=== PATIENT | male | born 1945 | race Caucasian/White ===

== ENCOUNTER 2021-11-02 12:28 | Emergency (ER) | payer MEDICARE ==
[2021-11-02 12:53] VITALS: TEMP 98.8
--- NOTE | 2021-11-02 13:39 | XR ---
EXAMINATION TYPE: XR chest 2V DATE OF EXAM: 11/02/2021 COMPARISON: Chest x-ray 09/17/2021 HISTORY: Difficulty breathing TECHNIQUE: Frontal and lateral views of the chest are obtained. FINDINGS: Interstitial changes are again noted within the lungs. No evident pneumothorax. Cardiac me diastinal silhouette is stable. Aorta is dense. There is mild blunting the costophrenic angles. Bronc hial wall thickening is noted. Suspect there are calcified pleural plaques present. IMPRESSION: Correlate for interstitial lung disease, possible interstitial edema, difficult to exclu de small effusion. CT may be of benefit.
[2021-11-02 13:47] LABS: Basophils # (A) 0.1 k/uL (0-0.2); Basophils % (A) 1 %; Eosinophils # (A) 0.2 k/uL (0-0.7); Eosinophils % (A) 2 %; HCT 42.8 % (39.0-53.0); HGB 13.7 gm/dL (13.0-17.5); Lymphocytes # (A) 0.9 k/uL (1.0-4.8); Lymphocytes % (A) 10 %; MCHC 32.1 g/dL (31.0-37.0); MCV 93.2 fL (80.0-100.0); Mean Platelet Volume 7.4; Monocytes # (A) 0.5 k/uL (0-1.0); Monocytes % (A) 6 %; Neutrophils % (A) 79 %; Platelet Count 212 k/uL (150-450); RBC 4.59 m/uL (4.30-5.90); RDW 13.9 % (11.5-15.5); WBC 8.8 k/uL (3.8-10.6)
[2021-11-02 14:03] LABS: ALT 73 U/L (4-49); AST 55 U/L (17-59); African American GFR (CKD) >90 (>60 ml/min/1.73 sqM); Albumin 4.1 g/dL (3.5-5.0); Alkaline Phosphatase 75 U/L (38-126); Anion Gap 7 mmol/L; Blood Urea Nitrogen 24 mg/dL (9-20); Calcium 8.9 mg/dL (8.4-10.2); Carbon Dioxide 25 mmol/L (22-30); Chloride 106 mmol/L (98-107); Glucose 103 mg/dL (74-99); Non-African American GFR(CKD) 86 (>60 ml/min/1.73 sqM); Potassium 4.5 mmol/L (3.5-5.1); Sodium 138 mmol/L (137-145); Total Bilirubin 1.7 mg/dL (0.2-1.3); Total Protein 7.4 g/dL (6.3-8.2)
[2021-11-02 14:04] LABS: INR 1.1 (<1.2); Partial Thromboplastin Time 28.2 sec (22.0-30.0); Prothrombin Time 11.6 sec (9.0-12.0)
[2021-11-02] MEDS ORDERED: FUROSEMIDE 10 MG/ML 4 ML VIAL IV STA (15:31)
--- NOTE | 2021-11-02 16:21 | CT ---
EXAMINATION TYPE: CT angio chest DATE OF EXAM: 11/02/2021 COMPARISON: Chest x-ray earlier today. HISTORY: Difficulty breathing. CT DLP: 471.3 mGycm. Automated Exposure Control for Dose Reduction was Utilized. CONTRAST: CTA scan of the thorax is performed with IV Contrast, patient injected with 78ml mL of Isovue 370, pu lmonary embolism protocol. MIP Images are created on CT scanner and reviewed. FINDINGS: LUNGS: Exam suboptimal as patient unable to hold breath. There are small to moderate-sized bilateral pleural effusions. There is increased alveolar and interstitial opacities bilaterally consistent with mild to moderate edema. No pneumothorax seen bilaterally. MEDIASTINUM: Suboptimal study due to patient inability to hold breath but no convincing CT evidence f or acute pulmonary embolism. Persistent cardiomegaly. No pericardial effusion. Reflux of contrast int o IVC and hepatic veins consistent with right heart failure. Prominent bilateral hilar and thoracic l ymph nodes. OTHER: Scoliosis with multilevel spurring in the thoracolumbar spine. There is 4.5 x 2.6 cm thin-wal led cyst in the anterior abnormal wall midline lower thorax presumed benign probable dermatologic in etiology axial image 81 IMPRESSION: Suboptimal study without acute pulmonary embolism. Findings consistent with CHF exacerbat ion as there is cardiomegaly with small to moderate-sized bilateral pleural effusions and mild to mod erate alveolar and interstitial edema felt present.
--- NOTE | 2021-11-02 17:48 | ED ---
SOB HPI - General Chief Complaint: Shortness of Breath Stated Complaint: SOB Time Seen by Provider: 11/02/21 12:55 Source: patient, RN notes reviewed Mode of arrival: ambulatory Limitations: no limitations - History of Present Illness Initial Comments: 68-year-old male presents with complaints of shortness of breath with this has been going on for last several days he has exertional dyspnea slight orthopnea no fevers chills nausea vomiting sweats no chest pain. He was instructed to come in for evaluation additionally a echocardiogram was requested. Patient has had a cough with minimal phlegm production MD Complaint: shortness of breath - Related Data Home Medications Medication Instructions Recorded Confirmed Aspirin EC [Ecotrin Low Dose] 81 mg PO DAILY 11/02/21 11/02/21 Ezetimibe [Zetia] 10 mg PO DAILY 11/02/21 11/02/21 Furosemide [Lasix] 20 mg PO MOWEFR 11/02/21 11/02/21 Gabapentin [Neurontin] 400 mg PO BID 11/02/21 11/02/21 Gabapentin [Neurontin] 400 mg PO BID PRN 11/02/21 11/02/21 HYDROcodone/APAP 10-325MG [[place] 1 tab PO QID PRN 11/02/21 11/02/21 10-325] Lansoprazole 30 mg PO DAILY 11/02/21 11/02/21 Meloxicam [Mobic] 15 mg PO DAILY 11/02/21 11/02/21 Metoprolol Tartrate [Lopressor] 25 mg PO BID 11/02/21 11/02/21 lisinopriL [Zestril] 20 mg PO DAILY 11/02/21 11/02/21 modafiniL [Provigil] 200 mg PO DAILY 11/02/21 11/02/21 rOPINIRole HCL [Requip] 8 mg PO HS 11/02/21 11/02/21 Allergies Allergy/AdvReac Type Severity Reaction Status Date / Time No Known Allergies Allergy Verified 11/02/21 14:31 Review of Systems ROS Statement: Those systems with pertinent positive or pertinent negative responses have been documented in the HPI. ROS Other: All systems not noted in ROS Statement are negative. Past Medical History Past Medical History: Heart Failure, Hypertension Additional Past Medical History / Comment(s): esophageal constriction in the past History of Any Multi-Drug Resistant Organisms: None Reported Past Surgical History: Heart Catheterization Past Psychological History: No Psychological Hx Reported Smoking Status: Former smoker Past Alcohol Use History: None Reported Past Drug Use History: None Reported General Exam - General Exam Comments Initial Comments: This is a well-developed well-nourished awake alert oriented 3 male Limitations: no limitations General appearance: alert, in no apparent distress Head exam: Present: atraumatic, normocephalic, normal inspection Eye exam: Present: normal appearance, PERRL, EOMI. Absent: scleral icterus, conjunctival injection, periorbital swelling ENT exam: Present: normal exam, mucous membranes moist Neck exam: Present: normal inspection, full ROM, other. Absent: tenderness, meningismus, lymphadenopathy Respiratory exam: Present: normal lung sounds bilaterally, decreased breath sounds (No stridor JVD or bruits). Absent: respiratory distress, wheezes, rales, rhonchi, stridor Cardiovascular Exam: Present: regular rate, normal rhythm, normal heart sounds. Absent: systolic murmur, diastolic murmur, rubs, gallop, clicks GI/Abdominal exam: Present: soft, normal bowel sounds. Absent: distended, tenderness, guarding, rebound, rigid Extremities exam: Present: normal inspection, full ROM, normal capillary refill. Absent: tenderness, pedal edema, joint swelling, calf tenderness Back exam: Present: normal inspection Neurological exam: Present: alert, oriented X3, CN II-XII intact Psychiatric exam: Present: normal affect, normal mood Skin exam: Present: warm, dry, intact, normal color. Absent: rash Course Vital Signs 11/02/21 11/02/21 11/02/21 12:48 13:30 17:11 Temperature 98.8 F Pulse Rate 67 62 Respiratory 24 20 20 Rate Blood Pressure 143/81 132/80 O2 Sat by Pulse 94 L 96 Oximetry Medical Decision Making - Medical Decision Making I did a long discussion with patient regarding findings he does not want stay in the hospital we did discuss admission he prefer to go home he will double up on Lasix and start taking them daily for next couple days follow-up with his doctor as are have an appointment with cardiology next today being Tuesday echocardiogram was artery performed. We did discuss return parameters additionally he does state that he feels better after the initial Lasix dose. He has increased aeration and less - Lab Data Result diagrams: 11/02/21 13:34 11/02/21 13:34 Lab Results 11/02/21 11/02/21 11/02/21 Range/Units 13:34 13:34 13:34 WBC 8.8 (3.8-10.6) k/uL RBC 4.59 (4.30-5.90) m/uL Hgb 13.7 (13.0-17.5) gm/dL Hct 42.8 (39.0-53.0) % MCV 93.2 (80.0-100.0) fL MCH 30.0 (25.0-35.0) pg MCHC 32.1 (31.0-37.0) g/dL RDW 13.9 (11.5-15.5) % Plt Count 212 (150-450) k/uL MPV 7.4 Neutrophils % 79 % Lymphocytes % 10 % Monocytes % 6 % Eosinophils % 2 % Basophils % 1 % Neutrophils # 7.0 (1.3-7.7) k/uL Lymphocytes # 0.9 L (1.0-4.8) k/uL Monocytes # 0.5 (0-1.0) k/uL Eosinophils # 0.2 (0-0.7) k/uL Basophils # 0.1 (0-0.2) k/uL PT 11.6 (9.0-12.0) sec INR 1.1 (<1.2) APTT 28.2 (22.0-30.0) sec D-Dimer 0.88 H (<0.60) mg/L FEU Sodium 138 (137-145) mmol/L Potassium 4.5 (3.5-5.1) mmol/L Chloride 106 (98-107) mmol/L Carbon Dioxide 25 (22-30) mmol/L Anion Gap 7 mmol/L BUN 24 H (9-20) mg/dL Creatinine 0.79 (0.66-1.25) mg/dL Est GFR (CKD-EPI)AfAm >90 (>60 ml/min/1.73 sqM) Est GFR (CKD-EPI)NonAf 86 (>60 ml/min/1.73 sqM) Glucose 103 H (74-99) mg/dL Plasma Lactic Acid Krishna (0.7-2.0) mmol/L Calcium 8.9 (8.4-10.2) mg/dL Magnesium 2.0 (1.6-2.3) mg/dL Total Bilirubin 1.7 H (0.2-1.3) mg/dL AST 55 (17-59) U/L ALT 73 H (4-49) U/L Alkaline Phosphatase 75 (38-126) U/L Troponin I (0.000-0.034) ng/mL NT-Pro-B Natriuret Pep pg/mL Total Protein 7.4 (6.3-8.2) g/dL Albumin 4.1 (3.5-5.0) g/dL 11/02/21 11/02/21 11/02/21 Range/Units 13:34 13:34 13:34 WBC (3.8-10.6) k/uL RBC (4.30-5.90) m/uL Hgb (13.0-17.5) gm/dL Hct (39.0-53.0) % MCV (80.0-100.0) fL MCH (25.0-35.0) pg MCHC (31.0-37.0) g/dL RDW (11.5-15.5) % Plt Count (150-450) k/uL MPV Neutrophils % % Lymphocytes % % Monocytes % % Eosinophils % % Basophils % % Neutrophils # (1.3-7.7) k/uL Lymphocytes # (1.0-4.8) k/uL Monocytes # (0-1.0) k/uL Eosinophils # (0-0.7) k/uL Basophils # (0-0.2) k/uL PT (9.0-12.0) sec INR (<1.2) APTT (22.0-30.0) sec D-Dimer (<0.60) mg/L FEU Sodium (137-145) mmol/L Potassium (3.5-5.1) mmol/L Chloride (98-107) mmol/L Carbon Dioxide (22-30) mmol/L Anion Gap mmol/L BUN (9-20) mg/dL Creatinine (0.66-1.25) mg/dL Est GFR (CKD-EPI)AfAm (>60 ml/min/1.73 sqM) Est GFR (CKD-EPI)NonAf (>60 ml/min/1.73 sqM) Glucose (74-99) mg/dL Plasma Lactic Acid Krishna 0.7 (0.7-2.0) mmol/L Calcium (8.4-10.2) mg/dL Magnesium (1.6-2.3) mg/dL Total Bilirubin (0.2-1.3) mg/dL AST (17-59) U/L ALT (4-49) U/L Alkaline Phosphatase (38-126) U/L Troponin I <0.012 (0.000-0.034) ng/mL NT-Pro-B Natriuret Pep 6620 pg/mL Total Protein (6.3-8.2) g/dL Albumin (3.5-5.0) g/dL - EKG Data -: EKG Interpreted by Me EKG shows normal: sinus rhythm EKG Comments: Sinus rhythm of 56. Interval 169 QRS duration 102 QT since QTC 448/439 nonspecific T-wave configuration PVC noted - Radiology Data Radiology results: report reviewed, image reviewed (Imaging reviewed evidence of increased pulmonary vascular congestion) Disposition Clinical Impression: Congestive heart failure Disposition: HOME SELF-CARE Condition: Good Instructions (If sedation given, give patient instructions): Heart Failure (ER) Is patient prescribed a controlled substance at d/c from ED?: No Referrals: Jacob Solano MD [Primary Care Provider] - 1-2 days Decision Time: 17:35
[2021-11-02 18:00] VITALS: BP 138/85; PULSE 56; RESP 18
--- NOTE | 2021-11-03 06:57 | ECHOF ---
Referral Reason:Dyspnea MEASUREMENTS -------- HEIGHT: 170.2 cm WEIGHT: 77.1 kg BP: RVIDd: 4.4 cm (< 3.3) IVSd: 1.2 cm (0.6 - 1.1) LVIDd: 5.5 cm (3.9 - 5.3) LVPWd: 1.1 cm (0.6 - 1.1) IVSs: 1.6 cm LVIDs: 4.9 cm LVPWs: 1.2 cm LAESV Index (A-L): 62.37 ml/m MV EXCURSION: 15.495 mm (> 18.000) MV EF SLOPE: 47 mm/s (70 - 150) EPSS: 0.8 cm AV maxP.44 mmHg AV meanP.82 mmHg AR PHT: 415 ms RAP: 10.00 mmHg RVSP: 73.48 mmHg FINDINGS -------- Sinus rhythm. This was a technically adequate study. The left ventricular size is normal. There is mild concentric left ventricular hypertrophy. Overa ll left ventricular systolic function is mild-moderately impaired with, an EF between 40 - 45 %. The right ventricle is severely enlarged. LA is severely dilated >40 ml/m2 The right atrial size is normal. There is severe aortic valve sclerosis. There is mild aortic regurgitation. There is moderate-to- severe aortic stenosis present. Peak/mean gradient across the Aortic Valve is 64.44mmHg / 34.82mmHg . Moderate mitral annular calcification present. Tbcouszc-ba-lhvazj mitral regurgitation is present. Moderate tricuspid regurgitation present. There is severe pulmonary hypertension. The right ventr icular systolic pressure, as measured by Doppler, is 73.48mmHg. Trace/mild (physiologic) pulmonic regurgitation. There is no pericardial effusion. Large Pleural Effusion. CONCLUSIONS -------- 1. There is mild concentric left ventricular hypertrophy. 2. Overall left ventricular systolic function is mild-moderately impaired with, an EF between 40 - 45 %. 3. The right ventricle is severely enlarged. 4. LA is severely dilated >40 ml/m2 5. There is mild aortic regurgitation. 6. There is ufbvczre-jt-swkvmn aortic stenosis present. 7. Peak/mean gradient across the Aortic Valve is 64.44mmHg / 34.82mmHg. 8. Ztdwpyev-py-jnuwht mitral regurgitation is present. 9. Moderate tricuspid regurgitation present. 10. There is severe pulmonary hypertension. 11. Trace/mild (physiologic) pulmonic regurgitation. MILK DRYING MACHINE OPERATOR: Melodie Gay RDCS
== END 2021-11-02 18:00 | disposition home or self-care (01) ==
LOC: EC 12:28
DX: I11.0 Hypertensive heart disease with heart failure (principal); I50.9 Heart failure, unspecified; Z87.891 Personal history of nicotine dependence; Z79.899 Other long term (current) drug therapy
CPT/HCPCS: 36415; 93005; 93306; 85379; 83880; 80053; 83605; 83735; 84484; 85025; 85610; 85730; 71046; 71275; 99285; 96374; J1940; Q9967

== ENCOUNTER → 2022-01-04 | Outpatient (CLI) | payer MEDICARE ==
[2022-01-04 12:24] LABS: INR 1.1 (<1.2); Partial Thromboplastin Time 27.9 sec (22.0-30.0); Prothrombin Time 11.4 sec (9.0-12.0)
[2022-01-04 17:55] LABS: Albumin 4.2 g/dL (3.8-4.9); Albumin/Globulin Ratio 1.49 (1.60-3.17); BUN/Creat Ratio 38.43 Ratio (12.00-20.00); Blood Urea Nitrogen 30.9 mg/dL (9.0-27.0); Calcium 9.2 mg/dL (8.7-10.3); Globulin 2.8 g/dL (1.6-3.3); Non-African American GFR(CKD) 85.4 (60.0-200.0); Potassium 4.4 mmol/L (3.5-5.5); Total Bilirubin 0.5 mg/dL (0.30-1.20); Total Protein 7.1 g/dL (6.2-8.2)
[2022-01-04 17:57] LABS: HCT 41.9 % (39.6-50.0); HGB 13.2 g/dL (13.0-17.0); MCH 29.2 pg (27.0-32.0); MCHC 31.5 g/dL (32.0-37.0); MCV 92.7 fL (80.0-97.0); NRBC Per 100 WBC 0 /100 WBCS (0.0-0.0); Platelet Count 187 X 10*3/uL (140-440); RBC 4.52 X 10*6/uL (4.40-5.60); RDW 14.6 % (11.5-14.5); WBC 5.96 X 10*3/uL (4.50-10.00)
== END | disposition home or self-care (01) ==
LOC: LABPAT 10:29
PROVIDERS: ATTEND Thoracic Surgery (Cardiothoracic Vascular Surgery)
DX: I35.0 Nonrheumatic aortic (valve) stenosis (principal)
CPT/HCPCS: 80053; 85027; 85610; 85730

== ENCOUNTER 2022-01-06 06:03 | Inpatient (IN) | payer MEDICARE ==
[~2022-01-06 06:03] MED LIST: ASPIRIN 325 MG TAB PO ONE; ATORVASTATIN 10 MG TAB PO ONE; CLEVIDIPINE BUTYRATE 25 MG in EMPTY BAG 1 BAG IV PRN; CLOPIDOGREL 75 MG TAB PO ONE; ELECTROLYTE-A SOLUTION 1,000 ML with POTASSIUM CHLORIDE 100 MEQ, MAGNESIUM SULFATE 16 M... IV PRN; INSULIN REGULAR 100 UNIT in SODIUM CHLORIDE 0.9% 100 ML IV PRN; LACTATED RINGERS 1,000 ML IV SCH; METOPROLOL TARTRATE 25 MG TAB PO ONE; NITROGLYCERIN-D5W PMX 25 MG/250 ML BTL IV PRN; PROTAMINE SULFATE 250 MG in EMPTY BAG 1 BAG IV PRN; SODIUM CHLORIDE 0.9% 500 ML 500 ML INTRAARTER PRN; TRANEXAMIC ACID 2,000 MG in SODIUM CHLORIDE 0.9% 80 ML IV PRN
[2022-01-06] MEDS ORDERED: GLYCOPYRROLATE 0.2 MG/ML 2 ML VIAL ONE (07:44)
[2022-01-06] MEDS ORDERED: methylPREDNISolone ACETATE 40 MG/ML 1 ML VIAL ONE (07:44)
[2022-01-06] MEDS ORDERED: PROPOFOL 10 MG/ML 20 ML VIAL IV ONE (07:44)
[2022-01-06] MEDS ORDERED: MIDAZOLAM 2 MG/2 ML VIAL ONE (07:44)
[2022-01-06] MEDS ORDERED: ATROPINE SULFATE 0.1 MG/ML 10ML SYRINGE ONE (07:44)
[2022-01-06] MEDS ORDERED: PROTAMINE SULFATE 10 MG/ML 5 ML VIAL IV ONE (07:44)
[2022-01-06] MEDS ORDERED: ePHEDrine 50 MG/ML 1 ML VIAL ONE (07:44)
[2022-01-06] MEDS ORDERED: fentaNYL (PF) 50 MCG/ML 2 ML AMP ONE (07:44)
[2022-01-06] MEDS ORDERED: NEOSTIGMINE 1 MG/ML 10 ML VIAL ONE (07:44)
[2022-01-06] MEDS ORDERED: SUCCINYLCHOLINE CHLORIDE 100 MG/5 ML SYR IV ONE (07:44)
[2022-01-06] MEDS ORDERED: LIDOCAINE 2% INJ 20 MG/ML (2 ML VIAL) ONE (07:44)
[2022-01-06] MEDS ORDERED: ROCURONIUM 10 MG/ML (5 ML VIAL) IV ONE (07:44)
[2022-01-06] MEDS ORDERED: IOPAMIDOL-370 125ML BTL INJ ONE (09:17)
[2022-01-06] MEDS ORDERED: GABAPENTIN 400 MG CAP PO PRN (09:44)
[2022-01-06] MEDS ORDERED: ONDANSETRON 4 MG/2 ML VIAL IVP PRN (09:44)
[2022-01-06] MEDS ORDERED: ACETAMINOPHEN TAB 325 MG TAB PO PRN (09:44)
[2022-01-06] MEDS ORDERED: Potassium Replacement Protocol 1 EACH MISC MISCELLANE PRN (09:44)
[2022-01-06] MEDS ORDERED: Magnesium Replacement Protocol 1 EACH MISC MISCELLANE PRN (09:44)
[2022-01-06] MEDS ORDERED: LACTATED RINGERS 1,000 ML IV SCH (09:44)
[2022-01-06] MEDS ORDERED: IPRATROPIUM-ALBUTEROL 3 ML NEB INHALATION PRN (09:44)
--- NOTE | 2022-01-06 09:59 | P.OP ---
Description of Procedure: Transcatheter Aoritc Valve Replacement Operative report PROCEDURE PERFORMED: 1. Percutaneous Aortic Valve Implantation using a 29 mm Core-Valve Evolut-Pro Plus. 2. Transesophageal echocardiography (performed by anesthesia) 3. Ultrasound guided access and repair of right femoral artery access site by Perclose closure device. 4. Placement of temporary pacemaker wire. 5. Aortic root angiography 6. Post TAVR balloon valvuloplasty with a 26mm Z Med balloon INDICATIONS: 1. 76 year-old with a history of severe symptomatic aortic valve stenosis. PERFORMING PHYSICIANS: 1. David Morales DO Interventional Cardiology 2. Renaldo Bautista MD Interventional Cardiology. 3. Wesley Walden MD, Cardiothoracic Surgeon. 4. Ad Sinha MD Proctoring Interventional cardiology SEDATION: General anesthesia provided by anesthesia, see separate note APPROACH: Right femoral artery via percutaneous approach PROCEDURE DESCRIPTION: The patient was discussed at valve clinic with multidisciplinary approach with cardiothoracic surgeon as well as water manager and thought better treated with TAVR. Risks, benefits, and alternatives of the procedure had been explained to the patient who understood the risks and agreed to proceed. After consents were obtained, patient was brought to the transcatheter aortic valve implantation room in the cardiac laborer shellfish processing and general anesthesia was provided by the anesthesiologist (see separate report). Patient did have a transient 3rd degree block with HR into 30's for 30-60 seconds during intubation which he tolerated well and then improved, may have been related to hypervagal reaction. Once full body sterile prep was performed, right subclavian venous access was obtained and a temporary pacemaker was screwed in, performed by cardiothoracic surgery. Pacing threshholds were checked and deemed appropriate. Next the left femoral artery was accessed using a modified Seldinger technique, ultrasound guidance and micropuncture technique. A 6 Surinamese Rabi sheath was placed in the left femoral artery. Next, a 6-Surinamese pigtail catheter was advanced into the aorta and positioned in the aortic root, aortic root angiography was performed to determine optimal deployment angle. The right femoral artery was accessed using modified Seldinger technique, micropuncture technique and under direct ultrasound guidance. Femoral angiogram was done showing access in the common femoral artery and a 6Fr sheath was placed. Next preclose technique was performed using 2 Percloses. Next a 0.035 Lunderquist wire was placed in the Aorta via a pigtail catheter. Over that the arteriotomy was serially dilated and a 14 Fr [place] sheath was placed. Next a 6F- AL1 catheter was advanced over a wire to the aortic root. A straight wire was advanced through the catheter and used to cross the severely stenotic valve. The AL1 was then exchanged for a 6Fr pigtail catheter and pressure measurements were obtained. The 0.035 Lunderquist wire was then positioned in the apex. Next a 29 mm Corevalve Evolut-Pro Plus was advanced. The valve was then positioned across the aortic valve and confirmed with aortic root angiography. The valve was initially partially deployed however needed repositioning and therefore was recaptured. The valve was then deployed in proper position using slow deployment and with rapid pacing in conjuncture with aortic root angiography and МАРИНА. The delivery system was withdrawn back into the arch and an aortic root injection and МАРИНА demonstrated mild to moderate paravalvular leak and a somewhat deeply seated valve. Therefore the decision was made to perform valvuloplasty. Balloon valvuloplasty was performed with a 26 mm Z Med balloon with gentle back traction. Repeat МАРИНА and aortic root angiography showed some improvement and positioning and more mild to moderate paravalvular leak. Further dilation was felt to have risk of ventricularization of valve and there was adequate shmuel stolic separation on hemodynamics and therefore decision was made to end the procedure. The preclose Perclose was then deployed in the right femoral artery and hemostasis was achieved. The pigtail was then advanced to the level of the iliac bifurcation via the left femoral access. Femoral angiogram was performed that showed no contrast leak. The left femoral angiogram demonstrated an arteriotomy in the common femoral artery and this was repaired using a 6F angioseal device with complete hemostasis. The temporary venous pacemaker was sutured in place. The patient was then transported to the ICU in hemodynamically stable condition, requiring no pressor support. COMPLICATIONS: None CONCLUSION: 1. Implantaion of 26 Core-Valve Evolut-Pro Plus transcatheter aortic valve via right femoral approach under МАРИНА and fluoro guidance with mild to moderate xu- valvular aortic regurgitation. 2. Placement of temporary pacemaker wire 3. Aortic Root Aortogram. 4. Post TAVR balloon valvuloplasty with a 26mm Z Med balloon 5. Temporary 3rd degree block during initiation of anesthesia which improved throughout case. Likely related to hypervagal response. RECOMMENDATIONS: The patient will be monitored in the ICU for hemodynamic and electrical stability. Patient will be on aspirin and Plavix.
--- NOTE | 2022-01-06 10:01 | P.ANPRN ---
Procedure Note - Anesthesia - Invasive Line Left Arterial Line Time Out Performed: Yes Date of Procedure: 01/06/22 Time of Procedure: 07:25 Location of Patient: PreOp Preparation: Sterile Prep, Sterile Dressing Arterial Line Location: Radial Ultrasound Used: No Narrative: Left radial arterial line placed by TELESALES AGENT
--- NOTE | 2022-01-06 10:03 | P.OP ---
Date of Procedure: 01/06/22 Preoperative Diagnosis: Symptomatic calcific aortic stenosis Postoperative Diagnosis: Same Procedure(s) Performed: Right transfemoral transcatheter aortic valve replacement with 29 mm core valve Implants: 29 mm Medtronic Corvalve Anesthesia: GETA Surgeon: Wesley Walden Manager Produce #1: David Morales (First captain room service) Manager Produce #2: Renaldo Bautista (Second captain room service) Estimated Blood Loss (ml): 20 IV fluids (ml): 500 Urine output (ml): 0 Pathology: none sent Condition: stable Disposition: ICU Indications for Procedure: 76-year-old male with symptomatic tricuspid aortic valvular stenosis scheduled for elective transcatheter aortic valve. Operative Findings: Final МАРИНА demonstrated low implant with mild to moderate aortic insufficiency Description of Procedure: Patient was brought to the cardiac catheterization laboratory and placed supine on the table. General anesthesia was induced. Patient had some third degree heart block following induction. The anterior torso and bilateral groins were sterilely prepped and draped. Right subclavian venous access was obtained with an 18-gauge needle and a guidewire threaded into the right atrium. Introducer and dilator were placed over the guidewire and through the introducer sheath a Medtronic screw-in ventricular lead was manipulated into the apex of the right ventricle. Pacing thresholds were 0.4 mV. The lead was secured in place with suture ligatures. Bilateral femoral access was obtained under ultrasound guidance by Dr. Morales. On the left long 6-Albanian sheath was placed up into the descending thoracic aorta and a pigtail threaded through this into the non- coronary cusp of the aortic root. On the right 7-Albanian sheath was placed under ultrasound into the right femoral artery and 2 Perclose devices were then deployed. An 8-[place]banian sheath was placed. The patient was systemically heparinized. Stiff wire was placed on the right and the 8-Albanian sheath exchanged for a 14-Albanian sheath after serial dilatation. This was advanced without difficulty into the descending thoracic aorta. Through this the valve was crossed with a straight wire and a Lunderquist wire was positioned in the apex of the ventricle. 29 Medtronic evolute Pro-plus core valve was loaded on the back table. It was brought up onto the field and checked under fluoroscopy. A 14-Albanian sheath was exchanged for the core valve delivery system and this was advanced around the arch without difficulty and across the aortic valve. The valve was initially deployed at levels of 2 on the right and 3 on the left. After release of the valve was noted that the valve had dropped. There was mild to moderate aortic insufficiency noted. The valve was recrossed and Lunderquist wire again positioned at the apex. The core valve delivery system was exchanged for a 14-Albanian sheath. Through this a 26 mm balloon was advanced across the prosthetic valve. Under rapid ventricular pacing this valve was dilated and an attempt was made to pull it back. All of this proceeded uneventfully however did not change the position of the valve and although the valve appeared more expanded there remained mild to moderate aortic insufficiency. Was decided to accept this. Heparin was reversed with protamine. The 14-Albanian sheath was removed and the Perclose devices deployed with excellent result. Femoral angiography demonstrated no leak and no narrowing. Good flow was noted in the right leg. The sheath was removed on the left and stasis obtained with direct pressure. Patient was transferred to the ICU after extubation in stable condition and in normal sinus rhythm.
[2022-01-06 10:13] VITALS: BMI 27.5
[2022-01-06] MEDS: HYDROcodone/APAP 10-325MG 1 EACH TAB PO PRN ×2 (10:18→20:48)
[2022-01-06] MEDS: EZETIMIBE 10 MG TAB PO SCH (10:19)
--- NOTE | 2022-01-06 10:25 | P.ANPRN ---
Procedure Note - Anesthesia - МАРИНА Intraop Pre Bypass МАРИНА Intraop - Anesthesia Indication: Aortic Stenosis Date of Procedure: 01/06/22 Pre-operative Diagnosis: Aortic Stenosis Post-operative Diagnosis: Same Surgeon: Wesley Walden Left Ventricle: EF 35% Ejection Fraction: Other (Global hypokinesis) Regional Wall Motion Abnormalities: None Left Ventricle Hypertrophy: Yes (1.4 cm) R. Ventricle Function: Normal Anatomy: Trileaflet Aortic Stenosis: Severe (Peak 78 mmHg, Mean 42 mmHg) Aortic Regurgitation: Mild Mitral Stenosis: None Mitral Regurgitation: Mild Tricuspid Stenosis: None Tricuspid Regurgitation: Trace Pulmonic Stenosis: None Pulmonic Regurgitation: Trace R. Atrial Dilation: No R. Atrial PFO: No L. Atrial Dilation: No Aorta: Moderate calcific disease Aortic Dissection: No Aortic Calcification: Moderate Plural Effusion: None - МАРИНА Intraop Post Bypass МАРИНА Intraop Post Bypass Procedure Performed: TAVR Left Ventricle: EF 35% Ejection Fraction: Other Regional Wall Motion Abnormalities: None R. Ventricle Function: Normal Aortic Valve: S/p TAVR and ballooning. Gradient Peak 7 mmHg, Mean 2 mmHg. Moderate perivalvular leak at [facility]. Some improvement after ballooning. Mitral Valve: MR slightly increased to 2+ Tricuspid: Unchanged Pulmonic: Unchanged Aortic Dissection: No
--- NOTE | 2022-01-06 10:43 | P.CNPUL ---
History of Present Illness Consult date: 01/06/22 Chief complaint: TAVR History of present illness: This is a 76-year-old male patient is currently post TAVR procedure. The patient underwent a transfemoral transcatheter aortic valve replacement. This was done on an elective basis. The patient is currently in the intensive care unit. The patient is doing well. Awake and alert. Moving all 4 extremities. No neurologic deficits. No headaches been altered mentation. His underlying silent cardiac rhythm is sinus bradycardia and the patient is currently paced at the rate of 50. He is hemodynamically stable on no pressors. Surgical wound sites over the groins bilaterally are dry clean and intact. The patient has no active complaints for now. His resting comfortably in bed. The patient is known to have severe aortic stenosis. His other comorbid conditions include hypertension, hyperlipidemia, previous history of acid reflux and esophageal strictures along with restless leg syndrome and osteoarthritis. He was experiencing progressive dyspnea on outpatient basis. He underwent a cardiac catheterization preoperatively and the patient was found to have calcified coronaries and mild triple-vessel disease and severe aortic stenosis. His left ventricle ejection fraction preoperatively was around 40-45% and he also had severe pulmonary hypertension with mild concentric LVH. Review of Systems Constitutional: Denies chills, Denies fever Eyes: denies as per HPI, denies blurred vision, denies bulging eye, denies decreased vision, denies diplopia, denies discharge, denies dry eye, denies irritation, denies itching, denies pain, denies photophobia, denies loss of peripheral vision, denies loss of vision, denies tunnel vision/blind spots Ears: deny: decreased hearing, ear discharge, earache, tinnitus Ears, nose, mouth and throat: Reports as per HPI Breasts: absent: as per HPI, gynecomastia Cardiovascular: Reports as per HPI, Reports decreased exercise tolerance, Reports dyspnea on exertion Respiratory: Reports dyspnea Gastrointestinal: Reports as per HPI Genitourinary: Reports as per HPI Musculoskeletal: Reports as per HPI Musculoskeletal: absent: ankle pain, ankle stiffness, ankle swelling, as per HPI, elbow pain, elbow stiffness, elbow swelling, foot pain, foot stiffness, foot swelling, hand pain, hand stiffness, hand swelling, hip pain, hip stiffness, hip swelling, knee pain, knee stiffness, knee swelling, shoulder pain, shoulder stiffness, shoulder swelling, wrist pain, wrist stiffness, wrist swelling Integumentary: Reports as per HPI Neurological: Reports as per HPI Psychiatric: Reports as per HPI Endocrine: Reports as per HPI Hematologic/Lymphatic: Reports as per HPI Allergic/Immunologic: Reports as per HPI Past Medical History Past Medical History: Heart Failure, GERD/Reflux, Hyperlipidemia, Hypertension, Musculoskeletal Disorder, Osteoarthritis (OA) Additional Past Medical History / Comment(s): esophageal constriction in the past, aortic valve issue, RLS, past hx. of compression fx. in back after a fall, chronic back pain, SOB w/exertion but improved recently History of Any Multi-Drug Resistant Organisms: None Reported Past Surgical History: Heart Catheterization Additional Past Surgical History / Comment(s): colonoscopy, EGD, МАРИНА Past Anesthesia/Blood Transfusion Reactions: No Reported Reaction Smoking Status: Former smoker Medications and Allergies Home Medications Medication Instructions Recorded Confirmed Type Aspirin EC [Ecotrin Low Dose] 81 mg PO DAILY 11/02/21 01/06/22 History Ezetimibe [Zetia] 10 mg PO DAILY 11/02/21 01/06/22 History Furosemide [Lasix] 20 mg PO DAILY 11/02/21 01/06/22 History Gabapentin [Neurontin] 400 mg PO QID PRN 11/02/21 01/06/22 History HYDROcodone/APAP 10-325MG [[place] 1 tab PO QID PRN 11/02/21 01/06/22 History 10-325] Lansoprazole 30 mg PO DAILY 11/02/21 01/06/22 History Meloxicam [Mobic] 15 mg PO DAILY 11/02/21 01/06/22 History Metoprolol Tartrate [Lopressor] 25 mg PO BID 11/02/21 01/06/22 History lisinopriL [Zestril] 20 mg PO DAILY 11/02/21 01/06/22 History modafiniL [Provigil] 200 mg PO DAILY 11/02/21 01/06/22 History rOPINIRole HCL [Requip] 8 mg PO HS 11/02/21 01/06/22 History Pramipexole [Mirapex] 0.5 mg PO HS 11/17/21 01/06/22 History Allergies Allergy/AdvReac Type Severity Reaction Status Date / Time No Known Allergies Allergy Verified 12/30/21 12:22 Physical Exam Vitals: Vital Signs Temp Pulse Resp BP BP Pulse Ox 01/06/22 06:55 97.8 F 45 L 16 138/67 135/67 98 Intake and Output 01/05/22 01/06/22 01/06/22 22:59 06:59 14:59 Intake Total 400 400 Balance 400 400 Intake: IV 400 400 Other: Weight 75.1 kg 75.1 kg Gen. appearance the patient is calm and comfortable currently on 2 L of oxygen by nasal cannula Head exam was generally normal. There was no scleral icterus or corneal arcus. Mucous membranes were moist. Neck was supple and without jugular venous distension, thyromegaly, or carotid bruits. Carotids were easily palpable bilaterally. There was no adenopathy. The patient has a right subclavian transvenous pacemaker catheter for now Lungs were clear to auscultation and percussion, and with normal diaphragmatic excursion. No wheezes or rales were noted. Cardiac exam revealed the PMI to be normally situated and sized. The rhythm was regular and no extrasystoles were noted during several minutes of auscultation. The first and second heart sounds were normal and physiologic splitting of the second heart sound was noted. There were no murmurs, rubs, clicks, or gallops. Abdominal exam revealed normal bowel sounds. The abdomen was soft, non-tender, and without masses, organomegaly, or appreciable enlargement of the abdominal aorta. Examination of the extremities revealed easily palpable radial, femoral and pedal pulses. There was no cyanosis, clubbing or edema. Examination of the skin revealed no evidence of significant rashes, suspicious appearing nevi or other concerning lesions. Neurologically, the patient is awake and alert and the patient does not have any focal neurological deficit. Cranial nerves are essentially intact. Results - Diagnostic Findings Chest x-ray: image reviewed Assessment and Plan Plan: Severe Aortic stenosis, post TAVR , postop day #0. Hemodynamically stable. The patient is encountered sinus bradycardia and the patient is currently paced at the rate of 50. Chest x-ray postop shows no acute abnormalities. No focal neurological deficit and the patient is neurologically intact at this point in time. Mild coronary artery disease, please refer to the preop cardiac catheterization Hypertension Hyperlipidemia Mild systolic heart failure with an ejection fraction 40-45% severe pulmonary hypertension preoperatively History of esophageal stricture with issues related to GE reflux Restless leg syndrome Osteoarthritis Hyperlipidemia Plan Monitor the cardiac rhythm and keep the cardiac rhythm paced at the rate of 50 Echocardiogram to be repeated tomorrow to evaluate for the bioprosthetic aortic valve And paralytic antibiotic coverage with IV cefazolin Heparin subcu for DVT prophylaxis Monitor neurologic outcome Monitor hemodynamics even the intensive care unit Resume all medications and keep the beta blockers on hold for now
--- NOTE | 2022-01-06 11:04 | XR ---
EXAMINATION TYPE: XR chest 1V portable DATE OF EXAM: 01/06/2022 COMPARISON: 11/02/2021 HISTORY: Postoperative cardiac surgery TECHNIQUE: Single frontal view of the chest is obtained. FINDINGS: Heart is enlarged and there is a right-sided cardiac lead. Hyperinflation suggests COPD is a diffuse interstitial pattern compatible with chronic interstitial pulmonary fibrosis. Calcified no dules are seen in the upper lungs bilaterally. Diffuse osteopenia. No pleural effusion. No pneumothor ax. Atherosclerotic change aorta. IMPRESSION: 1. COPD correlate for chronic interstitial lung disease. Pleural plaques are calcified granulomas lef t upper lobe.
[2022-01-06 11:05] LABS: Ionized Calcium 4.8 mg/dL (4.5-5.3)
[2022-01-06 11:13] LABS: ALT 18 U/L (4-49); AST 23 U/L (17-59); African American GFR (CKD) >90 (>60 ml/min/1.73 sqM); Albumin 3.2 g/dL (3.5-5.0); Alkaline Phosphatase 62 U/L (38-126); Anion Gap 5 mmol/L; Blood Urea Nitrogen 26 mg/dL (9-20); Carbon Dioxide 25 mmol/L (22-30); Chloride 108 mmol/L (98-107); Glucose 119 mg/dL (74-99); Magnesium 1.9 mg/dL (1.6-2.3); Non-African American GFR(CKD) >90 (>60 ml/min/1.73 sqM); Sodium 138 mmol/L (137-145); Total Bilirubin 0.5 mg/dL (0.2-1.3); Total Protein 5.9 g/dL (6.3-8.2)
[2022-01-06 11:18] LABS: INR 1.1 (<1.2); Partial Thromboplastin Time 29.8 sec (22.0-30.0); Prothrombin Time 11.6 sec (9.0-12.0)
[2022-01-06 11:19] LABS: Basophils % (A) 0 %; Eosinophils # (A) 0.2 k/uL (0-0.7); Eosinophils % (A) 4 %; HCT 38.5 % (39.0-53.0); Lymphocytes # (A) 0.9 k/uL (1.0-4.8); Lymphocytes % (A) 13 %; MCH 29.8 pg (25.0-35.0); MCHC 31.1 g/dL (31.0-37.0); Mean Platelet Volume 7.4; Monocytes # (A) 0.4 k/uL (0-1.0); Monocytes % (A) 6 %; Neutrophils # (A) 4.8 k/uL (1.3-7.7); Neutrophils % (A) 74 %; Platelet Count 155 k/uL (150-450); RBC 4.01 m/uL (4.30-5.90); RDW 14.2 % (11.5-15.5); WBC 6.4 k/uL (3.8-10.6)
[2022-01-06] MEDS: MAGNESIUM SULFATE-D5W PMX 1 GM in DEXTROSE/WATER 1 100ML.BAG IVPB SCH ×2 (12:45→15:12)
[2022-01-06] MEDS: METOPROLOL TARTRATE 25 MG TAB PO SCH (20:48)
[2022-01-06] MEDS ORDERED: PRAMIPEXOLE 0.5 MG TAB PO SCH (21:00)
[2022-01-06] MEDS ORDERED: rOPINIRole HCL 4 MG TABLET PO SCH (21:00)
[2022-01-07] MEDS: HEPARIN SODIUM,PORCINE/PF 5,000 UNIT/0.5 ML SYRINGE SQ SCH ×2 (00:02→09:08)
[2022-01-07] MEDS ORDERED: MAGNESIUM SULFATE-D5W PMX 1 GM in DEXTROSE/WATER 1 100ML.BAG IVPB SCH (05:00)
[2022-01-07] MEDS: HYDROcodone/APAP 10-325MG 1 EACH TAB PO PRN (06:23)
[2022-01-07 06:46] LABS: Ionized Calcium 4.9 mg/dL (4.5-5.3)
[2022-01-07 06:54] LABS: ALT 19 U/L (4-49); AST 26 U/L (17-59); African American GFR (CKD) >90 (>60 ml/min/1.73 sqM); Albumin 3.7 g/dL (3.5-5.0); Alkaline Phosphatase 70 U/L (38-126); Anion Gap 6 mmol/L; Blood Urea Nitrogen 20 mg/dL (9-20); Calcium 8.5 mg/dL (8.4-10.2); Carbon Dioxide 28 mmol/L (22-30); Chloride 104 mmol/L (98-107); Glucose 105 mg/dL (74-99); Magnesium 2.3 mg/dL (1.6-2.3); Non-African American GFR(CKD) >90 (>60 ml/min/1.73 sqM); Potassium 4.8 mmol/L (3.5-5.1); Sodium 138 mmol/L (137-145); Total Bilirubin 0.7 mg/dL (0.2-1.3); Total Protein 6.6 g/dL (6.3-8.2)
[2022-01-07 06:57] LABS: Basophils % (A) 0 %; Eosinophils # (A) 0.2 k/uL (0-0.7); Eosinophils % (A) 2 %; HGB 12.4 gm/dL (13.0-17.5); Lymphocytes # (A) 0.9 k/uL (1.0-4.8); Lymphocytes % (A) 9 %; MCH 28.6 pg (25.0-35.0); MCHC 30.3 g/dL (31.0-37.0); MCV 94.4 fL (80.0-100.0); Mean Platelet Volume 7.2; Monocytes # (A) 0.7 k/uL (0-1.0); Monocytes % (A) 7 %; Neutrophils # (A) 7.9 k/uL (1.3-7.7); Neutrophils % (A) 81 %; Platelet Count 163 k/uL (150-450); RBC 4.35 m/uL (4.30-5.90); RDW 14.2 % (11.5-15.5); WBC 9.8 k/uL (3.8-10.6)
[2022-01-07] MEDS ORDERED: PANTOPRAZOLE 40 MG TABLET PO SCH (07:30)
--- NOTE | 2022-01-07 08:39 | XR ---
EXAMINATION TYPE: XR chest 1V portable DATE OF EXAM: 01/07/2022 COMPARISON: 01/06/2022 HISTORY: Postop TECHNIQUE: Single frontal view of the chest is obtained. FINDINGS: Heart is enlarged and there is a right-sided cardiac lead. Hyperinflation suggests COPD is a diffuse interstitial pattern compatible with chronic interstitial pulmonary fibrosis. Calcified no dules are seen in the upper lungs bilaterally. Diffuse osteopenia. No pleural effusion. No pneumothor ax. Atherosclerotic change aorta. Calcification along the right hemidiaphragmatic surface noted. IMPRESSION: 1. COPD subsegmental areas of consolidation in the right lung base. This is new compared to prior exa m correlate for atelectasis versus early infiltrate. 2. Pleural plaques are suspected correlate for asbestos-related disease.
[2022-01-07] MEDS ORDERED: lisinopriL 20 MG TAB PO SCH (09:00)
[2022-01-07] MEDS ORDERED: MAGNESIUM HYDROXIDE 2,400 MG/10 ML CUP PO PRN (09:00)
[2022-01-07] MEDS ORDERED: MELOXICAM 7.5 MG TAB PO SCH (09:00)
[2022-01-07] MEDS ORDERED: FUROSEMIDE 20 MG TAB PO SCH (09:00)
[2022-01-07] MEDS ORDERED: CLOPIDOGREL 75 MG TAB PO SCH (09:00)
[2022-01-07] MEDS ORDERED: ATORVASTATIN 40 MG TAB PO SCH (09:00)
[2022-01-07] MEDS ORDERED: ASPIRIN 81 MG PO SCH (09:00)
[2022-01-07] MEDS: METOPROLOL TARTRATE 25 MG TAB PO SCH (09:08)
[2022-01-07] MEDS: EZETIMIBE 10 MG TAB PO SCH (09:09)
[2022-01-07 09:18] VITALS: TEMP 98.6
--- NOTE | 2022-01-07 09:42 | P.DS ---
Providers Date of admission: 01/06/22 06:03 Expected date of discharge: 01/07/22 Attending physician: David Morales DO Consults: 01/04/22 13:47 Consult to Anesthesia Routine Consulting Provider: Anesthesia,Services Consult Reason/Comments: Cardiac Surgery Pre-Op 01/06/22 09:44 Consult Physician Routine Consulting Provider: Tiny Campos Consult Reason/Comments: Pedorthist Consult: post cardiac surgery Do you want consulting provider notified?: Yes Consult Physician Routine Consulting Provider: Wesley Walden Consult Reason/Comments: [employer] Specialist Consult: post cardiac surgery Do you want consulting provider notified?: Yes Primary care physician: Jacob Solano MD Hospital Course: MEDICAL HISTORY: 1. Calcified aortic valve with severe symptomatic aortic valve stenosis 2. History of hypertension 3. History of hyperlipidemia 4. History of chronic systolic heart failure 5. Previous tobacco dependence 6. Restless leg syndrome PROCEDURE: 1. Percutaneous aortic valve implantation using a 29 mm Core Valve Evolute-Pro Plus 2. Transesophageal echocardiography performed by anesthesia 3. Ultrasound-guided access and repair of right femoral artery access site by Perclose closure device 4. Placement of temporary pacemaker wire 5. Aortic root angiography 6. Post TAVR balloon valvuloplasty with a 26 mm Z-Med balloon HISTORY OF PRESENT ILLNESS: This is a 76-year-old gentleman who follows on an outpatient basis with Dr. Jacob Solano for primary care and Dr. Oliveira for cardiology. He has a known history of severe aortic stenosis and has been symptomatic with progressive exertional dyspnea as well as extreme fatigue. He had been referred to structural heart clinic for evaluation for transcatheter aortic valve replacement after heart catheterization and transesophageal echocardiogram were completed. Echocardiography demonstrated systolic function with EF 45-50%, aortic valve area 0.7 cm with a peak/mean gradient 64/34 mmHg. Heart catheterization showed mild nonobstructive disease. After workup was completed STS risk score was calculated along with incremental risk and the patient was felt to be high risk for surgical aortic valve replacement, therefore transcatheter aortic valve replacement was recommended. The usual course of TAVR was discussed in detail the patient, risks and benefits were reviewed, shared decision making between cardiology, surgery, and the patient/family took place, and the patient consented to proceed with the procedure. HOSPITAL COURSE: The patient was brought to the hospital on 01/06/22, was taken to the extended stay area, prepared in the usual fashion, and subsequently taken to the cardiac catheterization laboratory where Dr. Morales and Dr. Walden completed TAVR procedure under general anesthesia with fluoroscopy and МАРИНА. The patient did have a transient episode of third degree heart block after anesthesia induction which resolved quickly. The valve was deployed under rapid ventricular pacing and proceeded without event. At the end of the procedure there was a peak/mean gradient 7/2 mmHg, hemodynamics were felt to be acceptable, and there was mild to moderate perivalvular leak. Upon completion of the procedure the patient was extubated and was transferred to the cardiovascular intensive care unit where he was recovered and monitored hemodynamically. His oxygen was titrated down, he was tolerating oral diet, his pain was controlled, follow-up TTE demonstrated no increase in his perivalvular leak which was felt to be acceptable, and he was ready to be discharged to home on postoperative day #1. He received written and verbal instruction regarding his medications, activity restrictions, signs and symptoms requiring physician notification, and follow-up appointments. Patient Condition at Discharge: Stable Plan - Discharge Summary Discharge Rx Participant: Yes New Discharge Prescriptions: New Acetaminophen Tab [Tylenol] 650 mg PO Q4HR PRN tab PRN Reason: Fever And/ Or Mild Pain (1-3) Clopidogrel [Plavix] 75 mg PO DAILY #30 tab Continue rOPINIRole HCL [Requip] 8 mg PO HS modafiniL [Provigil] 200 mg PO DAILY lisinopriL [Zestril] 20 mg PO DAILY Metoprolol Tartrate [Lopressor] 25 mg PO BID Meloxicam [Mobic] 15 mg PO DAILY Aspirin EC [Ecotrin Low Dose] 81 mg PO DAILY Lansoprazole 30 mg PO DAILY HYDROcodone/APAP 10-325MG [[place] 10-325] 1 tab PO QID PRN PRN Reason: Pain Gabapentin [Neurontin] 400 mg PO QID PRN PRN Reason: Pain Pramipexole [Mirapex] 0.5 mg PO HS Furosemide [Lasix] 20 mg PO DAILY Ezetimibe [Zetia] 10 mg PO DAILY Discharge Medication List Aspirin EC [Ecotrin Low Dose] 81 mg PO DAILY 11/02/21 [History] Ezetimibe [Zetia] 10 mg PO DAILY 11/02/21 [History] Furosemide [Lasix] 20 mg PO DAILY 11/02/21 [History] Gabapentin [Neurontin] 400 mg PO QID PRN 11/02/21 [History] HYDROcodone/APAP 10-325MG [[place] 10-325] 1 tab PO QID PRN 11/02/21 [History] Lansoprazole 30 mg PO DAILY 11/02/21 [History] Meloxicam [Mobic] 15 mg PO DAILY 11/02/21 [History] Metoprolol Tartrate [Lopressor] 25 mg PO BID 11/02/21 [History] lisinopriL [Zestril] 20 mg PO DAILY 11/02/21 [History] modafiniL [Provigil] 200 mg PO DAILY 11/02/21 [History] rOPINIRole HCL [Requip] 8 mg PO HS 11/02/21 [History] Pramipexole [Mirapex] 0.5 mg PO HS 11/17/21 [History] Acetaminophen Tab [Tylenol] 650 mg PO Q4HR PRN tab 01/07/22 [Rx] Clopidogrel [Plavix] 75 mg PO DAILY #30 tab 01/07/22 [Rx] Follow up Appointment(s)/Referral(s): Phoenix Oliveira MD [STAFF PHYSICIAN] - 01/11/22 3:45 pm (Your appointment 01/11/22 is for a groin check with Dr. Oliveira at the [facility]. You also have a 30 day post TAVR echo at the main office on [address] [place] [address] 03/12/22 @ 7 am.) Clinic,Structural Heart [NON-STAFF] - 03/12/22 8:00 am (Come to the Structural Heart Clinic right after your 30 day post TAVR echo) Jacob Solano MD [Primary Care Provider] - As Needed Activity/Diet/Wound Care/Special Instructions: DISCHARGE INSTRUCTIONS: 1. No driving for 1 week, or until physician gives their ok. 2. No lifting, pushing, or pulling more than 5-10 pounds for 1 week. 3. Hold both groins when you cough or sneeze for the next 2 weeks. Bruising is common, but report increased swelling, pain or fever >101F 4. Shower daily. No pool, hot tub, or bathtub for 1 week 5. No powders, lotions, ointments on incisions. 6. No straining, including for bowel movements. Use stool softner if necessary 7. Stairs are not an issue. Go slowly, using handrail and take 1 step at a time. Ambulate several times daily 8. Continue pain control per as needed orders. 9. Take only the medications listed on your discharge form 10. Eat low salt (limited to 2 grams or 2000 milligrams) daily, avoid adding salt, avoid canned/processed foods 11. Take your weight daily in the morning and record, bring with you to your follow up appointments 12. Keep all follow up appointments. You will need a valve clinic appointment at 30 days and 1 year post procedure for follow up 13. You have been referred to and are expected to begin Cardiac Rehab in approximately 4 weeks. For any questions or concerns please call your valve coordinators: Estrellita or Angel @ Discharge Disposition: HOME SELF-CARE
[2022-01-07 10:03] VITALS: BP 120/61
--- NOTE | 2022-01-07 10:16 | P.PN ---
Subjective Progress Note Date: 01/07/22 01/07/2022, the patient is postop day #1. Doing extremely well. No neurological deficits. No cardiac arrhythmias. The pacemaker has been removed and the patient's cardiac rhythm is sinus. Hemodynamically stable. Labs from today shows a hemoglobin of 12.4 with a white cell count of 9.8. BUN is at 20 with a creatinine of 0.7. Chest x-ray postop was noted with no acute abnormalities and the echocardiogram was obtained today regarding the bioprosthetic valve positioning. He is sitting up on a chair. Tolerating diet. Using incentive spirometer. No issues whatsoever. Objective - Vital Signs Vital signs: Vital Signs Temp 98.6 F 01/07/22 09:00 Pulse 58 L 01/07/22 10:00 Resp 25 H 01/07/22 10:00 BP 120/61 01/07/22 10:00 Pulse Ox 95 01/07/22 10:00 FiO2 Intake & Output 01/06/22 01/07/22 01/07/22 18:59 06:59 18:59 Intake Total 810 300 200 Output Total 645 1850 450 Balance 165 -1550 -250 Weight 75.1 kg 76.2 kg Intake: IV 400 Intake, IV Titration 410 300 Amount Lactated Ringers 1,000 ml 10 @ 10 mls/hr IV .Q24H JENNY Rx#:[id number] Lactated Ringers 1,000 ml 400 300 @ 50 mls/hr IV .Q20H JENNY Rx#:[id number] Oral 200 Output: Urine 645 1850 450 Other: Voiding Method Urinal Urinal Urinal ABP, PAP, CO, CI - Last Documented Arterial Blood Pressure 134/56 - Exam Gen. appearance the patient is calm and comfortable currently on room air oxygen Head exam was generally normal. There was no scleral icterus or corneal arcus. Mucous membranes were moist. Neck was supple and without jugular venous distension, thyromegaly, or carotid bruits. Carotids were easily palpable bilaterally. There was no adenopathy. The patient has a right subclavian transvenous pacemaker catheter for now Lungs were clear to auscultation and percussion, and with normal diaphragmatic excursion. No wheezes or rales were noted. Cardiac exam revealed the PMI to be normally situated and sized. The rhythm was regular and no extrasystoles were noted during several minutes of auscultation. The first and second heart sounds were normal and physiologic splitting of the second heart sound was noted. There were no murmurs, rubs, clicks, or gallops. Abdominal exam revealed normal bowel sounds. The abdomen was soft, non-tender, and without masses, organomegaly, or appreciable enlargement of the abdominal aorta. Examination of the extremities revealed easily palpable radial, femoral and pedal pulses. There was no cyanosis, clubbing or edema. Examination of the skin revealed no evidence of significant rashes, suspicious appearing nevi or other concerning lesions. Neurologically, the patient is awake and alert and the patient does not have any focal neurological deficit. Cranial nerves are essentially intact. - Labs CBC & Chem 7: 01/07/22 03:28 01/07/22 03:28 Labs: Abnormal Lab Results - Last 24 Hours (Table) 01/06/22 01/06/22 01/07/22 Range/Units 10:45 10:45 03:28 RBC 4.01 L (4.30-5.90) m/uL Hgb 12.0 L 12.4 L (13.0-17.5) gm/dL Hct 38.5 L (39.0-53.0) % MCHC 30.3 L (31.0-37.0) g/dL Neutrophils # 7.9 H (1.3-7.7) k/uL Lymphocytes # 0.9 L 0.9 L (1.0-4.8) k/uL Chloride 108 H (98-107) mmol/L BUN 26 H (9-20) mg/dL Glucose 119 H (74-99) mg/dL Calcium 8.0 L (8.4-10.2) mg/dL Total Protein 5.9 L (6.3-8.2) g/dL Albumin 3.2 L (3.5-5.0) g/dL 01/07/22 Range/Units 03:28 RBC (4.30-5.90) m/uL Hgb (13.0-17.5) gm/dL Hct (39.0-53.0) % MCHC (31.0-37.0) g/dL Neutrophils # (1.3-7.7) k/uL Lymphocytes # (1.0-4.8) k/uL Chloride (98-107) mmol/L BUN (9-20) mg/dL Glucose 105 H (74-99) mg/dL Calcium (8.4-10.2) mg/dL Total Protein (6.3-8.2) g/dL Albumin (3.5-5.0) g/dL Assessment and Plan Plan: Severe Aortic stenosis, post TAVR , postop day #1. Hemodynamically stable. No complications, transvenous pacemaker has been removed. Surgical wound sites are clean. He has adequate pulses in all 4 extremities. No neurological deficits. No cardiac arrhythmias. Mild coronary artery disease, please refer to the preop cardiac catheterization Hypertension Hyperlipidemia Mild systolic heart failure with an ejection fraction 40-45% severe pulmonary hypertension preoperatively History of esophageal stricture with issues related to GE reflux Restless leg syndrome Osteoarthritis Hyperlipidemia Plan Awaiting final echocardiogram report Discharge home today if cleared by cardiothoracic and cardiac team.
--- NOTE | 2022-01-07 10:53 | CA ---
Transthoracic Echo Report Name: Armando Sung Age: 76 Gender: M : 1945 Exam Date: 01/07/2022 08:34 Exam Location: [facility] Ht (in): 65 Wt (lb): 165 Ordering Physician: Estrellita Rosales Attending/Referring Phys: [id number], Connie Casing Machine Operator Melodie Gay RDCS Procedure CPT: Indications: post TAVR Cardiac Hx: Technical Quality: Good Contrast 1: Total Dose (mL): Contrast 2: N/A Total Dose (mL): MEASUREMENTS (Male / Female) Normal Values 2D ECHO LV Diastolic Diameter PLAX 5.8 cm 4.2 - 5.9 / 3.9 - 5.3 cm LV Systolic Diameter PLAX 4.5 cm IVS Diastolic Thickness 1.1 cm 0.6 - 1.0 / 0.6 - 0.9 cm LVPW Diastolic Thickness 1.2 cm 0.6 - 1.0 / 0.6 - 0.9 cm LV Relative Wall Thickness 0.4 RV Internal Dim ED PLAX 2.6 cm LVOT Diameter 2.0 cm LA Systolic Diameter LX 5.4 cm 3.0 - 4.0 / 2.7 - 3.8 cm LA Volume 90.6 cm??? 18 - 58 / 22 - 52 cm??? M-MODE Aortic Root Diameter MM 2.7 cm LA Systolic Diameter MM 4.8 cm LA Ao Ratio MM 1.8 MV E Point Septal Separation 1.6 cm DOPPLER AV Peak Velocity 272.8 cm/s AV Peak Gradient 29.8 mmHg AV Mean Velocity 178.6 cm/s AV Mean Gradient 14.7 mmHg AV Velocity Time Integral 51.3 cm LVOT Peak Velocity 90.5 cm/s LVOT Peak Gradient 3.3 mmHg AV Area Cont Eq pk 1.1 cm??? MV Area PHT 2.9 cm??? Mitral E Point Velocity 70.0 cm/s Mitral A Point Velocity 111.0 cm/s Mitral E to A Ratio 0.6 MV Deceleration Time 265.8 ms MV E' Velocity 4.4 cm/s Mitral E to MV E' Ratio 15.9 TR Peak Velocity 294.0 cm/s TR Peak Gradient 34.6 mmHg Right Ventricular Systolic Press 38.4 mmHg FINDINGS Left Ventricle Left ventricular ejection fraction is estimated at 50-55%. Right Ventricle Normal right ventricular size and function. Mild pulmonary hypertension. Right Atrium Normal right atrial size. Left Atrium Severely increased left atrial diameter. Severely increased left atrial volume. Mildly increased left atrial area. Mitral Valve Mitral valve thickened. Mild mitral regurgitation. Aortic Valve bioprosthetic aortic valve with a peak velocity of 272.8, peak gradient 29.8 mmHg, mean gradient 14.7 mmHg, and estimated aortic valve area of 1.1 cm???. Moderate paravalvular aortic regurgitation. Tricuspid Valve Structurally normal tricuspid valve. Pulmonic Valve Pulmonic valve not well visualized. Pericardium Normal pericardium. Aorta Normal size aortic root and proximal ascending aorta. CONCLUSIONS #1. Normal left ventricular size and function. #2. Left atrial enlargement, moderate to severe degree. #3. Mitral valve shows thickening and calcification with mild regurgitation. #4. Bioprosthetic valve, showing a peak gradient of 29 and mean of 14. There is moderate paravalvular aortic regurgitation. Previewed by: Dr. Valeriano Campoverde MD (Electronically Signed) Final Date: 07 January 2022 10:52
[2022-01-07 11:07] VITALS: PULSE 63
[2022-01-07 11:08] VITALS: RESP 21
[2022-01-07] MEDS ORDERED: SENNOSIDES-DOCUSATE SODIUM 1 EACH TAB PO SCH (21:00)
== END 2022-01-07 12:15 | disposition home or self-care (01) | DRG 267 ==
LOC: 2ORMAIN 06:03 → MERGE 08:00 → 2SICU 09:27
PROVIDERS: ADMIT Internal Medicine; ATTEND Internal Medicine
PROC: B24BZZ4 Ultrasonography of Heart with Aorta, Transesophageal (ICD-10-PCS; 2022-01-06)
PROC: 02HK3JZ Insertion of Pacemaker Lead into Right Ventricle, Percutaneous Approach (ICD-10-PCS; principal; 2022-01-06 08:00)
PROC: 02RF38Z Replacement of Aortic Valve with Zooplastic Tissue, Percutaneous Approach (ICD-10-PCS; principal; 2022-01-06 08:00)
PROC: 5A1223Z Performance of Cardiac Pacing, Continuous (ICD-10-PCS; principal; 2022-01-06 08:00)
PROC: B3101ZZ Fluoroscopy of Thoracic Aorta using Low Osmolar Contrast (ICD-10-PCS; 2022-01-06 08:00)
DX: I08.0 Rheumatic disorders of both mitral and aortic valves (principal); I50.22 Chronic systolic (congestive) heart failure; I97.790 Other intraoperative cardiac functional disturbances during cardiac surgery; I44.2 Atrioventricular block, complete; I27.20 Pulmonary hypertension, unspecified; I11.0 Hypertensive heart disease with heart failure; Z00.6 Encounter for examination for normal comparison and control in clinical research program; E78.5 Hyperlipidemia, unspecified; R00.1 Bradycardia, unspecified; I25.10 Atherosclerotic heart disease of native coronary artery without angina pectoris; I25.84 Coronary atherosclerosis due to calcified coronary lesion; G25.81 Restless legs syndrome; K21.9 Gastro-esophageal reflux disease without esophagitis; G89.29 Other chronic pain; M54.9 Dorsalgia, unspecified; Z79.1 Long term (current) use of non-steroidal anti-inflammatories (NSAID); Z79.82 Long term (current) use of aspirin; Z79.899 Other long term (current) drug therapy; M19.90 Unspecified osteoarthritis, unspecified site; Z87.891 Personal history of nicotine dependence; Z87.311 Personal history of (healed) other pathological fracture
CPT/HCPCS: 33210; 33361; 71045; 80053; 82330; 83735; 85025; 85610; 85730; 86850; 86900; 86901; 93306; 93312; 93320; 93325

== ENCOUNTER 2022-01-24 11:36 | Inpatient (IN) | payer MEDICARE ==
[2022-01-24 12:17] LABS: HCT 40.3 % (39.0-53.0); HGB 12.9 gm/dL (13.0-17.5); MCH 30.2 pg (25.0-35.0); MCV 94.4 fL (80.0-100.0); Mean Platelet Volume 7.2; Platelet Count 156 k/uL (150-450); RBC 4.27 m/uL (4.30-5.90); RDW 14.4 % (11.5-15.5); WBC 3.1 k/uL (3.8-10.6)
[2022-01-24 12:30] LABS: African American GFR (CKD) >90 (>60 ml/min/1.73 sqM); Anion Gap 7 mmol/L; Blood Urea Nitrogen 44 mg/dL (9-20); Calcium 8.1 mg/dL (8.4-10.2); Carbon Dioxide 21 mmol/L (22-30); Chloride 111 mmol/L (98-107); Glucose 142 mg/dL (74-99); Magnesium 1.8 mg/dL (1.6-2.3); Non-African American GFR(CKD) 81 (>60 ml/min/1.73 sqM); Potassium 3.3 mmol/L (3.5-5.1); Sodium 139 mmol/L (137-145)
[2022-01-24 12:46] LABS: Band Neutrophils % 5 %; Lymphocytes # (M) 0.25 k/uL (1.0-4.8); Monocytes # (M) 0.22 k/uL (0-1.0); Neutrophils % (M) 80 %; Nucleated Red Blood Cells 0 /100 WBC (0-0); RBC Morphology Normal; Total Cells Counted 100
[2022-01-24] MEDS ORDERED: POTASSIUM CHLORIDE ER 20 MEQ TAB.ER PO STA (12:58)
[2022-01-24] MEDS ORDERED: VANCOMYCIN IV PER PHARMACY 1 EACH MISC MISCELLANE PRN (13:01)
[2022-01-24] MEDS ORDERED: CEFEPIME 2 GM in SODIUM CHLORIDE 0.9% 100 ML IVPB STA (13:05)
[2022-01-24] MEDS ORDERED: VANCOMYCIN 1,250 MG in SODIUM CHLORIDE 0.9% 250 ML IVPB STA (13:06)
[2022-01-24] MEDS ORDERED: NALOXONE 0.4 MG/ML 1 ML VIAL IV PRN ×2 (13:13→16:01)
--- NOTE | 2022-01-24 13:37 | ED ---
General Adult HPI - General Chief complaint: Shortness of Breath Stated complaint: Pneumonia Time Seen by Provider: 01/24/22 11:49 Source: patient, EMS, RN notes reviewed, old records reviewed Mode of arrival: EMS Limitations: no limitations - History of Present Illness Initial comments: Patient is a 76-year-old male who was transferred from [facility] for right- sided pneumonia. He is a history of recent Taver done by Dr. Walden earlier this month, heart failure, hypertension, GERD. Patient awoke yesterday and has been having intermittent coughing over the last few days but awoke this morning complaining of worsening shortness of breath. He was found to be hypoxic on presentation outside ER. Was started on BiPAP. Patient's respiratory status improved. He remained hemodynamically throughout his stay there. Was started on broad-spectrum antibiotics for sepsis, with the findings on chest x-ray associated with an initial tachycardia as well as leukopenia meeting Sirs criteria. Was transferred here for further evaluation. Was taken off of BiPAP prior to arrival and is feeling improved. Other significant laboratory studies at the outside facility including lactic acid of 2.6, negative troponin. - Related Data Home Medications Medication Instructions Recorded Confirmed Aspirin EC [Ecotrin Low Dose] 81 mg PO DAILY 11/02/21 01/24/22 Ezetimibe [Zetia] 10 mg PO DAILY 11/02/21 01/24/22 Furosemide [Lasix] 20 mg PO DAILY 11/02/21 01/24/22 Gabapentin [Neurontin] 400 mg PO QID PRN 11/02/21 01/24/22 HYDROcodone/APAP 10-325MG [[place] 1 tab PO QID PRN 11/02/21 01/24/22 10-325] Lansoprazole 30 mg PO DAILY 11/02/21 01/24/22 Meloxicam [Mobic] 15 mg PO DAILY 11/02/21 01/24/22 Metoprolol Tartrate [Lopressor] 25 mg PO BID 11/02/21 01/24/22 lisinopriL [Zestril] 20 mg PO DAILY 11/02/21 01/24/22 modafiniL [Provigil] 200 mg PO DAILY 11/02/21 01/24/22 rOPINIRole HCL [Requip] 8 mg PO HS 11/02/21 01/24/22 Pramipexole [Mirapex] 0.5 mg PO HS 11/17/21 01/24/22 Previous Rx's Medication Instructions Recorded Acetaminophen Tab [Tylenol] 650 mg PO Q4HR PRN tab 01/07/22 Clopidogrel [Plavix] 75 mg PO DAILY #30 tab 01/07/22 Allergies Allergy/AdvReac Type Severity Reaction Status Date / Time No Known Allergies Allergy Verified 01/24/22 11:46 Review of Systems ROS Statement: Those systems with pertinent positive or pertinent negative responses have been documented in the HPI. Review of Systems: CONST: Denies fever EYES: Denies blurry vision ENT: Endorses nasal congestion C/V: Denies Chest pain RESP: Endorses shortness of breath GI: Denies abdominal pain : Denies dysuria SKIN: Denies rash. MSK: Denies joint pain. NEURO: Denies headache ROS Other: All systems not noted in ROS Statement are negative. Past Medical History Past Medical History: Heart Failure, GERD/Reflux, Hyperlipidemia, Hypertension, Musculoskeletal Disorder, Osteoarthritis (OA) Additional Past Medical History / Comment(s): esophageal constriction in the past, aortic valve issue, RLS, past hx. of compression fx. in back after a fall, chronic back pain, SOB w/exertion but improved recently History of Any Multi-Drug Resistant Organisms: None Reported Past Surgical History: Heart Catheterization Additional Past Surgical History / Comment(s): colonoscopy, EGD, МАРИНА, heart valve replacement Past Anesthesia/Blood Transfusion Reactions: No Reported Reaction Past Psychological History: No Psychological Hx Reported Smoking Status: Former smoker Past Alcohol Use History: None Reported Past Drug Use History: None Reported - Past Family History Mother Family Medical History: Hypertension Father Family Medical History: Hypertension General Exam - General Exam Comments Initial Comments: General: Appears in no acute distress. HEAD: Normal with no signs of head trauma. EYES: PERRLA, EOMI, conjunctiva normal, no discharge. ENT: Hearing grossly intact, normal oropharynx. Rhinorrhea. RESPIRATORY: Clear breath sounds bilaterally. No wheezes, rales, or rhonchi. Rhonchi over the right lung. Saturating well on 4 L nasal cannula. C/V: Regular rate and rhythm. S1 and S2 auscultated, no edema, peripheral pulses 2+ and intact throughout ABD: Abd is soft, nontender, nondistended EXT: Normal range of motion, no obvious deformity SKIN: No rashes or lesions observed on exposed skin. NEURO: Alert and oriented 4. No focal deficits. Limitations: no limitations Course Vital Signs 01/24/22 01/24/22 11:38 15:24 Temperature 99.1 F Pulse Rate 77 80 Respiratory 18 18 Rate Blood Pressure 102/66 97/54 O2 Sat by Pulse 98 95 Oximetry Medical Decision Making - Medical Decision Making Based on the patient's presentation and physical exam, does appear he is having right-sided pneumonia. I reviewed the patient's chest x-ray which was uploaded into our system. I saw reviewed the labs at the outside facility. We will repeat labs here and admitted him to use the stepdown floor. I will consult his CT surgeon, and spoke with Dr. Walden over the phone he was in agreement this plan. We reviewed his updated labs. Cardiology was also consulted. Spoke with Dr. Shah over the phone who was in agreement with plan, including understanding that there was an elevated troponin with no active chest pain. Patient was in agreement this plan. He is hemodynamically stable at this time. We will continue the vancomycin and cefepime started outside facility. We will re-obtain blood cultures in addition. They were in agreement this plan. Repeat EKG shows no signs of acute ischemia. Laboratory studies are remarkable for redemonstration of a leukopenia at 3.1. Patient is hypokalemic at 3.3 which was replenished. Lactic acid is elevated at 2.6. Troponin is elevated 0.105. BNP is slightly elevated to 2000.We will continue treatment for sepsis with broad-spectrum antibiotics but we will monitor the patient's volume intake. He will not meet the 30 mL per EKG fluid requirement because of his history of heart failure. We'll continue a monitor and assess need for IV fluids. I discussed the findings with the patient. He remains hemodynamically stable. I discussed the findings with cardiology as well. There were any agreement trending the troponin. No need for heparin at this time as he is asymptomatic otherwise. Could be related to his recent TAVR or pneumonia. Patient will be admitted to stepdown floor. Patient was in agreement this plan. I spoke with the admitting physician, Dr. Tomas who was in agreement with this plan. - Lab Data Result diagrams: 01/24/22 12:05 01/24/22 12:05 Lab Results 01/24/22 01/24/2201/24/22 Range/Units 12:05 12:05 12:05 WBC 3.1 L (3.8-10.6) k/uL RBC 4.27 L (4.30-5.90) m/uL Hgb 12.9 L (13.0-17.5) gm/dL Hct 40.3 (39.0-53.0) % MCV 94.4 (80.0-100.0) fL MCH 30.2 (25.0-35.0) pg MCHC 32.0 (31.0-37.0) g/dL RDW 14.4 (11.5-15.5) % Plt Count 156 (150-450) k/uL MPV 7.2 Neutrophils % (Manual) 80 % Band Neuts % (Manual) 5 % Lymphocytes % (Manual) 8 % Monocytes % (Manual) 7 % Neutrophils # (Manual) 2.60 (1.3-7.7) k/uL Lymphocytes # (Manual) 0.25 L (1.0-4.8) k/uL Monocytes # (Manual) 0.22 (0-1.0) k/uL Nucleated RBCs 0 (0-0) /100 WBC Manual Slide Review Performed RBC Morphology Normal Sodium 139 (137-145) mmol/L Potassium 3.3 L (3.5-5.1) mmol/L Chloride 111 H (98-107) mmol/L Carbon Dioxide 21 L (22-30) mmol/L Anion Gap 7 mmol/L BUN 44 H (9-20) mg/dL Creatinine 0.91 (0.66-1.25) mg/dL Est GFR (CKD-EPI)AfAm >90 (>60 ml/min/1.73 sqM) Est GFR (CKD-EPI)NonAf 81 (>60 ml/min/1.73 sqM) Glucose 142 H (74-99) mg/dL Lactic Ac Sepsis Rflx Plasma Lactic Acid Krishna (0.7-2.0) mmol/L Calcium 8.1 L (8.4-10.2) mg/dL Magnesium 1.8 (1.6-2.3) mg/dL Troponin I 0.105 H* (0.000-0.034) ng/mL NT-Pro-B Natriuret Pep pg/mL 0601/24/22 01/24/22 Range/Units 12:05 12:05 12:33 WBC (3.8-10.6) k/uL RBC (4.30-5.90) m/uL Hgb (13.0-17.5) gm/dL Hct (39.0-53.0) % MCV (80.0-100.0) fL MCH (25.0-35.0) pg MCHC (31.0-37.0) g/dL RDW (11.5-15.5) % Plt Count (150-450) k/uL MPV Neutrophils % (Manual) % Band Neuts % (Manual) % Lymphocytes % (Manual) % Monocytes % (Manual) % Neutrophils # (Manual) (1.3-7.7) k/uL Lymphocytes # (Manual) (1.0-4.8) k/uL Monocytes # (Manual) (0-1.0) k/uL Nucleated RBCs (0-0) /100 WBC Manual Slide Review RBC Morphology Sodium (137-145) mmol/L Potassium (3.5-5.1) mmol/L Chloride (98-107) mmol/L Carbon Dioxide (22-30) mmol/L Anion Gap mmol/L BUN (9-20) mg/dL Creatinine (0.66-1.25) mg/dL Est GFR (CKD-EPI)AfAm (>60 ml/min/1.73 sqM) Est GFR (CKD-EPI)NonAf (>60 ml/min/1.73 sqM) Glucose (74-99) mg/dL Lactic Ac Sepsis Rflx Y Plasma Lactic Acid Krishna 2.6 H* (0.7-2.0) mmol/L Calcium (8.4-10.2) mg/dL Magnesium (1.6-2.3) mg/dL Troponin I (0.000-0.034) ng/mL NT-Pro-B Natriuret Pep 2070 pg/mL - EKG Data -: EKG Interpreted by Me EKG Comments: 12-lead Electrocardiogram Interpretation Note EKG was reviewed and interpreted by myself. 12-lead ECG performed at 1156 is interpreted by me as revealing normal sinus rhythm at a rate of 82 beats per minute. [place] is normal. CO Intervals 164 ms, QRS duration is 105 ms, QTc is 396 ms.. There were no ST or T wave abnormalities to suggest myocardial ischemia or injury. R wave progression across the precordium was satisfactory. By my interpretation this EKG is non-diagnostic for acute ischemia. Critical Care Time Critical Care Time: Yes Total Critical Care Time: 35 Critical Care Time: Upon my evaluation, this patient had a high probability of imminent or life- threatening deterioration due to sepsis, recent TAVR, which required my direct attention, intervention, and personal management. I have personally provided 35 minutes of critical care time exclusive of time spent on separately billable procedures. Time includes review of laboratory data , radiology results, discussion with consultants, and monitoring for potential decompensation. Interventions were performed as documented in my note. Disposition Clinical Impression: Sepsis, S/P TAVR (transcatheter aortic valve replacement), Volume overload, Acute respiratory failure with hypoxia Disposition: ADMITTED IP TO THIS HOSP Condition: Stable Time of Disposition: 13:00
[2022-01-24] MEDS ORDERED: SODIUM CHLORIDE 0.9% 500 ML 500 ML IV STA (15:17)
--- NOTE | 2022-01-24 15:55 | P.HPIM ---
History of Present Illness H&P Date: 01/24/22 Chief Complaint: sob 76 y/o male with hx of heart failure, hypertension, GERD, recent TAVR done by Dr. Walden on January 06 presents from [facility] for right-sided pneumonia. Patient awoke today with sob, coughing and feeling cold. He was having shaking chills according to but no fevers. According to he had a post op follow up with DR. Oliveira who noticed irregularities on his EKG so he ordered an exercise stress test which his said he did not tolerate well. No n/v, no diarrhea. No focal weakness or numbness. In the outside ER he was found to be hypoxic in the 70s and had to be started on BiPAP. He was given some aspirin and lasix injection 40mg. EKG showed sinus tachy. Patient's respiratory status improved, he is currently on NC. CXR showed right sided lung opacity, was started on broad-spectrum antibiotics for sepsis/HCAp with cefepime, vanco. Labs showed white count of 2.1, hemoglobin 15.9, hematocrit 49, normal platelet count. Urine 36, creatinine 0.84. Sodium 140, potassium 3.5. UA negative for pyuria. He tested negative for covid as well as influenza BNP. Rest of labs unremarkable at the outside ER. Repeat labs in our ER showed WBC count 3.1, potassium 3.3, bicarb 21, BUN 44, creatinine 0.9, lactic acid 2.6, troponin 0.105, BNP 2070. Review of Systems Complete review of system was performed, pertinent positives per HPI, otherwise negative Past Medical History Past Medical History: Heart Failure, GERD/Reflux, Hyperlipidemia, Hypertension, Musculoskeletal Disorder, Osteoarthritis (OA) Additional Past Medical History / Comment(s): esophageal constriction in the past,RLS, past hx. of compression fx. in back after a fall, chronic back pain, History of Any Multi-Drug Resistant Organisms: None Reported Past Surgical History: Heart Catheterization Additional Past Surgical History / Comment(s): colonoscopy, EGD, МАРИНА, TAVR 01/06/2022 Past Anesthesia/Blood Transfusion Reactions: No Reported Reaction Past Psychological History: No Psychological Hx Reported Smoking Status: Former smoker Past Alcohol Use History: None Reported Additional Past Alcohol Use History / Comment(s): quit smoking 30 yrs. ago, smoked for 20 yrs. <1/2ppd Past Drug Use History: None Reported - Past Family History Mother Family Medical History: Hypertension Father Family Medical History: Hypertension Medications and Allergies Home Medications Medication Instructions Recorded Confirmed Type Aspirin EC [Ecotrin Low Dose] 81 mg PO DAILY 11/02/21 01/24/22 History Ezetimibe [Zetia] 10 mg PO DAILY 11/02/21 01/24/22 History Furosemide [Lasix] 20 mg PO DAILY 11/02/21 01/24/22 History Gabapentin [Neurontin] 400 mg PO QID PRN 11/02/21 01/24/22 History HYDROcodone/APAP 10-325MG [[place] 1 tab PO QID PRN 11/02/21 01/24/22 History 10-325] Lansoprazole 30 mg PO DAILY 11/02/21 01/24/22 History Meloxicam [Mobic] 15 mg PO DAILY 11/02/21 01/24/22 History Metoprolol Tartrate [Lopressor] 25 mg PO BID 11/02/21 01/24/22 History lisinopriL [Zestril] 20 mg PO DAILY 11/02/21 01/24/22 History modafiniL [Provigil] 200 mg PO DAILY 11/02/21 01/24/22 History rOPINIRole HCL [Requip] 8 mg PO HS 11/02/21 01/24/22 History Pramipexole [Mirapex] 0.5 mg PO HS 11/17/21 01/24/22 History Acetaminophen Tab [Tylenol] 650 mg PO Q4HR PRN tab 01/07/22 01/24/22 Rx Clopidogrel [Plavix] 75 mg PO DAILY #30 tab 01/07/22 01/24/22 Rx Allergies Allergy/AdvReac Type Severity Reaction Status Date / Time No Known Allergies Allergy Verified 01/24/22 11:46 Physical Exam Vitals: Vital Signs Temp Pulse Resp BP Pulse Ox 01/24/22 15:24 80 18 97/54 95 01/24/22 11:38 99.1 F 77 18 102/66 98 Intake and Output 01/24/22 01/24/22 01/24/22 06:59 14:59 22:59 Other: Weight 75 kg Constitutional: No acute distress, conversant, pleasant Eyes:Anicteric sclerae, moist conjunctiva, no lid-lag, PERRLA, ENMT: Oropharynx clear, no erythema, exudates Neck: Supple, FROM, no masses, or JVD, No carotid bruits, No thyromegaly Lungs: Right-sided rhonchi and scattered wheezes, Clear to percussion, Normal respiratory effort, no accessory muscle use Cardiovascular: Heart regular in rate and rhythm, No murmurs, gallops, or rubs, No peripheral edema Abdominal: Soft, Nontender, no guarding, rebound or rigidity, Normoactive bowel sounds, No hepatomegaly, No splenomegaly, No palpable mass Skin: Normal temperature, tone, texture, turgor, no induration, No subcutaneous nodules, No rash, lesions, No ulcers Extremities: No digital cyanosis, No clubbing, Pedal pulses intact and symmetrical, Radial pulses intact and symmetrical, No calf tenderness Psychiatric: Alert and oriented to person, place and time, appropriate affect, intact judgement Neuro: Muscles Strength 5/5 in all 4 extremities, Sensation to light touch grossly present throughout, Cranial nerves II-XII grossly intact, no focal sensory deficits Results CBC & Chem 7: 01/24/22 12:05 01/24/22 12:05 Labs: Abnormal Lab Results - Last 24 Hours (Table) 01/24/22 01/24/22 01/24/22 Range/Units 12:05 12:05 12:05 WBC 3.1 L (3.8-10.6) k/uL RBC 4.27 L (4.30-5.90) m/uL Hgb 12.9 L (13.0-17.5) gm/dL Lymphocytes # (Manual) 0.25 L (1.0-4.8) k/uL Potassium 3.3 L (3.5-5.1) mmol/L Chloride 111 H (98-107) mmol/L Carbon Dioxide 21 L (22-30) mmol/L BUN 44 H (9-20) mg/dL Glucose 142 H (74-99) mg/dL Plasma Lactic Acid Krishna (0.7-2.0) mmol/L Calcium 8.1 L (8.4-10.2) mg/dL Troponin I 0.105 H* (0.000-0.034) ng/mL 01/24/22 Range/Units 12:05 WBC (3.8-10.6) k/uL RBC (4.30-5.90) m/uL Hgb (13.0-17.5) gm/dL Lymphocytes # (Manual) (1.0-4.8) k/uL Potassium (3.5-5.1) mmol/L Chloride (98-107) mmol/L Carbon Dioxide (22-30) mmol/L BUN (9-20) mg/dL Glucose (74-99) mg/dL Plasma Lactic Acid Krishna 2.6 H* (0.7-2.0) mmol/L Calcium (8.4-10.2) mg/dL Troponin I (0.000-0.034) ng/mL Assessment and Plan Plan: Acute sepsis secondary to healthcare associated pneumonia O2 to keep sats above 92% Broad-spectrum antibiotics with cefepime and vancomycin Monitor in telemetry Lactic acidosis Monitor for resolution Hypokalemia Replace and follow Elevated troponin Discussed with cardiology as it was negative at the outside facility Will cycled for now S/p TAVR Consult CT surgery Chronic GERD/Reflux, Hyperlipidemia, Hypertension, Osteoarthritis (OA) RLS, Chronic back pain All stable resume meds Admit to inpatient expected length of stay more than 2 midnights.
[2022-01-24] MEDS ORDERED: ACETAMINOPHEN TAB 325 MG TAB PO PRN (15:58)
[2022-01-24] MEDS ORDERED: CEFEPIME 2 GM in SODIUM CHLORIDE 0.9% 100 ML IVPB SCH (18:00)
[2022-01-24] MEDS: HYDROcodone/APAP 10-325MG 1 EACH TAB PO PRN (18:33)
[2022-01-24] MEDS ORDERED: SODIUM CHLORIDE 0.9% 1,000 ML IV ONE (19:00)
[2022-01-24] MEDS: SODIUM CHLORIDE 0.9% 1,000 ML IV SCH (19:04)
[2022-01-24] MEDS: rOPINIRole HCL 4 MG TABLET PO SCH (20:39)
[2022-01-24] MEDS: PRAMIPEXOLE 0.5 MG TAB PO SCH (20:39)
[2022-01-24] MEDS: METOPROLOL TARTRATE 25 MG TAB PO SCH (20:54)
[2022-01-24] MEDS: VANCOMYCIN 1,250 MG in SODIUM CHLORIDE 0.9% 250 ML IVPB SCH (23:29)
[2022-01-25] MEDS: HYDROcodone/APAP 10-325MG 1 EACH TAB PO PRN ×4 (02:01→23:49)
[2022-01-25] MEDS ORDERED: CEFEPIME 2 GM in SODIUM CHLORIDE 0.9% 100 ML IVPB SCH (06:00)
[2022-01-25] MEDS: PANTOPRAZOLE 40 MG TABLET PO SCH (06:04)
[2022-01-25] MEDS: SODIUM CHLORIDE 0.9% 1,000 ML IV SCH ×2 (07:44→15:58)
[2022-01-25] MEDS: CLOPIDOGREL 75 MG TAB PO SCH (07:44)
[2022-01-25] MEDS: FUROSEMIDE 20 MG TAB PO SCH (07:44)
[2022-01-25] MEDS: EZETIMIBE 10 MG TAB PO SCH (07:44)
[2022-01-25] MEDS: ASPIRIN 81 MG PO SCH (07:45)
[2022-01-25] MEDS: METOPROLOL TARTRATE 25 MG TAB PO SCH ×2 (07:45→22:37)
[2022-01-25 07:56] LABS: ALT 14 U/L (4-49); AST 23 U/L (17-59); African American GFR (CKD) >90 (>60 ml/min/1.73 sqM); Albumin 2.8 g/dL (3.5-5.0); Alkaline Phosphatase 43 U/L (38-126); Anion Gap 4 mmol/L; Blood Urea Nitrogen 38 mg/dL (9-20); Calcium 7.7 mg/dL (8.4-10.2); Carbon Dioxide 24 mmol/L (22-30); Chloride 111 mmol/L (98-107); Glucose 81 mg/dL (74-99); Non-African American GFR(CKD) 88 (>60 ml/min/1.73 sqM); Sodium 139 mmol/L (137-145); Total Protein 5.3 g/dL (6.3-8.2)
--- NOTE | 2022-01-25 08:00 | P.CRDCN ---
History of Present Illness Consult date: 01/25/22 History of present illness: History of Present Illness: The patient is a 76-year-old male who underwent TAVR recently and presented with symptoms of progressive dyspnea happening in the last 24 hours with chills and cough. He had no chest discomfort, no dizziness or palpitation. He has mild CAD by cardiac catheterization in October, ejection fraction pre-valve replacement was 45-50%. He is feeling better this morning. He has no peripheral edema, PND or orthopnea. He initially presented to [facility] and subsequently transferred. His troponin are mildly elevated. His chest x-ray is consistent with right lower lobe pneumonia. At that time of induction for valve replacement he had a transient complete heart block that resolved. His coronary risk factors are positive for hypertension and hyperlipidemia, he is nondiabetic. His medication include reticulocyte with, Provigil, lisinopril 20 mg daily, metoprolol 25 mg twice a day, Lasix 20 mg daily, Zetia 10 mg daily, Plavix 75 mg daily, aspirin once a day. Review of Systems: Respiratory: He has recent cough and dyspnea GI: She had nausea and vomiting today. No history of peptic ulcer disease. No recent GI bleed. : No hematuria or dysuria. Nervous System: No stroke or seizure. Physical Examination: 76-year-old male, alert and oriented with no acute distress. Blood pressure 100/51 with a heart rate in the 70s Head: Normocephalic. Eyes: Sclerae nonicteric. Neck: Good carotid upstroke, no bruit, no jugular venous distention. Lungs: Crackles on the right lower base Heart: Regular rate and rhythm, S1-S2, no S3, no rub. Systolic ejection murmur at the base. Abdomen: Soft nontender, positive bowel sounds no organomegaly. Extremities: No edema, intact distal pulses. Labs: BUN 44, creatinine 0.91. Troponin 0.105 and 0.195, 0.304 with NT proBNP 2070. White blood cells 3.1, hemoglobin 12.9. Plasma lactic acid 5.6. EKG sinus mechanism with nonspecific ST-T wave changes Impression: 1. Acute dyspnea with evidence consistent with community-acquired pneumonia 2. Recent TAVR 3. Mild troponin elevation, most likely related to the infection with known mild CAD by cardiac catheterization in October 4. History of hypertension 5. Hyperlipidemia Plan: 1. Obtain an echocardiogram, no evidence of endocarditis by physical examination 2. Continue home medications 3. IV antibiotics per pulmonary service 4. Depending on his progress further recommendations will be made 5. Thank you for this consult we will follow with you Past Medical History Past Medical History: Heart Failure, GERD/Reflux, Hyperlipidemia, Hypertension, Musculoskeletal Disorder, Osteoarthritis (OA) Additional Past Medical History / Comment(s): esophageal constriction in the past, aortic valve issue, RLS, past hx. of compression fx. in back after a fall, chronic back pain, SOB w/exertion but improved recently History of Any Multi-Drug Resistant Organisms: None Reported Past Surgical History: Heart Catheterization Additional Past Surgical History / Comment(s): colonoscopy, EGD, МАРИНА, heart valve replacement Past Anesthesia/Blood Transfusion Reactions: No Reported Reaction Smoking Status: Former smoker - Past Family History Mother Family Medical History: Hypertension Father Family Medical History: Hypertension Medications and Allergies Home Medications Medication Instructions Recorded Confirmed Type Aspirin EC [Ecotrin Low Dose] 81 mg PO DAILY 11/02/21 01/24/22 History Ezetimibe [Zetia] 10 mg PO DAILY 11/02/21 01/24/22 History Furosemide [Lasix] 20 mg PO DAILY 11/02/21 01/24/22 History Gabapentin [Neurontin] 400 mg PO QID PRN 11/02/21 01/24/22 History HYDROcodone/APAP 10-325MG [[place] 1 tab PO QID PRN 11/02/21 01/24/22 History 10-325] Lansoprazole 30 mg PO DAILY 11/02/21 01/24/22 History Meloxicam [Mobic] 15 mg PO DAILY 11/02/21 01/24/22 History Metoprolol Tartrate [Lopressor] 25 mg PO BID 11/02/21 01/24/22 History lisinopriL [Zestril] 20 mg PO DAILY 11/02/21 01/24/22 History modafiniL [Provigil] 200 mg PO DAILY 11/02/21 01/24/22 History rOPINIRole HCL [Requip] 8 mg PO HS 11/02/21 01/24/22 History Pramipexole [Mirapex] 0.5 mg PO HS 11/17/21 01/24/22 History Acetaminophen Tab [Tylenol] 650 mg PO Q4HR PRN tab 01/07/22 01/24/22 Rx Clopidogrel [Plavix] 75 mg PO DAILY #30 tab 01/07/22 01/24/22 Rx Allergies Allergy/AdvReac Type Severity Reaction Status Date / Time No Known Allergies Allergy Verified 01/24/22 11:46 Physical Exam Vitals: Vital Signs Temp Pulse Pulse Resp BP BP BP 01/25/22 04:00 98.5 F 71 18 100/51 01/25/22 02:00 71 20 01/24/22 23:42 98.2 F 71 20 92/57 01/24/22 20:00 98 F 66 20 93/57 87/44 01/24/22 16:02 98.4 F 77 20 94/53 01/24/22 15:24 80 18 97/54 01/24/22 11:38 99.1 F 77 18 102/66 Pulse Ox 01/25/22 04:00 96 01/25/22 02:00 01/24/22 23:42 99 01/24/22 20:00 95 01/24/22 16:02 95 01/24/22 15:24 95 01/24/22 11:38 98 Intake and Output 01/24/22 01/25/22 01/25/22 22:59 06:59 14:59 Intake Total 140 950 Output Total 400 Balance 140 550 Intake: IV 20 Invasive Line 1 10 Invasive Line 2 10 Intake, IV Titration 950 Amount Cefepime 2 gm In Sodium 100 Chloride 0.9% 100 ml @ 25 mls/hr IVPB Q8H [facility] Rx#: [id number] Sodium Chloride 0.9% 1, 600 000 ml @ 75 mls/hr IV . [id number] [facility] Rx#:[id number] Vancomycin 1,250 mg In 250 Sodium Chloride 0.9% 250 ml @ 125 mls/hr IVPB Q12H [facility] Rx#:[id number] Oral 120 Output: Urine 400 Other: Voiding Method Toilet Toilet Urinal Urinal # Voids 1 Weight 75 kg Results 01/24/22 12:05 01/24/22 12:05 Cardiac Enzymes 01/24/22 01/24/22 01/24/22 Range/Units 12:05 14:53 17:45 Troponin I 0.105 H* 0.195 H* 0.304 H* (0.000-0.034) ng/mL CBC 01/24/22 Range/Units 12:05 WBC 3.1 L (3.8-10.6) k/uL RBC 4.27 L (4.30-5.90) m/uL Hgb 12.9 L (13.0-17.5) gm/dL Hct 40.3 (39.0-53.0) % Plt Count 156 (150-450) k/uL Comprehensive Metabolic Panel 01/24/22 Range/Units 12:05 Sodium 139 (137-145) mmol/L Potassium 3.3 L (3.5-5.1) mmol/L Chloride 111 H (98-107) mmol/L Carbon Dioxide 21 L (22-30) mmol/L BUN 44 H (9-20) mg/dL Creatinine 0.91 (0.66-1.25) mg/dL Glucose 142 H (74-99) mg/dL Calcium 8.1 L (8.4-10.2) mg/dL Current Medications Generic Name Dose Route Start Last Admin Trade Name Freq PRN Reason Stop Dose Admin Acetaminophen 650 mg 01/24/22 15:58 Acetaminophen Tab 325 Mg Tab PO Q4HR PRN Fever And/ Or Mild Pain (1-3) Hydrocodone Bitart/Acetaminophen 1 each 01/24/22 15:58 01/25/22 02:01 Hydrocodone/Apap 10-325mg 1 Each Tab PO 1 each QID PRN Administration Pain Aspirin 81 mg 01/25/22 09:00 Aspirin 81 Mg PO DAILY [facility] Clopidogrel Bisulfate 75 mg 01/25/22 09:00 Clopidogrel 75 Mg Tab PO DAILY [facility] Ezetimibe 10 mg 01/25/22 09:00 Ezetimibe 10 Mg Tab PO DAILY JENNY Furosemide 20 mg 01/25/22 09:00 Furosemide 20 Mg Tab PO DAILY JENNY Gabapentin 400 mg 01/24/22 13:33 Gabapentin 400 Mg Cap PO QID PRN Pain Vancomycin HCl 1,250 mg/ 250 mls @ 125 mls/hr 01/25/22 00:00 01/24/22 23:29 Sodium Chloride IVPB 125 mls/hr Q12H JENNY Administration Sodium Chloride 1,000 mls @ 75 mls/hr 01/24/22 19:00 01/24/22 19:04 Saline 0.9% IV 75 mls/hr .[id number] JENNY Administration Cefepime HCl 2 gm/ Sodium 100 mls @ 25 mls/hr 01/25/22 06:00 01/25/22 06:04 Chloride IVPB 25 mls/hr Q12H JENNY Administration Protocol Metoprolol Tartrate 25 mg 01/24/22 21:00 01/24/22 20:54 Metoprolol Tartrate 25 Mg Tab PO Not Given BID JENNY Modafinil 200 mg 01/25/22 09:00 Modafinil 200 Mg Tab PO DAILY [facility]EN[facility] Naloxone HCl 0.2 mg 01/24/22 16:01 Naloxone 0.4 Mg/Ml 1 Ml Vial IV Q2M PRN Opioid Reversal Pantoprazole Sodium 40 mg 01/25/22 07:30 01/25/22 06:04 Pantoprazole 40 Mg Tablet PO 40 mg [id number] JENNY Administration Pramipexole Dihydrochloride 0.5 mg 01/24/22 21:00 01/24/22 20:39 Pramipexole 0.5 Mg Tab PO 0.5 mg HS JENNY Administration Ropinirole HCl 8 mg 01/24/22 21:00 01/24/22 20:39 Ropinirole Hcl 4 Mg Tablet PO 8 mg HS JENNY Administration Intake and Output 01/24/22 01/25/22 01/25/22 22:59 06:59 14:59 Intake Total 140 950 Output Total 400 Balance 140 550 Intake: IV 20 Invasive Line 1 10 Invasive Line 2 10 Intake, IV Titration 950 Amount Cefepime 2 gm In Sodium 100 Chloride 0.9% 100 ml @ 25 mls/hr IVPB Q8H [facility] Rx#: [id number] Sodium Chloride 0.9% 1, 600 000 ml @ 75 mls/hr IV . [id number] [facility] Rx#:[id number] Vancomycin 1,250 mg In 250 Sodium Chloride 0.9% 250 ml @ 125 mls/hr IVPB Q12H [facility] Rx#:[id number] Oral 120 Output: Urine 400 Other: Voiding Method Toilet Toilet Urinal Urinal # Voids 1 Weight 75 kg 01/24/22 12:05 01/24/22 12:05
[2022-01-25 08:23] LABS: Basophils % (A) 0 %; Eosinophils % (A) 0 %; HCT 33.3 % (39.0-53.0); HGB 10.9 gm/dL (13.0-17.5); Hypochromasia Slight; Lymphocytes # (A) 0.5 k/uL (1.0-4.8); Lymphocytes % (A) 6 %; MCH 31.3 pg (25.0-35.0); MCHC 32.8 g/dL (31.0-37.0); MCV 95.5 fL (80.0-100.0); Mean Platelet Volume 7.8; Monocytes # (A) 0.4 k/uL (0-1.0); Monocytes % (A) 5 %; Neutrophils # (A) 7.2 k/uL (1.3-7.7); Neutrophils % (A) 87 %; Platelet Count 111 k/uL (150-450); RBC 3.49 m/uL (4.30-5.90); RDW 14.4 % (11.5-15.5); WBC 8.2 k/uL (3.8-10.6)
--- NOTE | 2022-01-25 08:49 | XR ---
EXAMINATION TYPE: XR chest 1V portable DATE OF EXAM: 01/25/2022 COMPARISON: 01/17/2022 HISTORY: Shortness of breath TECHNIQUE: Single frontal view of the chest is obtained. FINDINGS: 1 cm nodule seen in the left lobe. Could represent pleural plaques. Pulmonary nodules excl uded. Chronic rib deformities are seen and there is an area of ulceration involving the right perihil ar and lower lobe. No sizable pleural effusion. Calcifications along the diaphragmatic surface noted. Arthropathy of the shoulders. No pneumothorax. Osteopenia. Postsurgical changes are seen suggestive of aortic valve surgery. IMPRESSION: 1. Right perihilar infiltrate correlate for pneumonia. Correlate for asbestos-related disease.
--- NOTE | 2022-01-25 08:58 | P.GSCN ---
History of Present Illness Consult date: 01/25/22 Reason for Consult: Recent TAVR Requesting physician: Bernardo Toribio History of present illness: This is a 76-year-old gentleman who follows on an outpatient basis Dr. Jacob Solano for primary care and Dr. Oliveira for cardiology. He has a known history of severe aortic stenosis status post TAVR, hypertension, hyperlipidemia, chronic systolic heart failure, previous tobacco dependence, and restless leg syndrome. He was recently in the hospital at the beginning of December for elective TAVR placement. He was discharged home on postoperative day #1 and has been recovering uneventfully at home until yesterday when he developed shortness of breath, cough with congestion, and chills. Denies fever although states he did not take his temperature. Denies any chest pain or any other aggravating or alleviating symptoms. He presented to [facility] for evaluation and treatment, chest x-ray was completed which was consistent with right sided pneumonia and patient was transferred to [facility] for further management. He was started on IV antibiotics and admitted with consultation placed to cardiology, cardiac risk surgery, and pulmonology. Echocardiogram was ordered as well as blood and sputum cultures. Review of Systems Review of systems was completed and was negative except as noted - Constitutional Reports chills - Respiratory Reports as per HPI, Reports congestion, Reports cough, Reports dyspnea Past Medical History Past Medical History: Heart Failure, GERD/Reflux, Hyperlipidemia, Hypertension, Musculoskeletal Disorder, Osteoarthritis (OA) Additional Past Medical History / Comment(s): esophageal constriction in the past, aortic valve stenosis, RLS, past hx. of compression fx. in back after a fall, chronic back pain, SOB w/exertion but improved recently History of Any Multi-Drug Resistant Organisms: None Reported Past Surgical History: Heart Catheterization Additional Past Surgical History / Comment(s): colonoscopy, EGD, МАРИНА, transcatheter aortic valve replacement completed 01/06/22 Past Anesthesia/Blood Transfusion Reactions: No Reported Reaction Past Psychological History: No Psychological Hx Reported Smoking Status: Former smoker Past Alcohol Use History: None Reported Past Drug Use History: None Reported - Past Family History Mother Family Medical History: Hypertension Father Family Medical History: Hypertension Medications and Allergies Home Medications Medication Instructions Recorded Confirmed Type Aspirin EC [Ecotrin Low Dose] 81 mg PO DAILY 11/02/21 01/24/22 History Ezetimibe [Zetia] 10 mg PO DAILY 11/02/21 01/24/22 History Furosemide [Lasix] 20 mg PO DAILY 11/02/21 01/24/22 History Gabapentin [Neurontin] 400 mg PO QID PRN 11/02/21 01/24/22 History HYDROcodone/APAP 10-325MG [[place] 1 tab PO QID PRN 11/02/21 01/24/22 History 10-325] Lansoprazole 30 mg PO DAILY 11/02/21 01/24/22 History Meloxicam [Mobic] 15 mg PO DAILY 11/02/21 01/24/22 History Metoprolol Tartrate [Lopressor] 25 mg PO BID 11/02/21 01/24/22 History lisinopriL [Zestril] 20 mg PO DAILY 11/02/21 01/24/22 History modafiniL [Provigil] 200 mg PO DAILY 11/02/21 01/24/22 History rOPINIRole HCL [Requip] 8 mg PO HS 11/02/21 01/24/22 History Pramipexole [Mirapex] 0.5 mg PO HS 11/17/21 01/24/22 History Acetaminophen Tab [Tylenol] 650 mg PO Q4HR PRN tab 01/07/22 01/24/22 Rx Clopidogrel [Plavix] 75 mg PO DAILY #30 tab 01/07/22 01/24/22 Rx Allergies Allergy/AdvReac Type Severity Reaction Status Date / Time No Known Allergies Allergy Verified 01/24/22 11:46 Surgical - Exam Vital Signs Temp Pulse Resp BP Pulse Ox 99.1 F 77 18 102/66 98 01/24/22 11:38 01/24/22 11:38 01/24/22 11:38 01/24/22 11:38 01/24/22 11:38 CONSTITUTIONAL: Awake and alert, appears comfortable, cooperative, well- developed, well-nourished, no pain, no acute distress EYES: Pupils equal, round, reactive to light, normal ocular movement ENT: Moist mucous membranes without oral lesions present NECK: No masses, no bruits, trachea midline RESPIRATORY: Lungs sounds coarse bilaterally, diminished in the right base. Respirations even, nonlabored. Currently on 4 L nasal cannula with oxygen saturation 96%. Strong cough. No chest wall deformities. No clubbing or cyanosis present CARDIOVASCULAR: S1, S2 present. Regular rate and rhythm, sinus rhythm on telemetry. Palpable peripheral pulses bilaterally. No edema present. No calf pain or tenderness noted. GASTROINTESTINAL: Abdomen soft, nontender, nondistended without masses or organomegaly noted. There is no rebound or guarding present. Active bowel sounds present 4 quadrants. GENITOURINARY: Deferred INTEGUMENTARY: Skin is warm and dry with evidence of good perfusion. NEUROLOGIC: Cranial nerves II through XII intact, normal coordination, no obvious motor or sensory deficits, speech is normal MUSKULOSKELETAL: Able to move all extremities, strength equal bilaterally, normal posture PSYCHIATRIC: Alert and oriented to person place and time, appropriate affect, intact judgment and insight Results - Labs 01/25/22 06:36 01/25/22 06:36 Abnormal Lab Results - Last 24 Hours (Table) 01/24/22 01/24/22 01/24/22 Range/Units 12:05 12:05 12:05 WBC 3.1 L (3.8-10.6) k/uL RBC 4.27 L (4.30-5.90) m/uL Hgb 12.9 L (13.0-17.5) gm/dL Hct (39.0-53.0) % Plt Count (150-450) k/uL Lymphocytes # (1.0-4.8) k/uL Lymphocytes # (Manual) 0.25 L (1.0-4.8) k/uL D-Dimer (<0.60) mg/L FEU Potassium 3.3 L (3.5-5.1) mmol/L Chloride 111 H (98-107) mmol/L Carbon Dioxide 21 L (22-30) mmol/L BUN 44 H (9-20) mg/dL Glucose 142 H (74-99) mg/dL Plasma Lactic Acid Krishna (0.7-2.0) mmol/L Calcium 8.1 L (8.4-10.2) mg/dL Troponin I 0.105 H* (0.000-0.034) ng/mL Total Protein (6.3-8.2) g/dL Albumin (3.5-5.0) g/dL 01/24/22 01/24/22 01/24/22 Range/Units 12:05 14:53 14:53 WBC (3.8-10.6) k/uL RBC (4.30-5.90) m/uL Hgb (13.0-17.5) gm/dL Hct (39.0-53.0) % Plt Count (150-450) k/uL Lymphocytes # (1.0-4.8) k/uL Lymphocytes # (Manual) (1.0-4.8) k/uL D-Dimer (<0.60) mg/L FEU Potassium (3.5-5.1) mmol/L Chloride (98-107) mmol/L Carbon Dioxide (22-30) mmol/L BUN (9-20) mg/dL Glucose (74-99) mg/dL Plasma Lactic Acid Krishna 2.6 H* 2.2 H* (0.7-2.0) mmol/L Calcium (8.4-10.2) mg/dL Troponin I 0.195 H* (0.000-0.034) ng/mL Total Protein (6.3-8.2) g/dL Albumin (3.5-5.0) g/dL 01/24/22 01/24/22 01/24/22 Range/Units 17:25 17:45 17:45 WBC (3.8-10.6) k/uL RBC (4.30-5.90) m/uL Hgb (13.0-17.5) gm/dL Hct (39.0-53.0) % Plt Count (150-450) k/uL Lymphocytes # (1.0-4.8) k/uL Lymphocytes # (Manual) (1.0-4.8) k/uL D-Dimer 6.14 H (<0.60) mg/L FEU Potassium (3.5-5.1) mmol/L Chloride (98-107) mmol/L Carbon Dioxide (22-30) mmol/L BUN (9-20) mg/dL Glucose (74-99) mg/dL Plasma Lactic Acid Krishna 5.6 H* (0.7-2.0) mmol/L Calcium (8.4-10.2) mg/dL Troponin I 0.304 H* (0.000-0.034) ng/mL Total Protein (6.3-8.2) g/dL Albumin (3.5-5.0) g/dL 01/25/22 01/25/22 Range/Units 06:36 06:36 WBC (3.8-10.6) k/uL RBC 3.49 L (4.30-5.90) m/uL Hgb 10.9 L (13.0-17.5) gm/dL Hct 33.3 L (39.0-53.0) % Plt Count 111 L (150-450) k/uL Lymphocytes # 0.5 L (1.0-4.8) k/uL Lymphocytes # (Manual) (1.0-4.8) k/uL D-Dimer (<0.60) mg/L FEU Potassium (3.5-5.1) mmol/L Chloride 111 H (98-107) mmol/L Carbon Dioxide (22-30) mmol/L BUN 38 H (9-20) mg/dL Glucose (74-99) mg/dL Plasma Lactic Acid Krishna (0.7-2.0) mmol/L Calcium 7.7 L (8.4-10.2) mg/dL Troponin I (0.000-0.034) ng/mL Total Protein 5.3 L (6.3-8.2) g/dL Albumin 2.8 L (3.5-5.0) g/dL Diabetes panel 01/24/22 01/25/22 Range/Units 12:05 06:36 Sodium 139 139 (137-145) mmol/L Potassium 3.3 L 4.0 (3.5-5.1) mmol/L Chloride 111 H 111 H (98-107) mmol/L Carbon Dioxide 21 L 24 (22-30) mmol/L BUN 44 H 38 H (9-20) mg/dL Creatinine 0.91 0.76 (0.66-1.25) mg/dL Glucose 142 H 81 (74-99) mg/dL Calcium 8.1 L 7.7 L (8.4-10.2) mg/dL AST 23 (17-59) U/L ALT 14 (4-49) U/L Alkaline Phosphatase 43 (38-126) U/L Total Protein 5.3 L (6.3-8.2) g/dL Albumin 2.8 L (3.5-5.0) g/dL Calcium panel 01/24/22 01/25/22 Range/Units 12:05 06:36 Calcium 8.1 L 7.7 L (8.4-10.2) mg/dL Albumin 2.8 L (3.5-5.0) g/dL Pituitary panel 01/24/22 01/25/22 Range/Units 12:05 06:36 Sodium 139 139 (137-145) mmol/L Potassium 3.3 L 4.0 (3.5-5.1) mmol/L Chloride 111 H 111 H (98-107) mmol/L Carbon Dioxide 21 L 24 (22-30) mmol/L BUN 44 H 38 H (9-20) mg/dL Creatinine 0.91 0.76 (0.66-1.25) mg/dL Glucose 142 H 81 (74-99) mg/dL Calcium 8.1 L 7.7 L (8.4-10.2) mg/dL Adrenal panel 01/24/22 01/25/22 Range/Units 12:05 06:36 Sodium 139 139 (137-145) mmol/L Potassium 3.3 L 4.0 (3.5-5.1) mmol/L Chloride 111 H 111 H (98-107) mmol/L Carbon Dioxide 21 L 24 (22-30) mmol/L BUN 44 H 38 H (9-20) mg/dL Creatinine 0.91 0.76 (0.66-1.25) mg/dL Glucose 142 H 81 (74-99) mg/dL Calcium 8.1 L 7.7 L (8.4-10.2) mg/dL Total Bilirubin 1.0 (0.2-1.3) mg/dL AST 23 (17-59) U/L ALT 14 (4-49) U/L Alkaline Phosphatase 43 (38-126) U/L Total Protein 5.3 L (6.3-8.2) g/dL Albumin 2.8 L (3.5-5.0) g/dL - Imaging Chest x-ray: image reviewed EKG: image reviewed Assessment and Plan Assessment: 1. Shortness of breath, cough with congestion, chills, x-ray consistent with right-sided community-acquired pneumonia 2. Low WBC with 5% bands on admission, lactic acidosis on admission, resolved 3. Elevated troponins on admission 4. History of severe aortic stenosis status post TAVR 01/06/22 5. History of hypertension 6. History of hyperlipidemia 7. Chronic systolic heart failure, BNP 2070 on admission 8. Previous tobacco dependence 9. Restless leg syndrome Plan: The patient was seen and examined this morning sitting up in bed on the cardiac stepdown unit in no acute distress. Patient is currently on 4 L nasal cannula and oxygenating well. He states he feels quite a bit better since yesterday. Remains on IV antibiotics. Echocardiogram ordered for today. The case will be discussed in detail with Dr. Walden, was discussed with Dr. Walden yesterday by the emergency room physicians. Recommend continuing current home medication regimen. Continue antibiotics per pulmonology recommendations. Incentive spirometry ordered and should be encouraged. Wean O2 as tolerated. Increase activity as tolerated. Continue current medical management per internal medicine, cardiology, pulmonology. Thank you for this consult. Please call us with any further questions. I have personally seen and examined the patient, performed the documentation and the assessment and plan as written. Number of minutes spent on the visit: 30. DANIELA Giang
[2022-01-25] MEDS ORDERED: lisinopriL 20 MG TAB PO SCH (09:00)
[2022-01-25] MEDS: VANCOMYCIN 1,250 MG in SODIUM CHLORIDE 0.9% 250 ML IVPB SCH ×2 (11:00→23:50)
[2022-01-25] MEDS: IPRATROPIUM-ALBUTEROL 3 ML NEB INHALATION SCH ×3 (11:06→19:13)
--- NOTE | 2022-01-25 12:05 | CA ---
Transthoracic Echo Report Name: Armando Sung Age: 76 Gender: M : 1945 Exam Date: 01/25/2022 07:58 Exam Location: [facility] Ht (in): 64 Wt (lb): 165 Ordering Physician: Bernardo Toribio MD Attending/Referring Phys: Radiology Rn Melodie Gay RDCS Procedure CPT: Indications: recent TAVR Cardiac Hx: Pt Echo 01/07/22: For Post TAVR: Limited Echo for pneumonia Technical Quality: Good Contrast 1: N/A Total Dose (mL): Contrast 2: Total Dose (mL): MEASUREMENTS (Male / Female) Normal Values DOPPLER AV Peak Velocity 212.2 cm/s AV Peak Gradient 18.0 mmHg AV Mean Velocity 150.7 cm/s AV Mean Gradient 10.5 mmHg AV Velocity Time Integral 38.9 cm LVOT Peak Velocity 59.8 cm/s LVOT Peak Gradient 1.4 mmHg TR Peak Velocity 306.1 cm/s TR Peak Gradient 37.5 mmHg Right Ventricular Systolic Press 42.5 mmHg FINDINGS Left Ventricle Normal Left ventricular size, mild wall thickness,left ventricular ejection fraction is estimated at 50-55%. Right Ventricle Normal right ventricular size and function. Right Atrium Normal right atrial size. Left Atrium Mild left atrial dilatation. Mitral Valve Structurally normal mitral valve. [id number] mitral regurgitation. Aortic Valve Normally functioning aortic valve without stenosis, trace of AI. with a peak velocity , peak gradient 18 mmHg, mean gradient 10 mmHg. Tricuspid Valve Structurally normal tricuspid valve. Mild tricuspid regurgitation. Pulmonic Valve Pulmonic valve not well visualized. Pericardium Normal pericardium. Aorta Normal size aortic root and proximal ascending aorta. CONCLUSIONS Normal LV systolic function Normally functioning prosthetic valve in aortic position Previewed by: Dr. Tony Moe MD (Electronically Signed) Final Date: 25 January 2022 12:05
--- NOTE | 2022-01-25 13:06 | P.PN ---
Subjective Progress Note Date: 01/25/22 Principal diagnosis: sob Patient is feeling a lot better today compared to when he came in. His shortness of breath is currently minimal. Cough is minimal currently. No fevers or chills. Objective - Vital Signs Vital signs: Vital Signs Temp 98.6 F 01/25/22 11:00 Pulse 75 01/25/22 11:16 Resp 20 01/25/22 11:00 BP 100/52 01/25/22 11:00 Pulse Ox 98 01/25/22 11:00 FiO2 Intake & Output 01/24/22 01/25/22 01/25/22 18:59 06:59 18:59 Intake Total 140 950 200 Output Total 400 Balance 140 550 200 Weight 75 kg Intake: IV 20 Invasive Line 1 10 Invasive Line 2 10 Intake, IV Titration 950 Amount Cefepime 2 gm In Sodium 100 Chloride 0.9% 100 ml @ 25 mls/hr IVPB Q8H [facility] Rx#: [id number] Sodium Chloride 0.9% 1, 600 000 ml @ 75 mls/hr IV . [id number] [facility] Rx#:[id number] Vancomycin 1,250 mg In 250 Sodium Chloride 0.9% 250 ml @ 125 mls/hr IVPB Q12H [facility] Rx#:[id number] Oral 120 200 Output: Urine 400 Other: Voiding Method Toilet Toilet Toilet Urinal Urinal Urinal # Voids 1 - Exam Constitutional: No acute distress, conversant, pleasant Eyes:Anicteric sclerae, moist conjunctiva, no lid-lag, PERRLA, ENMT: Oropharynx clear, no erythema, exudates Neck: Supple, FROM, no masses, or JVD, No carotid bruits, No thyromegaly Lungs: Bilateral wheezing and rhonchi, Normal respiratory effort, no accessory muscle use Cardiovascular: Heart regular in rate and rhythm, No murmurs, gallops, or rubs, No peripheral edema Abdominal: Soft, Nontender, no guarding, rebound or rigidity, Normoactive bowel sounds, No hepatomegaly, No splenomegaly, No palpable mass Skin: Normal temperature, tone, texture, turgor, no induration, No subcutaneous nodules, No rash, lesions, No ulcers Extremities: No digital cyanosis, No clubbing, Pedal pulses intact and symmetrical, Radial pulses intact and symmetrical, No calf tenderness Psychiatric: Alert and oriented to person, place and time, appropriate affect, intact judgement Neuro: Muscles Strength 5/5 in all 4 extremities, Sensation to light touch grossly present throughout, Cranial nerves II-XII grossly intact, no focal sensory deficits - Labs CBC & Chem 7: 01/25/22 06:36 01/25/22 06:36 Labs: Abnormal Lab Results - Last 24 Hours (Table) 01/24/22 01/24/22 01/24/22 Range/Units 12:05 14:53 14:53 RBC (4.30-5.90) m/uL Hgb (13.0-17.5) gm/dL Hct (39.0-53.0) % Plt Count (150-450) k/uL Lymphocytes # (1.0-4.8) k/uL D-Dimer (<0.60) mg/L FEU Chloride (98-107) mmol/L BUN (9-20) mg/dL Plasma Lactic Acid Krishna 2.2 H* (0.7-2.0) mmol/L Calcium (8.4-10.2) mg/dL Troponin I 0.105 H* 0.195 H* (0.000-0.034) ng/mL Total Protein (6.3-8.2) g/dL Albumin (3.5-5.0) g/dL 01/24/22 01/24/22 01/24/22 Range/Units 17:25 17:45 17:45 RBC (4.30-5.90) m/uL Hgb (13.0-17.5) gm/dL Hct (39.0-53.0) % Plt Count (150-450) k/uL Lymphocytes # (1.0-4.8) k/uL D-Dimer 6.14 H (<0.60) mg/L FEU Chloride (98-107) mmol/L BUN (9-20) mg/dL Plasma Lactic Acid Krishna 5.6 H* (0.7-2.0) mmol/L Calcium (8.4-10.2) mg/dL Troponin I 0.304 H* (0.000-0.034) ng/mL Total Protein (6.3-8.2) g/dL Albumin (3.5-5.0) g/dL 01/25/22 01/25/22 Range/Units 06:36 06:36 RBC 3.49 L (4.30-5.90) m/uL Hgb 10.9 L (13.0-17.5) gm/dL Hct 33.3 L (39.0-53.0) % Plt Count 111 L (150-450) k/uL Lymphocytes # 0.5 L (1.0-4.8) k/uL D-Dimer (<0.60) mg/L FEU Chloride 111 H (98-107) mmol/L BUN 38 H (9-20) mg/dL Plasma Lactic Acid Krishna (0.7-2.0) mmol/L Calcium 7.7 L (8.4-10.2) mg/dL Troponin I (0.000-0.034) ng/mL Total Protein 5.3 L (6.3-8.2) g/dL Albumin 2.8 L (3.5-5.0) g/dL Assessment and Plan Plan: Acute sepsis secondary to healthcare associated pneumonia Acute hypoxic respiratory failure Add duonebs due to wheezing Follow cx Wean down O2 Broad-spectrum antibiotics with cefepime and vancomycin Monitor in telemetry Lactic acidosis Monitor for resolution Hypokalemia Replace and follow Elevated troponin Cardiology following, likely nonspecific sec to sepsis S/p TAVR CT surgery following DVT prophylaxis: Lovenox Chronic GERD/Reflux, Hyperlipidemia, Hypertension, Osteoarthritis (OA) RLS, Chronic back pain All stable resume meds
[2022-01-25] MEDS: ENOXAPARIN 40 MG/0.4 ML SYRINGE SQ SCH (14:10)
[2022-01-25] MEDS: CEFEPIME 2 GM in SODIUM CHLORIDE 0.9% 100 ML IVPB SCH ×2 (14:12→22:39)
--- NOTE | 2022-01-25 14:52 | P.CNPUL ---
History of Present Illness Consult date: 01/25/22 Reason for consult: dyspnea, cough History of present illness: This is a 76-year-old gentleman who follows on an outpatient basis Dr. Jacob Solano for primary care and Dr. Oliveira for cardiology. the patient is presenting today with increased cough and congestion as the patient has a wet cough and he is producing copious amount of rest or secretions. There was an obvious consented for pneumonia and for that reason the patient was hospitalized. The patient was having cold chills. He did not document any temperature at home. No reported aspiration. No sick contacts. the patient arrived to the emergency department as the patient was having increased shortness of breath and in the ED, the patient was found to be hypoxic as the patient presented to an outside emergency department at [facility]. The patient currently is being treated for right lung pneumonia. The chest x-ray so the right perihilar infiltrates/pneumoniaand this was improved compared to the chest x-ray that was done at [facility]. On today's evaluation, the patient's lactic acid level has improved from 5.6 down to 1.8. The white cell count at 8.2. The BUN is at 38 with a creatinine of 0.7 and the sodium level is at 139. He has a known history of severe aortic stenosis status post TAVR, hypertension, hyperlipidemia, chronic systolic heart failure, previous tobacco dependence, and restless leg syndrome. He was recently in the hospital at the beginning of December for elective TAVR placement. He was discharged home on postoperative day #1 and has been recovering uneventfully at home until yesterday He was started on IV antibiotics and admitted with consultation placed to cardiology, cardiac risk surgery, and pulmonology. Echocardiogram was ordered as well as blood and sputum cultures.the patient is currently on a combination of vancomycin and IV cefepime.elevated and family procedure the patient was found to have normal LV, normal functioning and positioning of the aortic valve. Review of Systems Constitutional: Reports chills, Reports fatigue, Reports poor appetite Eyes: denies as per HPI, denies blurred vision, denies bulging eye, denies decreased vision, denies diplopia, denies discharge, denies dry eye, denies irritation, denies itching, denies pain, denies photophobia, denies loss of peripheral vision, denies loss of vision, denies tunnel vision/blind spots Ears: deny: decreased hearing, ear discharge, earache, tinnitus Ears, nose, mouth and throat: Reports as per HPI Breasts: absent: as per HPI, gynecomastia Cardiovascular: Reports decreased exercise tolerance, Reports dyspnea on exertion Respiratory: Reports cough, Reports dyspnea Gastrointestinal: Reports as per HPI Genitourinary: Reports as per HPI Musculoskeletal: Reports as per HPI Musculoskeletal: absent: ankle pain, ankle stiffness, ankle swelling Integumentary: Reports as per HPI Neurological: Reports as per HPI Psychiatric: Reports as per HPI Endocrine: Reports as per HPI Hematologic/Lymphatic: Reports as per HPI Past Medical History Past Medical History: Heart Failure, GERD/Reflux, Hyperlipidemia, Hypertension, Musculoskeletal Disorder, Osteoarthritis (OA) Additional Past Medical History / Comment(s): esophageal constriction in the past, aortic valve stenosis, RLS, past hx. of compression fx. in back after a fall, chronic back pain, SOB w/exertion but improved recently History of Any Multi-Drug Resistant Organisms: None Reported Past Surgical History: Heart Catheterization Additional Past Surgical History / Comment(s): colonoscopy, EGD, МАРИНА, transcatheter aortic valve replacement completed 01/06/22 Past Anesthesia/Blood Transfusion Reactions: No Reported Reaction Past Psychological History: No Psychological Hx Reported Smoking Status: Former smoker Past Alcohol Use History: None Reported Past Drug Use History: None Reported - Past Family History Mother Family Medical History: Hypertension Father Family Medical History: Hypertension Medications and Allergies Home Medications Medication Instructions Recorded Confirmed Type Aspirin EC [Ecotrin Low Dose] 81 mg PO DAILY 11/02/21 01/24/22 History Ezetimibe [Zetia] 10 mg PO DAILY 11/02/21 01/24/22 History Furosemide [Lasix] 20 mg PO DAILY 11/02/21 01/24/22 History Gabapentin [Neurontin] 400 mg PO QID PRN 11/02/21 01/24/22 History HYDROcodone/APAP 10-325MG [Noxen 1 tab PO QID PRN 11/02/21 01/24/22 History 10-325] Lansoprazole 30 mg PO DAILY 11/02/21 01/24/22 History Meloxicam [Mobic] 15 mg PO DAILY 11/02/21 01/24/22 History Metoprolol Tartrate [Lopressor] 25 mg PO BID 11/02/21 01/24/22 History lisinopriL [Zestril] 20 mg PO DAILY 11/02/21 01/24/22 History modafiniL [Provigil] 200 mg PO DAILY 11/02/21 01/24/22 History rOPINIRole HCL [Requip] 8 mg PO HS 11/02/21 01/24/22 History Pramipexole [Mirapex] 0.5 mg PO HS 11/17/21 01/24/22 History Acetaminophen Tab [Tylenol] 650 mg PO Q4HR PRN tab 01/07/22 01/24/22 Rx Clopidogrel [Plavix] 75 mg PO DAILY #30 tab 01/07/22 01/24/22 Rx Allergies Allergy/AdvReac Type Severity Reaction Status Date / Time No Known Allergies Allergy Verified 01/24/22 11:46 Physical Exam Vitals: Vital Signs Temp Pulse Pulse Resp BP BP BP 01/25/22 07:41 98.3 F 75 20 105/55 01/25/22 04:00 98.5 F 71 18 100/51 01/25/22 02:00 71 20 01/24/22 23:42 98.2 F 71 20 92/57 01/24/22 20:00 98 F 66 20 93/57 87/44 01/24/22 16:02 98.4 F 77 20 94/53 01/24/22 15:24 80 18 97/54 01/24/22 11:38 99.1 F 77 18 102/66 Pulse Ox 01/25/22 07:41 98 01/25/22 04:00 96 01/25/22 02:00 01/24/22 23:42 99 01/24/22 20:00 95 01/24/22 16:02 95 01/24/22 15:24 95 01/24/22 11:38 98 Intake and Output 01/24/22 01/25/22 01/25/22 22:59 06:59 14:59 Intake Total 140 950 200 Output Total 400 Balance 140 550 200 Intake: IV 20 Invasive Line 1 10 Invasive Line 2 10 Intake, IV Titration 950 Amount Cefepime 2 gm In Sodium 100 Chloride 0.9% 100 ml @ 25 mls/hr IVPB Q8H [facility] Rx#: [id number] Sodium Chloride 0.9% 1, 600 000 ml @ 75 mls/hr IV . [id number] [facility] Rx#:[id number] Vancomycin 1,250 mg In 250 Sodium Chloride 0.9% 250 ml @ 125 mls/hr IVPB Q12H [facility] Rx#:[id number] Oral 120 200 Output: Urine 400 Other: Voiding Method Toilet Toilet Toilet Urinal Urinal Urinal # Voids 1 Weight 75 kg Gen. appearance the patient is calm and comfortable and the patient is currently having nonlabored breathing and the patient is currently on 4 L of O2 nasal cannula HEAD: Normal with no signs of head trauma. EYES: PERRLA, EOMI, conjunctiva normal, no discharge. ENT: Hearing grossly intact, normal oropharynx. Rhinorrhea. RESPIRATORY: Clear breath sounds bilaterally. No wheezes, rales, or rhonchi. Rhonchi over the right lung. Saturating well on 4 L nasal cannula. C/V: Regular rate and rhythm. S1 and S2 auscultated, no edema, peripheral pulses 2+ and intact throughout Abdominal exam revealed normal bowel sounds. The abdomen was soft, non-tender, and without masses, organomegaly, or appreciable enlargement of the abdominal aorta. EXT: Normal range of motion, no obvious deformity SKIN: No rashes or lesions observed on exposed skin. NEURO: Alert and oriented 4. No focal deficits. Limitations: no limitations Results - Laboratory Findings CBC and BMP: 01/25/22 06:36 01/25/22 06:36 PT/INR, D-dimer D-Dimer 6.14 mg/L FEU (<0.60) H 01/24/22 17:25 Abnormal lab findings: Abnormal Labs 01/24/22 01/24/22 01/24/22 12:05 12:05 12:05 WBC 3.1 L RBC 4.27 L Hgb 12.9 L Hct Plt Count Lymphocytes # Lymphocytes # (Manual) 0.25 L D-Dimer Potassium 3.3 L Chloride 111 H Carbon Dioxide 21 L BUN 44 H Glucose 142 H Plasma Lactic Acid Krishna Calcium 8.1 L Troponin I 0.105 H* Total Protein Albumin 01/24/22 01/24/22 01/24/22 12:05 14:53 14:53 WBC RBC Hgb Hct Plt Count Lymphocytes # Lymphocytes # (Manual) D-Dimer Potassium Chloride Carbon Dioxide BUN Glucose Plasma Lactic Acid Krishna 2.6 H* 2.2 H* Calcium Troponin I 0.195 H* Total Protein Albumin 06/26/22 06/26/22 06/26/22 17:25 17:45 17:45 WBC RBC Hgb Hct Plt Count Lymphocytes # Lymphocytes # (Manual) D-Dimer 6.14 H Potassium Chloride Carbon Dioxide BUN Glucose Plasma Lactic Acid Krishna 5.6 H* Calcium Troponin I 0.304 H* Total Protein Albumin 01/25/22 01/25/22 06:36 06:36 WBC RBC 3.49 L Hgb 10.9 L Hct 33.3 L Plt Count 111 L Lymphocytes # 0.5 L Lymphocytes # (Manual) D-Dimer Potassium Chloride 111 H Carbon Dioxide BUN 38 H Glucose Plasma Lactic Acid Krishna Calcium 7.7 L Troponin I Total Protein 5.3 L Albumin 2.8 L - Diagnostic Findings Chest x-ray: image reviewed Assessment and Plan Plan: Right lung pneumonia, multilobar, consider bacterial pneumonia. acute hypoxic respiratory failure secondary to above currently on 4 L of O2 nasal cannula Shortness of breath secondary to above History of aortic stenosis post TAVR procedure and the patient had no complication and the follow-up echocardiogram showing no significant abnormalities Hypertension Hyperlipidemia Reflux Restless leg syndrome previous history of smoking Plan Continue cefepime and vancomycin Collect sputum Gram stain and culture Put the patient on DuoNeb nebulized treatments 3 times a day Check a pro-calcitonin level Echocardiogram was noted Resume all medications We'll continue to follow
[2022-01-25] MEDS: PRAMIPEXOLE 0.5 MG TAB PO SCH (22:38)
[2022-01-25] MEDS: rOPINIRole HCL 4 MG TABLET PO SCH (22:39)
[2022-01-26 06:16] LABS: Glucose,Whole Blood 75 mg/dL (70-110)
[2022-01-26] MEDS: CEFEPIME 2 GM in SODIUM CHLORIDE 0.9% 100 ML IVPB SCH ×3 (06:23→22:07)
[2022-01-26] MEDS: PANTOPRAZOLE 40 MG TABLET PO SCH (06:23)
[2022-01-26] MEDS: IPRATROPIUM-ALBUTEROL 3 ML NEB INHALATION SCH ×4 (07:27→20:05)
[2022-01-26] MEDS: EZETIMIBE 10 MG TAB PO SCH (07:57)
[2022-01-26] MEDS: ASPIRIN 81 MG PO SCH (07:57)
[2022-01-26] MEDS: METOPROLOL TARTRATE 25 MG TAB PO SCH ×2 (07:57→20:35)
[2022-01-26] MEDS: CLOPIDOGREL 75 MG TAB PO SCH (07:57)
[2022-01-26] MEDS: ENOXAPARIN 40 MG/0.4 ML SYRINGE SQ SCH (07:57)
[2022-01-26] MEDS: FUROSEMIDE 20 MG TAB PO SCH (07:57)
[2022-01-26] MEDS: HYDROcodone/APAP 10-325MG 1 EACH TAB PO PRN ×2 (08:01→13:44)
--- NOTE | 2022-01-26 08:42 | XR ---
EXAMINATION TYPE: XR chest 1V DATE OF EXAM: 01/26/2022 COMPARISON: 01/25/2022 HISTORY: Shortness of breath TECHNIQUE: Single frontal view of the chest is obtained. FINDINGS: Left upper lobe nodularity persists may be calcified plaque. Pulmonary nodules excluded. C hronic rib deformities are seen and there is an area of ulceration involving the right perihilar and lower lobe. No sizable pleural effusion. Calcifications along the diaphragmatic surface noted. Arthro pat of the shoulders. No pneumothorax. Osteopenia. Postsurgical changes are seen suggestive of aort ic valve surgery. IMPRESSION: Stable right perihilar infiltrates. Now appears to be more prominent left perihilar inte rstitial infiltrate. Correlate for asbestos related disease.
--- NOTE | 2022-01-26 10:20 | P.PN ---
Subjective Progress Note Date: 01/26/22 This is a 76-year-old gentleman who follows on an outpatient basis Dr. Jacob Solano for primary care and Dr. Oliveira for cardiology. the patient is presenting today with increased cough and congestion as the patient has a wet cough and he is producing copious amount of rest or secretions. There was an obvious consented for pneumonia and for that reason the patient was hospitalized. The patient was having cold chills. He did not document any temperature at home. No reported aspiration. No sick contacts. the patient arrived to the emergency department as the patient was having increased shortness of breath and in the ED, the patient was found to be hypoxic as the patient presented to an outside emergency department at [facility]. The patient currently is being treated for right lung pneumonia. The chest x-ray so the right perihilar infiltrates/pneumoniaand this was improved compared to the chest x-ray that was done at [facility]. On today's evaluation, the patient's lactic acid level has improved from 5.6 down to 1.8. The white cell count at 8.2. The BUN is at 38 with a creatinine of 0.7 and the sodium level is at 139. He has a known history of severe aortic stenosis status post TAVR, hypertension, hyperlipidemia, chronic systolic heart failure, previous tobacco dependence, and restless leg syndrome. He was recently in the hospital at the beginning of December for elective TAVR placement. He was discharged home on postoperative day #1 and has been recovering uneventfully at home until yesterday He was started on IV antibiotics and admitted with consultation placed to cardiology, cardiac risk surgery, and pulmonology. Echocardiogram was ordered as well as blood and sputum cultures.the patient is currently on a combination of vancomycin and IV cefepime.elevated and family procedure the patient was found to have normal LV, normal functioning and positioning of the aortic valve. On today's evaluation of 01/26/2022, the patient is feeling slightly better compared to yesterday. He seems to be slightly less congested. He was able to give me a sputum sample and the results are still pending for now. His pro calcitonin level is quite high at 17 and this is highly suggestive of an underlying bacterial pneumonia. The chest x-ray still showing diffuse bilateral pulmonary infiltrates with airspace disease right more than left and the patient remains on a combination of cefepime and vancomycin for now. He is doing well for now. Hemodynamically stable. No altered mentation. Is on oxygen at 2 L per minute nasal cannula. His heart condition stable. The patient severe aortic stenosis and the patient underwent TAVR procedure and echocardiogram showed adequate positioning and function of the valve. Objective - Vital Signs Vital signs: Vital Signs Temp 98.1 F 01/26/22 07:55 Pulse 78 01/26/22 08:00 Resp 20 01/26/22 07:55 BP 157/83 01/26/22 07:55 Pulse Ox 98 01/26/22 07:55 FiO2 Intake & Output 01/25/22 01/26/22 01/26/22 18:59 06:59 18:59 Intake Total 560 180 Output Total 500 100 400 Balance 60 -100 -220 Intake: Oral 560 180 Output: Urine 500 100 400 Other: Voiding Method Toilet Toilet Toilet Urinal Urinal Urinal # Voids 2 - Exam Gen. appearance the patient is calm and comfortable and the patient is currently having nonlabored breathing and the patient is currently on 4 L of O2 nasal cannula HEAD: Normal with no signs of head trauma. EYES: PERRLA, EOMI, conjunctiva normal, no discharge. ENT: Hearing grossly intact, normal oropharynx. Rhinorrhea. RESPIRATORY: Clear breath sounds bilaterally. No wheezes, rales, or rhonchi. Rhonchi over the right lung. Saturating well on 4 L nasal cannula. C/V: Regular rate and rhythm. S1 and S2 auscultated, no edema, peripheral pulses 2+ and intact throughout Abdominal exam revealed normal bowel sounds. The abdomen was soft, non-tender, and without masses, organomegaly, or appreciable enlargement of the abdominal aorta. EXT: Normal range of motion, no obvious deformity SKIN: No rashes or lesions observed on exposed skin. NEURO: Alert and oriented 4. No focal deficits. Limitations: no limitations - Labs CBC & Chem 7: 01/25/22 06:36 01/25/22 06:36 Labs: Abnormal Lab Results - Last 24 Hours (Table) 01/25/22 Range/Units 06:36 Procalcitonin 17.80 H (0.02-0.09) ng/mL Microbiology - Last 24 Hours (Table) 01/25/22 10:46 Gram Stain - Preliminary Sputum Sputum Culture - Preliminary 01/24/22 17:25 Blood Culture - Preliminary Blood No Growth after 24 hours 01/24/22 17:45 Blood Culture - Preliminary Blood No Growth after 24 hours Assessment and Plan Plan: Right lung pneumonia, multilobar, consider bacterial pneumonia. Clinically improving, awaiting sputum cultures, blood cultures are negative for now. acute hypoxic respiratory failure secondary to above currently on 2 L of O2 nasal cannula Shortness of breath secondary to above History of aortic stenosis post TAVR procedure and the patient had no complication and the follow-up echocardiogram showing no significant abnormalities Hypertension Hyperlipidemia Reflux Restless leg syndrome previous history of smoking Plan Continue cefepime and vancomycin Collect sputum Gram stain and culture is still pending Put the patient on DuoNeb nebulized treatments 3 times a day Check a pro-calcitonin level is very high and we are going to repeat the level tomorrow Repeat chest x-ray in the morning Echocardiogram was noted Resume all medications We'll continue to follow
[2022-01-26] MEDS ORDERED: VANCOMYCIN TROUGH DUE 1 EACH MISC MISCELLANE ONE (11:00)
[2022-01-26 11:56] LABS: Basophils % (A) 0 %; Eosinophils # (A) 0.1 k/uL (0-0.7); Eosinophils % (A) 1 %; HCT 34.5 % (39.0-53.0); HGB 11.1 gm/dL (13.0-17.5); Hypochromasia Slight; Lymphocytes # (A) 0.5 k/uL (1.0-4.8); Lymphocytes % (A) 4 %; MCH 30.8 pg (25.0-35.0); MCHC 32.3 g/dL (31.0-37.0); MCV 95.4 fL (80.0-100.0); Monocytes # (A) 0.4 k/uL (0-1.0); Monocytes % (A) 3 %; Neutrophils # (A) 11.2 k/uL (1.3-7.7); Neutrophils % (A) 91 %; Platelet Count 141 k/uL (150-450); RBC 3.61 m/uL (4.30-5.90); RDW 14.2 % (11.5-15.5); WBC 12.3 k/uL (3.8-10.6)
[2022-01-26] MEDS: SODIUM CHLORIDE 0.9% 1,000 ML IV SCH (12:00)
[2022-01-26] MEDS: VANCOMYCIN 1,250 MG in SODIUM CHLORIDE 0.9% 250 ML IVPB SCH (12:01)
--- NOTE | 2022-01-26 13:08 | P.PN ---
Subjective The patient is a 76-year-old male with a past medical history of recent TAVR 01/06/2022, hypertension, hyperlipidemia, congestive heart failure, mild n onobstructive coronary artery disease by cardiac catheterization in October 2021, GERD. At that time of induction for valve replacement he had a transient complete heart block that resolved. He follows with Dr. Oliveira. We are following the patient for elevated troponin. Patient presented to the hospital with symptoms of progressive dyspnea happening in the last 24 hours with chills and cough. He had no chest discomfort, no dizziness or palpitation. His chest x-ray is consistent with right lower lobe pneumonia. Patient seen and examined at bedside, sitting up at the bedside. No acute distre ss. Breathing comfortably. No chest pain or shortness of breath. Feeling well. He is on IV cefepime and IV vancomycin and duonebs. Vital signs are stable. Echocardiogram revealed an EF of 5055 percent, normal functioning aortic valve without stenosis. Peak gradient of 18 mmHg/gangrene of 10 mmHg. He is currently maintained on aspirin 80 mg daily, Plavix 75 mg daily, Zetia 10 mg daily, Lasix 20 mg daily, metoprolol tartrate 25 mg twice a day, GENERAL: Well-appearing, well-nourished and in no acute distress. NECK: Supple without JVD or thyromegaly. LUNGS: Breath sounds clear to auscultation bilaterally. Respiration equal and unlabored. No wheezes, rales or rhonchi. HEART: Regular rate and rhythm. with systolic murmur at base, no rubs or gallops. S1 and S2 heard. EXTREMITIES: Normal range of motion, no edema. No clubbing or cyanosis. Peripheral pulses intact. ASSESSMENT Acute dyspnea with evidence consistent with community-acquired pneumonia Aortic stenosis s/p Recent TAVR on 01/06/2022 Mild troponin elevation, most likely related to the infection with known mild CAD by cardiac catheterization in October History of hypertension Hyperlipidemia PLAN: 2D echocardiogram reviewed no acute findinsg EF 50-55%, aortic valve functioning normally Continue home medications IV antibiotics per pulmonary service From a cardiology perspective, patient is stable. Plan to stay another 24 hours per pulmonary service for IV antibiotics Nurse practitioner note has been reviewed by physician. Signing provider agrees with the documented findings, assessment, and plan of care. Objective - Vital Signs Vital signs: Vital Signs Temp 98.3 F 01/26/22 11:39 Pulse 72 01/26/22 12:00 Resp 20 01/26/22 11:39 BP 143/73 01/26/22 11:39 Pulse Ox 99 01/26/22 11:39 FiO2 Intake & Output 01/25/22 01/26/22 01/26/22 18:59 06:59 18:59 Intake Total 560 180 Output Total 500 100 400 Balance 60 -100 -220 Intake: Oral 560 180 Output: Urine 500 100 400 Other: Voiding Method Toilet Toilet Toilet Urinal Urinal Urinal # Voids 2 - Labs CBC & Chem 7: 01/26/22 10:55 01/25/22 06:36 Labs: Abnormal Lab Results - Last 24 Hours (Table) 01/25/22 01/26/22 Range/Units 06:36 10:55 WBC 12.3 H (3.8-10.6) k/uL RBC 3.61 L (4.30-5.90) m/uL Hgb 11.1 L (13.0-17.5) gm/dL Hct 34.5 L (39.0-53.0) % Plt Count 141 L (150-450) k/uL Neutrophils # 11.2 H (1.3-7.7) k/uL Lymphocytes # 0.5 L (1.0-4.8) k/uL Procalcitonin 17.80 H (0.02-0.09) ng/mL Microbiology - Last 24 Hours (Table) 01/25/22 10:46 Gram Stain - Preliminary Sputum Sputum Culture - Preliminary Gram Neg Bacilli Gretchen albicans 01/24/22 17:25 Blood Culture - Preliminary Blood No Growth after 24 hours 01/24/22 17:45 Blood Culture - Preliminary Blood No Growth after 24 hours
[2022-01-26 13:35] LABS: African American GFR (CKD) >90 (>60 ml/min/1.73 sqM); Anion Gap 5 mmol/L; Blood Urea Nitrogen 19 mg/dL (9-20); Calcium 8.5 mg/dL (8.4-10.2); Carbon Dioxide 25 mmol/L (22-30); Chloride 106 mmol/L (98-107); Glucose 83 mg/dL (74-99); Non-African American GFR(CKD) 89 (>60 ml/min/1.73 sqM); Potassium 3.9 mmol/L (3.5-5.1); Sodium 136 mmol/L (137-145)
--- NOTE | 2022-01-26 14:48 | P.PN ---
Subjective Progress Note Date: 01/26/22 Principal diagnosis: Pneumonia Patient reports that he is feeling much better today. He is down to 2 L nasal cannula and is satting well. He denies any fever or chills. Patient says that he has been walking to the bathroom independently. Objective - Vital Signs Vital signs: Vital Signs Temp 98.3 F 01/26/22 11:39 Pulse 61 01/26/22 13:59 Resp 20 01/26/22 11:39 BP 143/73 01/26/22 11:39 Pulse Ox 99 01/26/22 11:39 FiO2 Intake & Output 01/25/22 01/26/22 01/26/22 18:59 06:59 18:59 Intake Total 560 330 Output Total 500 100 900 Balance 60 -100 -570 Intake: Oral 560 330 Output: Urine 500 100 900 Other: Voiding Method Toilet Toilet Toilet Urinal Urinal Urinal # Voids 2 - Exam General examination - Alert and Oriented 3 in NAD, patient appears chronically debilitated Heart - + S1S2 no murmurs Lungs - Clear to auscultation Abdomen soft NT ND +ve BS Extremities - No 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 Psych - Calm and cooperative - Labs CBC & Chem 7: 01/26/22 10:55 01/26/22 10:55 Labs: Abnormal Lab Results - Last 24 Hours (Table) 01/25/22 01/26/22 01/26/22 Range/Units 06:36 10:55 10:55 WBC 12.3 H (3.8-10.6) k/uL RBC 3.61 L (4.30-5.90) m/uL Hgb 11.1 L (13.0-17.5) gm/dL Hct 34.5 L (39.0-53.0) % Plt Count 141 L (150-450) k/uL Neutrophils # 11.2 H (1.3-7.7) k/uL Lymphocytes # 0.5 L (1.0-4.8) k/uL Sodium 136 L (137-145) mmol/L Procalcitonin 17.80 H (0.02-0.09) ng/mL Microbiology - Last 24 Hours (Table) 01/25/22 10:46 Gram Stain - Preliminary Sputum Sputum Culture - Preliminary Gram Neg Bacilli Gretchen albicans 01/24/22 17:25 Blood Culture - Preliminary Blood No Growth after 24 hours 01/24/22 17:45 Blood Culture - Preliminary Blood No Growth after 24 hours Assessment and Plan Assessment: 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 Pneumonia -Sepsis present on admission -Sputum culture growing gram-negative bacilli and Gretchen albicans -Blood cultures are negative to date -Resume vancomycin and cefepime -Pro calcitonin is significantly elevated -WBC elevated -Patient afebrile Acute hypoxic respiratory failure -Wean O2 as tolerated -Patient currently on 2 L nasal cannula and satting well Lactic acidosis -Normalized Hypokalemia -Replace as needed None VT troponin elevation secondary to sepsis -Patient seen by cardiology signed off Chronic conditions: GERD Hyperlipidemia Hypertension ARTHRITIS Restless leg syndrome Chronic back pain -Stable and resume home meds DVT prophylaxis: Lovenox Discharge disposition: Anticipate patient be ready for discharge in the next 24 hours sputum culture is finalized
[2022-01-26] MEDS: GABAPENTIN 400 MG CAP PO PRN (15:33)
[2022-01-26] MEDS: PRAMIPEXOLE 0.5 MG TAB PO SCH (20:35)
[2022-01-26] MEDS: rOPINIRole HCL 4 MG TABLET PO SCH (20:35)
[2022-01-26 20:38] LABS: Glucose,Whole Blood 103 mg/dL (70-110)
[2022-01-27] MEDS ORDERED: VANCOMYCIN 1,500 MG in SODIUM CHLORIDE 0.9% 250 ML IVPB SCH ×2
[2022-01-27] MEDS: GABAPENTIN 400 MG CAP PO PRN (00:26)
[2022-01-27] MEDS: HYDROcodone/APAP 10-325MG 1 EACH TAB PO PRN ×3 (00:26→16:09)
[2022-01-27] MEDS: CEFEPIME 2 GM in SODIUM CHLORIDE 0.9% 100 ML IVPB SCH ×2 (07:00→14:29)
[2022-01-27] MEDS: PANTOPRAZOLE 40 MG TABLET PO SCH (07:00)
[2022-01-27] MEDS: SODIUM CHLORIDE 0.9% 1,000 ML IV SCH ×2 (07:30→14:29)
[2022-01-27] MEDS: IPRATROPIUM-ALBUTEROL 3 ML NEB INHALATION SCH ×3 (07:51→16:03)
--- NOTE | 2022-01-27 08:33 | XR ---
EXAMINATION TYPE: Chest x-ray one view DATE OF EXAM: 01/27/2022 COMPARISON: 01/27/2020 TECHNIQUE: PA and lateral views submitted. HISTORY: Cough FINDINGS: Left upper lobe nodularity persists may be calcified plaque. Pulmonary nodules excluded. Chronic rib deformities are seen and there is an area of ulceration involving the right perihilar and lower lobe. No sizable pleural effusion. Calcifications along the diaphragmatic surface noted. Arthropathy of th e shoulders. No pneumothorax. Osteopenia. Postsurgical changes are seen suggestive of aortic valve thorne rgery. IMPRESSION: 1. Stable bilateral infiltrates. Correlate for asbestos related disease.
[2022-01-27 09:40] LABS: Basophils % (A) 0 %; Eosinophils # (A) 0.1 k/uL (0-0.7); Eosinophils % (A) 1 %; HCT 33.4 % (39.0-53.0); HGB 10.9 gm/dL (13.0-17.5); Lymphocytes # (A) 0.6 k/uL (1.0-4.8); Lymphocytes % (A) 7 %; MCH 30.9 pg (25.0-35.0); MCHC 32.7 g/dL (31.0-37.0); MCV 94.6 fL (80.0-100.0); Mean Platelet Volume 7.9; Monocytes # (A) 0.3 k/uL (0-1.0); Monocytes % (A) 3 %; Neutrophils # (A) 7.7 k/uL (1.3-7.7); Neutrophils % (A) 87 %; Platelet Count 148 k/uL (150-450); RBC 3.53 m/uL (4.30-5.90); RDW 14.5 % (11.5-15.5); WBC 8.8 k/uL (3.8-10.6)
[2022-01-27 09:59] LABS: African American GFR (CKD) >90 (>60 ml/min/1.73 sqM); Anion Gap 7 mmol/L; Blood Urea Nitrogen 19 mg/dL (9-20); Calcium 8.5 mg/dL (8.4-10.2); Carbon Dioxide 25 mmol/L (22-30); Chloride 105 mmol/L (98-107); Glucose 161 mg/dL (74-99); Non-African American GFR(CKD) 89 (>60 ml/min/1.73 sqM); Potassium 3.3 mmol/L (3.5-5.1); Sodium 137 mmol/L (137-145)
[2022-01-27] MEDS ORDERED: POTASSIUM CHLORIDE ER 20 MEQ TAB.ER PO STA (10:15)
[2022-01-27] MEDS: ENOXAPARIN 40 MG/0.4 ML SYRINGE SQ SCH (10:22)
[2022-01-27] MEDS: ASPIRIN 81 MG PO SCH (10:22)
[2022-01-27] MEDS: EZETIMIBE 10 MG TAB PO SCH (10:23)
[2022-01-27] MEDS: METOPROLOL TARTRATE 25 MG TAB PO SCH (10:23)
[2022-01-27] MEDS: CLOPIDOGREL 75 MG TAB PO SCH (10:23)
--- NOTE | 2022-01-27 10:40 | P.PN ---
Subjective Progress Note Date: 01/27/22 This is a 76-year-old gentleman who follows on an outpatient basis Dr. Jacob Solano for primary care and Dr. Oliveira for cardiology. the patient is presenting today with increased cough and congestion as the patient has a wet cough and he is producing copious amount of rest or secretions. There was an obvious consented for pneumonia and for that reason the patient was hospitalized. The patient was having cold chills. He did not document any temperature at home. No reported aspiration. No sick contacts. the patient arrived to the emergency department as the patient was having increased shortness of breath and in the ED, the patient was found to be hypoxic as the patient presented to an outside emergency department at [facility]. The patient currently is being treated for right lung pneumonia. The chest x-ray so the right perihilar infiltrates/pneumoniaand this was improved compared to the chest x-ray that was done at [facility]. On today's evaluation, the patient's lactic acid level has improved from 5.6 down to 1.8. The white cell count at 8.2. The BUN is at 38 with a creatinine of 0.7 and the sodium level is at 139. He has a known history of severe aortic stenosis status post TAVR, hypertension, hyperlipidemia, chronic systolic heart failure, previous tobacco dependence, and restless leg syndrome. He was recently in the hospital at the beginning of December for elective TAVR placement. He was discharged home on postoperative day #1 and has been recovering uneventfully at home until yesterday He was started on IV antibiotics and admitted with consultation placed to cardiology, cardiac risk surgery, and pulmonology. Echocardiogram was ordered as well as blood and sputum cultures.the patient is currently on a combination of vancomycin and IV cefepime.elevated and family procedure the patient was found to have normal LV, normal functioning and positioning of the aortic valve. On today's evaluation of 01/26/2022, the patient is feeling slightly better compared to yesterday. He seems to be slightly less congested. He was able to give me a sputum sample and the results are still pending for now. His pro calcitonin level is quite high at 17 and this is highly suggestive of an underlying bacterial pneumonia. The chest x-ray still showing diffuse bilateral pulmonary infiltrates with airspace disease right more than left and the patient remains on a combination of cefepime and vancomycin for now. He is doing well for now. Hemodynamically stable. No altered mentation. Is on oxygen at 2 L per minute nasal cannula. His heart condition stable. The patient severe aortic stenosis and the patient underwent TAVR procedure and echocardiogram showed adequate positioning and function of the valve. 01/27/2022, seeing the patient for a follow-up. The patient was hospitalized for multilobar pneumonia and the patient remains on a combination of IV cefepime and vancomycin. Note that the pro calcitonin level was also high at a time of admission and it was as high as 17. Repeat chest x-ray from today still showing persistent bilateral pulmonary infiltrates, essentially no major change compared to yesterday. Meanwhile, the patient remains on IV antibiotics. He is afebrile hemodynamically stable. The white cell count is at 8.8 with a hemoglobin of 10.9. The platelet counts of 48. Sodium is at 137. Potassium level is at 3.3. Legionella urine antigen was negative. The repeat pro calcitonin level is at 6.92 and there is an improving trend. Obviously, the elevation of the pro calcitonin level supports the diagnosis of bacterial pneumonia. Clinically stable. His oxygenation is also stable and the patient is currently on 2 L of oxygen by nasal cannula with a pulse ox of 96%. Sputum was sent yesterday and it is positive for Klebsiella pneumoniae and some Gretchen albicans. Objective - Vital Signs Vital signs: Vital Signs Temp 98.2 F 01/27/22 08:00 Pulse 72 01/27/22 08:03 Resp 18 01/27/22 08:00 BP 151/79 01/27/22 08:00 Pulse Ox 96 01/27/22 08:00 FiO2 Intake & Output 01/26/22 01/27/22 01/27/22 18:59 06:59 18:59 Intake Total 530 240 Output Total 1500 250 652 Balance -970 -250 -412 Intake: Oral 530 240 Output: Urine 1500 652 Stool 250 Other: Voiding Method Toilet Toilet Urinal Urinal # Voids 2 - Exam Gen. appearance the patient is calm and comfortable and the patient is currently having nonlabored breathing and the patient is currently on 2 L of O2 nasal cannula HEAD: Normal with no signs of head trauma. EYES: PERRLA, EOMI, conjunctiva normal, no discharge. ENT: Hearing grossly intact, normal oropharynx. Rhinorrhea. RESPIRATORY: Clear breath sounds bilaterally. No wheezes, rales, or rhonchi. Rhonchi over the right lung. Saturating well on 4 L nasal cannula. C/V: Regular rate and rhythm. S1 and S2 auscultated, no edema, peripheral pulses 2+ and intact throughout Abdominal exam revealed normal bowel sounds. The abdomen was soft, non-tender, and without masses, organomegaly, or appreciable enlargement of the abdominal aorta. EXT: Normal range of motion, no obvious deformity SKIN: No rashes or lesions observed on exposed skin. NEURO: Alert and oriented 4. No focal deficits. Limitations: no limitations - Labs CBC & Chem 7: 01/27/22 09:07 01/27/22 09:07 Labs: Abnormal Lab Results - Last 24 Hours (Table) 01/26/22 01/26/22 01/26/22 Range/Units 10:55 10:55 10:55 WBC 12.3 H (3.8-10.6) k/uL RBC 3.61 L (4.30-5.90) m/uL Hgb 11.1 L (13.0-17.5) gm/dL Hct 34.5 L (39.0-53.0) % Plt Count 141 L (150-450) k/uL Neutrophils # 11.2 H (1.3-7.7) k/uL Lymphocytes # 0.5 L (1.0-4.8) k/uL Sodium 136 L (137-145) mmol/L Potassium (3.5-5.1) mmol/L Glucose (74-99) mg/dL Procalcitonin 6.92 H (0.02-0.09) ng/mL 01/27/22 01/27/22 Range/Units 09:07 09:07 WBC (3.8-10.6) k/uL RBC 3.53 L (4.30-5.90) m/uL Hgb 10.9 L (13.0-17.5) gm/dL Hct 33.4 L (39.0-53.0) % Plt Count 148 L (150-450) k/uL Neutrophils # (1.3-7.7) k/uL Lymphocytes # 0.6 L (1.0-4.8) k/uL Sodium (137-145) mmol/L Potassium 3.3 L (3.5-5.1) mmol/L Glucose 161 H (74-99) mg/dL Procalcitonin (0.02-0.09) ng/mL Microbiology - Last 24 Hours (Table) 01/25/22 10:46 Gram Stain - Final Sputum Sputum Culture - Final Klebsiella pneumoniae Gretchen albicans 01/24/22 17:45 Blood Culture - Preliminary Blood No Growth after 48 hours 01/24/22 17:25 Blood Culture - Preliminary Blood No Growth after 48 hours Assessment and Plan Plan: Right lung pneumonia, multilobar, consider bacterial pneumonia. Clinically improving, and a sputum culture was positive for Klebsiella and the patient is improving clinically and the patient has a drop in the pro calcitonin level and oxygenation is also improved. acute hypoxic respiratory failure secondary to above currently on 2 L of O2 nasal cannula Shortness of breath secondary to above History of aortic stenosis post TAVR procedure and the patient had no compli cation and the follow-up echocardiogram showing no significant abnormalities Hypertension Hyperlipidemia Reflux Restless leg syndrome previous history of smoking Plan Continue cefepime Discontinue vancomycin Sputum culture was noted Put the patient on DuoNeb nebulized treatments 3 times a day Check a pro-calcitonin level is improving Repeat chest x-ray from this morning shows stable and unchanged bilateral pulmonary infiltrates and answers there is a delay in the chest x-ray improvemen t May need another 24 hours of IV antibiotics with IV cefepime May transitioned to Levaquin at time of discharge We'll continue to follow
[2022-01-27 11:41] LABS: Glucose,Whole Blood 103 mg/dL (70-110)
[2022-01-27 12:22] VITALS: BP 147/74; RESP 16; TEMP 98.6
--- NOTE | 2022-01-27 13:03 | P.PN ---
Subjective The patient is a 76-year-old male with a past medical history of recent TAVR 01/06/2022, hypertension, hyperlipidemia, congestive heart failure, mild n onobstructive coronary artery disease by cardiac catheterization in October 2021, GERD. At that time of induction for valve replacement he had a transient complete heart block that resolved. He follows with Dr. Oliveira. We are following the patient for elevated troponin. Patient presented to the hospital with symptoms of progressive dyspnea happening in the last 24 hours with chills and cough. He had no chest discomfort, no dizziness or palpitation. His chest x-ray is consistent with right lower lobe pneumonia. 01/27/2022 Patient seen and examined at bedside, sitting up at the bedside. No acute distress. Breathing comfortably. No chest pain or shortness of breath. Feeling well. He is on IV cefepime and duonebs. Vital signs are stable. Echocardiogram revealed an EF of 5055%, normal functioning aortic valve without stenosis. Peak gradient of 18 mmHg/gangrene of 10 mmHg. He is currently maintained on aspirin 81mg daily, Plavix 75 mg daily, Zetia 10 mg daily, Lasix 20 mg daily, metoprolol tartrate 25 mg twice a day, GENERAL: Well-appearing, well-nourished and in no acute distress. NECK: Supple without JVD or thyromegaly. LUNGS: Breath sounds clear to auscultation bilaterally. Respiration equal and unlabored. No wheezes, rales or rhonchi. HEART: Regular rate and rhythm. with systolic murmur at base, no rubs or gallops. S1 and S2 heard. EXTREMITIES: Normal range of motion, no edema. No clubbing or cyanosis. Peripheral pulses intact. ASSESSMENT Acute dyspnea with evidence consistent with community-acquired pneumonia Aortic stenosis s/p Recent TAVR on 01/06/2022 Mild troponin elevation, most likely related to the infection with known mild CAD by cardiac catheterization in October History of hypertension Hyperlipidemia PLAN: 2D echocardiogram reviewed no acute findinsg EF 50-55%, aortic valve functioning normally Continue home medications IV antibiotics per pulmonary service From a cardiology perspective, patient is stable. Rest of management per pulmonary and primary. Nurse practitioner note has been reviewed by physician. Signing provider agrees with the documented findings, assessment, and plan of care. Objective - Vital Signs Vital signs: Vital Signs Temp 98.6 F 01/27/22 12:00 Pulse 73 01/27/22 12:00 Resp 16 01/27/22 12:00 BP 147/74 01/27/22 12:00 Pulse Ox 94 L 01/27/22 12:00 FiO2 Intake & Output 01/26/22 01/27/22 01/27/22 18:59 06:59 18:59 Intake Total 530 240 Output Total 6380 003 9891 Balance -975 -680 -682 Intake: Oral 530 240 Output: Urine 1500 1052 Stool 250 Other: Voiding Method Toilet Toilet Urinal Urinal # Voids 2 - Labs CBC & Chem 7: 01/27/22 09:07 01/27/22 09:07 Labs: Abnormal Lab Results - Last 24 Hours (Table) 01/26/22 01/26/22 01/27/22 Range/Units 10:55 10:55 09:07 RBC 3.53 L (4.30-5.90) m/uL Hgb 10.9 L (13.0-17.5) gm/dL Hct 33.4 L (39.0-53.0) % Plt Count 148 L (150-450) k/uL Lymphocytes # 0.6 L (1.0-4.8) k/uL Sodium 136 L (137-145) mmol/L Potassium (3.5-5.1) mmol/L Glucose (74-99) mg/dL Procalcitonin 6.92 H (0.02-0.09) ng/mL 01/27/22 Range/Units 09:07 RBC (4.30-5.90) m/uL Hgb (13.0-17.5) gm/dL Hct (39.0-53.0) % Plt Count (150-450) k/uL Lymphocytes # (1.0-4.8) k/uL Sodium (137-145) mmol/L Potassium 3.3 L (3.5-5.1) mmol/L Glucose 161 H (74-99) mg/dL Procalcitonin (0.02-0.09) ng/mL Microbiology - Last 24 Hours (Table) 01/25/22 10:46 Gram Stain - Final Sputum Sputum Culture - Final Klebsiella pneumoniae Gretchen albicans 01/24/22 17:45 Blood Culture - Preliminary Blood No Growth after 48 hours 01/24/22 17:25 Blood Culture - Preliminary Blood No Growth after 48 hours
--- NOTE | 2022-01-27 13:19 | P.DS ---
Providers Date of admission: 01/24/22 13:26 Expected date of discharge: 01/27/22 Attending physician: Pita Tomas MD Consults: 01/24/22 13:13 Consult Physician Routine Consulting Provider: Wesley Walden Consult Reason/Comments: recent TAVR Do you want consulting provider notified?: Yes, Notify in am 01/24/22 13:33 Consult Physician Routine Consulting Provider: [facility] Consult Reason/Comments: elevated troponin Do you want consulting provider notified?: Already Contacted 01/24/22 16:10 Consult Physician Routine Consulting Provider: Temo Cortés Consult Reason/Comments: pneumonia Do you want consulting provider notified?: Yes Primary care physician: Stated None Hospital Course: Discharge Diagnosis: Acute sepsis secondary to healthcare solution pneumonia (patient recently hospitalized earlier this month for TAVR) Lactic acidosis Hypokalemia Non DE troponin elevation secondary to sepsis Status post TAVR GERD/Reflux, Hyperlipidemia, Hypertension, Osteoarthritis (OA) RLS, Chronic back pain Hospital Course: 76 y/o male with hx of heart failure, hypertension, GERD, recent TAVR done by Dr. Walden on January 06 presents from [facility] for right-sided pneumonia. Patient awoke today with sob, coughing and feeling cold. He was having shaking chills according to but no fevers. In the ED patient was found to be hypoxic in the 70s and was started on BiPAP. Chest x-ray showed right-sided lung opacity. Patient was started on broad- spectrum antibiotics with vancomycin and cefepime. Patient was then referred for admission. Patient during hospitalization had significant improvement while on the antibiotics. His pro-calcitonin trended down from greater than 16 to 6.92. Patient was also weaned down to room air. His sputum culture grew Klebsiella pneumonia that is only resistant to ampicillin. Patient was seen by pulmonology who recommended to discharge patient on Levaquin. Patient will be discharged on Levaquin to complete a his antibiotic course. Patient was seen on the day of discharge. I did watch him exit the bathroom and sit on his chair without any oxygen and patient did not appear to be short of breath. Patient seen and examined at bedside.[] Vital signs reviewed and stable. General: [non toxic], [no distress], [appears at stated age] Derm: [warm], [dry] Head: [atraumatic], [normocephalic], [symmetric] Eyes: [EOMI], [no lid lag], [anicteric sclera] Mouth: [no lip lesion], [mucus membranes moist] Cardiovascular: [S1S2 reg], [no murmur], [positive posterior tibial pulse bilateral], Lungs: [Diminished as does bilaterally], [no rhonchi, no rales] , [no accessory muscle use] Abdominal: [soft], [ nontender to palpation], [no guarding], [no appreciable organomegaly] Ext: [no gross muscle atrophy], [no edema], [no contractures] Neuro: [ CN II-XI grossly intact], [no focal neuro deficits] Psych: [Alert], [oriented], [appropriate affect] A total of [33] minutes of time were spent preparing this complex discharge summary . Patient Condition at Discharge: Stable Plan - Discharge Summary Discharge Rx Participant: Yes New Discharge Prescriptions: New Levofloxacin [Levaquin] 750 mg PO DAILY 5 Days #5 tab Continue rOPINIRole HCL [Requip] 8 mg PO HS modafiniL [Provigil] 200 mg PO DAILY lisinopriL [Zestril] 20 mg PO DAILY Metoprolol Tartrate [Lopressor] 25 mg PO BID Meloxicam [Mobic] 15 mg PO DAILY Aspirin EC [Ecotrin Low Dose] 81 mg PO DAILY Lansoprazole 30 mg PO DAILY HYDROcodone/APAP 10-325MG [[place] 10-325] 1 tab PO QID PRN PRN Reason: Pain Gabapentin [Neurontin] 400 mg PO QID PRN PRN Reason: Pain Pramipexole [Mirapex] 0.5 mg PO HS Acetaminophen Tab [Tylenol] 650 mg PO Q4HR PRN tab PRN Reason: Fever And/ Or Mild Pain (1-3) Furosemide [Lasix] 20 mg PO DAILY Ezetimibe [Zetia] 10 mg PO DAILY Clopidogrel [Plavix] 75 mg PO DAILY #30 tab Discharge Medication List Aspirin EC [Ecotrin Low Dose] 81 mg PO DAILY 11/02/21 [History] Ezetimibe [Zetia] 10 mg PO DAILY 11/02/21 [History] Furosemide [Lasix] 20 mg PO DAILY 11/02/21 [History] Gabapentin [Neurontin] 400 mg PO QID PRN 11/02/21 [History] HYDROcodone/APAP 10-325MG [[place] 10-325] 1 tab PO QID PRN 11/02/21 [History] Lansoprazole 30 mg PO DAILY 11/02/21 [History] Meloxicam [Mobic] 15 mg PO DAILY 11/02/21 [History] Metoprolol Tartrate [Lopressor] 25 mg PO BID 11/02/21 [History] lisinopriL [Zestril] 20 mg PO DAILY 11/02/21 [History] modafiniL [Provigil] 200 mg PO DAILY 11/02/21 [History] rOPINIRole HCL [Requip] 8 mg PO HS 11/02/21 [History] Pramipexole [Mirapex] 0.5 mg PO HS 11/17/21 [History] Acetaminophen Tab [Tylenol] 650 mg PO Q4HR PRN tab 01/07/22 [Rx] Clopidogrel [Plavix] 75 mg PO DAILY #30 tab 01/07/22 [Rx] Levofloxacin [Levaquin] 750 mg PO DAILY 5 Days #5 tab 01/27/22 [Rx] Follow up Appointment(s)/Referral(s): Phoenix Oliveira MD [STAFF PHYSICIAN] - 1 Week None,Stated [Primary Care Provider] - 1-2 days Discharge Disposition: HOME WITH HOME HEALTH SERVICES
[2022-01-27 16:17] VITALS: PULSE 78
--- NOTE | 2022-01-28 13:56 | CONS ---
CONSULTATION DATE OF SERVICE: 01/25/22 I met with this patient for 45 minutes during this consultation. I have seen, examined, and agree with the midlevel's findings. EMERSON / DAYN: [id number] / [phone]
== END 2022-01-27 16:33 | disposition home health service (06) | DRG 871 ==
LOC: EC 11:36 → 4SSUR 13:26 → 3SCARD 13:32
PROVIDERS: ADMIT Internal Medicine; ATTEND Internal Medicine
DX: A41.50 Gram-negative sepsis, unspecified (principal); J15.9 Unspecified bacterial pneumonia; J96.01 Acute respiratory failure with hypoxia; E87.2 Acidosis; I50.22 Chronic systolic (congestive) heart failure; Z16.11 Resistance to penicillins; E78.5 Hyperlipidemia, unspecified; E87.6 Hypokalemia; G25.81 Restless legs syndrome; G89.29 Other chronic pain; R65.20 Severe sepsis without septic shock; I11.0 Hypertensive heart disease with heart failure; I25.10 Atherosclerotic heart disease of native coronary artery without angina pectoris; I35.0 Nonrheumatic aortic (valve) stenosis; Y95 Nosocomial condition; D72.819 Decreased white blood cell count, unspecified; K21.9 Gastro-esophageal reflux disease without esophagitis; B96.1 Klebsiella pneumoniae [K. pneumoniae] as the cause of diseases classified elsewhere; M19.90 Unspecified osteoarthritis, unspecified site; Z20.822 Contact with and (suspected) exposure to COVID-19; Z79.02 Long term (current) use of antithrombotics/antiplatelets; Z79.1 Long term (current) use of non-steroidal anti-inflammatories (NSAID); Z79.82 Long term (current) use of aspirin; Z79.899 Other long term (current) drug therapy; Z87.891 Personal history of nicotine dependence; Z82.49 Family history of ischemic heart disease and other diseases of the circulatory system
CPT/HCPCS: 36415; 71045; 71046; 80048; 80053; 80202; 83605; 83735; 83880; 84145; 84484; 85025; 85379; 87040; 87070; 87077; 87186; 87205; 87449; 93005; 93308; 94640; 94760; 99291

== ENCOUNTER 2022-03-13 22:39 | Observation (INO) | payer MEDICARE ==
[2022-03-13] MEDS ORDERED: IPRATROPIUM-ALBUTEROL 3 ML NEB INHALATION STA (22:45)
[2022-03-13] MEDS ORDERED: SODIUM CHLORIDE 0.9% 1,000 ML IV STA ×2 (22:45)
[2022-03-13] MEDS ORDERED: IBUPROFEN 800 MG TAB PO STA (22:49)
[2022-03-13] MEDS ORDERED: ACETAMINOPHEN TAB 500 MG TAB PO STA (22:49)
--- NOTE | 2022-03-13 22:49 | ED ---
SOB HPI - General Chief Complaint: Shortness of Breath Stated Complaint: TRISTEN Time Seen by Provider: 03/13/22 22:45 Source: patient, RN notes reviewed, old records reviewed Mode of arrival: wheelchair Limitations: no limitations - History of Present Illness Initial Comments: This is a 68-year-old male DF for evaluation. Presents today for evaluation of shortness of breath and fever. Exertional shortness of breath activity. Better when he lays down but still not improved. MD Complaint: shortness of breath, cough -: hour(s), days(s) Severity: moderate Severity scale (1-10): 6 Quality: sharp Consistency: intermittent Improves With: nothing Worsens With: nothing Known History Of: congestive heart failure Context: recent URI, recent illness Associated Symptoms: pain with inspiration, cough, sputum production Treatments Prior to Arrival: none - Related Data Home Medications Medication Instructions Recorded Confirmed Aspirin EC [Ecotrin Low Dose] 81 mg PO DAILY 11/02/21 03/14/22 Ezetimibe [Zetia] 10 mg PO DAILY 11/02/21 03/14/22 Furosemide [Lasix] 20 mg PO DAILY 11/02/21 03/14/22 Gabapentin [Neurontin] 400 mg PO QID PRN 11/02/21 03/14/22 HYDROcodone/APAP 10-325MG [[place] 1 tab PO QID PRN 11/02/21 03/14/22 10-325] Lansoprazole 30 mg PO DAILY 11/02/21 03/14/22 Meloxicam [Mobic] 15 mg PO DAILY 11/02/21 03/14/22 Metoprolol Tartrate [Lopressor] 25 mg PO BID 11/02/21 03/14/22 lisinopriL [Zestril] 20 mg PO DAILY 11/02/21 03/14/22 modafiniL [Provigil] 200 mg PO DAILY 11/02/21 03/14/22 rOPINIRole HCL [Requip] 8 mg PO HS 11/02/21 03/14/22 Pramipexole [Mirapex] 0.5 mg PO HS 11/17/21 03/14/22 Previous Rx's Medication Instructions Recorded Acetaminophen Tab [Tylenol] 650 mg PO Q4HR PRN tab 01/07/22 Clopidogrel [Plavix] 75 mg PO DAILY #30 tab 01/07/22 Sulfamethox-Tmp 800-160Mg [Bactrim 1 tab PO Q12HR #14 tab 03/16/22 DS 800-160 mg] Allergies Allergy/AdvReac Type Severity Reaction Status Date / Time No Known Allergies Allergy Verified 03/13/22 22:44 Review of Systems ROS Statement: Those systems with pertinent positive or pertinent negative responses have been documented in the HPI. ROS Other: All systems not noted in ROS Statement are negative. Past Medical History Past Medical History: Heart Failure, GERD/Reflux, Hyperlipidemia, Hypertension, Musculoskeletal Disorder, Osteoarthritis (OA) Additional Past Medical History / Comment(s): esophageal constriction in the past, aortic valve stenosis, RLS, past hx. of compression fx. in back after a fall, chronic back pain, SOB w/exertion but improved recently History of Any Multi-Drug Resistant Organisms: None Reported Past Surgical History: Heart Catheterization Additional Past Surgical History / Comment(s): colonoscopy, EGD, МАРИНА, transcatheter aortic valve replacement completed 01/06/22 Past Anesthesia/Blood Transfusion Reactions: No Reported Reaction Past Psychological History: No Psychological Hx Reported Smoking Status: Former smoker Past Alcohol Use History: None Reported Past Drug Use History: None Reported - Past Family History Mother Family Medical History: Hypertension Father Family Medical History: Hypertension General Exam Limitations: no limitations General appearance: alert, in no apparent distress Head exam: Present: atraumatic, normocephalic, normal inspection Eye exam: Present: normal appearance, PERRL, EOMI. Absent: scleral icterus, conjunctival injection, periorbital swelling ENT exam: Present: normal exam, mucous membranes moist Neck exam: Present: normal inspection. Absent: tenderness, meningismus, lymphadenopathy Respiratory exam: Present: normal lung sounds bilaterally. Absent: respiratory distress, wheezes, rales, rhonchi, stridor Cardiovascular Exam: Present: regular rate, normal rhythm, normal heart sounds. Absent: systolic murmur, diastolic murmur, rubs, gallop, clicks GI/Abdominal exam: Present: soft, normal bowel sounds. Absent: distended, tenderness, guarding, rebound, rigid Extremities exam: Present: normal inspection, full ROM, normal capillary refill. Absent: tenderness, pedal edema, joint swelling, calf tenderness Back exam: Present: normal inspection Neurological exam: Present: alert, oriented X3, CN II-XII intact Psychiatric exam: Present: normal affect, normal mood Skin exam: Present: warm, dry, intact, normal color. Absent: rash Course Vital Signs 03/13/22 03/13/22 03/13/22 22:41 22:44 23:21 Temperature 102.9 F H Pulse Rate 111 H 86 96 Respiratory 24 24 Rate Blood Pressure 139/73 O2 Sat by Pulse 94 L 97 Oximetry 03/13/22 03/14/22 03/14/22 23:40 00:00 00:52 Temperature 99.6 F Pulse Rate 87 96 92 Respiratory 20 22 Rate Blood Pressure 140/72 88/54 O2 Sat by Pulse 97 96 Oximetry 03/14/22 03/14/22 03/14/22 01:00 02:00 02:33 Temperature Pulse Rate 82 78 80 Respiratory 22 22 24 Rate Blood Pressure 85/50 96/42 95/50 O2 Sat by Pulse 96 96 96 Oximetry - Reevaluation(s) Reevaluation #1: Medical record is reviewed Patient is improved here in the ER Patient is informed of results and questions are answered Medical Decision Making - Medical Decision Making 68 male presents today for evaluation. Patient presents today for evaluation of shortness of breath found to have significant fever pneumonia with history of CHF. Patient will be admitted for further evaluation management - Lab Data Result diagrams: 03/16/22 05:45 03/13/22 23:00 Lab Results 03/13/22 03/13/22 03/13/22 Range/Units 23:00 23:00 23:00 WBC 14.9 H (3.8-10.6) k/uL RBC 4.84 (4.30-5.90) m/uL Hgb 14.1 D (13.0-17.5) gm/dL Hct 44.4 (39.0-53.0) % MCV 91.8 (80.0-100.0) fL MCH 29.2 (25.0-35.0) pg MCHC 31.8 (31.0-37.0) g/dL RDW 14.1 (11.5-15.5) % Plt Count 169 (150-450) k/uL MPV 7.2 Neutrophils % 92 % Lymphocytes % 2 % Monocytes % 4 % Eosinophils % 1 % Basophils % 0 % Neutrophils # 13.7 H (1.3-7.7) k/uL Lymphocytes # 0.3 L (1.0-4.8) k/uL Monocytes # 0.6 (0-1.0) k/uL Eosinophils # 0.2 (0-0.7) k/uL Basophils # 0.0 (0-0.2) k/uL PT 11.3 (9.0-12.0) sec INR 1.0 (<1.2) APTT 27.2 (22.0-30.0) sec Sodium 137 (137-145) mmol/L Potassium 4.0 (3.5-5.1) mmol/L Chloride 101 (98-107) mmol/L Carbon Dioxide 22 (22-30) mmol/L Anion Gap 14 mmol/L BUN 25 H (9-20) mg/dL Creatinine 0.74 (0.66-1.25) mg/dL Est GFR (CKD-EPI)AfAm >90 (>60 ml/min/1.73 sqM) Est GFR (CKD-EPI)NonAf 88 (>60 ml/min/1.73 sqM) Glucose 118 H (74-99) mg/dL Plasma Lactic Acid Krishna (0.7-2.0) mmol/L Calcium 9.5 (8.4-10.2) mg/dL Magnesium 1.7 (1.6-2.3) mg/dL Total Bilirubin 1.1 (0.2-1.3) mg/dL AST 28 (17-59) U/L ALT 24 (4-49) U/L Alkaline Phosphatase 85 (38-126) U/L Troponin I (0.000-0.034) ng/mL NT-Pro-B Natriuret Pep pg/mL Total Protein 8.0 (6.3-8.2) g/dL Albumin 4.6 (3.5-5.0) g/dL 03/13/22 03/13/22 03/13/22 Range/Units 23:00 23:00 23:00 WBC (3.8-10.6) k/uL RBC (4.30-5.90) m/uL Hgb (13.0-17.5) gm/dL Hct (39.0-53.0) % MCV (80.0-100.0) fL MCH (25.0-35.0) pg MCHC (31.0-37.0) g/dL RDW (11.5-15.5) % Plt Count (150-450) k/uL MPV Neutrophils % % Lymphocytes % % Monocytes % % Eosinophils % % Basophils % % Neutrophils # (1.3-7.7) k/uL Lymphocytes # (1.0-4.8) k/uL Monocytes # (0-1.0) k/uL Eosinophils # (0-0.7) k/uL Basophils # (0-0.2) k/uL PT (9.0-12.0) sec INR (<1.2) APTT (22.0-30.0) sec Sodium (137-145) mmol/L Potassium (3.5-5.1) mmol/L Chloride (98-107) mmol/L Carbon Dioxide (22-30) mmol/L Anion Gap mmol/L BUN (9-20) mg/dL Creatinine (0.66-1.25) mg/dL Est GFR (CKD-EPI)AfAm (>60 ml/min/1.73 sqM) Est GFR (CKD-EPI)NonAf (>60 ml/min/1.73 sqM) Glucose (74-99) mg/dL Plasma Lactic Acid Krish[place] 1.2 (0.7-2.0) mmol/L Calcium (8.4-10.2) mg/dL Magnesium (1.6-2.3) mg/dL Total Bilirubin (0.2-1.3) mg/dL AST (17-59) U/L ALT (4-49) U/L Alkaline Phosphatase (38-126) U/L Troponin I <0.012 (0.000-0.034) ng/mL NT-Pro-B Natriuret Pep 2260 pg/mL Total Protein (6.3-8.2) g/dL Albumin (3.5-5.0) g/dL - EKG Data -: EKG Interpreted by Me (EKG is tachycardia sinus 103 LA 144 QRS and QTc is 374) - Radiology Data Radiology results: report reviewed (Chest x-ray positive for CHF and pneumonia), image reviewed Disposition Clinical Impression: Pneumonia, Fever Disposition: ADMITTED IP TO THIS [facility] Is patient prescribed a controlled substance at d/c from ED?: No Time of Disposition: 00:50
[2022-03-13 23:30] LABS: Basophils % (A) 0 %; Eosinophils # (A) 0.2 k/uL (0-0.7); Eosinophils % (A) 1 %; HCT 44.4 % (39.0-53.0); Lymphocytes # (A) 0.3 k/uL (1.0-4.8); Lymphocytes % (A) 2 %; MCH 29.2 pg (25.0-35.0); MCHC 31.8 g/dL (31.0-37.0); MCV 91.8 fL (80.0-100.0); Mean Platelet Volume 7.2; Monocytes # (A) 0.6 k/uL (0-1.0); Monocytes % (A) 4 %; Neutrophils # (A) 13.7 k/uL (1.3-7.7); Neutrophils % (A) 92 %; Platelet Count 169 k/uL (150-450); RBC 4.84 m/uL (4.30-5.90); RDW 14.1 % (11.5-15.5); WBC 14.9 k/uL (3.8-10.6)
--- NOTE | 2022-03-13 23:36 | XR ---
EXAMINATION TYPE: XR chest 1V portable DATE OF EXAM: 03/13/2022 COMPARISON: 01/27/2022 HISTORY: Short of breath TECHNIQUE: FINDINGS: There is no heart failure nor confluent pneumonic infiltrate. There is some coarsening of i nterstitial markings. Thoracic aorta is atheromatous. IMPRESSION: Cardiomegaly. There is coarsening of the lung markings and pulmonary infiltrates are most ly cleared compared to old exam. No heart failure.
[2022-03-13 23:40] LABS: ALT 24 U/L (4-49); AST 28 U/L (17-59); African American GFR (CKD) >90 (>60 ml/min/1.73 sqM); Albumin 4.6 g/dL (3.5-5.0); Alkaline Phosphatase 85 U/L (38-126); Anion Gap 14 mmol/L; Blood Urea Nitrogen 25 mg/dL (9-20); Calcium 9.5 mg/dL (8.4-10.2); Carbon Dioxide 22 mmol/L (22-30); Chloride 101 mmol/L (98-107); Glucose 118 mg/dL (74-99); Magnesium 1.7 mg/dL (1.6-2.3); Non-African American GFR(CKD) 88 (>60 ml/min/1.73 sqM); Sodium 137 mmol/L (137-145); Total Bilirubin 1.1 mg/dL (0.2-1.3)
[2022-03-13 23:41] LABS: Partial Thromboplastin Time 27.2 sec (22.0-30.0); Prothrombin Time 11.3 sec (9.0-12.0)
[2022-03-13 23:45] LABS: HGB 14.1 gm/dL (13.0-17.5)
[2022-03-14] MEDS ORDERED: AZITHROMYCIN 500 MG in SODIUM CHLORIDE 0.9% 250 ML IVPB STA (00:52)
[2022-03-14] MEDS ORDERED: PNEUMONIA PROTOCOL UTILIZED 1 EACH MISC PO PRN (00:52)
[2022-03-14] MEDS ORDERED: SODIUM CHLORIDE 0.9% 1,000 ML IV STA (01:30)
[2022-03-14] MEDS ORDERED: ACETAMINOPHEN TAB 325 MG TAB PO PRN (10:59)
[2022-03-14] MEDS: HYDROcodone/APAP 10-325MG 1 EACH TAB PO PRN ×2 (11:12→18:30)
[2022-03-14] MEDS: EZETIMIBE 10 MG TAB PO SCH (11:12)
[2022-03-14] MEDS: METOPROLOL TARTRATE 25 MG TAB PO SCH ×2 (11:12→20:16)
[2022-03-14] MEDS: MELOXICAM 7.5 MG TAB PO SCH (11:12)
[2022-03-14] MEDS: CLOPIDOGREL 75 MG TAB PO SCH (11:13)
[2022-03-14] MEDS: GABAPENTIN 400 MG CAP PO PRN ×2 (11:13→18:30)
[2022-03-14] MEDS: lisinopriL 20 MG TAB PO SCH (11:13)
[2022-03-14] MEDS: FUROSEMIDE 20 MG TAB PO SCH (11:13)
[2022-03-14] MEDS ORDERED: LORazepam 0.5 MG TAB PO PRN (17:39)
[2022-03-14] MEDS ORDERED: CALCIUM CARBONATE 500 MG CHEWABLE PO PRN (17:39)
[2022-03-14] MEDS ORDERED: TEMAZEPAM 15 MG CAP PO PRN (17:39)
[2022-03-14] MEDS ORDERED: NALOXONE 0.4 MG/ML 1 ML VIAL IV PRN (17:39)
[2022-03-14] MEDS ORDERED: ONDANSETRON 4 MG/2 ML VIAL IVP PRN (17:39)
[2022-03-14] MEDS ORDERED: LACTULOSE 20 GM/30 ML CUP PO PRN (17:39)
--- NOTE | 2022-03-14 17:44 | P.HPIM ---
History of Present Illness H&P Date: 03/14/22 Chief Complaint: Short of breath fever This is a pleasant 76-year-old patient of Dr. Jacob Solano. 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 Up to 102. Some yellow-brown sputum. Tired rundown. Presented to the ER. Diagnosed with pneumonia. Started on IV ceftriaxone. Oral intake fair Review of systems: GEN.: Fever tired EYES: None HEENT: None NECK: None RESPIRATORY: [As above CARDIOVASCULAR: None GASTROINTESTINAL: None GENITOURINARY: None MUSCULOSKELETAL: Joint pains LYMPHATICS: None HEMATOLOGICAL: None PSYCHIATRY: None NEUROLOGICAL: None Past medical history to include: CHF, GERD, hypertension, hyperlipidemia, osteoarthritis, esophageal stricture with dilatation, aortic valve stenosis treated with TAPVR, restless leg syndrome, come pressure fractured her lower back with chronic back pain Social history: Lives with his . Smoked for about 20 years less than half a pack a day stopped about 40 years ago. No alcohol. Family history: Hypertension Physical examination: VITAL SIGNS: 102.9, 111, 24, 1 39 x 73, 94% room air GENERAL: 27.0, declining but awake, not in distress. EYES: Pupils equal. Conjunctiva normal. HEENT: External appearance of nose and ears normal, oral cavity grossly normal. NECK: JVD not raised; masses not palpable. HEART: First and second heart sounds are normal; no edema. LUNGS:[ Respiratory rate increased decreased breath sounds. ABDOMEN: Soft, nontender, liver spleen not palpable, no masses palpable. PSYCH: Alert and oriented x3; mood and affect normal. MUSCULOSKELETAL:No Clubbing/cyanosis;muscles-grossly intact, evidence of OA NEUROLOGICAL: Cranial nerves grossly intact; no facial asymmetry, power and sensation grossly intact. LYMPHATICS: No lymph nodes palpable in the axilla and neck INVESTIGATIONS, reviewed in the clinical context: WBC 14.9 hemoglobin 14.1 platelets 169 potassium 4 BUN 25 creatinine 0.74 Troponin I less than 0.012, proBNP 2260 COVID-19: PCR: Not detected EKG tracing personally reviewed by me-normal sinus rhythm. Nonspecific ST-T wave changes. Chest x-ray film personally reviewed by me-some right hilar infiltrate probable Assessment plan: -Right-sided pneumonia, suspect gram-negative organism causing sepsis IV ceftriaxone. Zithromax. Sputum for Gram stain and culture -Sepsis secondary to pneumonia Careful hydration given history of CHF -Restless leg syndrome Requip 8 mg daily at bedtime -Essential hypertension Zestril 20 mg a day, Lopressor 25 mg twice a day -Hyperlipidemia Zetia 10 mg a day -Chronic lumbar arthritis with prior compression fracture [place] 10 4 times a day when necessary, Mobic -GERD PPI -Chronic congestive heart failure, EF not known Lasix 20 mg a day IV ceftriaxone, Zithromax. Resume home medications. Sputum for Gram stain and culture. IV fluids. Gentle hydration given CHF. Care was discussed with the patient. Questions answered. Past Medical History Past Medical History: Heart Failure, GERD/Reflux, Hyperlipidemia, Hypertension, Musculoskeletal Disorder, Osteoarthritis (OA), Pneumonia Additional Past Medical History / Comment(s): esophageal constriction in the past, aortic valve stenosis, RLS, past hx. of compression fx. in back after a fall, chronic back pain, SOB w/exertion but improved recently History of Any Multi-Drug Resistant Organisms: None Reported Past Surgical History: Heart Catheterization Additional Past Surgical History / Comment(s): colonoscopy, EGD, МАРИНА, transcatheter aortic valve replacement completed 01/06/22 Past Anesthesia/Blood Transfusion Reactions: No Reported Reaction Past Psychological History: No Psychological Hx Reported Smoking Status: Former smoker Past Alcohol Use History: None Reported Additional Past Alcohol Use History / Comment(s): quit smoking 40 yrs. ago, smoked for 20 yrs. <1/2ppd Past Drug Use History: None Reported - Past Family History Mother Family Medical History: Hypertension Father Family Medical History: Hypertension Medications and Allergies Home Medications Medication Instructions Recorded Confirmed Type Aspirin EC [Ecotrin Low Dose] 81 mg PO DAILY 11/02/21 03/14/22 History Ezetimibe [Zetia] 10 mg PO DAILY 11/02/21 03/14/22 History Furosemide [Lasix] 20 mg PO DAILY 11/02/21 03/14/22 History Gabapentin [Neurontin] 400 mg PO QID PRN 11/02/21 03/14/22 History HYDROcodone/APAP 10-325MG [[place] 1 tab PO QID PRN 11/02/21 03/14/22 History 10-325] Lansoprazole 30 mg PO DAILY 11/02/21 03/14/22 History Meloxicam [Mobic] 15 mg PO DAILY 11/02/21 03/14/22 History Metoprolol Tartrate [Lopressor] 25 mg PO BID 11/02/21 03/14/22 History lisinopriL [Zestril] 20 mg PO DAILY 11/02/21 03/14/22 History modafiniL [Provigil] 200 mg PO DAILY 11/02/21 03/14/22 History rOPINIRole HCL [Requip] 8 mg PO HS 11/02/21 03/14/22 History Pramipexole [Mirapex] 0.5 mg PO HS 11/17/21 03/14/22 History Acetaminophen Tab [Tylenol] 650 mg PO Q4HR PRN tab 01/07/22 03/14/22 Rx Clopidogrel [Plavix] 75 mg PO DAILY #30 tab 01/07/22 03/14/22 Rx Allergies Allergy/AdvReac Type Severity Reaction Status Date / Time No Known Allergies Allergy Verified 03/13/22 22:44 Physical Exam Vitals: Vital Signs Temp Pulse Pulse Resp BP BP Pulse Ox 03/14/22 07:53 97.7 F 72 17 104/66 96 03/14/22 03:05 98.3 F 75 16 93/52 97 03/14/22 02:33 80 24 95/50 96 03/14/22 02:00 78 22 96/42 96 03/14/22 01:00 82 22 85/50 96 03/14/22 00:52 99.6 F 92 22 88/54 96 03/14/22 00:00 96 20 140/72 97 03/13/22 23:40 87 03/13/22 23:21 96 03/13/22 22:44 86 24 97 03/13/22 22:41 102.9 F H 111 H 24 139/73 94 L Intake and Output 03/13/22 03/14/22 03/14/22 22:59 06:59 14:59 Output Total 300 1450 Balance -300 -1450 Output: Urine 300 1450 Other: Voiding Method Toilet Urinal # Voids 1 Weight 73.482 kg 73.482 kg Results CBC & Chem 7: 03/13/22 23:00 03/13/22 23:00 Labs: Abnormal Lab Results - Last 24 Hours (Table) 03/13/22 03/13/22 Range/Units 23:00 23:00 WBC 14.9 H (3.8-10.6) k/uL Neutrophils # 13.7 H (1.3-7.7) k/uL Lymphocytes # 0.3 L (1.0-4.8) k/uL BUN 25 H (9-20) mg/dL Glucose 118 H (74-99) mg/dL Thrombosis Risk Factor Assmnt - Choose All That Apply Any of the Below Risk Factors Present?: Yes Each Factor Represents 1 point: Obesity (BMI >25), Serious lung disease incl. pneumonia (< 1month) Other Risk Factors: No Other congenital or acquired thrombophilia - If yes, enter type in comment: No Thrombosis Risk Factor Assessment Total Risk Factor Score: 2 Thrombosis Risk Factor Assessment Level: Low Risk
[2022-03-14] MEDS: ASPIRIN 81 MG PO SCH (18:30)
[2022-03-14] MEDS: PANTOPRAZOLE 40 MG TABLET PO SCH (18:30)
[2022-03-14] MEDS: rOPINIRole HCL 4 MG TABLET PO SCH (20:16)
[2022-03-14] MEDS: PRAMIPEXOLE 0.5 MG TAB PO SCH (20:17)
[2022-03-15] MEDS: SODIUM CHLORIDE 0.9% 1,000 ML IV SCH ×2 (00:07→15:02)
--- NOTE | 2022-03-15 07:12 | XR ---
EXAMINATION TYPE: XR chest 2V DATE OF EXAM: 03/15/2022 6:17 AM COMPARISON: Chest radiographs from 03/13/2022 TECHNIQUE: XR chest 2V Frontal and lateral views of the chest. CLINICAL INDICATION:Male, 76 years old with history of Pneumonia; FINDINGS: Lungs/Pleura: Similar coarsened interstitial lung markings. Residual left basilar airspace infiltrate s. Stable left upper lobe nodularity and along the diaphragmatic surface consistent with calcified pl aque. Heart/mediastinum: Cardiomediastinal silhouette is enlarged and stable. Postsurgical changes with ao rtic valve surgery. Atherosclerotic calcifications are seen in the aorta. Musculoskeletal: Multiple level degenerative disc disease changes seen throughout the spine. Chronic rib deformities. Arthropathy of both shoulders. IMPRESSION: Residual left basilar airspace infiltrates. Stable calcified pleural plaques.
[2022-03-15] MEDS: PANTOPRAZOLE 40 MG TABLET PO SCH (10:13)
[2022-03-15] MEDS: lisinopriL 20 MG TAB PO SCH (10:13)
[2022-03-15] MEDS: METOPROLOL TARTRATE 25 MG TAB PO SCH ×2 (10:14→20:51)
[2022-03-15] MEDS: MELOXICAM 7.5 MG TAB PO SCH (10:14)
[2022-03-15] MEDS: CLOPIDOGREL 75 MG TAB PO SCH (10:15)
[2022-03-15] MEDS: ASPIRIN 81 MG PO SCH (10:15)
[2022-03-15] MEDS: EZETIMIBE 10 MG TAB PO SCH (10:15)
[2022-03-15] MEDS: FUROSEMIDE 20 MG TAB PO SCH (10:15)
[2022-03-15] MEDS: AZITHROMYCIN 500 MG TAB PO SCH (15:05)
--- NOTE | 2022-03-15 18:12 | P.PN ---
Progress Note - Text Progress Note Date: 03/15/22 Chief Complaint: Short of breath fever This is a pleasant 76-year-old patient of Dr. Jacob Solano. 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 Up to 102. Some yellow-brown sputum. Tired rundown. Presented to the ER. Diagnosed with pneumonia. Started on IV ceftriaxone. Oral intake fair Admitted with pneumonia. Sepsis. Started IV ceftriaxone. March 15: Breathing better. No fever. Some sputum. IV Septra and sent. Eating well. Up to the bathroom. Active Medications Acetaminophen (Acetaminophen Tab 325 Mg Tab) 650 mg PO Q4HR PRN PRN Reason: Fever And/ Or Mild Pain (1-3) Hydrocodone Bitart/Acetaminophen (Hydrocodone/Apap 10-325mg 1 Each Tab) 1 each PO QID PRN PRN Reason: Moderate Pain Last Admin: 03/14/22 18:30 Dose: 1 each Aspirin (Aspirin 81 Mg) 81 mg PO DAILY REPLACED BY [facility] Last Admin: 03/15/22 10:15 Dose: 81 mg Azithromycin (Azithromycin 500 Mg Tab) 500 mg PO DAILY REPLACED BY [facility]; Protocol Stop: 03/16/22 09:01 Last Admin: 03/15/22 15:05 Dose: 500 mg Calcium Carbonate/Glycine (Calcium Carbonate 500 Mg Chewable) 1,000 mg PO Q4HR PRN PRN Reason: Dyspepsia Clopidogrel Bisulfate (Clopidogrel 75 Mg Tab) 75 mg PO DAILY REPLACED BY [facility] Last Admin: 03/15/22 10:15 Dose: 75 mg Ezetimibe (Ezetimibe 10 Mg Tab) 10 mg PO DAILY REPLACED BY [facility] Last Admin: 03/15/22 10:15 Dose: 10 mg Furosemide (Furosemide 20 Mg Tab) 20 mg PO DAILY REPLACED BY [facility] Last Admin: 03/15/22 10:15 Dose: 20 mg Gabapentin (Gabapentin 400 Mg Cap) 400 mg PO QID PRN PRN Reason: Pain Last Admin: 03/14/22 18:30 Dose: 400 mg Ceftriaxone Sodium 2 gm/ (Sodium Chloride) 50 mls @ 100 mls/hr IVPB Q24H REPLACED BY [facility]; Protocol Stop: 03/18/22 01:29 Last Admin: 03/15/22 00:06 Dose: 100 mls/hr Sodium Chloride (Saline 0.9%) 1,000 mls @ 50 mls/hr IV .Q20H REPLACED BY [facility] Last Admin: 03/15/22 15:02 Dose: Not Given Lactulose (Lactulose 20 Gm/30 Ml Cup) 20 gm PO DAILY PRN PRN Reason: Constipation Lisinopril (Lisinopril 20 Mg Tab) 20 mg PO DAILY REPLACED BY [facility] Last Admin: 03/15/22 10:13 Dose: 20 mg Lorazepam (Lorazepam 0.5 Mg Tab) 0.5 mg PO Q6HR PRN PRN Reason: Anxiety Meloxicam (Meloxicam 7.5 Mg Tab) 15 mg PO DAILY REPLACED BY [facility] Last Admin: 03/15/22 10:14 Dose: 15 mg Metoprolol Tartrate (Metoprolol Tartrate 25 Mg Tab) 25 mg PO BID REPLACED BY [facility] Last Admin: 03/15/22 10:14 Dose: 25 mg Miscellaneous Information (Pneumonia Protocol Utilized 1 Each Misc) 1 each PO ONCE PRN PRN Reason: Per Protocol Modafinil (Modafinil 200 Mg Tab) 200 mg PO DAILY REPLACED BY [facility] Last Admin: 03/15/22 10:55 Dose: Not Given Naloxone HCl (Naloxone 0.4 Mg/Ml 1 Ml Vial) 0.2 mg IV Q2M PRN PRN Reason: Opioid Reversal Ondansetron HCl (Ondansetron 4 Mg/2 Ml Vial) 4 mg IVP Q8HR PRN PRN Reason: Nausea And Vomiting Pantoprazole Sodium (Pantoprazole 40 Mg Tablet) 40 mg PO DAILY REPLACED BY [facility] Last Admin: 03/15/22 10:13 Dose: 40 mg Pramipexole Dihydrochloride (Pramipexole 0.5 Mg Tab) 0.5 mg PO HS REPLACED BY [facility] Last Admin: 03/14/22 20:17 Dose: 0.5 mg Ropinirole HCl (Ropinirole Hcl 4 Mg Tablet) 8 mg PO HS REPLACED BY [facility] Last Admin: 03/14/22 20:16 Dose: 8 mg Temazepam (Temazepam 15 Mg Cap) 15 mg PO HS PRN PRN Reason: Insomnia Past medical history to include: CHF, GERD, hypertension, hyperlipidemia, osteoarthritis, esophageal stricture with dilatation, aortic valve stenosis treated with TAPVR, restless leg s yndrome, come pressure fractured her lower back with chronic back pain Social history: Lives with his . Smoked for about 20 years less than half a pack a day stopped about 40 years ago. No alcohol. Family history: Hypertension Physical examination: VITAL SIGNS: 99, 63, 16, 136/72, 98% room air GENERAL: Up in a chair, breathing better EYES: Pupils equal. Conjunctiva normal. HEENT: External appearance of nose and ears normal, oral cavity grossly normal. NECK: JVD not raised; masses not palpable. HEART: First and second heart sounds are normal; no edema. LUNGS:[ Respiratory rate normal, decreased breath sounds. ABDOMEN: Soft, nontender, liver spleen not palpable, no masses palpable. PSYCH: Alert and oriented x3; mood and affect normal. MUSCULOSKELETAL:No Clubbing/cyanosis;muscles-grossly intact, evidence of OA INVESTIGATIONS, reviewed in the clinical context: WBC 14.9 hemoglobin 14.1 platelets 169 potassium 4 BUN 25 creatinine 0.74 Troponin I less than 0.012, proBNP 2260 COVID-19: PCR: Not detected EKG tracing personally reviewed by me-normal sinus rhythm. Nonspecific ST-T wave changes. Chest x-ray film personally reviewed by me-some right hilar infiltrate probable Assessment plan: -Right-sided pneumonia, suspect gram-negative organism causing sepsis: Improving IV ceftriaxone. Zithromax. Sputum for Gram stain and culture -Sepsis secondary to pneumonia: Improving Careful hydration given history of CHF -Restless leg syndrome Requip 8 mg daily at bedtime -Essential hypertension Zestril 20 mg a day, Lopressor 25 mg twice a day -Hyperlipidemia Zetia 10 mg a day -Chronic lumbar arthritis with prior compression fracture [place] 10 4 times a day when necessary, Mobic -GERD PPI -Chronic congestive heart failure, EF not known Lasix 20 mg a day IV ceftriaxone, Zithromax. DC IV fluids. Increase activity. Discussed with patient. Hopefully discharge tomorrow.
[2022-03-15] MEDS: HYDROcodone/APAP 10-325MG 1 EACH TAB PO PRN (19:33)
[2022-03-15] MEDS: PRAMIPEXOLE 0.5 MG TAB PO SCH (20:51)
[2022-03-15] MEDS: rOPINIRole HCL 4 MG TABLET PO SCH (20:51)
[2022-03-16 06:05] LABS: Basophils % (A) 0 %; Eosinophils # (A) 0.3 k/uL (0-0.7); Eosinophils % (A) 4 %; HCT 36.6 % (39.0-53.0); HGB 11.5 gm/dL (13.0-17.5); Lymphocytes # (A) 0.8 k/uL (1.0-4.8); Lymphocytes % (A) 9 %; MCH 29.1 pg (25.0-35.0); MCHC 31.3 g/dL (31.0-37.0); MCV 92.9 fL (80.0-100.0); Mean Platelet Volume 7.8; Monocytes # (A) 0.6 k/uL (0-1.0); Monocytes % (A) 7 %; Neutrophils # (A) 6.5 k/uL (1.3-7.7); Neutrophils % (A) 77 %; Platelet Count 165 k/uL (150-450); RBC 3.94 m/uL (4.30-5.90); WBC 8.4 k/uL (3.8-10.6)
[2022-03-16] MEDS: ASPIRIN 81 MG PO SCH (09:35)
[2022-03-16] MEDS: AZITHROMYCIN 500 MG TAB PO SCH (09:35)
[2022-03-16] MEDS: EZETIMIBE 10 MG TAB PO SCH (09:35)
[2022-03-16] MEDS: MELOXICAM 7.5 MG TAB PO SCH (09:35)
[2022-03-16] MEDS: CLOPIDOGREL 75 MG TAB PO SCH (09:35)
[2022-03-16] MEDS: FUROSEMIDE 20 MG TAB PO SCH (09:35)
[2022-03-16] MEDS: PANTOPRAZOLE 40 MG TABLET PO SCH (09:36)
[2022-03-16] MEDS: METOPROLOL TARTRATE 25 MG TAB PO SCH (09:36)
[2022-03-16] MEDS: lisinopriL 20 MG TAB PO SCH (09:36)
[2022-03-16] MEDS: HYDROcodone/APAP 10-325MG 1 EACH TAB PO PRN (09:42)
[2022-03-16 14:06] VITALS: BP 152/69; PULSE 52; RESP 18; TEMP 98.4
--- NOTE | 2022-03-16 17:39 | P.DS ---
Providers Date of admission: 03/14/22 00:53 Expected date of discharge: 03/16/22 Attending physician: Charles Donnelly Primary care physician: Jacob Solano MD Hospital Course: Chief Complaint: Short of breath fever This is a pleasant 76-year-old patient of Dr. Jacob Solano. 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 Up to 102. Some yellow-brown sputum. Tired rundown. Presented to the ER. Diagnosed with pneumonia. Started on IV ceftriaxone. Oral intake fair Admitted with pneumonia. Sepsis. Started IV ceftriaxone. March 15: Breathing better. No fever. Some sputum. IV Septra and sent. Eating well. Up to the bathroom. March 16: This morning when I saw the patient sputum culture not finalized. Patient be discharged on Bactrim. Care was discussed with the patient. Ques tions answered. Discussion and discharge planning more than 35 minutes Past medical history to include: CHF, GERD, hypertension, hyperlipidemia, osteoarthritis, esophageal stricture with dilatation, aortic valve stenosis treated with TAPVR, restless leg syndrome, come pressure fractured her lower back with chronic back pain Social history: Lives with his . Smoked for about 20 years less than half a pack a day stopped about 40 years ago. No alcohol. Family history: Hypertension Physical examination: VITAL SIGNS: 98.4, 52, 18, 152/69, 97% room air GENERAL: Up in a chair, breathing better EYES: Pupils equal. Conjunctiva normal. HEENT: External appearance of nose and ears normal, oral cavity grossly normal. NECK: JVD not raised; masses not palpable. HEART: First and second heart sounds are normal; no edema. LUNGS:[ Respiratory rate normal, decreased breath sounds. ABDOMEN: Soft, nontender, liver spleen not palpable, no masses palpable. PSYCH: Alert and oriented x3; mood and affect normal. MUSCULOSKELETAL:No Clubbing/cyanosis;muscles-grossly intact, evidence of OA INVESTIGATIONS, reviewed in the clinical context: March 16: WBC 8.4 hemoglobin 11.5 platelets 165. Pro-calcitonin 0.39 Sputum culture: Staph aureus WBC 14.9 hemoglobin 14.1 platelets 169 potassium 4 BUN 25 creatinine 0.74 Troponin I less than 0.012, proBNP 2260 COVID-19: PCR: Not detected EKG tracing personally reviewed by me-normal sinus rhythm. Nonspecific ST-T wave changes. Chest x-ray film personally reviewed by me-some right hilar infiltrate probable Assessment plan: -Right-sided pneumonia, suspect gram-negative organism causing sepsis: Staph aureus. Better IV ceftriaxone. Zithromax. Sputum for Gram stain and culture. Bactrim DS 1 tablet every 12 7 days -Sepsis secondary to pneumonia: Improving Careful hydration given history of CHF -Restless leg syndrome Requip 8 mg daily at bedtime -Essential hypertension Zestril 20 mg a day, Lopressor 25 mg twice a day -Hyperlipidemia Zetia 10 mg a day -Chronic lumbar arthritis with prior compression fracture [place] 10 4 times a day when necessary, Mobic -GERD PPI -Chronic congestive heart failure, EF not known Lasix 20 mg a day Disposition: Home Plan - Discharge Summary Discharge Rx Participant: No New Discharge Prescriptions: New Sulfamethox-Tmp 800-160Mg [Bactrim DS 800-160 mg] 1 tab PO Q12HR #14 tab Continue rOPINIRole HCL [Requip] 8 mg PO HS modafiniL [Provigil] 200 mg PO DAILY lisinopriL [Zestril] 20 mg PO DAILY Metoprolol Tartrate [Lopressor] 25 mg PO BID Meloxicam [Mobic] 15 mg PO DAILY Aspirin EC [Ecotrin Low Dose] 81 mg PO DAILY Lansoprazole 30 mg PO DAILY HYDROcodone/APAP 10-325MG [[place] 10-325] 1 tab PO QID PRN PRN Reason: Pain Gabapentin [Neurontin] 400 mg PO QID PRN PRN Reason: Pain Pramipexole [Mirapex] 0.5 mg PO HS Acetaminophen Tab [Tylenol] 650 mg PO Q4HR PRN tab PRN Reason: Fever And/ Or Mild Pain (1-3) Furosemide [Lasix] 20 mg PO DAILY Ezetimibe [Zetia] 10 mg PO DAILY Clopidogrel [Plavix] 75 mg PO DAILY #30 tab Discharge Medication List Aspirin EC [Ecotrin Low Dose] 81 mg PO DAILY 11/02/21 [History] Ezetimibe [Zetia] 10 mg PO DAILY 11/02/21 [History] Furosemide [Lasix] 20 mg PO DAILY 11/02/21 [History] Gabapentin [Neurontin] 400 mg PO QID PRN 11/02/21 [History] HYDROcodone/APAP 10-325MG [[place] 10-325] 1 tab PO QID PRN 11/02/21 [History] Lansoprazole 30 mg PO DAILY 11/02/21 [History] Meloxicam [Mobic] 15 mg PO DAILY 11/02/21 [History] Metoprolol Tartrate [Lopressor] 25 mg PO BID 11/02/21 [History] lisinopriL [Zestril] 20 mg PO DAILY 11/02/21 [History] modafiniL [Provigil] 200 mg PO DAILY 11/02/21 [History] rOPINIRole HCL [Requip] 8 mg PO HS 11/02/21 [History] Pramipexole [Mirapex] 0.5 mg PO HS 11/17/21 [History] Acetaminophen Tab [Tylenol] 650 mg PO Q4HR PRN tab 01/07/22 [Rx] Clopidogrel [Plavix] 75 mg PO DAILY #30 tab 01/07/22 [Rx] Sulfamethox-Tmp 800-160Mg [Bactrim DS 800-160 mg] 1 tab PO Q12HR #14 tab 03/16/22 [Rx] Follow up Appointment(s)/Referral(s): Jacob Solano MD [Primary Care Provider] - 1-2 days Patient Instructions/Handouts: Community Acquired Pneumonia (DC) Discharge Disposition: HOME SELF-CARE
== END 2022-03-16 14:20 | disposition home or self-care (01) ==
LOC: EC 22:39 → INTOOBSV 03-14 00:53 → 4SSUR 03-14 00:53 → UNDODISIN 03-16 14:20
PROVIDERS: ADMIT Hospitalist; ATTEND Hospitalist
DX: A41.01 Sepsis due to Methicillin susceptible Staphylococcus aureus (principal); J15.211 Pneumonia due to Methicillin susceptible Staphylococcus aureus; I11.0 Hypertensive heart disease with heart failure; I50.9 Heart failure, unspecified; G25.81 Restless legs syndrome; K22.2 Esophageal obstruction; E78.5 Hyperlipidemia, unspecified; G89.29 Other chronic pain; M47.816 Spondylosis without myelopathy or radiculopathy, lumbar region; M19.90 Unspecified osteoarthritis, unspecified site; K21.9 Gastro-esophageal reflux disease without esophagitis; G47.00 Insomnia, unspecified; F41.9 Anxiety disorder, unspecified; K59.00 Constipation, unspecified; E66.9 Obesity, unspecified; Z68.27 Body mass index [BMI] 27.0-27.9, adult; Z20.822 Contact with and (suspected) exposure to COVID-19; Z79.02 Long term (current) use of antithrombotics/antiplatelets; Z79.82 Long term (current) use of aspirin; Z79.1 Long term (current) use of non-steroidal anti-inflammatories (NSAID); Z79.899 Other long term (current) drug therapy; Z95.2 Presence of prosthetic heart valve; Z87.891 Personal history of nicotine dependence; Z98.890 Other specified postprocedural states; Z82.49 Family history of ischemic heart disease and other diseases of the circulatory system
CPT/HCPCS: 96361 ×3; 96366 ×2; 96365; 96367; 96375; 99285; 36415; 94640; 93005; 83880; 80053; 83605; 83735; 84484; 85025 ×2; 85610; 85730; 87040; 87070; 87205; 87077; 87186; 84145; 87635; 71045; 71046; G0378 ×3; J3360; J0456; J0696 ×3

== ENCOUNTER 2023-05-18 09:12 | Day surgery (SDC) | payer MEDICARE ==
[~2023-05-18 09:12] MED LIST changes: -ASPIRIN 325 MG TAB PO ONE; -ATORVASTATIN 10 MG TAB PO ONE; -CLEVIDIPINE BUTYRATE 25 MG in EMPTY BAG 1 BAG IV PRN; -CLOPIDOGREL 75 MG TAB PO ONE; -ELECTROLYTE-A SOLUTION 1,000 ML with POTASSIUM CHLORIDE 100 MEQ, MAGNESIUM SULFATE 16 M... IV PRN; -INSULIN REGULAR 100 UNIT in SODIUM CHLORIDE 0.9% 100 ML IV PRN; -METOPROLOL TARTRATE 25 MG TAB PO ONE; -NITROGLYCERIN-D5W PMX 25 MG/250 ML BTL IV PRN; -PROTAMINE SULFATE 250 MG in EMPTY BAG 1 BAG IV PRN; -SODIUM CHLORIDE 0.9% 500 ML 500 ML INTRAARTER PRN; -TRANEXAMIC ACID 2,000 MG in SODIUM CHLORIDE 0.9% 80 ML IV PRN
[2023-05-18 09:51] VITALS: RESP 16; TEMP 97
[2023-05-18] MEDS ORDERED: PROPOFOL 10 MG/ML 20 ML VIAL IV ONE (10:26)
[2023-05-18] MEDS ORDERED: LIDOCAINE 1% INJ 10MG/ML (20 ML MDV) ONE (10:26)
--- NOTE | 2023-05-18 10:35 | P.PCN ---
Date of Procedure: 05/18/23 Procedure(s) Performed: BRIEF HISTORY: Patient is a 78-year-old, pleasant, white female scheduled for an upper endoscopy as a part of evaluation of intermittent dysphagia to solids for the last 2 years duration.. PROCEDURE PERFORMED: Esophagogastroduodenoscopy with balloon dilation. PREOPERATIVE DIAGNOSIS: Intermittent dysphagia to solids.. IV sedation per anesthesia. PROCEDURE: After informed consent was obtained, the patient was brought into the endoscopy unit. IV sedation was administered by Anesthesia under continuous monitoring. Initially the Olympus GIF-140 video endoscope was inserted into the mouth. Esophagus intubated without any difficulty. It was gradually advanced into the stomach and duodenum and carefully examined. The bulb and the second part of the duodenum appeared normal. The scope at this time was withdrawn to the stomach, adequately insufflated with air, and upon careful examination, mucosa of the antrum, body, cardia and the fundus appeared normal. The scope was then withdrawn into the esophagus. The GE junction was located at 39 cm from the incisors. Small hiatal hernia noted. There was a distal esophageal Schatzki's ring identified that was widely patent. It was dilated using 1518-20 mm TTS balloon in a sequential fashion for 60 seconds. The esophagus appeared normal. There were no erosions or ulcerations seen and the patient tolerated the procedure well. IMPRESSION: 1. Distal esophageal Schatzki's ring status post balloon dilation using 18-20 m m TTS balloon as described above 2. Small hiatal hernia. RECOMMENDATIONS: The findings of this examination were discussed with the patient . He was advised to be on a clear liquid diet for 2 hours. Follow up in office if he has recurrent dysphagia.
[2023-05-18 11:06] VITALS: BP 147/79; PULSE 53
== END 2023-05-18 11:15 | disposition home or self-care (01) ==
LOC: ORWHC2ENDO 09:12
PROVIDERS: ATTEND Internal Medicine Gastroenterology
DX: K22.2 Esophageal obstruction (principal); K44.9 Diaphragmatic hernia without obstruction or gangrene; I25.10 Atherosclerotic heart disease of native coronary artery without angina pectoris; E78.5 Hyperlipidemia, unspecified; I10 Essential (primary) hypertension; I35.0 Nonrheumatic aortic (valve) stenosis; Z79.899 Other long term (current) drug therapy; Z79.82 Long term (current) use of aspirin
CPT/HCPCS: 43249; J2001; J2704; C1726

== ENCOUNTER → 2023-06-22 | Outpatient (CLI) | payer MEDICARE ==
--- NOTE | 2023-06-22 12:25 | FL ---
EXAMINATION TYPE: FL barium swallow DATE OF EXAM: 06/22/2023 CLINICAL INDICATION: 78-year-old male R13.10, dysphagia. Complaining of food getting stuck in the thr oat for 4 to 5 months. History of esophageal dilatation about a month ago. COMPARISON: None Total Fluoroscopy Time: 2 minutes 25 seconds Total DAP: 345.18 mGycm2. Total images: 63 FINDINGS: The swallowing mechanism is normal. However, we note a small to moderate-sized anchors diverticulum w hich remains filled with the ingested contrast. There is moderate to severe thickening of the cricoph aryngeus muscle just below the Zenker's diverticulum. Thoracic portion shows a normal course. There is mild narrowing at the level of the GE junction with a moderate size sliding hiatal hernia. There are significantly limited secondary stripping waves whic h results in prolonged pooling of contrast in the esophagus and moderate tertiary peristaltic waves n oted. Episodes of intraesophageal reflux are also encountered. Otherwise, the mucosa is normal and no persistent filling defect is encountered. We had difficulty assessing for gastroesophageal reflux with Valsalva and turning maneuvers. Incidentally, there appears to be moderate fold thickening at the fundus of the stomach with a small rounded defects that may represent underlying polyps. Incidental endovascular aortic valve replacement. IMPRESSION: 1. Moderate to severe CP muscle hypertrophy/spasm likely accounting for the patient's symptoms. There is a corresponding small to moderate-sized Zenker's diverticulum. 2. Presbyesophagus with moderate esophageal dysmotility. 3. Moderate-sized sliding hiatal hernia and mild narrowing at the GE junction. A mild stricture is thorne ggested, benign favored given the smooth mucosa. Correlate with findings on direct inspection. 4. Incidentally, there is focal thickening along the visualized fundus of the stomach and possible un derlying polyps. These could represent hyperplastic polyps in the setting of chronic gastritis. Corre late with findings on direct inspection to exclude adenomatous polyps.
== END | disposition home or self-care (01) ==
LOC: RADUSWWP 10:12
PROVIDERS: ATTEND Internal Medicine Gastroenterology
DX: R13.10 Dysphagia, unspecified (principal); K22.5 Diverticulum of esophagus, acquired; K44.9 Diaphragmatic hernia without obstruction or gangrene
CPT/HCPCS: 74220

== ENCOUNTER 2023-10-17 11:49 | Inpatient (IN) | payer MEDICARE ==
--- NOTE | 2023-10-17 12:02 | ED ---
General Adult HPI - General Chief complaint: Shortness of Breath Stated complaint: Weakness/SOB Time Seen by Provider: 10/17/23 11:55 Source: patient, RN notes reviewed, old records reviewed Mode of arrival: ambulatory Limitations: no limitations - History of Present Illness Initial comments: This is an 78-year-old male who comes to the emergency department complaining of difficulty breathing. Patient states that started this morning when he got up a nd he has not got any improvement. Patient states he was unaware that he had a fever at home. Patient states he has had a cough since this morning. Patient denies any chest pain or palpitations. Patient denies any abdominal pain patient has nausea vomiting diarrhea. Patient states he did get a vaccination for COVID influenza and RSV. Patient denies any back pain. Patient has lightheadedness or dizziness. states that ever since this started to occur this morning he falls asleep quite quickly and has been very tired all morning. - Related Data Home Medications Medication Instructions Recorded Confirmed Aspirin EC [Ecotrin Low Dose] 81 mg PO DAILY 11/02/21 05/13/23 Ezetimibe [Zetia] 10 mg PO DAILY 11/02/21 05/13/23 Gabapentin [Neurontin] 400 mg PO QID PRN 11/02/21 05/13/23 HYDROcodone/APAP 10-325MG [[place] 1 tab PO QID PRN 11/02/21 05/13/23 10-325] Lansoprazole 30 mg PO DAILY 11/02/21 05/13/23 Meloxicam [Mobic] 15 mg PO DAILY 11/02/21 05/18/23 Metoprolol Tartrate [Lopressor] 25 mg PO BID 11/02/21 05/18/23 lisinopriL [Zestril] 20 mg PO DAILY 11/02/21 05/18/23 modafiniL [Provigil] 200 mg PO DAILY 11/02/21 05/18/23 rOPINIRole HCL [Requip] 8 mg PO HS 11/02/21 05/13/23 Pramipexole [Mirapex] 0.5 mg PO HS 11/17/21 05/13/23 Previous Rx's Medication Instructions Recorded Acetaminophen Tab [Tylenol] 650 mg PO Q4HR PRN tab 01/07/22 Allergies Allergy/AdvReac Type Severity Reaction Status Date / Time No Known Allergies Allergy Verified 10/17/23 11:54 Review of Systems ROS Statement: Those systems with pertinent positive or pertinent negative responses have been documented in the HPI. ROS Other: All systems not noted in ROS Statement are negative. Past Medical History Past Medical History: Heart Failure, GERD/Reflux, Hyperlipidemia, Hypertension, Musculoskeletal Disorder, Osteoarthritis (OA) Additional Past Medical History / Comment(s): esophageal constriction in the past, aortic valve stenosis, RLS, past hx. of compression fx. in back after a fall, chronic back pain, dry cough - has seen Dr. Monson recently History of Any Multi-Drug Resistant Organisms: None Reported Past Surgical History: Cardiac Valve Replacement, Heart Catheterization Additional Past Surgical History / Comment(s): colonoscopy, EGD, МАРИНА, transcatheter aortic valve replacement completed 01/06/22 Past Anesthesia/Blood Transfusion Reactions: No Reported Reaction Past Psychological History: No Psychological Hx Reported Smoking Status: Former smoker Past Alcohol Use History: None Reported Past Drug Use History: None Reported - Past Family History Mother Family Medical History: No Reported History, Hypertension Father Family Medical History: No Reported History, Hypertension General Exam - General Exam Comments Initial Comments: GENERAL: Patient is well-developed and well-nourished. Patient is nontoxic and well- hydrated and is in mild distress. ENT: Neck is soft and supple. No significant lymphadenopathy is noted. Oropharynx is clear. Moist mucous membranes. Neck has full range of motion without eliciting any pain. EYES: The sclera were anicteric and conjunctiva were pink and moist. Extraocular movements were intact and pupils were equal round and reactive to light. Eyelids were unremarkable. PULMONARY: Unlabored respirations. Good breath sounds bilaterally. Patient has some crackles bilateral bases and some expiratory wheezing CARDIOVASCULAR: There is a regular rate and rhythm without any murmurs gallops or rubs. ABDOMEN: Soft and nontender with normal bowel sounds. SKIN: Skin is clear with no lesions or rashes and otherwise unremarkable. NEUROLOGIC: Patient is alert and oriented x3. Cranial nerves II through XII are grossly intact. Motor and sensory are also intact. Normal speech, volume and content. Symmetrical smile. MUSCULOSKELETAL: Normal extremities with adequate strength and full range of motion. No lower extremity swelling or edema. No calf tenderness. LYMPHATICS: No significant lymphadenopathy is noted PSYCHIATRIC: Normal psychiatric evaluation. Limitations: no limitations Course Vital Signs 10/17/23 10/17/23 10/17/23 11:52 12:08 12:30 Temperature 100.8 F H Pulse Rate 99 101 H 92 Respiratory 22 23 24 Rate Blood Pressure 186/80 138/79 O2 Sat by Pulse 93 L Oximetry 10/17/23 10/17/23 10/17/23 12:46 13:00 13:12 Temperature Pulse Rate 90 89 81 Respiratory 18 19 Rate Blood Pressure 95/81 95/81 O2 Sat by Pulse 91 L 92 L Oximetry 10/17/23 10/17/23 13:22 13:30 Temperature Pulse Rate 82 Respiratory 28 H Rate Blood Pressure 102/71 O2 Sat by Pulse Oximetry Medical Decision Making - Medical Decision Making EKG is interpreted by myself. EKG shows a sinus rhythm with occasional PVC at 9 8 bpm parables 163 QRS is 105 QT interval is 324 QTc is 380. Patient's EKG shows no ST segment ovation or depression. Was pt. sent in by a medical professional or institution (, PA, MAIL SORTER, urgent ca re, hospital, or residential...) When possible be specific @ -No Did you speak to anyone other than the patient for history (EMS, parent, family, police, friend...)? What history was obtained from this source @ -Patient's gave most of the history Did you review nursing and triage notes (agree or disagree)? Why? @ -I reviewed and agree with nursing and triage notes Were old charts reviewed (outside hosp., previous admission, EMS record, old EKG, old radiological studies, urgent care reports/EKG's, residential records)? Report findings @ -I reviewed prior charts and prior lab work on this patient Differential Diagnosis (chest pain, altered mental status, abdominal pain women, abdominal pain men, vaginal bleeding, weakness, fever, dyspnea, syncope, headache, dizziness, GI bleed, back pain, seizure, CVA, palpatations, mental health, musculoskeletal)? @ -Differential Dyspnea: Coronary syndrome, arrhythmia, tamponade, asthma, COPD, pulmonary embolism, pneumonia, pneumothorax, pulmonary effusion, anaphylaxis, diabetic ketoacidosis, flailed chest, pulmonary contusion, diaphragmatic rupture, anemia, neuromuscular, this is not meant to be an all-inclusive list. EKG interpreted by me (3pts min.). @ -As above X-rays interpreted by me (1pt min.). @ -Chest x-ray shows a right middle lobe pneumonia CT interpreted by me (1pt min.). @ -None done U/S interpreted by me (1pt. min.). @ -None done What testing was considered but not performed or refused? (CT, X-rays, U/S, labs)? Why? @ -None What meds were considered but not given or refused? Why? @ -None Did you discuss the management of the patient with other professionals (professionals i.e. , PA, MAIL SORTER, lab, RT, psych nurse, dialysis social worker, barrel rifler button, teacher, youth officer, patient case manager)? Give summary @ -[facility] admit the patient wrote admitting orders Was smoking cessation discussed for >3mins.? @ -No Was critical care preformed (if so, how long)? @ -No Were there social determinants of health that impacted care today? How? (Homelessness, low income, unemployed, alcoholism, drug addiction, transportation, low edu. Level, literacy, decrease access to med. care, nursing home, rehab)? @ -No Was there de-escalation of care discussed even if they declined (Discuss DNR or withdrawal of care, Hospice)? DNR status @ -No What co-morbidities impacted this encounter? (DM, HTN, Smoking, COPD, CAD, Cancer, CVA, ARF, Chemo, Hep., AIDS, mental health diagnosis, sleep apnea, morbid obesity)? @ -None Was patient admitted / discharged? Hospital course, mention meds given and route, prescriptions, significant lab abnormalities, going to OR and other pertinent info. @ -Patient had pneumonia start the patient on Rocephin smitha blood cultures. Patient was given breathing treatments because he was wheezing diffusely. Patient was also given steroids. [facility] admitted and wrote admitting orders Undiagnosed new problem with uncertain prognosis? @ -No Drug Therapy requiring intensive monitoring for toxicity (Heparin, Nitro, Insulin, Cardizem)? @ -No Were any procedures done? @ -No Diagnosis/symptom? @ -Pneumonia Acute, or Chronic, or Acute on Chronic? @ -Acute Uncomplicated (without systemic symptoms) or Complicated (systemic symptoms)? @ -Complicated Side effects of treatment? @ -No Exacerbation, Progression, or Severe Exacerbation? @ -No Poses a threat to life or bodily function? How? (Chest pain, [place], [place], pneumonia, PE, COPD, DKA, ARF, appy, cholecystitis, CVA, Diverticulitis, Homicidal, Carol cidal, threat to staff... and all critical care pts) @ -Yes this can lead to hypoxia and endorgan dysfunction Diagnosis/symptom? @ -COPD exacerbation Acute, or Chronic, or Acute on Chronic? @ -Acute Uncomplicated (without systemic symptoms) or Complicated (systemic symptoms)? @ -Complicated Side effects of treatment? @ -None Exacerbation, Progression, or Severe Exacerbation] @ -No Poses a threat to life or bodily function? @ -Yes this can lead to hypoxia and endorgan dysfunction - Lab Data Result diagrams: 10/17/23 12:44 10/17/23 12:44 Lab Results 10/17/23 10/17/23 10/17/23 Range/Units 12:44 12:44 12:44 WBC 12.9 H (3.8-10.6) k/uL RBC 4.80 (4.30-5.90) m/uL Hgb 14.1 (13.0-17.5) gm/dL Hct 44.3 (39.0-53.0) % MCV 92.2 (80.0-100.0) fL MCH 29.4 (25.0-35.0) pg MCHC 31.9 (31.0-37.0) g/dL RDW 13.3 (11.5-15.5) % Plt Count 159 (150-450) k/uL MPV 7.0 Neutrophils % 88 % Lymphocytes % 5 % Monocytes % 4 % Eosinophils % 2 % Basophils % 0 % Neutrophils # 11.4 H (1.3-7.7) k/uL Lymphocytes # 0.7 L (1.0-4.8) k/uL Monocytes # 0.5 (0-1.0) k/uL Eosinophils # 0.2 (0-0.7) k/uL Basophils # 0.0 (0-0.2) k/uL PT 11.3 (10.0-12.5) sec INR 1.0 (<1.2) APTT 28.5 (22.0-30.0) sec Sodium 139 (137-145) mmol/L Potassium 4.6 (3.5-5.1) mmol/L Chloride 106 (98-107) mmol/L Carbon Dioxide 24 (22-30) mmol/L Anion Gap 9 mmol/L BUN 25 H (9-20) mg/dL Creatinine 0.63 L (0.66-1.25) mg/dL Est GFR (CKD-EPI)AfAm >90 (>60 ml/min/1.73 sqM) Est GFR (CKD-EPI)NonAf >90 (>60 ml/min/1.73 sqM) Glucose 116 H (74-99) mg/dL Plasma Lactic Acid Krishna (0.7-2.0) mmol/L Calcium 8.9 (8.4-10.2) mg/dL Magnesium 1.9 (1.6-2.3) mg/dL Total Bilirubin 1.0 (0.2-1.3) mg/dL AST 31 (17-59) U/L ALT 30 (4-49) U/L Alkaline Phosphatase 100 (38-126) U/L Troponin I (0.000-0.034) ng/mL NT-Pro-B Natriuret Pep 547 pg/mL Total Protein 7.3 (6.3-8.2) g/dL Albumin 4.1 (3.5-5.0) g/dL Urine Color Urine Appearance (Clear) Urine pH (5.0-8.0) Ur Specific [place] (1.001-1.035) Urine Protein (Negative) Urine Glucose (UA) (Negative) Urine Ketones (Negative) Urine Blood (Negative) Urine Nitrite (Negative) Urine Bilirubin (Negative) Urine Urobilinogen (<2.0) mg/dL Ur Leukocyte Esterase (Negative) Influenza Type A (PCR) (Not Detectd) Influenza Type B (PCR) (Not Detectd) RSV (PCR) (Not Detectd) SARS-CoV-2 (PCR) (Not Detectd) 10/17/23 10/17/23 10/17/23 Range/Units 12:44 12:44 12:50 WBC (3.8-10.6) k/uL RBC (4.30-5.90) m/uL Hgb (13.0-17.5) gm/dL Hct (39.0-53.0) % MCV (80.0-100.0) fL MCH (25.0-35.0) pg MCHC (31.0-37.0) g/dL RDW (11.5-15.5) % Plt Count (150-450) k/uL MPV Neutrophils % % Lymphocytes % % Monocytes % % Eosinophils % % Basophils % % Neutrophils # (1.3-7.7) k/uL Lymphocytes # (1.0-4.8) k/uL Monocytes # (0-1.0) k/uL Eosinophils # (0-0.7) k/uL Basophils # (0-0.2) k/uL PT (10.0-12.5) sec INR (<1.2) APTT (22.0-30.0) sec Sodium (137-145) mmol/L Potassium (3.5-5.1) mmol/L Chloride (98-107) mmol/L Carbon Dioxide (22-30) mmol/L Anion Gap mmol/L BUN (9-20) mg/dL Creatinine (0.66-1.25) mg/dL Est GFR (CKD-EPI)AfAm (>60 ml/min/1.73 sqM) Est GFR (CKD-EPI)NonAf (>60 ml/min/1.73 sqM) Glucose (74-99) mg/dL Plasma Lactic Acid Krishna 1.5 (0.7-2.0) mmol/L Calcium (8.4-10.2) mg/dL Magnesium (1.6-2.3) mg/dL Total Bilirubin (0.2-1.3) mg/dL AST (17-59) U/L ALT (4-49) U/L Alkaline Phosphatase (38-126) U/L Troponin I <0.012 (0.000-0.034) ng/mL NT-Pro-B Natriuret Pep pg/mL Total Protein (6.3-8.2) g/dL Albumin (3.5-5.0) g/dL Urine Color Urine Appearance (Clear) Urine pH (5.0-8.0) Ur Specific [place] (1.001-1.035) Urine Protein (Negative) Urine Glucose (UA) (Negative) Urine Ketones (Negative) Urine Blood (Negative) Urine Nitrite (Negative) Urine Bilirubin (Negative) Urine Urobilinogen (<2.0) mg/dL Ur Leukocyte Esterase (Negative) Influenza Type A (PCR) Not Detected (Not Detectd) Influenza Type B (PCR) Not Detected (Not Detectd) RSV (PCR) Not Detected (Not Detectd) SARS-CoV-2 (PCR) Not Detected (Not Detectd) 10/17/23 Range/Units 13:35 WBC (3.8-10.6) k/uL RBC (4.30-5.90) m/uL Hgb (13.0-17.5) gm/dL Hct (39.0-53.0) % MCV (80.0-100.0) fL MCH (25.0-35.0) pg MCHC (31.0-37.0) g/dL RDW (11.5-15.5) % Plt Count (150-450) k/uL MPV Neutrophils % % Lymphocytes % % Monocytes % % Eosinophils % % Basophils % % Neutrophils # (1.3-7.7) k/uL Lymphocytes # (1.0-4.8) k/uL Monocytes # (0-1.0) k/uL Eosinophils # (0-0.7) k/uL Basophils # (0-0.2) k/uL PT (10.0-12.5) sec INR (<1.2) APTT (22.0-30.0) sec Sodium (137-145) mmol/L Potassium (3.5-5.1) mmol/L Chloride (98-107) mmol/L Carbon Dioxide (22-30) mmol/L Anion Gap mmol/L BUN (9-20) mg/dL Creatinine (0.66-1.25) mg/dL Est GFR (CKD-EPI)AfAm (>60 ml/min/1.73 sqM) Est GFR (CKD-EPI)NonAf (>60 ml/min/1.73 sqM) Glucose (74-99) mg/dL Plasma Lactic Acid Krishna (0.7-2.0) mmol/L Calcium (8.4-10.2) mg/dL Magnesium (1.6-2.3) mg/dL Total Bilirubin (0.2-1.3) mg/dL AST (17-59) U/L ALT (4-49) U/L Alkaline Phosphatase (38-126) U/L Troponin I (0.000-0.034) ng/mL NT-Pro-B Natriuret Pep pg/mL Total Protein (6.3-8.2) g/dL Albumin (3.5-5.0) g/dL Urine Color Yellow Urine Appearance Clear (Clear) Urine pH 5.5 (5.0-8.0) Ur Specific [place] 1.035 (1.001-1.035) Urine Protein Trace H (Negative) Urine Glucose (UA) Negative (Negative) Urine Ketones Negative (Negative) Urine Blood Negative (Negative) Urine Nitrite Negative (Negative) Urine Bilirubin Negative (Negative) Urine Urobilinogen <2.0 (<2.0) mg/dL Ur Leukocyte Esterase Negative (Negative) Influenza Type A (PCR) (Not Detectd) Influenza Type B (PCR) (Not Detectd) RSV (PCR) (Not Detectd) SARS-CoV-2 (PCR) (Not Detectd) Critical Care Time Critical Care Time: Yes Total Critical Care Time: 35 Disposition Clinical Impression: Pneumonia, Acute exacerbation of chronic obstructive pulmonary disease Disposition: ADMITTED IP TO THIS HOSP Referrals: Stewart Ramos MD [Primary Care Provider] - 1-2 days Time of Disposition: 14:22
[2023-10-17] MEDS: IBUPROFEN 600 MG TAB PO STA (12:33)
[2023-10-17] MEDS: ACETAMINOPHEN TAB 500 MG TAB PO STA (12:33)
[2023-10-17 12:58] LABS: Basophils % (A) 0 %; Eosinophils # (A) 0.2 k/uL (0-0.7); Eosinophils % (A) 2 %; HCT 44.3 % (39.0-53.0); HGB 14.1 gm/dL (13.0-17.5); Lymphocytes # (A) 0.7 k/uL (1.0-4.8); Lymphocytes % (A) 5 %; MCH 29.4 pg (25.0-35.0); MCHC 31.9 g/dL (31.0-37.0); MCV 92.2 fL (80.0-100.0); Monocytes # (A) 0.5 k/uL (0-1.0); Monocytes % (A) 4 %; Neutrophils # (A) 11.4 k/uL (1.3-7.7); Neutrophils % (A) 88 %; Platelet Count 159 k/uL (150-450); RDW 13.3 % (11.5-15.5); WBC 12.9 k/uL (3.8-10.6)
[2023-10-17 13:07] LABS: ALT 30 U/L (4-49); AST 31 U/L (17-59); African American GFR (CKD) >90 (>60 ml/min/1.73 sqM); Albumin 4.1 g/dL (3.5-5.0); Alkaline Phosphatase 100 U/L (38-126); Anion Gap 9 mmol/L; Blood Urea Nitrogen 25 mg/dL (9-20); Calcium 8.9 mg/dL (8.4-10.2); Carbon Dioxide 24 mmol/L (22-30); Chloride 106 mmol/L (98-107); Glucose 116 mg/dL (74-99); Magnesium 1.9 mg/dL (1.6-2.3); Non-African American GFR(CKD) >90 (>60 ml/min/1.73 sqM); Potassium 4.6 mmol/L (3.5-5.1); Sodium 139 mmol/L (137-145); Total Protein 7.3 g/dL (6.3-8.2)
[2023-10-17] MEDS: IPRATROPIUM-ALBUTEROL 3 ML NEB INHALATION STA (13:09)
[2023-10-17 13:10] LABS: Partial Thromboplastin Time 28.5 sec (22.0-30.0); Prothrombin Time 11.3 sec (10.0-12.5)
--- NOTE | 2023-10-17 13:12 | XR ---
EXAMINATION TYPE: XR chest 2V DATE OF EXAM: 10/17/2023 COMPARISON: 03/15/2022 TECHNIQUE: PA and lateral views submitted. HISTORY: Difficulty in breathing FINDINGS: The lungs are clear and there is no pneumothorax, pleural effusion, or focal pneumonia. Heart size normal and no overt failure. Osseous structures demonstrate hypertrophic and degenerative changes of the spine. Coarsened interstitium. Severe shoulder arthropathy. Underlying COPD. Persistent nodular d ensities left upper lobe likely related to pleural plaque. Post aortic valve surgery. Mild wedge defo rmities thoracolumbar junction appear chronic. IMPRESSION: 1. Interstitium appears increased from the prior exam. Differential diagnosis includes interstitial p neumonitis or mild venous congestion superimposed on a background of COPD. 2. 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
[2023-10-17 13:15] LABS: NT-Pro-B-Type Natriuretic Pept 547 pg/mL
[2023-10-17 14:05] LABS: Appearance,Urine Clear (Clear); Bilirubin,Urine Negative (Negative); Blood,Urine Negative (Negative); Color,Urine Yellow; Glucose,Urine (UA) Negative (Negative); Ketones,Urine Negative (Negative); Leukocyte Esterase,Urine Negative (Negative); Nitrite,Urine Negative (Negative); PH, Urine 5.5 (5.0-8.0); Protein,Urine Trace (Negative); Specific Gravity,Urine 1.035 (1.001-1.035); Urobilinogen,Urine <2.0 mg/dL (<2.0)
[2023-10-17] MEDS ORDERED: PNEUMONIA PROTOCOL UTILIZED 1 EACH MISC PO PRN (14:23)
[2023-10-17] MEDS: methylPREDNISolone SOD SUCCI 125 MG/2 ML VIAL IV STA (14:56)
[2023-10-17] MEDS: cefTRIAXone IN SWFI 1,000 MG/10 ML SYRINGE IVP STA (15:00)
[2023-10-17] MEDS: AZITHROMYCIN 500 MG in SODIUM CHLORIDE 0.9% 250 ML IVPB STA (15:04)
[2023-10-17] MEDS: IPRATROPIUM-ALBUTEROL 3 ML NEB INHALATION SCH (15:13)
[2023-10-17] MEDS: HYDROcodone/APAP 10-325MG 1 EACH TAB PO SCH (17:40)
[2023-10-17] MEDS: methylPREDNISolone SOD SUCCI 125 MG/2 ML VIAL IV SCH (20:34)
[2023-10-17] MEDS: GABAPENTIN 400 MG CAP PO PRN (22:17)
[2023-10-17] MEDS: rOPINIRole HCL 4 MG TABLET PO SCH (22:17)
[2023-10-17] MEDS: METOPROLOL TARTRATE 25 MG TAB PO SCH (22:17)
[2023-10-17] MEDS: PRAMIPEXOLE 0.5 MG TAB PO SCH (22:17)
[2023-10-17] MEDS: MELATONIN 5 MG TABLET PO SCH (22:18)
[2023-10-17] MEDS: diphenhydrAMINE 50 MG CAP PO PRN (22:37)
--- NOTE | 2023-10-17 23:32 | P.HPIM ---
History of Present Illness H&P Date: 10/17/23 Chief Complaint: Shortness of breath Patient is a 78-year-old male with a past medical history of hypertension, hyperlipidemia, history of aortic valve stenosis status post TAVR in 2021, osteoarthritis, GERD, RLS, prior history of smoking presents to ER with complaints of worsening difficulty breathing since morning. Patient states that he has been having cough for the past couple days. When he got up from bed he started coughing this morning started having shortness of breath. Patient states that he did have subjective fevers and no chills at home. Denies any chest pain. No palpitations. No nausea vomiting abdominal pain or diarrhea. Denies any dizziness or lightheadedness. Patient has been falling asleep and feeling tired since morning according to his . Chest x-ray showed interstitial appears to be increased from the prior exam. Differential diagnosis include interstitial pneumonitis mild venous congestion superimposed on a background of COPD. Pleural plaques correlate for inhalation/asbestos related disease. EKG showed sinus rhythm with occasional ventricular premature complexes. Laboratory data showed WBC 12.9 hemoglobin 14.1, platelets 159, sodium 139 potassium 4.6 chloride 106 bicarb 24 BUN 25 and creatinine 0.63 and blood sugar 116 and magnesium 1.9. Liver radiographs are not elevated. proBNP 547 Urinalysis is negative for infection Influenza AB and RSV and COVID-19 PCR not detected. Patient was given a dose of ceftriaxone and azithromycin in the ER. Patient was febrile with Tmax 100.8 on admission Review of Systems Constitutional: Patient does have fever. No chills. Positive for generalized w eakness. No weight loss. Abdomen: Patient denied nausea vomiting and diarrhea and abdominal pain. Cardiovascular: Patient denies any chest pain. Does have short of breath no palpitations. No leg swelling Respiratory: patient cough without portable production. Patient does have shortness of breath Neurologic: Patient denied any numbness or tingling headache. Musculoskeletal: Patient denies any complaints of joint swelling or deformity. Skin: Negative Psychiatric: Negative Endocrine: No heat or cold intolerance. No recent weight gain. Genitourinary: No dysuria or hematuria. All other 14 point ROS negative except the above Past Medical History Past Medical History: Heart Failure, GERD/Reflux, Hyperlipidemia, Hypertension, Musculoskeletal Disorder, Osteoarthritis (OA) Additional Past Medical History / Comment(s): esophageal constriction in the past, aortic valve stenosis, RLS, past hx. of compression fx. in back after a fall, chronic back pain, dry cough - has seen Dr. Monson recently History of Any Multi-Drug Resistant Organisms: None Reported Past Surgical History: Cardiac Valve Replacement, Heart Catheterization Additional Past Surgical History / Comment(s): colonoscopy, EGD, МАРИНА, transcatheter aortic valve replacement completed 01/06/22 Past Anesthesia/Blood Transfusion Reactions: No Reported Reaction Past Psychological History: No Psychological Hx Reported Smoking Status: Former smoker Past Alcohol Use History: Occasional Additional Past Alcohol Use History / Comment(s): quit smoking 40 yrs. ago, smoked for 20 yrs. <1/2ppd Past Drug Use History: None Reported - Past Family History Mother Family Medical History: No Reported History, Hypertension Father Family Medical History: No Reported History, Hypertension Medications and Allergies Home Medications Medication Instructions Recorded Confirmed Type Aspirin EC [Ecotrin Low Dose] 81 mg PO DAILY 11/02/21 10/17/23 History Ezetimibe [Zetia] 10 mg PO DAILY 11/02/21 10/17/23 History Gabapentin [Neurontin] 400 mg PO TID PRN 11/02/21 10/17/23 History HYDROcodone/APAP 10-325MG [[place] 1 tab PO QID 11/02/21 10/17/23 History 10-325] Lansoprazole 30 mg PO DAILY 11/02/21 10/17/23 History Meloxicam [Mobic] 15 mg PO DAILY 11/02/21 10/17/23 History Metoprolol Tartrate [Lopressor] 25 mg PO BID 11/02/21 10/17/23 History lisinopriL [Zestril] 20 mg PO DAILY 11/02/21 10/17/23 History modafiniL [Provigil] 200 mg PO DAILY 11/02/21 10/17/23 History rOPINIRole HCL [Requip] 4 mg PO BID 11/02/21 10/17/23 History Pramipexole [Mirapex] 0.5 mg PO HS 11/17/21 10/17/23 History Melatonin 20 mg PO HS 10/17/23 10/17/23 History Metoclopramide [Reglan] 5 mg PO DAILY 10/17/23 10/17/23 History Rosuvastatin [Crestor] 10 mg PO DAILY 10/17/23 10/17/23 History diphenhydrAMINE [Benadryl] 50 mg PO HS PRN 10/17/23 10/17/23 History Allergies Allergy/AdvReac Type Severity Reaction Status Date / Time No Known Allergies Allergy Verified 10/17/23 14:22 Physical Exam Vitals: Vital Signs Temp Pulse Pulse Resp BP BP Pulse Ox 10/17/23 19:43 98.7 F 82 16 126/71 93 L 10/17/23 19:20 77 10/17/23 19:12 71 10/17/23 16:50 98.8 F 71 17 113/73 90 L 10/17/23 15:00 98.8 F 80 18 104/64 94 L 10/17/23 14:30 83 16 104/56 91 L 10/17/23 13:30 28 H 102/71 10/17/23 13:22 82 10/17/23 13:12 81 10/17/23 13:00 89 19 95/81 92 L 10/17/23 12:46 90 18 95/81 91 L 10/17/23 12:30 92 24 138/79 10/17/23 12:08 101 H 23 10/17/23 11:52 100.8 F H 99 22 186/80 93 L Intake and Output 10/17/23 10/17/23 10/17/23 06:59 14:59 22:59 Other: # Voids 3 Weight 79.379 kg 79.379 kg PHYSICAL EXAMINATION: Patient is lying in the bed comfortably, no acute distress, awake alert and oriented.. HEENT: Normocephalic. Neck is supple. Pupils reactive. Nostrils clear. Oral cavity is moist. Neck reveals no JVD, carotid bruits, or thyromegaly. CHEST EXAMINATION: Trachea is central. Symmetrical expansion. Bilateral expiratory wheezing and scattered rhonchi. Nonlabored breathing.. CARDIAC: Normal S1, S2 with no gallops. No murmurs ABDOMEN: Soft. Bowel sounds normal. No organomegaly. No abdominal bruits. Extremities: reveal no edema. No clubbing or cyanosis Neurologically awake, alert, oriented x 2-3 with well-coordinated movements. No gross focal deficits noted Skin: No rash or skin lesions. Psychiatric: Coperative. Nonsuicidal Musculoskeletal: No joint swelling or deformity. Normal range of motion. Results CBC & Chem 7: 03/18/24 12:44 10/17/23 12:44 Labs: Abnormal Lab Results - Last 24 Hours (Table) 10/17/23 10/17/23 10/17/23 Range/Units 12:44 12:44 13:35 WBC 12.9 H (3.8-10.6) k/uL Neutrophils # 11.4 H (1.3-7.7) k/uL Lymphocytes # 0.7 L (1.0-4.8) k/uL BUN 25 H (9-20) mg/dL Creatinine 0.63 L (0.66-1.25) mg/dL Glucose 116 H (74-99) mg/dL Urine Protein Trace H (Negative) Thrombosis Risk Factor Assmnt - DVT/VTE Prophylaxis DVT/VTE Prophylaxis: Pharmacologic Prophylaxis ordered - Choose All That Apply Any of the Below Risk Factors Present?: Yes Each Factor Represents 1 point: Abnormal pulmonary function (COPD) Other Risk Factors: Yes Each Risk Factor Represents 3 Points: Age 75 years or older Other congenital or acquired thrombophilia - If yes, enter type in comment: No Thrombosis Risk Factor Assessment Total Risk Factor Score: 4 Thrombosis Risk Factor Assessment Level: Moderate Risk Assessment and Plan Assessment: Acute COPD exacerbation Interstitial pneumonia/pneumonitis Sepsis secondary above Hypertension Hyperlipidemia History of TAVR in 2021 GERD Prior history of smoking Osteoarthritis History of Zenker's diverticulum with moderate esophageal dysmotility as per barium swallow study recently Schatzki's ring s/p balloon dilation on 05/18/2023 Moderate sized hiatal hernia DVT prophylaxis with heparin subcu Plan: Patient will be continued on IV Solu-Medrol and antibiotics ceftriaxone and azithromycin. Continue with DuoNebs. Current with home medications and follow-up repeat chest x-ray. Follow-up procalcitonin level. Follow-up sputum cultures and blood cultures. Time with Patient: Greater than 30
--- NOTE | 2023-10-18 08:29 | XR ---
EXAMINATION TYPE: XR chest 2V DATE OF EXAM: 10/18/2023 COMPARISON: 10/17/2023 TECHNIQUE: PA and lateral views submitted. HISTORY: Shortness of breath FINDINGS: The lungs are clear and there is no pneumothorax, pleural effusion, or focal pneumonia. Heart size no rmal and no overt failure. Osseous structures demonstrate hypertrophic and degenerative changes of th e spine. Coarsened interstitium. Severe shoulder arthropathy. Underlying COPD. Persistent nodular densities left upper lobe likely related to pleural plaque. Post aortic valve surg sree. Mild wedge deformities thoracolumbar junction appear chronic. Patchy right perihilar area of inf iltrate in the differential diagnosis. Follow-up to resolution to exclude underlying neoplasm. Vague 7 mm nodule along the lateral margin of the left lung likely related to pleural plaque. IMPRESSION: 1. Interstitium appears increased. Differential diagnosis includes interstitial pneumonitis or mild v enous congestion superimposed on a background of COPD. 2. 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
[2023-10-18] MEDS: ASPIRIN 81 MG PO SCH (08:58)
[2023-10-18] MEDS: ATORVASTATIN 20 MG TAB PO SCH (08:58)
[2023-10-18] MEDS: PANTOPRAZOLE 40 MG TABLET PO SCH (08:58)
[2023-10-18] MEDS: AZITHROMYCIN 500 MG TAB PO SCH (08:58)
[2023-10-18] MEDS: EZETIMIBE 10 MG TAB PO SCH (08:58)
[2023-10-18 11:20] LABS: Basophils # (A) 0.01 X 10*3/uL (0.00-0.10); Basophils % (A) 0.1 %; Eosinophils # (A) 0 X 10*3/uL (0.04-0.35); Eosinophils % (A) 0 %; HCT 39.3 % (39.6-50.0); HGB 12.2 g/dL (13.0-17.0); Lymphocytes # (A) 0.62 X 10*3/uL (0.90-5.00); Lymphocytes % (A) 3.9 %; MCH 28.8 pg (27.0-32.0); MCV 92.7 FL (80.0-97.0); Mean Platelet Volume 10.1 FL (9.5-12.2); Monocytes % (A) 1.9 %; NRBC Per 100 WBC 0 X 10*3/uL (0.00-0.01); Neutrophils # (A) 14.86 X 10*3/uL (1.80-7.70); Neutrophils % (A) 93.5 %; Platelet Count 185 X 10*3/uL (140-440); RBC 4.24 X 10*6/uL (4.40-5.60); RDW 13.4 % (11.5-14.5); WBC 15.88 X 10*3/uL (4.50-10.00)
[2023-10-18 11:50] LABS: BUN/Creat Ratio 25.78 Ratio (12.00-20.00); Blood Urea Nitrogen 23.2 mg/dL (9.0-27.0); Calcium 8.6 mg/dL (8.7-10.3); Carbon Dioxide 19.8 mmol/L (21.6-31.8); Chloride 106 mmol/L (96-109); Glucose 243 mg/dL (70-110); Potassium 4.5 mmol/L (3.5-5.5); Sodium 139 mmol/L (135-145)
[2023-10-18] MEDS ORDERED: DEXTROSE 50% SYRINGE 50 ML IVP PRN ×2 (22:42)
[2023-10-19 07:30] LABS: Glucose,Whole Blood 159 mg/dL (70-110)
[2023-10-19] MEDS: INSULIN ASPART (NovoLOG) 100 UNIT/ML VIAL SQ SCH (08:55)
--- NOTE | 2023-10-19 10:55 | P.PN ---
Subjective Progress Note Date: 10/18/23 Patient is a 78-year-old male with a past medical history of hypertension, hyperlipidemia, history of aortic valve stenosis status post TAVR in 2021, osteoarthritis, GERD, RLS, prior history of smoking presents to ER with complaints of worsening difficulty breathing since morning. Patient states that he has been having cough for the past couple days. When he got up from bed he started coughing this morning started having shortness of breath. Patient states that he did have subjective fevers and no chills at home. Denies any chest pain. No palpitations. No nausea vomiting abdominal pain or diarrhea. Denies any dizziness or lightheadedness. Patient has been falling asleep and feeling tired since morning according to his . Chest x-ray showed interstitial appears to be increased from the prior exam. Differential diagnosis include interstitial pneumonitis mild venous congestion superimposed on a background of COPD. Pleural plaques correlate for inhalation/asbestos related disease. EKG showed sinus rhythm with occasional ventricular premature complexes. Laboratory data showed WBC 12.9 hemoglobin 14.1, platelets 159, sodium 139 potassium 4.6 chloride 106 bicarb 24 BUN 25 and creatinine 0.63 and blood sugar 116 and magnesium 1.9. Liver radiographs are not elevated. proBNP 547 Urinalysis is negative for infection Influenza AB and RSV and COVID-19 PCR not detected. Patient was given a dose of ceftriaxone and azithromycin in the ER. Patient was febrile with Tmax 100.8 on admission 10/18/2023 Patient is currently sitting on the side of bed. Awake alert and oriented x 3. No complaints of chest pain or worsening shortness of breath. Breathing status is much improved. Patient has been afebrile. Currently on room air. No nausea or vomiting. Otherwise patient did have swallow study done which showed esophageal dysmotility. Zenker's diverticulum. Gastroenterology service was consulted for further evaluation. Otherwise patient is being continued on IV antibiotics and IV steroids will be changed to by mouth. Laboratory data showed WBC went up to 15.8 hemoglobin 12.2 and platelets 185 Sodium 139 potassium 4.5 chloride 106 bicarb is 19.8 BUN 23.20 creatinine 0.9 a nd blood sugar 243. And procalcitonin level was 0.30 Repeat chest x-ray today showed interstitial appears increased. Differential diagnosis including interstitial pneumonitis or mild venous congestion superimposed on background of COPD. No oral plaques correlate for inhalational asbestos-related disease. Current medications reviewed. Objective - Vital Signs Vital signs: Vital Signs Temp 98.0 F 10/18/23 21:56 Pulse 81 10/18/23 21:56 Resp 20 10/18/23 21:56 BP 133/67 10/18/23 21:56 Pulse Ox 95 10/18/23 21:56 FiO2 Intake & Output 10/18/23 10/18/23 10/19/23 06:59 18:59 06:59 Intake Total 240 Balance 240 Intake: Oral 240 Other: # Voids 3 - Exam PHYSICAL EXAMINATION: Patient is lying in the bed comfortably, no acute distress, awake alert and oriented.. HEENT: Normocephalic. Neck is supple. Pupils reactive. Nostrils clear. Oral cavity is moist. Neck reveals no JVD, carotid bruits, or thyromegaly. CHEST EXAMINATION: Trachea is central. Symmetrical expansion. Mild expiratory wheeze. No rhonchi or crackles. Nonlabored breathing.. CARDIAC: Normal S1, S2 with no gallops. No murmurs ABDOMEN: Soft. Bowel sounds normal. No organomegaly. No abdominal bruits. Extremities: reveal no edema. No clubbing or cyanosis Neurologically awake, alert, oriented x3 with well-coordinated movements. No focal deficits noted Skin: No rash or skin lesions. Psychiatric: Coperative. Nonsuicidal Musculoskeletal: No joint swelling or deformity. Normal range of motion. - Labs CBC & Chem 7: 10/18/23 07:02 10/18/23 07:02 Labs: Abnormal Lab Results - Last 24 Hours (Table) 10/18/23 10/18/23 10/18/23 Range/Units 07:02 07:02 07:02 WBC 15.88 H (4.50-10.00) X 10*3/uL RBC 4.24 L (4.40-5.60) X 10*6/uL Hgb 12.2 L (13.0-17.0) g/dL Hct 39.3 L (39.6-50.0) % MCHC 31.0 L (32.0-37.0) g/dL Immature Gran # 0.09 H (0.00-0.04) X 10*3/uL Neutrophils # 14.86 H (1.80-7.70) X 10*3/uL Lymphocytes # 0.62 L (0.90-5.00) X 10*3/uL Eosinophils # 0 L (0.04-0.35) X 10*3/uL Carbon Dioxide 19.8 L (21.6-31.8) mmol/L Anion Gap 13.20 H (4.00-12.00) mmol/L BUN/Creatinine Ratio 25.78 H (12.00-20.00) Ratio Glucose 243 H (70-110) mg/dL Calcium 8.6 L (8.7-10.3) mg/dL Procalcitonin 0.30 H (0.02-0.09) ng/mL Microbiology - Last 24 Hours (Table) 10/17/23 14:53 Blood Culture - Preliminary Blood 10/17/23 12:44 Blood Culture - Preliminary Blood Assessment and Plan Assessment: Acute COPD exacerbation Interstitial pneumonia/pneumonitis Sepsis secondary above Zenker's diverticulum with moderate esophageal dysmotility as per barium swallow study recently Schatzki's ring s/p balloon dilation on 05/18/2023 Hypertension Hyperlipidemia History of TAVR in 2021 GERD Prior history of smoking Osteoarthritis Moderate sized hiatal hernia DVT prophylaxis with heparin subcu Plan: Patient will be continued on IV Solu-Medrol and antibiotics ceftriaxone and azithromycin. Continue with DuoNebs. Procalcitonin level is elevated. Follow- up repeat BMP and CBC. Gastroenterology consult due to esophageal dysmotility. Current with home medications and follow-up repeat chest x-ray. Follow-up sputum cultures and blood cultures.
[2023-10-19 11:51] LABS: Basophils # (A) 0 X 10*3/uL (0.00-0.10); Basophils % (A) 0 %; Eosinophils # (A) 0 X 10*3/uL (0.04-0.35); Eosinophils % (A) 0 %; HCT 36.9 % (39.6-50.0); HGB 11.8 g/dL (13.0-17.0); Lymphocytes # (A) 0.63 X 10*3/uL (0.90-5.00); Lymphocytes % (A) 4.2 %; MCH 29.1 pg (27.0-32.0); MCV 91.1 FL (80.0-97.0); Mean Platelet Volume 10.1 FL (9.5-12.2); Monocytes # (A) 0.46 X 10*3/uL (0.20-1.00); Monocytes % (A) 3.1 %; NRBC Per 100 WBC 0 X 10*3/uL (0.00-0.01); Neutrophils # (A) 13.69 X 10*3/uL (1.80-7.70); Platelet Count 183 X 10*3/uL (140-440); RBC 4.05 X 10*6/uL (4.40-5.60); RDW 13.4 % (11.5-14.5); WBC 14.88 X 10*3/uL (4.50-10.00)
[2023-10-19 12:05] LABS: Glucose,Whole Blood 236 mg/dL (70-110)
--- NOTE | 2023-10-19 12:09 | P.CONS ---
History of Present Illness - Reason for Consult Consult date: 10/19/23 Esophageal dysmotility Requesting physician: Narendra Parada - Chief Complaint Shortness of breath, weakness - History of Present Illness Pleasant 78-year-old male with a history of heart failure, GERD, hyperlipidemia, hypertension, and osteoarthritis who presented to the emergency department with complaints of shortness of breath and weakness. He also has a history of dysphagia and esophageal constriction from a Schatzki's ring. Patient was admitted for pneumonia. Pulm gastroenterology was consulted for esophageal dysmotility. Patient sitting up at the bedside eating a regular diet without any difficulty swallowing. He does state that he has been getting some acid reflux a little bit more often and feels that he gets some burning related to it. He takes lansoprazole 30 mg daily at home. Last EGD was with Dr. Moe on 05/18/2023 with findings of Schatzki ring status post dilation. Review of Systems REVIEW OF SYSTEMS: CARDIOPULMONARY: No chest pain. Shortness of breath and cough. Gastrointestinal: No abdominal pain. Patient with complaints of acid reflux. No difficulty swallowing. No nausea or vomiting. No hematemesis, coffee- ground emesis. No rectal bleeding, or melena. GENITOURINARY: No dysuria or hematuria. MUSCULOSKELETAL: Reports normal range of motion., Joint pain. SKIN: No rashes. No jaundice. ENDOCRINE: No chills, fevers. No excessive weight gain or loss. No polydipsia or polyuria. PSYCHIATRIC: Unremarkable. NEUROLOGY: No change in mental status. Denies dizziness, headache. ENT: Vision unremarkable. CONSTITUTIONAL: No recent weight loss. No fever, chills, night sweats. Past Medical History Past Medical History: Heart Failure, GERD/Reflux, Hyperlipidemia, Hypertension, Musculoskeletal Disorder, Osteoarthritis (OA) Additional Past Medical History / Comment(s): esophageal constriction in the past, aortic valve stenosis, RLS, past hx. of compression fx. in back after a fall, chronic back pain, dry cough - has seen Dr. Monson recently History of Any Multi-Drug Resistant Organisms: None Reported Past Surgical History: Cardiac Valve Replacement, Heart Catheterization Additional Past Surgical History / Comment(s): colonoscopy, EGD, МАРИНА, transc atheter aortic valve replacement completed 01/06/22 Past Anesthesia/Blood Transfusion Reactions: No Reported Reaction Past Psychological History: No Psychological Hx Reported Smoking Status: Former smoker Past Alcohol Use History: Occasional Additional Past Alcohol Use History / Comment(s): quit smoking 40 yrs. ago, smoked for 20 yrs. <1/2ppd Past Drug Use History: None Reported - Past Family History Mother Family Medical History: No Reported History, Hypertension Father Family Medical History: No Reported History, Hypertension Medications and Allergies Home Medications Medication Instructions Recorded Confirmed Type Aspirin EC [Ecotrin Low Dose] 81 mg PO DAILY 11/02/21 10/17/23 History Ezetimibe [Zetia] 10 mg PO DAILY 11/02/21 10/17/23 History Gabapentin [Neurontin] 400 mg PO TID PRN 11/02/21 10/17/23 History HYDROcodone/APAP 10-325MG [[place] 1 tab PO QID 11/02/21 10/17/23 History 10-325] Lansoprazole 30 mg PO DAILY 11/02/21 10/17/23 History Meloxicam [Mobic] 15 mg PO DAILY 11/02/21 10/17/23 History Metoprolol Tartrate [Lopressor] 25 mg PO BID 11/02/21 10/17/23 History lisinopriL [Zestril] 20 mg PO DAILY 11/02/21 10/17/23 History modafiniL [Provigil] 200 mg PO DAILY 11/02/21 10/17/23 History rOPINIRole HCL [Requip] 4 mg PO BID 11/02/21 10/17/23 History Pramipexole [Mirapex] 0.5 mg PO HS 11/17/21 10/17/23 History Melatonin 20 mg PO HS 10/17/23 10/17/23 History Metoclopramide [Reglan] 5 mg PO DAILY 10/17/23 10/17/23 History Rosuvastatin [Crestor] 10 mg PO DAILY 10/17/23 10/17/23 History diphenhydrAMINE [Benadryl] 50 mg PO HS PRN 10/17/23 10/17/23 History Allergies Allergy/AdvReac Type Severity Reaction Status Date / Time No Known Allergies Allergy Verified 10/17/23 14:22 Physical Exam Vitals: Vital Signs Temp Pulse Pulse Pulse Resp BP BP 10/19/23 01:39 98.0 F 84 16 132/57 10/18/23 21:56 98.0 F 81 20 133/67 10/18/23 20:11 68 20 10/18/23 20:05 66 10/18/23 19:54 98.1 F 68 20 120/62 10/18/23 19:52 65 10/18/23 16:33 62 10/18/23 16:23 63 10/18/23 12:57 98.1 F 80 75 16 121/67 10/18/23 12:49 75 10/18/23 10:14 79 10/18/23 10:05 80 Pulse Ox 10/19/23 01:39 97 10/18/23 21:56 95 10/18/23 20:11 10/18/23 20:05 10/18/23 19:54 94 L 10/18/23 19:52 10/18/23 16:33 10/18/23 16:23 10/18/23 12:57 94 L 10/18/23 12:49 10/18/23 10:14 10/18/23 10:05 94 L Intake and Output 10/18/23 10/19/23 10/19/23 22:59 06:59 14:59 Other: # Voids 1 # Bowel Movements 0 General appearance: The patient is alert, oriented, appears in no acute distress. HET: Head is normocephalic and atraumatic. Conjunctiva pink. Sclera anicteric. Neck: Supple without lymphadenopathy. Trachea midline. Heart: Regular. Lungs: Equal expansion, normal respiratory effort. Abdomen: Soft, nontender, nondistended with bowel sounds. No guarding or rigidity. Skin: No rashes. No jaundice. Extremities: Normal skin color and turgor. No pedal edema. Neurological: No focal deficits. Alert and oriented x3. Results CBC & Chem 7: 10/19/23 06:57 10/18/23 07:02 Labs: Abnormal Lab Results - Last 24 Hours (Table) 10/18/23 10/18/23 10/18/23 Range/Units 07:02 07:02 07:02 WBC 15.88 H (4.50-10.00) X 10*3/uL RBC 4.24 L (4.40-5.60) X 10*6/uL Hgb 12.2 L (13.0-17.0) g/dL Hct 39.3 L (39.6-50.0) % MCHC 31.0 L (32.0-37.0) g/dL Immature Gran # 0.09 H (0.00-0.04) X 10*3/uL Neutrophils # 14.86 H (1.80-7.70) X 10*3/uL Lymphocytes # 0.62 L (0.90-5.00) X 10*3/uL Eosinophils # 0 L (0.04-0.35) X 10*3/uL Carbon Dioxide 19.8 L (21.6-31.8) mmol/L Anion Gap 13.20 H (4.00-12.00) mmol/L BUN/Creatinine Ratio 25.78 H (12.00-20.00) Ratio Glucose 243 H (70-110) mg/dL POC Glucose (mg/dL) (70-110) mg/dL Calcium 8.6 L (8.7-10.3) mg/dL Procalcitonin 0.30 H (0.02-0.09) ng/mL 10/19/23 Range/Units 07:29 WBC (4.50-10.00) X 10*3/uL RBC (4.40-5.60) X 10*6/uL Hgb (13.0-17.0) g/dL Hct (39.6-50.0) % MCHC (32.0-37.0) g/dL Immature Gran # (0.00-0.04) X 10*3/uL Neutrophils # (1.80-7.70) X 10*3/uL Lymphocytes # (0.90-5.00) X 10*3/uL Eosinophils # (0.04-0.35) X 10*3/uL Carbon Dioxide (21.6-31.8) mmol/L Anion Gap (4.00-12.00) mmol/L BUN/Creatinine Ratio (12.00-20.00) Ratio Glucose (70-110) mg/dL POC Glucose (mg/dL) 159 H (70-110) mg/dL Calcium (8.7-10.3) mg/dL Procalcitonin (0.02-0.09) ng/mL Microbiology - Last 24 Hours (Table) 10/17/23 14:53 Blood Culture - Preliminary Blood 10/17/23 12:44 Blood Culture - Preliminary Blood Comments: Chest x-ray reports interstitial appearance increased. Differential diagnosis includes interstitial pneumonitis or mild venous congestion superimposed on background of COPD. Pleural plaques correlate for inhalation asbestos related disease. Assessment and Plan (1) GERD (gastroesophageal reflux disease) Narrative/Plan: 78-year-old male presenting for shortness of breath and cough admitted for pneumonia. He has a history of esophageal stricture related to a Schatzki's ring which was dilated back in May 2023. He further complains of acid reflux however no difficulty swallowing. Patient is sitting up eating his breakfast without any difficulty. Likely dealing with some underlying acid reflux. Will increase lansoprazole to twice a day, Protonix 40 mg twice daily while in the hospital. No plans for endoscopic evaluation at this time. Patient can follow-up as an outpatient if symptoms persist. Current Visit: Yes Status: Acute Code(s): K21.9 - GASTRO-ESOPHAGEAL REFLUX DISEASE WITHOUT ESOPHAGITIS SNOMED Code(s): 159641154 (2) COPD (chronic obstructive pulmonary disease) Current Visit: Yes Status: Acute Code(s): J44.9 - CHRONIC OBSTRUCTIVE PULMONARY DISEASE, UNSPECIFIED SNOMED Code(s): 92308933 (3) Pneumonia Current Visit: Yes Status: Acute Code(s): J18.9 - PNEUMONIA, UNSPECIFIED ORGANISM SNOMED Code(s): 821208130 Plan: 1. Continue symptomatic and supportive care 2. Increase Protonix to 40 mg twice daily 3. Discussed with patient to increase lansoprazole 30 mg daily to twice a day on discharge 4. Acid reflux precautions 5. No plans for any endoscopic evaluation and no further workup at this time Thank you for this consultation, we will sign off at this time. Patient can follow-up in the outpatient setting. Dr. Edson Moe I agree with the dictator's note, documented as a scribe by Angelita Pena.
[2023-10-19 12:13] LABS: BUN/Creat Ratio 30.88 Ratio (12.00-20.00); Blood Urea Nitrogen 24.7 mg/dL (9.0-27.0); Calcium 8.6 mg/dL (8.7-10.3); Carbon Dioxide 23.9 mmol/L (21.6-31.8); Chloride 105 mmol/L (96-109); Glucose 177 mg/dL (70-110); Potassium 4.4 mmol/L (3.5-5.5); Sodium 139 mmol/L (135-145)
[2023-10-19] MEDS: predniSONE 20 MG TAB PO SCH (12:44)
[2023-10-19 15:46] VITALS: BP 181/72; PULSE 63; RESP 16; TEMP 98.2
[2023-10-19] MEDS ORDERED: PANTOPRAZOLE 40 MG TABLET PO SCH (17:30)
--- NOTE | 2023-10-22 10:42 | P.DS ---
Providers Date of admission: 10/17/23 14:23 Expected date of discharge: 10/19/23 Attending physician: Narendra Parada Primary care physician: Stewart Ramos Hospital Course: Final diagnosis Acute COPD exacerbation Interstitial pneumonia/pneumonitis Sepsis secondary above Hypertension Hyperlipidemia History of TAVR in 2021 GERD Prior history of smoking Osteoarthritis History of Zenker's diverticulum with moderate esophageal dysmotility as per barium swallow study recently Schatzki's ring s/p balloon dilation on 05/18/2023 Moderate sized hiatal hernia DVT prophylaxis with heparin subcu Discharge disposition Patient is being discharged in a stable condition with guarded prognosis to home. Patient will follow-up with Dr. Ramos in the outpatient setting upon discharge. Patient is to continue with oral Ceftin on discharge and outpatient follow-up with pulmonary as well as GI as needed. Total time taken is greater than 35 minutes. Hospital course This is a 78-year-old male who was recently admitted with shortness of breath increased coughing and COPD exacerbation. Patient also with features of sepsis secondary to interstitial pneumonia/pneumonitis. Patient on antibiotics showing improvements clinically and reports to feeling improved. Patient also evaluated by GI with concerns of esophageal dysmotility and had recent dilatation with Dr. Moe previously. Patient will be following up scheduled appointment with no immediate plans for repeat dilation today. Patient will continue on oral ceftin for 1 week on discharge. Patient has been instructed to follow-up with pulmonary along with primary care provider on discharge. Currently no reports of chest pain, shortness of breath, or palpitations. Patient is afebrile. No reports of nausea or vomiting and patient is tolerating diet. Patient will be discharged home today. Guarded prognosis. Physical exam: Gen: This is a 78-year-old male who is awake, alert and oriented x 3, well- developed, well-nourished, obese HEENT: Head is atraumatic, normocephalic. Pupils equal, round. Sclerae is anicteric. NECK: Supple. No JVD. No lymphadenopathy. No thyromegaly. LUNGS: Diminished breath sounds bilaterally otherwise clear to auscultation. No wheezes or rhonchi. No intercostal retractions. HEART: Regular rate and rhythm. No murmur. ABDOMEN: Soft. Bowel sounds are present. No masses. No tenderness. EXTREMITIES: No pedal edema. No calf tenderness. NEUROLOGICAL: Patient is awake, alert and oriented x3. Cranial nerves 2 through 12 are grossly intact. Please refer to medication reconciliation sheet for a list of medications. The impression and plan of care has been dictated by Carla Shipley, Nurse Practitioner as directed. Dr. Tal MD I have performed a history and examination and MDM of this patient, discussed the same with the dictator, and agree with the dictator's assessment and plan as written ,documented as a scribe. Based on total visit time, I have performed more than 50% of the visit. Patient Condition at Discharge: Fair Plan - Discharge Summary New Discharge Prescriptions: New cefUROXime axetiL [Ceftin] 500 mg PO BID 7 Days #14 tab predniSONE 10 mg PO DIRECTED #30 tab Albuterol Inhaler [Ventolin Hfa Inhaler] 2 puff INHALATION Q6H PRN 30 Days #1 each PRN Reason: Shortness Of Breath Continue rOPINIRole HCL [Requip] 4 mg PO BID modafiniL [Provigil] 200 mg PO DAILY lisinopriL [Zestril] 20 mg PO DAILY Metoprolol Tartrate [Lopressor] 25 mg PO BID Meloxicam [Mobic] 15 mg PO DAILY Aspirin EC [Ecotrin Low Dose] 81 mg PO DAILY Lansoprazole 30 mg PO DAILY HYDROcodone/APAP 10-325MG [[place] 10-325] 1 tab PO QID Gabapentin [Neurontin] 400 mg PO TID PRN PRN Reason: Pain Pramipexole [Mirapex] 0.5 mg PO HS Metoclopramide [Reglan] 5 mg PO DAILY Rosuvastatin [Crestor] 10 mg PO DAILY diphenhydrAMINE [Benadryl] 50 mg PO HS PRN PRN Reason: Insomnia Melatonin 20 mg PO HS Ezetimibe [Zetia] 10 mg PO DAILY Discharge Medication List Aspirin EC [Ecotrin Low Dose] 81 mg PO DAILY 11/02/21 [History] Ezetimibe [Zetia] 10 mg PO DAILY 11/02/21 [History] Gabapentin [Neurontin] 400 mg PO TID PRN 11/02/21 [History] HYDROcodone/APAP 10-325MG [[place] 10-325] 1 tab PO QID 11/02/21 [History] Lansoprazole 30 mg PO DAILY 11/02/21 [History] Meloxicam [Mobic] 15 mg PO DAILY 11/02/21 [History] Metoprolol Tartrate [Lopressor] 25 mg PO BID 11/02/21 [History] lisinopriL [Zestril] 20 mg PO DAILY 11/02/21 [History] modafiniL [Provigil] 200 mg PO DAILY 11/02/21 [History] rOPINIRole HCL [Requip] 4 mg PO BID 11/02/21 [History] Pramipexole [Mirapex] 0.5 mg PO HS 11/17/21 [History] Melatonin 20 mg PO HS 10/17/23 [History] Metoclopramide [Reglan] 5 mg PO DAILY 10/17/23 [History] Rosuvastatin [Crestor] 10 mg PO DAILY 10/17/23 [History] diphenhydrAMINE [Benadryl] 50 mg PO HS PRN 10/17/23 [History] Albuterol Inhaler [Ventolin Hfa Inhaler] 2 puff INHALATION Q6H PRN 30 Days #1 each 10/19/23 [Rx] cefUROXime axetiL [Ceftin] 500 mg PO BID 7 Days #14 tab 10/19/23 [Rx] predniSONE 10 mg PO DIRECTED #30 tab 10/19/23 [Rx] Follow up Appointment(s)/Referral(s): Stewart Ramos MD [Primary Care Provider] - 1-2 days (The office states you are not a patient at this office please call your PCP and make a follow up appointment.) Adela Moe MD [STAFF PHYSICIAN] - 4 Weeks (The office was not available to make appointment please call and schedule follow up.) Patient Instructions/Handouts: Cefuroxime (By mouth), Albuterol (By breathing), Prednisone (By mouth), GERD (Gastroesophageal Reflux Disease) (DC) Activity/Diet/Wound Care/Special Instructions: Activity limited until follow-up Follow-up with primary care provider on discharge Continue with medications as prescribed Follow-up with GI outpatient as needed and keep your scheduled appointment in December as discussed Discharge Disposition: HOME SELF-CARE
== END 2023-10-19 16:23 | disposition home or self-care (01) | DRG 871 ==
LOC: EC 11:49 → 5NMEDONC 14:23
PROVIDERS: ADMIT Internal Medicine; ATTEND Internal Medicine
DX: A41.9 Sepsis, unspecified organism (principal); J18.9 Pneumonia, unspecified organism; J44.0 Chronic obstructive pulmonary disease with (acute) lower respiratory infection; J44.1 Chronic obstructive pulmonary disease with (acute) exacerbation; K21.9 Gastro-esophageal reflux disease without esophagitis; E78.5 Hyperlipidemia, unspecified; M19.90 Unspecified osteoarthritis, unspecified site; K44.9 Diaphragmatic hernia without obstruction or gangrene; K22.5 Diverticulum of esophagus, acquired; K22.4 Dyskinesia of esophagus; I50.9 Heart failure, unspecified; I49.3 Ventricular premature depolarization; I35.0 Nonrheumatic aortic (valve) stenosis; I11.0 Hypertensive heart disease with heart failure; G25.81 Restless legs syndrome; Z87.891 Personal history of nicotine dependence; Z11.52 Encounter for screening for COVID-19; Z95.2 Presence of prosthetic heart valve; Z79.899 Other long term (current) drug therapy; Z79.82 Long term (current) use of aspirin; Z79.1 Long term (current) use of non-steroidal anti-inflammatories (NSAID)
CPT/HCPCS: 36415; 71046; 80048; 80053; 81003; 83036; 83605; 83735; 83880; 84145; 84484; 85025; 85610; 85730; 87040; 87449; 87636; 93005; 94640; 96365; 96375; 99285

== ENCOUNTER 2024-06-20 08:45 | Inpatient (IN) | payer MEDICARE ==
--- NOTE | 2024-06-20 09:21 | ED ---
Fever HPI - General Chief Complaint: Fever Stated Complaint: high fever Time Seen by Provider: 06/20/24 09:00 Source: patient, family, RN notes reviewed Mode of arrival: wheelchair Limitations: no limitations - History of Present Illness Initial Comments: This is an 79-year-old male who presents to the emergency department for fevers and coughing. States that it started overnight. Denies any chest pain or shortness of breath. Has not taken any medication for his fever. Denies any sick contacts. Family is worried about a history of pneumonia. Family states that he has been sleeping excessively recently and feeling very fatigued. MD Complaint: fever, weakness - Related Data Home Medications Medication Instructions Recorded Confirmed Aspirin EC [Ecotrin Low Dose] 81 mg PO DAILY 11/02/21 06/20/24 Ezetimibe [Zetia] 10 mg PO DAILY 11/02/21 06/20/24 Gabapentin [Neurontin] 400 mg PO TID PRN 11/02/21 06/20/24 HYDROcodone/APAP 10-325MG [[place] 1 tab PO QID 11/02/21 06/20/24 10-325] Lansoprazole 30 mg PO DAILY 11/02/21 06/20/24 Meloxicam [Mobic] 15 mg PO DAILY 11/02/21 06/20/24 Metoprolol Tartrate [Lopressor] 25 mg PO BID 11/02/21 06/20/24 lisinopriL [Zestril] 20 mg PO DAILY 11/02/21 06/20/24 modafiniL [Provigil] 200 mg PO DAILY 11/02/21 06/20/24 rOPINIRole HCL [Requip] 4 mg PO BID 11/02/21 06/20/24 Pramipexole [Mirapex] 0.5 mg PO HS 11/17/21 06/20/24 Metoclopramide [Reglan] 5 mg PO DAILY 10/17/23 06/20/24 Rosuvastatin [Crestor] 10 mg PO DAILY 10/17/23 06/20/24 Allergies Allergy/AdvReac Type Severity Reaction Status Date / Time No Known Allergies Allergy Verified 06/20/24 12:25 Review of Systems ROS Statement: Those systems with pertinent positive or pertinent negative responses have been documented in the HPI. ROS Other: All systems not noted in ROS Statement are negative. Past Medical History Past Medical History: Heart Failure, GERD/Reflux, Hyperlipidemia, Hypertension, Musculoskeletal Disorder, Osteoarthritis (OA) Additional Past Medical History / Comment(s): esophageal constriction in the past, aortic valve stenosis, RLS, past hx. of compression fx. in back after a fall, chronic back pain, dry cough - has seen Dr. Monson recently History of Any Multi-Drug Resistant Organisms: None Reported Past Surgical History: Cardiac Valve Replacement, Heart Catheterization Additional Past Surgical History / Comment(s): colonoscopy, EGD, МАРИНА, transcatheter aortic valve replacement completed 01/06/22 Past Anesthesia/Blood Transfusion Reactions: No Reported Reaction Past Psychological History: No Psychological Hx Reported Smoking Status: Former smoker Past Alcohol Use History: Occasional Past Drug Use History: None Reported - Past Family History Mother Family Medical History: No Reported History, Hypertension Father Family Medical History: No Reported History, Hypertension General Exam Limitations: no limitations General appearance: alert, in no apparent distress Head exam: Present: atraumatic, normocephalic, normal inspection Respiratory exam: Present: normal lung sounds bilaterally. Absent: respiratory distress, wheezes, rales, rhonchi, stridor Cardiovascular Exam: Present: regular rate, normal rhythm, normal heart sounds. Absent: systolic murmur, diastolic murmur, rubs, gallop, clicks Neurological exam: Present: alert, oriented X3, CN II-XII intact Psychiatric exam: Present: normal affect, normal mood Skin exam: Present: warm, dry, intact, normal color. Absent: rash Course Vital Signs 06/20/24 06/20/24 06/20/24 08:52 12:33 14:06 Temperature 103 F H 100.4 F H Pulse Rate 121 H 81 80 Respiratory 18 18 18 Rate Blood Pressure 147/72 92/55 77/56 O2 Sat by Pulse 98 94 L 95 Oximetry 06/20/24 15:34 Temperature Pulse Rate 74 Respiratory 20 Rate Blood Pressure 92/54 O2 Sat by Pulse 95 Oximetry Medical Decision Making - Medical Decision Making This is an 79-year-old male who presents to the emergency department for fevers and coughing. Was pt. sent in by a medical professional or institution? @ -No Did you speak to anyone other than the patient for history? @ -Family discussed the information about him being increasingly fatigued. Did you review nursing and triage notes? @ -Yes, and I agree, it is accurate with regards to the patient's symptoms. Were old charts reviewed? @ -No Differential Diagnosis? @ -Differential Fever: Pneumonia, viral URI, endocarditis, myocarditis, pericarditis, otitis, sinusitis, peritonsillar Abscess, retropharyngeal Abscess, epiglottitis, peritonitis, appendicitis, Wendy cystitis, diverticulitis, hepatitis, colitis, UTI, PID, TOA, pyelonephritis, prostatitis, epididymitis, meningitis, encephalitis, pulmonary embolism, CVA, thyroid storm, pancreatitis, adrenal crisis, cavernous sinus thrombosis, this is not meant to be an all-inclusive list. EKG interpreted by me (3pts min.)? @ -EKG interpreted by me demonstrating the following: Sinus rhythm. Ventricular rate 91 bpm, WI interval 155 ms, QRS duration 105 ms, QTc 402 ms. X-rays interpreted by me (1pt min.)? @ -Chest x-ray obtained. My interpretation identifies multifocal airspace opacities. CT interpreted by me (1pt min.)? @ -Not obtained U/S interpreted by me (1pt. min.)? @ -Not obtained What testing was considered but not performed? (CT, X-rays, U/S, labs)? Why? @ -None What meds were considered but not given? Why? @ -None Did you discuss the management of the patient with other professionals? @ -Yes, Dr. Donnelly, who accepts the patient for admission. Did you reconcile home meds? @ -Yes Was smoking cessation discussed for >3mins.? @ -No Was critical care preformed (if so, how long)? @ -No Were there social determinants of health that impacted care today? How? (Homelessness, low income, unemployed, alcoholism, drug addiction, transportation, low edu. Level, literacy, decrease access to med. care, m[facility], rehab)? @ -No Was there de-escalation of care discussed even if they declined? (Discuss DNR or withdrawal of care, Hospice)? @ -No What co-morbidities impacted this encounter? (DM, HTN, Smoking, COPD, CAD, Cancer, CVA, Hep., AIDS, mental health diagnosis, sleep apnea, morbid obesity)? @ -CHF, HTN, HLD, COPD Was patient admitted / discharged? @ -Admitted. Lab work demonstrates leukocytosis with a white blood cell count of 13.4. COVID, influenza, and RSV testing negative. Chest x-ray demonstrates multifocal airspace opacities concerning for pneumonia. Patient had a temper ature of 103 F on arrival. Given patient's age and comorbidities, he was admitted to medicine for management with IV antibiotics. Blood and sputum cultures obtained. He was started on the pneumonia protocol with ceftriaxone and azithromycin. Case discussed with ED attending Dr. Santos. Undiagnosed new problem with uncertain prognosis? @ -None Drug Therapy requiring intensive monitoring for toxicity (Heparin, Nitro, Insulin, Cardizem)? @ -None Were any procedures done? @ -None Diagnosis/symptom? @ -Multifocal pneumonia, weakness Acute, or Chronic, or Acute on Chronic? @ -Acute Uncomplicated (without systemic symptoms) or Complicated (systemic symptoms)? @ -Complicated Side effects of treatment? @ -None Exacerbation, Progression, or Severe Exacerbation] @ -Not applicable Poses a threat to life or bodily function? @ -Yes, can lead to septic shock or respiratory compromise - Lab Data Result diagrams: 06/20/24 11:24 06/20/24 11:24 Lab Results 06/20/24 06/20/24 06/20/24 Range/Units 08:56 11:24 11:24 WBC 13.4 H (3.8-10.6) k/uL RBC 4.58 (4.30-5.90) m/uL Hgb 13.7 (13.0-17.5) gm/dL Hct 41.9 (39.0-53.0) % MCV 91.5 (80.0-100.0) fL MCH 29.9 (25.0-35.0) pg MCHC 32.6 (31.0-37.0) g/dL RDW 14.1 (11.5-15.5) % Plt Count 244 (150-450) k/uL MPV 7.5 Neutrophils % 92 % Lymphocytes % 3 % Monocytes % 4 % Eosinophils % 0 % Basophils % 0 % Neutrophils # 12.4 H (1.3-7.7) k/uL Lymphocytes # 0.4 L (1.0-4.8) k/uL Monocytes # 0.5 (0-1.0) k/uL Eosinophils # 0.1 (0-0.7) k/uL Basophils # 0.0 (0-0.2) k/uL Sodium 135 L (137-145) mmol/L Potassium 3.7 (3.5-5.1) mmol/L Chloride 107 (98-107) mmol/L Carbon Dioxide 24 (22-30) mmol/L Anion Gap 4 mmol/L BUN 29 H (9-20) mg/dL Creatinine 0.72 (0.66-1.25) mg/dL Est GFR (CKD-EPI)AfAm >90 (>60 ml/min/1.73 sqM) Est GFR (CKD-EPI)NonAf 87 (>60 ml/min/1.73 sqM) Glucose 118 H (74-99) mg/dL Plasma Lactic Acid Krishna (0.7-2.0) mmol/L Calcium 8.8 (8.4-10.2) mg/dL Total Bilirubin 1.2 (0.2-1.3) mg/dL AST 24 (17-59) U/L ALT 26 (4-49) U/L Alkaline Phosphatase 70 (38-126) U/L C-Reactive Protein (<1.0) mg/dL NT-Pro-B Natriuret Pep pg/mL Total Protein 6.4 (6.3-8.2) g/dL Albumin 3.7 (3.5-5.0) g/dL Influenza Type A (PCR) Not Detected (Not Detectd) Influenza Type B (PCR) Not Detected (Not Detectd) RSV (PCR) Not Detected (Not Detectd) SARS-CoV-2 (PCR) Not Detected (Not Detectd) 06/20/24 06/20/24 Range/Units 11:24 11:24 WBC (3.8-10.6) k/uL RBC (4.30-5.90) m/uL Hgb (13.0-17.5) gm/dL Hct (39.0-53.0) % MCV (80.0-100.0) fL MCH (25.0-35.0) pg MCHC (31.0-37.0) g/dL RDW (11.5-15.5) % Plt Count (150-450) k/uL MPV Neutrophils % % Lymphocytes % % Monocytes % % Eosinophils % % Basophils % % Neutrophils # (1.3-7.7) k/uL Lymphocytes # (1.0-4.8) k/uL Monocytes # (0-1.0) k/uL Eosinophils # (0-0.7) k/uL Basophils # (0-0.2) k/uL Sodium (137-145) mmol/L Potassium (3.5-5.1) mmol/L Chloride (98-107) mmol/L Carbon Dioxide (22-30) mmol/L Anion Gap mmol/L BUN (9-20) mg/dL Creatinine (0.66-1.25) mg/dL Est GFR (CKD-EPI)AfAm (>60 ml/min/1.73 sqM) Est GFR (CKD-EPI)NonAf (>60 ml/min/1.73 sqM) Glucose (74-99) mg/dL Plasma Lactic Acid Krishna 1.6 (0.7-2.0) mmol/L Calcium (8.4-10.2) mg/dL Total Bilirubin (0.2-1.3) mg/dL AST (17-59) U/L ALT (4-49) U/L Alkaline Phosphatase (38-126) U/L C-Reactive Protein 1.1 H (<1.0) mg/dL NT-Pro-B Natriuret Pep 1490 pg/mL Total Protein (6.3-8.2) g/dL Albumin (3.5-5.0) g/dL Influenza Type A (PCR) (Not Detectd) Influenza Type B (PCR) (Not Detectd) RSV (PCR) (Not Detectd) SARS-CoV-2 (PCR) (Not Detectd) - Radiology Data Radiology results: report reviewed, image reviewed Disposition Clinical Impression: Multifocal pneumonia, Weakness Disposition: ADMITTED IP TO THIS HOSP
--- NOTE | 2024-06-20 09:32 | XR ---
EXAMINATION TYPE: XR chest 2V DATE OF EXAM: 06/20/2024 9:21 AM COMPARISON: Chest radiographs from 10/18/2023 CLINICAL INDICATION: Male, 79 years old with history of Fever, cough; TECHNIQUE: XR chest 2V Frontal and lateral views of the chest. FINDINGS: Lungs/Pleura: Multifocal airspace opacities. No evidence of pneumothorax or pleural effusion. Pulmonary vascularity: Unremarkable. Heart/mediastinum: Cardiomediastinal silhouette is unremarkable. Atherosclerotic calcifications are seen in the aorta. Post aortic valve repair changes. Musculoskeletal: No acute osseous pathology. IMPRESSION: Multifocal airspace opacities concerning for pneumonia. [facility], , 06/20/2024 9:30 AM
[2024-06-20] MEDS: ACETAMINOPHEN TAB 500 MG TAB PO STA (11:16)
[2024-06-20] MEDS: SODIUM CHLORIDE 0.9% 500 ML 500 ML IV STA (11:30)
[2024-06-20 11:53] LABS: Basophils % (A) 0 %; Eosinophils # (A) 0.1 k/uL (0-0.7); Eosinophils % (A) 0 %; HCT 41.9 % (39.0-53.0); HGB 13.7 gm/dL (13.0-17.5); Lymphocytes # (A) 0.4 k/uL (1.0-4.8); Lymphocytes % (A) 3 %; MCH 29.9 pg (25.0-35.0); MCHC 32.6 g/dL (31.0-37.0); MCV 91.5 fL (80.0-100.0); Mean Platelet Volume 7.5; Monocytes # (A) 0.5 k/uL (0-1.0); Monocytes % (A) 4 %; Neutrophils # (A) 12.4 k/uL (1.3-7.7); Neutrophils % (A) 92 %; Platelet Count 244 k/uL (150-450); RBC 4.58 m/uL (4.30-5.90); RDW 14.1 % (11.5-15.5); WBC 13.4 k/uL (3.8-10.6)
[2024-06-20] MEDS ORDERED: PNEUMONIA PROTOCOL UTILIZED 1 EACH MISC PO PRN (11:53)
[2024-06-20 11:57] LABS: ALT 26 U/L (4-49); AST 24 U/L (17-59); African American GFR (CKD) >90 (>60 ml/min/1.73 sqM); Albumin 3.7 g/dL (3.5-5.0); Alkaline Phosphatase 70 U/L (38-126); Anion Gap 4 mmol/L; Blood Urea Nitrogen 29 mg/dL (9-20); Calcium 8.8 mg/dL (8.4-10.2); Carbon Dioxide 24 mmol/L (22-30); Chloride 107 mmol/L (98-107); Glucose 118 mg/dL (74-99); Non-African American GFR(CKD) 87 (>60 ml/min/1.73 sqM); Potassium 3.7 mmol/L (3.5-5.1); Sodium 135 mmol/L (137-145); Total Bilirubin 1.2 mg/dL (0.2-1.3); Total Protein 6.4 g/dL (6.3-8.2)
[2024-06-20 12:01] LABS: C Reactive Protein 1.1 mg/dL (<1.0)
[2024-06-20] MEDS ORDERED: ONDANSETRON 4 MG/2 ML VIAL IVP PRN (12:29)
[2024-06-20] MEDS ORDERED: MORPHINE SULFATE 4 MG/ML SYRINGE IV PRN (12:29)
[2024-06-20] MEDS ORDERED: NALOXONE 0.4 MG/ML 1 ML VIAL IV PRN (12:29)
[2024-06-20] MEDS: AZITHROMYCIN 500 MG in SODIUM CHLORIDE 0.9% 250 ML IVPB STA (14:13)
[2024-06-20] MEDS: SODIUM CHLORIDE 0.9% 1,000 ML IV ONE (15:10)
[2024-06-20] MEDS: GABAPENTIN 400 MG CAP PO PRN (15:31)
[2024-06-20] MEDS: HYDROcodone/APAP 5-325MG 1 EACH TAB PO PRN (15:31)
[2024-06-20] MEDS: SODIUM CHLORIDE 0.9% 500 ML 500 ML IV ONE (15:32)
[2024-06-20] MEDS: SODIUM CHLORIDE 0.9% 1,000 ML IV SCH (16:17)
--- NOTE | 2024-06-20 17:31 | P.HPIM ---
History of Present Illness H&P Date: 06/20/24 Chief Complaint: Fever chills Pleasant 79-year-old patient, follows with Dr. Stewart Ramos. Network Operations Project Manager Dr. Oliveira and division chair Dr. Monson. Medical conditions include GERD, hypertension, hyperlipidemia, osteoarthritis, esophageal stricture constriction in the past, arctic valve stenosis, restless leg syndrome. Chronic back pain from a fall in his younger days. Ex-smoker. Patient presents the ER. Accompanied by his . For 2 days patient's had a cough. No sputum production. Patient started having chills today shivering. Feeling very cold. Temperature recorded at home was 101.6. In the ER was 103. He did receive IV ceftriaxone and IV Zithromax in the ER. Given fluids. Has not really made any urine since this morning. Rather tired. Has been able to eat. Review of systems: GEN.: Fever chills EYES: None HEENT: None NECK: None RESPIRATORY: As above CARDIOVASCULAR: None GASTROINTESTINAL: None GENITOURINARY: None MUSCULOSKELETAL: Chronic low back pain LYMPHATICS: None HEMATOLOGICAL: None PSYCHIATRY: None NEUROLOGICAL: None Social history: Smoked less than a pack half a pack a day for 20 years stopped about 40 years ago. 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 . Physical examination: VITAL SIGNS: 103, 121, 18, blood pressure down to 89 x 53, 95% on 2 L GENERAL: BMI 28.3, laying in bed awake tired EYES: Pupils equal. Conjunctiva hugh l. HEENT: External appearance of nose and ears normal, oral cavity grossly normal. NECK: JVD not raised; masses not palpable. HEART: First and second heart sounds are normal; no edema. LUNGS: Respiratory rate increased, diminished breath sounds. ABDOMEN: Soft, nontender, liver spleen not palpable, no masses palpable. PSYCH: Alert and oriented x3; mood and affect hugh l. MUSCULOSKELETAL:No Clubbing/cyanosis;muscles-grossly intact. OA NEUROLOGICAL: Cranial nerves grossly intact; no facial asymmetry, power and sensation grossly intact. LYMPHATICS: No lymph nodes palpable in the axilla and neck INVESTIGATIONS, reviewed in the clinical context: June 20, 2024: White count 13.4 hemoglobin 13.7 platelets 244 sodium 135 potassium 3.7 BUN 29 creatinine 0.72 proBNP 1490 Influenza type A, type B, RSV, COVID-19: Not detected EKG tracing personally reviewed by me-normal sinus rhythm. Nonspecific ST-T wave changes. Chest x-ray film personally reviewed by me-multifocal infiltrates patient on the right side. Hyperinflation. Assessment plan: -Complicated pneumonia, multilobar suspect gram-negative organism causing sepsis IV ceftriaxone. IV Zithromax. Dr. CORTÉS from pulmonary consulted -Severe sepsis secondary to pneumonia IV fluids. IV antibiotics -Restless leg syndrome Requip 4 mg twice daily -Chronic low back pain from prior injury Neurontin 400 mg 3 times daily as needed. Mobic. [place] 10. -COPD in a previous smoker DuoNeb 4 times daily -GERD Lansoprazole 30 mg daily -Essential hypertension currently blood pressure running low Hold Zestril. Lopressor to be given if systolic greater than 100 -Hyperlipidemia Zetia 10 mg a day -Full code Care was discussed with patient at the bedside. No urine output since this morning. Lockwood catheter for strict I's and O's. Dr. Cortés consulted. Past Medical History Past Medical History: Heart Failure, GERD/Reflux, Hyperlipidemia, Hypertension, Musculoskeletal Disorder, Osteoarthritis (OA) Additional Past Medical History / Comment(s): esophageal constriction in the past, aortic valve stenosis, RLS, past hx. of compression fx. in back after a fall, chronic back pain, dry cough - has seen Dr. Monson recently History of Any Multi-Drug Resistant Organisms: None Reported Past Surgical History: Cardiac Valve Replacement, Heart Catheterization Additional Past Surgical History / Comment(s): colonoscopy, EGD, МАРИНА, transcatheter aortic valve replacement completed 01/06/22 Past Anesthesia/Blood Transfusion Reactions: No Reported Reaction Past Psychological History: No Psychological Hx Reported Smoking Status: Former smoker Past Alcohol Use History: Occasional Past Drug Use History: None Reported - Past Family History Mother Family Medical History: No Reported History, Hypertension Father Family Medical History: No Reported History, Hypertension Medications and Allergies Home Medications Medication Instructions Recorded Confirmed Type Aspirin EC [Ecotrin Low Dose] 81 mg PO DAILY 11/02/21 06/20/24 History Ezetimibe [Zetia] 10 mg PO DAILY 11/02/21 06/20/24 History Gabapentin [Neurontin] 400 mg PO TID PRN 11/02/21 06/20/24 History HYDROcodone/APAP 10-325MG [[place] 1 tab PO QID 11/02/21 06/20/24 History 10-325] Lansoprazole 30 mg PO DAILY 11/02/21 06/20/24 History Meloxicam [Mobic] 15 mg PO DAILY 11/02/21 06/20/24 History Metoprolol Tartrate [Lopressor] 25 mg PO BID 11/02/21 06/20/24 History lisinopriL [Zestril] 20 mg PO DAILY 11/02/21 06/20/24 History modafiniL [Provigil] 200 mg PO DAILY 11/02/21 06/20/24 History rOPINIRole HCL [Requip] 4 mg PO BID 11/02/21 06/20/24 History Pramipexole [Mirapex] 0.5 mg PO HS 11/17/21 06/20/24 History Metoclopramide [Reglan] 5 mg PO DAILY 10/17/23 06/20/24 History Rosuvastatin [Crestor] 10 mg PO DAILY 10/17/23 06/20/24 History Allergies Allergy/AdvReac Type Severity Reaction Status Date / Time No Known Allergies Allergy Verified 06/20/24 12:25 Physical Exam Vitals: Vital Signs Temp Pulse Resp BP Pulse Ox 06/20/24 17:04 65 20 104/57 95 06/20/24 16:00 62 18 89/53 96 06/20/24 15:34 74 20 92/54 95 06/20/24 14:06 80 18 77/56 95 06/20/24 12:33 100.4 F H 81 18 92/55 94 L 06/20/24 08:52 103 F H 121 H 18 147/72 98 Intake and Output 06/20/24 06/20/24 06/20/24 06:59 14:59 22:59 Other: Weight 72.575 kg Results CBC & Chem 7: 06/20/24 11:24 06/20/24 11:24 Labs: Abnormal Lab Results - Last 24 Hours (Table) 06/20/24 06/20/24 06/20/24 Range/Units 11:24 11:24 11:24 WBC 13.4 H (3.8-10.6) k/uL Neutrophils # 12.4 H (1.3-7.7) k/uL Lymphocytes # 0.4 L (1.0-4.8) k/uL Sodium 135 L (137-145) mmol/L BUN 29 H (9-20) mg/dL Glucose 118 H (74-99) mg/dL C-Reactive Protein 1.1 H (<1.0) mg/dL
[2024-06-20] MEDS: HYDROcodone/APAP 10-325MG 1 EACH TAB PO SCH (18:19)
[2024-06-20] MEDS: ENOXAPARIN 40 MG/0.4 ML SYRINGE SQ SCH (18:20)
[2024-06-20] MEDS: LACTATED RINGERS 1,000 ML IV SCH (18:20)
[2024-06-20] MEDS: PRAMIPEXOLE 0.5 MG TAB PO SCH (19:48)
[2024-06-20] MEDS: rOPINIRole HCL 4 MG TABLET PO SCH (19:49)
[2024-06-20] MEDS: IPRATROPIUM-ALBUTEROL 3 ML NEB INHALATION SCH (19:55)
[2024-06-20] MEDS: METOPROLOL TARTRATE 25 MG TAB PO SCH (21:27)
[2024-06-21] MEDS: EZETIMIBE 10 MG TAB PO SCH (07:53)
[2024-06-21] MEDS: ATORVASTATIN 20 MG TAB PO SCH (07:53)
[2024-06-21] MEDS: PANTOPRAZOLE 40 MG/10 ML VIAL IV SCH (07:53)
[2024-06-21] MEDS: ASPIRIN 81 MG PO SCH (07:53)
[2024-06-21] MEDS: AZITHROMYCIN 500 MG TAB PO SCH (07:53)
[2024-06-21] MEDS: METOCLOPRAMIDE 5 MG TAB PO SCH (07:55)
[2024-06-21] MEDS: MELOXICAM 7.5 MG TAB PO SCH (08:01)
[2024-06-21] MEDS ORDERED: NON FORMULARY DRUG (Lansoprazole [Lansoprazole] 30 MG Capsule.Dr) PO SCH (09:00)
[2024-06-21] MEDS ORDERED: lisinopriL 20 MG TAB PO SCH (09:00)
[2024-06-21] MEDS: LACTATED RINGERS 1,000 ML IV SCH (11:50)
--- NOTE | 2024-06-21 14:04 | P.CNPUL ---
History of Present Illness Consult date: 06/21/24 Requesting physician: Charles Donnelly Reason for consult: dyspnea, cough Chief complaint: Shortness of breath, cough, congestion History of present illness: This is an 79-year-old male patient congestive heart failure, hyperlipidemia, hypertension, previous TAVR procedure, former smoker who was brought into the emergency room yesterday with a history of fever, coughing and shortness of breath. X-ray reveals multifocal airspace opacities concerning for pneumonia. White count 13.4. Hemoglobin 13.7. Platelets 244. Sodium 135. Potassium 3.7. Bicarb 24. BUN 29. Creatinine 0.72. Glucose 118. Procalcitonin 3.50. Viral screen negative. He is seen today in consultation in the emergency department. He is currently sitting up on a stretcher. Awake and alert in no acute distress. He is maintaining O2 saturations in the 90s on 2 L/min per nasal cannula. Currently afebrile. Hemodynamically stable. He did have a Tmax of 103 yesterday. Review of Systems REVIEW OF SYSTEMS: CONSTITUTIONAL: Positive for febrile illness. Denies any recent significant we ight loss or weight gain. EYES: Denies change in vision. EARS, NOSE, MOUTH, THROAT: Denies headaches, denies sore throat. CARDIOVASCULAR: Denies chest pain, palpitations or syncopal episodes. RESPIRATORY: Positive for shortness of breath, cough, congestion no hemoptysis. GASTROINTESTINAL: Denies change in appetite, denies abdominal pain GENITOURINARY: Denies hematuria, denies infections. MUSKULOSKELETAL: Denies pain, denies swelling. INTEGUMENTARY: Denies rash, denies eczema. NEUROLOGICAL: Denies recent memory loss, no recent seizure activity. PSYCHIATRIC: Denies anxiety, denies depression. HEMATOLOGIC/LYMPHATIC: Denies anemia, denies enlarged lymph nodes. Past Medical History Past Medical History: Heart Failure, GERD/Reflux, Hyperlipidemia, Hypertension, Musculoskeletal Disorder, Osteoarthritis (OA) Additional Past Medical History / Comment(s): esophageal constriction in the past, aortic valve stenosis, RLS, past hx. of compression fx. in back after a fall, chronic back pain, dry cough - has seen Dr. Monson recently History of Any Multi-Drug Resistant Organisms: None Reported Past Surgical History: Cardiac Valve Replacement, Heart Catheterization Additional Past Surgical History / Comment(s): colonoscopy, EGD, МАРИНА, transcatheter aortic valve replacement completed 01/06/22 Past Anesthesia/Blood Transfusion Reactions: No Reported Reaction Past Psychological History: No Psychological Hx Reported Smoking Status: Former smoker Past Alcohol Use History: Occasional Past Drug Use History: None Reported - Past Family History Mother Family Medical History: No Reported History, Hypertension Father Family Medical History: No Reported History, Hypertension Medications and Allergies Home Medications Medication Instructions Recorded Confirmed Type Aspirin EC [Ecotrin Low Dose] 81 mg PO DAILY 11/02/21 06/20/24 History Ezetimibe [Zetia] 10 mg PO DAILY 11/02/21 06/20/24 History Gabapentin [Neurontin] 400 mg PO TID PRN 11/02/21 06/20/24 History HYDROcodone/APAP 10-325MG [[place] 1 tab PO QID 11/02/21 06/20/24 History 10-325] Lansoprazole 30 mg PO DAILY 11/02/21 06/20/24 History Meloxicam [Mobic] 15 mg PO DAILY 11/02/21 06/20/24 History Metoprolol Tartrate [Lopressor] 25 mg PO BID 11/02/21 06/20/24 History lisinopriL [Zestril] 20 mg PO DAILY 11/02/21 06/20/24 History modafiniL [Provigil] 200 mg PO DAILY 11/02/21 06/20/24 History rOPINIRole HCL [Requip] 4 mg PO BID 11/02/21 06/20/24 History Pramipexole [Mirapex] 0.5 mg PO HS 11/17/21 06/20/24 History Metoclopramide [Reglan] 5 mg PO DAILY 10/17/23 06/20/24 History Rosuvastatin [Crestor] 10 mg PO DAILY 10/17/23 06/20/24 History Allergies Allergy/AdvReac Type Severity Reaction Status Date / Time No Known Allergies Allergy Verified 06/20/24 12:25 Physical Exam Vitals: Vital Signs Temp Pulse Resp BP Pulse Ox 06/21/24 13:14 98.3 F 71 22 130/66 95 06/21/24 12:38 68 06/21/24 12:28 68 06/21/24 11:00 54 L 20 121/72 95 06/21/24 09:00 87 13 180/70 98 06/21/24 08:55 70 06/21/24 08:36 72 97 06/21/24 08:00 98.9 F 64 20 121/72 99 06/21/24 06:10 98.6 F 67 18 105/60 98 06/21/24 04:00 68 18 97/52 98 06/20/24 23:15 71 18 97/51 96 06/20/24 21:32 98.2 F 06/20/24 21:24 72 18 94/52 96 06/20/24 20:01 78 06/20/24 19:57 74 06/20/24 19:42 78 18 109/87 97 06/20/24 17:04 65 20 104/57 95 06/20/24 16:00 62 18 89/53 96 06/20/24 15:34 74 20 92/54 95 06/20/24 14:06 80 18 77/56 95 Intake and Output 06/20/24 06/21/24 06/21/24 22:59 06:59 14:59 Output Total 089 720 1375 Balance -900 -950 -2800 Output: Urine 295 647 5489 Uretheral ([place]) 900 950 GENERAL EXAM: Alert, pleasant 79-year-old male, on 2 L nasal cannula, fairly comfortable in no apparent distress. HEAD: Normocephalic. EYES: Normal reaction of pupils, equal size. NOSE: Clear with pink turbinates. THROAT: No erythema or exudates. NECK: No masses, no JVD. CHEST: No chest wall deformity. LUNGS: Equal air entry with bilateral scattered rhonchi. CVS: S1 and S2 normal with no audible murmur, regular rhythm. ABDOMEN: No hepatosplenomegaly, normal bowel sounds, no guarding or rigidity. SPINE: No scoliosis or deformity SKIN: No rashes CENTRAL NERVOUS SYSTEM: No focal deficits, tone is normal in all 4 extremities. EXTREMITIES: There is no peripheral edema. No clubbing, no cyanosis. Peripheral pulses are intact. Results - Laboratory Findings CBC and BMP: 06/20/24 11:24 06/20/24 11:24 Abnormal lab findings: Abnormal Labs 06/20/24 06/20/24 06/20/24 11:24 11:24 11:24 WBC 13.4 H Neutrophils # 12.4 H Lymphocytes # 0.4 L Sodium 135 L BUN 29 H Glucose 118 H C-Reactive Protein 1.1 H Procalcitonin 06/20/24 11:24 WBC Neutrophils # Lymphocytes # Sodium BUN Glucose C-Reactive Protein Procalcitonin 3.50 H - Diagnostic Findings Chest x-ray: image reviewed Assessment and Plan Assessment: Acute hypoxemic respiratory failure secondary to community-acquired pneumonia. Procalcitonin 3.50 Mild leukocytosis secondary to above Febrile illness secondary to above Hypertension Hyperlipidemia History of congestive heart failure History of esophageal stricture Trans catheter aortic valve replacement in December 2021 Former smoker Plan: The patient was seen and evaluated Chest x-ray, labs and medications reviewed Continue ceftriaxone and azithromycin Lovenox for DVT prophylaxis Titrate down the FiO2 as tolerated We will continue to follow and make further recommendations based on his clinical status I have personally seen and examined the patient, performed the documentation and the assessment and plan as written. Number of minutes spent on the visit: 20 Dictation was produced using [employer] dictation software. Please excuse any grammatical, word or spelling errors.
[2024-06-21] MEDS: ACETAMINOPHEN TAB 325 MG TAB PO PRN (20:12)
[2024-06-21] MEDS: MELATONIN 5 MG TABLET PO SCH (22:11)
[2024-06-21] MEDS: polyethylene glycoL 3350 17 GM POWD.PACK PO STA (22:12)
[2024-06-22] MEDS: PANTOPRAZOLE 40 MG TABLET PO SCH (06:44)
--- NOTE | 2024-06-22 07:10 | P.PN ---
Subjective Progress Note Date: 06/21/24 Pleasant 79-year-old patient, follows with Dr. Stewart Ramos. Tent Assembler Dr. Oliveira and vice president biostatistics Dr. Monson. Medical conditions include GERD, hypertension, hyperlipidemia, osteoarthritis, esophageal stricture constriction in the past, arctic valve stenosis, restless leg syndrome. Chronic back pain from a fall in his younger days. Ex-smoker. Patient presents the ER. Accompanied by his . For 2 days patient's had a cough. No sputum production. Patient started having chills today shivering. Feeling very cold. Temperature recorded at home was 101.6. In the ER was 103. He did receive IV ceftriaxone and IV Zithromax in the ER. Given fluids. Has not really made any urine since this morning. Rather tired. Has been able to eat. 06/22/2024 Patient evaluated sitting in the ER with at the bedside. Still with nonproductive cough. Tolerating diet. He has been afebrile since admission. On course of IV ceftriaxone and oral azithromycin. Indwelling catheter in place, he is making urine now with 8.4 Liters off in the last 48 hours. Review of Systems Constitutional: Denied any fatigue denied any fever. Cardio vascular: denied any chest pain, palpitations Gastrointestinal: denied any nausea, vomiting, diarrhea Pulmonary: Denied any shortness of breath cough Neurologic denied any new focal deficits All inpatient medications were reviewed and appropriate changes in these m edications as dictated in the interval history and assessment and plan. PHYSICAL EXAMINATION: GENERAL: The patient is alert and oriented x3, not in any acute distress. Well developed, well nourished. HEENT: Pupils are round and equally reacting to light. EOMI. No scleral icterus. No conjunctival pallor. Normocephalic, atraumatic. No pharyngeal erythema. No thyromegaly. CARDIOVASCULAR: S1 and S2 present. No murmurs, rubs, or gallops. PULMONARY: Chest is clear to auscultation, no wheezing or crackles. ABDOMEN: Soft, nontender, nondistended, normoactive bowel sounds. No palpable organomegaly. MUSCULOSKELETAL: No joint swelling or deformity. EXTREMITIES: No cyanosis, clubbing, or pedal edema. NEUROLOGICAL: Gross neurological examination did not reveal any focal deficits. SKIN: No rashes. Assessment and Plan -Complicated pneumonia, multilobar suspect gram-negative organism causing sepsis IV ceftriaxone. PO Zithromax. Dr. GRAY from pulmonary consulted -Severe sepsis secondary to pneumonia IV fluids currently LR at 75. IV antibiotics -Restless leg syndrome Requip 4 mg twice daily -Chronic low back pain from prior injury Neurontin 400 mg 3 times daily as needed. Mobic. [place] 10. -COPD in a previous smoker DuoNeb 4 times daily -GERD Lansoprazole 30 mg daily -Essential hypertension currently blood pressure running low Resume lisinopril; Blood pressure has normalized and elevated now. -Hyperlipidemia Zetia 10 mg a day -Full code Repeat blood work in the AM. The impression and plan of care has been dictated by Megha Urena, Nurse Practitioner as directed. Dr. Yuri MD I have performed a history and physical examination and medical decision making of this patient, discussed the same with the dictator, and agree with the dictators assessment and plan as written, documented as a scribe. Based on total visit time, I have performed more than 50% of this visit. Objective - Vital Signs Vital signs: Vital Signs Temp 98.3 F 06/21/24 13:14 Pulse 71 06/21/24 13:14 Resp 22 06/21/24 13:14 BP 130/66 06/21/24 13:14 Pulse Ox 95 06/21/24 13:14 FiO2 Intake & Output 06/20/24 06/21/24 06/21/24 18:59 06:59 18:59 Output Total 1850 2800 Balance -1850 -2800 Weight 72.575 kg Output: Urine 1850 2800 Uretheral ([place]) 1850 - Labs CBC & Chem 7: 06/20/24 11:24 06/20/24 11:24 Labs: Abnormal Lab Results - Last 24 Hours (Table) 06/20/24 Range/Units 11:24 Procalcitonin 3.50 H (0.02-0.50) ng/mL Assessment and Plan Time with Patient: Less than 30
[2024-06-22 07:47] LABS: African American GFR (CKD) >90 (>60 ml/min/1.73 sqM); Anion Gap 4 mmol/L; Blood Urea Nitrogen 15 mg/dL (9-20); Calcium 8.9 mg/dL (8.4-10.2); Carbon Dioxide 26 mmol/L (22-30); Chloride 108 mmol/L (98-107); Glucose 98 mg/dL (74-99); Non-African American GFR(CKD) 88 (>60 ml/min/1.73 sqM); Potassium 4.5 mmol/L (3.5-5.1); Sodium 138 mmol/L (137-145)
[2024-06-22 08:09] LABS: Basophils % (A) 0 %; Eosinophils # (A) 0.1 k/uL (0-0.7); Eosinophils % (A) 1 %; HCT 36.7 % (39.0-53.0); HGB 11.5 gm/dL (13.0-17.5); Hypochromasia Slight; Lymphocytes # (A) 0.8 k/uL (1.0-4.8); Lymphocytes % (A) 6 %; MCH 29.9 pg (25.0-35.0); MCHC 31.5 g/dL (31.0-37.0); MCV 94.9 fL (80.0-100.0); Monocytes # (A) 0.4 k/uL (0-1.0); Monocytes % (A) 3 %; Neutrophils # (A) 10.6 k/uL (1.3-7.7); Neutrophils % (A) 88 %; Platelet Count 181 k/uL (150-450); RBC 3.87 m/uL (4.30-5.90); RDW 13.8 % (11.5-15.5); WBC 12.1 k/uL (3.8-10.6)
[2024-06-22] MEDS: lisinopriL 20 MG TAB PO SCH (09:09)
[2024-06-22 10:17] VITALS: BMI 28.3
[2024-06-22 13:21] VITALS: BP 172/80; PULSE 72; RESP 15; TEMP 97.7
--- NOTE | 2024-06-22 13:24 | P.PN ---
Subjective Progress Note Date: 06/22/24 Principal diagnosis: Pneumonia, weakness. This is an 79-year-old male patient congestive heart failure, hyperlipidemia, hypertension, previous TAVR procedure, former smoker who was brought into the emergency room yesterday with a history of fever, coughing and shortness of breath. X-ray reveals multifocal airspace opacities concerning for pneumonia. White count 13.4. Hemoglobin 13.7. Platelets 244. Sodium 135. Potassium 3.7. Bicarb 24. BUN 29. Creatinine 0.72. Glucose 118. Procalcitonin 3.50. Viral screen negative. He is seen today in consultation in the emergency department. He is currently sitting up on a stretcher. Awake and alert in no acute distress. He is maintaining O2 saturations in the 90s on 2 L/min per nasal cannula. Currently afebrile. Hemodynamically stable. He did have a Tmax of 103 yesterday. Progress note dated June 22, 2024. 79-year-old male seen in room 469. The patient is currently on 2 L. He is getting saline at 75 cc an hour. The patient's procalcitonin level was elevated at 3.5. Clinically, the patient appears to be in no distress. He is awake and alert. He is sitting in the chair next to the hospital bed. He was hoping to potentially be discharged. Current labs include a white count 12.1, hemoglobin 11.5, hematocrit 36.7, and a platelet count of 101,000. Sodium 138, potassium 4.5, chlorides 108, CO2 26, BUN 15, creatinine 0.71. Calcium is 8.9. Objective - Vital Signs Vital signs: Vital Signs Temp 98.4 F 06/22/24 07:05 Pulse 74 06/22/24 11:29 Resp 18 06/22/24 08:00 BP 175/79 06/22/24 07:05 Pulse Ox 96 06/22/24 12:23 FiO2 Intake & Output 06/21/24 06/22/24 06/22/24 18:59 06:59 18:59 Intake Total 1540 Output Total 2800 5600 1000 Balance -2800 -4060 -1000 Weight 72.575 kg 72.575 kg Intake: IV 750 Lactated Ringers 1,000 ml 750 @ 75 mls/hr IV .[id number] [facility] Rx#:[id number] Oral 790 Output: Urine 2800 5600 1000 Uretheral ([place]) 2100 1000 Other: Voiding Method Indwelling Catheter Indwelling Catheter - Exam No acute distress, oriented 3. No respiratory distress at this time. HEENT examination is grossly unremarkable. Mucous membranes are moist. No oral lesions. Neck supple. Full range of motion. No adenopathy thyromegaly or neck vein distention. Cardiovascular examination reveals regular rhythm rate. S1-S2 normal. No S3 or S4. No discernible murmur noted. Lungs reveal scattered rhonchi and wheezes. They are mild to moderate in severity. Breath sounds are equal bilaterally. There are no crackles. Saturations are adequate. Abdomen soft bowel sounds are heard. No masses or tenderness. Extremities are intact. No cyanosis clubbing or edema. Skin is without rash or lesion. Neurologic examination is brief but nonfocal. - Labs CBC & Chem 7: 06/22/24 07:22 06/22/24 07:22 Labs: Abnormal Lab Results - Last 24 Hours (Table) 06/22/24 06/22/24 Range/Units 07:22 07:22 WBC 12.1 H (3.8-10.6) k/uL RBC 3.87 L (4.30-5.90) m/uL Hgb 11.5 L (13.0-17.5) gm/dL Hct 36.7 L (39.0-53.0) % Neutrophils # 10.6 H (1.3-7.7) k/uL Lymphocytes # 0.8 L (1.0-4.8) k/uL Chloride 108 H (98-107) mmol/L Microbiology - Last 24 Hours (Table) 06/20/24 12:42 Nasal Screen MRSA/MSSA - Final Nasal Swab 06/20/24 11:24 Blood Culture - Preliminary Blood Assessment and Plan Assessment: Acute hypoxemic respiratory failure secondary to community-acquired pneumonia. Mild leukocytosis secondary to above. Febrile illness secondary to above. Hypertension. Hyperlipidemia. History of congestive heart failure. History of esophageal stricture. Trans catheter aortic valve replacement in December 2021. Former smoker. Plan: Plan dated June 22, 2024. 79-year-old male seen today in room 469. The patient is currently on 2 L of oxygen. He is getting saline at 75 cc an hour. The patient was sitting in a chair next to his hospital bed. He is in no acute distress. He mentioned to me that he would like to be discharged. I told him that would be up to the primary service. The patient is placed on Omnicef 300 mg p.o. twice daily. In addition, the patient continues on updrafts, as well as his regular medications. Labs, x-rays, and all medications are reviewed. We will continue to follow. Prognosis is guarded. Time with Patient: Less than 30
[2024-06-22] MEDS ORDERED: CEFDINIR 300 MG CAP PO SCH (21:00)
--- NOTE | 2024-06-23 14:42 | P.DS ---
Providers Date of admission: 06/20/24 12:32 Attending physician: Charles Donnelly Consults: 06/20/24 17:18 Consult Physician Urgent Consulting Provider: Temo Cortés Consult Reason/Comments: Pneumonia sepsis Do you want consulting provider notified?: Yes Primary care physician: Stewart Ramos Hospital Course: Final Diagnosis -Complicated pneumonia, multilobar suspect gram-negative organism causing sepsis -Severe sepsis secondary to pneumonia -Restless leg syndrome -Chronic low back pain from prior injury -COPD in a previous smoker -GERD -Essential hypertension currently blood pressure running low -Hyperlipidemia Discharge Disposition Patient is stable for discharge home. Continue on antibiotics on discharge. Follow up with pulmonary on discharge. Indwelling catheter has been removed and patient is voiding without difficulty. Hospital Course This is a Pleasant 79-year-old patient, follows with Dr. Stewart Ramos. Social Service Assistant Dr. Oliveira and director of student financial aid Dr. Monson. Medical conditions include GERD, hypertension, hyperlipidemia, osteoarthritis, esophageal stricture constriction in the past, arctic valve stenosis, restless leg syndrome. Chronic back pain from a fall in his younger days. Ex-smoker. Patient presents the ER, accompanied by his . He has complaints of cough with sputum production over the last 2 days. Patient started having chills today shivering. Feeling very cold. Temperature recorded at home was 101.6. In the ER was 103. He did receive IV ceftriaxone and IV Zithromax in the ER. Given fluids. Has not really made any urine since this morning. Rather tired. Has been able to eat. He was admitted to the hospital with consult placed to pulmonology. Also had an indwelling catheter placed for the urinary retention. He clinically improved with antibiotics. He has been weaned off the oxygen and saturating well on room air. Sodium better at 138. He has been afebrile for 48 hours. Procalcitonin level 3.50. Viral panel negative. He was cleared for discharge home will continue a course of oral antibiotics and steroids. The urinary catheter was discontinued and he is voiding successfully. Please see medication reconciliation for a list of current medications. Thank you for allowing us to participate in the care of this patient. The impression and plan of care has been dictated by Megha Urena, Nurse Practitioner as directed. Dr. Yuri MD I have performed a history and physical examination and medical decision making of this patient, discussed the same with the dictator, and agree with the dictators assessment and plan as written, documented as a scribe. Based on total visit time, I have performed more than 50% of this visit. Patient Condition at Discharge: Stable Plan - Discharge Summary Discharge Rx Participant: No New Discharge Prescriptions: New Mometasone/Formoterol [Dulera 100 Mcg-5 Mcg Inhaler] 1 puff INHALATION BID #13 gm Cefdinir [Omnicef] 300 mg PO BID 5 Days #10 cap Albuterol Inhaler [Ventolin Hfa Inhaler] 1 - 2 puff INHALATION Q6H PRN #1 each PRN Reason: Shortness Of Breath Or Wheezing Continue rOPINIRole HCL [Requip] 4 mg PO BID modafiniL [Provigil] 200 mg PO DAILY lisinopriL [Zestril] 20 mg PO DAILY Metoprolol Tartrate [Lopressor] 25 mg PO BID Meloxicam [Mobic] 15 mg PO DAILY Aspirin EC [Ecotrin Low Dose] 81 mg PO DAILY Lansoprazole 30 mg PO DAILY HYDROcodone/APAP 10-325MG [[place] 10-325] 1 tab PO QID Gabapentin [Neurontin] 400 mg PO TID PRN PRN Reason: Pain Pramipexole [Mirapex] 0.5 mg PO HS Metoclopramide [Reglan] 5 mg PO DAILY Rosuvastatin [Crestor] 10 mg PO DAILY Ezetimibe [Zetia] 10 mg PO DAILY Discharge Medication List Aspirin EC [Ecotrin Low Dose] 81 mg PO DAILY 11/02/21 [History] Ezetimibe [Zetia] 10 mg PO DAILY 11/02/21 [History] Gabapentin [Neurontin] 400 mg PO TID PRN 11/02/21 [History] HYDROcodone/APAP 10-325MG [[place] 10-325] 1 tab PO QID 11/02/21 [History] Lansoprazole 30 mg PO DAILY 11/02/21 [History] Meloxicam [Mobic] 15 mg PO DAILY 11/02/21 [History] Metoprolol Tartrate [Lopressor] 25 mg PO BID 11/02/21 [History] lisinopriL [Zestril] 20 mg PO DAILY 11/02/21 [History] modafiniL [Provigil] 200 mg PO DAILY 11/02/21 [History] rOPINIRole HCL [Requip] 4 mg PO BID 11/02/21 [History] Pramipexole [Mirapex] 0.5 mg PO HS 11/17/21 [History] Metoclopramide [Reglan] 5 mg PO DAILY 10/17/23 [History] Rosuvastatin [Crestor] 10 mg PO DAILY 10/17/23 [History] Albuterol Inhaler [Ventolin Hfa Inhaler] 1 - 2 puff INHALATION Q6H PRN #1 each 06/22/24 [Rx] Cefdinir [Omnicef] 300 mg PO BID 5 Days #10 cap 06/22/24 [Rx] Mometasone/Formoterol [Dulera 100 Mcg-5 Mcg Inhaler] 1 puff INHALATION BID #13 gm 06/22/24 [Rx] Follow up Appointment(s)/Referral(s): Juan Diego Monson MD [STAFF PHYSICIAN] - 07/10/24 2:00 pm Stewart Ramos MD [Primary Care Provider] - 1-2 days (Office closed today.Patient needs to call first thing Tuesday morning to set up follow up appointment. ) Ambulatory/Diagnostic Orders: Basic Metabolic Panel [LAB.AMB] Location: None Selected Complete Blood Count w/diff [LAB.AMB] Time Frame: 3 Days, Location: None Selected Activity/Diet/Wound Care/Special Instructions: Use the Dulera inhaler twice a day can stop after 1 week if symptoms have improved. Continue antibiotics for the next 5 days Follow up with director of student financial aid Dr Monson in the office in 1 to 2 weeks Discharge Disposition: HOME SELF-CARE
== END 2024-06-22 15:30 | disposition home or self-care (01) | DRG 871 ==
LOC: EC 08:45 → 4SSUR 12:32
PROVIDERS: ADMIT Hospitalist; ATTEND Hospitalist
DX: A41.50 Gram-negative sepsis, unspecified (principal); J15.69 Pneumonia due to other Gram-negative bacteria; J96.01 Acute respiratory failure with hypoxia; J44.0 Chronic obstructive pulmonary disease with (acute) lower respiratory infection; R65.20 Severe sepsis without septic shock; E78.5 Hyperlipidemia, unspecified; G25.81 Restless legs syndrome; G89.29 Other chronic pain; I11.0 Hypertensive heart disease with heart failure; I35.0 Nonrheumatic aortic (valve) stenosis; I50.9 Heart failure, unspecified; K21.9 Gastro-esophageal reflux disease without esophagitis; M54.9 Dorsalgia, unspecified; Z79.82 Long term (current) use of aspirin; Z79.1 Long term (current) use of non-steroidal anti-inflammatories (NSAID); Z79.899 Other long term (current) drug therapy; Z87.891 Personal history of nicotine dependence; Z95.2 Presence of prosthetic heart valve
CPT/HCPCS: 36415; 71046; 80048; 80053; 83605; 83880; 84145; 85025; 86140; 87040; 87070; 87449; 87636; 93005; 94640; 94760

== ENCOUNTER 2024-07-15 13:08 | Inpatient (IN) | payer MEDICARE ==
--- NOTE | 2024-07-15 13:59 | XR ---
EXAMINATION TYPE: XR chest 2V DATE OF EXAM: 07/15/2024 1:54 PM COMPARISON: None CLINICAL INDICATION: Male, 79 years old with history of fall hitting chest.; [facility] pain TECHNIQUE: XR chest 2V Frontal and lateral views of the chest. FINDINGS: Lungs/Pleura: Right lower lung airspace opacities remain from 06/20/2024. There is no evidence of ple ural effusion, focal consolidation, or pneumothorax. Pulmonary vascularity: Unremarkable. Heart/mediastinum: Cardiomediastinal silhouette is unremarkable. Post aortic valve repair changes. Musculoskeletal: Degenerative changes of the shoulder joints. Other findings: None IMPRESSION: 1. Right lower lung airspace opacities correlate for pneumonia. 2. Aortic repair changes. 3. COPD changes. [facility], , 07/15/2024 1:57 PM
--- NOTE | 2024-07-15 14:33 | ED ---
Recheck HPI - General Source: patient, family, RN notes reviewed Mode of arrival: wheelchair Limitations: no limitations <LanceClarence - Last Filed: 07/15/24 14:31> <Rachelle Santos - Last Filed: 07/15/24 23:05> - General Chief Complaint: Recheck/Abnormal Lab/Rx Stated Complaint: Fall/R Chest Pain Time Seen by Provider: 07/15/24 13:24 - History of Present Illness Initial Comments: This is an 79-year-old male with history of recurrent pneumonia presenting with daughter for fever, cough and dyspnea. Patient endorses recently having a fall in the garage, striking his chest on a cabinet at the time. Endorses associated chest TTP. Endorses recent hospitalization discharge following a bout of pneumonia. Endorses last received Tylenol for fever at 1030 this morning. Endorses history of pneumonia 5 times since a heart valve replacement in 2021. (Clarence Lucas) 79-year-old male with past medical history of aortic valve stenosis with replacement, recurrent pneumonia, esophageal stricture who presents to the emergency department reporting cough and fever. He reports that on Tuesday he fell in his garage. He hit his right chest wall on a cabinet. Ever since then he has had chest wall pain. Patient cannot take in a deep inspiration. Reports that within the past day he developed fevers and a cough. He is concern for pneumonia as he has had recurrent bouts of infection. Patient was recently hospitalized in June for pneumonia. He did follow-up with a GI doctor out of [facility] on July 03 and had an endoscopy. He did have dilation of his esophagus. He was referred back to Dr. Mauro. It was recommended that the patient have a CT scan of his chest performed by the GI doctor however patient is scheduled to have this done this week at [facility]. He has had issues with aspiration in the past. Patient is not on any blood thinners. He denies any nausea or vomiting. No other alleviating, precipitating modifying factors (Rachelle Santos) - Related Data Home Medications Medication Instructions Recorded Confirmed Aspirin EC [Ecotrin Low Dose] 81 mg PO DAILY 11/02/21 07/15/24 Ezetimibe [Zetia] 10 mg PO DAILY 11/02/21 07/15/24 Gabapentin [Neurontin] 400 mg PO TID PRN 11/02/21 07/15/24 HYDROcodone/APAP 10-325MG [[place] 1 tab PO QID 11/02/21 07/15/24 10-325] Lansoprazole 30 mg PO DAILY 11/02/21 07/15/24 Meloxicam [Mobic] 15 mg PO DAILY 11/02/21 07/15/24 Metoprolol Tartrate [Lopressor] 25 mg PO BID 11/02/21 07/15/24 lisinopriL [Zestril] 20 mg PO DAILY 11/02/21 07/15/24 modafiniL [Provigil] 200 mg PO DAILY 11/02/21 07/15/24 rOPINIRole HCL [Requip] 4 mg PO BID 11/02/21 07/15/24 Pramipexole [Mirapex] 0.5 mg PO HS 11/17/21 07/15/24 Metoclopramide [Reglan] 5 mg PO DAILY 10/17/23 07/15/24 Rosuvastatin [Crestor] 10 mg PO DAILY 10/17/23 07/15/24 Albuterol Inhaler [Ventolin Hfa 2 puff INHALATION RT-Q6H PRN 07/15/24 07/15/24 Inhaler] Allergies Allergy/AdvReac Type Severity Reaction Status Date / Time No Known Allergies Allergy Verified 07/15/24 20:02 Review of Systems ROS Other: All systems not noted in ROS Statement are negative. <Clarence Lucas - Last Filed: 07/15/24 14:31> ROS Other: All systems not noted in ROS Statement are negative. <Rachelle Santos - Last Filed: 07/15/24 23:05> ROS Statement: Those systems with pertinent positive or pertinent negative responses have been documented in the HPI. Past Medical History Past Medical History: Heart Failure, GERD/Reflux, Hyperlipidemia, Hypertension, Musculoskeletal Disorder, Osteoarthritis (OA) Additional Past Medical History / Comment(s): esophageal constriction in the past, aortic valve stenosis, RLS, past hx. of compression fx. in back after a fall, chronic back pain, dry cough - has seen Dr. Monson recently History of Any Multi-Drug Resistant Organisms: None Reported Past Surgical History: Cardiac Valve Replacement, Heart Catheterization Additional Past Surgical History / Comment(s): colonoscopy, EGD, МАРИНА, transcatheter aortic valve replacement completed 01/06/22 Past Anesthesia/Blood Transfusion Reactions: No Reported Reaction Past Psychological History: No Psychological Hx Reported Smoking Status: Former smoker Past Alcohol Use History: Occasional Past Drug Use History: None Reported - Past Family History Mother Family Medical History: No Reported History, Hypertension Father Family Medical History: No Reported History, Hypertension <Clarence Lucas - Last Filed: 07/15/24 14:31> General Exam Limitations: no limitations <Clarence Lucas - Last Filed: 07/15/24 14:31> General appearance: alert, in no apparent distress Head exam: Present: atraumatic, normocephalic, normal inspection Eye exam: Present: normal appearance, PERRL, EOMI. Absent: scleral icterus, conjunctival injection, periorbital swelling ENT exam: Present: normal exam, mucous membranes moist Neck exam: Present: normal inspection. Absent: tenderness, meningismus, lymphadenopathy Respiratory exam: Present: rales (right base). Absent: respiratory distress, wheezes, rhonchi, stridor Cardiovascular Exam: Present: regular rate, normal rhythm, normal heart sounds. Absent: systolic murmur, diastolic murmur, rubs, gallop, clicks GI/Abdominal exam: Present: soft, normal bowel sounds. Absent: distended, tenderness, guarding, rebound, rigid Extremities exam: Present: normal inspection, full ROM, normal capillary refill. Absent: tenderness, pedal edema, joint swelling, calf tenderness Back exam: Present: normal inspection Neurological exam: Present: alert, oriented X3, CN II-XII intact Psychiatric exam: Present: normal affect, normal mood Skin exam: Present: warm, dry, intact, normal color. Absent: rash <Rachelle Santos - Last Filed: 07/15/24 23:05> - General Exam Comments Initial Comments: Visual Physical Exam Vital signs reviewed General: Well-appearing, nontoxic, no acute distress. Patient seated in wheelchair Head: Normocephalic, atraumatic Eyes: PERRLA, EOMI ENT: Airway patent Chest: Nonlabored breathing Skin: No visual rash, normal skin tone Neuro: Alert and oriented 3 Musculoskeletal: No gross abnormalities (Clarence Lucas) Course Vital Signs 07/15/24 07/15/24 07/15/24 13:40 18:25 20:16 Temperature 98.5 F 98.4 F 98.5 F Pulse Rate 66 57 L 61 Respiratory 18 18 18 Rate Blood Pressure 96/56 138/72 125/75 O2 Sat by Pulse 95 95 94 L Oximetry 07/15/24 20:28 Temperature Pulse Rate 82 Respiratory Rate Blood Pressure O2 Sat by Pulse Oximetry Medical Decision Making <Clarence Lucas - Last Filed: 07/15/24 14:31> - Lab Data Result diagrams: 07/15/24 16:20 07/15/24 16:20 <TomRachelle Mona - Last Filed: 07/15/24 23:05> - Medical Decision Making I completed the quick note portion of this chart signed KATIE Santizo (Clarence Lucas) Was pt. sent in by a medical professional or institution (SISI Prater, MAIL ORDER SORTER, urgent care, hospital, or halfway...) When possible be specific @ -No Did you speak to anyone other than the patient for history (EMS, parent, family, police, friend...)? What history was obtained from this source @ -Spoke with for history Did you review nursing and triage notes (agree or disagree)? Why? @ -I reviewed and agree with nursing and triage notes Were old charts reviewed (outside hosp., previous admission, EMS record, old EKG, old radiological studies, urgent care reports/EKG's, halfway records)? Report findings @ -I reviewed chest x-ray from July 10 Differential Diagnosis (chest pain, altered mental status, abdominal pain women, abdominal pain men, vaginal bleeding, weakness, fever, dyspnea, syncope, he adache, dizziness, GI bleed, back pain, seizure, CVA, palpatations, mental health, musculoskeletal)? @ -Differential Dyspnea: Coronary syndrome, arrhythmia, tamponade, asthma, COPD, pulmonary embolism, pneumonia, pneumothorax, pulmonary effusion, anaphylaxis, diabetic ketoacidosis, flailed chest, pulmonary contusion, diaphragmatic rupture, anemia, neuromuscular, this is not meant to be an all-inclusive list. EKG interpreted by me (3pts min.). @ -Not done X-rays interpreted by me (1pt min.). @ -Yes and demonstrates right lower lobe pneumonia CT interpreted by me (1pt min.). @ -Yes and demonstrates right lower lobe pneumonia U/S interpreted by me (1pt. min.). @ -None done What testing was considered but not performed or refused? (CT, X-rays, U/S, labs)? Why? @ -None What meds were considered but not given or refused? Why? @ -None Did you discuss the management of the patient with other professionals (professionals i.e. DrChetan, PA, MAIL ORDER SORTER, lab, RT, psych nurse, social services coordinator, extraction supervisor, te acher, mounted police officer, case specialist)? Give summary @ -Spoke with Dr. Donnelly for admission Was smoking cessation discussed for >3mins.? @ -No Was critical care preformed (if so, how long)? @ -No Were there social determinants of health that impacted care today? How? (Homelessness, low income, unemployed, alcoholism, drug addiction, transportation, low edu. Level, literacy, decrease access to med. care, skilled nursing, rehab)? @ -No Was there de-escalation of care discussed even if they declined (Discuss DNR or withdrawal of care, Hospice)? DNR status @ -No What co-morbidities impacted this encounter? (DM, HTN, Smoking, COPD, CAD, Cancer, CVA, ARF, Chemo, Hep., AIDS, mental health diagnosis, sleep apnea, morbid obesity)? @ -Valvular disease Was patient admitted / discharged? Hospital course, mention meds given and route, prescriptions, significant lab abnormalities, going to OR and other pert inent info. @ -Upon arrival patient seen and evaluated in room 20. Thorough history and physical exam was performed. IV access was established. Laboratory studies were conducted. Chest x-ray was performed which demonstrates right lower lobe pneumonia. This is markedly changed from patient's previous chest x-ray done 5 days ago. May represent pulmonary contusion however patient does have fever and cough as clinical symptoms. Patient does have leukocytosis. Blood cultures are obtained and patient initiated on antibiotics. I did recommend admission for which the patient was agreeable. Spoke with Dr. Donnelly for the admission. We will recheck a white blood cell count in the morning. I did order a CT of the patient's chest as this was a planned study from a GI perspective. Patient was agreeable to this plan he was admitted to [facility] stable condition Undiagnosed new problem with uncertain prognosis? @ -No Drug Therapy requiring intensive monitoring for toxicity (Heparin, Nitro, Insulin, Cardizem)? @ -No Were any procedures done? @ -No Diagnosis/symptom? @ -Acute pyrexia, acute fall, right chest wall trauma, acute pneumonia Acute, or Chronic, or Acute on Chronic? @ -Acute Uncomplicated (without systemic symptoms) or Complicated (systemic symptoms)? @ -Complicated Side effects of treatment? @ -No Exacerbation, Progression, or Severe Exacerbation? @ -No Poses a threat to life or bodily function? How? (Chest pain, USA, VA, pneumonia, PE, COPD, DKA, ARF, appy, cholecystitis, CVA, Diverticulitis, Homicidal, Suicidal, threat to staff... and all critical care pts) @ -No (Rachelle Santos) - Lab Data Lab Results 07/15/24 07/15/24 07/15/24 Range/Units 16:20 16:20 16:20 WBC 16.4 H (3.8-10.6) k/uL RBC 4.28 L (4.30-5.90) m/uL Hgb 12.7 L (13.0-17.5) gm/dL Hct 40.1 (39.0-53.0) % MCV 93.8 (80.0-100.0) fL MCH 29.6 (25.0-35.0) pg MCHC 31.6 (31.0-37.0) g/dL RDW 13.8 (11.5-15.5) % Plt Count 200 (150-450) k/uL MPV 7.0 Neutrophils % 86 % Lymphocytes % 8 % Monocytes % 5 % Eosinophils % 1 % Basophils % 0 % Neutrophils # 14.0 H (1.3-7.7) k/uL Lymphocytes # 1.2 (1.0-4.8) k/uL Monocytes # 0.8 (0-1.0) k/uL Eosinophils # 0.1 (0-0.7) k/uL Basophils # 0.1 (0-0.2) k/uL Sodium 135 L (137-145) mmol/L Potassium 5.0 (3.5-5.1) mmol/L Chloride 104 (98-107) mmol/L Carbon Dioxide 26 (22-30) mmol/L Anion Gap 5 mmol/L BUN 26 H (9-20) mg/dL Creatinine 0.73 (0.66-1.25) mg/dL Est GFR (CKD-EPI)AfAm >90 (>60 ml/min/1.73 sqM) Est GFR (CKD-EPI)NonAf 87 (>60 ml/min/1.73 sqM) Glucose 74 (74-99) mg/dL Calcium 8.7 (8.4-10.2) mg/dL Total Bilirubin 1.3 (0.2-1.3) mg/dL AST 33 (17-59) U/L ALT 22 (4-49) U/L Alkaline Phosphatase 47 (38-126) U/L Total Protein 6.7 (6.3-8.2) g/dL Albumin 3.9 (3.5-5.0) g/dL Influenza Type A (PCR) Not Detected (Not Detectd) Influenza Type B (PCR) Not Detected (Not Detectd) RSV (PCR) Not Detected (Not Detectd) SARS-CoV-2 (PCR) Not Detected (Not Detectd) Disposition <Clarence Lucas - Last Filed: 07/15/24 14:31> Is patient prescribed a controlled substance at d/c from ED?: No Time of Disposition: 18:34 Decision to Admit Reason: Admit from EC Decision Date: 07/15/24 Decision Time: 18:34 <Rachelle Santos - Last Filed: 07/15/24 23:05> Clinical Impression: Pneumonia, Fever, Leukocytosis, Chest wall trauma Disposition: ADMITTED IP TO THIS HOSP Condition: Stable
[2024-07-15 16:32] LABS: Basophils # (A) 0.1 k/uL (0-0.2); Basophils % (A) 0 %; Eosinophils # (A) 0.1 k/uL (0-0.7); Eosinophils % (A) 1 %; HCT 40.1 % (39.0-53.0); HGB 12.7 gm/dL (13.0-17.5); Lymphocytes # (A) 1.2 k/uL (1.0-4.8); Lymphocytes % (A) 8 %; MCH 29.6 pg (25.0-35.0); MCHC 31.6 g/dL (31.0-37.0); MCV 93.8 fL (80.0-100.0); Monocytes # (A) 0.8 k/uL (0-1.0); Monocytes % (A) 5 %; Neutrophils % (A) 86 %; Platelet Count 200 k/uL (150-450); RBC 4.28 m/uL (4.30-5.90); RDW 13.8 % (11.5-15.5); WBC 16.4 k/uL (3.8-10.6)
[2024-07-15 16:48] LABS: ALT 22 U/L (4-49); African American GFR (CKD) >90 (>60 ml/min/1.73 sqM); Anion Gap 5 mmol/L; Blood Urea Nitrogen 26 mg/dL (9-20); Calcium 8.7 mg/dL (8.4-10.2); Carbon Dioxide 26 mmol/L (22-30); Chloride 104 mmol/L (98-107); Glucose 74 mg/dL (74-99); Non-African American GFR(CKD) 87 (>60 ml/min/1.73 sqM); Sodium 135 mmol/L (137-145)
[2024-07-15 16:49] LABS: AST 33 U/L (17-59); Albumin 3.9 g/dL (3.5-5.0); Total Bilirubin 1.3 mg/dL (0.2-1.3); Total Protein 6.7 g/dL (6.3-8.2)
[2024-07-15 16:50] LABS: Alkaline Phosphatase 47 U/L (38-126)
[2024-07-15] MEDS ORDERED: ONDANSETRON 4 MG/2 ML VIAL IVP PRN (18:34)
[2024-07-15] MEDS ORDERED: ACETAMINOPHEN TAB 325 MG TAB PO PRN (18:34)
[2024-07-15] MEDS ORDERED: RX INFO: IV CONTRAST WAS GIVEN 1 EACH MISC MISCELLANE PRN (18:40)
[2024-07-15] MEDS: PIPERACILLIN-TAZOBACTAM 3.375 GM in SODIUM CHLORIDE 0.9% 100 ML IVPB SCH (19:20)
[2024-07-15] MEDS: IPRATROPIUM-ALBUTEROL 3 ML NEB INHALATION SCH (20:16)
--- NOTE | 2024-07-15 20:42 | CT ---
EXAMINATION TYPE: CT chest w con DATE OF EXAM: 07/15/2024 7:54 PM COMPARISON: 10/04/2023 CLINICAL INDICATION: Male, 79 years old with history of aspiration, fall, blunt chest trauma, possibl e fx, aspiration, fall, blunt chest trauma, possible fx TECHNIQUE: Axial images were obtained at 5 mm thick sections. Reconstructed images are reviewed on [employer] computer in the coronal plane. Contrast used:100cc mL of Isovue 300 with IV Contrast, (none if empty) Oral contrast used: (none if empty) CT DLP: 391.4 mGycm, Automated exposure control for dose reduction was used. FINDINGS: Portion of the thyroid visualized is normal. Mild patchy infiltrates in the right lung and superior segment right lower lobe. Correlate for atelec tasis and pneumonia. Distribution is not typical for aspiration although portion of this could be att ributed to such. There may be some calcification along the right diaphragm. Consider prior asbestos e xposure. Some mild scattered pleural calcification can be related to prior asbestos exposure. No enlarged mediastinal or hilar adenopathy is evident. The ascending aorta diameter at the level o f the main pulmonary artery is 3.0 cm. The main pulmonary artery diameter at the bifurcation is 2.[address] sections are obtained through the upper abdomen. Abdomen is essentially unremarkable. No acute displaced rib fractures identified. There is some scoliosis within the thoracic spine. IMPRESSION: 1. Patchy infiltrate more likely related to an infectious etiology. Differential could include pulmon chelsea contusion. Aspiration is considered less likely. 2. Changes suggesting prior asbestos exposure. 3. Acute posttraumatic change is not otherwise apparent [facility], Workstation: [facility], 07/15/2024 8:40 PM
[2024-07-15] MEDS ORDERED: ALBUTEROL NEBULIZED 2.5 MG/3 ML INHALATION PRN (21:38)
[2024-07-15] MEDS ORDERED: GABAPENTIN 400 MG CAP PO PRN (21:38)
[2024-07-15] MEDS: HYDROcodone/APAP 10-325MG 1 EACH TAB PO SCH (22:46)
[2024-07-15] MEDS: METOPROLOL TARTRATE 25 MG TAB PO SCH (22:47)
[2024-07-15] MEDS: MELATONIN 3 MG TABLET PO PRN (22:47)
[2024-07-16] MEDS: SODIUM CHLORIDE 0.9% 1,000 ML IV SCH (00:29)
[2024-07-16] MEDS: PANTOPRAZOLE 40 MG TABLET PO SCH (06:58)
[2024-07-16] MEDS: ATORVASTATIN 20 MG TAB PO SCH (08:38)
[2024-07-16] MEDS: EZETIMIBE 10 MG TAB PO SCH (08:38)
[2024-07-16] MEDS: lisinopriL 20 MG TAB PO SCH (08:38)
[2024-07-16] MEDS: ASPIRIN 81 MG PO SCH (08:39)
[2024-07-16] MEDS: MELOXICAM 7.5 MG TAB PO SCH (08:40)
[2024-07-16] MEDS: METOCLOPRAMIDE 5 MG TAB PO SCH (08:41)
[2024-07-16] MEDS: rOPINIRole HCL 4 MG TABLET PO SCH (08:42)
[2024-07-16 08:46] LABS: Basophils # (A) 0.02 X 10*3/uL (0.00-0.10); Basophils % (A) 0.2 %; Eosinophils # (A) 0.09 X 10*3/uL (0.04-0.35); Eosinophils % (A) 0.9 %; HCT 34.5 % (39.6-50.0); HGB 10.8 g/dL (13.0-17.0); Lymphocytes # (A) 1.09 X 10*3/uL (0.90-5.00); Lymphocytes % (A) 11.2 %; MCH 29.1 pg (27.0-32.0); MCHC 31.3 g/dL (32.0-37.0); Mean Platelet Volume 9.8 FL (9.5-12.2); Monocytes # (A) 0.87 X 10*3/uL (0.20-1.00); Monocytes % (A) 8.9 %; NRBC Per 100 WBC 0 X 10*3/uL (0.00-0.01); Neutrophils # (A) 7.65 X 10*3/uL (1.80-7.70); Neutrophils % (A) 78.4 %; Platelet Count 175 X 10*3/uL (140-440); RBC 3.71 X 10*6/uL (4.40-5.60); RDW 14.4 % (11.5-14.5); WBC 9.76 X 10*3/uL (4.50-10.00)
[2024-07-16 08:50] LABS: ALT 16 U/L (10-49); AST 13 U/L (14-35); Albumin 3.4 g/dL (3.8-4.9); Alkaline Phosphatase 62 U/L (41-126); Blood Urea Nitrogen 19.6 mg/dL (9.0-27.0); Calcium 8.3 mg/dL (8.7-10.3); Carbon Dioxide 24.2 mmol/L (21.6-31.8); Chloride 106 mmol/L (96-109); Glucose 121 mg/dL (70-110); Potassium 4.2 mmol/L (3.5-5.5); Sodium 142 mmol/L (135-145); Total Bilirubin 0.7 mg/dL (0.3-1.2); Total Protein 5.4 g/dL (6.2-8.2)
[2024-07-16] MEDS: ENOXAPARIN 40 MG/0.4 ML SYRINGE SQ SCH (11:13)
[2024-07-16] MEDS: PRAMIPEXOLE 0.5 MG TAB PO SCH (20:26)
--- NOTE | 2024-07-16 21:06 | P.HPIM ---
History of Present Illness H&P Date: 07/16/24 Chief Complaint: Short of breath Pleasant 79-year-old patient, follows with Dr. Stewart Ramos. Human Resources Operations Manager Dr. Oliveira and technical producer Dr. Monson. Medical conditions include GERD, hypertension, hyperlipidemia, osteoarthritis, esophageal stricture constriction in the past, aortic valve stenosis, restless leg syndrome. Chronic back pain from a fall in his younger days. Ex-smoker. Patient had a fever yesterday. Tuesday that is 3 days ago patient took a fall in the garage on a large container with frozen water. On the l right chest wall. Unable to take a deep breath since then. Short of breath. Had a fever 101 at home. Cough. Presented to the ER. Found of a pneumonia. Started on IV Zosyn. Feeling a bit better this morning. Review of systems: GEN.: Fever tired EYES: None HEENT: None NECK: None RESPIRATORY: As above CARDIOVASCULAR: None GASTROINTESTINAL: None GENITOURINARY: None MUSCULOSKELETAL: Chronic low back pain LYMPHATICS: None HEMATOLOGICAL: None PSYCHIATRY: None NEUROLOGICAL: None Social history: Smoked less than a pack half a pack a day for 20 years stopped about 40 years ago. 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 . Physical examination: VITAL SIGNS: Temperature 101 at home, 66, 18, 96 x 56, 95% room air upon presentation GENERAL: BMI 27.5, sitting edge of the bed, slightly short of breath EYES: Pupils equal. Conjunctiva hugh l. HEENT: External appearance of nose and ears normal, oral cavity grossly normal. NECK: JVD not raised; masses not palpable. HEART: First and second heart sounds are normal; no edema. LUNGS: Respiratory rate increased, diminished breath sounds., Some left basal crackles ABDOMEN: Soft, nontender, liver spleen not palpable, no masses palpable. PSYCH: Alert and oriented x3; mood and affect hugh l. MUSCULOSKELETAL:No Clubbing/cyanosis;muscles-grossly intact. OA NEUROLOGICAL: Cranial nerves grossly intact; no facial asymmetry, power and sensation grossly intact. LYMPHATICS: No lymph nodes palpable in the axilla and neck INVESTIGATIONS, reviewed in the clinical context: July 16: White count 9.7 hemoglobin 10.8 platelets 175 potassium 4.2 creatinine 0.8 Influenza type A, type B, RSV, COVID-19: Not detected July 15: White count 16.4 hemoglobin 12.7 platelets 200 sodium 135 potassium 5 BUN 26 creatinine 0.73. Chest x-ray film personally reviewed by me-basilar infiltrate specially right side CT chest: Patchy infiltrate more likely related to infectious etiology. Assessment plan: -Complicated multilobar right-sided pneumonia suspect gram-negative organism causing sepsis. Had a fever of 101 at home. Initial white count of 16.4 IV Zosyn -Possible right lung contusion secondary to blunt injury 2 days ago. Incentive spirometry - sepsis secondary to pneumonia IV fluids. IV antibiotics -Restless leg syndrome Requip 4 mg twice daily -Chronic low back pain from prior injury Neurontin 400 mg 3 times daily as needed. Mobic. [place] 10. -COPD in a previous smoker DuoNeb -GERD Lansoprazole 30 mg daily -Essential hypertension currently blood pressure running low Zestril. Lopressor -Hyperlipidemia Zetia 10 mg a day -Full code Care was discussed with the patient. Given the complexity and severity of patient's condition expect the patient to be in the hospital at least for 2 overnights Past Medical History Past Medical History: Heart Failure, GERD/Reflux, Hyperlipidemia, Hypertension, Musculoskeletal Disorder, Osteoarthritis (OA) Additional Past Medical History / Comment(s): esophageal constriction in the past, aortic valve stenosis, RLS, past hx. of compression fx. in back after a fall, chronic back pain, dry cough - has seen Dr. Monson recently History of Any Multi-Drug Resistant Organisms: None Reported Past Surgical History: Cardiac Valve Replacement, Heart Catheterization Additional Past Surgical History / Comment(s): colonoscopy, EGD, МАРИНА, transcatheter aortic valve replacement completed 01/06/22 Past Anesthesia/Blood Transfusion Reactions: No Reported Reaction Past Psychological History: No Psychological Hx Reported Smoking Status: Former smoker Past Alcohol Use History: Occasional Additional Past Alcohol Use History / Comment(s): quit smoking 40 yrs. ago, smoked for 20 yrs. <1/2ppd Past Drug Use History: None Reported - Past Family History Mother Family Medical History: No Reported History, Hypertension Father Family Medical History: No Reported History, Hypertension Medications and Allergies Home Medications Medication Instructions Recorded Confirmed Type Aspirin EC [Ecotrin Low Dose] 81 mg PO DAILY 11/02/21 07/15/24 History Ezetimibe [Zetia] 10 mg PO DAILY 11/02/21 07/15/24 History Gabapentin [Neurontin] 400 mg PO TID PRN 11/02/21 07/15/24 History HYDROcodone/APAP 10-325MG [[place] 1 tab PO QID 11/02/21 07/15/24 History 10-325] Lansoprazole 30 mg PO DAILY 11/02/21 07/15/24 History Meloxicam [Mobic] 15 mg PO DAILY 11/02/21 07/15/24 History Metoprolol Tartrate [Lopressor] 25 mg PO BID 11/02/21 07/15/24 History lisinopriL [Zestril] 20 mg PO DAILY 11/02/21 07/15/24 History modafiniL [Provigil] 200 mg PO DAILY 11/02/21 07/15/24 History rOPINIRole HCL [Requip] 4 mg PO BID 11/02/21 07/15/24 History Pramipexole [Mirapex] 0.5 mg PO HS 11/17/21 07/15/24 History Metoclopramide [Reglan] 5 mg PO DAILY 10/17/23 07/15/24 History Rosuvastatin [Crestor] 10 mg PO DAILY 10/17/23 07/15/24 History Albuterol Inhaler [Ventolin Hfa 2 puff INHALATION RT-Q6H PRN 07/15/24 07/15/24 History Inhaler] Allergies Allergy/AdvReac Type Severity Reaction Status Date / Time No Known Allergies Allergy Verified 07/15/24 20:02 Physical Exam Vitals: Vital Signs Temp Pulse Pulse Resp BP Pulse Ox 07/16/24 15:09 78 07/16/24 14:58 76 07/16/24 13:11 97.6 F 70 18 151/62 98 07/16/24 11:05 74 07/16/24 10:55 70 07/16/24 07:45 72 07/16/24 07:34 68 07/16/24 06:59 97.9 F 60 18 119/50 97 07/16/24 04:07 80 07/16/24 03:59 86 07/16/24 02:20 98.0 F 51 L 19 123/72 96 07/16/24 00:00 85 07/15/24 23:52 88 07/15/24 21:25 97.8 F 59 L 17 175/88 93 L Intake and Output 07/16/24 07/16/24 07/16/24 06:59 14:59 22:59 Intake Total 520 Output Total 0 Balance 520 Intake: Oral 520 Output: Urine 0 Other: # Voids 1 Results CBC & Chem 7: 07/16/24 03:51 07/16/24 03:51 Labs: Abnormal Lab Results - Last 24 Hours (Table) 07/16/24 07/16/24 Range/Units 03:51 03:51 RBC 3.71 L (4.40-5.60) X 10*6/uL Hgb 10.8 L (13.0-17.0) g/dL Hct 34.5 L (39.6-50.0) % MCHC 31.3 L (32.0-37.0) g/dL BUN/Creatinine Ratio 24.50 H (12.00-20.00) Ratio Glucose 121 H (70-110) mg/dL Calcium 8.3 L (8.7-10.3) mg/dL AST 13 L (14-35) U/L Total Protein 5.4 L (6.2-8.2) g/dL Albumin 3.4 L (3.8-4.9) g/dL Thrombosis Risk Factor Assmnt - Choose All That Apply Any of the Below Risk Factors Present?: Yes Each Factor Represents 1 point: Obesity (BMI >25) Each Risk Factor Represents 3 Points: Age 75 years or older Thrombosis Risk Factor Assessment Total Risk Factor Score: 4 Thrombosis Risk Factor Assessment Level: Moderate Risk
[2024-07-17 07:52] VITALS: BP 141/78; RESP 16; TEMP 98.1
[2024-07-17 11:30] VITALS: PULSE 64
--- NOTE | 2024-07-17 18:19 | P.DS ---
Providers Date of admission: 07/16/24 21:05 Expected date of discharge: 07/17/24 Attending physician: Charles Donnelly Primary care physician: Stewart Ramos [facility] Course: Chief Complaint: Short of breath Pleasant 79-year-old patient, follows with Dr. Stewart Ramos. Molasses And Caramel Operator Dr. Oliveira and electric power machine operator Dr. Monson. Medical conditions include GERD, hypertension, hyperlipidemia, osteoarthritis, esophageal stricture constriction in the past, aortic valve stenosis, restless leg syndrome. Chronic back pain from a fall in his younger days. Ex-smoker. Patient had a fever yesterday. Tuesday that is 3 days ago patient took a fall in the garage on a large container with frozen water. On the l right chest wall. Unable to take a deep breath since then. Short of breath. Had a fever 101 at home. Cough. Presented to the ER. Found of a pneumonia. Started on IV Zosyn. Feeling a bit better this morning. July 17: Admitted with pneumonia right-sided. Possible underlying lung contusion. Doing much better today. Doing well on pulse ox on room air. Respiratory symptoms much improved. Very keen to go home. Discussed with patient at the bedside. Eating well. Will complete 3 more days of Augmentin. Told to continue using incentive spirometry. Questions answered. Discussion and discharge planning more than 35 minutes Social history: Smoked less than a pack half a pack a day for 20 years stopped about 40 years ago. 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 . Physical examination: VITAL SIGNS: 98.1, 65, 16, 141 x 78, 97% room air GENERAL: Sitting up in chair, eating lunch comfortable EYES: Pupils equal. Conjunctiva hugh l. HEENT: External appearance of nose and ears normal, oral cavity grossly normal. NECK: JVD not raised; masses not palpable. HEART: First and second heart sounds are normal; no edema. LUNGS: Respiratory rate normal, proved air entry ABDOMEN: Soft, nontender, liver spleen not palpable, no masses palpable. PSYCH: Alert and oriented x3; mood and affect hugh l. MUSCULOSKELETAL:No Clubbing/cyanosis;muscles-grossly intact. OA INVESTIGATIONS, reviewed in the clinical context: July 16: White count 9.7 hemoglobin 10.8 platelets 175 potassium 4.2 creatinine 0.8 Influenza type A, type B, RSV, COVID-19: Not detected July 15: White count 16.4 hemoglobin 12.7 platelets 200 sodium 135 potassium 5 BUN 26 creatinine 0.73. Chest x-ray film personally reviewed by me-basilar infiltrate specially right side CT chest: Patchy infiltrate more likely related to infectious etiology. Assessment plan: -Complicated multilobar right-sided pneumonia suspect gram-negative organism causing sepsis.: Much better Had a fever of 101 at home. Initial white count of 16.4 IV Zosyn Discharged on Augmentin 875 twice daily for 3 days -Possible right lung contusion secondary to blunt injury 2 days ago.: Clinically better Incentive spirometry - sepsis secondary to pneumonia IV fluids. IV antibiotics -Restless leg syndrome Requip 4 mg twice daily -Chronic low back pain from prior injury Neurontin 400 mg 3 times daily as needed. Mobic. Zortman 10. -COPD in a previous smoker DuoNeb -GERD Lansoprazole 30 mg daily -Essential hypertension currently blood pressure running low Zestril. Lopressor -Hyperlipidemia Zetia 10 mg a day -Full code Disposition: Home Past Medical History Past Medical History: Heart Failure, GERD/Reflux, Hyperlipidemia, Hypertension, Musculoskeletal Disorder, Osteoarthritis (OA) Additional Past Medical History / Comment(s): esophageal constriction in the past, aortic valve stenosis, RLS, past hx. of compression fx. in back after a fall, chronic back pain, dry cough - has seen Dr. Monson recently History of Any Multi-Drug Resistant Organisms: None Reported Past Surgical History: Cardiac Valve Replacement, Heart Catheterization Additional Past Surgical History / Comment(s): colonoscopy, EGD, МАРИНА, transcatheter aortic valve replacement completed 01/06/22 Past Anesthesia/Blood Transfusion Reactions: No Reported Reaction Past Psychological History: No Psychological Hx Reported Smoking Status: Former smoker Past Alcohol Use History: Occasional Additional Past Alcohol Use History / Comment(s): quit smoking 40 yrs. ago, smoked for 20 yrs. <1/2ppd Past Drug Use History: None Reported Plan - Discharge Summary Discharge Rx Participant: No New Discharge Prescriptions: New Amoxic-Pot Clav 875-125Mg [Augmentin 875-125] 1 tab PO Q12HR 1 Days #6 tab Continue rOPINIRole HCL [Requip] 4 mg PO BID modafiniL [Provigil] 200 mg PO DAILY lisinopriL [Zestril] 20 mg PO DAILY Metoprolol Tartrate [Lopressor] 25 mg PO BID Meloxicam [Mobic] 15 mg PO DAILY Aspirin EC [Ecotrin Low Dose] 81 mg PO DAILY Lansoprazole 30 mg PO DAILY HYDROcodone/APAP 10-325MG [Zortman 10-325] 1 tab PO QID Gabapentin [Neurontin] 400 mg PO TID PRN PRN Reason: Pain Pramipexole [Mirapex] 0.5 mg PO HS Metoclopramide [Reglan] 5 mg PO DAILY Rosuvastatin [Crestor] 10 mg PO DAILY Ezetimibe [Zetia] 10 mg PO DAILY Albuterol Inhaler [Ventolin Hfa Inhaler] 2 puff INHALATION RT-Q6H PRN PRN Reason: Shortness Of Breath Or Wheezing Discharge Medication List Aspirin EC [Ecotrin Low Dose] 81 mg PO DAILY 11/02/21 [History] Ezetimibe [Zetia] 10 mg PO DAILY 11/02/21 [History] Gabapentin [Neurontin] 400 mg PO TID PRN 11/02/21 [History] HYDROcodone/APAP 10-325MG [Zortman 10-325] 1 tab PO QID 11/02/21 [History] Lansoprazole 30 mg PO DAILY 11/02/21 [History] Meloxicam [Mobic] 15 mg PO DAILY 11/02/21 [History] Metoprolol Tartrate [Lopressor] 25 mg PO BID 11/02/21 [History] lisinopriL [Zestril] 20 mg PO DAILY 11/02/21 [History] modafiniL [Provigil] 200 mg PO DAILY 11/02/21 [History] rOPINIRole HCL [Requip] 4 mg PO BID 11/02/21 [History] Pramipexole [Mirapex] 0.5 mg PO HS 11/17/21 [History] Metoclopramide [Reglan] 5 mg PO DAILY 10/17/23 [History] Rosuvastatin [Crestor] 10 mg PO DAILY 10/17/23 [History] Albuterol Inhaler [Ventolin Hfa Inhaler] 2 puff INHALATION RT-Q6H PRN 07/15/24 [History] Amoxic-Pot Clav 875-125Mg [Augmentin 875-125] 1 tab PO Q12HR 1 Days #6 tab 07/17/24 [Rx] Follow up Appointment(s)/Referral(s): Stewart Ramos MD [Primary Care Provider] - 1-2 days (please call office for follow up appointment. office closed at time of discharge) Patient Instructions/Handouts: Pneumonia (DC) Discharge Disposition: HOME SELF-CARE
== END 2024-07-17 13:03 | disposition home or self-care (01) | DRG 871 ==
LOC: EC 13:08 → 4SSUR 18:34 → OBSVTOIN 07-16 21:05
PROVIDERS: ADMIT Hospitalist; ATTEND Hospitalist
DX: A41.50 Gram-negative sepsis, unspecified (principal); J15.69 Pneumonia due to other Gram-negative bacteria; S27.321A Contusion of lung, unilateral, initial encounter; I11.0 Hypertensive heart disease with heart failure; I50.9 Heart failure, unspecified; J44.9 Chronic obstructive pulmonary disease, unspecified; G25.81 Restless legs syndrome; Z95.2 Presence of prosthetic heart valve; E78.5 Hyperlipidemia, unspecified; G89.29 Other chronic pain; M54.50 Low back pain, unspecified; M19.90 Unspecified osteoarthritis, unspecified site; K21.9 Gastro-esophageal reflux disease without esophagitis; Z79.82 Long term (current) use of aspirin; Z79.1 Long term (current) use of non-steroidal anti-inflammatories (NSAID); Z79.891 Long term (current) use of opiate analgesic; Z79.899 Other long term (current) drug therapy; Z87.891 Personal history of nicotine dependence; Z87.01 Personal history of pneumonia (recurrent); W01.0XXA Fall on same level from slipping, tripping and stumbling without subsequent striking against object, initial encounter; Y92.015 Private garage of single-family (private) house as the place of occurrence of the external cause
CPT/HCPCS: 36415; 71046; 71260; 80053; 85025; 87040; 87636; 94640; 96365; 99285

== ENCOUNTER 2024-11-08 11:19 | Inpatient (IN) | payer MEDICARE ==
--- NOTE | 2024-11-08 11:37 | ED ---
Fever HPI - General Chief Complaint: Fever Stated Complaint: fever, cough Time Seen by Provider: 11/08/24 11:32 Source: patient, RN notes reviewed Mode of arrival: ambulatory Limitations: no limitations - History of Present Illness Initial Comments: This is an 79-year-old male with history including heart failure, hypertension and hyperlipidemia presenting for fever and fatigue x 1 hour. Endorses history and suspicion of pneumonia. Endorses last receiving Tylenol at 1015 today. Denies chills, cough, hemoptysis, dyspnea, chest pain, abdominal pain, N/V/D. MD Complaint: fever Onset/Timin -: hour(s) Temperature Source: oral Treatments Prior to Arrival: Acetaminophen (1015) - Related Data Home Medications Medication Instructions Recorded Confirmed Ezetimibe [Zetia] 10 mg PO DAILY 11/02/21 11/08/24 Gabapentin [Neurontin] 400 mg PO QID 11/02/21 11/08/24 HYDROcodone/APAP 10-325MG [Arp 1 tab PO Q6H PRN 11/02/21 11/08/24 10-325] Lansoprazole 30 mg PO DAILY 11/02/21 11/08/24 Meloxicam [Mobic] 15 mg PO DAILY 11/02/21 11/08/24 Metoprolol Tartrate [Lopressor] 25 mg PO BID 11/02/21 11/08/24 lisinopriL [Zestril] 20 mg PO DAILY 11/02/21 11/08/24 modafiniL [Provigil] 200 mg PO DAILY 11/02/21 11/08/24 rOPINIRole HCL [Requip] 4 mg PO BID 11/02/21 11/08/24 Rosuvastatin [Crestor] 10 mg PO DAILY 10/17/23 11/08/24 Albuterol Inhaler [Ventolin Hfa 2 puff INHALATION RT-Q4H PRN 07/15/24 11/08/24 Inhaler] Sildenafil Citrate 100 mg PO DAILY PRN 11/08/24 11/08/24 Allergies Allergy/AdvReac Type Severity Reaction Status Date / Time No Known Allergies Allergy Verified 11/08/24 17:15 Review of Systems ROS Statement: Those systems with pertinent positive or pertinent negative responses have been documented in the HPI. ROS Other: All systems not noted in ROS Statement are negative. Past Medical History Past Medical History: Heart Failure, GERD/Reflux, Hyperlipidemia, Hypertension, Musculoskeletal Disorder, Osteoarthritis (OA) Additional Past Medical History / Comment(s): esophageal constriction in the past, aortic valve stenosis, RLS, past hx. of compression fx. in back after a fall, chronic back pain, dry cough - has seen Dr. 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 Past Anesthesia/Blood Transfusion Reactions: No Reported Reaction Past Psychological History: No Psychological Hx Reported Smoking Status: Former smoker Past Alcohol Use History: Occasional Past Drug Use History: None Reported - Past Family History Mother Family Medical History: No Reported History, Hypertension Father Family Medical History: No Reported History, Hypertension General Exam Limitations: no limitations General appearance: alert, in no apparent distress Head exam: Present: atraumatic, normocephalic, normal inspection Eye exam: Present: normal appearance, PERRL, EOMI. Absent: scleral icterus, conjunctival injection, periorbital swelling ENT exam: Present: normal exam, normal oropharynx, mucous membranes moist, TM's normal bilaterally Neck exam: Present: normal inspection. Absent: tenderness, meningismus, lymphadenopathy Respiratory exam: Present: normal lung sounds bilaterally. Absent: respiratory distress, wheezes, rales, rhonchi, stridor, accessory muscle use, decreased breath sounds, prolonged expiratory Cardiovascular Exam: Present: regular rate, normal rhythm, systolic murmur (3/6). Absent: diastolic murmur, rubs, gallop, clicks GI/Abdominal exam: Present: soft, normal bowel sounds. Absent: distended, tenderness, guarding, rebound, rigid Extremities exam: Present: normal inspection, full ROM, normal capillary refill. Absent: tenderness, pedal edema, joint swelling, calf tenderness Back exam: Present: normal inspection Neurological exam: Present: alert, oriented X3, CN II-XII intact Psychiatric exam: Present: normal affect, normal mood Skin exam: Present: warm, dry, intact, normal color. Absent: rash Course Vital Signs 11/08/24 11/08/24 11/08/24 11:23 11:50 14:49 Temperature 101.7 F H 98.8 F Pulse Rate 63 67 Respiratory 24 22 18 Rate Blood Pressure 117/62 90/51 O2 Sat by Pulse 92 L 97 Oximetry 11/08/24 11/08/24 11/08/24 15:44 17:04 18:45 Temperature Pulse Rate 60 60 57 L Respiratory 18 18 18 Rate Blood Pressure 108/59 115/51 O2 Sat by Pulse 90 L 92 L 97 Oximetry 11/08/24 19:02 Temperature Pulse Rate 55 L Respiratory 18 Rate Blood Pressure 81/38 O2 Sat by Pulse 96 Oximetry Medical Decision Making - Medical Decision Making Was pt. sent in by a medical professional or institution (, PA, WAREHOUSE SUPERVISOR, urgent care, hospital, or [facility]...) When possible be specific @ -No Did you speak to anyone other than the patient for history (EMS, parent, family, police, friend...)? What history was obtained from this source @ - provided majority of HPI Did you review nursing and triage notes (agree or disagree)? Why? @ -I reviewed and agree with nursing and triage notes Were old charts reviewed (outside hosp., previous admission, EMS record, old EKG, old radiological studies, urgent care reports/EKG's, [facility] records)? Report findings @ -No old charts were reviewed Differential Diagnosis (chest pain, altered mental status, abdominal pain women, abdominal pain men, vaginal bleeding, weakness, fever, dyspnea, syncope, headache, dizziness, GI bleed, back pain, seizure, CVA, palpatations, mental health, musculoskeletal)? @ -Differential Fever: Pneumonia, viral URI, endocarditis, myocarditis, pericarditis, otitis, sinusitis, peritonsillar Abscess, retropharyngeal Abscess, epiglottitis, peritonitis, appendicitis, Wendy cystitis, diverticulitis, hepatitis, colitis, UTI, PID, TOA, pyelonephritis, prostatitis, epididymitis, meningitis, encephali tis, pulmonary embolism, CVA, thyroid storm, pancreatitis, adrenal crisis, cavernous sinus thrombosis, this is not meant to be an all-inclusive list. EKG interpreted by me (3pts min.). @ -Not done X-rays interpreted by me (1pt min.). @ -CXR shows right perihilar infiltrate. CT interpreted by me (1pt min.). @ -None done U/S interpreted by me (1pt. min.). @ -None done What testing was considered but not performed or refused? (CT, X-rays, U/S, labs)? Why? @ -None What meds were considered but not given or refused? Why? @ -None Did you discuss the management of the patient with other professionals (professionals i.e. , PA, WAREHOUSE SUPERVISOR, lab, RT, psych nurse, group social worker, image scientist, teacher, community arts officer, case resource manager)? Give summary @ -Spoke to Dr. Donnelly for admission due to elevated curb score along with hypoxia. Was smoking cessation discussed for >3mins.? @ -No Was critical care preformed (if so, how long)? @ -No Were there social determinants of health that impacted care today? How? (Homelessness, low income, unemployed, alcoholism, drug addiction, transportation, low edu. Level, literacy, decrease access to med. care, alf, rehab)? @ -No Was there de-escalation of care discussed even if they declined (Discuss DNR or withdrawal of care, Hospice)? DNR status @ -No What co-morbidities impacted this encounter? (DM, HTN, Smoking, COPD, CAD, Cancer, CVA, ARF, Chemo, Hep., AIDS, mental health diagnosis, sleep apnea, morbid obesity)? @ -None Was patient admitted / discharged? Hospital course, mention meds given and route, prescriptions, significant lab abnormalities, going to OR and other pertinent info. @ -CXR shows right perihilar infiltrate. Lab work shows leukocytosis 13.0 with left shift, BUN 36 and hyperglycemia 127. Cepheid test negative, CURB-65 score of 2. Patient initially provided p.o. Motrin 600. Given IV normal saline, Rocephin and p.o. azithromycin. Spoke to Dr. Donnelly for admission due to elevated curb score along with hypoxia. Discussed patient with Dr. Villasenor Undiagnosed new problem with uncertain prognosis? @ -No Drug Therapy requiring intensive monitoring for toxicity (Heparin, Nitro, Insulin, Cardizem)? @ -No Were any procedures done? @ -No Diagnosis/symptom? @ -Pneumonia Acute, or Chronic, or Acute on Chronic? @ -Acute Uncomplicated (without systemic symptoms) or Complicated (systemic symptoms)? @ -Complicated Side effects of treatment? @ -No Exacerbation, Progression, or Severe Exacerbation? @ -No Poses a threat to life or bodily function? How? (Chest pain, [place], [place], pneumonia, PE, COPD, DKA, ARF, appy, cholecystitis, CVA, Diverticulitis, Homicidal, Suicidal, threat to staff... and all critical care pts) @ -Pneumonia - Lab Data Result diagrams: 11/08/24 13:19 11/08/24 13:19 Lab Results 11/08/24 11/08/24 11/08/24 Range/Units 11:46 13:19 13:19 WBC 13.04 H (4.50-10.00) 10*3/uL RBC 4.47 (4.40-5.60) 10*6/uL Hgb 12.8 L (13.0-17.0) g/dL Hct 40.1 (39.6-50.0) % MCV 89.7 (80.0-97.0) fL MCH 28.6 (27.0-32.0) pg MCHC 31.9 L (32.0-37.0) g/dL Plt Count 189 (140-440) 10*3/uL MPV 9.3 L (9.5-12.2) fL Immature Gran % (Auto) 0.4 % Neutrophils % 90.2 % Lymphocytes % 3.9 % Monocytes % 5.2 % Eosinophils % 0.1 % Basophils % 0.2 % Immature Gran # 0.05 H (0.00-0.04) 10*3/uL Neutrophils # 11.77 H (1.80-7.70) 10*3/uL Lymphocytes # 0.51 L (0.90-5.00) 10*3/uL Monocytes # 0.68 (0.20-1.00) 10*3/uL Eosinophils # 0.01 L (0.04-0.35) 10*3/uL Basophils # 0.02 (0.00-0.10) 10*3/uL Sodium 136 L (137-145) mmol/L Potassium 4.3 (3.5-5.1) mmol/L Chloride 103 (98-107) mmol/L Carbon Dioxide 28 (22-30) mmol/L Anion Gap 5 mmol/L BUN 36 H (9-20) mg/dL Creatinine 0.88 (0.66-1.25) mg/dL Est GFR (CKD-EPI)AfAm >90 (>60 ml/min/1.73 sqM) Est GFR (CKD-EPI)NonAf 81 (>60 ml/min/1.73 sqM) Glucose 127 H (74-99) mg/dL Plasma Lactic Acid Krishna (0.7-2.0) mmol/L Calcium 8.8 (8.4-10.2) mg/dL Total Bilirubin 0.9 (0.2-1.3) mg/dL AST 41 (17-59) U/L ALT 35 (4-49) U/L Alkaline Phosphatase 87 (38-126) U/L Total Protein 6.5 (6.3-8.2) g/dL Albumin 3.8 (3.5-5.0) g/dL Influenza Type A (PCR) Not Detected (Not Detectd) Influenza Type B (PCR) Not Detected (Not Detectd) RSV (PCR) Not Detected (Not Detectd) SARS-CoV-2 (PCR) Not Detected (Not Detectd) 11/08/24 Range/Units 13:19 WBC (4.50-10.00) 10*3/uL RBC (4.40-5.60) 10*6/uL Hgb (13.0-17.0) g/dL Hct (39.6-50.0) % MCV (80.0-97.0) fL MCH (27.0-32.0) pg MCHC (32.0-37.0) g/dL Plt Count (140-440) 10*3/uL MPV (9.5-12.2) fL Immature Gran % (Auto) % Neutrophils % % Lymphocytes % % Monocytes % % Eosinophils % % Basophils % % Immature Gran # (0.00-0.04) 10*3/uL Neutrophils # (1.80-7.70) 10*3/uL Lymphocytes # (0.90-5.00) 10*3/uL Monocytes # (0.20-1.00) 10*3/uL Eosinophils # (0.04-0.35) 10*3/uL Basophils # (0.00-0.10) 10*3/uL Sodium (137-145) mmol/L Potassium (3.5-5.1) mmol/L Chloride (98-107) mmol/L Carbon Dioxide (22-30) mmol/L Anion Gap mmol/L BUN (9-20) mg/dL Creatinine (0.66-1.25) mg/dL Est GFR (CKD-EPI)AfAm (>60 ml/min/1.73 sqM) Est GFR (CKD-EPI)NonAf (>60 ml/min/1.73 sqM) Glucose (74-99) mg/dL Plasma Lactic Acid Krishna 1.3 (0.7-2.0) mmol/L Calcium (8.4-10.2) mg/dL Total Bilirubin (0.2-1.3) mg/dL AST (17-59) U/L ALT (4-49) U/L Alkaline Phosphatase (38-126) U/L Total Protein (6.3-8.2) g/dL Albumin (3.5-5.0) g/dL Influenza Type A (PCR) (Not Detectd) Influenza Type B (PCR) (Not Detectd) RSV (PCR) (Not Detectd) SARS-CoV-2 (PCR) (Not Detectd) Disposition Clinical Impression: Pneumonia Disposition: ADMITTED IP TO THIS HOSP Condition: Good Is patient prescribed a controlled substance at d/c from ED?: No Time of Disposition: 14:12 Decision Date: 11/08/24 Decision Time: 14:12
[2024-11-08] MEDS: IBUPROFEN 600 MG TAB PO STA (11:58)
--- NOTE | 2024-11-08 12:21 | XR ---
EXAMINATION TYPE: XR chest 2V DATE OF EXAM: 11/08/2024 11:54 AM COMPARISON: 07/15/2024 CLINICAL INDICATION: Male, 79 years old with history of Fever, fatigue, TECHNIQUE: XR chest 2V view(s) obtained. FINDINGS: The heart size is normal. The pulmonary vasculature is prominent. There is ill-defined opacity through the right lung. Correlate for pneumonia. Atypical pulmonary karena a can be considered. IMPRESSION: 1. Right perihilar infiltrate. Correlate for pneumonia or atypical pulmonary edema. Continued follow- up is recommended. [facility], , 11/08/2024 12:18 PM
[2024-11-08 12:39] LABS: Influenza A Not Detected (Not Detectd); Influenza B Not Detected (Not Detectd); RSV Not Detected (Not Detectd)
[2024-11-08] MEDS: cefTRIAXone 2 GM VIAL IM STA (13:06)
[2024-11-08] MEDS: AZITHROMYCIN 500 MG TAB PO STA (13:20)
[2024-11-08] MEDS: SODIUM CHLORIDE 0.9% 500 ML 500 ML IV STA (13:32)
[2024-11-08 13:36] LABS: Basophils # (A) 0.02 10*3/uL (0.00-0.10); Basophils % (A) 0.2 %; Eosinophils # (A) 0.01 10*3/uL (0.04-0.35); Eosinophils % (A) 0.1 %; HCT 40.1 % (39.6-50.0); HGB 12.8 g/dL (13.0-17.0); Lymphocytes # (A) 0.51 10*3/uL (0.90-5.00); Lymphocytes % (A) 3.9 %; MCH 28.6 pg (27.0-32.0); MCHC 31.9 g/dL (32.0-37.0); MCV 89.7 fL (80.0-97.0); Mean Platelet Volume 9.3 fL (9.5-12.2); Monocytes # (A) 0.68 10*3/uL (0.20-1.00); Monocytes % (A) 5.2 %; Neutrophils # (A) 11.77 10*3/uL (1.80-7.70); Neutrophils % (A) 90.2 %; Platelet Count 189 10*3/uL (140-440); RBC 4.47 10*6/uL (4.40-5.60); RDW 14.2 % (11.5-14.5); WBC 13.04 10*3/uL (4.50-10.00)
[2024-11-08 13:47] LABS: ALT 35 U/L (4-49); AST 41 U/L (17-59); African American GFR (CKD) >90 (>60 ml/min/1.73 sqM); Albumin 3.8 g/dL (3.5-5.0); Alkaline Phosphatase 87 U/L (38-126); Anion Gap 5 mmol/L; Blood Urea Nitrogen 36 mg/dL (9-20); Calcium 8.8 mg/dL (8.4-10.2); Carbon Dioxide 28 mmol/L (22-30); Chloride 103 mmol/L (98-107); Glucose 127 mg/dL (74-99); Non-African American GFR(CKD) 81 (>60 ml/min/1.73 sqM); Potassium 4.3 mmol/L (3.5-5.1); Sodium 136 mmol/L (137-145); Total Bilirubin 0.9 mg/dL (0.2-1.3); Total Protein 6.5 g/dL (6.3-8.2)
[2024-11-08] MEDS ORDERED: ONDANSETRON 4 MG/2 ML VIAL IVP PRN (14:08)
[2024-11-08] MEDS ORDERED: ACETAMINOPHEN TAB 325 MG TAB PO PRN (14:08)
[2024-11-08] MEDS ORDERED: NALOXONE 0.4 MG/ML 1 ML VIAL IV PRN (14:08)
[2024-11-08] MEDS ORDERED: GABAPENTIN 400 MG CAP PO PRN (14:10)
[2024-11-08] MEDS ORDERED: ALBUTEROL NEBULIZED 2.5 MG/3 ML INHALATION PRN (14:10)
[2024-11-08] MEDS: SODIUM CHLORIDE 0.9% 1,000 ML IV SCH (14:57)
[2024-11-08] MEDS: SODIUM CHLORIDE 0.9% 1,000 ML IV ONE (14:58)
[2024-11-08] MEDS: LACTATED RINGERS 1,000 ML IV SCH ×3 (15:48→19:26)
[2024-11-08] MEDS: HYDROcodone/APAP 10-325MG 1 EACH TAB PO SCH (17:42)
[2024-11-08] MEDS: METOPROLOL TARTRATE 25 MG TAB PO SCH (21:39)
[2024-11-08] MEDS: rOPINIRole HCL 4 MG TABLET PO SCH (21:39)
[2024-11-08] MEDS: PRAMIPEXOLE 0.5 MG TAB PO SCH (21:40)
--- NOTE | 2024-11-08 21:52 | P.HPIM ---
History of Present Illness H&P Date: 11/08/24 Chief Complaint: Fever Pleasant 79-year-old male t, follows with Dr. Stewart Ramos. Forestry Contractor Dr. Oliveira and lime hide inspector Dr. Monson. Medical conditions include GERD, hypertension, hyperlipidemia, osteoarthritis, esophageal stricture constriction in the past, aortic valve stenosis, restless leg syndrome. Chronic back pain from a fall in his younger days. Ex-smoker. This morning patient developed a fever. And a cough with a sputum. Tired. Appears short of breath. Presented to the ER. Patient's blood pressure running low in the ER. Required fluid boluses. Review of systems: GEN.: Fever tired EYES: None HEENT: None NECK: None RESPIRATORY: As above CARDIOVASCULAR: None GASTROINTESTINAL: None GENITOURINARY: None MUSCULOSKELETAL: Chronic low back pain LYMPHATICS: None HEMATOLOGICAL: None PSYCHIATRY: None NEUROLOGICAL: None Social history: Smoked less than a pack half a pack a day for 20 years stopped about 40 years ago. 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 . Physical examination: VITAL SIGNS: 101.7, 63, 24, 117 x 62, 90% room air GENERAL: BMI 8.3, sitting at the edge of the bed, a bit short of breath EYES: Pupils equal. Conjunctiva hugh l. HEENT: External appearance of nose and ears normal, oral cavity grossly normal. NECK: JVD not raised; masses not palpable. HEART: First and second heart sounds are normal; no edema. LUNGS: Respiratory rate increased, diminished breath sounds., ABDOMEN: Soft, nontender, liver spleen not palpable, no masses palpable. PSYCH: Alert and oriented x3; mood and affect hugh l. MUSCULOSKELETAL:No Clubbing/cyanosis;muscles-grossly intact. OA NEUROLOGICAL: Cranial nerves grossly intact; no facial asymmetry, power and sensation grossly intact. LYMPHATICS: No lymph nodes palpable in the axilla and neck INVESTIGATIONS, reviewed in the clinical context: November 08: White count 13, hemoglobin 12.8 platelets 189 sodium 136 potassium 4.3 creatinine 0.88 Influenza type A, type B, RSV, SARS-CoV-2: Not detected Chest x-ray film personally reviewed by [id number] infiltrates . Assessment plan: -Complicated multilobar right-sided pneumonia suspect gram-negative organism, causing hypoxia Had a fever of 101 at home. Initial white count of 16.4 IV ceftriaxone - Acute hypoxic respiratory failure from pneumonia Oxygen supplement -Restless leg syndrome Requip 4 mg twice daily -Chronic low back pain from prior injury Neurontin 400 mg 3 times daily as needed. Mobic. [place] 10. -COPD in a previous smoker DuoNeb 3 times daily -GERD Lansoprazole 30 mg daily -Essential hypertension, in the ER was running low blood pressure. Had received fluid boluses. Now blood pressures coming up. Zestril hold Continue. Lopressor -Hyperlipidemia Zetia 10 mg a day -Full code Past Medical History Past Medical History: Heart Failure, GERD/Reflux, Hyperlipidemia, Hypertension, Musculoskeletal Disorder, Osteoarthritis (OA) Additional Past Medical History / Comment(s): esophageal constriction in the past, aortic valve stenosis, RLS, past hx. of compression fx. in back after a fall, chronic back pain, dry cough - has seen Dr. 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 ago, smoked for 20 yrs. <1/2ppd Past Drug Use History: None Reported - Past Family History Mother Family Medical History: No Reported History, Hypertension Father Family Medical History: No Reported History, Hypertension Medications and Allergies Home Medications Medication Instructions Recorded Confirmed Type Ezetimibe [Zetia] 10 mg PO DAILY 11/02/21 11/08/24 History Gabapentin [Neurontin] 400 mg PO QID 11/02/21 11/08/24 History HYDROcodone/APAP 10-325MG [[place] 1 tab PO Q6H PRN 11/02/21 11/08/24 History 10-325] Lansoprazole 30 mg PO DAILY 11/02/21 11/08/24 History Meloxicam [Mobic] 15 mg PO DAILY 11/02/21 11/08/24 History Metoprolol Tartrate [Lopressor] 25 mg PO BID 11/02/21 11/08/24 History lisinopriL [Zestril] 20 mg PO DAILY 11/02/21 11/08/24 History modafiniL [Provigil] 200 mg PO DAILY 11/02/21 11/08/24 History rOPINIRole HCL [Requip] 4 mg PO BID 11/02/21 11/08/24 History Rosuvastatin [Crestor] 10 mg PO DAILY 10/17/23 11/08/24 History Albuterol Inhaler [Ventolin Hfa 2 puff INHALATION RT-Q4H PRN 07/15/24 11/08/24 History Inhaler] Sildenafil Citrate 100 mg PO DAILY PRN 11/08/24 11/08/24 History Allergies Allergy/AdvReac Type Severity Reaction Status Date / Time No Known Allergies Allergy Verified 11/08/24 17:15 Physical Exam Vitals: Vital Signs Temp Pulse Pulse Resp BP BP Pulse Ox 11/08/24 20:00 98.0 F 71 18 130/67 94 L 11/08/24 19:53 98.4 F 65 18 120/61 100 11/08/24 19:22 108/40 11/08/24 19:02 55 L 18 81/38 96 11/08/24 18:45 57 L 18 97 11/08/24 17:04 60 18 115/51 92 L 11/08/24 15:44 60 18 108/59 90 L 11/08/24 14:49 98.8 F 67 18 90/51 97 11/08/24 11:50 22 11/08/24 11:23 101.7 F H 63 24 117/62 92 L Intake and Output 11/08/24 11/08/24 11/08/24 06:59 14:59 22:59 Other: Weight 74.843 kg 74.843 kg Results CBC & Chem 7: 11/08/24 13:19 11/08/24 13:19 Labs: Abnormal Lab Results - Last 24 Hours (Table) 11/08/24 11/08/24 Range/Units 13:19 13:19 WBC 13.04 H (4.50-10.00) 10*3/uL Hgb 12.8 L (13.0-17.0) g/dL MCHC 31.9 L (32.0-37.0) g/dL MPV 9.3 L (9.5-12.2) fL Immature Gran # 0.05 H (0.00-0.04) 10*3/uL Neutrophils # 11.77 H (1.80-7.70) 10*3/uL Lymphocytes # 0.51 L (0.90-5.00) 10*3/uL Eosinophils # 0.01 L (0.04-0.35) 10*3/uL Sodium 136 L (137-145) mmol/L BUN 36 H (9-20) mg/dL Glucose 127 H (74-99) mg/dL Thrombosis Risk Factor Assmnt - Choose All That Apply Any of the Below Risk Factors Present?: Yes Each Factor Represents 1 point: Serious lung disease incl. pneumonia (< 1month) Other Risk Factors: Yes Each Risk Factor Represents 3 Points: Age 75 years or older Thrombosis Risk Factor Assessment Total Risk Factor Score: 4 Thrombosis Risk Factor Assessment Level: Moderate Risk
[2024-11-08] MEDS: ENOXAPARIN 40 MG/0.4 ML SYRINGE SQ SCH (22:13)
[2024-11-09] MEDS: PANTOPRAZOLE 40 MG TABLET PO SCH (05:40)
[2024-11-09] MEDS ORDERED: lisinopriL 20 MG TAB PO SCH (09:00)
[2024-11-09] MEDS: MELOXICAM 7.5 MG TAB PO SCH (09:53)
[2024-11-09] MEDS: ASPIRIN 81 MG PO SCH (09:53)
[2024-11-09] MEDS: ATORVASTATIN 20 MG TAB PO SCH (09:53)
[2024-11-09] MEDS: EZETIMIBE 10 MG TAB PO SCH (09:54)
[2024-11-09] MEDS: METOCLOPRAMIDE 5 MG TAB PO SCH (14:13)
--- NOTE | 2024-11-09 18:28 | P.PN ---
Progress Note - Text Progress Note Date: 11/09/24 Chief Complaint: Fever Pleasant 79-year-old male t, follows with Dr. Stewart Ramos. Language And Literature Division Chair Dr. Oliveira and machine umbrella tipper Dr. Monson. Medical conditions include GERD, hypertension, hyperlipidemia, osteoarthritis, esophageal stricture constriction in the past, aortic valve stenosis, restless leg syndrome. Chronic back pain from a fall in his younger days. Ex-smoker. This morning patient developed a fever. And a cough with a sputum. Tired. Appears short of breath. Presented to the ER. Patient's blood pressure running low in the ER. Required fluid boluses. November 09: Breathing a bit better. Decreased cough. Appetite better. No fever. IV ceftriaxone Active Medications Acetaminophen (Acetaminophen Tab 325 Mg Tab) 650 mg PO Q6HR PRN PRN Reason: Mild Pain or Fever > 100.5 Hydrocodone Bitart/Acetaminophen (Hydrocodone/Apap 10-325mg 1 Each Tab) 1 each PO QID [facility] Last Admin: 11/09/24 14:13 Dose: 1 each Albuterol Sulfate (Albuterol Nebulized 2.5 Mg/3 Ml) 2.5 mg INHALATION RT-Q6H PRN PRN Reason: Shortness Of Breath Or Wheezing Aspirin (Aspirin 81 Mg) 81 mg PO DAILY [facility] Last Admin: 11/09/24 09:53 Dose: 81 mg Atorvastatin Calcium (Atorvastatin 20 Mg Tab) 20 mg PO DAILY [facility] Last Admin: 11/09/24 09:53 Dose: 20 mg Ezetimibe (Ezetimibe 10 Mg Tab) 10 mg PO DAILY [facility] Last Admin: 11/09/24 09:54 Dose: 10 mg Enoxaparin Sodium (Enoxaparin 40 Mg/0.4 Ml Syringe) 40 mg SQ DAILY [facility] Last Admin: 11/09/24 09:53 Dose: 40 mg Gabapentin (Gabapentin 400 Mg Cap) 400 mg PO TID PRN PRN Reason: Pain Lactated Ringer's (Lactated Ringers) 1,000 mls @ 110 mls/hr IV .Q9H6M [facility] Last Admin: 11/09/24 15:58 Dose: Not Given Ceftriaxone Sodium 2 gm/ (Dextrose/Water) 50 mls @ 100 mls/hr IVPB Q24HR [facility]; Protocol Ibuprofen (Ibuprofen 400 Mg Tab) 400 mg PO Q6HR PRN PRN Reason: Mild Pain or Fever > 100.5 Meloxicam (Meloxicam 7.5 Mg Tab) 15 mg PO DAILY [facility] Last Admin: 11/09/24 09:53 Dose: 15 mg Metoclopramide HCl (Metoclopramide 5 Mg Tab) 5 mg PO DAILY [facility] Last Admin: 11/09/24 14:13 Dose: 5 mg Metoprolol Tartrate (Metoprolol Tartrate 25 Mg Tab) 25 mg PO BID [facility] Last Admin: 11/09/24 09:54 Dose: 25 mg Modafinil (Modafinil 200 Mg Tab) 200 mg PO DAILY [facility] Last Admin: 11/09/24 09:53 Dose: 200 mg Naloxone HCl (Naloxone 0.4 Mg/Ml 1 Ml Vial) 0.2 mg IV Q2M PRN PRN Reason: Opioid Reversal Ondansetron HCl (Ondansetron 4 Mg/2 Ml Vial) 4 mg IVP Q8HR PRN PRN Reason: Nausea And Vomiting Pantoprazole Sodium (Pantoprazole 40 Mg Tablet) 40 mg PO AC-BRKFST [facility] Last Admin: 11/09/24 05:40 Dose: 40 mg Pramipexole Dihydrochloride (Pramipexole 0.5 Mg Tab) 0.5 mg PO HS [facility] Last Admin: 11/08/24 21:40 Dose: 0.5 mg Ropinirole HCl (Ropinirole Hcl 4 Mg Tablet) 4 mg PO BID [facility] Last Admin: 11/09/24 09:53 Dose: 4 mg Social history: Smoked less than a pack half a pack a day for 20 years stopped about 40 years ago. 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 . Physical examination: VITAL SIGNS: 97.9, 62, 18, 115 x 77, 97% 2 L GENERAL: Sitting edge of the bed, breathing better EYES: Pupils equal. Conjunctiva hugh l. HEENT: External appearance of nose and ears normal, oral cavity grossly normal. NECK: JVD not raised; masses not palpable. HEART: First and second heart sounds are normal; no edema. LUNGS: Respiratory rate increased, diminished breath sounds., ABDOMEN: Soft, nontender, liver spleen not palpable, no masses palpable. PSYCH: Alert and oriented x3; mood and affect hugh l. MUSCULOSKELETAL:No Clubbing/cyanosis;muscles-grossly intact. OA NEUROLOGICAL: Cranial nerves grossly intact; no facial asymmetry, power and sensation grossly intact. LYMPHATICS: No lymph nodes palpable in the axilla and neck INVESTIGATIONS, reviewed in the clinical context: November 08: White count 13, hemoglobin 12.8 platelets 189 sodium 136 potassium 4.3 creatinine 0.88 Influenza type A, type B, RSV, SARS-CoV-2: Not detected Chest x-ray film personally reviewed by [id number] infiltrates . Assessment plan: -Complicated multilobar right-sided pneumonia suspect gram-negative organism, causing hypoxia: Improving Had a fever of 101 at home. Initial white count of 16.4 IV ceftriaxone - Acute hypoxic respiratory failure from pneumonia: Improving Oxygen supplement -Restless leg syndrome Requip 4 mg twice daily -Chronic low back pain from prior injury Neurontin 400 mg 3 times daily as needed. Mobic. [place] 10. -COPD in a previous smoker DuoNeb 3 times daily -GERD Lansoprazole 30 mg daily -Essential hypertension, in the ER was running low blood pressure. Had received fluid boluses. Now blood pressures coming up.: Blood pressure up today Zestril resumed today Continue. Lopressor -Hyperlipidemia Zetia 10 mg a day -Full code Discussed with patient . Continue ceftriaxone. Resume Zestril Past Medical History Past Medical History: Heart Failure, GERD/Reflux, Hyperlipidemia, Hypertension, Musculoskeletal Disorder, Osteoarthritis (OA) Additional Past Medical History / Comment(s): esophageal constriction in the past, aortic valve stenosis, RLS, past hx. of compression fx. in back after a fall, chronic back pain, dry cough - has seen Dr. 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 ago, smoked for 20 yrs. <1/2ppd Past Drug Use History: None Reported
[2024-11-09] MEDS: cefTRIAXone 2 GM in DEXTROSE 5% IN WATER 50 ML IVPB SCH (20:30)
[2024-11-09] MEDS: lisinopriL 20 MG TAB PO SCH (23:01)
[2024-11-10] MEDS: IBUPROFEN 400 MG TAB PO PRN (03:56)
[2024-11-10 05:36] LABS: Basophils # (A) 0.03 10*3/uL (0.00-0.10); Basophils % (A) 0.3 %; Eosinophils # (A) 0.17 10*3/uL (0.04-0.35); Eosinophils % (A) 1.8 %; HCT 32.9 % (39.6-50.0); HGB 10.6 g/dL (13.0-17.0); Lymphocytes # (A) 0.99 10*3/uL (0.90-5.00); Lymphocytes % (A) 10.3 %; MCH 28.9 pg (27.0-32.0); MCHC 32.2 g/dL (32.0-37.0); MCV 89.6 fL (80.0-97.0); Mean Platelet Volume 9.6 fL (9.5-12.2); Monocytes # (A) 0.78 10*3/uL (0.20-1.00); Monocytes % (A) 8.1 %; Neutrophils # (A) 7.62 10*3/uL (1.80-7.70); Platelet Count 165 10*3/uL (140-440); RBC 3.67 10*6/uL (4.40-5.60); RDW 14.2 % (11.5-14.5); WBC 9.64 10*3/uL (4.50-10.00)
[2024-11-10 09:02] VITALS: BP 186/93; PULSE 71; RESP 18; TEMP 98
--- NOTE | 2024-11-10 19:13 | P.DS ---
Providers Date of admission: 11/08/24 14:55 Expected date of discharge: 11/10/24 Attending physician: Charles Donnelly Primary care physician: Stewart Ramos [facility] Course: Chief Complaint: Fever Pleasant 79-year-old male t, follows with Dr. Stewart Ramos. Machine Pack Assembler Dr. Oliveira and child care giver Dr. Monson. Medical conditions include GERD, hypertension, hyperlipidemia, osteoarthritis, esophageal stricture constriction in the past, aortic valve stenosis, restless leg syndrome. Chronic back pain from a fall in his younger days. Ex-smoker. This morning patient developed a fever. And a cough with a sputum. Tired. Appears short of breath. Presented to the ER. Patient's blood pressure running low in the ER. Required fluid boluses. November 09: Breathing a bit better. Decreased cough. Appetite better. No fever. IV ceftriaxone November 10: Doing much better. Breathing well. Patient advised to use incentive spirometry. Will complete 3 more days of Ceftin. 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 Advised against the same. Discussion and discharge planning more than 35 minutes Social history: Smoked less than a pack half a pack a day for 20 years stopped about 40 years ago. 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 . Physical examination: VITAL SIGNS: 98, 71, 18, 96% room air GENERAL: See, comfortable EYES: Pupils equal. Conjunctiva hugh l. HEENT: External appearance of nose and ears normal, oral cavity grossly normal. NECK: JVD not raised; masses not palpable. HEART: First and second heart sounds are normal; no edema. LUNGS: Respiratory rate normal, diminished breath sounds., ABDOMEN: Soft, nontender, liver spleen not palpable, no masses palpable. PSYCH: Alert and oriented x3; mood and affect hugh l. MUSCULOSKELETAL:No Clubbing/cyanosis;muscles-grossly intact. OA INVESTIGATIONS, reviewed in the clinical context: November 10: White count 9.6 hemoglobin 10.6 platelets 165 November 08: White count 13, hemoglobin 12.8 platelets 189 sodium 136 potassium 4.3 creatinine 0.88 Influenza type A, type B, RSV, SARS-CoV-2: Not detected Chest x-ray film personally reviewed by [id number] infiltrates . Assessment plan: -Complicated multilobar right-sided pneumonia suspect gram-negative organism, causing hypoxia: Much better Had a fever of 101 at home. Initial white count of 16.4 IV ceftriaxone Discharged with 3 days of Ceftin - Acute hypoxic respiratory failure from pneumonia: I resolved Oxygen supplement -Restless leg syndrome Requip 4 mg twice daily -Chronic low back pain from prior injury Neurontin 400 mg 3 times daily as needed. Mobic. [place] 10. -COPD in a previous smoker DuoNeb 3 times daily -GERD Lansoprazole 30 mg daily -Essential hypertension, in the ER was running low blood pressure. Had received fluid boluses. Now blood pressures coming up.: Blood pressure up today Zestril r Continue. Lopressor -Hyperlipidemia Zetia 10 mg a day -Full code Disposition: Home Past Medical History Past Medical History: Heart Failure, GERD/Reflux, Hyperlipidemia, Hypertension, Musculoskeletal Disorder, Osteoarthritis (OA) Additional Past Medical History / Comment(s): esophageal constriction in the past, aortic valve stenosis, RLS, past hx. of compression fx. in back after a fall, chronic back pain, dry cough - has seen Dr. 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 ago, smoked for 20 yrs. <1/2ppd Past Drug Use History: None Reported Plan - Discharge Summary Discharge Rx Participant: No New Discharge Prescriptions: New Aspirin 81 mg PO DAILY tab cefuroxime axetiL [Ceftin] 500 mg PO BID #6 tab Continue rOPINIRole HCL [Requip] 4 mg PO BID modafiniL [Provigil] 200 mg PO DAILY lisinopriL [Zestril] 20 mg PO DAILY Metoprolol Tartrate [Lopressor] 25 mg PO BID Meloxicam [Mobic] 15 mg PO DAILY Lansoprazole 30 mg PO DAILY HYDROcodone/APAP 10-325MG [[place]-325] 1 tab PO Q6H PRN PRN Reason: Pain Gabapentin [Neurontin] 400 mg PO QID Rosuvastatin [Crestor] 10 mg PO DAILY Ezetimibe [Zetia] 10 mg PO DAILY Albuterol Inhaler [Ventolin Hfa Inhaler] 2 puff INHALATION RT-Q4H PRN PRN Reason: Shortness Of Breath Or Wheezing Sildenafil Citrate 100 mg PO DAILY PRN PRN Reason: E.D. Discharge Medication List Ezetimibe [Zetia] 10 mg PO DAILY 11/02/21 [History] Gabapentin [Neurontin] 400 mg PO QID 11/02/21 [History] HYDROcodone/APAP 10-325MG [[place]-325] 1 tab PO Q6H PRN 11/02/21 [History] Lansoprazole 30 mg PO DAILY 11/02/21 [History] Meloxicam [Mobic] 15 mg PO DAILY 11/02/21 [History] Metoprolol Tartrate [Lopressor] 25 mg PO BID 11/02/21 [History] lisinopriL [Zestril] 20 mg PO DAILY 11/02/21 [History] modafiniL [Provigil] 200 mg PO DAILY 11/02/21 [History] rOPINIRole HCL [Requip] 4 mg PO BID 11/02/21 [History] Rosuvastatin [Crestor] 10 mg PO DAILY 10/17/23 [History] Albuterol Inhaler [Ventolin Hfa Inhaler] 2 puff INHALATION RT-Q4H PRN 07/15/24 [History] Sildenafil Citrate 100 mg PO DAILY PRN 11/08/24 [History] Aspirin 81 mg PO DAILY tab 11/10/24 [Rx] cefuroxime axetiL [Ceftin] 500 mg PO BID #6 tab 11/10/24 [Rx] Follow up Appointment(s)/Referral(s): Stewart Ramos MD [Primary Care Provider] - 1-2 days (Office is closed at time of discharge. Please call for follow-up appointment.) Patient Instructions/Handouts: Community Acquired Pneumonia (DC) Discharge Disposition: HOME SELF-CARE
== END 2024-11-10 14:43 | disposition home or self-care (01) | DRG 177 ==
LOC: EC 11:19 → 4SSUR 14:55
PROVIDERS: ADMIT Hospitalist; ATTEND Hospitalist
DX: J15.69 Pneumonia due to other Gram-negative bacteria (principal); J96.01 Acute respiratory failure with hypoxia; I11.0 Hypertensive heart disease with heart failure; I50.9 Heart failure, unspecified; J44.0 Chronic obstructive pulmonary disease with (acute) lower respiratory infection; G25.81 Restless legs syndrome; Z95.2 Presence of prosthetic heart valve; I95.9 Hypotension, unspecified; E78.5 Hyperlipidemia, unspecified; K21.9 Gastro-esophageal reflux disease without esophagitis; M54.50 Low back pain, unspecified; G89.29 Other chronic pain; Z79.1 Long term (current) use of non-steroidal anti-inflammatories (NSAID); Z79.82 Long term (current) use of aspirin; Z79.899 Other long term (current) drug therapy; Z96.612 Presence of left artificial shoulder joint; Z87.891 Personal history of nicotine dependence
CPT/HCPCS: 36415; 51798; 71046; 80053; 83605; 84145; 85025; 87040; 87636; 96361; 96365; 99285

== ENCOUNTER 2024-11-26 15:35 | Inpatient (IN) | payer MEDICARE ==
--- NOTE | 2024-11-26 16:05 | ED ---
SOB HPI - General Source: patient, family, RN notes reviewed Mode of arrival: wheelchair Limitations: no limitations <Clarence Lucas - Last Filed: 11/26/24 16:04> - General Source: patient, family, RN notes reviewed, old records reviewed Mode of arrival: wheelchair Limitations: no limitations - History of Present Illness MD Complaint: shortness of breath, cough, chest pain -: days(s) Severity: moderate Severity scale (1-10): 4 Consistency: constant Improves With: nothing Worsens With: nothing Known History Of: COPD, asthma Context: recent URI, recent illness Associated Symptoms: pain with inspiration, cough Treatments Prior to Arrival: none <Bal Castillo - Last Filed: 11/26/24 20:19> - General Stated Complaint: Fever Time Seen by Provider: 11/26/24 15:48 - History of Present Illness Initial Comments: Quick note: This is an 79-year-old male with history of pneumonia presenting for fever noted earlier today. Patient was at his PCP appointment this morning when it was just noted he had a fever of 100.7 F. Endorses associated dyspnea, weakness/fatigue and dyspnea with exertion. Endorses pneumonia diagnosis 3 weeks ago. Endorses recent use of Tylenol prior to ER arrival. Denies chest pain, hemoptysis, dizziness, abdominal pain, N/V/D. (Clarence Lucas) This is a 79-year-old male with known history of pneumonia coming in for fever chest pain and shortness of breath. Patient having exertional dyspnea severe with increased activity level lately very concerned over patient's breathing (Bal Castillo) - Related Data Home Medications Medication Instructions Recorded Confirmed Ezetimibe [Zetia] 10 mg PO DAILY 11/02/21 11/26/24 Gabapentin [Neurontin] 400 mg PO QID 11/02/21 11/26/24 HYDROcodone/APAP 10-325MG [Sumerco 1 tab PO Q6H PRN 11/02/21 11/26/24 10-325] Lansoprazole 30 mg PO DAILY 11/02/21 11/26/24 Meloxicam [Mobic] 15 mg PO DAILY 11/02/21 11/26/24 Metoprolol Tartrate [Lopressor] 25 mg PO BID 11/02/21 11/26/24 lisinopriL [Zestril] 20 mg PO DAILY 11/02/21 11/26/24 modafiniL [Provigil] 200 mg PO DAILY 11/02/21 11/26/24 rOPINIRole HCL [Requip] 4 mg PO BID 11/02/21 11/26/24 Rosuvastatin [Crestor] 10 mg PO DAILY 10/17/23 11/26/24 Furosemide [Lasix] 40 mg PO DAILY PRN 11/26/24 11/26/24 Pramipexole [Mirapex] 0.5 mg PO HS 11/26/24 11/26/24 Previous Rx's Medication Instructions Recorded Aspirin 81 mg PO DAILY tab 11/10/24 Allergies Allergy/AdvReac Type Severity Reaction Status Date / Time No Known Allergies Allergy Verified 11/26/24 18:16 Review of Systems ROS Other: All systems not noted in ROS Statement are negative. <Clarence Lucas - Last Filed: 11/26/24 16:04> ROS Other: All systems not noted in ROS Statement are negative. <Bal Castillo - Last Filed: 11/26/24 20:19> ROS Statement: Those systems with pertinent positive or pertinent negative responses have been documented in the HPI. Past Medical History Past Medical History: Heart Failure, GERD/Reflux, Hyperlipidemia, Hypertension, Musculoskeletal Disorder, Osteoarthritis (OA) Additional Past Medical History / Comment(s): esophageal constriction in the past, aortic valve stenosis, RLS, past hx. of compression fx. in back after a fall, chronic back pain, dry cough - has seen Dr. 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 ago, smoked for 20 yrs. <1/2ppd Past Drug Use History: None Reported - Past Family History Mother Family Medical History: No Reported History, Hypertension Father Family Medical History: No Reported History, Hypertension <Clarence Lucas - Last Filed: 11/26/24 16:04> General Exam <Clarence Lucas - Last Filed: 11/26/24 16:04> General appearance: alert, in no apparent distress, anxious Head exam: Present: atraumatic, normocephalic, normal inspection Eye exam: Present: normal appearance, PERRL, EOMI. Absent: scleral icterus, conjunctival injection, periorbital swelling ENT exam: Present: normal exam, mucous membranes moist Neck exam: Present: normal inspection. Absent: tenderness, meningismus, lymphadenopathy Respiratory exam: Present: respiratory distress, wheezes, accessory muscle use, decreased breath sounds, prolonged expiratory. Absent: rales, rhonchi, stridor Cardiovascular Exam: Present: regular rate, normal rhythm, normal heart sounds. Absent: systolic murmur, diastolic murmur, rubs, gallop, clicks GI/Abdominal exam: Present: soft, normal bowel sounds. Absent: distended, tenderness, guarding, rebound, rigid Extremities exam: Present: normal inspection, full ROM, normal capillary refill. Absent: tenderness, pedal edema, joint swelling, calf tenderness Back exam: Present: normal inspection Neurological exam: Present: alert, oriented X3, CN II-XII intact Psychiatric exam: Present: normal affect, normal mood Skin exam: Present: warm, dry, intact, normal color. Absent: rash <Bal Castillo - Last Filed: 11/26/24 20:19> - General Exam Comments Initial Comments: Visual Physical Exam Vital signs reviewed General: Well-appearing, nontoxic, no acute distress. Head: Normocephalic, atraumatic Eyes: PERRLA, EOMI ENT: Airway patent Chest: Nonlabored breathing Skin: No visual rash, normal skin tone Neuro: Alert and oriented 3 Musculoskeletal: No gross abnormalities (Clarence Lucas) Course <Bal Castillo - Last Filed: 11/26/24 20:19> Vital Signs 11/26/24 11/26/24 11/26/24 16:27 16:36 18:24 Temperature 98.5 F Pulse Rate 67 67 55 L Respiratory 18 18 20 Rate Blood Pressure 96/58 123/71 O2 Sat by Pulse 86 L 94 L 92 L Oximetry 11/26/24 11/26/24 11/26/24 18:37 18:43 18:44 Temperature Pulse Rate 59 L 59 L Respiratory 24 Rate Blood Pressure O2 Sat by Pulse Oximetry - Reevaluation(s) Reevaluation #1: 11/26/24 20:17 Medical records reviewed (Bal Castillo) Reevaluation #2: 11/26/24 20:17 Patient symptoms are improved with supportive treatment but does not feel comfortable with discharge (Bal Castillo) Reevaluation #3: 11/26/24 20:17 Patient informed of results and questions answered (Bal Castillo) Reevaluation #4: Was pt. sent in by a medical professional or institution (, [facility], GLOBAL COMPENSATION ANALYST, urgent care, hospital, or prison...) When possible be specific @ -no Did you speak to anyone other than the patient for history (EMS, parent, family, police, friend...)? What history was obtained from this source @ -no Did you review nursing and triage notes (agree or disagree)? Why? @ -agree Are old charts reviewed (outside hosp., previous admission, EMS record, old EKG, old radiological studies, urgent care reports/EKG's, prison records)? Report findings @ -yes Differential Diagnosis (chest pain, altered mental status, abdominal pain women, abdominal pain men, vaginal bleeding, weakness, fever, dyspnea, syncope, headache, dizziness, GI bleed, back pain, seizure, CVA, palpatations, mental health, musculoskeletal)? @ -prior EKG interpreted by me (3pts min.). @ -yes X-rays interpreted by me (1pt min.). @ -yes negative for acute disease CT interpreted by me (1pt min.). @ -no U/S interpreted by me (1pt. min.). @ -no What testing was considered but not performed or refused? (CT, X-rays, U/S, labs)? Why? @ -none What meds were considered but not given or refused? Why? @ -none Did you discuss the management of the patient with other professionals (professionals i.e. [facility] Prater, GLOBAL COMPENSATION ANALYST, lab, RT, psych nurse, social sciences department chair, operations support representative, teacher, special officer, case finishing machine adjuster)? Give summary @ -no Was smoking cessation discussed for >3mins.? @ -no Was critical care preformed (if so, how long)? @ -no Were there social determinants of health that impacted care today? How? (Homelessness, low income, unemployed, alcoholism, drug addiction, transportation, low edu. Level, literacy, decrease access to med. care, skilled nursing, rehab)? @ -none Was there de-escalation of care discussed even if they declined (Discuss DNR or withdrawal of care, Hospice)? DNR status @ -no What co-morbidities impacted this encounter? (DM, HTN, Smoking, COPD, CAD, Cancer, CVA, ARF, Chemo, Hep., AIDS, mental health diagnosis, sleep apnea, morbid obesity)? @ -none Was patient admitted / discharged? Hospital course, mention meds given and route, prescriptions, significant lab abnormalities, going to OR and other pertinent info. @ - Undiagnosed new problem with uncertain prognosis? @ -no Drug Therapy requiring intensive monitoring for toxicity (Heparin, Nitro, Insulin, Cardizem)? @ -no Were any procedures done? @ -no Diagnosis/symptom? @ - Acute, or Chronic, or Acute on Chronic? @ -Acute Uncomplicated (without systemic symptoms) or Complicated (systemic symptoms)? @ -Complicated Side effects of treatment? @ -no Exacerbation, Progression, or Severe Exacerbation? @ -exacerbation Poses a threat to life or bodily function? How? (Chest pain, [place], [place], pneumonia, PE, COPD, DKA, ARF, appy, cholecystitis, CVA, Diverticulitis, Homicidal, Suicidal, threat to staff... and all critical care pts) @ -yes (Bal Castillo) Reevaluation #5: Differential Fever: Pneumonia, viral URI, endocarditis, myocarditis, pericarditis, otitis, sinusitis, peritonsillar Abscess, retropharyngeal Abscess, epiglottitis, peritonitis, appendicitis, Wendy cystitis, diverticulitis, hepatitis, colitis, UTI, PID, TOA, pyelonephritis, prostatitis, epididymitis, meningitis, encephalitis, pulmonary embolism, CVA, thyroid storm, pancreatitis, adrenal crisis, cavernous sinus thrombosis, this is not meant to be an all-inclusive list. Differential Dyspnea: Coronary syndrome, arrhythmia, tamponade, asthma, COPD, pulmonary embolism, pneumonia, pneumothorax, pulmonary effusion, anaphylaxis, diabetic ketoacidosis, flailed chest, pulmonary contusion, diaphragmatic rupture, anemia, neuromuscul ar, this is not meant to be an all-inclusive list. (Bal Castillo) - Consultations Consultation #1: Spoke with [facility] who agrees to admit this patient (Bal Castillo) Medical Decision Making <Clarence Lucas - Last Filed: 11/26/24 16:04> - Lab Data Result diagrams: 11/26/24 17:47 11/26/24 17:47 - EKG Data -: EKG Interpreted by Me (EKG sinus bradycardia 58 MS 185 QRS 109 QTc 400) - Radiology Data Radiology results: report reviewed (Chest x-ray is positive for pneumonia), image reviewed <Bal Castillo - Last Filed: 11/26/24 20:19> - Medical Decision Making I completed the quick note portion of this chart signed KATIE Santizo (Clarence Lucas) 79 male to the ER for evaluation patient has underlying history of COPD complaining of severe shortness of breath and fever. Patient has COPD with pneumonia hypoxia (Bal Castillo) - Lab Data Lab Results 11/26/24 11/26/24 11/26/24 Range/Units 16:38 17:47 17:47 WBC 9.24 (4.50-10.00) 10*3/uL RBC 4.18 L (4.40-5.60) 10*6/uL Hgb 12.1 L (13.0-17.0) g/dL Hct 37.5 L (39.6-50.0) % MCV 89.7 (80.0-97.0) fL MCH 28.9 (27.0-32.0) pg MCHC 32.3 (32.0-37.0) g/dL Plt Count 223 (140-440) 10*3/uL MPV 9.7 (9.5-12.2) fL Immature Gran % (Auto) 0.2 % Neutrophils % 85.6 % Lymphocytes % 5.1 % Monocytes % 8.8 % Eosinophils % 0.0 % Basophils % 0.3 % Immature Gran # 0.02 (0.00-0.04) 10*3/uL Neutrophils # 7.91 H (1.80-7.70) 10*3/uL Lymphocytes # 0.47 L (0.90-5.00) 10*3/uL Monocytes # 0.81 (0.20-1.00) 10*3/uL Eosinophils # 0.00 L (0.04-0.35) 10*3/uL Basophils # 0.03 (0.00-0.10) 10*3/uL Manual Slide Review Performed PT 12.8 H (10.0-12.5) sec INR 1.2 H (<1.2) APTT 26.4 (22.0-30.0) sec Sodium (137-145) mmol/L Potassium (3.5-5.1) mmol/L Chloride (98-107) mmol/L Carbon Dioxide (22-30) mmol/L Anion Gap mmol/L BUN (9-20) mg/dL Creatinine (0.66-1.25) mg/dL Est GFR (CKD-EPI)AfAm (>60 ml/min/1.73 sqM) Est GFR (CKD-EPI)NonAf (>60 ml/min/1.73 sqM) Glucose (74-99) mg/dL Plasma Lactic Acid Krishna (0.7-2.0) mmol/L Calcium (8.4-10.2) mg/dL Magnesium (1.6-2.3) mg/dL Total Bilirubin (0.2-1.3) mg/dL AST (17-59) U/L ALT (4-49) U/L Alkaline Phosphatase (38-126) U/L Troponin I (0.000-0.034) ng/mL NT-Pro-B Natriuret Pep pg/mL Total Protein (6.3-8.2) g/dL Albumin (3.5-5.0) g/dL Influenza Type A (PCR) Not Detected (Not Detectd) Influenza Type B (PCR) Not Detected (Not Detectd) RSV (PCR) Not Detected (Not Detectd) SARS-CoV-2 (PCR) Not Detected (Not Detectd) 11/26/24 11/26/24 11/26/24 Range/Units 17:47 17:47 17:47 WBC (4.50-10.00) 10*3/uL RBC (4.40-5.60) 10*6/uL Hgb (13.0-17.0) g/dL Hct (39.6-50.0) % MCV (80.0-97.0) fL MCH (27.0-32.0) pg MCHC (32.0-37.0) g/dL Plt Count (140-440) 10*3/uL MPV (9.5-12.2) fL Immature Gran % (Auto) % Neutrophils % % Lymphocytes % % Monocytes % % Eosinophils % % Basophils % % Immature Gran # (0.00-0.04) 10*3/uL Neutrophils # (1.80-7.70) 10*3/uL Lymphocytes # (0.90-5.00) 10*3/uL Monocytes # (0.20-1.00) 10*3/uL Eosinophils # (0.04-0.35) 10*3/uL Basophils # (0.00-0.10) 10*3/uL Manual Slide Review PT (10.0-12.5) sec INR (<1.2) APTT (22.0-30.0) sec Sodium 139 (137-145) mmol/L Potassium 5.2 H (3.5-5.1) mmol/L Chloride 107 (98-107) mmol/L Carbon Dioxide 27 (22-30) mmol/L Anion Gap 5 mmol/L BUN 33 H (9-20) mg/dL Creatinine 0.88 (0.66-1.25) mg/dL Est GFR (CKD-EPI)AfAm >90 (>60 ml/min/1.73 sqM) Est GFR (CKD-EPI)NonAf 81 (>60 ml/min/1.73 sqM) Glucose 114 H (74-99) mg/dL Plasma Lactic Acid Krishna 1.1 (0.7-2.0) mmol/L Calcium 8.9 (8.4-10.2) mg/dL Magnesium 2.0 (1.6-2.3) mg/dL Total Bilirubin 1.0 (0.2-1.3) mg/dL AST 24 (17-59) U/L ALT 23 (4-49) U/L Alkaline Phosphatase 71 (38-126) U/L Troponin I <0.012 (0.000-0.034) ng/mL NT-Pro-B Natriuret Pep 2970 pg/mL Total Protein 6.4 (6.3-8.2) g/dL Albumin 3.6 (3.5-5.0) g/dL Influenza Type A (PCR) (Not Detectd) Influenza Type B (PCR) (Not Detectd) RSV (PCR) (Not Detectd) SARS-CoV-2 (PCR) (Not Detectd) Critical Care Time Critical Care Time: Yes Total Critical Care Time: 31 <Bal Castillo - Last Filed: 11/26/24 20:19> Disposition <Clarence Lucas - Last Filed: 11/26/24 16:04> Is patient prescribed a controlled substance at d/c from ED?: No Time of Disposition: 20:00 <Bal Castillo - Last Filed: 11/26/24 20:19> Clinical Impression: COPD (chronic obstructive pulmonary disease), Weakness, Community acquired pneumonia, Acute respiratory failure, Hypoxia Disposition: ADMITTED IP TO THIS HOSP Condition: Serious Referrals: Stewart Ramos MD [Primary Care Provider] - 1-2 days
--- NOTE | 2024-11-26 17:08 | XR ---
EXAMINATION TYPE: XR chest 2V DATE OF EXAM: 11/26/2024 5:00 PM COMPARISON: Chest radiographs from 11/08/2024, CT chest 07/15/2024 TECHNIQUE: XR chest 2V Frontal and lateral views of the chest. CLINICAL INDICATION:Male, 79 years old with history of Fever, dyspnea, fatigue; FINDINGS: Lungs/Pleura: No pleural effusion or pneumothorax. Redemonstration of right mid and lower lung perihi lar patchy airspace opacities. Additional patchy areas within the bilateral upper lungs to a lesser d egree. Pulmonary vascularity: Unremarkable. Heart/mediastinum: Cardiomediastinal silhouette is stable. Post aortic valvular repair changes. Athe rosclerotic calcifications are seen in the aorta. Musculoskeletal: No acute osseous pathology. Post surgical changes are reversed total left shoulder a rthroplasty. End-stage appearance of osteoarthritic change of the right shoulder with sclerosis and f lattening of the humeral head. IMPRESSION: 1. Patchy airspace opacities most prominent within the right mid and lower lung. Most consistent wit h pneumonia. 2. 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 [facility], , 11/26/2024 5:05 PM
[2024-11-26 17:27] LABS: Influenza A Not Detected (Not Detectd); Influenza B Not Detected (Not Detectd); RSV Not Detected (Not Detectd)
[2024-11-26] MEDS: SODIUM CHLORIDE 0.9% 1,000 ML IV ONE (18:32)
[2024-11-26] MEDS: AZITHROMYCIN 500 MG in SODIUM CHLORIDE 0.9% 250 ML IVPB STA (18:35)
[2024-11-26] MEDS: IPRATROPIUM-ALBUTEROL 3 ML NEB INHALATION STA ×2 (18:37→20:25)
[2024-11-26 19:03] LABS: ALT 23 U/L (4-49); AST 24 U/L (17-59); African American GFR (CKD) >90 (>60 ml/min/1.73 sqM); Albumin 3.6 g/dL (3.5-5.0); Alkaline Phosphatase 71 U/L (38-126); Anion Gap 5 mmol/L; Blood Urea Nitrogen 33 mg/dL (9-20); Calcium 8.9 mg/dL (8.4-10.2); Carbon Dioxide 27 mmol/L (22-30); Chloride 107 mmol/L (98-107); Glucose 114 mg/dL (74-99); Non-African American GFR(CKD) 81 (>60 ml/min/1.73 sqM); Potassium 5.2 mmol/L (3.5-5.1); Sodium 139 mmol/L (137-145); Total Protein 6.4 g/dL (6.3-8.2)
[2024-11-26 19:09] LABS: INR 1.2 (<1.2); Partial Thromboplastin Time 26.4 sec (22.0-30.0); Prothrombin Time 12.8 sec (10.0-12.5)
[2024-11-26 19:10] LABS: NT-Pro-B-Type Natriuretic Pept 2970 pg/mL
[2024-11-26 19:16] LABS: Basophils # (A) 0.03 10*3/uL (0.00-0.10); Basophils % (A) 0.3 %; HCT 37.5 % (39.6-50.0); HGB 12.1 g/dL (13.0-17.0); Lymphocytes # (A) 0.47 10*3/uL (0.90-5.00); Lymphocytes % (A) 5.1 %; MCH 28.9 pg (27.0-32.0); MCHC 32.3 g/dL (32.0-37.0); MCV 89.7 fL (80.0-97.0); Mean Platelet Volume 9.7 fL (9.5-12.2); Monocytes # (A) 0.81 10*3/uL (0.20-1.00); Monocytes % (A) 8.8 %; Neutrophils # (A) 7.91 10*3/uL (1.80-7.70); Neutrophils % (A) 85.6 %; RBC 4.18 10*6/uL (4.40-5.60); RDW 14.6 % (11.5-14.5); WBC 9.24 10*3/uL (4.50-10.00)
[2024-11-26 19:43] LABS: Platelet Count 223 10*3/uL (140-440)
[2024-11-26] MEDS: SODIUM CHLORIDE 0.9% 1,000 ML IV SCH (20:05)
[2024-11-26] MEDS ORDERED: PNEUMONIA PROTOCOL UTILIZED 1 EACH MISC PO PRN (20:14)
[2024-11-26] MEDS: GABAPENTIN 400 MG CAP PO SCH (21:36)
[2024-11-26] MEDS: METOPROLOL TARTRATE 25 MG TAB PO SCH (21:36)
--- NOTE | 2024-11-27 02:31 | P.CNPUL ---
History of Present Illness Consult date: 11/27/24 Requesting physician: Bal Castillo Reason for consult: hypoxemia Chief complaint: Shortness of breath, cough, fevers History of present illness: Patient is an 79-year-old male with past medical history significant for dysphagia, esophageal strictures with previous balloon dilation, hiatal hernia, GERD, recurrent pneumonias, hypertension, hyperlipidemia, aortic valve stenosis status post TAVR, and recent left shoulder replacement. Of note, patient has been treated on several occasions for recurrent pneumonias since June,. Chest CT from 07/15/2024 demonstrated patchy infiltrates throughout the right lung. Pleural-based calcifications along the right diaphragm. Most recently, hospitalized 11/08 through 11/10 for right-sided pneumonia and discharged with 3 days worth of Ceftin. Reportedly, did complete these antibiotics, and was feeling back to normal over the last couple weeks. Presented to the emergency department yesterday evening with a chief complaint of shortness of breath, mostly nonproductive cough, and intermittent fevers. Reportedly, had a doctor's appointment with his orthopedic surgeon, noted to have a temperature of 100.7 F. Workup in the emergency department including a chest x-ray showing increasing patchy airspace opacities most prominent within the right mid and lower lung cook, and to a lesser degree on the left. He was afebrile on arrival to the ED. Did take Tylenol prior to arrival. No significant leukocytosis. CBC with a WBC count of 9.2, hemoglobin 12.1, platelets 223. CMP: Sodium 139, potassium 5.2, chloride 107, serum bicarb 27, BUN 33, creatinine 0.88, glucose 114. Lactic 1.1. Troponin less than 0.012. NT proBNP 2970. Viral 4 Plex negative for influenza A/B, RSV, COVID. Patient currently being evaluated in the emergency department. Currently, resting comfortably on 2 L/min nasal cannula. He is wearing a left arm sling. Endorses above- mentioned symptoms, which reportedly started over the last 24 hours. Cough has been mostly nonproductive. Does report fevers. Denies any recent travel or sick contacts. Denies chest pain, hemoptysis. Denies nausea, vomiting, diarrhea. Reports ongoing issues with dysphagia. His last EGD was in May, with Dr. Moe and underwent balloon dilation of the distal esophageal Schatzki's ring, small hiatal hernia was noted. 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 Normal sinus infusing at 130 mL/h. Nontoxic appearance. Vital signs are stable. Review of Systems Constitutional: Reports chills, Reports fatigue, Reports fever, Denies night sweats, Denies poor appetite, Denies weight gain, Denies weight loss Ears, nose, mouth and throat: Denies headache, Denies nasal congestion, Denies nasal discharge, Denies post-nasal drip, Denies sinus pain, Denies sinus pressure, Denies sore throat Cardiovascular: Denies chest pain, Denies leg edema, Denies lightheadedness, Denies orthopnea, Denies palpitations, Denies paroxysmal nocturnal dyspnea, Denies syncope Respiratory: Reports congestion, Reports cough with sputum, Reports dyspnea, Denies excessive sputum, Denies home oxygen, Denies pain on inspiration, Denies wheezing Gastrointestinal: Denies abdominal pain, Denies change in bowel habits, Denies diarrhea, Denies nausea, Denies vomiting Genitourinary: Denies dysuria Musculoskeletal: Denies shooting arm pain Musculoskeletal: left: shoulder pain, shoulder stiffness, absent: shoulder swe lling Integumentary: Denies rash Neurological: Denies head injury, Denies headaches, Denies seizures, Denies syncope Psychiatric: Denies anxiety, Denies depression Hematologic/Lymphatic: Denies lymphadenopathy Past Medical History Past Medical History: Heart Failure, GERD/Reflux, Hyperlipidemia, Hypertension, Musculoskeletal Disorder, Osteoarthritis (OA) Additional Past Medical History / Comment(s): esophageal constriction in the p ast, aortic valve stenosis, RLS, past hx. of compression fx. in back after a fall, chronic back pain, dry cough - has seen Dr. 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, Left Shoulder reverse replacement Past Anesthesia/Blood Transfusion Reactions: No Reported Reaction Past Psychological History: No Psychological Hx Reported Smoking Status: Former smoker Past Alcohol Use History: Occasional Past Drug Use History: None Reported - Past Family History Mother Family Medical History: No Reported History, Hypertension Father Family Medical History: No Reported History, Hypertension Medications and Allergies Home Medications Medication Instructions Recorded Confirmed Type Ezetimibe [Zetia] 10 mg PO DAILY 11/02/21 11/26/24 History Gabapentin [Neurontin] 400 mg PO QID 11/02/21 11/26/24 History HYDROcodone/APAP 10-325MG [[place] 1 tab PO Q6H PRN 11/02/21 11/26/24 History 10-325] Lansoprazole 30 mg PO DAILY 11/02/21 11/26/24 History Meloxicam [Mobic] 15 mg PO DAILY 11/02/21 11/26/24 History Metoprolol Tartrate [Lopressor] 25 mg PO BID 11/02/21 11/26/24 History lisinopriL [Zestril] 20 mg PO DAILY 11/02/21 11/26/24 History modafiniL [Provigil] 200 mg PO DAILY 11/02/21 11/26/24 History rOPINIRole HCL [Requip] 4 mg PO BID 11/02/21 11/26/24 History Rosuvastatin [Crestor] 10 mg PO DAILY 10/17/23 11/26/24 History Aspirin 81 mg PO DAILY tab 11/10/24 11/26/24 Rx Furosemide [Lasix] 40 mg PO DAILY PRN 11/26/24 11/26/24 History Pramipexole [Mirapex] 0.5 mg PO HS 11/26/24 11/26/24 History Allergies Allergy/AdvReac Type Severity Reaction Status Date / Time No Known Allergies Allergy Verified 11/26/24 18:16 Physical Exam Vitals: Vital Signs Temp Pulse Resp BP Pulse Ox 11/26/24 20:45 72 11/26/24 20:30 60 11/26/24 18:44 59 L 11/26/24 18:43 24 11/26/24 18:37 59 L 11/26/24 18:24 55 L 20 123/71 92 L 11/26/24 16:36 67 18 94 L 11/26/24 16:27 98.5 F 67 18 96/58 86 L Intake and Output 11/26/24 11/26/24 11/27/24 14:59 22:59 06:59 Other: Weight 77.111 kg GENERAL EXAM: Alert, 79-year-old male, sitting up in bed, with left arm sling, comfortable in no apparent distress. HEAD: Normocephalic and atraumatic EYES: Normal reaction of pupils, equal size. NOSE: Clear with pink turbinates. THROAT: No erythema or exudates. NECK: No masses, no JVD. CHEST: No chest wall deformity. LUNGS: Equal air entry with right posterior lung wheezing/rhonchi. Left lung mostly clear with auscultation. On 2 L/min nasal cannula. No conversational dyspnea or accessory muscle use.. While at rest CVS: S1 and S2 normal with no audible murmur, regular rhythm. No extra heart sounds ABDOMEN: No hepatosplenomegaly, active bowel sounds, no guarding or rigidity. SPINE: No scoliosis or deformity SKIN: No rashes CENTRAL NERVOUS SYSTEM: No focal deficits, tone is normal in all 4 extremities. EXTREMITIES: There is no peripheral edema, clubbing, or cyanosis. Peripheral pulses are intact. Results - Laboratory Findings CBC and BMP: 11/26/24 17:47 11/26/24 17:47 PT/INR, D-dimer PT 12.8 sec (10.0-12.5) H 11/26/24 17:47 INR 1.2 (<1.2) H 11/26/24 17:47 Abnormal lab findings: Abnormal Labs 11/26/24 11/26/24 11/26/24 17:47 17:47 17:47 RBC 4.18 L Hgb 12.1 L Hct 37.5 L Neutrophils # 7.91 H Lymphocytes # 0.47 L Eosinophils # 0.00 L PT 12.8 H INR 1.2 H Potassium 5.2 H BUN 33 H Glucose 114 H - Diagnostic Findings Chest x-ray: image reviewed Assessment and Plan Assessment: Recurrent right-sided pneumonia, chest x-ray demonstrating increasing patchy airspace opacities most prominent within the right mid and lower lung cook, and to a lesser degree on the left. Pleural plaquing noted near the diaphragm. Acute hypoxemic respiratory failure, currently on 2 L/min nasal cannula, secondary to above Chronic obstructive pulmonary disease History of asbestos exposure and pleural plaquing History of dysphagia with esophageal strictures and Schatzki ring, most recent undergoing balloon dilation May, History of hiatal hernia History of gastroesophageal reflux disease Hypertension History of hyperlipidemia History of aortic valve stenosis status post transcatheter aortic valve replacement History of left shoulder reverse replacement Former tobacco smoker Plan: Currently requiring 2 L/min nasal cannula, wean as tolerated Continue empiric antibiotics Check procalcitonin level Viral 4 Plex negative for influenza A/B, RSV, COVID Check urine Legionella antigen Patient has been treated several times for recurrent pneumonias over the last 5 months Case will be reviewed with Dr. Hernandez. Patient may be candidate for bronchoscopy with BAL if no improvement. We will continue to follow, additional recommendations forthcoming I have personally seen and examined the patient, performed the documentation and the assessment and plan as written. Number of minutes spent on the visit:20 Time with Patient: Greater than 30
[2024-11-27] MEDS: PANTOPRAZOLE 40 MG TABLET PO SCH (07:43)
[2024-11-27] MEDS: ALBUTEROL NEBULIZED 2.5 MG/3 ML INHALATION SCH (07:48)
[2024-11-27] MEDS: PIPERACILLIN-TAZOBACTAM 3.375 GM in SODIUM CHLORIDE 0.9% 100 ML IVPB SCH (08:45)
[2024-11-27] MEDS: lisinopriL 20 MG TAB PO SCH (08:46)
[2024-11-27] MEDS: EZETIMIBE 10 MG TAB PO SCH (08:55)
--- NOTE | 2024-11-27 09:52 | XR ---
EXAMINATION TYPE: XR chest 2V DATE OF EXAM: 11/27/2024 9:46 AM COMPARISON: 11/26/2024 CLINICAL INDICATION: Male, 79 years old with history of pneumonia, , TECHNIQUE: PA and lateral views FINDINGS: Heart mildly enlarged. Tortuous/ectatic thoracic aorta redemonstrated with scattered atherosclerotic calcifications. Multifocal patchy opacities especially throughout the right lung persist. Nodular den sities left upper lung are also unchanged. Calcification along the right hemidiaphragm unchanged. Adv anced degenerative change right glenohumeral joint. Partially visualized liver is left shoulder arthr oplasty. IMPRESSION: Evidence of prior asbestos exposure with scattered calcified pleural plaques. Multifocal airspace dis ease on the right persists. Similar mild cardiomegaly. [facility], Workstation: [email or web address], 11/27/2024 9:50 AM
[2024-11-27] MEDS: rOPINIRole HCL 4 MG TABLET PO SCH (11:52)
[2024-11-27] MEDS: ENOXAPARIN 40 MG/0.4 ML SYRINGE SQ SCH (11:53)
[2024-11-27] MEDS: MELOXICAM 7.5 MG TAB PO SCH (11:53)
[2024-11-27] MEDS: ASPIRIN 81 MG PO SCH (11:53)
[2024-11-27] MEDS: HYDROcodone/APAP 10-325MG 1 EACH TAB PO PRN (16:49)
--- NOTE | 2024-11-27 16:51 | P.HPIM ---
History of Present Illness H&P Date: 11/27/24 Chief Complaint: Short of breath Very pleasant 79-year-old male t, follows with Dr. Stewart Ramos. Printing Engineer Dr. Oliveira and web applications architect Dr. Monson. Medical conditions include GERD, hypertension, hyperlipidemia, osteoarthritis, esophageal stricture constriction in the past, aortic valve stenosis, restless leg syndrome. Chronic back pain from a fall in his younger days. Ex-smoker. Patient is a doctors office noted to have a fever. Yesterday. Has got a cough. With congested chest. Appetite is fair. Sent down to the ER. Bit short of breath. Bit tired. Patient is also seeing a physician out of town for his left shoulder problems. Currently he is supposed to wear a sling for 2 weeks. There may be a hairline fracture. Review of systems: GEN.: Fever tired EYES: None HEENT: None NECK: None RESPIRATORY: As above CARDIOVASCULAR: None GASTROINTESTINAL: None GENITOURINARY: None MUSCULOSKELETAL: Chronic low back pain. Left shoulder pain LYMPHATICS: None HEMATOLOGICAL: None PSYCHIATRY: None NEUROLOGICAL: None Social history: Smoked less than a pack half a pack a day for 20 years stopped about 40 years ago. 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 . Physical examination: VITAL SIGNS: 98.5, 67, 18, 96 x 58, 86% room air-on presentation GENERAL: BMI 29.2, sitting edge of the bed, awake not in distress EYES: Pupils equal. Conjunctiva hugh l. HEENT: External appearance of nose and ears normal, oral cavity grossly normal. NECK: JVD not raised; masses not palpable. HEART: First and second heart sounds are normal; no edema. LUNGS: Respiratory rate increased, diminished breath sounds., ABDOMEN: Soft, nontender, liver spleen not palpable, no masses palpable. PSYCH: Alert and oriented x3; mood and affect hugh l. MUSCULOSKELETAL:No Clubbing/cyanosis;muscles-grossly intact. OA. Limited range of motion left shoulder. Left arm in a sling NEUROLOGICAL: Cranial nerves grossly intact; no facial asymmetry, power and sensation grossly intact. LYMPHATICS: No lymph nodes palpable in the axilla and neck INVESTIGATIONS, reviewed in the clinical context: Procalcitonin: 2.3 November 26: White count 9.2 hemoglobin 12.1 platelets 223 sodium 139 potassium 5.2 BUN 33 creatinine 0.88 proBNP 2970 troponin I less than 0.012 EKG tracing personally reviewed by me-normal sinus rhythm. Nonspecific T wave changes. Chest x-ray film personally reviewed by me-patchy airspace disease extending over 2 lobes on the right side . Assessment plan: - multilobar right-sided pneumonia suspect gram-negative organism, causing hypoxia: Had a fever at the doctor's office IV Zosyn Patient treated for pneumonia 2 weeks ago. Given the chest x-ray we will do a CT scan of the chest with contrast. - Acute hypoxic respiratory failure from pneumonia: Oxygen supplement -Restless leg syndrome Requip 4 mg twice daily -Chronic low back pain from prior injury Neurontin 400 mg 3 times daily as needed. Mobic. [place] 10. - Left shoulder dysfunction. Being followed by orthopedics outpatient Left arm in a sling -COPD in a previous smoker DuoNeb 3 times daily -GERD Lansoprazole 30 mg daily -Essential hypertension, Zestril Lopressor -Hyperlipidemia Zetia 10 mg a day -Full code Discussed with patient . CT scan chest. Past Medical History Past Medical History: Heart Failure, GERD/Reflux, Hyperlipidemia, Hypertension, Musculoskeletal Disorder, Osteoarthritis (OA) Additional Past Medical History / Comment(s): esophageal constriction in the past, aortic valve stenosis, RLS, past hx. of compression fx. in back after a fall, chronic back pain, dry cough - has seen Dr. 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, Left Shoulder reverse replacement Past Anesthesia/Blood Transfusion Reactions: No Reported Reaction Past Psychological History: No Psychological Hx Reported Smoking Status: Former smoker Past Alcohol Use History: Occasional Past Drug Use History: None Reported - Past Family History Mother Family Medical History: No Reported History, Hypertension Father Family Medical History: No Reported History, Hypertension Medications and Allergies Home Medications Medication Instructions Recorded Confirmed Type Ezetimibe [Zetia] 10 mg PO DAILY 11/02/21 11/26/24 History Gabapentin [Neurontin] 400 mg PO QID 11/02/21 11/26/24 History HYDROcodone/APAP 10-325MG [[place] 1 tab PO Q6H PRN 11/02/21 11/26/24 History 10-325] Lansoprazole 30 mg PO DAILY 11/02/21 11/26/24 History Meloxicam [Mobic] 15 mg PO DAILY 11/02/21 11/26/24 History Metoprolol Tartrate [Lopressor] 25 mg PO BID 11/02/21 11/26/24 History lisinopriL [Zestril] 20 mg PO DAILY 11/02/21 11/26/24 History modafiniL [Provigil] 200 mg PO DAILY 11/02/21 11/26/24 History rOPINIRole HCL [Requip] 4 mg PO BID 11/02/21 11/26/24 History Rosuvastatin [Crestor] 10 mg PO DAILY 10/17/23 11/26/24 History Aspirin 81 mg PO DAILY tab 11/10/24 11/26/24 Rx Furosemide [Lasix] 40 mg PO DAILY PRN 11/26/24 11/26/24 History Pramipexole [Mirapex] 0.5 mg PO HS 11/26/24 11/26/24 History Allergies Allergy/AdvReac Type Severity Reaction Status Date / Time No Known Allergies Allergy Verified 11/26/24 18:16 Physical Exam Vitals: Vital Signs Temp Pulse Resp BP Pulse Ox 11/27/24 08:03 78 18 11/27/24 07:49 78 11/27/24 07:47 74 18 140/69 96 11/27/24 02:55 64 18 130/64 100 11/26/24 20:45 72 11/26/24 20:30 60 11/26/24 18:44 59 L 11/26/24 18:43 24 11/26/24 18:37 59 L 11/26/24 18:24 55 L 20 123/71 92 L 11/26/24 16:36 67 18 94 L 11/26/24 16:27 98.5 F 67 18 96/58 86 L Intake and Output 11/26/24 11/27/24 11/27/24 22:59 06:59 14:59 Other: Weight 77.111 kg Results CBC & Chem 7: 11/26/24 17:47 11/26/24 17:47 Labs: Abnormal Lab Results - Last 24 Hours (Table) 11/26/24 11/26/24 11/26/24 Range/Units 17:47 17:47 17:47 RBC 4.18 L (4.40-5.60) 10*6/uL Hgb 12.1 L (13.0-17.0) g/dL Hct 37.5 L (39.6-50.0) % Neutrophils # 7.91 H (1.80-7.70) 10*3/uL Lymphocytes # 0.47 L (0.90-5.00) 10*3/uL Eosinophils # 0.00 L (0.04-0.35) 10*3/uL PT 12.8 H (10.0-12.5) sec INR 1.2 H (<1.2) Potassium 5.2 H (3.5-5.1) mmol/L BUN 33 H (9-20) mg/dL Glucose 114 H (74-99) mg/dL
[2024-11-27] MEDS ORDERED: AZITHROMYCIN 500 MG in SODIUM CHLORIDE 0.9% 250 ML IVPB SCH (19:00)
[2024-11-27] MEDS: PRAMIPEXOLE 0.5 MG TAB PO SCH (21:49)
--- NOTE | 2024-11-28 09:27 | CT ---
EXAMINATION TYPE: CT chest wo con DATE OF EXAM: 11/28/2024 9:12 AM COMPARISON: None. CLINICAL INDICATION: Male, 79 years old with history of Recurrent right-sided pneumonia, Recurrent ri ght sided pneumonia TECHNIQUE: Unenhanced CT of the chest was performed with lung and mediastinal window settings submitt ed. The lack of contrast limits evaluation of the vascular, mediastinal and parenchymal structures i ncluding the upper abdomen. CT DLP: 401.9 mGycm, Automated exposure control for dose reduction was used. FINDINGS: LUNGS: Reticular nodular infiltrate throughout the right lung with more focal component seen right lo wer lobe. Correlate for pneumonia/atypical pneumonia. Small right-sided pleural effusion. The left aleta ng is clear at this time. There are calcified pleural plaques seen bilaterally. Hyperinflation compat ible with COPD. MEDIASTINUM/ANNALEE: Small sliding type hiatal hernia. Thoracic aorta is of normal caliber with limited evaluation given lack of contrast. No evidence for mediastinal mass. No lymph nodes greater than 1 cm. HEART: Cardiomegaly is demonstrated. No significant coronary artery calcifications. UPPER ABDOMEN: No significant abnormality is seen. OTHER: Large of 4.6 cm subcutaneous cystic lesion anterior to the sternum likely reflects sebaceous c yst. IMPRESSION: 1. Reticular nodular infiltrate throughout the right lung with more focal component seen right lower lobe. Correlate for pneumonia/atypical pneumonia. Small right-sided pleural effusion. [facility], , 11/28/2024 9:25 AM
--- NOTE | 2024-11-28 12:02 | P.PN ---
Subjective Progress Note Date: 11/28/24 Patient is an 79-year-old male with past medical history significant for dysphagia, esophageal strictures with previous balloon dilation, hiatal hernia, GERD, recurrent pneumonias, hypertension, hyperlipidemia, aortic valve stenosis status post TAVR, and recent left shoulder replacement. Of note, patient has been treated on several occasions for recurrent pneumonias since June,. Chest CT from 07/15/2024 demonstrated patchy infiltrates throughout the right lung. Pleural-based calcifications along the right diaphragm. Most recently, hospitalized 11/08 through 11/10 for right-sided pneumonia and discharged with 3 days worth of Ceftin. Reportedly, did complete these antibiotics, and was f eeling back to normal over the last couple weeks. Presented to the emergency department yesterday evening with a chief complaint of shortness of breath, mostly nonproductive cough, and intermittent fevers. Reportedly, had a doctor's appointment with his orthopedic surgeon, noted to have a temperature of 100.7 F. Workup in the emergency department including a chest x-ray showing increasing patchy airspace opacities most prominent within the right mid and lower lung cook, and to a lesser degree on the left. He was afebrile on arrival to the ED. Did take Tylenol prior to arrival. No significant leukocytosis. CBC with a WBC count of 9.2, hemoglobin 12.1, platelets 223. CMP: Sodium 139, potassium 5.2, chloride 107, serum bicarb 27, BUN 33, creatinine 0.88, glucose 114. Lactic 1.1. Troponin less than 0.012. NT proBNP 2970. Viral 4 Plex negative for influenza A/B, RSV, COVID. Patient currently being evaluated in the emergency department. Currently, resting comfortably on 2 L/min nasal cannula. He is wearing a left arm sling. Endorses above- mentioned symptoms, which reportedly started over the last 24 hours. Cough has been mostly nonproductive. Does report fevers. Denies any recent travel or sick contacts. Denies chest pain, hemoptysis. Denies nausea, vomiting, di arrhea. Reports ongoing issues with dysphagia. His last EGD was in May, with Dr. Moe and underwent balloon dilation of the distal esophageal Schatzki's ring, small hiatal hernia was noted. 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 Normal sinus infusing at 130 mL/h. Nontoxic appearance. Vital signs are stable. The patient is seen today November 28, 2024 in follow-up on the regular medical floor. He is currently sitting up in a chair at the bedside. Awake and alert in no acute distress. Feeling better today compared to yesterday. Maintaining good O2 saturation in the mid 90s on room air. He has been afebrile. Hemodynamically stable. CT scan of the chest revealed reticular nodular infiltrate throughout the right lung with more focal component seen in the right lower lobe. Small right sided pleural effusion. Blood culture revealing no growth. Procalcitonin was 2.36. He remains on Zosyn. Continued on bronchodilators. Lovenox for DVT prophylaxis. Still having issues with difficulty in swallowing. Surgical services consulted. Objective - Vital Signs Vital signs: Vital Signs Temp 98.7 F 11/28/24 07:13 Pulse 76 11/28/24 09:09 Resp 17 11/28/24 07:13 BP 168/76 11/28/24 07:13 Pulse Ox 95 11/28/24 09:09 FiO2 Intake & Output 11/27/24 11/28/24 11/28/24 18:59 06:59 18:59 Intake Total 180 Balance 180 Weight 77.111 kg Intake: Oral 180 Other: Voiding Method Toilet # Voids 2 2 - Exam GENERAL EXAM: Alert, active, pleasant 79-year-old male, on room air, up in a chair, comfortable in no apparent distress. HEAD: Normocephalic. EYES: Normal reaction of pupils, equal size. NOSE: Clear with pink turbinates. THROAT: No erythema or exudates. NECK: No masses, no JVD. CHEST: No chest wall deformity. LUNGS: Equal air entry with few scattered rhonchi in the right lung. CVS: S1 and S2 normal with no audible murmur, regular rhythm. ABDOMEN: No hepatosplenomegaly, normal bowel sounds, no guarding or rigidity. SPINE: No scoliosis or deformity SKIN: No rashes CENTRAL NERVOUS SYSTEM: No focal deficits, tone is normal in all 4 extremities. EXTREMITIES: There is no peripheral edema. No clubbing, no cyanosis. Peripheral pulses are intact. - Labs CBC & Chem 7: 11/26/24 17:47 11/26/24 17:47 Labs: Microbiology - Last 24 Hours (Table) 11/26/24 18:15 Blood Culture - Preliminary Blood Assessment and Plan Assessment: Recurrent right-sided pneumonia, chest x-ray demonstrating increasing patchy airspace opacities most prominent within the right mid and lower lung cook, and to a lesser degree on the left. Pleural plaquing noted near the diaphragm. CT scan of the chest revealed reticular nodular infiltrate throughout the right lung with more focal component seen in the right lower lobe. Procalcitonin 2.36. Remains on Zosyn Acute hypoxemic respiratory failure, secondary to above, covered and on room air Recurrent dysphagia with a history of esophageal strictures and Schatzki ring, most recent undergoing balloon dilation May, Chronic obstructive pulmonary disease History of asbestos exposure and pleural plaquing History of hiatal hernia History of gastroesophageal reflux disease Hypertension History of hyperlipidemia History of aortic valve stenosis status post transcatheter aortic valve replac ement History of left shoulder reverse replacement Former tobacco smoker Plan: The patient was seen and evaluated CT scan of the chest, labs and medications reviewed Remains stable and on room air oxygen Continued on Zosyn Still with dysphagia Surgical services consulted Plan is for EGD in a.m. Continue bronchodilators Lovenox for DVT prophylaxis Protonix for GI prophylaxis We will continue to follow I have personally seen and examined the patient, performed the documentation and the assessment and plan as written. Number of minutes spent on the visit: 10 Dictation was produced using [employer] dictation software. Please excuse any grammatical, word or spelling errors.
--- NOTE | 2024-11-28 12:41 | P.GSCN ---
History of Present Illness Consult date: 11/28/24 History of present illness: CHIEF COMPLAINT: Shortness of breath and cough HISTORY OF PRESENT ILLNESS: This is a 79-year-old male who presented with shortness of breath, cough and fever. He was found to have aspiration pneumonia. He is on antibiotics. He has been having dysphagia. Patient reports that he has coughing and choking with solid foods that has worsened over the last month. He has had issues with dysphagia for several years. He is reports having about 5-6 EGDs with dilation in the past. His last EGD with dilation was in May 2023 and at that time they noted a Schatzki's ring and a small hiatal hernia. Patient denies any abdominal pain. Denies any nausea or vomiting. PAST MEDICAL HISTORY: Heart Failure, GERD/Reflux, Hyperlipidemia, Hypertension, Musculoskeletal Disorder, Osteoarthritis (OA), esophageal constriction in the past, aortic valve stenosis, RLS, past hx. of compression fx. in back after a fall, chronic back pain, PAST SURGICAL HISTORY: Multiple EGDs with dilation, transcatheter aortic valve replacement completed 01/06/22, Left Shoulder reverse replacement MEDICATIONS: See below ALLERGIES: See below SOCIAL HISTORY: No illicit drug use. REVIEW OF SYSTEMS: CONSTITUTIONAL: Denies fever or chills. HEENT: Denies blurred vision, vision changes, or eye pain. Denies hemoptysis CARDIOVASCULAR: Denies chest pain or pressure. RESPIRATORY: No shortness of breath. GASTROINTESTINAL: See HPI for pertinent findings HEMATOLOGIC: Denies bleeding disorders. GENITOURINARY: Denies any blood in urine or increased urinary frequency. SKIN: Denies pruitis. Denies rash. PHYSICAL EXAM: VITAL SIGNS: Reviewed GENERAL: Well-developed in no acute distress. HEENT: No sclera icterus. Extraocular movements grossly intact. Moist buccal mucosa. Head is atraumatic, normocephalic. No nasal drainage. ABDOMEN: Soft. Nondistended. Nontender NEUROLOGIC: Alert and oriented. Cranial nerves II through XII grossly intact. LABORATORY DATA: WBC 9.24 Hgb 12.1 platelets 223 Sodium 139 potassium 5.2 creatinine 0.88 Lactic acid 1.1 LFTs normal IMAGING: CT chest reports reticular nodular infiltrate throughout the lung with more focal component seen lobe. Correlate for pneumonia/atypical pneumonia. Small right-sided pleural effusion. ASSESSMENT: 1. Dysphagia. Prior history of multiple EGDs with dilation 2. History of Schatzki's ring and small hiatal hernia 3. Aspiration pneumonia PLAN: - Patient scheduled for EGD with possible dilation tomorrow with Dr. Spring - N.p.o. after midnight Physician Senior Courtroom Clerk note has been reviewed by physician. Signing provider agrees with the documented findings, assessment, and plan of care. Past Medical History Past Medical History: Heart Failure, GERD/Reflux, Hyperlipidemia, Hypertension, Musculoskeletal Disorder, Osteoarthritis (OA) Additional Past Medical History / Comment(s): esophageal constriction in the past, aortic valve stenosis, RLS, past hx. of compression fx. in back after a fall, chronic back pain, dry cough - has seen Dr. 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, Left Shoulder reverse replacement Past Anesthesia/Blood Transfusion Reactions: No Reported Reaction Past Psychological History: No Psychological Hx Reported Smoking Status: Former smoker Past Alcohol Use History: Occasional Past Drug Use History: None Reported - Past Family History Mother Family Medical History: No Reported History, Hypertension Father Family Medical History: No Reported History, Hypertension Medications and Allergies Home Medications Medication Instructions Recorded Confirmed Type Ezetimibe [Zetia] 10 mg PO DAILY 11/02/21 11/26/24 History Gabapentin [Neurontin] 400 mg PO QID 11/02/21 11/26/24 History HYDROcodone/APAP 10-325MG [[place] 1 tab PO Q6H PRN 11/02/21 11/26/24 History 10-325] Lansoprazole 30 mg PO DAILY 11/02/21 11/26/24 History Meloxicam [Mobic] 15 mg PO DAILY 11/02/21 11/26/24 History Metoprolol Tartrate [Lopressor] 25 mg PO BID 11/02/21 11/26/24 History lisinopriL [Zestril] 20 mg PO DAILY 11/02/21 11/26/24 History modafiniL [Provigil] 200 mg PO DAILY 11/02/21 11/26/24 History rOPINIRole HCL [Requip] 4 mg PO BID 11/02/21 11/26/24 History Rosuvastatin [Crestor] 10 mg PO DAILY 10/17/23 11/26/24 History Aspirin 81 mg PO DAILY tab 11/10/24 11/26/24 Rx Furosemide [Lasix] 40 mg PO DAILY PRN 11/26/24 11/26/24 History Pramipexole [Mirapex] 0.5 mg PO HS 11/26/24 11/26/24 History Allergies Allergy/AdvReac Type Severity Reaction Status Date / Time No Known Allergies Allergy Verified 11/26/24 18:16 Surgical - Exam Vital Signs Temp Pulse Resp BP Pulse Ox 98.5 F 67 18 96/58 86 L 11/26/24 16:27 11/26/24 16:27 11/26/24 16:27 11/26/24 16:27 11/26/24 16:27 Results - Labs 11/26/24 17:47 11/26/24 17:47 Microbiology - Last 24 Hours (Table) 11/26/24 18:15 Blood Culture - Preliminary Blood
[2024-11-28 13:44] LABS: African American GFR (CKD) >90 (>60 ml/min/1.73 sqM); Anion Gap 11 mmol/L; Blood Urea Nitrogen 16 mg/dL (9-20); Calcium 9.1 mg/dL (8.4-10.2); Carbon Dioxide 25 mmol/L (22-30); Chloride 103 mmol/L (98-107); Glucose 109 mg/dL (74-99); Non-African American GFR(CKD) 87 (>60 ml/min/1.73 sqM); Potassium 4.2 mmol/L (3.5-5.1); Sodium 139 mmol/L (137-145)
--- NOTE | 2024-11-28 18:26 | P.PN ---
Progress Note - Text Progress Note Date: 11/28/24 Chief Complaint: Short of breath Very pleasant 79-year-old male t, follows with Dr. Stewart Ramos. [employer] Agent Dr. Oliveira and phlebotomy coordinator Dr. Monson. Medical conditions include GERD, hypertension, hyperlipidemia, osteoarthritis, esophageal stricture constriction in the past, aortic valve stenosis, restless leg syndrome. Chronic back pain from a fall in his younger days. Ex-smoker. Patient is a doctors office noted to have a fever. Yesterday. Has got a cough. With congested chest. Appetite is fair. Sent down to the ER. Bit short of breath. Bit tired. Patient is also seeing a physician out of town for his left shoulder problems. Currently he is supposed to wear a sling for 2 weeks. There may be a hairline fracture. November 28: Sitting at the edge of the bed. present. Some cough. On IV Zosyn for pneumonia. CT scan shows significant pneumonia especially in the right side. Patient has multiple esophageal dilatation in the past. Dr. Spring consulted for the same. Being scheduled for dilatation tomorrow. Active Medications Hydrocodone Bitart/Acetaminophen (Hydrocodone/Apap 10-325mg 1 Each Tab) 1 each PO Q6H PRN PRN Reason: Pain Last Admin: 11/28/24 06:47 Dose: 1 each Albuterol Sulfate (Albuterol Nebulized 2.5 Mg/3 Ml) 2.5 mg INHALATION RT-QID [facility] Last Admin: 11/28/24 16:35 Dose: 2.5 mg Aspirin (Aspirin 81 Mg) 81 mg PO DAILY [facility] Last Admin: 11/28/24 08:27 Dose: 81 mg Ezetimibe (Ezetimibe 10 Mg Tab) 10 mg PO DAILY [facility] Last Admin: 11/28/24 08:27 Dose: 10 mg Enoxaparin Sodium (Enoxaparin 40 Mg/0.4 Ml Syringe) 40 mg SQ DAILY [facility] Last Admin: 11/28/24 08:27 Dose: 40 mg Gabapentin (Gabapentin 400 Mg Cap) 400 mg PO QID [facility] Last Admin: 11/28/24 17:25 Dose: 400 mg Sodium Chloride (Saline 0.9%) 1,000 mls @ 10 mls/hr IV .Q24H [facility] Last Admin: 11/28/24 08:31 Dose: Not Given Piperacillin Sod/Tazobactam (Sod 3.375 gm/ Sodium Chloride) 100 mls @ 25 mls/hr IVPB Q8HR [facility]; Protocol Last Admin: 11/28/24 16:03 Dose: 25 mls/hr Lisinopril (Lisinopril 20 Mg Tab) 20 mg PO DAILY [facility] Last Admin: 11/28/24 08:27 Dose: 20 mg Meloxicam (Meloxicam 7.5 Mg Tab) 15 mg PO DAILY [facility] Last Admin: 11/28/24 08:27 Dose: 15 mg Metoprolol Tartrate (Metoprolol Tartrate 25 Mg Tab) 25 mg PO BID [facility] Last Admin: 11/28/24 08:27 Dose: 25 mg Miscellaneous Information (Pneumonia Protocol Utilized 1 Each Misc) 1 each PO ONCE PRN PRN Reason: Per Protocol Modafinil (Modafinil 200 Mg Tab) 200 mg PO DAILY [facility] Last Admin: 11/28/24 08:30 Dose: Not Given Pantoprazole Sodium (Pantoprazole 40 Mg Tablet) 40 mg PO AC-BRKFST [facility] Last Admin: 11/28/24 06:47 Dose: 40 mg Pramipexole Dihydrochloride (Pramipexole 0.5 Mg Tab) 0.5 mg PO HS [facility] Last Admin: 11/27/24 21:49 Dose: 0.5 mg Ropinirole HCl (Ropinirole Hcl 4 Mg Tablet) 4 mg PO BID [facility] Last Admin: 11/28/24 08:29 Dose: 4 mg Social history: Smoked less than a pack half a pack a day for 20 years stopped about 40 years ago. 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 . Physical examination: VITAL SIGNS: 98.9, 71, 17, 155% 6, 95% room GENERAL: BMI 29.2, sitting edge of the bed, comfortable EYES: Pupils equal. Conjunctiva hugh l. HEENT: External appearance of nose and ears normal, oral cavity grossly normal. NECK: JVD not raised; masses not palpable. HEART: First and second heart sounds are normal; no edema. LUNGS: Respiratory rate increased, some coarse breath sounds on the right side., ABDOMEN: Soft, nontender, liver spleen not palpable, no masses palpable. PSYCH: Alert and oriented x3; mood and affect hugh l. MUSCULOSKELETAL:No Clubbing/cyanosis;muscles-grossly intact. OA. Limited range of motion left shoulder. Left arm in a sling INVESTIGATIONS, reviewed in the clinical context: CT chest: Reticulonodular infiltrate throughout the right lung with more focal component seen right lower lobe. Procalcitonin: 2.3 November 26: White count 9.2 hemoglobin 12.1 platelets 223 sodium 139 potassium 5.2 BUN 33 creatinine 0.88 proBNP 2970 troponin I less than 0.012 EKG tracing personally reviewed by me-normal sinus rhythm. Nonspecific T wave changes. Chest x-ray film personally reviewed by me-patchy airspace disease extending over 2 lobes on the right side . Assessment plan: - multilobar right-sided pneumonia suspect gram-negative organism, causing hypoxia: Had a fever at the doctor's office IV Zosyn Patient treated for pneumonia 2 weeks ago. Pulmonary following. - Acute hypoxic respiratory failure from pneumonia: Better Oxygen supplement - Some dysphagia. Patient is at multiple esophageal dilatation in the past. Dr. Spring consulted for the same. Plan for dilatation tomorrow -Restless leg syndrome Requip 4 mg twice daily -Chronic low back pain from prior injury Neurontin 400 mg 3 times daily as needed. Mobic. [place] 10. - Left shoulder dysfunction. Being followed by orthopedics outpatient Left arm in a sling -COPD in a previous smoker DuoNeb 3 times daily -GERD Lansoprazole 30 mg daily -Essential hypertension, Zestril Lopressor -Hyperlipidemia Zetia 10 mg a day -Full code Discussed with the patient and . N.p.o. after midnight except medications for esophageal dilatation Past Medical History Past Medical History: Heart Failure, GERD/Reflux, Hyperlipidemia, Hypertension, Musculoskeletal Disorder, Osteoarthritis (OA) Additional Past Medical History / Comment(s): esophageal constriction in the past, aortic valve stenosis, RLS, past hx. of compression fx. in back after a fall, chronic back pain, dry cough - has seen Dr. 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, Left Shoulder reverse replacement Past Anesthesia/Blood Transfusion Reactions: No Reported Reaction Past Psychological History: No Psychological Hx Reported Smoking Status: Former smoker Past Alcohol Use History: Occasional Past Drug Use History: None Reported
[2024-11-29 05:05] LABS: HCT 33.6 % (39.6-50.0); HGB 10.8 g/dL (13.0-17.0); MCH 29.2 pg (27.0-32.0); MCHC 32.1 g/dL (32.0-37.0); MCV 90.8 fL (80.0-97.0); Mean Platelet Volume 9.8 fL (9.5-12.2); Platelet Count 228 10*3/uL (140-440); RDW 14.6 % (11.5-14.5); WBC 7.23 10*3/uL (4.50-10.00)
[2024-11-29 05:22] LABS: Prothrombin Time 11.2 sec (10.0-12.5)
[2024-11-29 05:24] LABS: African American GFR (CKD) >90 (>60 ml/min/1.73 sqM); Anion Gap 8 mmol/L; Blood Urea Nitrogen 19 mg/dL (9-20); Calcium 9.2 mg/dL (8.4-10.2); Carbon Dioxide 25 mmol/L (22-30); Chloride 106 mmol/L (98-107); Glucose 101 mg/dL (74-99); Non-African American GFR(CKD) 79 (>60 ml/min/1.73 sqM); Potassium 4.4 mmol/L (3.5-5.1); Sodium 139 mmol/L (137-145)
[2024-11-29] MEDS: IV FLUID CONTINUATION 1,000 ML IV ONE (11:49)
--- NOTE | 2024-11-29 11:59 | P.OP ---
Date of Procedure: 11/29/24 Preoperative Diagnosis: Gerd Postoperative Diagnosis: Mild esophagitis Procedure(s) Performed: EGD Anesthesia: MAC Surgeon: Chito Spring Pathology: other (Esophagus) Condition: stable Disposition: PACU Description of Procedure: Patient was placed on the endoscopy table in the lateral position. He received IV sedation. The gastric was placed oropharynx passed in the esophagus into the stomach. The scope was then placed through the pylorus. The 1st and 2nd portion of the duodenum appeared normal. The scope was then brought back to the antrum this appeared normal. Scope was retroflexed and no significant hiatal hernia was seen. The GE junction was at 40 cm. The distal esophagus appeared mildly Flaim. A biopsy was performed. The proximal esophagus appeared normal. Scope withdrawn from the patient.
--- NOTE | 2024-11-29 12:32 | P.PN ---
Subjective Progress Note Date: 11/29/24 Patient is an 79-year-old male with past medical history significant for dysphagia, esophageal strictures with previous balloon dilation, hiatal hernia, GERD, recurrent pneumonias, hypertension, hyperlipidemia, aortic valve stenosis status post TAVR, and recent left shoulder replacement. Of note, patient has been treated on several occasions for recurrent pneumonias since June,. Chest CT from 07/15/2024 demonstrated patchy infiltrates throughout the right lung. Pleural-based calcifications along the right diaphragm. Most recently, hospitalized 11/08 through 11/10 for right-sided pneumonia and discharged with 3 days worth of Ceftin. Reportedly, did complete these antibiotics, and was f eeling back to normal over the last couple weeks. Presented to the emergency department yesterday evening with a chief complaint of shortness of breath, mostly nonproductive cough, and intermittent fevers. Reportedly, had a doctor's appointment with his orthopedic surgeon, noted to have a temperature of 100.7 F. Workup in the emergency department including a chest x-ray showing increasing patchy airspace opacities most prominent within the right mid and lower lung cook, and to a lesser degree on the left. He was afebrile on arrival to the ED. Did take Tylenol prior to arrival. No significant leukocytosis. CBC with a WBC count of 9.2, hemoglobin 12.1, platelets 223. CMP: Sodium 139, potassium 5.2, chloride 107, serum bicarb 27, BUN 33, creatinine 0.88, glucose 114. Lactic 1.1. Troponin less than 0.012. NT proBNP 2970. Viral 4 Plex negative for influenza A/B, RSV, COVID. Patient currently being evaluated in the emergency department. Currently, resting comfortably on 2 L/min nasal cannula. He is wearing a left arm sling. Endorses above- mentioned symptoms, which reportedly started over the last 24 hours. Cough has been mostly nonproductive. Does report fevers. Denies any recent travel or sick contacts. Denies chest pain, hemoptysis. Denies nausea, vomiting, di arrhea. Reports ongoing issues with dysphagia. His last EGD was in May, with Dr. Moe and underwent balloon dilation of the distal esophageal Schatzki's ring, small hiatal hernia was noted. 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 Normal sinus infusing at 130 mL/h. Nontoxic appearance. Vital signs are stable. The patient is seen today November 28, 2024 in follow-up on the regular medical floor. He is currently sitting up in a chair at the bedside. Awake and alert in no acute distress. Feeling better today compared to yesterday. Maintaining good O2 saturation in the mid 90s on room air. He has been afebrile. Hemodynamically stable. CT scan of the chest revealed reticular nodular infiltrate throughout the right lung with more focal component seen in the right lower lobe. Small right sided pleural effusion. Blood culture revealing no growth. Procalcitonin was 2.36. He remains on Zosyn. Continued on bronchodilators. Lovenox for DVT prophylaxis. Still having issues with difficulty in swallowing. Surgical services consulted. The patient is seen today November 29, 2024 in follow-up on the regular medical floor. He is awake and alert in no acute distress. Maintaining O2 saturations in the 90s on room air oxygen. He is sitting up in a chair at the bedside. Denies any worsening shortness of breath, cough or congestion. White count 7.2. Hemoglobin 10.8. Platelets 228. Sodium 139. Potassium 4.4. Bicarb 25. BUN 19. Creatinine 0.9. Glucose 101. He remains on Zosyn. Remains on bronchodilators. Lovenox for DVT prophylaxis. Plan is for EGD today. Objective - Vital Signs Vital signs: Vital Signs Temp 98.2 F 11/29/24 07:22 Pulse 65 11/29/24 07:22 Resp 17 11/29/24 07:22 BP 147/50 11/29/24 07:22 Pulse Ox 96 11/29/24 07:22 FiO2 Intake & Output 11/28/24 11/29/24 11/29/24 18:59 06:59 18:59 Intake Total 600 100 Balance 600 100 Intake: IV 100 Oral 600 Other: Voiding Method Toilet Toilet Toilet # Voids 3 3 - Exam GENERAL EXAM: Alert, 79-year-old male, on room air, up in a chair, comfortable in no apparent distress. HEAD: Normocephalic. EYES: Normal reaction of pupils, equal size. NOSE: Clear with pink turbinates. THROAT: No erythema or exudates. NECK: No masses, no JVD. CHEST: No chest wall deformity. LUNGS: Equal air entry with few scattered rhonchi in the right lung. CVS: S1 and S2 normal with no audible murmur, regular rhythm. ABDOMEN: No hepatosplenomegaly, normal bowel sounds, no guarding or rigidity. SPINE: No scoliosis or deformity SKIN: No rashes CENTRAL NERVOUS SYSTEM: No focal deficits, tone is normal in all 4 extremities. EXTREMITIES: There is no peripheral edema. No clubbing, no cyanosis. Peripheral pulses are intact. - Labs CBC & Chem 7: 11/29/24 04:12 11/29/24 04:12 Labs: Abnormal Lab Results - Last 24 Hours (Table) 11/28/24 11/29/24 11/29/24 Range/Units 13:01 04:12 04:12 RBC 3.70 L (4.40-5.60) 10*6/uL Hgb 10.8 L (13.0-17.0) g/dL Hct 33.6 L (39.6-50.0) % RDW 14.6 H (11.5-14.5) % Glucose 109 H 101 H (74-99) mg/dL Microbiology - Last 24 Hours (Table) 11/26/24 18:15 Blood Culture - Preliminary Blood 11/28/24 11:58 Gram Stain - Preliminary Sputum Assessment and Plan Assessment: Recurrent right-sided pneumonia, chest x-ray demonstrating increasing patchy airspace opacities most prominent within the right mid and lower lung cook, and to a lesser degree on the left. Pleural plaquing noted near the diaphragm. CT scan of the chest revealed reticular nodular infiltrate throughout the right lung with more focal component seen in the right lower lobe. Procalcitonin 2.36. Remains on Zosyn Acute hypoxemic respiratory failure, secondary to above, covered and on room air Recurrent dysphagia with a history of esophageal strictures and Schatzki ring, most recent undergoing balloon dilation May, Chronic obstructive pulmonary disease History of asbestos exposure and pleural plaquing History of hiatal hernia History of gastroesophageal reflux disease Hypertension History of hyperlipidemia History of aortic valve stenosis status post transcatheter aortic valve replacement History of left shoulder reverse replacement Former tobacco smoker Plan: The patient was seen and evaluated Labs and medications reviewed Remains on room air oxygen Continued on Zosyn Plan is for EGD today Continue bronchodilators Lovenox for DVT prophylaxis Protonix for GI prophylaxis We will continue to follow I have personally seen and examined the patient, performed the documentation and the assessment and plan as written. Number of minutes spent on the visit: 10 Dictation was produced using [employer] dictation software. Please excuse any grammatical, word or spelling errors.
--- NOTE | 2024-11-29 13:33 | P.PN ---
Subjective Progress Note Date: 11/29/24 SURGICAL PROGRESS NOTE CHIEF COMPLAINT: Aspiration pneumonia HISTORY OF PRESENT ILLNESS: Surgical service is following in regards to dysphagia. Patient scheduled with EGD with possible dilation today. Vital stable. WBC 7.23 Hgb 10.8 PHYSICAL EXAM: VITAL SIGNS: Reviewed. GENERAL: Well-developed in no acute distress. ABDOMEN: Soft. Nondistended. Nontender. NEUROLOGIC: Alert and oriented. Cranial nerves II through XII grossly intact. ASSESSMENT: 1. Dysphagia. Prior history of multiple EGDs with dilation 2. History of Schatzki's ring and small hiatal hernia 3. Aspiration pneumonia PLAN: - Patient scheduled for EGD with possible dilation today Physician Cafe Cook note has been reviewed by physician. Signing provider agrees with the documented findings, assessment, and plan of care. Objective - Vital Signs Vital signs: Vital Signs Temp 98.2 F 11/29/24 07:22 Pulse 65 11/29/24 07:22 Resp 17 11/29/24 07:22 BP 147/50 11/29/24 07:22 Pulse Ox 96 11/29/24 07:22 FiO2 Intake & Output 11/28/24 11/29/24 11/29/24 18:59 06:59 18:59 Intake Total 600 100 Balance 600 100 Intake: IV 100 Oral 600 Other: Voiding Method Toilet Toilet Toilet # Voids 3 3 - Labs CBC & Chem 7: 11/29/24 04:12 11/29/24 04:12 Labs: Abnormal Lab Results - Last 24 Hours (Table) 11/28/24 11/29/24 11/29/24 Range/Units 13:01 04:12 04:12 RBC 3.70 L (4.40-5.60) 10*6/uL Hgb 10.8 L (13.0-17.0) g/dL Hct 33.6 L (39.6-50.0) % RDW 14.6 H (11.5-14.5) % Glucose 109 H 101 H (74-99) mg/dL Microbiology - Last 24 Hours (Table) 11/26/24 18:15 Blood Culture - Preliminary Blood 11/28/24 11:58 Gram Stain - Preliminary Sputum
--- NOTE | 2024-11-29 17:07 | P.PN ---
Progress Note - Text Progress Note Date: 11/29/24 Chief Complaint: Short of breath Very pleasant 79-year-old male t, follows with Dr. Stewart Ramos. Works Manager Dr. Oliveira and smoke room operator Dr. Monson. Medical conditions include GERD, hypertension, hyperlipidemia, osteoarthritis, esophageal stricture constriction in the past, aortic valve stenosis, restless leg syndrome. Chronic back pain from a fall in his younger days. Ex-smoker. Patient is a doctors office noted to have a fever. Yesterday. Has got a cough. With congested chest. Appetite is fair. Sent down to the ER. Bit short of breath. Bit tired. Patient is also seeing a physician out of town for his left shoulder problems. Currently he is supposed to wear a sling for 2 weeks. There may be a hairline fracture. November 28: Sitting at the edge of the bed. present. Some cough. On IV Zosyn for pneumonia. CT scan shows significant pneumonia especially in the right side. Patient has multiple esophageal dilatation in the past. Dr. Spring consulted for the same. Being scheduled for dilatation tomorrow. November 29: Patient underwent EGD by Dr Spring. Distal esophagus appeared mildly inflamed. Biopsies performed. No dilatation was done. Patient has slight cough. On IV Zosyn. Active Medications Hydrocodone Bitart/Acetaminophen (Hydrocodone/Apap 10-325mg 1 Each Tab) 1 each PO Q6H PRN PRN Reason: Pain Last Admin: 11/29/24 07:47 Dose: 1 each Albuterol Sulfate (Albuterol Nebulized 2.5 Mg/3 Ml) 2.5 mg INHALATION RT-QID [facility] Last Admin: 11/29/24 15:32 Dose: 2.5 mg Aspirin (Aspirin 81 Mg) 81 mg PO DAILY [facility] Last Admin: 11/29/24 09:07 Dose: Not Given Ezetimibe (Ezetimibe 10 Mg Tab) 10 mg PO DAILY [facility] Last Admin: 11/29/24 07:49 Dose: 10 mg Enoxaparin Sodium (Enoxaparin 40 Mg/0.4 Ml Syringe) 40 mg SQ DAILY [facility] Last Admin: 11/29/24 09:07 Dose: Not Given Gabapentin (Gabapentin 400 Mg Cap) 400 mg PO QID [facility] Last Admin: 11/29/24 12:22 Dose: 400 mg Sodium Chloride (Saline 0.9%) 1,000 mls @ 10 mls/hr IV .Q24H [facility] Last Admin: 11/29/24 07:51 Dose: Not Given Piperacillin Sod/Tazobactam (Sod 3.375 gm/ Sodium Chloride) 100 mls @ 25 mls/hr IVPB Q8HR [facility]; Protocol Last Admin: 11/29/24 15:38 Dose: 25 mls/hr Lisinopril (Lisinopril 20 Mg Tab) 20 mg PO DAILY [facility] Last Admin: 11/29/24 07:49 Dose: 20 mg Meloxicam (Meloxicam 7.5 Mg Tab) 15 mg PO DAILY [facility] Last Admin: 11/29/24 07:50 Dose: 15 mg Metoprolol Tartrate (Metoprolol Tartrate 25 Mg Tab) 25 mg PO BID [facility] Last Admin: 11/29/24 07:49 Dose: 25 mg Miscellaneous Information (Pneumonia Protocol Utilized 1 Each Misc) 1 each PO ONCE PRN PRN Reason: Per Protocol Modafinil (Modafinil 200 Mg Tab) 200 mg PO DAILY [facility] Last Admin: 11/29/24 07:52 Dose: Not Given Pantoprazole Sodium (Pantoprazole 40 Mg Tablet) 40 mg PO AC-BRKFST [facility] Last Admin: 11/29/24 06:58 Dose: Not Given Pramipexole Dihydrochloride (Pramipexole 0.5 Mg Tab) 0.5 mg PO HS [facility] Last Admin: 11/28/24 21:18 Dose: 0.5 mg Ropinirole HCl (Ropinirole Hcl 4 Mg Tablet) 4 mg PO BID [facility] Last Admin: 11/29/24 07:52 Dose: Not Given Social history: Smoked less than a pack half a pack a day for 20 years stopped about 40 years ago. 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 . Physical examination: VITAL SIGNS: 98.1, 61, 18, 1 5691, 91% room air GENERAL: BMI 29.2, sitting edge of the bed, comfortable EYES: Pupils equal. Conjunctiva hugh l. HEENT: External appearance of nose and ears normal, oral cavity grossly normal. NECK: JVD not raised; masses not palpable. HEART: First and second heart sounds are normal; no edema. LUNGS: Respiratory rate increased, some coarse breath sounds on the right side., ABDOMEN: Soft, nontender, liver spleen not palpable, no masses palpable. PSYCH: Alert and oriented x3; mood and affect hugh l. MUSCULOSKELETAL:No Clubbing/cyanosis;muscles-grossly intact. OA. Limited range of motion left shoulder. Left arm in a sling INVESTIGATIONS, reviewed in the clinical context: CT chest: Reticulonodular infiltrate throughout the right lung with more focal component seen right lower lobe. Procalcitonin: 2.3 November 26: White count 9.2 hemoglobin 12.1 platelets 223 sodium 139 potassium 5.2 BUN 33 creatinine 0.88 proBNP 2970 troponin I less than 0.012 EKG tracing personally reviewed by me-normal sinus rhythm. Nonspecific T wave changes. Chest x-ray film personally reviewed by me-patchy airspace disease extending over 2 lobes on the right side . Assessment plan: - multilobar right-sided pneumonia suspect gram-negative organism, causing hypoxia: Had a fever at the doctor's office IV [facility] Patient treated for pneumonia 2 weeks ago. Pulmonary following. - Acute hypoxic respiratory failure from pneumonia: Improving 86% on room air on presentation. - Some dysphagia. Patient is at multiple esophageal dilatation in the past. Dr. Spring did EGD today. No stricture identified -Restless leg syndrome Requip 4 mg twice daily -Chronic low back pain from prior injury Neurontin 400 mg 3 times daily as needed. Mobic. [place] 10. - Left shoulder dysfunction. Being followed by orthopedics outpatient Left arm in a sling -COPD in a previous smoker DuoNeb 3 times daily -GERD Lansoprazole 30 mg daily -Essential hypertension, Zestril Lopressor -Hyperlipidemia Zetia 10 mg a day -Full code Continue current medication treatment plan. Follow with pulmonary. Discussed with the patient and . Past Medical History Past Medical History: Heart Failure, GERD/Reflux, Hyperlipidemia, Hypertension, Musculoskeletal Disorder, Osteoarthritis (OA) Additional Past Medical History / Comment(s): esophageal constriction in the past, aortic valve stenosis, RLS, past hx. of compression fx. in back after a fall, chronic back pain, dry cough - has seen Dr. 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, Left Shoulder reverse replacement Past Anesthesia/Blood Transfusion Reactions: No Reported Reaction Past Psychological History: No Psychological Hx Reported Smoking Status: Former smoker Past Alcohol Use History: Occasional Past Drug Use History: None Reported
[2024-11-30 01:32] VITALS: RESP 15
[2024-11-30 07:42] VITALS: BP 163/80; TEMP 97.8
--- NOTE | 2024-11-30 09:51 | XR ---
EXAMINATION TYPE: XR chest 1V portable DATE OF EXAM: 11/30/2024 9:43 AM COMPARISON: 11/27/2024 CLINICAL INDICATION: Male, 79 years old with history of Follow up pneumonia, TECHNIQUE: XR chest 1V portable views of the chest are obtained. FINDINGS: Demonstrated are scattered senescent parenchymal change. Patchy infiltrate about the right perihilar and right medial lung base likely reflect pneumonia in th e appropriate clinical setting. Correlate clinically. Calcified pleural plaques noted. The heart is stable. Hilar and mediastinal structures are within normal limits. Degenerative changes are seen of the dorsal spine. IMPRESSION: 1. Patchy infiltrate about the right perihilar and right medial lung base likely reflect pneumonia i n the appropriate clinical setting. Correlate clinically. Calcified pleural plaques noted. [facility], , 11/30/2024 9:48 AM
[2024-11-30 12:07] VITALS: PULSE 88
--- NOTE | 2024-11-30 13:43 | P.PN ---
Subjective Progress Note Date: 11/30/24 SURGICAL PROGRESS NOTE CHIEF COMPLAINT: Aspiration pneumonia HISTORY OF PRESENT ILLNESS: Surgical service is following in regards to dysphagia. Patient status post EGD which reported mild esophagitis. Patient tolerated regular breakfast. Vitals stable PHYSICAL EXAM: VITAL SIGNS: Reviewed. GENERAL: Well-developed in no acute distress. ABDOMEN: Soft. Nondistended. Nontender. NEUROLOGIC: Alert and oriented. Cranial nerves II through XII grossly intact. ASSESSMENT: 1. Dysphagia. Prior history of multiple EGDs with dilation. Status post EGD with esophagitis 2. History of Schatzki's ring and small hiatal hernia 3. Aspiration pneumonia PLAN: -Patient can be discharged from surgical standpoint. Tolerating regular diet. -Continue PPI -Surgical service will sign off. Please call with any questions or concerns. Physician Supervisor [employer] note has been reviewed by physician. Signing provider agrees with the documented findings, assessment, and plan of care. Objective - Vital Signs Vital signs: Vital Signs Temp 97.8 F 11/30/24 07:42 Pulse 88 11/30/24 12:07 Resp 15 11/30/24 07:42 BP 163/80 11/30/24 07:42 Pulse Ox 93 L 11/30/24 08:44 FiO2 Intake & Output 11/29/24 11/30/24 11/30/24 18:59 06:59 18:59 Intake Total 100 Balance 100 Intake: IV 100 Other: Voiding Method Toilet Toilet # Voids 3 - Labs CBC & Chem 7: 11/29/24 04:12 11/29/24 04:12 Labs: Abnormal Lab Results - Last 24 Hours (Table) 11/30/24 Range/Units 04:11 Procalcitonin 0.57 H (0.02-0.50) ng/mL Microbiology - Last 24 Hours (Table) 11/26/24 18:15 Blood Culture - Preliminary Blood
--- NOTE | 2024-11-30 14:23 | P.PN ---
Subjective Progress Note Date: 11/30/24 Patient is an 79-year-old male with past medical history significant for dysphagia, esophageal strictures with previous balloon dilation, hiatal hernia, GERD, recurrent pneumonias, hypertension, hyperlipidemia, aortic valve stenosis status post TAVR, and recent left shoulder replacement. Of note, patient has been treated on several occasions for recurrent pneumonias since June,. Chest CT from 07/15/2024 demonstrated patchy infiltrates throughout the right lung. Pleural-based calcifications along the right diaphragm. Most recently, hospitalized 11/08 through 11/10 for right-sided pneumonia and discharged with 3 days worth of Ceftin. Reportedly, did complete these antibiotics, and was f eeling back to normal over the last couple weeks. Presented to the emergency department yesterday evening with a chief complaint of shortness of breath, mostly nonproductive cough, and intermittent fevers. Reportedly, had a doctor's appointment with his orthopedic surgeon, noted to have a temperature of 100.7 F. Workup in the emergency department including a chest x-ray showing increasing patchy airspace opacities most prominent within the right mid and lower lung cook, and to a lesser degree on the left. He was afebrile on arrival to the ED. Did take Tylenol prior to arrival. No significant leukocytosis. CBC with a WBC count of 9.2, hemoglobin 12.1, platelets 223. CMP: Sodium 139, potassium 5.2, chloride 107, serum bicarb 27, BUN 33, creatinine 0.88, glucose 114. Lactic 1.1. Troponin less than 0.012. NT proBNP 2970. Viral 4 Plex negative for influenza A/B, RSV, COVID. Patient currently being evaluated in the emergency department. Currently, resting comfortably on 2 L/min nasal cannula. He is wearing a left arm sling. Endorses above- mentioned symptoms, which reportedly started over the last 24 hours. Cough has been mostly nonproductive. Does report fevers. Denies any recent travel or sick contacts. Denies chest pain, hemoptysis. Denies nausea, vomiting, di arrhea. Reports ongoing issues with dysphagia. His last EGD was in May, with Dr. Moe and underwent balloon dilation of the distal esophageal Schatzki's ring, small hiatal hernia was noted. 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 Normal sinus infusing at 130 mL/h. Nontoxic appearance. Vital signs are stable. The patient is seen today November 28, 2024 in follow-up on the regular medical floor. He is currently sitting up in a chair at the bedside. Awake and alert in no acute distress. Feeling better today compared to yesterday. Maintaining good O2 saturation in the mid 90s on room air. He has been afebrile. Hemodynamically stable. CT scan of the chest revealed reticular nodular infiltrate throughout the right lung with more focal component seen in the right lower lobe. Small right sided pleural effusion. Blood culture revealing no growth. Procalcitonin was 2.36. He remains on Zosyn. Continued on bronchodilators. Lovenox for DVT prophylaxis. Still having issues with difficulty in swallowing. Surgical services consulted. The patient is seen today November 29, 2024 in follow-up on the regular medical floor. He is awake and alert in no acute distress. Maintaining O2 saturations in the 90s on room air oxygen. He is sitting up in a chair at the bedside. Denies any worsening shortness of breath, cough or congestion. White count 7.2. Hemoglobin 10.8. Platelets 228. Sodium 139. Potassium 4.4. Bicarb 25. BUN 19. Creatinine 0.9. Glucose 101. He remains on Zosyn. Remains on bronchodilators. Lovenox for DVT prophylaxis. Plan is for EGD today. The patient is seen today November 30, 2024 in follow-up on the regular medical floor. He is currently sitting up in a chair at the bedside. Awake and alert in no acute distress. Denies any worsening shortness of breath, cough or congestion. He is maintaining good O2 saturations in the 90s on room air. Chest x-ray reveals improved patchy infiltrate at the right perihilar and right medial lung base. EGD revealed some evidence of reflux disease. No narrowing or strictures. He is continued on Zosyn. Remains on bronchodilators. Lovenox for DVT prophylaxis. Procalcitonin improved down to 0.57. Objective - Vital Signs Vital signs: Vital Signs Temp 97.8 F 11/30/24 07:42 Pulse 88 11/30/24 12:07 Resp 15 11/30/24 07:42 BP 163/80 11/30/24 07:42 Pulse Ox 93 L 11/30/24 08:44 FiO2 Intake & Output 11/29/24 11/30/24 11/30/24 18:59 06:59 18:59 Intake Total 100 Balance 100 Intake: IV 100 Other: Voiding Method Toilet Toilet # Voids 3 - Exam GENERAL EXAM: Alert, very pleasant 79-year-old male, on room air, up in a chair, in no apparent distress. HEAD: Normocephalic. EYES: Normal reaction of pupils, equal size. NOSE: Clear with pink turbinates. THROAT: No erythema or exudates. NECK: No masses, no JVD. CHEST: No chest wall deformity. LUNGS: Equal air entry with few scattered rhonchi in the right lung. CVS: S1 and S2 normal with no audible murmur, regular rhythm. ABDOMEN: No hepatosplenomegaly, normal bowel sounds, no guarding or rigidity. SPINE: No scoliosis or deformity SKIN: No rashes CENTRAL NERVOUS SYSTEM: No focal deficits, tone is normal in all 4 extremities. EXTREMITIES: There is no peripheral edema. No clubbing, no cyanosis. Peripheral pulses are intact. - Labs CBC & Chem 7: 11/29/24 04:12 11/29/24 04:12 Labs: Abnormal Lab Results - Last 24 Hours (Table) 11/30/24 Range/Units 04:11 Procalcitonin 0.57 H (0.02-0.50) ng/mL Microbiology - Last 24 Hours (Table) 11/26/24 18:15 Blood Culture - Preliminary Blood Assessment and Plan Assessment: Recurrent right-sided pneumonia, chest x-ray demonstrating increasing patchy airspace opacities most prominent within the right mid and lower lung cook, a nd to a lesser degree on the left. Pleural plaquing noted near the diaphragm. CT scan of the chest revealed reticular nodular infiltrate throughout the right lung with more focal component seen in the right lower lobe. Procalcitonin 2.36. Remains on Zosyn. Procalcitonin improved to 0.57. Today's chest x-ray shows improved aeration of the right lung. Acute hypoxemic respiratory failure, secondary to above, recovered and on room air Recurrent dysphagia with a history of esophageal strictures and Schatzki ring, most recent undergoing balloon dilation May, Chronic obstructive pulmonary disease History of asbestos exposure and pleural plaquing History of hiatal hernia History of gastroesophageal reflux disease Hypertension History of hyperlipidemia History of aortic valve stenosis status post transcatheter aortic valve replacement History of left shoulder reverse replacement Former tobacco smoker Plan: The patient was seen and evaluated Chest x-ray, labs and medications reviewed X-ray showing improvement Procalcitonin showing improvement Remains on room air oxygen Be discharged to home Completed course of antibiotics Continue on omeprazole Albuterol HFA as needed Follow-up in our office in 1 week I have personally seen and examined the patient, performed the documentation and the assessment and plan as written. Number of minutes spent on the visit: 10 Dictation was produced using [employer] dictation software. Please excuse any grammatical, word or spelling errors.
--- NOTE | 2024-11-30 17:20 | P.DS ---
Providers Date of admission: 11/26/24 20:16 Expected date of discharge: 11/30/24 Attending physician: Charles Donnelly Consults: 11/26/24 20:14 Consult Physician Routine Consulting Provider: Juan Diego Monson Consult Reason/Comments: hypoxia Do you want consulting provider notified?: Yes [facility] Course: Chief Complaint: Short of breath Very pleasant 79-year-old male t, follows with Dr. Stewart Ramos. Table Attendant Dr. Oliveira and software test engineer Dr. Monson. Medical conditions include GERD, hypertension, hyperlipidemia, osteoarthritis, esophageal stricture constriction in the past, aortic valve stenosis, restless leg syndrome. Chronic back pain from a fall in his younger days. Ex-smoker. Patient is a doctors office noted to have a fever. Yesterday. Has got a cough. With congested chest. Appetite is fair. Sent down to the ER. Bit short of breath. Bit tired. Patient is also seeing a physician out of town for his left shoulder problems. Currently he is supposed to wear a sling for 2 weeks. There may be a hairline fracture. November 28: Sitting at the edge of the bed. present. Some cough. On IV Zosyn for pneumonia. CT scan shows significant pneumonia especially in the right side. Patient has multiple esophageal dilatation in the past. Dr. Spring consulted for the same. Being scheduled for dilatation tomorrow. November 29: Patient underwent EGD by Dr Spring. Distal esophagus appeared mildly inflamed. Biopsies performed. No dilatation was done. Patient has slight cough. On IV Zosyn. November 30: Doing well. Breathing much better. EGD results discussed with patient. Keen to go home. Patient be discharged Augmentin. Will follow-up with Dr. Monson pulmonary. Social history: Smoked less than a pack half a pack a day for 20 years stopped about 40 years ago. 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 . Physical examination: VITAL SIGNS: 97.8, 63, 15, 163 x 80, 93% room air GENERAL: BMI 29.2, resting, comfortable EYES: Pupils equal. Conjunctiva hugh l. HEENT: External appearance of nose and ears normal, oral cavity grossly normal. NECK: JVD not raised; masses not palpable. HEART: First and second heart sounds are normal; no edema. LUNGS: Respiratory rate normal, some coarse breath sounds on the right side., ABDOMEN: Soft, nontender, liver spleen not palpable, no masses palpable. PSYCH: Alert and oriented x3; mood and affect hugh l. MUSCULOSKELETAL:No Clubbing/cyanosis;muscles-grossly intact. OA. Limited range of motion left shoulder. Left arm in a sling INVESTIGATIONS, reviewed in the clinical context: November 30: Procalcitonin 0.57 CT chest: Reticulonodular infiltrate throughout the right lung with more focal component seen right lower lobe. Procalcitonin: 2.3 November 26: White count 9.2 hemoglobin 12.1 platelets 223 sodium 139 potassium 5.2 BUN 33 creatinine 0.88 proBNP 2970 troponin I less than 0.012 EKG tracing personally reviewed by me-normal sinus rhythm. Nonspecific T wave changes. Chest x-ray film personally reviewed by me-patchy airspace disease extending over 2 lobes on the right side . Assessment plan: - multilobar right-sided pneumonia suspect gram-negative organism, causing hypoxia:: Improved Had a fever at the doctor's office IV [facility] Patient treated for pneumonia 2 weeks ago. Pulmonary following. Discharged on Augmentin 875 twice daily for 5 days - Acute hypoxic respiratory failure from pneumonia: Resolved 86% on room air on presentation. - Some dysphagia. Patient is at multiple esophageal dilatation in the past. Dr. Spring did EGD today. No stricture identified -Restless leg syndrome Requip 4 mg twice daily -Chronic low back pain from prior injury Neurontin 400 mg 3 times daily as needed. Mobic. [place] 10. - Left shoulder dysfunction. Being followed by orthopedics outpatient Left arm in a sling -COPD in a previous smoker DuoNeb 3 times daily -GERD Lansoprazole 30 mg daily -Essential hypertension, Zestril Lopressor -Hyperlipidemia Zetia 10 mg a day -Full code Disposition: Home Past Medical History Past Medical History: Heart Failure, GERD/Reflux, Hyperlipidemia, Hypertension, Musculoskeletal Disorder, Osteoarthritis (OA) Additional Past Medical History / Comment(s): esophageal constriction in the past, aortic valve stenosis, RLS, past hx. of compression fx. in back after a fall, chronic back pain, dry cough - has seen Dr. 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, Left Shoulder reverse replacement Past Anesthesia/Blood Transfusion Reactions: No Reported Reaction Past Psychological History: No Psychological Hx Reported Smoking Status: Former smoker Past Alcohol Use History: Occasional Past Drug Use History: None Reported Plan - Discharge Summary New Discharge Prescriptions: New Albuterol Sulfate [Albuterol Sulfate Hfa] 1 puff PO Q4-6H #8.5 gm Amoxic-Pot Clav 875-125Mg [Augmentin 875-125] 1 tab PO BID #10 tab Omeprazole 40 mg PO DAILY #30 cap Continue rOPINIRole HCL [Requip] 4 mg PO BID modafiniL [Provigil] 200 mg PO DAILY lisinopriL [Zestril] 20 mg PO DAILY Metoprolol Tartrate [Lopressor] 25 mg PO BID Meloxicam [Mobic] 15 mg PO DAILY Lansoprazole 30 mg PO DAILY HYDROcodone/APAP 10-325MG [[place] 10-325] 1 tab PO Q6H PRN PRN Reason: Pain Gabapentin [Neurontin] 400 mg PO QID Rosuvastatin [Crestor] 10 mg PO DAILY Aspirin 81 mg PO DAILY tab Pramipexole [Mirapex] 0.5 mg PO HS Ezetimibe [Zetia] 10 mg PO DAILY Discontinued Furosemide [Lasix] 40 mg PO DAILY PRN PRN Reason: Edema Discharge Medication List Ezetimibe [Zetia] 10 mg PO DAILY 11/02/21 [History] Gabapentin [Neurontin] 400 mg PO QID 11/02/21 [History] HYDROcodone/APAP 10-325MG [[place] 10-325] 1 tab PO Q6H PRN 11/02/21 [History] Lansoprazole 30 mg PO DAILY 11/02/21 [History] Meloxicam [Mobic] 15 mg PO DAILY 11/02/21 [History] Metoprolol Tartrate [Lopressor] 25 mg PO BID 11/02/21 [History] lisinopriL [Zestril] 20 mg PO DAILY 11/02/21 [History] modafiniL [Provigil] 200 mg PO DAILY 11/02/21 [History] rOPINIRole HCL [Requip] 4 mg PO BID 11/02/21 [History] Rosuvastatin [Crestor] 10 mg PO DAILY 10/17/23 [History] Aspirin 81 mg PO DAILY tab 11/10/24 [Rx] Pramipexole [Mirapex] 0.5 mg PO HS 11/26/24 [History] Albuterol Sulfate [Albuterol Sulfate Hfa] 1 puff PO Q4-6H #8.5 gm 11/30/24 [Rx] Amoxic-Pot Clav 875-125Mg [Augmentin 875-125] 1 tab PO BID #10 tab 11/30/24 [Rx] Omeprazole 40 mg PO DAILY #30 cap 11/30/24 [Rx] Follow up Appointment(s)/Referral(s): Juan Diego Monson MD [STAFF PHYSICIAN] - 12/11/24 9:00 am Stewart Ramos MD [Primary Care Provider] - 1-2 days (office closed at time of discharge Please call to schedule appointment ) Chito Spring MD [STAFF PHYSICIAN] - 10 Days Patient Instructions/Handouts: Hypoxia (GEN), Pneumonia (DC) Discharge Disposition: HOME SELF-CARE
== END 2024-11-30 13:41 | disposition home or self-care (01) | DRG 177 ==
LOC: EC 15:35 → 4SSUR 20:16
PROVIDERS: ADMIT Hospitalist; ATTEND Hospitalist
PROC: 0DB48ZX Excision of Esophagogastric Junction, Via Natural or Artificial Opening Endoscopic, Diagnostic (ICD-10-PCS; principal; 2024-11-29 10:15)
DX: J69.0 Pneumonitis due to inhalation of food and vomit (principal); J96.01 Acute respiratory failure with hypoxia; I11.0 Hypertensive heart disease with heart failure; I50.9 Heart failure, unspecified; Z11.52 Encounter for screening for COVID-19; J44.89 Other specified chronic obstructive pulmonary disease; F13.10 Sedative, hypnotic or anxiolytic abuse, uncomplicated; Z95.2 Presence of prosthetic heart valve; G25.81 Restless legs syndrome; I10 Essential (primary) hypertension; K21.9 Gastro-esophageal reflux disease without esophagitis; K21.00 Gastro-esophageal reflux disease with esophagitis, without bleeding; E78.5 Hyperlipidemia, unspecified; G89.29 Other chronic pain; Z77.090 Contact with and (suspected) exposure to asbestos; Z87.891 Personal history of nicotine dependence; M25.512 Pain in left shoulder; Z87.01 Personal history of pneumonia (recurrent); K22.2 Esophageal obstruction; K44.9 Diaphragmatic hernia without obstruction or gangrene; Z91.81 History of falling; Z79.1 Long term (current) use of non-steroidal anti-inflammatories (NSAID); Z79.82 Long term (current) use of aspirin; Z79.899 Other long term (current) drug therapy; Z96.612 Presence of left artificial shoulder joint
CPT/HCPCS: 36415; 43239; 71045; 71046; 71250; 80048; 80053; 83605; 83735; 83880; 84145; 84484; 85025; 85027; 85610; 85730; 87040; 87070; 87077; 87186; 87205; 87449; 87636; 93005; 94640; 94760; 96361; 96365; 96366; 96367; 96372; 96375; 99291

== ENCOUNTER 2024-12-15 09:23 | Inpatient (IN) | payer MEDICARE ==
--- NOTE | 2024-12-15 09:38 | ED ---
General Adult HPI - General Chief complaint: Shortness of Breath Stated complaint: TRISTEN Time Seen by Provider: 12/15/24 09:30 Source: patient, RN notes reviewed, old records reviewed Mode of arrival: wheelchair Limitations: no limitations - History of Present Illness Initial comments: This is an 79-year-old male who presents to the emergency department with difficulty breathing. Patient has a history of a TAVR valve placement. Patient also has had problems with his left shoulder being dislocated. Patient comes in today having difficulty breathing and having a fever. Patient states he was here recently for aspiration pneumonia which she seems to do in his sleep. Patient denies any chest pain or palpitation. Patient has abdominal pain patient has nausea vomiting diarrhea. Patient has noted some increased swelling to his ankles as well. - Related Data Home Medications Medication Instructions Recorded Confirmed Ezetimibe [Zetia] 10 mg PO DAILY 11/02/21 11/26/24 Gabapentin [Neurontin] 400 mg PO QID 11/02/21 11/26/24 HYDROcodone/APAP 10-325MG [[place] 1 tab PO Q6H PRN 11/02/21 11/26/24 10-325] Lansoprazole 30 mg PO DAILY 11/02/21 11/26/24 Meloxicam [Mobic] 15 mg PO DAILY 11/02/21 11/26/24 Metoprolol Tartrate [Lopressor] 25 mg PO BID 11/02/21 11/26/24 lisinopriL [Zestril] 20 mg PO DAILY 11/02/21 11/26/24 modafiniL [Provigil] 200 mg PO DAILY 11/02/21 11/26/24 rOPINIRole HCL [Requip] 4 mg PO BID 11/02/21 11/26/24 Rosuvastatin [Crestor] 10 mg PO DAILY 10/17/23 11/26/24 Pramipexole [Mirapex] 0.5 mg PO HS 11/26/24 11/26/24 Previous Rx's Medication Instructions Recorded Aspirin 81 mg PO DAILY tab 11/10/24 Albuterol Sulfate [Albuterol 1 puff PO Q4-6H #8.5 gm 11/30/24 Sulfate Hfa] Amoxic-Pot Clav 875-125Mg 1 tab PO BID #10 tab 11/30/24 [Augmentin 875-125] Omeprazole 40 mg PO DAILY #30 cap 11/30/24 Allergies Allergy/AdvReac Type Severity Reaction Status Date / Time No Known Allergies Allergy Verified 11/26/24 18:16 Review of Systems ROS Statement: Those systems with pertinent positive or pertinent negative responses have been documented in the HPI. ROS Other: All systems not noted in ROS Statement are negative. Past Medical History Past Medical History: Heart Failure, GERD/Reflux, Hyperlipidemia, Hypertension, Musculoskeletal Disorder, Osteoarthritis (OA) Additional Past Medical History / Comment(s): esophageal constriction in the past, aortic valve stenosis, RLS, past hx. of compression fx. in back after a fall, chronic back pain, dry cough - has seen Dr. 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, Left Shoulder reverse replacement Past Anesthesia/Blood Transfusion Reactions: No Reported Reaction Past Psychological History: No Psychological Hx Reported Smoking Status: Former smoker Past Alcohol Use History: Occasional Past Drug Use History: None Reported - Past Family History Mother Family Medical History: No Reported History, Hypertension Father Family Medical History: No Reported History, Hypertension General Exam - General Exam Comments Initial Comments: GENERAL: Patient is well-developed and well-nourished. Patient is nontoxic and well- hydrated and is in mild distress. ENT: Neck is soft and supple. No significant lymphadenopathy is noted. Oropharynx is clear. Moist mucous membranes. Neck has full range of motion without eliciting any pain. EYES: The sclera were anicteric and conjunctiva were pink and moist. Extraocular movements were intact and pupils were equal round and reactive to light. Eyelids were unremarkable. PULMONARY: Patient has crackles throughout his right lung CARDIOVASCULAR: There is a regular rate and rhythm without any murmurs gallops or rubs. ABDOMEN: Soft and nontender with normal bowel sounds. No palpable organomegaly was noted. There is no palpable pulsatile mass. SKIN: Skin is clear with no lesions or rashes and otherwise unremarkable. NEUROLOGIC: Patient is alert and oriented x3. Cranial nerves II through XII are grossly intact. Motor and sensory are also intact. Normal speech, volume and content. Symmetrical smile. MUSCULOSKELETAL: Normal extremities with adequate strength and full range of motion. Plus edema bilaterally. LYMPHATICS: No significant lymphadenopathy is noted PSYCHIATRIC: Normal psychiatric evaluation. Limitations: no limitations Course Vital Signs 12/15/24 12/15/24 12/15/24 09:25 11:23 12:14 Temperature 101.6 F H 99.5 F Pulse Rate 72 75 72 Respiratory 24 18 20 Rate Blood Pressure 107/60 86/56 97/59 O2 Sat by Pulse 84 L 93 L 94 L Oximetry Medical Decision Making - Medical Decision Making Reported by myself. EKG shows sinus rhythm with frequent PVCs at 98 bpm [place] 136 QRS is 102 QT interval 322 QTc is 377. Patient's EKG shows no ST segment elevation or depression Patient's ideal body weight is 59 kg Was pt. sent in by a medical professional or institution (, PA, PREDICTIVE MAINTENANCE SPECIALIST, urgent care, hospital, or halfway...) When possible be specific @ -No Did you speak to anyone other than the patient for history (EMS, parent, family, police, friend...)? What history was obtained from this source @ -No Did you review nursing and triage notes (agree or disagree)? Why? @ -I reviewed and agree with nursing and triage notes Were old charts reviewed (outside hosp., previous admission, EMS record, old EKG, old radiological studies, urgent care reports/EKG's, halfway records)? Report findings @ -No old charts were reviewed Differential Diagnosis? @ -Differential Fever: Pneumonia, viral URI, endocarditis, myocarditis, pericarditis, otitis, sinusitis, peritonsillar Abscess, retropharyngeal Abscess, epiglottitis, peritonitis, appendicitis, Wendy cystitis, diverticulitis, hepatitis, colitis, UTI, PID, TOA, pyelonephritis, prostatitis, epididymitis, meningitis, encep halitis, pulmonary embolism, CVA, thyroid storm, pancreatitis, adrenal crisis, cavernous sinus thrombosis, this is not meant to be an all-inclusive list. EKG interpreted by me (3pts min.). @ -As above X-rays interpreted by me (1pt min.). @ -Chest x-ray shows right-sided pneumonia CT interpreted by me (1pt min.). @ -None done U/S interpreted by me (1pt. min.). @ -None done What testing was considered but not performed or refused? (CT, X-rays, U/S, labs)? Why? @ -None What meds were considered but not given or refused? Why? @ -None Did you discuss the management of the patient with other professionals (professionals i.e. , PA, PREDICTIVE MAINTENANCE SPECIALIST, lab, RT, psych nurse, marriage and family social worker, aboriginal education teacher, teacher, geological technical officer, complex case manager)? Give summary @ -I spoke with Dr. Vazquez and he agreed to admit the patient Was smoking cessation discussed for >3mins.? @ -No Was critical care preformed (if so, how long)? @ -No Were there social determinants of health that impacted care today? How? (Homelessness, low income, unemployed, alcoholism, drug addiction, transportation, low edu. Level, literacy, decrease access to med. care, shelter, rehab)? @ -No Was there de-escalation of care discussed even if they declined (Discuss DNR or withdrawal of care, Hospice)? DNR status @ -No What co-morbidities impacted this encounter? (DM, HTN, Smoking, COPD, CAD, Cancer, CVA, ARF, Chemo, Hep., AIDS, mental health diagnosis, sleep apnea, morbid obesity)? @ -None Was patient admitted / discharged? Hospital course, mention meds given and route, prescriptions, significant lab abnormalities, going to OR and other pertinent info. @ -Patient's chest x-ray shows infiltrate on the right side. Patient was started on Zosyn [facility] Undiagnosed new problem with uncertain prognosis? @ -No Drug Therapy requiring intensive monitoring for toxicity (Heparin, Nitro, Insulin, Cardizem)? @ -No Were any procedures done? @ -No Diagnosis/symptom? @ -Pneumonia Acute, or Chronic, or Acute on Chronic? @ -Acute Uncomplicated (without systemic symptoms) or Complicated (systemic symptoms)? @ -complicated Side effects of treatment? @ -No Exacerbation, Progression, or Severe Exacerbation? @ -No Poses a threat to life or bodily function? How? (Chest pain, [place], [place], pneumonia, PE, COPD, DKA, ARF, appy, cholecystitis, CVA, Diverticulitis, Homicidal, Suicidal, threat to staff... and all critical care pts) @ -Yes explain the hypoxia and endorgan dysfunction - Lab Data Result diagrams: 12/15/24 09:52 12/15/24 09:52 Lab Results 12/15/24 12/15/24 12/15/24 Range/Units 09:52 09:52 09:52 WBC 8.65 (4.50-10.00) 10*3/uL RBC 4.18 L (4.40-5.60) 10*6/uL Hgb 11.9 L (13.0-17.0) g/dL Hct 36.8 L (39.6-50.0) % MCV 88.0 (80.0-97.0) fL MCH 28.5 (27.0-32.0) pg MCHC 32.3 (32.0-37.0) g/dL Plt Count 258 (140-440) 10*3/uL MPV 9.4 L (9.5-12.2) fL Immature Gran % (Auto) 0.2 % Neutrophils % 90.3 % Lymphocytes % 3.9 % Monocytes % 5.1 % Eosinophils % 0.2 % Basophils % 0.3 % Immature Gran # 0.02 (0.00-0.04) 10*3/uL Neutrophils # 7.80 H (1.80-7.70) 10*3/uL Lymphocytes # 0.34 L (0.90-5.00) 10*3/uL Monocytes # 0.44 (0.20-1.00) 10*3/uL Eosinophils # 0.02 L (0.04-0.35) 10*3/uL Basophils # 0.03 (0.00-0.10) 10*3/uL PT 11.6 (10.0-12.5) sec INR 1.1 (<1.2) APTT 25.2 (22.0-30.0) sec Sodium 139 (137-145) mmol/L Potassium 4.1 (3.5-5.1) mmol/L Chloride 107 (98-107) mmol/L Carbon Dioxide 22 (22-30) mmol/L Anion Gap 10 mmol/L BUN 33 H (9-20) mg/dL Creatinine 0.80 (0.66-1.25) mg/dL Est GFR (CKD-EPI)AfAm >90 (>60 ml/min/1.73 sqM) Est GFR (CKD-EPI)NonAf 84 (>60 ml/min/1.73 sqM) Glucose 133 H (74-99) mg/dL Plasma Lactic Acid Krishna (0.7-2.0) mmol/L Calcium 8.9 (8.4-10.2) mg/dL Total Bilirubin 0.9 (0.2-1.3) mg/dL AST 25 (17-59) U/L ALT 22 (4-49) U/L Alkaline Phosphatase 84 (38-126) U/L Total Protein 6.9 (6.3-8.2) g/dL Albumin 3.8 (3.5-5.0) g/dL Urine Color Urine Appearance (Clear) Urine pH (5.0-8.0) Ur Specific [place] (1.001-1.035) Urine Protein (Negative) Urine Glucose (UA) (Negative) Urine Ketones (Negative) Urine Blood (Negative) Urine Nitrite (Negative) Urine Bilirubin (Negative) Urine Urobilinogen (<2.0) mg/dL Ur Leukocyte Esterase (Negative) 12/15/24 12/15/24 Range/Units 09:52 11:19 WBC (4.50-10.00) 10*3/uL RBC (4.40-5.60) 10*6/uL Hgb (13.0-17.0) g/dL Hct (39.6-50.0) % MCV (80.0-97.0) fL MCH (27.0-32.0) pg MCHC (32.0-37.0) g/dL Plt Count (140-440) 10*3/uL MPV (9.5-12.2) fL Immature Gran % (Auto) % Neutrophils % % Lymphocytes % % Monocytes % % Eosinophils % % Basophils % % Immature Gran # (0.00-0.04) 10*3/uL Neutrophils # (1.80-7.70) 10*3/uL Lymphocytes # (0.90-5.00) 10*3/uL Monocytes # (0.20-1.00) 10*3/uL Eosinophils # (0.04-0.35) 10*3/uL Basophils # (0.00-0.10) 10*3/uL PT (10.0-12.5) sec INR (<1.2) APTT (22.0-30.0) sec Sodium (137-145) mmol/L Potassium (3.5-5.1) mmol/L Chloride (98-107) mmol/L Carbon Dioxide (22-30) mmol/L Anion Gap mmol/L BUN (9-20) mg/dL Creatinine (0.66-1.25) mg/dL Est GFR (CKD-EPI)AfAm (>60 ml/min/1.73 sqM) Est GFR (CKD-EPI)NonAf (>60 ml/min/1.73 sqM) Glucose (74-99) mg/dL Plasma Lactic Acid Krish[place] 1.6 (0.7-2.0) mmol/L Calcium (8.4-10.2) mg/dL Total Bilirubin (0.2-1.3) mg/dL AST (17-59) U/L ALT (4-49) U/L Alkaline Phosphatase (38-126) U/L Total Protein (6.3-8.2) g/dL Albumin (3.5-5.0) g/dL Urine Color Yellow Urine Appearance Clear (Clear) Urine pH 5.5 (5.0-8.0) Ur Specific [place] 1.046 H (1.001-1.035) Urine Protein Trace H (Negative) Urine Glucose (UA) Negative (Negative) Urine Ketones Negative (Negative) Urine Blood Negative (Negative) Urine Nitrite Negative (Negative) Urine Bilirubin Negative (Negative) Urine Urobilinogen 2.0 (<2.0) mg/dL Ur Leukocyte Esterase Negative (Negative) Disposition Clinical Impression: Pneumonia Disposition: ADMITTED IP TO THIS [facility] Time of Disposition: 13:08
[2024-12-15 10:02] LABS: Basophils # (A) 0.03 10*3/uL (0.00-0.10); Basophils % (A) 0.3 %; Eosinophils # (A) 0.02 10*3/uL (0.04-0.35); Eosinophils % (A) 0.2 %; HCT 36.8 % (39.6-50.0); HGB 11.9 g/dL (13.0-17.0); Lymphocytes # (A) 0.34 10*3/uL (0.90-5.00); Lymphocytes % (A) 3.9 %; MCH 28.5 pg (27.0-32.0); MCHC 32.3 g/dL (32.0-37.0); Mean Platelet Volume 9.4 fL (9.5-12.2); Monocytes # (A) 0.44 10*3/uL (0.20-1.00); Monocytes % (A) 5.1 %; Neutrophils % (A) 90.3 %; Platelet Count 258 10*3/uL (140-440); RBC 4.18 10*6/uL (4.40-5.60); RDW 15.1 % (11.5-14.5); WBC 8.65 10*3/uL (4.50-10.00)
[2024-12-15] MEDS: ACETAMINOPHEN TAB 500 MG TAB PO STA (10:05)
[2024-12-15] MEDS: PIPERACILLIN-TAZOBACTAM 3.375 GM in SODIUM CHLORIDE 0.9% 100 ML IVPB STA (10:06)
[2024-12-15] MEDS: IBUPROFEN 600 MG TAB PO STA (10:06)
[2024-12-15 10:25] LABS: INR 1.1 (<1.2); Partial Thromboplastin Time 25.2 sec (22.0-30.0); Prothrombin Time 11.6 sec (10.0-12.5)
[2024-12-15 10:27] LABS: ALT 22 U/L (4-49); AST 25 U/L (17-59); African American GFR (CKD) >90 (>60 ml/min/1.73 sqM); Albumin 3.8 g/dL (3.5-5.0); Alkaline Phosphatase 84 U/L (38-126); Anion Gap 10 mmol/L; Blood Urea Nitrogen 33 mg/dL (9-20); Calcium 8.9 mg/dL (8.4-10.2); Carbon Dioxide 22 mmol/L (22-30); Chloride 107 mmol/L (98-107); Glucose 133 mg/dL (74-99); Non-African American GFR(CKD) 84 (>60 ml/min/1.73 sqM); Potassium 4.1 mmol/L (3.5-5.1); Sodium 139 mmol/L (137-145); Total Bilirubin 0.9 mg/dL (0.2-1.3); Total Protein 6.9 g/dL (6.3-8.2)
[2024-12-15 11:25] LABS: Appearance,Urine Clear (Clear); Bilirubin,Urine Negative (Negative); Blood,Urine Negative (Negative); Color,Urine Yellow; Glucose,Urine (UA) Negative (Negative); Ketones,Urine Negative (Negative); Leukocyte Esterase,Urine Negative (Negative); Nitrite,Urine Negative (Negative); PH, Urine 5.5 (5.0-8.0); Protein,Urine Trace (Negative)
[2024-12-15] MEDS: LACTATED RINGERS 1,000 ML BAG IV STA (11:27)
[2024-12-15 12:07] LABS: Specific Gravity,Urine 1.046 (1.001-1.035)
--- NOTE | 2024-12-15 12:48 | XR ---
Chest, 2 view. CLINICAL INDICATION: Male, 79 years old with history of Shortness of breath COMPARISON: 11/27/2024 TECHNIQUE: PA and lateral views the chest are obtained. FINDINGS: There is significant worsening in the partially consolidative opacity in the right mid and lower lung zone. The left lung remains clear. There is no pneumothorax or large pleural effusion. There is mild cardiomegaly. Aortic stent. The pulmonary vasculature is not congested. There is a reverse left shoulder prosthesis. Impression: interval worsening in the acute cardiopulmonary process involving the right lung as desc ribed above. [facility], , 12/15/2024 12:46 PM
[2024-12-15] MEDS ORDERED: PNEUMONIA PROTOCOL UTILIZED 1 EACH MISC PO PRN (13:09)
[2024-12-15] MEDS: AZITHROMYCIN 500 MG in SODIUM CHLORIDE 0.9% 250 ML IVPB STA (13:19)
[2024-12-15] MEDS: LACTATED RINGERS 1,000 ML IV ONE (13:19)
[2024-12-15] MEDS: PIPERACILLIN-TAZOBACTAM 3.375 GM in SODIUM CHLORIDE 0.9% 100 ML IVPB SCH (15:31)
[2024-12-15] MEDS: IPRATROPIUM-ALBUTEROL 3 ML NEB INHALATION SCH (16:07)
[2024-12-15] MEDS: GABAPENTIN 400 MG CAP PO SCH (17:51)
[2024-12-15] MEDS: HYDROcodone/APAP 10-325MG 1 EACH TAB PO PRN (17:58)
[2024-12-15] MEDS: HEPARIN SODIUM,PORCINE 5,000 UNIT/ML 1 ML VIAL SQ SCH (21:22)
[2024-12-15] MEDS: PRAMIPEXOLE 0.5 MG TAB PO SCH (21:23)
[2024-12-15] MEDS: METOPROLOL TARTRATE 25 MG TAB PO SCH (21:23)
[2024-12-15] MEDS: rOPINIRole HCL 4 MG TABLET PO SCH (21:23)
[2024-12-15] MEDS: LEVOFLOXACIN 750 MG TAB PO SCH (23:28)
--- NOTE | 2024-12-15 23:49 | HP ---
HISTORY AND PHYSICAL CHIEF COMPLAINT: Shortness of breath. HISTORY OF PRESENT ILLNESS: This 79-year-old gentleman with a past medical history of left shoulder dislocation, history of TAVR replacement, had episode of aspiration pneumonia previously apparently. Currently, the patient complains of shortness of breath and cough and fever and the patient came to [facility] and was admitted for further evaluation and treatment. The patient was recently discharged from the hospital with multifocal right- sided pneumonia. There is no history of fever, rigors, chills at this time. PAST MEDICAL HISTORY: History of CHF, hypertension, hyperlipidemia. The rest of history and also the chart is also reviewed. HOME MEDICATIONS: Reviewed, include Requip. Doses and rest of medications reviewed. ALLERGIES: None. FAMILY HISTORY: Hypertension. SOCIAL HISTORY: Previous smoker. REVIEW OF SYSTEMS: Fourteen-point review of systems is negative, except as mentioned earlier. PHYSICAL EXAMINATION: VITAL SIGNS: Pulse 75, blood pressure 98/50, respirations 18. HEENT: Conjunctivae normal. NECK: No JVD. CARDIOVASCULAR: S1, S2. RESPIRATION: Bilateral scattered rhonchi. ABDOMEN: Soft and nontender. LEGS: No edema. NERVOUS SYSTEM: Nonfocal. LABORATORY DATA: Reviewed. ASSESSMENT: 1. Right-sided aspiration pneumonia, recurrent. 2. Rule out aspiration. 3. Congestive heart failure. 4. Hypertension. 5. Hyperlipidemia. 6. History of TAVR. 7. Multiple complex medical issues. RECOMMENDATION: This 79-year-old gentleman presented with multiple complex medical issues. We will monitor the patient closely. I would recommend broad-spectrum IV antibiotics and bronchodilators. Recommend Infectious Disease as well as Pulmonary consultations. Modified barium swallow with speech. I would also recommend repeat chest x-rays also. The patient had reticulonodular infiltrate on the previous CAT scan. The patient is not improving. I would recommend repeat CAT scan also. Otherwise, we will continue to monitor. I would also recommend viral testing also. Home medications will be continued once they are confirmed. MMODL / IJN: [id number] /
[2024-12-16] MEDS ORDERED: PANTOPRAZOLE 40 MG TABLET PO SCH (07:30)
[2024-12-16] MEDS: EZETIMIBE 10 MG TAB PO SCH (08:22)
[2024-12-16] MEDS: MELOXICAM 7.5 MG TAB PO SCH (08:22)
[2024-12-16] MEDS: lisinopriL 20 MG TAB PO SCH (08:22)
[2024-12-16] MEDS: ASPIRIN 81 MG PO SCH (08:23)
[2024-12-16] MEDS: ATORVASTATIN 20 MG TAB PO SCH (08:23)
[2024-12-16] MEDS: PANTOPRAZOLE 40 MG TABLET PO SCH (08:23)
[2024-12-16] MEDS ORDERED: AZITHROMYCIN 500 MG in SODIUM CHLORIDE 0.9% 250 ML IVPB SCH (09:00)
[2024-12-16] MEDS ORDERED: NON FORMULARY DRUG (Lansoprazole [Lansoprazole] 30 MG Capsule.Dr) PO SCH (09:00)
[2024-12-16 09:30] LABS: HGB 9.9 g/dL (13.0-17.0); MCH 27.2 pg (27.0-32.0); MCV 90.7 FL (80.0-97.0); Mean Platelet Volume 9.7 FL (9.5-12.2); NRBC Per 100 WBC 0 X 10*3/uL (0.00-0.01); Platelet Count 230 X 10*3/uL (140-440); RBC 3.64 X 10*6/uL (4.40-5.60); RDW 15.4 % (11.5-14.5); WBC 11.37 X 10*3/uL (4.50-10.00)
--- NOTE | 2024-12-16 09:31 | XR ---
Chest, 2 view. CLINICAL INDICATION: Male, 79 years old with history of pneumonia COMPARISON: 12/15/2024 TECHNIQUE: PA and lateral views the chest are obtained. FINDINGS: There is no significant interval change in the right infrahilar opacification scattered interstitial opacity in the right lung. There is a stable 13.5 mm nodule in the left upper lobe. There is no pleural effusion or pneumothorax. There are stable pleural-based calcifications. The heart, pulmonary vasculature, mediastinum and diamond appear normal. There is a prosthetic aortic va lve. The osseous structures are intact. IMPRESSION: No significant interval change in the acute cardiopulmonary process involving the right lung. IMPRESSION: No significant abnormality seen. No acute cardiopulmonary disease. [facility], , 12/16/2024 9:29 AM
[2024-12-16 09:58] LABS: BUN/Creat Ratio 25.38 Ratio (12.00-20.00); Blood Urea Nitrogen 20.3 mg/dL (9.0-27.0); Calcium 8.3 mg/dL (8.7-10.3); Chloride 106 mmol/L (96-109); Glucose 83 mg/dL (70-110); Potassium 4.3 mmol/L (3.5-5.5); Sodium 139 mmol/L (135-145)
[2024-12-16 10:14] LABS: Basophils # (A) 0.03 X 10*3/uL (0.00-0.10); Basophils % (A) 0.3 %; Eosinophils # (A) 0.06 X 10*3/uL (0.04-0.35); Eosinophils % (A) 0.5 %; Lymphocytes # (A) 0.89 X 10*3/uL (0.90-5.00); Lymphocytes % (A) 7.8 %; Monocytes # (A) 0.68 X 10*3/uL (0.20-1.00); Neutrophils # (A) 9.67 X 10*3/uL (1.80-7.70)
--- NOTE | 2024-12-16 10:42 | P.CONS ---
History of Present Illness - Reason for Consult Consult date: 12/15/24 Pneumonia Requesting physician: Yanelis Fields - Chief Complaint Shortness of breath and cough x few days - History of Present Illness Patient is a 79-year-old male with a past medical history significant for hypertension hyperlipidemia reflux heart failure osteoarthritis, presented to the hospital for evaluation of difficulty breathing and fever patient mention his symptom has been getting worse for the last few days he also have a cough which is moderate intensity but unable to bring up any sputum patient denies having any chest pain no nausea vomiting no choking on the food no abdominal pain and no diarrhea on presentation to the hospital patient did have fever of 101.6 F patient was not tachycardic or hypotensive not hypoxic no need for supplemental oxygen he did have a white count of 8.65 with a left shift creatinine 0.80 electrolytes are normal liver enzymes are normal urine has been negative patient did have a chest x-ray worsening right lung base airspace disease with concern for pneumonia patient has been started on Zithromax and Zosyn admitted to hospital infectious disease was consulted for further management of antibiotic therapy Review of Systems Positive point and negatives has been mentioned in the HPI, complete review of systems was performed and all other systems are negative Past Medical History Past Medical History: Heart Failure, GERD/Reflux, Hyperlipidemia, Hypertension, Musculoskeletal Disorder, Osteoarthritis (OA) Additional Past Medical History / Comment(s): esophageal constriction in the past, aortic valve stenosis, RLS, past hx. of compression fx. in back after a fall, chronic back pain, dry cough - has seen Dr. 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, Left Shoulder reverse replacement Past Anesthesia/Blood Transfusion Reactions: No Reported Reaction Past Psychological History: No Psychological Hx Reported Smoking Status: Former smoker Past Alcohol Use History: Occasional Past Drug Use History: None Reported - Past Family History Mother Family Medical History: No Reported History, Hypertension Father Family Medical History: No Reported History, Hypertension Medications and Allergies Home Medications Medication Instructions Recorded Confirmed Type Ezetimibe [Zetia] 10 mg PO DAILY 11/02/21 12/15/24 History Gabapentin [Neurontin] 400 mg PO QID 11/02/21 12/15/24 History HYDROcodone/APAP 10-325MG [[place] 1 tab PO Q6H PRN 11/02/21 12/15/24 History 10-325] Lansoprazole 30 mg PO DAILY 11/02/21 12/15/24 History Meloxicam [Mobic] 15 mg PO DAILY 11/02/21 12/15/24 History Metoprolol Tartrate [Lopressor] 25 mg PO BID 11/02/21 12/15/24 History lisinopriL [Zestril] 20 mg PO DAILY 11/02/21 12/15/24 History modafiniL [Provigil] 200 mg PO DAILY 11/02/21 12/15/24 History rOPINIRole HCL [Requip] 4 mg PO BID 11/02/21 12/15/24 History Rosuvastatin [Crestor] 10 mg PO DAILY 10/17/23 12/15/24 History Aspirin 81 mg PO DAILY tab 11/10/24 12/15/24 Rx Pramipexole [Mirapex] 0.5 mg PO HS 11/26/24 12/15/24 History Omeprazole 40 mg PO DAILY #30 cap 11/30/24 12/15/24 Rx Albuterol Sulfate [Albuterol 1 puff IN RT-Q4H PRN 12/15/24 12/15/24 History Sulfate Hfa] Allergies Allergy/AdvReac Type Severity Reaction Status Date / Time No Known Allergies Allergy Verified 12/15/24 14:39 Physical Exam Vitals: Vital Signs Temp Pulse Resp BP Pulse Ox 12/15/24 15:30 62 18 100/57 94 L 12/15/24 13:58 75 18 98/55 95 12/15/24 12:14 72 20 97/59 94 L 12/15/24 11:23 99.5 F 75 18 86/56 93 L 12/15/24 09:25 101.6 F H 72 24 107/60 84 L Intake and Output 12/15/24 12/15/24 12/15/24 06:59 14:59 22:59 Other: Weight 73.482 kg GENERAL DESCRIPTION: Elderly male lying in bed, no distress. No tachypnea or accessory muscle of respiration use. HEENT: Shows Pallor , no scleral icterus. Oral mucous membrane is dry. NECK: Trachea central, no thyromegaly. LUNGS: Unlabored breathing. Decreased breath sound at the base HEART: S1, S2, regular rate and rhythm. No loud murmur ABDOMEN: Soft, no tenderness , guarding or rigidity, no organomegaly EXTREMITIES: No edema of feet. SKIN: No rash, no masses palpable. NEUROLOGICAL: The patient is awake, mood and affect normal. Results CBC & Chem 7: 12/16/24 06:28 12/16/24 06:28 Labs: Abnormal Lab Results - Last 24 Hours (Table) 12/15/24 12/15/24 12/15/24 Range/Units 09:52 09:52 11:19 RBC 4.18 L (4.40-5.60) 10*6/uL Hgb 11.9 L (13.0-17.0) g/dL Hct 36.8 L (39.6-50.0) % MPV 9.4 L (9.5-12.2) fL Neutrophils # 7.80 H (1.80-7.70) 10*3/uL Lymphocytes # 0.34 L (0.90-5.00) 10*3/uL Eosinophils # 0.02 L (0.04-0.35) 10*3/uL BUN 33 H (9-20) mg/dL Glucose 133 H (74-99) mg/dL Ur Specific [place] 1.046 H (1.001-1.035) Urine Protein Trace H (Negative) Assessment and Plan (1) Pneumonia Current Visit: Yes Status: Acute Code(s): J18.9 - PNEUMONIA, UNSPECIFIED ORGANISM SNOMED Code(s): 746037920 Plan: 1patient presented to hospital with increasing shortness of breath cough did have a fever with evidence of worsening right lower lobe pneumonia question of community-acquired versus aspiration pneumonia 2we will try to obtain sputum for Gram stain culture 3continue with Zosyn while waiting for the workup to be completed We will follow on clinical condition and cultures to further adjust medication if needed Thank you for this consultation we will follow the patient along with you Dictation was produced using V[employer]il[employer] software. please excuse any grammatical, word or spelling errors. Time with Patient: Greater than 30
--- NOTE | 2024-12-16 11:36 | P.CNPUL ---
History of Present Illness Consult date: 12/15/24 Reason for consult: dyspnea, hypoxemia, pneumonia History of present illness: This is a 79-year-old female patient presented emergency department with worsening shortness of breath. The patient reported fever and worsening shortness of breath. No chest pain. No palpitations. No abdominal pain. No nausea or vomiting. She has developed some increased swelling in lower extremities bilaterally. In the emergency department, the patient was found to be febrile with a Tmax of one 1.6. Blood pressure was soft 102/60 and the patient was placed on oxygen 4 L with a pulse ox of 97%. The white cell count was at 8.5 with a hemoglobin 11.9 and a platelet count of 56. BUN 33 with a creatinine of 0.8. Sodium was at 139 and glucose was at 133. Normal coagulation profile. Normal LFTs. BUN was 33 with a creatinine of 0.8 and a UA was also within normal limits. Chest x-ray was done and it showed consolidation in the right mid and right lower lung with a clear left lung. No evidence of any pneumothorax. No evidence of any pleural effusion. The patient also has a prosthesis in the left shoulder consistent with left shoulder replacement. There is cardiomegaly. Patient was given a combination of Rocephin and and Zosyn. Supplemental oxygen and admitted to the medical floor. Also given 1 liter of lactated Ringer in the emergency department. Home medications have been also resumed. Past medical history includes history of recurrent right lung pneumonia for which the patient was hospitalized on 11/27/2024 and discharged home on 11/30/2024. During the last hospitalization, the patient was evaluate the patient was treated with IV Zosyn and the CAT scan of the chest that was done at that time on 11/28/2024 showed reticulonodular infiltrate involving the right lung and more focal component seen in the right lower lobe and a small right-sided pleural effusion and left lung was clear. There was also calcified pleural plaques bilaterally consistent with previous asbestos exposure and hyperinflation compatible with COPD. In fact, upon comparing the current chest x-ray within earlier chest x-ray that was done during the last hospitalization, the patient's hazy opacity in the right lung has progressed and instability is worse. As such, pulmonary consultation was requested. I also noted that the culture from the sputum on 11/28/2024 was positive for Serratia marcescens. The patient was discharged home on Augmentin and the microorganism was resistant to Augmentin. In addition, it was resistant to cefepime. On a separate note, the patient has history of dysphagia and esophageal strictures and the patient has undergone previous balloon dilatation and during the last hospitalization, the patient had another EGD that showed mild gastritis and esophagitis at the proximal esophagus appeared to be within normal limits. There was no hiatal hernia. Distal esophagus appeared to be mildly inflamed. Biopsies were obtained. In fact, a previous modified barium swallow this was done June 2023 showed moderate esophageal dysmotility and a moderate-sized sliding hiatal hernia And a mild narrowing of the GE junction. The patient has been maintained on PPI taking upwards of 40 mg p.o. on a daily basis. 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 The patient is a former smoker. Review of Systems Constitutional: Reports chills, Reports fatigue, Reports fever, Denies night sweats, Denies poor appetite, Denies weight gain, Denies weight loss Ears, nose, mouth and throat: Denies headache, Denies nasal congestion, Denies nasal discharge, Denies post-nasal drip, Denies sinus pain, Denies sinus pres sure, Denies sore throat Cardiovascular: Denies chest pain, Denies leg edema, Denies lightheadedness, Denies orthopnea, Denies palpitations, Denies paroxysmal nocturnal dyspnea, Denies syncope Respiratory: Reports congestion, Reports cough with sputum, Reports dyspnea, Denies excessive sputum, Denies home oxygen, Denies pain on inspiration, Denies wheezing Gastrointestinal: Denies abdominal pain, Denies change in bowel habits, Denies diarrhea, Denies nausea, Denies vomiting Genitourinary: Denies dysuria Musculoskeletal: Denies shooting arm pain Musculoskeletal: left: shoulder pain, shoulder stiffness, absent: shoulder swelling Integumentary: Denies rash Neurological: Denies head injury, Denies headaches, Denies seizures, Denies syncope Psychiatric: Denies anxiety, Denies depression Past Medical History Past Medical History: Heart Failure, GERD/Reflux, Hyperlipidemia, Hypertension, Musculoskeletal Disorder, Osteoarthritis (OA) Additional Past Medical History / Comment(s): esophageal constriction in the past, aortic valve stenosis, RLS, past hx. of compression fx. in back after a fall, chronic back pain, dry cough - has seen Dr. 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, Left Shoulder reverse replacement Past Anesthesia/Blood Transfusion Reactions: No Reported Reaction Past Psychological History: No Psychological Hx Reported Smoking Status: Former smoker Past Alcohol Use History: Occasional Past Drug Use History: None Reported - Past Family History Mother Family Medical History: No Reported History, Hypertension Father Family Medical History: No Reported History, Hypertension Medications and Allergies Home Medications Medication Instructions Recorded Confirmed Type Ezetimibe [Zetia] 10 mg PO DAILY 11/02/21 12/15/24 History Gabapentin [Neurontin] 400 mg PO QID 11/02/21 12/15/24 History HYDROcodone/APAP 10-325MG [Watson 1 tab PO Q6H PRN 11/02/21 12/15/24 History 10-325] Lansoprazole 30 mg PO DAILY 11/02/21 12/15/24 History Meloxicam [Mobic] 15 mg PO DAILY 11/02/21 12/15/24 History Metoprolol Tartrate [Lopressor] 25 mg PO BID 11/02/21 12/15/24 History lisinopriL [Zestril] 20 mg PO DAILY 11/02/21 12/15/24 History modafiniL [Provigil] 200 mg PO DAILY 11/02/21 12/15/24 History rOPINIRole HCL [Requip] 4 mg PO BID 11/02/21 12/15/24 History Rosuvastatin [Crestor] 10 mg PO DAILY 10/17/23 12/15/24 History Aspirin 81 mg PO DAILY tab 11/10/24 12/15/24 Rx Pramipexole [Mirapex] 0.5 mg PO HS 11/26/24 12/15/24 History Omeprazole 40 mg PO DAILY #30 cap 11/30/24 12/15/24 Rx Albuterol Sulfate [Albuterol 1 puff IN RT-Q4H PRN 12/15/24 12/15/24 History Sulfate Hfa] Allergies Allergy/AdvReac Type Severity Reaction Status Date / Time No Known Allergies Allergy Verified 12/15/24 14:39 Physical Exam Vitals: Vital Signs Temp Pulse Resp BP Pulse Ox 12/15/24 21:27 80 18 91/59 95 12/15/24 19:52 74 12/15/24 19:44 84 12/15/24 18:11 67 20 102/60 97 12/15/24 16:24 68 12/15/24 16:09 67 12/15/24 15:30 62 18 100/57 94 L 12/15/24 13:58 75 18 98/55 95 12/15/24 12:14 72 20 97/59 94 L 12/15/24 11:23 99.5 F 75 18 86/56 93 L 12/15/24 09:25 101.6 F H 72 24 107/60 84 L Intake and Output 12/15/24 12/15/24 12/15/24 06:59 14:59 22:59 Other: Weight 73.482 kg GENERAL EXAM: Alert, very pleasant 79-year-old male, not in acute distress. The patient is currently on 4 L of oxygen by nasal cannula HEAD: Normocephalic. EYES: Normal reaction of pupils, equal size. NOSE: Clear with pink turbinates. THROAT: No erythema or exudates. NECK: No masses, no JVD. CHEST: No chest wall deformity. LUNGS: Equal air entry with few scattered rhonchi in the right lung. CVS: S1 and S2 normal with no audible murmur, regular rhythm. ABDOMEN: No hepatosplenomegaly, normal bowel sounds, no guarding or rigidity. SPINE: No scoliosis or deformity SKIN: No rashes CENTRAL NERVOUS SYSTEM: No focal deficits, tone is normal in all 4 extremities. EXTREMITIES: There is no peripheral edema. No clubbing, no cyanosis. Peripheral pulses are intact. Results - Laboratory Findings CBC and BMP: 12/15/24 09:52 12/15/24 09:52 PT/INR, D-dimer PT 11.6 sec (10.0-12.5) 12/15/24 09:52 INR 1.1 (<1.2) 12/15/24 09:52 Abnormal lab findings: Abnormal Labs 12/15/24 12/15/2425 09:52 09:52 11:19 RBC 4.18 L Hgb 11.9 L Hct 36.8 L MPV 9.4 L Neutrophils # 7.80 H Lymphocytes # 0.34 L Eosinophils # 0.02 L BUN 33 H Glucose 133 H Ur Specific [place] 1.046 H Urine Protein Trace H - Diagnostic Findings Chest x-ray: image reviewed Assessment and Plan Plan: Right-sided pneumonia, recurrent with worsening of the right lower lobe consolidation. Noted the patient was recently hospitalized from 11/27/2024 through 11/30/2024 and treated with IV antibiotics with IV Zosyn and discharged home on Augmentin. Sputum sample was positive for Serratia marcescens, resistant to both microorganisms. Chest x-ray demonstrating worsening and increasing patchy airspace opacities most prominent within the right mid and lower lung cook, and to a lesser degree on the left. Pleural plaquing noted near the diaphragm. Acute hypoxemic respiratory failure, currently on oxygen 40 cc/min nasal cannula Recurrent dysphagia with a history of esophageal strictures and Schatzki ring, most recent undergoing balloon dilation May,. Repeat EGD done On 11/29/2024 showed some distal esophageal inflammatory changes, no strictures, and the biopsy showed benign glandular mucosa with chronic and acute esophagitis. No intestinal metaplasia. Patient is still on PPIs. 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
--- NOTE | 2024-12-16 14:38 | P.PN ---
Subjective Progress Note Date: 12/16/24 This is a 79-year-old female patient presented emergency department with worsening shortness of breath. The patient reported fever and worsening shortness of breath. No chest pain. No palpitations. No abdominal pain. No nausea or vomiting. She has developed some increased swelling in lower extremit ies bilaterally. In the emergency department, the patient was found to be febrile with a Tmax of one 1.6. Blood pressure was soft 102/60 and the patient was placed on oxygen 4 L with a pulse ox of 97%. The white cell count was at 8.5 with a hemoglobin 11.9 and a platelet count of 56. BUN 33 with a creatinine of 0.8. Sodium was at 139 and glucose was at 133. Normal coagulation profile. Normal LFTs. BUN was 33 with a creatinine of 0.8 and a UA was also within normal limits. Chest x-ray was done and it showed consolidation in the right mid and right lower lung with a clear left lung. No evidence of any pneumothorax. No evidence of any pleural effusion. The patient also has a prosthesis in the left shoulder consistent with left shoulder replacement. There is cardiomegaly. Patient was given a combination of Rocephin and and Zosyn. Supplemental oxygen and admitted to the medical floor. Also given 1 liter of lactated Ringer in the emergency department. Home medications have b een also resumed. Past medical history includes history of recurrent right lung pneumonia for which the patient was hospitalized on 11/27/2024 and discharged home on 11/30/2024. During the last hospitalization, the patient was evaluate the patient was treated with IV Zosyn and the CAT scan of the chest that was done at that time on 11/28/2024 showed reticulonodular infiltrate involving the right lung and more focal component seen in the right lower lobe and a small right-sided pleural effusion and left lung was clear. There was also calcified pleural plaques bilaterally consistent with previous asbestos exposure and hyperinflation compatible with COPD. In fact, upon comparing the current chest x-ray within earlier chest x-ray that was done during the last hospitalization, the patient's hazy opacity in the right lung has progressed and instability is worse. As such, pulmonary consultation was requested. I also noted that the culture from the sputum on 11/28/2024 was positive for Serratia marcescens. The patient was discharged home on Augmentin and the microorganism was resistant to Augmentin. In addition, it was resistant to cefepime. On a separate note, the patient has history of dysphagia and esophageal strictures and the patient has undergone previous balloon dilatation and during the last hospitalization, the patient had another EGD that showed mild gastritis and esophagitis at the proximal esophagus appeared to be within normal limits. There was no hiatal hernia. Distal esophagus appeared to be mildly inflamed. Biopsies were obtained. In fact, a previous modified barium swallow this was done June 2023 showed moderate esophageal dysmotility and a moderate-sized sliding hiatal hernia And a mild narrowing of the GE junction. The patient has been maintained on PPI taking upwards of 40 mg p.o. on a daily basis. 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 The patient is a former smoker. On today's evaluation of 12/16/2024, the patient is stable. He is on room air oxygen with a pulse ox of 93%. He was started on a combination of cefepime and Levaquin. No chest pain. No pleurisy or hemoptysis. The white cell count 11.3 with a hemoglobin 9.9. Electrolytes all within normal limits. The patient was asked to provide another sputum sample for analysis. Hemodynamically stable. A repeat chest x-ray was done today and the chest x-ray is showing persistent right lower lobe consolidation without any significant interval change. Objective - Vital Signs Vital signs: Vital Signs Temp 97.8 F 12/16/24 07:25 Pulse 73 12/16/24 11:36 Resp 16 12/16/24 11:36 BP 117/64 12/16/24 10:24 Pulse Ox 92 L 12/16/24 10:24 FiO2 Intake & Output 12/15/24 12/16/24 12/16/24 18:59 06:59 18:59 Weight 73.482 kg - Exam GENERAL EXAM: Alert, very pleasant 79-year-old male, not in acute distress. The patient is currently on 4 L of oxygen by nasal cannula HEAD: Normocephalic. EYES: Normal reaction of pupils, equal size. NOSE: Clear with pink turbinates. THROAT: No erythema or exudates. NECK: No masses, no JVD. CHEST: No chest wall deformity. LUNGS: Equal air entry with few scattered rhonchi in the right lung. CVS: S1 and S2 normal with no audible murmur, regular rhythm. ABDOMEN: No hepatosplenomegaly, normal bowel sounds, no guarding or rigidity. SPINE: No scoliosis or deformity SKIN: No rashes CENTRAL NERVOUS SYSTEM: No focal deficits, tone is normal in all 4 extremities. EXTREMITIES: There is no peripheral edema. No clubbing, no cyanosis. Peripheral pulses are intact. - Labs CBC & Chem 7: 12/16/24 06:28 12/16/24 06:28 Labs: Abnormal Lab Results - Last 24 Hours (Table) 12/15/24 12/16/24 12/16/24 Range/Units 11:19 06:28 06:28 WBC 11.37 H (4.50-10.00) X 10*3/uL RBC 3.64 L (4.40-5.60) X 10*6/uL Hgb 9.9 L (13.0-17.0) g/dL Hct 33.0 L (39.6-50.0) % MCHC 30.0 L (32.0-37.0) g/dL RDW 15.4 H (11.5-14.5) % Neutrophils # 9.67 H (1.80-7.70) X 10*3/uL Lymphocytes # 0.89 L (0.90-5.00) X 10*3/uL BUN/Creatinine Ratio 25.38 H (12.00-20.00) Ratio Calcium 8.3 L (8.7-10.3) mg/dL Ur Specific [place] 1.046 H (1.001-1.035) Urine Protein Trace H (Negative) Assessment and Plan Plan: Right-sided pneumonia, recurrent with worsening of the right lower lobe consolidation. Noted the patient was recently hospitalized from 11/27/2024 through 11/30/2024 and treated with IV antibiotics with IV Zosyn and discharged home on Augmentin. Sputum sample was positive for Serratia marcescens, resistant to both microorganisms. Chest x-ray demonstrating worsening and increasing patchy airspace opacities most prominent within the right mid and lower lung cook, and to a lesser degree on the left. Pleural plaquing noted near the diaphragm. Acute hypoxemic respiratory failure, improved and the patient is currently on room air oxygen Recurrent dysphagia with a history of esophageal strictures and Schatzki ring, most recent undergoing balloon dilation May,. Repeat EGD done On 11/29/2024 showed some distal esophageal inflammatory changes, no strictures, and the biopsy showed benign glandular mucosa with chronic and acute esophagitis. No intestinal metaplasia. Patient is still on PPIs. 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 History of hiatal hernia History of gastroesophageal reflux disease Hypertension History of hyperlipidemia History of aortic valve stenosis status post transcatheter aortic valve replacement History of left shoulder reverse replacement Former tobacco smoker Plan: Titrate oxygen flow to maintain saturation above 90%, oxygenation is improved and the patient is currently on room air oxygen Obtain another sputum Gram stain and culture IV cefepime/Levaquin combination based on previous sensitivities to Serratia marcescens, culture obtained on 11/28/2024 Repeat chest x-ray shows stable right lower lobe consolidation Monitor chest x-ray findings and consider bronchoscopy and biopsy if no clearing of the right lower lobe pulmonary infiltrate/consolidation. Continue on omeprazole Resume home medications I will continue to follow. Time with Patient: Greater than 30
--- NOTE | 2024-12-16 15:53 | P.PN ---
Subjective Progress Note Date: 12/16/24 Principal diagnosis: Reason for follow-up is pneumonia Patient is a 79-year-old male with a past medical history significant for hypertension hyperlipidemia reflux heart failure osteoarthritis, presented to the hospital for evaluation of difficulty breathing and fever chest x-ray was worsening right lung airspace disease concerning for pneumonia. 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 Patient white count is 11.37, creatinine 0.8 UA has been negative Objective - Vital Signs Vital signs: Vital Signs Temp 97.8 F 12/16/24 07:25 Pulse 73 12/16/24 11:36 Resp 16 12/16/24 11:36 BP 117/64 12/16/24 10:24 Pulse Ox 92 L 12/16/24 10:24 FiO2 Intake & Output 12/15/24 12/16/24 12/16/24 18:59 06:59 18:59 Weight 73.482 kg - Labs CBC & Chem 7: 12/16/24 06:28 12/16/24 06:28 Labs: Abnormal Lab Results - Last 24 Hours (Table) 12/16/24 12/16/24 Range/Units 06:28 06:28 WBC 11.37 H (4.50-10.00) X 10*3/uL RBC 3.64 L (4.40-5.60) X 10*6/uL Hgb 9.9 L (13.0-17.0) g/dL Hct 33.0 L (39.6-50.0) % MCHC 30.0 L (32.0-37.0) g/dL RDW 15.4 H (11.5-14.5) % Neutrophils # 9.67 H (1.80-7.70) X 10*3/uL Lymphocytes # 0.89 L (0.90-5.00) X 10*3/uL BUN/Creatinine Ratio 25.38 H (12.00-20.00) Ratio Calcium 8.3 L (8.7-10.3) mg/dL Assessment and Plan (1) Pneumonia Current Visit: Yes Status: Acute Code(s): J18.9 - PNEUMONIA, UNSPECIFIED ORGANISM SNOMED Code(s): 973389899 Plan: 1patient presented to hospital with increasing shortness of breath cough did have a fever with evidence of worsening right lower lobe pneumonia question of community-acquired versus aspiration pneumonia 2we will try to obtain sputum for Gram stain culture 3antibiotic has been switched over to Levaquin and cefepime by pulmonary continue while waiting for the culture to finalize at the bedside question answered Dictation was produced using [employer] dictation software. please excuse any grammatical, word or spelling errors. Time with Patient: Less than 30
--- NOTE | 2024-12-16 18:08 | US ---
EXAMINATION TYPE: US venous doppler duplex UE RT DATE OF EXAM: 12/16/2024 COMPARISON: NONE CLINICAL INDICATION: Male, 79 years old with history of edema in right arm; swollen right arm, patien t recently dislocated his right shoulder and manipulated it back in, no h/o dvt TECHNIQUE: Grayscale, color Doppler and spectral Doppler imaging of the upper extremity. SIDE PERFORMED: Right VESSELS IMAGED: IJV Subclavian Vein Axilla Vein Brachial Vein(s) Radial Paired Veins Ulnar Paired Veins Cephalic Vein* Basilic Vein* (*superficial vessels) FINDINGS: Right Arm: Negative for DVT Grayscale, color doppler, spectral doppler imaging performed of the deep veins of the upper extremiti es. IMPRESSION: No evidence for DVT. [facility], , 12/16/2024 6:06 PM
--- NOTE | 2024-12-17 03:57 | PN ---
PROGRESS NOTE DATE OF SERVICE: 12/16/2024 SUBJECTIVE: This is an 79-year-old gentleman, who was admitted with a right-sided aspiration pneumonia, recurrent, this has been closely monitored at this time. The patient is on broad-spectrum IV antibiotics. The patient had a recent worsening. Sputum culture at that time showed Gretchen as well as Serratia marcescens, rather resistant. The patient is started on cefepime at this time. PAST MEDICAL HISTORY: Reviewed. REVIEW OF SYSTEMS: 14-point review is negative. CURRENT MEDICATIONS: Reviewed. PHYSICAL EXAMINATION: VITAL SIGNS: Pulse is 78, blood pressure 103/85, respirations 18. HEENT: Conjunctivae normal. NECK: No jugular venous distention. CARDIOVASCULAR: S1 and S2. RESPIRATIONS: Scattered rhonchi. ABDOMEN: Soft and nondistended. LABORATORY DATA: WBC 11.7. ASSESSMENT: 1. Right-sided aspiration pneumonia, recurrent with Serratia marcescens, possibly resistant. 2. Rule out aspiration. 3. Congestive heart failure history. 4. Hypertension. 5. Hyperlipidemia. 6. History of transcatheter aortic valve replacement. 7. Multiple complex medical issues. RECOMMENDATIONS: I recommend to continue current management and treatment. Otherwise, at this time I would recommend to continue with cefepime, Infectious Disease, Pulmonary consultations. Guarded prognosis because of multiple complex medical issues and further recommendations to follow. MMODL / IJN: [id number] /
--- NOTE | 2024-12-17 11:53 | FL ---
Exam Date: 12/17/2024 11:47 AM. Modified barium swallow for dysphagia. Consistencies administered: Various consistency of barium. No images were sent to PACS. Please see speech pathology report. DAP: 16.4 mGym2 Gycm2 [facility], , 12/17/2024 11:50 AM
--- NOTE | 2024-12-17 14:00 | P.PN ---
Subjective Progress Note Date: 12/17/24 This is a 79-year-old female patient presented emergency department with worsening shortness of breath. The patient reported fever and worsening shortness of breath. No chest pain. No palpitations. No abdominal pain. No nausea or vomiting. She has developed some increased swelling in lower extremities bilaterally. In the emergency department, the patient was found to be febrile with a Tmax of one 1.6. Blood pressure was soft 102/60 and the patient was placed on oxygen 4 L with a pulse ox of 97%. The white cell count was at 8.5 with a hemoglobin 11.9 and a platelet count of 56. BUN 33 with a creatinine of 0.8. Sodium was at 139 and glucose was at 133. Normal coagulation profile. Normal LFTs. BUN was 33 with a creatinine of 0.8 and a UA was also within normal limits. Chest x-ray was done and it showed consolidation in the right mid and right lower lung with a clear left lung. No evidence of any pneumothorax. No evidence of any pleural effusion. The patient also has a prosthesis in the left shoulder consistent with left shoulder replacement. There is cardiomegaly. Patient was given a combination of Rocephin and and Zosyn. Supplemental oxygen and admitted to the medical floor. Also given 1 liter of lactated Ringer in the emergency department. Home medications have be en also resumed. Past medical history includes history of recurrent right lung pneumonia for which the patient was hospitalized on 11/27/2024 and discharged home on 11/30/2024. During the last hospitalization, the patient was evaluate the patient was treated with IV Zosyn and the CAT scan of the chest that was done at that time on 11/28/2024 showed reticulonodular infiltrate involving the right lung and more focal component seen in the right lower lobe and a small right-sided pleural effusion and left lung was clear. There was also calcified pleural plaques bilaterally consistent with previous asbestos exposure and hyperinflation compatible with COPD. In fact, upon comparing the current chest x-ray within earlier chest x-ray that was done during the last hospitalization, the patient's hazy opacity in the right lung has progressed and instability is worse. As such, pulmonary consultation was requested. I also noted that the culture from the sputum on 11/28/2024 was positive for Serratia marcescens. The patient was discharged home on Augmentin and the microorganism was resistant to Augmentin. In addition, it was resistant to cefepime. On a separate note, the patient has history of dysphagia and esophageal strictures and the patient has undergone previous balloon dilatation and during the last hospitalization, the patient had another EGD that showed mild gastritis and esophagitis at the proximal esophagus appeared to be within normal limits. There was no hiatal hernia. Distal esophagus appeared to be mildly inflamed. Biopsies were obtained. In fact, a previous modified barium swallow this was done June 2023 showed moderate esophageal dysmotility and a moderate-sized sliding hiatal hernia And a mild narrowing of the GE junction. The patient has been maintained on PPI taking upwards of 40 mg p.o. on a daily basis. 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 The patient is a former smoker. On today's evaluation of 12/16/2024, the patient is stable. He is on room air oxygen with a pulse ox of 93%. He was started on a combination of cefepime and Levaquin. No chest pain. No pleurisy or hemoptysis. The white cell count 11.3 with a hemoglobin 9.9. Electrolytes all within normal limits. The patient was asked to provide another sputum sample for analysis. Hemodynamically stable. A repeat chest x-ray was done today and the chest x-ray is showing persistent right lower lobe consolidation without any significant interval change. The patient is seen today December 17, 2024 in follow-up on the regular medical floor. He is currently sitting up in a chair at the bedside. Awake and alert in no acute distress. Maintaining good O2 saturations in the 90s on room air. He is awaiting a swallow evaluation. Doppler of the right upper extremity revealed no evidence of DVT. Continued on DuoNeb inhalations. Remains on cefepime and Levaquin. Heparin for DVT prophylaxis. Objective - Vital Signs Vital signs: Vital Signs Temp 98.6 F 12/17/24 07:53 Pulse 88 12/17/24 12:38 Resp 18 12/17/24 09:15 BP 158/72 12/17/24 07:53 Pulse Ox 94 L 12/17/24 09:18 FiO2 Intake & Output 05/18/25 05/19/25 05/19/25 18:59 06:59 18:59 Intake Total 0 Balance 0 Weight 73.482 kg 74.5 kg Intake: Oral 0 Other: Voiding Method Toilet Toilet # Voids 1 3 # Bowel Movements 0 1 - Exam GENERAL EXAM: Alert, active, 79-year-old male, on room air oxygen, comfortable in no apparent distress. HEAD: Normocephalic. EYES: Normal reaction of pupils, equal size. NOSE: Clear with pink turbinates. THROAT: No erythema or exudates. NECK: No masses, no JVD. CHEST: No chest wall deformity. LUNGS: Equal air entry with few scattered rhonchi. CVS: S1 and S2 normal with no audible murmur, regular rhythm. ABDOMEN: No hepatosplenomegaly, normal bowel sounds, no guarding or rigidity. SPINE: No scoliosis or deformity SKIN: No rashes CENTRAL NERVOUS SYSTEM: No focal deficits, tone is normal in all 4 extremities. EXTREMITIES: There is no peripheral edema. No clubbing, no cyanosis. Peripheral pulses are intact. - Labs CBC & Chem 7: 12/16/24 06:28 12/16/24 06:28 Assessment and Plan Assessment: Right-sided pneumonia, recurrent with worsening of the right lower lobe consolidation. Noted the patient was recently hospitalized from 11/27/2024 through 11/30/2024 and treated with IV antibiotics with IV Zosyn and discharged home on Augmentin. Sputum sample was positive for Serratia marcescens, resistant to both microorganisms. Chest x-ray demonstrating worsening and increasing patchy airspace opacities most prominent within the right mid and lower lung cook, and to a lesser degree on the left. Pleural plaquing noted near the diaphragm. Follow-up chest x-ray from 12/16/2024 revealed no acute pulmonary process Acute hypoxemic respiratory failure, improved and the patient is currently on room air oxygen Recurrent dysphagia with a history of esophageal strictures and Schatzki ring, most recent undergoing balloon dilation May,. Repeat EGD done On 11/29/2024 showed some distal esophageal inflammatory changes, no strictures, and the biopsy showed benign glandular mucosa with chronic and acute esophagitis. No intestinal metaplasia. Patient is still on PPIs. 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 History of hiatal hernia History of gastroesophageal reflux disease Hypertension History of hyperlipidemia History of aortic valve stenosis status post transcatheter aortic valve replacement History of left shoulder reverse replacement Former tobacco smoker Plan: The patient was seen and evaluated Doppler of the right upper extremity reviewed Negative for DVT Medications reviewed Awaiting swallow evaluation Continued on DuoNeb and elations Continue on cefepime and Levaquin Heparin for DVT prophylaxis We will continue to follow I have personally seen and examined the patient, performed the documentation and the assessment and plan as written. Number of minutes spent on the visit: 10 Dictation was produced using [email or web address] dictation software. Please excuse any grammatical, word or spelling errors.
[2024-12-17] MEDS: CEFEPIME 2 GM in SODIUM CHLORIDE 0.9% 100 ML IVPB SCH (16:15)
--- NOTE | 2024-12-17 17:13 | P.PN ---
Subjective Progress Note Date: 12/17/24 Principal diagnosis: Reason for follow-up is pneumonia Patient is a 79-year-old male with a past medical history significant for hypertension hyperlipidemia reflux heart failure osteoarthritis, presented to the hospital for evaluation of difficulty breathing and fever chest x-ray was worsening right lung airspace disease concerning for pneumonia. On today's evaluation that is 12/17/2024, the patient continues to be afebrile, the patient is on room air and breathing comfortably, the Pt denies having any chest pain cough decreased intensity but not bringing up any sputum, the patient denies having any abdominal pain no vomiting or any diarrhea. Patient did not have any lab draw today blood sputum cultures currently pending Objective - Vital Signs Vital signs: Vital Signs Temp 98.6 F 12/17/24 07:53 Pulse 80 12/17/24 09:25 Resp 18 12/17/24 09:15 BP 158/72 12/17/24 07:53 Pulse Ox 94 L 12/17/24 09:18 FiO2 Intake & Output 12/16/24 12/17/24 12/17/24 18:59 06:59 18:59 Intake Total 0 Balance 0 Weight 73.482 kg 74.5 kg Intake: Oral 0 Other: Voiding Method Toilet Toilet # Voids 1 3 # Bowel Movements 0 1 - Exam GENERAL DESCRIPTION: An elderly male lying in bed in no distress RESPIRATORY SYSTEM: Unlabored breathing , decreased breath sounds at bases HEART: S1 S2 regular rate and rhythm , ABDOMEN: Soft , no tenderness EXTREMITIES: No edema feet - Labs CBC & Chem 7: 12/16/24 06:28 12/16/24 06:28 Assessment and Plan (1) Pneumonia Current Visit: Yes Status: Acute Code(s): J18.9 - PNEUMONIA, UNSPECIFIED ORGANISM SNOMED Code(s): 377182297 Plan: 1patient presented to hospital with increasing shortness of breath cough did have a fever with evidence of worsening right lower lobe pneumonia question of community-acquired versus aspiration pneumonia 2blood and sputum cultures obtained results are currently pending 3patient to continue Levaquin and cefepime while waiting for the culture to finalize to determine discharge antibiotics at the bedside question answered Dictation was produced using [employer] dictation software. please excuse any grammatical, word or spelling errors. Time with Patient: Less than 30
--- NOTE | 2024-12-17 17:18 | PN ---
PROGRESS NOTE DATE OF SERVICE: 12/17/2024 SUBJECTIVE: This is an 79-year-old gentleman who was admitted with right-sided aspiration pneumonia, which is recurrent Serratia marcescens, being closely monitored. No chest pain. No palpitation. His swallow study was done with barium swallow, final report is not available. OBJECTIVE: VITAL SIGNS: Pulse 72, blood pressure 110/60, and respirations 18. CHEST: Clear to auscultation. CARDIOVASCULAR: S1 and S2. ABDOMEN: Soft. LABORATORY DATA: Noted. Cultures are negative so far. ASSESSMENT: 1. Right-sided aspiration pneumonia, recurrent with Serratia marcescens, possibly resistant. 2. Rule out aspiration. 3. Congestive heart failure history. 4. Hypertension. 5. Hyperlipidemia. 6. History of transcatheter aortic valve replacement. 7. Multiple complex medical issues. RECOMMENDATIONS: I recommend to continue current management and symptomatic treatment. Continue with cefepime. Continue the rest of medications. I would recommend repeat labs. Closely follow with multiple consultants. Await a barium swallow study. Further recommendations to follow. MMODL / IJN: [id number] /
[2024-12-17] MEDS: HYDROmorphone 0.5 MG/0.5 ML SYRINGE IVP STA (20:30)
[2024-12-18 07:59] VITALS: RESP 18; TEMP 98.2
[2024-12-18 08:04] LABS: Basophils # (A) 0.03 X 10*3/uL (0.00-0.10); Basophils % (A) 0.4 %; Eosinophils # (A) 0.27 X 10*3/uL (0.04-0.35); HCT 36.2 % (39.6-50.0); Lymphocytes # (A) 1.11 X 10*3/uL (0.90-5.00); Lymphocytes % (A) 16.3 %; MCH 27.4 pg (27.0-32.0); MCHC 30.4 g/dL (32.0-37.0); Monocytes # (A) 0.63 X 10*3/uL (0.20-1.00); Monocytes % (A) 9.3 %; NRBC Per 100 WBC 0 X 10*3/uL (0.00-0.01); Neutrophils # (A) 4.73 X 10*3/uL (1.80-7.70); Neutrophils % (A) 69.6 %; Platelet Count 251 X 10*3/uL (140-440); RBC 4.02 X 10*6/uL (4.40-5.60); RDW 14.9 % (11.5-14.5)
[2024-12-18 08:21] LABS: Blood Urea Nitrogen 17.6 mg/dL (9.0-27.0); Carbon Dioxide 23.1 mmol/L (21.6-31.8); Chloride 103 mmol/L (96-109); Glucose 150 mg/dL (70-110); Potassium 4.7 mmol/L (3.5-5.5); Sodium 138 mmol/L (135-145)
--- NOTE | 2024-12-18 13:43 | CDI ---
Documentation Clarification Form Date: 12/18/2024 12:20:00 PM From: Mitzi Jensen RN, CCDS Phone: [phone] Admit Date: 12/15/2024 01:09:00 PM Patient Name: Armando Sung Visit Number: [id number] Discharge Date: ATTENTION: The Clinical Documentation Specialists (CDI) and [facility] Coding Staff appreciate your assistance in clarifying documentation. Please respond to the clarification below the line at the bottom and electronically sign. The CDI & [facility] Coding staff will review the response and follow-up if needed. Please note: Queries are made part of the Legal Health Record. If you have any questions, please contact the author of this message via ITS. DoctorChetan Monson Acute hypoxic respiratory failure is documented in the Pulmonary consult and subsequent progress notes which may lack sufficient clinical evidence/support in the medical record. Additional clarification is requested. History/Risk Factors: Heart failure, dysphagia, esophageal strictures, COPD, asbestos exposure Clinical Indicators: 79-year-old female patient presented with worsening shortness of breath. She developed some increased swelling in lower extremities bilaterally. 517 VS: (09:25) 107/60 72 24 101.6 84% RA. (11:23 86/56 75 18 93 % 4/L NC 12/15 Labs: WBC 8.65, HGB 11.9, Plt, 258 12/15 CXR: Significant worsening in the partially consolidative opacity in the right mid and lower lung zone. The left lung remains clear. No pneumothorax or large pleural effusion 12/15 ED assessment: General: Patient is nontoxic and well-hydrated and is in mild distress. Pulmonary: Patient has crackles throughout his right lung 12/15 Pulmonary consult: Reports congestion, cough with sputum, dyspnea. Denies wheezing, not in acute distress. The patient is currently on 4 L of oxygen by nasal cannula. Lungs: Equal air entry with scattered rhonchi in the right lung. Treatment: Monitor O2 sat's (titrate) Albuterol/Ipratropium 0.5 Mg-Mg/3 Ml Soln RT-1QID Maxipime 2 GM IVPB Q8 HRS 12/15- Levaquin 750 MG PO HS 12/15-12/18 Please clarify if acute hypoxic respiratory failure is a valid diagnosis? [ ] No, Acute Hypoxic Respiratory Failure is ruled out [ ] Yes, Acute Hypoxic Respiratory Failure is present as evidence by (additional clinical support): [ x ] Hypoxemia with low O2 sat's [ ] Other (please specify diagnosis) [ ] Unable to determine (Template Last Revised: December 2023) MTDD
[2024-12-18] MEDS ORDERED: CEFEPIME 2 GM in SODIUM CHLORIDE 0.9% 100 ML IVPB SCH ×2 (14:00→19:00)
[2024-12-18 14:14] VITALS: BP 145/69; PULSE 62
--- NOTE | 2024-12-18 14:39 | P.PN ---
Subjective Progress Note Date: 12/18/24 This is a 79-year-old female patient presented emergency department with worsening shortness of breath. The patient reported fever and worsening shortness of breath. No chest pain. No palpitations. No abdominal pain. No nausea or vomiting. She has developed some increased swelling in lower extremities bilaterally. In the emergency department, the patient was found to be febrile with a Tmax of one 1.6. Blood pressure was soft 102/60 and the patient was placed on oxygen 4 L with a pulse ox of 97%. The white cell count was at 8.5 with a hemoglobin 11.9 and a platelet count of 56. BUN 33 with a creatinine of 0.8. Sodium was at 139 and glucose was at 133. Normal coagulation profile. Normal LFTs. BUN was 33 with a creatinine of 0.8 and a UA was also within normal limits. Chest x-ray was done and it showed consolidation in the right mid and right lower lung with a clear left lung. No evidence of any pneumothorax. No evidence of any pleural effusion. The patient also has a prosthesis in the left shoulder consistent with left shoulder replacement. There is cardiomegaly. Patient was given a combination of Rocephin and and Zosyn. Supplemental oxygen and admitted to the medical floor. Also given 1 liter of lactated Ringer in the emergency department. Home medications have be en also resumed. Past medical history includes history of recurrent right lung pneumonia for which the patient was hospitalized on 11/27/2024 and discharged home on 11/30/2024. During the last hospitalization, the patient was evaluate the patient was treated with IV Zosyn and the CAT scan of the chest that was done at that time on 11/28/2024 showed reticulonodular infiltrate involving the right lung and more focal component seen in the right lower lobe and a small right-sided pleural effusion and left lung was clear. There was also calcified pleural plaques bilaterally consistent with previous asbestos exposure and hyperinflation compatible with COPD. In fact, upon comparing the current chest x-ray within earlier chest x-ray that was done during the last hospitalization, the patient's hazy opacity in the right lung has progressed and instability is worse. As such, pulmonary consultation was requested. I also noted that the culture from the sputum on 11/28/2024 was positive for Serratia marcescens. The patient was discharged home on Augmentin and the microorganism was resistant to Augmentin. In addition, it was resistant to cefepime. On a separate note, the patient has history of dysphagia and esophageal strictures and the patient has undergone previous balloon dilatation and during the last hospitalization, the patient had another EGD that showed mild gastritis and esophagitis at the proximal esophagus appeared to be within normal limits. There was no hiatal hernia. Distal esophagus appeared to be mildly inflamed. Biopsies were obtained. In fact, a previous modified barium swallow this was done June 2023 showed moderate esophageal dysmotility and a moderate-sized sliding hiatal hernia And a mild narrowing of the GE junction. The patient has been maintained on PPI taking upwards of 40 mg p.o. on a daily basis. 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 The patient is a former smoker. On today's evaluation of 12/16/2024, the patient is stable. He is on room air oxygen with a pulse ox of 93%. He was started on a combination of cefepime and Levaquin. No chest pain. No pleurisy or hemoptysis. The white cell count 11.3 with a hemoglobin 9.9. Electrolytes all within normal limits. The patient was asked to provide another sputum sample for analysis. Hemodynamically stable. A repeat chest x-ray was done today and the chest x-ray is showing persistent right lower lobe consolidation without any significant interval change. The patient is seen today December 17, 2024 in follow-up on the regular medical floor. He is currently sitting up in a chair at the bedside. Awake and alert in no acute distress. Maintaining good O2 saturations in the 90s on room air. He is awaiting a swallow evaluation. Doppler of the right upper extremity revealed no evidence of DVT. Continued on DuoNeb inhalations. Remains on cefepime and Levaquin. Heparin for DVT prophylaxis. The patient is seen today December 18, 2024 in follow-up on the regular medical floor. He is currently awake and alert in no acute distress. Continues to maintain good O2 saturations in the 90s on room air oxygen. He is sitting up in a chair at the bedside. He did undergo barium swallow yesterday. Speech therapy is recommending a regular diet with thin liquids. No evidence of aspiration. He has noted to have Zenker's diverticulum. White count 6.8. Hemoglobin 11.0. Platelets 251. Sodium 138. Potassium 4.7. Bicarb 23. BUN 18. Creatinine 1.0. Glucose 150. He is continued on DuoNeb inhalations. Remains on cefepime. Heparin for DVT prophylaxis. Protonix for GI prophylaxis. Objective - Vital Signs Vital signs: Vital Signs Temp 98.2 F 12/18/24 14:00 Pulse 62 12/18/24 14:00 Resp 18 12/18/24 14:00 BP 145/69 12/18/24 14:00 Pulse Ox 93 L 12/18/24 14:00 FiO2 Intake & Output 12/17/24 12/18/24 12/18/24 18:59 06:59 18:59 Weight 74.5 kg Other: Voiding Method Toilet Toilet Toilet # Voids 3 2 # Bowel Movements 0 - Exam GENERAL EXAM: Alert, pleasant 79-year-old male, up in a chair, on room air oxygen, comfortable in no apparent distress. HEAD: Normocephalic. EYES: Normal reaction of pupils, equal size. NOSE: Clear with pink turbinates. THROAT: No erythema or exudates. NECK: No masses, no JVD. CHEST: No chest wall deformity. LUNGS: Equal air entry with few scattered rhonchi. CVS: S1 and S2 normal with no audible murmur, regular rhythm. ABDOMEN: No hepatosplenomegaly, normal bowel sounds, no guarding or rigidity. SPINE: No scoliosis or deformity SKIN: No rashes CENTRAL NERVOUS SYSTEM: No focal deficits, tone is normal in all 4 extremities. EXTREMITIES: There is no peripheral edema. No clubbing, no cyanosis. Peripheral pulses are intact. - Labs CBC & Chem 7: 12/18/24 02:39 12/18/24 02:39 Labs: Abnormal Lab Results - Last 24 Hours (Table) 12/18/24 12/18/24 Range/Units 02:39 02:39 RBC 4.02 L (4.40-5.60) X 10*6/uL Hgb 11.0 L (13.0-17.0) g/dL Hct 36.2 L (39.6-50.0) % MCHC 30.4 L (32.0-37.0) g/dL RDW 14.9 H (11.5-14.5) % Glucose 150 H (70-110) mg/dL Assessment and Plan Assessment: Right-sided pneumonia, recurrent with worsening of the right lower lobe consolidation. Noted the patient was recently hospitalized from 11/27/2024 through 11/30/2024 and treated with IV antibiotics with IV Zosyn and discharged home on Augmentin. Sputum sample was positive for Serratia marcescens, resistant to both microorganisms. Chest x-ray demonstrating worsening and increasing patchy airspace opacities most prominent within the right mid and lower lung cook, and to a lesser degree on the left. Pleural plaquing noted n ear the diaphragm. Follow-up chest x-ray from 12/16/2024 revealed no acute pulmonary process Acute hypoxemic respiratory failure, improved and the patient is currently on room air oxygen Recurrent dysphagia with a history of esophageal strictures and Schatzki ring, most recent undergoing balloon dilation May,. Repeat EGD done On 11/29/2024 showed some distal esophageal inflammatory changes, no strictures, and the biopsy showed benign glandular mucosa with chronic and acute esophagitis. No intestinal metaplasia. Patient is still on PPIs. Barium swallow did not reveal evidence of aspiration. Recommended a regular diet. 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 History of hiatal hernia History of gastroesophageal reflux disease Hypertension History of hyperlipidemia History of aortic valve stenosis status post transcatheter aortic valve replacement History of left shoulder reverse replacement Former tobacco smoker Plan: The patient was seen and evaluated Barium swallow results reviewed Labs and medications reviewed Remains stable and on room air oxygen Continued on DuoNeb inhaations Antibiotics per ID service Heparin for DVT prophylaxis Plan is to return home at discharge I have personally seen and examined the patient, performed the documentation and the assessment and plan as written. Number of minutes spent on the visit: 10 Dictation was produced using [employer] dictation software. Please excuse any grammatical, word or spelling errors.
--- NOTE | 2024-12-18 15:05 | P.PN ---
Subjective Progress Note Date: 12/18/24 Principal diagnosis: Reason for follow-up is pneumonia Patient is a 79-year-old male with a past medical history significant for hypertension hyperlipidemia reflux heart failure osteoarthritis, presented to the hospital for evaluation of difficulty breathing and fever chest x-ray was worsening right lung airspace disease concerning for pneumonia. On today's evaluation that is 12/18/2024, Patient is afebrile patient is currently on room air and denies having any shortness of breath, the patient denies any chest pain and cough is decreased in intensity, the patient denies any nausea vomiting did not have any abdominal pain and no diarrhea. Patient white count normalized to 6.80, creatinine is 1.0 sputum cultures currently pending Objective - Vital Signs Vital signs: Vital Signs Temp 98.2 F 12/18/24 14:00 Pulse 62 12/18/24 14:00 Resp 18 12/18/24 14:00 BP 145/69 12/18/24 14:00 Pulse Ox 93 L 12/18/24 14:00 FiO2 Intake & Output 12/17/24 12/18/24 12/18/24 18:59 06:59 18:59 Weight 74.5 kg Other: Voiding Method Toilet Toilet Toilet # Voids 3 2 # Bowel Movements 0 - Exam GENERAL DESCRIPTION: An elderly male lying in bed in no distress RESPIRATORY SYSTEM: Unlabored breathing , decreased breath sounds at bases HEART: S1 S2 regular rate and rhythm , ABDOMEN: Soft , no tenderness EXTREMITIES: No edema feet - Labs CBC & Chem 7: 12/18/24 02:39 12/18/24 02:39 Labs: Abnormal Lab Results - Last 24 Hours (Table) 12/18/24 12/18/24 Range/Units 02:39 02:39 RBC 4.02 L (4.40-5.60) X 10*6/uL Hgb 11.0 L (13.0-17.0) g/dL Hct 36.2 L (39.6-50.0) % MCHC 30.4 L (32.0-37.0) g/dL RDW 14.9 H (11.5-14.5) % Glucose 150 H (70-110) mg/dL Assessment and Plan (1) Pneumonia Current Visit: Yes Status: Acute Code(s): J18.9 - PNEUMONIA, UNSPECIFIED ORGANISM SNOMED Code(s): 518474629 Plan: 1patient presented to hospital with increasing shortness of breath cough did have a fever with evidence of worsening right lower lobe pneumonia question of community-acquired versus aspiration pneumonia 2blood and sputum cultures obtained results are currently pending 3patient has shown some clinical improvement, will treat Levaquin and cefepime while waiting for the culture to finalize to determine discharge antibiotics Discussed with CAR HOSTLER for admitting team Dictation was produced using [employer] dictation software. please excuse any gram matical, word or spelling errors. Time with Patient: Less than 30
== END 2024-12-18 16:23 | disposition home or self-care (01) | DRG 179 ==
LOC: EC 09:23 → 4SSUR 13:09
PROVIDERS: ADMIT Hospitalist; ATTEND Hospitalist
DX: J69.0 Pneumonitis due to inhalation of food and vomit (principal); I50.9 Heart failure, unspecified; I11.0 Hypertensive heart disease with heart failure; R13.10 Dysphagia, unspecified; J44.9 Chronic obstructive pulmonary disease, unspecified; Z95.2 Presence of prosthetic heart valve; G25.81 Restless legs syndrome; J61 Pneumoconiosis due to asbestos and other mineral fibers; K22.5 Diverticulum of esophagus, acquired; R09.02 Hypoxemia; G89.29 Other chronic pain; M54.9 Dorsalgia, unspecified; K22.4 Dyskinesia of esophagus; K29.70 Gastritis, unspecified, without bleeding; M19.90 Unspecified osteoarthritis, unspecified site; E78.5 Hyperlipidemia, unspecified; Z77.090 Contact with and (suspected) exposure to asbestos; Z79.1 Long term (current) use of non-steroidal anti-inflammatories (NSAID); Z79.82 Long term (current) use of aspirin; Z79.899 Other long term (current) drug therapy; Z82.49 Family history of ischemic heart disease and other diseases of the circulatory system; Z87.891 Personal history of nicotine dependence; Z96.612 Presence of left artificial shoulder joint; Z91.81 History of falling; Z87.81 Personal history of (healed) traumatic fracture
CPT/HCPCS: 36415; 71046; 74230; 80048; 80053; 81003; 83605; 85025; 85610; 85730; 87040; 87070; 87205; 87449; 93005; 94640; 94760; 96361; 96365; 96366; 96367; 96372; 99285

== ENCOUNTER 2025-01-01 18:25 | Inpatient (IN) | payer MEDICARE ==
--- NOTE | 2025-01-01 19:11 | ED ---
SOB HPI - General Chief Complaint: Shortness of Breath Stated Complaint: SOB Time Seen by Provider: 01/01/25 18:42 Source: patient, family, RN notes reviewed Mode of arrival: wheelchair Limitations: no limitations - History of Present Illness Initial Comments: This is an 79-year-old male with history including heart failure, hypertension, hyperlipidemia and recurrent pneumonia presenting with for dyspnea x 1 day. states patient was working earlier today, behaving normally when he began experiencing a cough, difficulty breathing and began experiencing altered level of consciousness. states that the symptoms are similar to prior episodes of pneumonia with patient recently being treated for antibiotic resistant bacterial pneumonia, requiring hospitalization last month. States after resolution, he was cleared for left shoulder surgery which occurred last week. states patient was doing well following surgery until earlier today. also notes patient has been having bilateral lower extremity edema. MD Complaint: shortness of breath, cough Onset/Timin -: days(s) Known History Of: recurrent pneumonia Context: other (Recent surgery, recent pneumonia) Associated Symptoms: cough, sputum production - Related Data Home Medications Medication Instructions Recorded Confirmed Ezetimibe [Zetia] 10 mg PO DAILY 11/02/21 01/01/25 Gabapentin [Neurontin] 400 mg PO QID 11/02/21 01/01/25 HYDROcodone/APAP 10-325MG [[place]ston 1 tab PO Q6H PRN 11/02/21 01/01/25 10-325] Lansoprazole 30 mg PO DAILY 11/02/21 01/01/25 Meloxicam [Mobic] 15 mg PO DAILY 11/02/21 01/01/25 Metoprolol Tartrate [Lopressor] 25 mg PO BID 11/02/21 01/01/25 lisinopriL [Zestril] 20 mg PO DAILY 11/02/21 01/01/25 modafiniL [Provigil] 200 mg PO DAILY 11/02/21 01/01/25 rOPINIRole HCL [Requip] 4 mg PO BID 11/02/21 01/01/25 Rosuvastatin [Crestor] 10 mg PO DAILY 10/17/23 01/01/25 Pramipexole [Mirapex] 0.5 mg PO HS 11/26/24 01/01/25 Albuterol Sulfate [Albuterol 1 puff INHALATION RT-Q4H PRN 12/15/24 01/01/25 Sulfate Hfa] Aspirin 81 mg PO BID 01/01/25 01/01/25 Unknown Inhaler 1 dose INHALATION DIRECTED 01/01/25 01/01/25 Previous Rx's Medication Instructions Recorded Omeprazole 40 mg PO DAILY #30 cap 11/30/24 Allergies Allergy/AdvReac Type Severity Reaction Status Date / Time No Known Allergies Allergy Verified 01/01/25 20:40 Review of Systems ROS Statement: Those systems with pertinent positive or pertinent negative responses have been documented in the HPI. ROS Other: All systems not noted in ROS Statement are negative. Past Medical History Past Medical History: Heart Failure, GERD/Reflux, Hyperlipidemia, Hypertension, Musculoskeletal Disorder, Osteoarthritis (OA) Additional Past Medical History / Comment(s): esophageal constriction in the past, aortic valve stenosis, RLS, past hx. of compression fx. in back after a fall, chronic back pain, dry cough - has seen Dr. 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, Left Shoulder reverse replacement Past Anesthesia/Blood Transfusion Reactions: No Reported Reaction Past Psychological History: No Psychological Hx Reported Smoking Status: Former smoker Past Alcohol Use History: Occasional Past Drug Use History: None Reported - Past Family History Mother Family Medical History: No Reported History, Hypertension Father Family Medical History: No Reported History, Hypertension General Exam Limitations: no limitations General appearance: in no apparent distress, lethargic Head exam: Present: atraumatic, normocephalic, normal inspection Eye exam: Present: normal appearance, PERRL, EOMI. Absent: scleral icterus, conjunctival injection, periorbital swelling ENT exam: Present: normal exam, mucous membranes moist Neck exam: Present: normal inspection. Absent: tenderness, meningismus, lymphadenopathy Respiratory exam: Present: rhonchi (Right lower lobe rhonchi), decreased breath sounds (Diminished lung sounds in left lower lobe). Absent: respiratory distress, wheezes, rales, stridor, accessory muscle use, prolonged expiratory Cardiovascular Exam: Present: regular rate, normal rhythm, normal heart sounds. Absent: systolic murmur, diastolic murmur, rubs, gallop, clicks GI/Abdominal exam: Present: soft, normal bowel sounds. Absent: distended, tenderness, guarding, rebound, rigid Extremities exam: Present: full ROM, normal capillary refill, pedal edema (Positive BLE pitting edema to knees). Absent: tenderness, joint swelling, calf tenderness Back exam: Present: normal inspection Neurological exam: Present: altered (Alert to verbal. Eyes closed, mouth agape), oriented X3, CN II-XII intact. Absent: alert Psychiatric exam: Present: normal affect, normal mood Skin exam: Present: warm, dry, intact, normal color. Absent: rash Course Vital Signs 01/01/25 01/01/25 01/01/25 18:27 19:30 19:45 Temperature 99.5 F Pulse Rate 59 L 68 67 Respiratory 18 16 16 Rate Blood Pressure 88/49 80/39 78/58 O2 Sat by Pulse 99 98 97 Oximetry 01/01/25 01/01/25 01/01/25 20:00 20:15 20:30 Temperature Pulse Rate 69 65 68 Respiratory 16 18 18 Rate Blood Pressure 94/63 87/51 104/50 O2 Sat by Pulse 95 95 95 Oximetry 01/01/25 01/01/25 01/01/25 21:00 21:29 21:30 Temperature 98.9 F Pulse Rate 67 67 Respiratory 18 18 16 Rate Blood Pressure 97/57 90/49 O2 Sat by Pulse 95 94 L Oximetry 01/01/25 01/01/25 01/01/25 22:00 22:15 22:30 Temperature Pulse Rate 64 64 65 Respiratory 16 16 16 Rate Blood Pressure 77/41 109/48 109/49 O2 Sat by Pulse 95 95 95 Oximetry 01/01/25 01/01/25 22:45 23:00 Temperature 98.9 F Pulse Rate 61 61 Respiratory 16 16 Rate Blood Pressure 103/51 93/52 O2 Sat by Pulse 94 L 95 Oximetry Medical Decision Making - Medical Decision Making Was pt. sent in by a medical professional or institution ([facility], [employer], urgent care, hospital, or penitentiary...) When possible be specific @ -No Did you speak to anyone other than the patient for history (EMS, parent, family, police, friend...)? What history was obtained from this source @ - provided entirety of HPI Did you review nursing and triage notes (agree or disagree)? Why? @ -I reviewed and agree with nursing and triage notes Were old charts reviewed (outside hosp., previous admission, EMS record, old EKG, old radiological studies, urgent care reports/EKG's, penitentiary records)? Report findings @ -ER visit from 12/15/2024 and subsequent admission for pneumonia along with notes during patient's stay in hospital reviewed. Differential Diagnosis (chest pain, altered mental status, abdominal pain women, abdominal pain men, vaginal bleeding, weakness, fever, dyspnea, syncope, headache, dizziness, GI bleed, back pain, seizure, CVA, palpatations, mental health, musculoskeletal)? @ -Differential Dyspnea: Coronary syndrome, arrhythmia, tamponade, asthma, COPD, pulmonary embolism, pneumonia, pneumothorax, pulmonary effusion, anaphylaxis, diabetic ketoacidosis, flailed chest, pulmonary contusion, diaphragmatic rupture, anemia, danielle romuscular, this is not meant to be an all-inclusive list. Differential Altered Mental Status: Hypoglycemia, DKA, hypercapnia, ETOH, overdose, CO poisoning, trauma, myxedema coma, HTN encephalopathy, infection, encephalitis, psychosis, intercranial hemorrhage, hepatic encephalopathy, meningitis, CVA, this is not meant to be an all-inclusive list EKG interpreted by me (3pts min.). @ -Sinus rhythm with diffuse T wave inversion in inferior, anterior and V5/V6 lateral leads. No ST deviation. Ventricular rate 68 bpm, DELISA 160 ms, QRS 106 ms, QTc 417 ms. X-rays interpreted by me (1pt min.). @ -CXR shows diffuse worsening infiltrates indicating possible atypical pneumonia and pulmonary edema/CHF. CT interpreted by me (1pt min.). @ -Brain CT shows no acute intracranial process. U/S interpreted by me (1pt. min.). @ -None done What testing was considered but not performed or refused? (CT, X-rays, U/S, labs)? Why? @ -None What meds were considered but not given or refused? Why? @ -None Did you discuss the management of the patient with other professionals (professionals i.e. , PA, [employer]ELOPER, lab, RT, psych nurse, psychiatric social worker supervisor, internal combustion engineer, teacher, conservation officer, home health care case manager)? Give summary @ -No Was smoking cessation discussed for >3mins.? @ -No Was critical care preformed (if so, how long)? @ -No Were there social determinants of health that impacted care today? How? (Homelessness, low income, unemployed, alcoholism, drug addiction, transport ation, low edu. Level, literacy, decrease access to med. care, group home, rehab)? @ -No Was there de-escalation of care discussed even if they declined (Discuss DNR or withdrawal of care, Hospice)? DNR status @ -No What co-morbidities impacted this encounter? (DM, HTN, Smoking, COPD, CAD, Cancer, CVA, ARF, Chemo, Hep., AIDS, mental health diagnosis, sleep apnea, morbid obesity)? @ -None Was patient admitted / discharged? Hospital course, mention meds given and route, prescriptions, significant lab abnormalities, going to OR and other pertinent info. @ -Patient initially provided IV normal saline. Lab work shows leukocytosis 19.29 with left shift and stable hemoglobin 11.7. BUN 35 and BNP 5170. VBG, troponin, lactic acid all unremarkable. Cepheid test negative. CXR shows diffuse worsening infiltrates indicating possible atypical pneumonia and pulmonary edema/CHF. Brain CT shows no acute intracranial process. Patient started on IV vancomycin and cefepime. Spoke to Dr. Donnelly who agreed to patient admission for pneumonia and sepsis. Continue pushing IV normal saline and LR to stabilize labile blood pressure while avoiding fluid overload of lungs. Echocardiogram for morning also ordered. Procalcitonin pending. Discussed patient with Dr. Toribio. Undiagnosed new problem with uncertain prognosis? @ -No Drug Therapy requiring intensive monitoring for toxicity (Heparin, Nitro, Insulin, Cardizem)? @ -No Were any procedures done? @ -No Diagnosis/symptom? @ -Pneumonia, sepsis Acute, or Chronic, or Acute on Chronic? @ -Acute Uncomplicated (without systemic symptoms) or Complicated (systemic symptoms)? @ -Complicated Side effects of treatment? @ -No Exacerbation, Progression, or Severe Exacerbation? @ -No Poses a threat to life or bodily function? How? (Chest pain, USA, OR, pneumonia, PE, COPD, DKA, ARF, appy, cholecystitis, CVA, Diverticulitis, Homicidal, Suicidal, threat to staff... and all critical care pts) @ -Pneumonia, respiratory failure. Sepsis, endorgan injury/damage - Lab Data Result diagrams: 01/01/25 19:39 01/01/25 19:39 Lab Results 01/01/25 01/01/25 01/01/25 Range/Units 19:39 19:39 19:39 WBC 19.29 H (4.50-10.00) 10*3/uL RBC 4.16 L (4.40-5.60) 10*6/uL Hgb 11.7 L (13.0-17.0) g/dL Hct 36.0 L (39.6-50.0) % MCV 86.5 (80.0-97.0) fL MCH 28.1 (27.0-32.0) pg MCHC 32.5 (32.0-37.0) g/dL Plt Count 236 (140-440) 10*3/uL MPV 9.1 L (9.5-12.2) fL Immature Gran % (Auto) 0.4 % Neutrophils % 90.5 % Lymphocytes % 3.5 % Monocytes % 5.1 % Eosinophils % 0.2 % Basophils % 0.3 % Immature Gran # 0.07 H (0.00-0.04) 10*3/uL Neutrophils # 17.46 H (1.80-7.70) 10*3/uL Lymphocytes # 0.68 L (0.90-5.00) 10*3/uL Monocytes # 0.99 (0.20-1.00) 10*3/uL Eosinophils # 0.04 (0.04-0.35) 10*3/uL Basophils # 0.05 (0.00-0.10) 10*3/uL Manual Slide Review Performed PT 12.2 (10.0-12.5) sec INR 1.1 (<1.2) APTT 23.8 (22.0-30.0) sec VBG pH (7.31-7.41) VBG pCO2 (37-51) mmHg VBG HCO3 (24-28) mmol/L Sodium 137 (137-145) mmol/L Potassium 5.1 (3.5-5.1) mmol/L Chloride 104 (98-107) mmol/L Carbon Dioxide 24 (22-30) mmol/L Anion Gap 9 mmol/L BUN 35 H (9-20) mg/dL Creatinine 0.96 (0.66-1.25) mg/dL Est GFR (CKD-EPI)AfAm 86 (>60 ml/min/1.73 sqM) Est GFR (CKD-EPI)NonAf 74 (>60 ml/min/1.73 sqM) Glucose 114 H (74-99) mg/dL Plasma Lactic Acid Krishna (0.7-2.0) mmol/L Calcium 8.4 (8.4-10.2) mg/dL Phosphorus (2.5-4.5) mg/dL Magnesium 2.1 (1.6-2.3) mg/dL Total Bilirubin 1.2 (0.2-1.3) mg/dL AST 31 (17-59) U/L ALT 26 (4-49) U/L Alkaline Phosphatase 68 (38-126) U/L Ammonia (<30) umol/L Troponin I (0.000-0.034) ng/mL NT-Pro-B Natriuret Pep 5170 pg/mL Total Protein 6.4 (6.3-8.2) g/dL Albumin 3.5 (3.5-5.0) g/dL Influenza Type A (PCR) (Not Detectd) Influenza Type B (PCR) (Not Detectd) RSV (PCR) (Not Detectd) SARS-CoV-2 (PCR) (Not Detectd) 01/01/25 01/01/25 01/01/25 Range/Units 19:39 19:39 20:28 WBC (4.50-10.00) 10*3/uL RBC (4.40-5.60) 10*6/uL Hgb (13.0-17.0) g/dL Hct (39.6-50.0) % MCV (80.0-97.0) fL MCH (27.0-32.0) pg MCHC (32.0-37.0) g/dL Plt Count (140-440) 10*3/uL MPV (9.5-12.2) fL Immature Gran % (Auto) % Neutrophils % % Lymphocytes % % Monocytes % % Eosinophils % % Basophils % % Immature Gran # (0.00-0.04) 10*3/uL Neutrophils # (1.80-7.70) 10*3/uL Lymphocytes # (0.90-5.00) 10*3/uL Monocytes # (0.20-1.00) 10*3/uL Eosinophils # (0.04-0.35) 10*3/uL Basophils # (0.00-0.10) 10*3/uL Manual Slide Review PT (10.0-12.5) sec INR (<1.2) APTT (22.0-30.0) sec VBG pH (7.31-7.41) VBG pCO2 (37-51) mmHg VBG HCO3 (24-28) mmol/L Sodium (137-145) mmol/L Potassium (3.5-5.1) mmol/L Chloride (98-107) mmol/L Carbon Dioxide (22-30) mmol/L Anion Gap mmol/L BUN (9-20) mg/dL Creatinine (0.66-1.25) mg/dL Est GFR (CKD-EPI)AfAm (>60 ml/min/1.73 sqM) Est GFR (CKD-EPI)NonAf (>60 ml/min/1.73 sqM) Glucose (74-99) mg/dL Plasma Lactic Acid Krishna 1.9 (0.7-2.0) mmol/L Calcium (8.4-10.2) mg/dL Phosphorus 3.8 (2.5-4.5) mg/dL Magnesium (1.6-2.3) mg/dL Total Bilirubin (0.2-1.3) mg/dL AST (17-59) U/L ALT (4-49) U/L Alkaline Phosphatase (38-126) U/L Ammonia (<30) umol/L Troponin I <0.012 (0.000-0.034) ng/mL NT-Pro-B Natriuret Pep pg/mL Total Protein (6.3-8.2) g/dL Albumin (3.5-5.0) g/dL Influenza Type A (PCR) (Not Detectd) Influenza Type B (PCR) (Not Detectd) RSV (PCR) (Not Detectd) SARS-CoV-2 (PCR) (Not Detectd) 01/01/25 01/01/25 01/01/25 Range/Units 20:28 20:28 20:29 WBC (4.50-10.00) 10*3/uL RBC (4.40-5.60) 10*6/uL Hgb (13.0-17.0) g/dL Hct (39.6-50.0) % MCV (80.0-97.0) fL MCH (27.0-32.0) pg MCHC (32.0-37.0) g/dL Plt Count (140-440) 10*3/uL MPV (9.5-12.2) fL Immature Gran % (Auto) % Neutrophils % % Lymphocytes % % Monocytes % % Eosinophils % % Basophils % % Immature Gran # (0.00-0.04) 10*3/uL Neutrophils # (1.80-7.70) 10*3/uL Lymphocytes # (0.90-5.00) 10*3/uL Monocytes # (0.20-1.00) 10*3/uL Eosinophils # (0.04-0.35) 10*3/uL Basophils # (0.00-0.10) 10*3/uL Manual Slide Review PT (10.0-12.5) sec INR (<1.2) APTT (22.0-30.0) sec VBG pH 7.40 (7.31-7.41) VBG pCO2 43 (37-51) mmHg VBG HCO3 27 (24-28) mmol/L Sodium (137-145) mmol/L Potassium (3.5-5.1) mmol/L Chloride (98-107) mmol/L Carbon Dioxide (22-30) mmol/L Anion Gap mmol/L BUN (9-20) mg/dL Creatinine (0.66-1.25) mg/dL Est GFR (CKD-EPI)AfAm (>60 ml/min/1.73 sqM) Est GFR (CKD-EPI)NonAf (>60 ml/min/1.73 sqM) Glucose (74-99) mg/dL Plasma Lactic Acid Krishna (0.7-2.0) mmol/L Calcium (8.4-10.2) mg/dL Phosphorus (2.5-4.5) mg/dL Magnesium (1.6-2.3) mg/dL Total Bilirubin (0.2-1.3) mg/dL AST (17-59) U/L ALT (4-49) U/L Alkaline Phosphatase (38-126) U/L Ammonia 10 (<30) umol/L Troponin I (0.000-0.034) ng/mL NT-Pro-B Natriuret Pep pg/mL Total Protein (6.3-8.2) g/dL Albumin (3.5-5.0) g/dL Influenza Type A (PCR) Not Detected (Not Detectd) Influenza Type B (PCR) Not Detected (Not Detectd) RSV (PCR) Not Detected (Not Detectd) SARS-CoV-2 (PCR) Not Detected (Not Detectd) Disposition Clinical Impression: Pneumonia, Sepsis Disposition: ADMITTED IP TO THIS HOSP Condition: Serious Referrals: Stewart Ramos MD [Primary Care Provider] - 1-2 days Time of Disposition: 20:39 Decision Date: 01/01/25 Decision Time: 20:39
[2025-01-01] MEDS: SODIUM CHLORIDE 0.9% 1,000 ML IV STA ×2 (19:50→20:13)
[2025-01-01 20:05] LABS: ALT 26 U/L (4-49); AST 31 U/L (17-59); African American GFR (CKD) 86 (>60 ml/min/1.73 sqM); Albumin 3.5 g/dL (3.5-5.0); Alkaline Phosphatase 68 U/L (38-126); Anion Gap 9 mmol/L; Blood Urea Nitrogen 35 mg/dL (9-20); Calcium 8.4 mg/dL (8.4-10.2); Carbon Dioxide 24 mmol/L (22-30); Chloride 104 mmol/L (98-107); Glucose 114 mg/dL (74-99); Magnesium 2.1 mg/dL (1.6-2.3); Non-African American GFR(CKD) 74 (>60 ml/min/1.73 sqM); Potassium 5.1 mmol/L (3.5-5.1); Sodium 137 mmol/L (137-145); Total Bilirubin 1.2 mg/dL (0.2-1.3); Total Protein 6.4 g/dL (6.3-8.2)
[2025-01-01 20:06] LABS: INR 1.1 (<1.2); Partial Thromboplastin Time 23.8 sec (22.0-30.0); Prothrombin Time 12.2 sec (10.0-12.5)
[2025-01-01 20:09] LABS: Basophils # (A) 0.05 10*3/uL (0.00-0.10); Basophils % (A) 0.3 %; Eosinophils # (A) 0.04 10*3/uL (0.04-0.35); Eosinophils % (A) 0.2 %; HGB 11.7 g/dL (13.0-17.0); Lymphocytes # (A) 0.68 10*3/uL (0.90-5.00); Lymphocytes % (A) 3.5 %; MCH 28.1 pg (27.0-32.0); MCHC 32.5 g/dL (32.0-37.0); MCV 86.5 fL (80.0-97.0); Mean Platelet Volume 9.1 fL (9.5-12.2); Monocytes # (A) 0.99 10*3/uL (0.20-1.00); Monocytes % (A) 5.1 %; Neutrophils # (A) 17.46 10*3/uL (1.80-7.70); Neutrophils % (A) 90.5 %; Platelet Count 236 10*3/uL (140-440); RBC 4.16 10*6/uL (4.40-5.60); RDW 16.2 % (11.5-14.5); WBC 19.29 10*3/uL (4.50-10.00)
--- NOTE | 2025-01-01 20:10 | XR ---
EXAMINATION TYPE: XR chest 2V DATE OF EXAM: 01/01/2025 7:58 PM COMPARISON: 12/16/2024 CLINICAL INDICATION: Male, 79 years old with history of difficulty breathing, TECHNIQUE: XR chest 2V view(s) obtained. FINDINGS: The heart size is normal. The pulmonary vasculature is normal. Diffuse patchy infiltrates are present greater in the right lower lung field. Correlate for atypical pulmonary edema. Pneumonia atypical pneumonia should also be considered. Findings are worsening from comparison.. IMPRESSION: 1. Diffuse worsening infiltrate. Correlate for pulmonary edema and congestive heart failure. Differen tial diagnosis could include pneumonia atypical pneumonia. [facility], , 01/01/2025 8:08 PM
[2025-01-01 20:12] LABS: NT-Pro-B-Type Natriuretic Pept 5170 pg/mL
[2025-01-01 20:41] LABS: VBG PH 7.4 (7.31-7.41)
--- NOTE | 2025-01-01 20:44 | CT ---
EXAMINATION TYPE: CT brain wo con DATE OF EXAM: 01/01/2025 8:12 PM COMPARISON: None. CLINICAL INDICATION: Male, 79 years old with history of AMS, cough, SOB starting today TECHNIQUE: CT of the brain is performed utilizing 3 mm thick sections through the posterior fossa and 3 mm thick sections through the remaining calvarium. Study is performed within 24 hours of arrival to the hospital. Contrast used: mL of , (none if empty) CT DLP: 1211.8 mGycm, Automated exposure control for dose reduction was used. FINDINGS: No abnormal hyperdensity is present to suggest an acute intracranial hemorrhage. No mass lesion is evident. No acute infarcts are evident. Ventricles and sulci are prominent for the patient age. Paranasal sinuses and mastoid air cells within the [id number] are clear. IMPRESSION: 1. No acute intracranial process. Follow up MRI can be performed as clinically indicated. [facility], , 01/01/2025 8:41 PM
[2025-01-01] MEDS: CEFEPIME 2 GM in SODIUM CHLORIDE 0.9% 100 ML IVPB STA (21:15)
[2025-01-01 21:19] LABS: Influenza A Not Detected (Not Detectd); Influenza B Not Detected (Not Detectd); RSV Not Detected (Not Detectd)
[2025-01-01] MEDS: LACTATED RINGERS 1,000 ML IV SCH ×2 (21:40→23:07)
[2025-01-01] MEDS ORDERED: SODIUM CHLORIDE 0.9% 500 ML 500 ML IV STA (21:50)
[2025-01-01] MEDS: VANCOMYCIN 1,250 MG in SODIUM CHLORIDE 0.9% 250 ML IVPB STA (22:08)
[2025-01-01] MEDS: LACTATED RINGERS 500 ML IV ONE (22:11)
[2025-01-01] MEDS: LACTATED RINGERS 1,000 ML IV ONE ×2 (22:12→23:30)
[2025-01-01] MEDS: SODIUM CHLORIDE 0.9% 1,000 ML IV SCH (23:07)
[2025-01-02] MEDS ORDERED: NALOXONE 0.4 MG/ML 1 ML VIAL IV PRN (00:26)
[2025-01-02] MEDS ORDERED: ONDANSETRON 4 MG/2 ML VIAL IVP PRN (00:26)
[2025-01-02] MEDS ORDERED: MORPHINE SULFATE 4 MG/ML SYRINGE IV PRN (00:26)
[2025-01-02] MEDS ORDERED: ALBUTEROL NEBULIZED 2.5 MG/3 ML INHALATION PRN (00:28)
[2025-01-02] MEDS: SODIUM CHLORIDE 0.9% 1,000 ML IV SCH (01:55)
--- NOTE | 2025-01-02 03:47 | P.CNPUL ---
History of Present Illness Consult date: 01/02/25 Requesting physician: Clarence Lucas Reason for consult: pneumonia Chief complaint: Shortness of breath History of present illness: Patient is an 79-year-old male with past medical history significant for dysphagia, esophageal strictures with previous balloon dilation, hiatal hernia, GERD, recurrent pneumonias, asbestosis, hypertension, hyperlipidemia, aortic valve stenosis status post TAVR, and recent left shoulder replacement. Of note, patient has been treated on several occasions for recurrent pneumonias since June,. Chest CT from 07/15/2024 demonstrated patchy infiltrates throughout the right lung. Pleural-based calcifications along the right diaphragm. Patient does have ongoing issues with dysphagia, Schatzki ring, and previous balloon dilation. Most recent EGD done 11/29/2024 remarkable for mild acute on chronic esophagitis. No strictures, dysplasia. More recently, patient had a hospitalization November 2024 for recurrent right-sided pneumonia. Sputum was positive during a previous hospitalization for Serratia marcescens and Gretchen. He was discharged on December 18 with a combination of Levaquin and Diflucan. Patient brought into the emergency department yesterday evening. Chief complaint increased work of breathing over the last 24 hours. Also, increased bilateral lower extremity swelling since surgery on Tuesday. He had a left total shoulder arthroplasty. His left arm is in a sling. Workup in the emergency department including a chest x-ray redemonstratin similar patchy right lower lung field infiltrates, with diffuse interstitial infiltrates concerning for pulmonary edema or atypical pneumonia. CBC: WBC count 19.3, hemoglobin 11.7, platelets 236. CMP unremarkable, electrolytes WDL, creatinine 0.96, glucose 114. Lactic 2.3. LFTs not elevated. Troponin less than 0.012. NT proBNP elevated at 5170. Viral 4 Plex negative for influenza A/B, RSV, COVID. Patient currently being evaluated emergency department. He is awake and alert and able to answer questions appropriately. Reportedly was previously obtunded while in the ED. Brain CT did not show any acute intracranial findings. VBG with a pH of 7.4 and PCO2 43. Ammonia 10. He has been taking [place] 10-325 mg for his left postsurgical shoulder pain. Also, previously found to be hypotensive, recorded as low as 78/58 mmHg. Did 3 L crystalloid fluid bolus. Blood pressure improved, currently 112/62 mmHg. Patient states that over the last 24-48 hrs. she has had increased work of breathing. Denies any coughing, sputum production, hemoptysis, fevers or chills, pleuritic chest pain. Did undergo left shoulder surgery on Tuesday and has increased swelling in his legs bilater ally. Denies any chest pain, heart palpitations, syncopal events. Does report history of TAVR. Most recent available echocardiogram from 2021 estimating left ventricular ejection fraction of 50 to 55% with a bioprosthetic aortic valve with moderate perivalvular aortic regurgitation and mild mitral regurgitation. Does not routinely take diuretics on outpatient basis. Vital signs: Temperature 98.9 F, heart rate 58 bpm, blood pressure 114/63 mmHg, nontachypneic, SpO2 recorded at 98% on 3 L/min nasal cannula. Review of Systems Constitutional: Reports fatigue, Denies fever/chills, Denies night sweats, Denies poor appetite, Denies weight gain, Denies weight loss Ears, nose, mouth and throat: Denies headache, Denies nasal congestion, Denies nasal discharge, Denies post-nasal drip, Denies sinus pain, Denies sinus pressure, Denies sore throat Cardiovascular: Denies chest pain, Denies leg edema, Denies lightheadedness, Denies orthopnea, Denies palpitations, Denies paroxysmal nocturnal dyspnea, Denies syncope Respiratory: Reports dyspnea, Denies cough with sputum, Denies excessive sputum, Denies home oxygen, Denies pain on inspiration, Denies wheezing Gastrointestinal: Denies abdominal pain, Denies change in bowel habits, Denies diarrhea, Denies nausea, Denies vomiting Genitourinary: Denies dysuria Musculoskeletal: Endorses recent left shoulder surgery on Tuesday, arm currently in a sling Integumentary: Denies rash Neurological: Denies head injury, Denies headaches, Denies seizures, Denies syncope Psychiatric: Denies anxiety, Denies depression Hematologic/Lymphatic: Denies lymphadenopathy Constitutional: Reports weight gain, Denies chills, Denies fever, Denies poor appetite, Denies weight loss Ears, nose, mouth and throat: Denies headache, Denies nasal congestion, Denies nasal discharge, Denies post-nasal drip, Denies sinus pain, Denies sinus pressure, Denies sore throat Cardiovascular: Reports as per HPI, Reports leg edema, Reports shortness of breath, Denies chest pain, Denies lightheadedness, Denies orthopnea, Denies palpitations, Denies paroxysmal nocturnal dyspnea, Denies syncope Respiratory: Reports as per HPI Gastrointestinal: Denies abdominal pain, Denies diarrhea, Denies nausea, Denies vomiting Genitourinary: Denies dysuria, Denies flank pain, Denies hematuria, Denies urinary frequency Musculoskeletal: left: shoulder pain, shoulder stiffness Integumentary: Denies rash Neurological: Denies seizures, Denies syncope Psychiatric: Denies anxiety, Denies depression Past Medical History Past Medical History: Heart Failure, GERD/Reflux, Hyperlipidemia, Hypertension, Musculoskeletal Disorder, Osteoarthritis (OA) Additional Past Medical History / Comment(s): esophageal constriction in the past, aortic valve stenosis, RLS, past hx. of compression fx. in back after a fall, chronic back pain, dry cough - has seen Dr. Monson recently History of Any Multi-Drug Resistant Organisms: None Reported Past Surgical History: Cardiac Valve Replacement, Heart Catheterization, Joint Replacement Additional Past Surgical History / Comment(s): colonoscopy, EGD, МАРИНА, transc atheter aortic valve replacement completed 01/06/22, Left Shoulder reverse replacement Past Anesthesia/Blood Transfusion Reactions: No Reported Reaction Past Psychological History: No Psychological Hx Reported Smoking Status: Former smoker Past Alcohol Use History: Occasional Past Drug Use History: None Reported - Past Family History Mother Family Medical History: No Reported History, Hypertension Father Family Medical History: No Reported History, Hypertension Medications and Allergies Home Medications Medication Instructions Recorded Confirmed Type Ezetimibe [Zetia] 10 mg PO DAILY 11/02/21 01/01/25 History Gabapentin [Neurontin] 400 mg PO QID 11/02/21 01/01/25 History HYDROcodone/APAP 10-325MG [[place] 1 tab PO Q6H PRN 11/02/21 01/01/25 History 10-325] Lansoprazole 30 mg PO DAILY 11/02/21 01/01/25 History Meloxicam [Mobic] 15 mg PO DAILY 11/02/21 01/01/25 History Metoprolol Tartrate [Lopressor] 25 mg PO BID 11/02/21 01/01/25 History lisinopriL [Zestril] 20 mg PO DAILY 11/02/21 01/01/25 History modafiniL [Provigil] 200 mg PO DAILY 11/02/21 01/01/25 History rOPINIRole HCL [Requip] 4 mg PO BID 11/02/21 01/01/25 History Rosuvastatin [Crestor] 10 mg PO DAILY 10/17/23 01/01/25 History Pramipexole [Mirapex] 0.5 mg PO HS 11/26/24 01/01/25 History Omeprazole 40 mg PO DAILY #30 cap 11/30/24 01/01/25 Rx Albuterol Sulfate [Albuterol 1 puff INHALATION RT-Q4H PRN 12/15/24 01/01/25 History Sulfate Hfa] Aspirin 81 mg PO BID 01/01/25 01/01/25 History Fluticasone/Umeclidin/Vilanter 1 puff INHALATION RT-DAILY 01/02/25 01/02/25 History [Trelegy Ellipta 100-62.5-25] Allergies Allergy/AdvReac Type Severity Reaction Status Date / Time No Known Allergies Allergy Verified 01/01/25 20:40 Physical Exam Vitals: Vital Signs Temp Pulse Resp BP Pulse Ox 01/02/25 01:47 58 L 18 114/63 98 01/02/25 01:30 62 18 105/59 98 01/02/25 01:15 64 18 99/54 98 01/02/25 01:00 58 L 18 104/55 98 01/02/25 00:45 60 18 85/55 98 01/02/25 00:30 62 18 110/57 98 01/02/25 00:15 61 18 112/62 96 01/02/25 00:00 64 18 93/54 95 01/01/25 23:45 61 18 100/66 95 01/01/25 23:30 62 18 86/55 95 01/01/25 23:15 64 18 93/51 95 01/01/25 23:00 61 16 93/52 95 01/01/25 22:45 98.9 F 61 16 103/51 94 L 01/01/25 22:30 65 16 109/49 95 01/01/25 22:15 64 16 109/48 95 01/01/25 22:00 64 16 77/41 95 01/01/25 21:30 67 16 90/49 94 L 01/01/25 21:29 18 01/01/25 21:00 98.9 F 67 18 97/57 95 01/01/25 20:30 68 18 104/50 95 01/01/25 20:15 65 18 87/51 95 01/01/25 20:00 69 16 94/63 95 01/01/25 19:45 67 16 78/58 97 01/01/25 19:30 68 16 80/39 98 01/01/25 18:27 99.5 F 59 L 18 88/49 99 Intake and Output 01/01/25 01/01/25 01/02/25 14:59 22:59 06:59 Other: Weight 74.389 kg GENERAL EXAM: Alert, 79-year-old male, sitting up in bed, with left arm sling, comfortable in no apparent distress. HEAD: Normocephalic and atraumatic EYES: Normal reaction of pupils, equal size. NOSE: Clear with pink turbinates. THROAT: No erythema or exudates. NECK: No masses, no JVD. CHEST: No chest wall deformity. LUNGS: Equal air entry with right posterior lung wheezing/rhonchi. Left lung mostly clear with auscultation. On 3 L/min nasal cannula. No conversational dyspnea or accessory muscle use.. While at rest CVS: S1 and S2 normal with grade 2 systolic murmur, regular rhythm. No other extra heart sounds ABDOMEN: No hepatosplenomegaly, active bowel sounds, no guarding or rigidity. SPINE: No scoliosis or deformity SKIN: No rashes CENTRAL NERVOUS SYSTEM: No focal deficits, tone is normal in all 4 extremities. EXTREMITIES: Left arm in a sling, postsurgical incision approximated clean and dry. There is 2+ bilateral lower extremity edema. No clubbing or cyanosis. Peripheral pulses are intact Results - Laboratory Findings CBC and BMP: 01/01/25 19:39 01/01/25 19:39 PT/INR, D-dimer PT 12.2 sec (10.0-12.5) 01/01/25 19:39 INR 1.1 (<1.2) 01/01/25 19:39 Abnormal lab findings: Abnormal Labs 01/01/25 01/01/25 01/02/25 19:39 19:39 01:07 WBC 19.29 H RBC 4.16 L Hgb 11.7 L Hct 36.0 L MPV 9.1 L Immature Gran # 0.07 H Neutrophils # 17.46 H Lymphocytes # 0.68 L BUN 35 H Glucose 114 H Plasma Lactic Acid Krishna 2.3 H* - Diagnostic Findings Chest x-ray: image reviewed Assessment and Plan Assessment: History of recurrent right-sided pneumonia, sputum culture previously positive for Gretchen and Serratia marcescens on 11/28/2024, patient has had repeat hospitalization, most recently discharged on December 18 with a combination of oral Levaquin and Diflucan. Repeat chest x-ray showing redemonstration of similar patchy right lower lung field infiltrates, with more diffuse interstitial infiltrates concerning for pulmonary edema or atypical pneumonia. NT-proBNP 5170. Viral 4 Plex negative for influenza A/B, RSV, COVID. Suspect acute CHF exacerbation, with unknown ejection fraction Acute hypoxemic respiratory failure, currently on oxygen 3 L /min nasal cannula Hypotension, has responded to fluid resuscitation Recurrent dysphagia with a history of esophageal strictures and Schatzki ring, most recent undergoing balloon dilation May,. Repeat EGD done On 11/29/2024 remarkable findings for mild esophagitis. No noted esophageal strictures, hernias. 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 Check procalcitonin level Obtain repeat transthoracic echocardiogram Add gentle diuresis Case to be discussed with Dr. Campos, further recommendations to follow I have personally seen and examined the patient, performed the documentation and the assessment and plan as written. Number of minutes spent on the visit:20 This is a joint evaluation that was done along with nurse practitioner. This evaluation was done in more than 30 minutes and the patient was seen and evaluated in the emergency department. The patient is coming in with symptoms of worsening shortness of breath and generalized weakness and the patient has developed recurrent pneumonia bilateral right more than left. Noted the patient has had previous episodes of pneumonia and previous sputum cultures were positive for Serratia marcescens and Gretchen back in 11/28/2024 and the patient was treated appropriately and subsequent chest x-ray shows clearing of the pul monary infiltrates. He has history of asbestosis with bilateral pleural plaquing. The patient underwent a left shoulder replacement surgery, redo surgery that was done in an outside hospital. This was done under general anesthesia. No reported aspiration. He is known to have history of dysphagia with esophageal strictures and Schatzki's rings and the patient has undergone repeat EGD that was done on 11/29/2024 showing no remarkable disease. His blood work from today showing a white cell count of 19 with a hemoglobin 11.7 and a platelet count of 236. Electrolytes are stable. Initial procalcitonin level was at 14.2 and it dropped down to 8.1. The patient's lactic acid level was also mildly elevated at 2.3 dropped down to 0.8. His current antibiotic coverage including combination of cefepime and vancomycin. Outpatient medication resumed. He is also on Lasix 20 g IV every 12 hours. Repeat echocardiogram was ordered. Will continue to follow this patient closely. The patient is currently on room air oxygen with a pulse ox of 98%. Surgical wound site over the left shoulder area is dry clean and intact. Time with Patient: Greater than 30
[2025-01-02] MEDS ORDERED: LEVOFLOXACIN 750MG-D5W PMX 750 MG in DEXTROSE/WATER 1 150ML.BAG IVPB SCH (06:00)
[2025-01-02 06:34] LABS: Appearance,Urine Clear (Clear); Bilirubin,Urine Negative (Negative); Blood,Urine Negative (Negative); Color,Urine Yellow; Glucose,Urine (UA) Negative (Negative); Ketones,Urine Negative (Negative); Leukocyte Esterase,Urine Negative (Negative); Nitrite,Urine Negative (Negative); PH, Urine 6.5 (5.0-8.0); Protein,Urine Negative (Negative); Urobilinogen,Urine <2.0 mg/dL (<2.0)
[2025-01-02] MEDS: CEFEPIME 2 GM in SODIUM CHLORIDE 0.9% 100 ML IVPB SCH ×2 (07:37→20:54)
[2025-01-02] MEDS: METOPROLOL TARTRATE 25 MG TAB PO SCH (08:15)
[2025-01-02] MEDS: EZETIMIBE 10 MG TAB PO SCH (08:15)
[2025-01-02] MEDS: lisinopriL 20 MG TAB PO SCH (08:15)
[2025-01-02] MEDS: PANTOPRAZOLE 40 MG TABLET PO SCH (08:15)
[2025-01-02] MEDS: ASPIRIN 81 MG PO SCH (08:15)
[2025-01-02] MEDS: ATORVASTATIN 20 MG TAB PO SCH (08:15)
[2025-01-02] MEDS: GABAPENTIN 400 MG CAP PO SCH (08:15)
[2025-01-02] MEDS: FUROSEMIDE 10 MG/ML 2 ML VIAL IV SCH (08:16)
[2025-01-02] MEDS: rOPINIRole HCL 4 MG TABLET PO SCH (08:16)
[2025-01-02] MEDS ORDERED: NON FORMULARY DRUG (Omeprazole [Omeprazole] 40 MG Capsule.Dr) PO SCH (09:00)
[2025-01-02] MEDS ORDERED: VANCOMYCIN IV PER PHARMACY 1 EACH MISC MISCELLANE PRN (11:38)
[2025-01-02] MEDS: VANCOMYCIN 1,250 MG in SODIUM CHLORIDE 0.9% 250 ML IVPB SCH (14:02)
--- NOTE | 2025-01-02 15:53 | P.HPIM ---
History of Present Illness H&P Date: 01/02/25 Chief Complaint: Short of breath Very pleasant 79-year-old male , follows with Dr. Stewart Ramos. Delivery Room Supervisor Dr. Oliveira and towing pilot Dr. Monson. Medical conditions include GERD, hypertension, hyperlipidemia, osteoarthritis, esophageal stricture constriction in the past, aortic valve stenosis, restless leg syndrome. Chronic back pain from a fall in his younger days. Ex-smoker. EGD with Dr. Spring on November 29. No stricture found Patient felt other sleepy all day. Tired. Also short of breath cough sputum production. Drenched in sweat. deCreased appetite yesterday. Until day before he has been active.. Doing his work. 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 Left shoulder pain LYMPHATICS: None HEMATOLOGICAL: None PSYCHIATRY: None NEUROLOGICAL: None Social history: Smoked less than a pack half a pack a day for 20 years stopped about 40 years ago. 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 . Physical examination: VITAL SIGNS: 98.8, 74, 18, 134 x 63, 95% room GENERAL: BMI 28.2, resting bed, tired sleepy EYES: Pupils equal. Conjunctiva hugh l. HEENT: External appearance of nose and ears normal, oral cavity grossly normal. NECK: JVD not raised; masses not palpable. HEART: First and second heart sounds are normal; no edema. LUNGS: Respiratory rate and increased, coarse breath sounds on the right side., ABDOMEN: Soft, nontender, liver spleen not palpable, no masses palpable. PSYCH: Sleepy tired but able to answer question MUSCULOSKELETAL:No Clubbing/cyanosis;muscles-grossly intact. OA. Limited range of motion left shoulder. Left arm in a sling NEUROLOGICAL: Cranial nerves grossly intact; no facial asymmetry, power and sensation grossly intact. LYMPHATICS: No lymph nodes palpable in the axilla and neck INVESTIGATIONS, reviewed in the clinical context: UA: Negative 6 influenza type A, type B, RSV, SARS-CoV-2: Not detected . : White count 19.2 hemoglobin 11.7 platelets 236 sodium 137 potassium 5.1 BUN 35 creatinine 0.96 Lactic acid 1.9, 2.3 Procalcitonin 14.2 EKG tracing personally reviewed by me-normal sinus rhythm. Abnormal T waves inferior lateral leads CT brain: Nothing acute Chest x-ray film personally reviewed by me-scattered infiltrates Assessment plan: - multilobar pneumonia suspect gram-negative organism, recurrent episode pneumonia [Presented with cough short of breath sputum production, heavy perspiration) IV cefepime vancomycin Nasal screen for MRSA -History of dysphagia. Patient is at multiple esophageal dilatation in the past. Dr. Spring did EGD November 2024. No stricture identified -Given recurrent pneumonia, check immune deficiency panel -Restless leg syndrome Requip 4 mg twice daily -Chronic low back pain from prior injury Neurontin 400 mg 3 times daily as needed. Mobic. [place] 10. - Left shoulder dysfunction. Being followed by orthopedics outpatient Left arm in a sling -COPD in a previous smoker DuoNeb 3 times daily -GERD Lansoprazole 30 mg daily -Essential hypertension, Zestril Lopressor -Hyperlipidemia Zetia 10 mg a day -Full code Care was discussed with the patient and . Consulted pulmonary Past Medical History Past Medical History: Heart Failure, GERD/Reflux, Hyperlipidemia, Hypertension, Musculoskeletal Disorder, Osteoarthritis (OA) Additional Past Medical History / Comment(s): esophageal constriction in the past, aortic valve stenosis, RLS, past hx. of compression fx. in back after a fall, chronic back pain, dry cough - has seen Dr. 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, Left Shoulder reverse replacement Past Anesthesia/Blood Transfusion Reactions: No Reported Reaction Past Psychological History: No Psychological Hx Reported Smoking Status: Former smoker Past Alcohol Use History: Occasional Past Drug Use History: None Reported - Past Family History Mother Family Medical History: No Reported History, Hypertension Father Family Medical History: No Reported History, Hypertension Medications and Allergies Home Medications Medication Instructions Recorded Confirmed Type Ezetimibe [Zetia] 10 mg PO DAILY 11/02/21 01/01/25 History Gabapentin [Neurontin] 400 mg PO QID 11/02/21 01/01/25 History HYDROcodone/APAP 10-325MG [[place] 1 tab PO Q6H PRN 11/02/21 01/01/25 History 10-325] Lansoprazole 30 mg PO DAILY 11/02/21 01/01/25 History Meloxicam [Mobic] 15 mg PO DAILY 11/02/21 01/01/25 History Metoprolol Tartrate [Lopressor] 25 mg PO BID 11/02/21 01/01/25 History lisinopriL [Zestril] 20 mg PO DAILY 11/02/21 01/01/25 History modafiniL [Provigil] 200 mg PO DAILY 11/02/21 01/01/25 History rOPINIRole HCL [Requip] 4 mg PO BID 11/02/21 01/01/25 History Rosuvastatin [Crestor] 10 mg PO DAILY 10/17/23 01/01/25 History Pramipexole [Mirapex] 0.5 mg PO HS 11/26/24 01/01/25 History Omeprazole 40 mg PO DAILY #30 cap 11/30/24 01/01/25 Rx Albuterol Sulfate [Albuterol 1 puff INHALATION RT-Q4H PRN 12/15/24 01/01/25 History Sulfate Hfa] Aspirin 81 mg PO BID 01/01/25 01/01/25 History Fluticasone/Umeclidin/Vilanter 1 puff INHALATION RT-DAILY 01/02/25 01/02/25 History [Trelegy Ellipta 100-62.5-25] Allergies Allergy/AdvReac Type Severity Reaction Status Date / Time No Known Allergies Allergy Verified 01/01/25 20:40 Physical Exam Vitals: Vital Signs Temp Pulse Resp BP Pulse Ox 01/02/25 10:18 76 18 140/69 94 L 01/02/25 09:23 74 16 123/90 92 L 01/02/25 08:14 78 16 136/69 96 01/02/25 07:24 73 16 126/73 96 01/02/25 06:00 98.8 F 74 18 134/63 98 01/02/25 05:00 70 18 128/68 98 01/02/25 04:30 71 18 136/70 98 01/02/25 04:00 61 18 127/65 98 01/02/25 03:30 62 18 110/65 98 06/04/25 03:00 98.9 F 61 18 109/58 98 01/02/25 02:30 61 18 105/65 98 01/02/25 02:00 59 L 18 109/63 98 01/02/25 01:47 58 L 18 114/63 98 01/02/25 01:30 62 18 105/59 98 01/02/25 01:15 64 18 99/54 98 01/02/25 01:00 58 L 18 104/55 98 01/02/25 00:45 98.8 F 60 18 85/55 98 01/02/25 00:30 62 18 110/57 98 01/02/25 00:15 61 18 112/62 96 01/02/25 00:00 64 18 93/54 95 01/01/25 23:45 61 18 100/66 95 01/01/25 23:30 62 18 86/55 95 01/01/25 23:15 64 18 93/51 95 01/01/25 23:00 61 16 93/52 95 01/01/25 22:45 98.9 F 61 16 103/51 94 L 01/01/25 22:30 65 16 109/49 95 01/01/25 22:15 64 16 109/48 95 01/01/25 22:00 64 16 77/41 95 01/01/25 21:30 67 16 90/49 94 L 01/01/25 21:29 18 01/01/25 21:00 98.9 F 67 18 97/57 95 01/01/25 20:30 68 18 104/50 95 01/01/25 20:15 65 18 87/51 95 01/01/25 20:00 69 16 94/63 95 01/01/25 19:45 67 16 78/58 97 01/01/25 19:30 68 16 80/39 98 01/01/25 18:27 99.5 F 59 L 18 88/49 99 Intake and Output 01/01/25 01/02/25 01/02/25 22:59 06:59 14:59 Other: Weight 74.389 kg Results CBC & Chem 7: 01/01/25 19:39 01/01/25 19:39 Labs: Abnormal Lab Results - Last 24 Hours (Table) 01/01/25 01/01/25 01/01/25 Range/Units 19:39 19:39 20:29 WBC 19.29 H (4.50-10.00) 10*3/uL RBC 4.16 L (4.40-5.60) 10*6/uL Hgb 11.7 L (13.0-17.0) g/dL Hct 36.0 L (39.6-50.0) % MPV 9.1 L (9.5-12.2) fL Immature Gran # 0.07 H (0.00-0.04) 10*3/uL Neutrophils # 17.46 H (1.80-7.70) 10*3/uL Lymphocytes # 0.68 L (0.90-5.00) 10*3/uL BUN 35 H (9-20) mg/dL Glucose 114 H (74-99) mg/dL Plasma Lactic Acid Krishna (0.7-2.0) mmol/L Procalcitonin 14.20 H (0.02-0.50) ng/mL 01/02/25 01/02/25 Range/Units 01:07 04:09 WBC (4.50-10.00) 10*3/uL RBC (4.40-5.60) 10*6/uL Hgb (13.0-17.0) g/dL Hct (39.6-50.0) % MPV (9.5-12.2) fL Immature Gran # (0.00-0.04) 10*3/uL Neutrophils # (1.80-7.70) 10*3/uL Lymphocytes # (0.90-5.00) 10*3/uL BUN (9-20) mg/dL Glucose (74-99) mg/dL Plasma Lactic Acid Krishna 2.3 H* (0.7-2.0) mmol/L Procalcitonin 8.13 H (0.02-0.50) ng/mL
[2025-01-02] MEDS: PRAMIPEXOLE 0.5 MG TAB PO SCH (21:38)
[2025-01-02] MEDS: HYDROcodone/APAP 10-325MG 1 EACH TAB PO PRN (23:31)
[2025-01-03 06:27] LABS: Basophils # (A) 0.03 10*3/uL (0.00-0.10); Basophils % (A) 0.2 %; Eosinophils # (A) 0.13 10*3/uL (0.04-0.35); Eosinophils % (A) 0.9 %; HCT 30.5 % (39.6-50.0); Lymphocytes # (A) 0.84 10*3/uL (0.90-5.00); Lymphocytes % (A) 5.6 %; MCHC 32.1 g/dL (32.0-37.0); MCV 87.1 fL (80.0-97.0); Mean Platelet Volume 9.7 fL (9.5-12.2); Monocytes # (A) 1.03 10*3/uL (0.20-1.00); Monocytes % (A) 6.9 %; Neutrophils # (A) 12.75 10*3/uL (1.80-7.70); Neutrophils % (A) 85.8 %; Platelet Count 220 10*3/uL (140-440); RDW 15.9 % (11.5-14.5); WBC 14.87 10*3/uL (4.50-10.00)
[2025-01-03 06:29] LABS: HGB 9.8 g/dL (13.0-17.0)
[2025-01-03 07:17] LABS: African American GFR (CKD) >90 (>60 ml/min/1.73 sqM); Non-African American GFR(CKD) 83 (>60 ml/min/1.73 sqM)
[2025-01-03] MEDS: IPRATROPIUM-ALBUTEROL 3 ML NEB INHALATION SCH (12:15)
--- NOTE | 2025-01-03 15:16 | P.CRDCN ---
History of Present Illness Consult date: 01/03/25 Consult reason: congestive heart failure History of present illness: This is an 79-year-old male patient of Dr. Oliveira with past medical history of hypertension, hyperlipidemia, severe aortic stenosis status post TAVR, CAD. We have been asked to evaluate the patient for heart failure. Patient states that on Tuesday morning he had minimal shortness of breath. He did sleep all day and was feeling some sweats and a cough. He denies any sick contacts. He does complain of pain with deep breathing. No lower extremity edema but he has had t his in the past. He states that he has been eating and drinking okay. Patient recently had surgery on his left shoulder 2 weeks ago and is wearing a sling. Blood pressure 157/70, heart rate 64, pulse ox 94% on room air. Patient has been started on IV Lasix 20 mg daily as well as IV antibiotics. Patient states that he is feeling much better at the time of this evaluation. -EKG: Sinus rhythm with T wave inversion -Chest x-ray: Diffuse worsening infiltrate. Correlate for pulmonary edema and c ongestive heart failure. Differential includes pneumonia, atypical pneumonia. -CT brain: No acute process. -Laboratory studies: WBC initially 19.2 now 14.8, hemoglobin 9.8, creatinine 0.82, troponin negative x 1, proBNP 5170. Procalcitonin 14.2. Cepheid viral panel not detected. Urinalysis negative. -Home cardiac medications: Aspirin 81 mg twice daily, Zetia 10 mg daily, lisinopril 20 mg daily, metoprolol tartrate 25 mg twice daily, rosuvastatin 10 mg daily. -Echocardiogram performed in the office on 03/05/2024 revealed EF 50 to 55%, moderate LVH. Aortic valve prosthetic mechanical dysfunction. Mild to moderate mitral regurgitation. Mild tricuspid regurgitation. Normal PASP 25. Trace to mild pulmonic regurgitation. Cardiac catheterization performed 11/18/2021 revealed calcified coronary arteries and aortic valve. Severe aortic stenosis. Mild triple-vessel disease Review Of Systems: At the time of my exam: CONSTITUTIONAL: Denies fever or chills. Reports sweats HEENT: Denies blurred vision, vision changes, or eye pain. Denies hemoptysis CARDIOVASCULAR: Denies chest pain. Denies orthopnea. Denies PND. Denies palpitations RESPIRATORY: Denies shortness of breath. GASTROINTESTINAL: Denies abdominal pain. Denies nausea or vomiting. HEMATOLOGIC: Denies bleeding disorders. GENITOURINARY: Denies any blood in urine. SKIN: Denies puritis. Denies rash. Physical examination: Gen: This is an 79-year-old male in no acute distress. VS: reviewed HEENT: Head is atraumatic, normocephalic. Pupils equal, round. Sclerae is anicteric. NECK: Supple. No JVD. LUNGS: Clear to auscultation. No wheezes or rhonchi. No intercostal retractions. HEART: Regular rate and rhythm. Systolic murmur. ABDOMEN: Soft No tenderness. EXTREMITIES: No pedal edema. No calf tenderness. NEUROLOGICAL: Patient is awake, alert and oriented x3. Assessment: Acute diastolic heart failure Possible pneumonia Anemia Hypertension Hyperlipidemia Severe aortic stenosis status post TAVR Mild triple-vessel coronary artery disease by cardiac catheterization Recent left shoulder surgery Plan: Resume patient's home cardiac medications Continue patient on IV Lasix 20 mg daily Monitor PATRICA, daily weights, electrolytes and renal function Obtain 2-D echocardiogram and Doppler study to assess cardiac structure and function Monitor blood culture Further recommendations to follow based upon clinical course Thank you kindly for this consultation. Nurse practitioner note has been reviewed, I agree with documented findings and plan of care. Patient was seen and examined. Past Medical History Past Medical History: Heart Failure, GERD/Reflux, Hyperlipidemia, Hypertension, Musculoskeletal Disorder, Osteoarthritis (OA) Additional Past Medical History / Comment(s): esophageal constriction in the past, aortic valve stenosis, RLS, past hx. of compression fx. in back after a fall, chronic back pain, dry cough - has seen Dr. Monson recently History of Any Multi-Drug Resistant Organisms: None Reported Past Surgical History: Cardiac Valve Replacement, Heart Catheterization, Joint Replacement Additional Past Surgical History / Comment(s): colonoscopy, EGD, МАРИНА, pierre scatheter aortic valve replacement completed 01/06/22, Left Shoulder reverse replacement Past Anesthesia/Blood Transfusion Reactions: No Reported Reaction Smoking Status: Former smoker - Past Family History Mother Family Medical History: No Reported History, Hypertension Father Family Medical History: No Reported History, Hypertension Medications and Allergies Home Medications Medication Instructions Recorded Confirmed Type Ezetimibe [Zetia] 10 mg PO DAILY 11/02/21 01/01/25 History Gabapentin [Neurontin] 400 mg PO QID 11/02/21 01/01/25 History HYDROcodone/APAP 10-325MG [[place] 1 tab PO Q6H PRN 11/02/21 01/01/25 History 10-325] Lansoprazole 30 mg PO DAILY 11/02/21 01/01/25 History Meloxicam [Mobic] 15 mg PO DAILY 11/02/21 01/01/25 History Metoprolol Tartrate [Lopressor] 25 mg PO BID 11/02/21 01/01/25 History lisinopriL [Zestril] 20 mg PO DAILY 11/02/21 01/01/25 History modafiniL [Provigil] 200 mg PO DAILY 11/02/21 01/01/25 History rOPINIRole HCL [Requip] 4 mg PO BID 11/02/21 01/01/25 History Rosuvastatin [Crestor] 10 mg PO DAILY 10/17/23 01/01/25 History Pramipexole [Mirapex] 0.5 mg PO HS 11/26/24 01/01/25 History Omeprazole 40 mg PO DAILY #30 cap 11/30/24 01/01/25 Rx Albuterol Sulfate [Albuterol 1 puff INHALATION RT-Q4H PRN 12/15/24 01/01/25 History Sulfate Hfa] Aspirin 81 mg PO BID 01/01/25 01/01/25 History Fluticasone/Umeclidin/Vilanter 1 puff INHALATION RT-DAILY 01/02/25 01/02/25 History [Trelegy Ellipta 100-62.5-25] Allergies Allergy/AdvReac Type Severity Reaction Status Date / Time No Known Allergies Allergy Verified 01/01/25 20:40 Physical Exam Vitals: Vital Signs Temp Pulse Pulse Resp BP BP Pulse Ox 01/03/25 04:05 99.0 F 64 19 157/70 94 L 01/03/25 00:00 99.8 F H 74 19 137/66 93 L 01/02/25 20:16 100.3 F H 73 19 105/71 93 L 01/02/25 16:00 98.4 F 72 19 124/64 98 01/02/25 12:00 98.9 F 73 20 140/69 98 01/02/25 11:16 64 18 121/63 93 L 01/02/25 10:18 76 18 140/69 94 L 01/02/25 09:23 74 16 123/90 92 L Intake and Output 01/02/25 01/03/25 01/03/25 22:59 06:59 14:59 Other: # Voids 2 Weight 74.389 kg 75 kg Results 01/03/25 05:48 01/03/25 05:48 CBC 01/03/25 Range/Units 05:48 WBC 14.87 H (4.50-10.00) 10*3/uL RBC 3.50 L (4.40-5.60) 10*6/uL Hgb 9.8 L D (13.0-17.0) g/dL Hct 30.5 L (39.6-50.0) % Plt Count 220 (140-440) 10*3/uL Comprehensive Metabolic Panel 01/03/25 Range/Units 05:48 Creatinine 0.82 (0.66-1.25) mg/dL Current Medications Generic Name Dose Route Start Last Admin Trade Name Freq PRN Reason Stop Dose Admin Acetaminophen 650 mg 01/02/25 00:26 Acetaminophen Tab 325 Mg Tab PO Q6HR PRN Mild Pain or Fever > 100.5 Hydrocodone Bitart/Acetaminophen 1 each 01/02/25 00:28 01/03/25 09:06 Hydrocodone/Apap 10-325mg 1 Each Tab PO 1 each Q6H PRN Administration Pain Albuterol Sulfate 2.5 mg 01/02/25 00:28 Albuterol Nebulized 2.5 Mg/3 Ml INHALATION RT-Q4H PRN Shortness Of Breath Aspirin 81 mg 01/02/25 09:00 01/03/25 09:06 Aspirin 81 Mg PO 81 mg BID JENNY Administration Atorvastatin Calcium 20 mg 01/02/25 09:00 01/03/25 09:06 Atorvastatin 20 Mg Tab PO 20 mg DAILY JENNY Administration Ezetimibe 10 mg 01/02/25 09:00 01/03/25 09:06 Ezetimibe 10 Mg Tab PO 10 mg DAILY JENNY Administration Furosemide 20 mg 01/02/25 09:00 01/03/25 09:06 Furosemide 10 Mg/Ml 2 Ml Vial IV 20 mg DAILY JENNY Administration Gabapentin 400 mg 01/02/25 09:00 01/03/25 09:06 Gabapentin 400 Mg Cap PO 400 mg QID JENNY Administration Cefepime HCl 2 gm/ Sodium 100 mls @ 25 mls/hr 01/02/25 20:00 01/03/25 09:05 Chloride IVPB 25 mls/hr Q12H JENNY Administration Protocol Vancomycin HCl 1,250 mg/ 250 mls @ 125 mls/hr 01/02/25 14:00 01/03/25 05:26 Sodium Chloride IVPB 125 mls/hr Q16H JENNY Administration Lisinopril 20 mg 01/02/25 09:00 01/03/25 09:06 Lisinopril 20 Mg Tab PO 20 mg DAILY JENNY Administration Metoprolol Tartrate 25 mg 01/02/25 09:00 01/03/25 09:06 Metoprolol Tartrate 25 Mg Tab PO 25 mg BID JENNY Administration Miscellaneous Information 0 each 01/04/25 13:00 Vancomycin Trough Due 1 Each Misc MISCELLANE 01/04/25 13:01 DIRECTED ONE Modafinil 200 mg 01/02/25 09:00 01/03/25 07:49 Modafinil 200 Mg Tab PO Not Given DAILY JENNY Morphine Sulfate 4 mg 01/02/25 00:26 Morphine Sulfate 4 Mg/Ml Syringe IV Q4HR PRN Severe Pain (Scale 7 to 10) Naloxone HCl 0.2 mg 01/02/25 00:26 Naloxone 0.4 Mg/Ml 1 Ml Vial IV Q2M PRN Opioid Reversal Ondansetron HCl 4 mg 01/02/25 00:26 Ondansetron 4 Mg/2 Ml Vial IVP Q8HR PRN Nausea And Vomiting Pantoprazole Sodium 40 mg 01/02/25 09:00 01/03/25 09:09 Pantoprazole 40 Mg Tablet PO 40 mg DAILY JENNY Administration Pramipexole Dihydrochloride 0.5 mg 01/02/25 21:00 01/02/25 21:38 Pramipexole 0.5 Mg Tab PO 0.5 mg HS JENNY Administration Ropinirole HCl 4 mg 01/02/25 09:00 01/03/25 09:05 Ropinirole Hcl 4 Mg Tablet PO 4 mg BID JENNY Administration Intake and Output 01/02/25 01/03/25 01/03/25 22:59 06:59 14:59 Other: # Voids 2 Weight 74.389 kg 75 kg 01/03/25 05:48 01/03/25 05:48
--- NOTE | 2025-01-03 17:08 | CA ---
Transthoracic Echo Report Name: Armando Sung Age: 79 Gender: M : 1945 Exam Date: 01/02/2025 08:12 Exam Location: [facility] Ht (in): 64 Wt (lb): 164 Ordering Physician: Clarence Lucas Attending/Referring Phys: Mechanical Product Design Engineer Dian King RDCS Procedure CPT: Indications: AMS, worsening edema, history of heart failure, Cardiomyopathy, unspecified Cardiac Hx: Technical Quality: Technically difficult study Contrast 1: Total Dose (mL): Contrast 2: Total Dose (mL): MEASUREMENTS (Male / Female) Normal Values 2D ECHO LV Diastolic Diameter PLAX 5.8 cm 4.2 - 5.9 / 3.9 - 5.3 cm LV Systolic Diameter PLAX 4.1 cm IVS Diastolic Thickness 1.0 cm 0.6 - 1.0 / 0.6 - 0.9 cm LVPW Diastolic Thickness 0.9 cm 0.6 - 1.0 / 0.6 - 0.9 cm LV Relative Wall Thickness 0.3 LVOT Diameter 1.8 cm LV Diastolic Volume MOD BP 182.9 cm??? 67 - 155 / 56 - 104 cm??? LV Systolic Volume MOD BP 77.5 cm??? 22 - 58 / 19 - 49 cm??? LV Ejection Fraction MOD BP 57.6 % >= 55 % LV Cardiac Index MOD BP 4433.4 cm???/min???m??? LV Diastolic Volume MOD 4C 181.3 cm??? LV Systolic Volume MOD 4C 67.7 cm??? LV Ejection Fraction MOD 4C 62.6 % LV Cardiac Index MOD 4C 4780.2 cm???/min???m??? LV Diastolic Length 4C 9.2 cm LV Systolic Length 4C 7.5 cm LV Diastolic Volume MOD 2C 181.8 cm??? LV Systolic Volume MOD 2C 85.3 cm??? LV Ejection Fraction MOD 2C 53.1 % LV Cardiac Index MOD 2C 4063.2 cm???/min???m??? LV Diastolic Length 2C 9.3 cm LV Systolic Length 2C 7.2 cm LA Volume 96.1 cm??? 18 - 58 / 22 - 52 cm??? LA Volume Index 51.9 cm???/m??? 16 - 28 cm???/m??? DOPPLER AV Peak Velocity 262.2 cm/s AV Peak Gradient 27.5 mmHg AV Mean Velocity 203.6 cm/s AV Mean Gradient 17.6 mmHg AV Velocity Time Integral 55.8 cm LVOT Peak Velocity 139.3 cm/s LVOT Peak Gradient 7.8 mmHg LVOT Velocity Time Integral 26.7 cm LVOT Stroke Volume 68.3 cm??? LVOT Stroke Volume Index 38.0 ml/m??? LVOT Cardiac Index 2872.8 cm???/min???m??? AV Area Cont Eq vti 1.2 cm??? AV Area Cont Eq pk 1.4 cm??? MV Area PHT 3.1 cm??? Mitral E Point Velocity 89.4 cm/s Mitral A Point Velocity 143.7 cm/s Mitral E to A Ratio 0.6 MV Deceleration Time 247.9 ms FINDINGS Left Ventricle Left ventricular ejection fraction is estimated at 55-60%. Moderately increased left ventricular diastolic volume. Moderately increased left ventricular systolic volume. Normal Left ventricular size, wall thickness, systolic function with no obvious regional wall motion abnormalities. Normal Left ventricular diastolic filling pattern. Right Ventricle Normal right ventricular size and function. Right ventricular systolic pressure within normal limits. Right Atrium Normal right atrial size. Left Atrium Mild LA dilatation Mitral Valve Structurally normal mitral valve. No evidence for mitral valve prolapse. No mitral stenosis. Mild mitral regurgitation. Aortic Valve Bioprosthetic aortic valve without stenosis with a peak velocity of 2.6 m/s, peak gradient 28 mmHg, mean gradient 18 mmHg, and estimated aortic valve area of 1.2 cm???. No central aortic regurgitation. Mild paravalvular aortic regurgitation. Tricuspid Valve Structurally normal tricuspid valve. No tricuspid stenosis. Trace to mild tricuspid regurgitation. Pulmonic Valve Pulmonic valve not well visualized. Pericardium No pericardial effusion. Aorta Aortic annulus normal. CONCLUSIONS Technically difficult study. LVEF 55 to 60% With regional wall motion abnormality Normal RV size and systolic function Mild left atrial dilatation. mild mitral regurgitation Bioprosthetic aortic valve with mean gradient of 18 mmHg, central regurgitation. Mild paravalvular leak Mild tricuspid regurgitation Previewed by: Dr Aron Trevino (Electronically Signed) Final Date: 03 January 2025 17:07
--- NOTE | 2025-01-03 17:11 | P.PN ---
Subjective Progress Note Date: 01/03/25 Patient is an 79-year-old male with past medical history significant for dysphagia, esophageal strictures with previous balloon dilation, hiatal hernia, GERD, recurrent pneumonias, asbestosis, hypertension, hyperlipidemia, aortic valve stenosis status post TAVR, and recent left shoulder replacement. Of note, patient has been treated on several occasions for recurrent pneumonias since June,. Chest CT from 07/15/2024 demonstrated patchy infiltrates throughout the right lung. Pleural-based calcifications along the right diaphragm. Patient does have ongoing issues with dysphagia, Schatzki ring, and previous balloon dilation. Most recent EGD done 11/29/2024 remarkable for mild acute on chronic esophagitis. No strictures, dysplasia. More recently, patient had a hospitalization November 2024 for recurrent right-sided pneumonia. Sputum was positive during a previous hospitalization for Serratia marcescens and Gretchen. He was discharged on December 18 with a combination of Levaquin and Diflucan. Patient brought into the emergency department yesterday evening. Chief complaint increased work of breathing over the last 24 hours. Also, increased bilateral lower extremity swelling since surgery on Tuesday. He had a left total shoulder arthroplasty. His left arm is in a sling. Workup in the emergency department including a chest x-ray redemonstratin similar patchy right lower lung field infiltrates, with diffuse interstitial infiltrates concerning for pulmonary edema or atypical pneumonia. CBC: WBC count 19.3, hemoglobin 11.7, platelets 236. CMP unremarkable, electrolytes WDL, creatinine 0.96, glucose 114. Lactic 2.3. LFTs not elevated. Troponin less than 0.012. NT proBNP el evated at 5170. Viral 4 Plex negative for influenza A/B, RSV, COVID. Patient currently being evaluated emergency department. He is awake and alert and able to answer questions appropriately. Reportedly was previously obtunded while in the ED. Brain CT did not show any acute intracranial findings. VBG with a pH of 7.4 and PCO2 43. Ammonia 10. He has been taking [place] 10-325 mg for his left postsurgical shoulder pain. Also, previously found to be hypotensive, recorded as low as 78/58 mmHg. Did 3 L crystalloid fluid bolus. Blood pressure improved, currently 112/62 mmHg. Patient states that over the last 24-48 hrs. she has had increased work of breathing. Denies any coughing, sputum production, hemoptysis, fevers or chills, pleuritic chest pain. Did undergo left shoulder surgery on Tuesday and has increased swelling in his legs bilaterally. Denies any chest pain, heart palpitations, syncopal events. Does report history of TAVR. Most recent available echocardiogram from 2021 estimating left ventricular ejection fraction of 50 to 55% with a bioprosthetic aortic valve with moderate perivalvular aortic regurgitation and mild mitral regurgitation. Does not routinely take diuretics on outpatient basis. Vital signs: Temperature 98.9 F, heart rate 58 bpm, blood pressure 114/63 mmHg, nontachypneic, SpO2 recorded at 98% on 3 L/min nasal cannula. On 01/03/2025, the patient is being seen for a follow-up. On today's evaluation, the patient is on room air oxygen. Feeling well. He remains on broad-spectrum antibiotics and the patient is currently on a combination of cefepime and vancomycin. Noted the patient's blood work showed elevation in the procalcitonin level. This is suggestive of bacterial infection/pneumonia. Initial procalcitonin level was at 14 and a subsequent level was 8.1. UA was negative. Viral screen was negative. The CBC from today shows a white cell count of 14.8 with a hemoglobin 9.8. The patient has no other new complaints otherwise for now. Antibiotic coverage remains unchanged. He is receiving Lasix 20 mg IV every 24 hours. A follow-up chest x-ray be obtained in AM. Otherwise, no other significant events. Blood cultures are sent and results are still pending for now. Objective - Vital Signs Vital signs: Vital Signs Temp 99.1 F 01/03/25 08:58 Pulse 61 01/03/25 08:58 Resp 19 01/03/25 08:58 BP 152/77 01/03/25 08:58 Pulse Ox 95 01/03/25 08:58 FiO2 Intake & Output 01/02/25 01/03/25 01/03/25 18:59 06:59 18:59 Intake Total 260 Output Total 850 Balance -590 Weight 74.389 kg 75 kg Intake: IV 260 Lactated Ringers 1,000 ml 260 @ 130 mls/hr IV .[id number] [facility] Rx#:[id number] Output: Urine 850 Other: # Voids 2 - Exam GENERAL EXAM: Alert, 79-year-old male, sitting up in bed, with left arm sling, comfortable in no apparent distress. HEAD: Normocephalic and atraumatic EYES: Normal reaction of pupils, equal size. NOSE: Clear with pink turbinates. THROAT: No erythema or exudates. NECK: No masses, no JVD. CHEST: No chest wall deformity. LUNGS: Equal air entry with right posterior lung wheezing/rhonchi. Left lung mostly clear with auscultation. On 3 L/min nasal cannula. No conversational dyspnea or accessory muscle use.. While at rest CVS: S1 and S2 normal with grade 2 systolic murmur, regular rhythm. No other ext ra heart sounds ABDOMEN: No hepatosplenomegaly, active bowel sounds, no guarding or rigidity. SPINE: No scoliosis or deformity SKIN: No rashes CENTRAL NERVOUS SYSTEM: No focal deficits, tone is normal in all 4 extremities. EXTREMITIES: Left arm in a sling, postsurgical incision approximated clean and dry. There is 2+ bilateral lower extremity edema. No clubbing or cyanosis. Peripheral pulses are intact - Labs CBC & Chem 7: 01/03/25 05:48 01/03/25 05:48 Labs: Abnormal Lab Results - Last 24 Hours (Table) 01/03/25 Range/Units 05:48 WBC 14.87 H (4.50-10.00) 10*3/uL RBC 3.50 L (4.40-5.60) 10*6/uL Hgb 9.8 L D (13.0-17.0) g/dL Hct 30.5 L (39.6-50.0) % Immature Gran # 0.09 H (0.00-0.04) 10*3/uL Neutrophils # 12.75 H (1.80-7.70) 10*3/uL Lymphocytes # 0.84 L (0.90-5.00) 10*3/uL Monocytes # 1.03 H (0.20-1.00) 10*3/uL Microbiology - Last 24 Hours (Table) 01/01/25 20:57 Blood Culture - Preliminary Blood Assessment and Plan Assessment: right-sided pneumonia, sputum culture previously positive for Gretchen and Serratia marcescens on 11/28/2024, patient has had repeat hospitalization, most recently discharged on December 18 with a combination of oral Levaquin and Diflucan. Repeat chest x-ray showing redemonstration of similar patchy right lower lung field infiltrates, with more diffuse interstitial infiltrates concerning for pulmonary edema or atypical pneumonia. NT-proBNP 5170. Viral 4 Plex negative for influenza A/B, RSV, COVID. Procalcitonin level was quite elevated and is not an improving trend in the patient's suspected bacterial pneumonia and the patient is A Combination of Cefepime and Vancomycin. Oxygenation Stable and the Patient Remains on Room Air Oxygen. Suspect acute CHF exacerbation, with unknown ejection fraction, currently on Lasix 20 mg IV every 24 hours Recurrent dysphagia with a history of esophageal strictures and Schatzki ring, most recent undergoing balloon dilation May,. Repeat EGD done On 11/29/2024 remarkable findings for mild esophagitis. No noted esophageal strictures, hernias. 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 Check procalcitonin level was elevated at time of admission and it is downtrending Obtain repeat transthoracic echocardiogram Add gentle diuresis, currently on Lasix 20 mg every 24 hours Lactic acid level improved Awaiting blood culture results Awaiting repeat echocardiogram No new complaints otherwise for now. Clinically and hemodynamically stable. Repeat chest x-ray in the morning we will continue to follow Time with Patient: Greater than 30
--- NOTE | 2025-01-03 18:46 | P.PN ---
Progress Note - Text Progress Note Date: 01/03/25 Chief Complaint: Short of breath Very pleasant 79-year-old male , follows with Dr. Stewart Ramos. Manager Department Dr. Oliveira and lean consultant Dr. Monson. Medical conditions include GERD, hypertension, hyperlipidemia, osteoarthritis, esophageal stricture constriction in the past, aortic valve stenosis, restless leg syndrome. Chronic back pain from a fall in his younger days. Ex-smoker. EGD with Dr. Spring on November 29. No stricture found Patient felt other sleepy all day. Tired. Also short of breath cough sputum production. Drenched in sweat. deCreased appetite yesterday. Until day before he has been active.. Doing his work. 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 Also active in his [employer] business January 03: More awake. Holding a good conversation. Breathing better. Slight cough. Remains on IV cefepime and vancomycin. Up to bathroom. Reminded to use incentive spirometry. Discussed with the patient and the . Active Medications Acetaminophen (Acetaminophen Tab 325 Mg Tab) 650 mg PO Q6HR PRN PRN Reason: Mild Pain or Fever > 100.5 Hydrocodone Bitart/Acetaminophen (Hydrocodone/Apap 10-325mg 1 Each Tab) 1 each PO Q6H PRN PRN Reason: Pain Last Admin: 01/03/25 09:06 Dose: 1 each Albuterol Sulfate (Albuterol Nebulized 2.5 Mg/3 Ml) 2.5 mg INHALATION RT-Q4H PRN PRN Reason: Shortness Of Breath Albuterol/Ipratropium (Ipratropium-Albuterol 3 Ml Neb) 3 ml INHALATION RT-QID [facility] Last Admin: 01/03/25 15:52 Dose: 3 ml Aspirin (Aspirin 81 Mg) 81 mg PO BID [facility] Last Admin: 01/03/25 09:06 Dose: 81 mg Atorvastatin Calcium (Atorvastatin 20 Mg Tab) 20 mg PO DAILY [facility] Last Admin: 01/03/25 09:06 Dose: 20 mg Ezetimibe (Ezetimibe 10 Mg Tab) 10 mg PO DAILY [facility] Last Admin: 01/03/25 09:06 Dose: 10 mg Furosemide (Furosemide 10 Mg/Ml 2 Ml Vial) 20 mg IV DAILY [facility] Last Admin: 01/03/25 09:06 Dose: 20 mg Gabapentin (Gabapentin 400 Mg Cap) 400 mg PO QID [facility] Last Admin: 01/03/25 12:38 Dose: 400 mg Cefepime HCl 2 gm/ Sodium (Chloride) 100 mls @ 25 mls/hr IVPB Q12H [facility]; Protocol Last Admin: 01/03/25 09:05 Dose: 25 mls/hr Vancomycin HCl 1,250 mg/ (Sodium Chloride) 250 mls @ 125 mls/hr IVPB Q16H [facility] Last Admin: 01/03/25 05:26 Dose: 125 mls/hr Lisinopril (Lisinopril 20 Mg Tab) 20 mg PO DAILY [facility] Last Admin: 01/03/25 09:06 Dose: 20 mg Metoprolol Tartrate (Metoprolol Tartrate 25 Mg Tab) 25 mg PO BID [facility] Last Admin: 01/03/25 09:06 Dose: 25 mg Miscellaneous Information (Vancomycin Trough Due 1 Each Misc) 0 each MISCELLANE DIRECTED ONE Stop: 01/04/25 13:01 Modafinil (Modafinil 200 Mg Tab) 200 mg PO DAILY [facility] Last Admin: 01/03/25 07:49 Dose: Not Given Morphine Sulfate (Morphine Sulfate 4 Mg/Ml Syringe) 4 mg IV Q4HR PRN PRN Reason: Severe Pain (Scale 7 to 10) Naloxone HCl (Naloxone 0.4 Mg/Ml 1 Ml Vial) 0.2 mg IV Q2M PRN PRN Reason: Opioid Reversal Ondansetron HCl (Ondansetron 4 Mg/2 Ml Vial) 4 mg IVP Q8HR PRN PRN Reason: Nausea And Vomiting Pantoprazole Sodium (Pantoprazole 40 Mg Tablet) 40 mg PO DAILY [facility] Last Admin: 01/03/25 09:09 Dose: 40 mg Pramipexole Dihydrochloride (Pramipexole 0.5 Mg Tab) 0.5 mg PO HS [facility] Last Admin: 01/02/25 21:38 Dose: 0.5 mg Ropinirole HCl (Ropinirole Hcl 4 Mg Tablet) 4 mg PO BID [facility] Last Admin: 01/03/25 09:05 Dose: 4 mg Social history: Smoked less than a pack half a pack a day for 20 years stopped about 40 years ago. 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 . Physical examination: VITAL SIGNS: 98.5, 61, 18, 149 x 76, 92% room air GENERAL: BMI 28.2, resting bed, more awake EYES: Pupils equal. Conjunctiva hugh l. HEENT: External appearance of nose and ears normal, oral cavity grossly normal. NECK: JVD not raised; masses not palpable. HEART: First and second heart sounds are normal; no edema. LUNGS: Respiratory rate and increased, coarse breath sounds on the right side., ABDOMEN: Soft, nontender, liver spleen not palpable, no masses palpable. PSYCH: Able to answer questions appropriately n MUSCULOSKELETAL:No Clubbing/cyanosis;muscles-grossly intact. OA. Limited range of motion left shoulder. Left arm in a sling INVESTIGATIONS, reviewed in the clinical context: January 03: White count 14.8 hemoglobin 9.8 UA: Negative 6 influenza type A, type B, RSV, SARS-CoV-2: Not detected . : White count 19.2 hemoglobin 11.7 platelets 236 sodium 137 potassium 5.1 BUN 35 creatinine 0.96 Lactic acid 1.9, 2.3 Procalcitonin 14.2 EKG tracing personally reviewed by me-normal sinus rhythm. Abnormal T waves inferior lateral leads CT brain: Nothing acute Chest x-ray film personally reviewed by me-scattered infiltrates Assessment plan: - multilobar pneumonia suspect gram-negative organism, recurrent episode pneumonia: Improving [Presented with cough short of breath sputum production, heavy perspiration) IV cefepime vancomycin Nasal screen for MRSA -History of dysphagia. Patient is at multiple esophageal dilatation in the past. Dr. Spring did EGD November 2024. No stricture identified -Given recurrent pneumonia, check immune deficiency panel -Restless leg syndrome Requip 4 mg twice daily -Chronic low back pain from prior injury Neurontin 400 mg 3 times daily as needed. Mobic. [place] 10. - Left shoulder dysfunction. Being followed by orthopedics outpatient Left arm in a sling -COPD in a previous smoker DuoNeb 3 times daily -GERD Lansoprazole 30 mg daily -Essential hypertension, Zestril Lopressor -Hyperlipidemia Zetia 10 mg a day -Full code Diet. Up in the chair. Incentive spirometry. Continue antibiotics. Past Medical History Past Medical History: Heart Failure, GERD/Reflux, Hyperlipidemia, Hypertension, Musculoskeletal Disorder, Osteoarthritis (OA) Additional Past Medical History / Comment(s): esophageal constriction in the past, aortic valve stenosis, RLS, past hx. of compression fx. in back after a fall, chronic back pain, dry cough - has seen Dr. 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, Left Shoulder reverse replacement Past Anesthesia/Blood Transfusion Reactions: No Reported Reaction Past Psychological History: No Psychological Hx Reported Smoking Status: Former smoker Past Alcohol Use History: Occasional Past Drug Use History: None Reported
[2025-01-03] MEDS: ACETAMINOPHEN TAB 325 MG TAB PO PRN (20:27)
[2025-01-04] MEDS: FUROSEMIDE 10 MG/ML 2 ML VIAL IV SCH (09:02)
--- NOTE | 2025-01-04 09:47 | P.PN ---
Subjective Progress Note Date: 01/04/25 Consult reason: congestive heart failure History of present illness: This is an 79-year-old male patient of Dr. Oliveira with past medical history of hypertension, hyperlipidemia, severe aortic stenosis status post TAVR, CAD. We have been asked to evaluate the patient for heart failure. Patient states that on Tuesday morning he had minimal shortness of breath. He did sleep all day and was feeling some sweats and a cough. He denies any sick contacts. He does complain of pain with deep breathing. No lower extremity edema but he has had this in the past. He states that he has been eating and drinking okay. Patient recently had surgery on his left shoulder 2 weeks ago and is wearing a sling. Blood pressure 157/70, heart rate 64, pulse ox 94% on room air. Patient has been started on IV Lasix 20 mg daily as well as IV antibiotics. Patient states that he is feeling much better at the time of this evaluation. -EKG: Sinus rhythm with T wave inversion -Chest x-ray: Diffuse worsening infiltrate. Correlate for pulmonary edema and congestive heart failure. Differential includes pneumonia, atypical pneumonia. -CT brain: No acute process. -Laboratory studies: WBC initially 19.2 now 14.8, hemoglobin 9.8, creatinine 0.82, troponin negative x 1, proBNP 5170. Procalcitonin 14.2. Cepheid viral panel not detected. Urinalysis negative. -Home cardiac medications: Aspirin 81 mg twice daily, Zetia 10 mg daily, lisinopril 20 mg daily, metoprolol tartrate 25 mg twice daily, rosuvastatin 10 mg daily. -Echocardiogram performed in the office on 03/05/2024 revealed EF 50 to 55%, moderate LVH. Aortic valve prosthetic mechanical dysfunction. Mild to moderate mitral regurgitation. Mild tricuspid regurgitation. Normal PASP 25. Trace to mild pulmonic regurgitation. Cardiac catheterization performed 11/18/2021 revealed calcified coronary arteries and aortic valve. Severe aortic stenosis. Mild triple-vessel disease / Patient seen and examined. Patient continues to have lower extremity edema. He has been on IV Lasix 20 mg daily. Will plan to increase just to twice daily. No shortness of breath. Patient appears to be comfortable. He denies chest pain or chest pressure. Blood pressure 156/69, heart rate 75, pulse ox 92% on room air. No repeat blood work today. Echocardiogram reveals EF 55 to 60%, mild left atrial dilatation, mild mitral regurgitation, bioprosthetic aortic valve with mean gradient 18 mmHg, central regurgitation. Mild paravalvular leak. Mild tricuspid regurgitation. Blood culture shows no growth at 48 hours. Physical examination: Gen: This is an 79-year-old male in no acute distress. VS: reviewed HEENT: Head is atraumatic, normocephalic. Pupils equal, round. Sclerae is anicteric. NECK: Supple. No JVD. LUNGS: Clear to auscultation. No wheezes or rhonchi. No intercostal retractions. HEART: Regular rate and rhythm. Systolic murmur. ABDOMEN: Soft No tenderness. EXTREMITIES: No pedal edema. No calf tenderness. NEUROLOGICAL: Patient is awake, alert and oriented x3. Assessment: Acute diastolic heart failure Possible pneumonia Anemia Hypertension Hyperlipidemia Severe aortic stenosis status post TAVR Mild triple-vessel coronary artery disease by cardiac catheterization Recent left shoulder surgery Plan: Resume patient's home cardiac medications Continue patient on IV Lasix 20 mg and increase frequency to twice daily Monitor PATRICA, daily weights, electrolytes and renal function Further recommendations to follow based upon clinical course Nurse practitioner note has been reviewed, I agree with documented findings and plan of care. Patient was seen and examined. Objective - Vital Signs Vital signs: Vital Signs Temp 97.7 F 01/04/25 03:54 Pulse 56 L 01/04/25 03:54 Resp 18 01/04/25 03:54 BP 131/92 01/04/25 03:54 Pulse Ox 98 01/04/25 03:54 FiO2 Intake & Output 01/03/25 01/04/25 01/04/25 18:59 06:59 18:59 Intake Total 240 Balance 240 Weight 73.3 kg Intake: Oral 240 Other: # Voids 2 - Labs CBC & Chem 7: 01/03/25 05:48 01/03/25 05:48 Labs: Microbiology - Last 24 Hours (Table) 01/01/25 20:57 Blood Culture - Preliminary Blood
--- NOTE | 2025-01-04 12:11 | XR ---
EXAMINATION TYPE: XR chest 1V portable DATE OF EXAM: 01/04/2025 CLINICAL INDICATION: Male, 79 years old with history of dyspnea, progress study. TECHNIQUE: Single AP portable upright view of the chest is obtained. COMPARISON: Chest x-ray from 3 days earlier FINDINGS: There is cardiomegaly with atherosclerotic thoracic aorta. There is increasing central vas cular congestion and bilateral interstitial edema. More focal consolidation right lung base noted. De formity right humeral head is redemonstrated. IMPRESSION: Findings suggest worsening CHF exacerbation/fluid overload state . Cannot exclude devel oping acute infiltrate in the right lung base. [facility], , 01/04/2025 12:09 PM
[2025-01-04] MEDS: VANCOMYCIN TROUGH DUE 1 EACH MISC MISCELLANE ONE (12:54)
[2025-01-04 13:14] LABS: African American GFR (CKD) >90 (>60 ml/min/1.73 sqM); Non-African American GFR(CKD) >90 (>60 ml/min/1.73 sqM)
[2025-01-04 13:38] LABS: T4/T8 Ratio (CD4:CD8) 2.8 (1.0-3.7)
--- NOTE | 2025-01-04 17:00 | P.PN ---
Progress Note - Text Progress Note Date: 01/04/25 Chief Complaint: Short of breath Very pleasant 79-year-old male , follows with Dr. Stewart Ramos. Library Clerical Assistant Dr. Oliveira and electrical and instrumentation manager Dr. Monson. Medical conditions include GERD, hypertension, hyperlipidemia, osteoarthritis, esophageal stricture constriction in the past, aortic valve stenosis, restless leg syndrome. Chronic back pain from a fall in his younger days. Ex-smoker. EGD with Dr. Spring on November 29. No stricture found Patient felt other sleepy all day. Tired. Also short of breath cough sputum production. Drenched in sweat. deCreased appetite yesterday. Until day before he has been active.. Doing his work. 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 Holding a good conversation. Breathing better. Slight cough. Remains on IV cefepime and vancomycin. Up to bathroom. Reminded to use incentive spirometry. Discussed with the patient and the . January 04: Breathing continues to improve. Cough improved. Minimal sputum. Eating better. Has been up in bed. MRSA nasal screen negative. DC vancomycin. Has been ambulating Active Medications Acetaminophen (Acetaminophen Tab 325 Mg Tab) 650 mg PO Q6HR PRN PRN Reason: Mild Pain or Fever > 100.5 Last Admin: 01/03/25 20:27 Dose: 650 mg Hydrocodone Bitart/Acetaminophen (Hydrocodone/Apap 10-325mg 1 Each Tab) 1 each PO Q6H PRN PRN Reason: Pain Last Admin: 01/04/25 09:01 Dose: 1 each Albuterol Sulfate (Albuterol Nebulized 2.5 Mg/3 Ml) 2.5 mg INHALATION RT-Q4H PRN PRN Reason: Shortness Of Breath Albuterol/Ipratropium (Ipratropium-Albuterol 3 Ml Neb) 3 ml INHALATION RT-QID [facility] Last Admin: 01/04/25 15:42 Dose: 3 ml Aspirin (Aspirin 81 Mg) 81 mg PO BID [facility] Last Admin: 01/04/25 09:07 Dose: 81 mg Atorvastatin Calcium (Atorvastatin 20 Mg Tab) 20 mg PO DAILY [facility] Last Admin: 01/04/25 09:02 Dose: 20 mg Ezetimibe (Ezetimibe 10 Mg Tab) 10 mg PO DAILY [facility] Last Admin: 01/04/25 09:02 Dose: 10 mg Furosemide (Furosemide 10 Mg/Ml 2 Ml Vial) 20 mg IV BID [facility] Last Admin: 01/04/25 09:02 Dose: 20 mg Gabapentin (Gabapentin 400 Mg Cap) 400 mg PO QID [facility] Last Admin: 01/04/25 13:42 Dose: 400 mg Cefepime HCl 2 gm/ Sodium (Chloride) 100 mls @ 25 mls/hr IVPB Q8H [facility]; Protocol Lisinopril (Lisinopril 20 Mg Tab) 20 mg PO DAILY [facility] Last Admin: 01/04/25 09:02 Dose: 20 mg Metoprolol Tartrate (Metoprolol Tartrate 25 Mg Tab) 25 mg PO BID [facility] Last Admin: 01/04/25 09:08 Dose: 25 mg Modafinil (Modafinil 200 Mg Tab) 200 mg PO DAILY [facility] Last Admin: 01/04/25 09:03 Dose: Not Given Morphine Sulfate (Morphine Sulfate 4 Mg/Ml Syringe) 4 mg IV Q4HR PRN PRN Reason: Severe Pain (Scale 7 to 10) Naloxone HCl (Naloxone 0.4 Mg/Ml 1 Ml Vial) 0.2 mg IV Q2M PRN PRN Reason: Opioid Reversal Ondansetron HCl (Ondansetron 4 Mg/2 Ml Vial) 4 mg IVP Q8HR PRN PRN Reason: Nausea And Vomiting Pantoprazole Sodium (Pantoprazole 40 Mg Tablet) 40 mg PO DAILY [facility] Last Admin: 01/04/25 09:02 Dose: 40 mg Pramipexole Dihydrochloride (Pramipexole 0.5 Mg Tab) 0.5 mg PO HS [facility] Last Admin: 01/03/25 22:12 Dose: 0.5 mg Ropinirole HCl (Ropinirole Hcl 4 Mg Tablet) 4 mg PO BID [facility] Last Admin: 01/04/25 09:04 Dose: 4 mg Social history: Smoked less than a pack half a pack a day for 20 years stopped about 40 years ago. 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 . Physical examination: VITAL SIGNS: 98, 76, 18, 128 x 69, 95% room air GENERAL: BMI 28.2, resting bed, more awake EYES: Pupils equal. Conjunctiva hugh l. HEENT: External appearance of nose and ears normal, oral cavity grossly normal. NECK: JVD not raised; masses not palpable. HEART: First and second heart sounds are normal; no edema. LUNGS: Respiratory rate normal d, improved air entry ABDOMEN: Soft, nontender, liver spleen not palpable, no masses palpable. PSYCH: Able to answer questions appropriately n MUSCULOSKELETAL:No Clubbing/cyanosis;muscles-grossly intact. OA. Limited range of motion left shoulder. Left arm in a sling INVESTIGATIONS, reviewed in the clinical context: January 03: White count 14.8 hemoglobin 9.8 UA: Negative 6 influenza type A, type B, RSV, SARS-CoV-2: Not detected . : White count 19.2 hemoglobin 11.7 platelets 236 sodium 137 potassium 5.1 BUN 35 creatinine 0.96 Lactic acid 1.9, 2.3 Procalcitonin 14.2 EKG tracing personally reviewed by me-normal sinus rhythm. Abnormal T waves inferior lateral leads CT brain: Nothing acute Chest x-ray film personally reviewed by me-scattered infiltrates Assessment plan: - multilobar pneumonia suspect gram-negative organism, recurrent episode pneumonia: Clinically much better [Presented with cough short of breath sputum production, heavy perspiration) IV cefepime Nasal screen for MRSA negative. Stop vancomycin -History of dysphagia. Patient is at multiple esophageal dilatation in the past. Dr. Spring did EGD November 2024. No stricture identified -Given recurrent pneumonia, check immune deficiency panel -Restless leg syndrome Requip 4 mg twice daily -Chronic low back pain from prior injury Neurontin 400 mg 3 times daily as needed. Mobic. [place] 10. - Left shoulder dysfunction. Being followed by orthopedics outpatient Left arm in a sling -COPD in a previous smoker DuoNeb 3 times daily -GERD Lansoprazole 30 mg daily -Essential hypertension, Zestril Lopressor -Hyperlipidemia Zetia 10 mg a day -Full code Clinically doing much better. 2 chest x-ray report some worsening. On room air 95%. Past Medical History Past Medical History: Heart Failure, GERD/Reflux, Hyperlipidemia, Hypertension, Musculoskeletal Disorder, Osteoarthritis (OA) Additional Past Medical History / Comment(s): esophageal constriction in the pas t, aortic valve stenosis, RLS, past hx. of compression fx. in back after a fall, chronic back pain, dry cough - has seen Dr. 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, Left Shoulder reverse replacement Past Anesthesia/Blood Transfusion Reactions: No Reported Reaction Past Psychological History: No Psychological Hx Reported Smoking Status: Former smoker Past Alcohol Use History: Occasional Past Drug Use History: None Reported
[2025-01-04] MEDS: CEFEPIME 2 GM in SODIUM CHLORIDE 0.9% 100 ML IVPB SCH (18:03)
--- NOTE | 2025-01-04 20:40 | P.PN ---
Subjective Progress Note Date: 01/04/25 Patient is an 79-year-old male with past medical history significant for dysphagia, esophageal strictures with previous balloon dilation, hiatal hernia, GERD, recurrent pneumonias, asbestosis, hypertension, hyperlipidemia, aortic valve stenosis status post TAVR, and recent left shoulder replacement. Of note, patient has been treated on several occasions for recurrent pneumonias since June,. Chest CT from 07/15/2024 demonstrated patchy infiltrates throughout the right lung. Pleural-based calcifications along the right diaphragm. Patient does have ongoing issues with dysphagia, Schatzki ring, and previous balloon dilation. Most recent EGD done 11/29/2024 remarkable for mild acute on chronic esophagitis. No strictures, dysplasia. More recently, patient had a hospitalization November 2024 for recurrent right-sided pneumonia. Sputum was positive during a previous hospitalization for Serratia marcescens and Gretchen. He was discharged on December 18 with a combination of Levaquin and Diflucan. Patient brought into the emergency department yesterday evening. Chief complaint increased work of breathing over the last 24 hours. Also, increased bilateral lower extremity swelling since surgery on Tuesday. He had a left total shoulder arthroplasty. His left arm is in a sling. Workup in the emergency department including a chest x-ray redemonstratin similar patchy right lower lung field infiltrates, with diffuse interstitial infiltrates concerning for pulmonary edema or atypical pneumonia. CBC: WBC count 19.3, hemoglobin 11.7, platelets 236. CMP unremarkable, electrolytes WDL, creatinine 0.96, glucose 114. Lactic 2.3. LFTs not elevated. Troponin less than 0.012. NT proBNP el evated at 5170. Viral 4 Plex negative for influenza A/B, RSV, COVID. Patient currently being evaluated emergency department. He is awake and alert and able to answer questions appropriately. Reportedly was previously obtunded while in the ED. Brain CT did not show any acute intracranial findings. VBG with a pH of 7.4 and PCO2 43. Ammonia 10. He has been taking [place] 10-325 mg for his left postsurgical shoulder pain. Also, previously found to be hypotensive, recorded as low as 78/58 mmHg. Did 3 L crystalloid fluid bolus. Blood pressure improved, currently 112/62 mmHg. Patient states that over the last 24-48 hrs. she has had increased work of breathing. Denies any coughing, sputum production, hemoptysis, fevers or chills, pleuritic chest pain. Did undergo left shoulder surgery on Tuesday and has increased swelling in his legs bilaterally. Denies any chest pain, heart palpitations, syncopal events. Does report history of TAVR. Most recent available echocardiogram from 2021 estimating left ventricular ejection fraction of 50 to 55% with a bioprosthetic aortic valve with moderate perivalvular aortic regurgitation and mild mitral regurgitation. Does not routinely take diuretics on outpatient basis. Vital signs: Temperature 98.9 F, heart rate 58 bpm, blood pressure 114/63 mmHg, nontachypneic, SpO2 recorded at 98% on 3 L/min nasal cannula. On 01/03/2025, the patient is being seen for a follow-up. On today's evaluation, the patient is on room air oxygen. Feeling well. He remains on broad-spectrum antibiotics and the patient is currently on a combination of cefepime and vancomycin. Noted the patient's blood work showed elevation in the procalcitonin level. This is suggestive of bacterial infection/pneumonia. Initial procalcitonin level was at 14 and a subsequent level was 8.1. UA was negative. Viral screen was negative. The CBC from today shows a white cell count of 14.8 with a hemoglobin 9.8. The patient has no other new complaints otherwise for now. Antibiotic coverage remains unchanged. He is receiving Lasix 20 mg IV every 24 hours. A follow-up chest x-ray be obtained in AM. Otherwise, no other significant events. Blood cultures are sent and results are still pending for now. On 01/04/2025, the patient is being seen for a follow-up. The patient is on room air oxygen. Feeling well. Hemodynamically stable. Sputum culture still pend ing. The patient is covered with empiric antibiotics and the patient remains on a combination of cefepime and vancomycin. A repeat chest x-ray was done today and the patient continues to have a stable bibasilar patchy bilateral pulmonary infiltrates, essentially unchanged compared to earlier evaluation. Clinically however, the patient is feeling well. Noted there may be also component of CHF on top of his pneumonia. The white cell count is at 14.8 from yesterday which is improving. Hemoglobin is at 9.8, and the platelet count is at 220. Creatinine is normal. Procalcitonin level was downtrending. The patient has no other new complaints for now. He is on IV Lasix 20 mg every 12 hours. He remains on bronchodilators. Rest of the medications from home has been resumed. Echocardiogram that was done on 01/02/2025 showed a preserved LV function with an EF of around 55 to 60%. There is no evidence of any wall motion abnormality. Moderate concentric LVH. Normal RV systolic pressure. If the patient has a bioprosthetic aortic valve with mild paravalvular leak without evidence of any stenosis. Objective - Vital Signs Vital signs: Vital Signs Temp 98.6 F 01/04/25 08:41 Pulse 75 01/04/25 08:41 Resp 18 01/04/25 08:41 BP 156/69 01/04/25 08:41 Pulse Ox 92 L 01/04/25 08:41 FiO2 Intake & Output 01/03/25 01/04/25 01/04/25 18:59 06:59 18:59 Intake Total 240 5 Balance 240 5 Weight 73.3 kg Intake: IV 5 Invasive Line 2 5 Oral 240 Other: # Voids 2 - Exam GENERAL EXAM: Alert, 79-year-old male, sitting up in bed, with left arm sling, comfortable in no apparent distress. The patient is currently on room air oxygen HEAD: Normocephalic and atraumatic EYES: Normal reaction of pupils, equal size. NOSE: Clear with pink turbinates. THROAT: No erythema or exudates. NECK: No masses, no JVD. CHEST: No chest wall deformity. LUNGS: Equal air entry with right posterior lung wheezing/rhonchi. Left lung mostly clear with auscultation. No conversational dyspnea or accessory muscle use.. While at rest CVS: S1 and S2 normal with grade 2 systolic murmur, regular rhythm. No other extra heart sounds ABDOMEN: No hepatosplenomegaly, active bowel sounds, no guarding or rigidity. SPINE: No scoliosis or deformity SKIN: No rashes CENTRAL NERVOUS SYSTEM: No focal deficits, tone is normal in all 4 extremities. EXTREMITIES: Left arm in a sling, postsurgical incision approximated clean and dry. There is 2+ bilateral lower extremity edema. No clubbing or cyanosis. Peripheral pulses are intact - Labs CBC & Chem 7: 01/03/25 05:48 01/04/25 12:48 Labs: Microbiology - Last 24 Hours (Table) 01/02/25 21:19 Nasal Screen MRSA/MSSA - Final Nasal Swab 01/01/25 20:57 Blood Culture - Preliminary Blood Assessment and Plan Assessment: Bilateral lower lobe pneumonia right more than left. The patient has developed recurrent pneumonia. The patient was hospitalized in the past for a right-sided pneumonia, sputum culture previously positive for Gretchen and Serratia marcescens on 11/28/2024, patient has had repeat hospitalization, most recently discharged on December 18 with a combination of oral Levaquin and Diflucan. Repeat chest x-ray showing redemonstration of similar patchy right lower lung field infiltrates, with more diffuse interstitial infiltrates concerning for pulmonary edema or atypical pneumonia. NT-proBNP 5170. Viral 4 Plex negative for influenza A/B, RSV, COVID. Procalcitonin level was quite elevated and is not an improving trend in the patient's suspected bacterial pneumonia was treated with a combination of cefepime and vancomycin. Acute CHF exacerbation, with unknown ejection fraction, currently on Lasix 20 mg IV every 24 hours, echocardiogram shows a preserved LV function, normal functioning aortic valve without evidence of any stenosis with mild paravalvular leak. Recurrent dysphagia with a history of esophageal strictures and Schatzki ring, most recent undergoing balloon dilation May,. Repeat EGD done On 11/29/2024 remarkable findings for mild esophagitis. No noted esophageal strictures, hernias. 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 History of hiatal hernia History of gastroesophageal reflux disease Hypertension History of hyperlipidemia History of aortic valve stenosis status post transcatheter aortic valve replacement History of left shoulder replacement Former tobacco smoker Plan: Room air oxygen, clinically stable improving. However, chest x-ray continues to show patchy lower lobe bilateral pulm infiltrates. Continue empiric antibiotics, received doses of vancomycin and and cefepime in the ED. Check procalcitonin level was elevated at time of admission and it is downtrending Echocardiogram was noted Continue on Lasix 20 mg every 24 hours Lactic acid level improved Awaiting blood culture results, negative thus far Repeat chest x-ray in the morning No new complaints otherwise for now. Clinically and hemodynamically stable. will continue to follow
[2025-01-04] MEDS: MELATONIN 3 MG TABLET PO PRN (23:16)
[2025-01-05] MEDS ORDERED: VANCOMYCIN 1,250 MG in SODIUM CHLORIDE 0.9% 250 ML IVPB SCH (02:00)
[2025-01-05 09:24] LABS: African American GFR (CKD) >90 (>60 ml/min/1.73 sqM); Non-African American GFR(CKD) >90 (>60 ml/min/1.73 sqM)
--- NOTE | 2025-01-05 09:58 | XR ---
EXAMINATION TYPE: XR chest 1V DATE OF EXAM: 01/05/2025 4:59 AM COMPARISON: None. CLINICAL INDICATION: Male, 79 years old with history of Pneumonia follow-up, TECHNIQUE: XR chest 1V view(s) obtained. FINDINGS: The heart size is normal. The pulmonary vasculature is normal. Patchy infiltrates are present bilaterally. Correlate for mildly improving pulmonary edema. Atypical pneumonia could be considered. Focal findings are improving at the right base. IMPRESSION: 1. Mild diffuse pulmonary edema appears improved from comparison. 2. Patchy infiltrates present which may be related to pulmonary edema. Atypical pneumonia however kathy uld be considered. Continued follow-up is recommended [facility], , 01/05/2025 9:56 AM
--- NOTE | 2025-01-05 12:26 | P.PN ---
Subjective Progress Note Date: 01/05/25 Patient is an 79-year-old male with past medical history significant for dysphagia, esophageal strictures with previous balloon dilation, hiatal hernia, GERD, recurrent pneumonias, asbestosis, hypertension, hyperlipidemia, aortic valve stenosis status post TAVR, and recent left shoulder replacement. Of note, patient has been treated on several occasions for recurrent pneumonias since June,. Chest CT from 07/15/2024 demonstrated patchy infiltrates throughout the right lung. Pleural-based calcifications along the right diaphragm. Patient does have ongoing issues with dysphagia, Schatzki ring, and previous balloon dilation. Most recent EGD done 11/29/2024 remarkable for mild acute on chronic esophagitis. No strictures, dysplasia. More recently, patient had a hospitalization November 2024 for recurrent right-sided pneumonia. Sputum was positive during a previous hospitalization for Serratia marcescens and Gretchen. He was discharged on December 18 with a combination of Levaquin and Diflucan. Patient brought into the emergency department yesterday evening. Chief complaint increased work of breathing over the last 24 hours. Also, increased bilateral lower extremity swelling since surgery on Tuesday. He had a left total shoulder arthroplasty. His left arm is in a sling. Workup in the emergency department including a chest x-ray redemonstratin similar patchy right lower lung field infiltrates, with diffuse interstitial infiltrates concerning for pulmonary edema or atypical pneumonia. CBC: WBC count 19.3, hemoglobin 11.7, platelets 236. CMP unremarkable, electrolytes WDL, creatinine 0.96, glucose 114. Lactic 2.3. LFTs not elevated. Troponin less than 0.012. NT proBNP el evated at 5170. Viral 4 Plex negative for influenza A/B, RSV, COVID. Patient currently being evaluated emergency department. He is awake and alert and able to answer questions appropriately. Reportedly was previously obtunded while in the ED. Brain CT did not show any acute intracranial findings. VBG with a pH of 7.4 and PCO2 43. Ammonia 10. He has been taking [place] 10-325 mg for his left postsurgical shoulder pain. Also, previously found to be hypotensive, recorded as low as 78/58 mmHg. Did 3 L crystalloid fluid bolus. Blood pressure improved, currently 112/62 mmHg. Patient states that over the last 24-48 hrs. she has had increased work of breathing. Denies any coughing, sputum production, hemoptysis, fevers or chills, pleuritic chest pain. Did undergo left shoulder surgery on Tuesday and has increased swelling in his legs bilaterally. Denies any chest pain, heart palpitations, syncopal events. Does report history of TAVR. Most recent available echocardiogram from 2021 estimating left ventricular ejection fraction of 50 to 55% with a bioprosthetic aortic valve with moderate perivalvular aortic regurgitation and mild mitral regurgitation. Does not routinely take diuretics on outpatient basis. Vital signs: Temperature 98.9 F, heart rate 58 bpm, blood pressure 114/63 mmHg, nontachypneic, SpO2 recorded at 98% on 3 L/min nasal cannula. On 01/03/2025, the patient is being seen for a follow-up. On today's evaluation, the patient is on room air oxygen. Feeling well. He remains on broad-spectrum antibiotics and the patient is currently on a combination of cefepime and vancomycin. Noted the patient's blood work showed elevation in the procalcitonin level. This is suggestive of bacterial infection/pneumonia. Initial procalcitonin level was at 14 and a subsequent level was 8.1. UA was negative. Viral screen was negative. The CBC from today shows a white cell count of 14.8 with a hemoglobin 9.8. The patient has no other new complaints otherwise for now. Antibiotic coverage remains unchanged. He is receiving Lasix 20 mg IV every 24 hours. A follow-up chest x-ray be obtained in AM. Otherwise, no other significant events. Blood cultures are sent and results are still pending for now. On 01/04/2025, the patient is being seen for a follow-up. The patient is on room air oxygen. Feeling well. Hemodynamically stable. Sputum culture still pend ing. The patient is covered with empiric antibiotics and the patient remains on a combination of cefepime and vancomycin. A repeat chest x-ray was done today and the patient continues to have a stable bibasilar patchy bilateral pulmonary infiltrates, essentially unchanged compared to earlier evaluation. Clinically however, the patient is feeling well. Noted there may be also component of CHF on top of his pneumonia. The white cell count is at 14.8 from yesterday which is improving. Hemoglobin is at 9.8, and the platelet count is at 220. Creatinine is normal. Procalcitonin level was downtrending. The patient has no other new complaints for now. He is on IV Lasix 20 mg every 12 hours. He remains on bronchodilators. Rest of the medications from home has been resumed. Echocardiogram that was done on 01/02/2025 showed a preserved LV function with an EF of around 55 to 60%. There is no evidence of any wall motion abnormality. Moderate concentric LVH. Normal RV systolic pressure. If the patient has a bioprosthetic aortic valve with mild paravalvular leak without evidence of any stenosis. 01/05/2025, the patient is being seen for a follow-up. The patient is feeling well and the patient is on room air oxygen P denies having any chest pain. Minimal cough and congestion. Blood cultures been negative. White cell count is down to 14.8 with a hemoglobin of 11.8 and platelet count of 220. Creatinine is stable at 0.6. The patient remains on broad-spectrum antibiotics and the patient is on cefepime and he was given vancomycin during the hospitalization. Repeat chest x-ray was done and it shows improvement in the interstitial edema and there are some limited patchy changes in lung base bilaterally yet overall picture is improved considerably. The patient has no fever. Hemodynamically stable. No other new complaints otherwise for now. Objective - Vital Signs Vital signs: Vital Signs Temp 99.5 F 01/05/25 08:28 Pulse 81 01/05/25 08:28 Resp 18 01/05/25 08:28 BP 116/65 01/05/25 08:28 Pulse Ox 92 L 01/05/25 08:28 FiO2 Intake & Output 01/04/25 01/05/25 01/05/25 18:59 06:59 18:59 Intake Total 963 220 Output Total 350 2400 Balance 613 -2180 Weight 73.4 kg Intake: IV 15 Invasive Line 1 5 Invasive Line 2 10 Intake, IV Titration 350 100 Amount Cefepime 2 gm In Sodium 100 Chloride 0.9% 100 ml @ 25 mls/hr IVPB Q12H JENNY Rx# :[id number] Cefepime 2 gm In Sodium 100 Chloride 0.9% 100 ml @ 25 mls/hr IVPB Q8H JENNY Rx#: [id number] Vancomycin 1,250 mg In 250 Sodium Chloride 0.9% 250 ml @ 125 mls/hr IVPB Q16H JENNY Rx#:[id number] Oral 598 120 Output: Urine 350 2400 Other: Voiding Method Toilet # Voids 1 - Exam GENERAL EXAM: Alert, 79-year-old male, sitting up in bed, with left arm sling, comfortable in no apparent distress. The patient is currently on room air oxygen HEAD: Normocephalic and atraumatic EYES: Normal reaction of pupils, equal size. NOSE: Clear with pink turbinates. THROAT: No erythema or exudates. NECK: No masses, no JVD. CHEST: No chest wall deformity. LUNGS: Equal air entry with right posterior lung wheezing/rhonchi. Left lung mostly clear with auscultation. No conversational dyspnea or accessory muscle use.. While at rest CVS: S1 and S2 normal with grade 2 systolic murmur, regular rhythm. No other extra heart sounds ABDOMEN: No hepatosplenomegaly, active bowel sounds, no guarding or rigidity. SPINE: No scoliosis or deformity SKIN: No rashes CENTRAL NERVOUS SYSTEM: No focal deficits, tone is normal in all 4 extremities. EXTREMITIES: Left arm in a sling, postsurgical incision approximated clean and dry. There is 2+ bilateral lower extremity edema. No clubbing or cyanosis. Peripheral pulses are intact - Labs CBC & Chem 7: 01/03/25 05:48 01/05/25 08:45 Labs: Abnormal Lab Results - Last 24 Hours (Table) 01/03/25 01/04/25 01/05/25 Range/Units 05:48 12:48 08:45 Creatinine 0.63 L 0.62 L (0.66-1.25) mg/dL T-Suppressor Cells 108 L (190-832) cell/ul Total T Cells 421 L (704-2138) cell/ul Absolute CD4 [place] 301 L (443-1471) cell/ul Microbiology - Last 24 Hours (Table) 01/01/25 20:57 Blood Culture - Preliminary Blood 01/02/25 21:19 Nasal Screen MRSA/MSSA - Final Nasal Swab Assessment and Plan Assessment: Bilateral lower lobe pneumonia right more than left. The patient has developed recurrent pneumonia. The patient was hospitalized in the past for a right-sided pneumonia, sputum culture previously positive for Gretchen and Serratia marcescens on 11/28/2024, patient has had repeat hospitalization, most recently discharged on December 18 with a combination of oral Levaquin and Diflucan. Repeat chest x-ray showing redemonstration of similar patchy right lower lung field infiltrates, with more diffuse interstitial infiltrates concerning for pulmonary edema or atypical pneumonia. NT-proBNP 5170. Viral 4 Plex negative for influenza A/B, RSV, COVID. Procalcitonin level was quite elevated and is not an improving trend in the patient's suspected bacterial pneumonia was treated with a combination of cefepime and vancomycin. Clinically improved and the patient is currently on room air oxygen. Chest x-ray is also improving. Acute CHF exacerbation, with unknown ejection fraction, currently on Lasix 20 mg IV every 24 hours, echocardiogram shows a preserved LV function, normal functioning aortic valve without evidence of any stenosis with mild paravalvular leak. Recurrent dysphagia with a history of esophageal strictures and Schatzki ring, most recent undergoing balloon dilation May,. Repeat EGD done On 11/29/2024 remarkable findings for mild esophagitis. No noted esophageal strictures, hernias. 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 History of hiatal hernia History of gastroesophageal reflux disease Hypertension History of hyperlipidemia History of aortic valve stenosis status post transcatheter aortic valve rep lacement History of left shoulder replacement Former tobacco smoker Plan: Room air oxygen, clinically stable improving. Chest x-ray shows improvement in the lower lobe pulmonary infiltrates Patient was treated with broad-spectrum antibiotics and the patient can be switched to oral antibiotics at time of discharge.Based on previous microbiology, the patient be able to complete course of Avelox or Levaquin at time of discharge. Check procalcitonin level was elevated at time of admission and it is downtrending Echocardiogram was noted Continue on Lasix 20 mg IV every 24 hours, switch the patient to oral Lasix at the time of discharge Lactic acid level improved Awaiting blood culture results, negative thus far Repeat chest x-ray in the morning No new complaints otherwise for now. Clinically and hemodynamically stable. will continue to follow, currently on room air oxygen. Possible discharge today or within the next 24 hours. Will be discussed with the medical team. Time with Patient: Greater than 30
[2025-01-05 12:32] VITALS: BP 99/63; TEMP 99.4
[2025-01-05 14:32] VITALS: RESP 20
[2025-01-05 15:10] VITALS: PULSE 72
--- NOTE | 2025-01-05 18:27 | P.DS ---
Providers Date of admission: 01/02/25 00:29 Expected date of discharge: 01/05/25 Attending physician: Charles Donnelly Consults: 01/02/25 00:26 Consult Physician Stat Consulting Provider: Tiny Campos Consult Reason/Comments: Pneumonia, AMS Do you want consulting provider notified?: Yes, Notify in am 01/03/25 00:34 Consult Physician Routine Consulting Provider: Phoenix Oliveira Consult Reason/Comments: Heart failure Do you want consulting provider notified?: Yes, Notify in am [facility] Course: Chief Complaint: Short of breath Very pleasant 79-year-old male , follows with Dr. Stewart Ramos. 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 Medical conditions include GERD, hypertension, hyperlipidemia, osteoarthritis, esophageal stricture constriction in the past, aortic valve stenosis, restless leg syndrome. Chronic back pain from a fall in his younger days. Ex-smoker. EGD with Dr. Spring on November 29. No stricture found Patient felt other sleepy all day. Tired. Also short of breath cough sputum production. Drenched in sweat. deCreased appetite yesterday. Until day before he has been active.. Doing his work. 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 Also active in his [employer] business January 03: More awake. Holding a good conversation. Breathing better. Slight cough. Remains on IV cefepime and vancomycin. Up to bathroom. Reminded to use incentive spirometry. Discussed with the patient and the . January 04: Breathing continues to improve. Cough improved. Minimal sputum. Eatin g better. Has been up in bed. MRSA nasal screen negative. DC vancomycin. Has been ambulating January 05: Respiratory status much improved. 94% room air. Patient recently had 4 bouts of pneumonia. Discussed with the patient . Apparently his workplace is somewhat dirty. Did tell him to get it cleaned. Also told the patient to use a mask when he is working. Patient will follow-up with Dr. Campos. Cleared for discharge. Will give 3 more days of Ceftin. Discharged with a small dose of Lasix. Discussion and discharge planning more than 35 minutes Social history: Smoked less than a pack half a pack a day for 20 years stopped about 40 years ago. 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 . Physical examination: VITAL SIGNS: 99.4, 92, 18, 99% 3, 94% room air GENERAL: Comfortable EYES: Pupils equal. Conjunctiva hugh l. HEENT: External appearance of nose and ears normal, oral cavity grossly normal. NECK: JVD not raised; masses not palpable. HEART: First and second heart sounds are normal; no edema. LUNGS: Respiratory rate normal d, improved air entry ABDOMEN: Soft, nontender, liver spleen not palpable, no masses palpable. PSYCH: Able to answer questions appropriately n MUSCULOSKELETAL:No Clubbing/cyanosis;muscles-grossly intact. OA. Limited range of motion left shoulder. Left arm in a sling INVESTIGATIONS, reviewed in the clinical context: T-cell process cells 108 total T cells 421 absolute CD4 helper cell 301 January 05: Procalcitonin 1.2 January 03: White count 14.8 hemoglobin 9.8 UA: Negative 6 influenza type A, type B, RSV, SARS-CoV-2: Not detected . : White count 19.2 hemoglobin 11.7 platelets 236 sodium 137 potassium 5.1 BUN 35 creatinine 0.96 Lactic acid 1.9, 2.3 Procalcitonin 14.2 EKG tracing personally reviewed by me-normal sinus rhythm. Abnormal T waves inferior lateral leads CT brain: Nothing acute Chest x-ray film personally reviewed by me-scattered infiltrates Assessment plan: - multilobar pneumonia suspect gram-negative organism, recurrent episode pneumonia: Clinically much better [Presented with cough short of breath sputum production, heavy perspiration) IV cefepime Nasal screen for MRSA negative. Stop vancomycin Discharge with Ceftin 500 g twice daily 3 days - Low CD4, T-cell counts Discussed with Dr. Campos. She will follow-up outpatient with him -History of dysphagia. Patient is at multiple esophageal dilatation in the past. Dr. Spring did EGD November 2024. No stricture identified -Given recurrent pneumonia, check immune deficiency panel -Restless leg syndrome Requip 4 mg twice daily -Chronic low back pain from prior injury Neurontin 400 mg 3 times daily as needed. Mobic. [place] 10. - Left shoulder dysfunction. Being followed by orthopedics outpatient Left arm in a sling -COPD in a previous smoker DuoNeb 3 times daily -GERD Lansoprazole 30 mg daily -Essential hypertension, Zestril Lopressor -Hyperlipidemia Zetia 10 mg a day -Full code Disposition: Home Past Medical History Past Medical History: Heart Failure, GERD/Reflux, Hyperlipidemia, Hypertension, Musculoskeletal Disorder, Osteoarthritis (OA) Additional Past Medical History / Comment(s): esophageal constriction in the past, aortic valve stenosis, RLS, past hx. of compression fx. in back after a fall, chronic back pain, dry cough - has seen Dr. 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, Left Shoulder reverse replacement Past Anesthesia/Blood Transfusion Reactions: No Reported Reaction Past Psychological History: No Psychological Hx Reported Smoking Status: Former smoker Past Alcohol Use History: Occasional Past Drug Use History: None Reported Plan - Discharge Summary New Discharge Prescriptions: New Furosemide [Lasix] 20 mg PO DAILY #30 tab cefuroxime axetiL [Ceftin] 500 mg PO BID #6 tab Continue rOPINIRole HCL [Requip] 4 mg PO BID modafiniL [Provigil] 200 mg PO DAILY lisinopriL [Zestril] 20 mg PO DAILY Metoprolol Tartrate [Lopressor] 25 mg PO BID Meloxicam [Mobic] 15 mg PO DAILY HYDROcodone/APAP 10-325MG [[place] 10-325] 1 tab PO Q6H PRN PRN Reason: Pain Gabapentin [Neurontin] 400 mg PO QID Rosuvastatin [Crestor] 10 mg PO DAILY Pramipexole [Mirapex] 0.5 mg PO HS Albuterol Sulfate [Albuterol Sulfate Hfa] 1 puff INHALATION RT-Q4H PRN PRN Reason: Shortness Of Breath Aspirin 81 mg PO BID Ezetimibe [Zetia] 10 mg PO DAILY No Action Lansoprazole 30 mg PO DAILY Fluticasone/Umeclidin/Vilanter [Trelegy Ellipta 100-62.5-25] 1 puff INHALA TION RT-DAILY Omeprazole 40 mg PO DAILY #30 cap Discharge Medication List Ezetimibe [Zetia] 10 mg PO DAILY 11/02/21 [History] Gabapentin [Neurontin] 400 mg PO QID 11/02/21 [History] HYDROcodone/APAP 10-325MG [[place] 10-325] 1 tab PO Q6H PRN 11/02/21 [History] Lansoprazole 30 mg PO DAILY 11/02/21 [History] Meloxicam [Mobic] 15 mg PO DAILY 11/02/21 [History] Metoprolol Tartrate [Lopressor] 25 mg PO BID 11/02/21 [History] lisinopriL [Zestril] 20 mg PO DAILY 11/02/21 [History] modafiniL [Provigil] 200 mg PO DAILY 11/02/21 [History] rOPINIRole HCL [Requip] 4 mg PO BID 11/02/21 [History] Rosuvastatin [Crestor] 10 mg PO DAILY 10/17/23 [History] Pramipexole [Mirapex] 0.5 mg PO HS 11/26/24 [History] Omeprazole 40 mg PO DAILY #30 cap 11/30/24 [Rx] Albuterol Sulfate [Albuterol Sulfate Hfa] 1 puff INHALATION RT-Q4H PRN 12/15/24 [History] Aspirin 81 mg PO BID 01/01/25 [History] Fluticasone/Umeclidin/Vilanter [Trelegy Ellipta 100-62.5-25] 1 puff INHALATION RT-DAILY 01/02/25 [History] Furosemide [Lasix] 20 mg PO DAILY #30 tab 01/05/25 [Rx] cefuroxime axetiL [Ceftin] 500 mg PO BID #6 tab 01/05/25 [Rx] Follow up Appointment(s)/Referral(s): Stewart Ramos MD [Primary Care Provider] - 1-2 days Tiny Campos MD [STAFF PHYSICIAN] - 1 Week
== END 2025-01-05 15:48 | disposition home or self-care (01) | DRG 177 ==
LOC: EC 18:25 → 3SCARD 01-02 00:29
PROVIDERS: ADMIT Hospitalist; ATTEND Hospitalist
DX: J15.69 Pneumonia due to other Gram-negative bacteria (principal); I50.31 Acute diastolic (congestive) heart failure; J96.01 Acute respiratory failure with hypoxia; I11.0 Hypertensive heart disease with heart failure; J44.0 Chronic obstructive pulmonary disease with (acute) lower respiratory infection; G25.81 Restless legs syndrome; D64.9 Anemia, unspecified; Z95.3 Presence of xenogenic heart valve; J61 Pneumoconiosis due to asbestos and other mineral fibers; K22.2 Esophageal obstruction; E78.5 Hyperlipidemia, unspecified; K21.9 Gastro-esophageal reflux disease without esophagitis; K44.9 Diaphragmatic hernia without obstruction or gangrene; I25.10 Atherosclerotic heart disease of native coronary artery without angina pectoris; Z79.51 Long term (current) use of inhaled steroids; Z79.1 Long term (current) use of non-steroidal anti-inflammatories (NSAID); Z79.82 Long term (current) use of aspirin; Z79.899 Other long term (current) drug therapy; Z87.891 Personal history of nicotine dependence; Z86.19 Personal history of other infectious and parasitic diseases; Z91.81 History of falling; Z87.01 Personal history of pneumonia (recurrent); Z77.090 Contact with and (suspected) exposure to asbestos; Z96.612 Presence of left artificial shoulder joint
CPT/HCPCS: 36415; 70450; 71045; 71046; 80053; 80202; 81003; 82140; 82565; 82803; 83605; 83735; 83880; 84100; 84145; 84484; 85025; 85610; 85730; 86355; 86357; 86359; 86360; 87040; 87070; 87205; 87636; 93005; 93306; 94640; 94760; 96361; 96365; 96366; 96367; 96375; 99285

== ENCOUNTER 2025-01-07 01:46 | Inpatient (IN) | payer MEDICARE ==
--- NOTE | 2025-01-07 02:18 | ED ---
General Adult HPI - General Chief complaint: Shortness of Breath Stated complaint: TRISTEN Time Seen by Provider: 01/07/25 01:56 Source: patient, family, RN notes reviewed Mode of arrival: ambulatory Limitations: no limitations - History of Present Illness Initial comments: This is a 79-year-old male with a history of hypertension, hyperlipidemia, recurrent pneumonia presenting to emergency room with his for concerns of difficulty in breathing and productive cough that has been worsening over the past week. Patient was discharged on 01/05/2025 and has been taking cefuroxime as prescribed however his symptoms have not been improving. Endorses chills and peripheral edema. He denies chest pain, heart palpitations, dizziness, lightheadedness, abdominal pain, nausea or vomiting. patient states that while he was in the hospital he was being administered breathing treatments, however does not have a nebulizer at home. - Related Data Home Medications Medication Instructions Recorded Confirmed Ezetimibe [Zetia] 10 mg PO DAILY 11/02/21 01/07/25 Gabapentin [Neurontin] 400 mg PO QID 11/02/21 01/07/25 HYDROcodone/APAP 10-325MG [[place] 1 tab PO Q6H PRN 11/02/21 01/07/25 10-325] Lansoprazole 30 mg PO DAILY 11/02/21 01/07/25 Meloxicam [Mobic] 15 mg PO DAILY 11/02/21 01/07/25 Metoprolol Tartrate [Lopressor] 25 mg PO BID 11/02/21 01/07/25 lisinopriL [Zestril] 20 mg PO DAILY 11/02/21 01/07/25 modafiniL [Provigil] 200 mg PO DAILY 11/02/21 01/07/25 rOPINIRole HCL [Requip] 4 mg PO BID 11/02/21 01/07/25 Rosuvastatin [Crestor] 10 mg PO DAILY 10/17/23 01/07/25 Pramipexole [Mirapex] 0.5 mg PO HS 11/26/24 01/07/25 Albuterol Sulfate [Albuterol 1 puff INHALATION RT-Q4H PRN 12/15/24 01/07/25 Sulfate Hfa] Aspirin 81 mg PO BID 01/01/25 01/07/25 Fluticasone/Umeclidin/Vilanter 1 puff INHALATION RT-DAILY 01/02/25 01/07/25 [Trelegy Ellipta 100-62.5-25] Magnesium (Unknown Otc) 1 dose PO DAILY 01/07/25 01/07/25 Vitamin C (Unknown Otc) 1 dose PO DAILY 01/07/25 01/07/25 Vitamin D3 (Unknown Otc) 1 dose PO DAILY 01/07/25 01/07/25 Vitamin E (Unknown Otc) 1 dose PO DAILY 01/07/25 01/07/25 Previous Rx's Medication Instructions Recorded Omeprazole 40 mg PO DAILY #30 cap 11/30/24 Furosemide [Lasix] 20 mg PO DAILY #30 tab 01/05/25 cefuroxime axetiL [Ceftin] 500 mg PO BID #6 tab 01/05/25 Allergies Allergy/AdvReac Type Severity Reaction Status Date / Time No Known Allergies Allergy Verified 01/07/25 06:17 Review of Systems ROS Statement: Those systems with pertinent positive or pertinent negative responses have been documented in the HPI. ROS Other: All systems not noted in ROS Statement are negative. Past Medical History Past Medical History: Heart Failure, GERD/Reflux, Hyperlipidemia, Hypertension, Musculoskeletal Disorder, Osteoarthritis (OA) Additional Past Medical History / Comment(s): esophageal constriction in the past, aortic valve stenosis, RLS, past hx. of compression fx. in back after a fall, chronic back pain, dry cough - has seen Dr. 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, Left Shoulder reverse replacement Past Anesthesia/Blood Transfusion Reactions: No Reported Reaction Past Psychological History: No Psychological Hx Reported Smoking Status: Former smoker - Past Family History Mother Family Medical History: No Reported History, Hypertension Father Family Medical History: No Reported History, Hypertension General Exam Limitations: no limitations General appearance: alert, in no apparent distress Eye exam: Present: normal appearance, PERRL, EOMI. Absent: scleral icterus, conjunctival injection, periorbital swelling Neck exam: Present: normal inspection. Absent: tenderness, meningismus, lymphadenopathy Respiratory exam: Present: wheezes, decreased breath sounds. Absent: normal lung sounds bilaterally, respiratory distress Cardiovascular Exam: Present: regular rate, normal rhythm, normal heart sounds. Absent: systolic murmur, diastolic murmur, rubs, gallop, clicks GI/Abdominal exam: Present: soft, normal bowel sounds. Absent: distended, tenderness, guarding, rebound, rigid Extremities exam: Present: other (bilateral LE edema, 1+). Absent: tenderness Back exam: Present: normal inspection Neurological exam: Present: alert, oriented X3, CN II-XII intact Course Vital Signs 01/07/25 01/07/25 01/07/25 01:52 03:32 03:41 Temperature 100.0 F H Pulse Rate 89 73 75 Respiratory 18 Rate Blood Pressure 129/62 O2 Sat by Pulse 88 L Oximetry 01/07/25 01/07/25 01/07/25 04:34 05:24 05:37 Temperature 98.8 F Pulse Rate 74 78 80 Respiratory 16 Rate Blood Pressure 121/72 O2 Sat by Pulse 97 Oximetry 01/07/25 01/07/25 05:39 05:43 Temperature Pulse Rate 78 Respiratory 18 18 Rate Blood Pressure 144/71 O2 Sat by Pulse 97 Oximetry Medical Decision Making - Medical Decision Making Was pt. sent in by a medical professional or institution (, PA, CAN TOP SETTER, urgent care, hospital, or senior living...) When possible be specific @ -No Did you speak to anyone other than the patient for history (EMS, parent, family, police, friend...)? What history was obtained from this source @ -No Did you review nursing and triage notes (agree or disagree)? Why? @ -I reviewed and agree with nursing and triage notes Were old charts reviewed (outside hosp., previous admission, EMS record, old EKG, old radiological studies, urgent care reports/EKG's, senior living records)? Report findings @ -Reviewed ER visit note from 01/01/2025 where patient presented with difficulty breathing was admitted for pneumonia. Reviewed patient's discharge packet from 01/05/2025 where he was discharged on Ceftin and was scheduled to follow-up with Dr. Campos outpatient in 3 days. Differential Diagnosis (chest pain, altered mental status, abdominal pain women, abdominal pain men, vaginal bleeding, weakness, fever, dyspnea, syncope, headache, dizziness, GI bleed, back pain, seizure, CVA, palpatations, mental health, musculoskeletal)? @ -Differential Dyspnea: Coronary syndrome, arrhythmia, tamponade, asthma, COPD, pulmonary embolism, pneumonia, pneumothorax, pulmonary effusion, anaphylaxis, diabetic ketoacidosis, flailed chest, pulmonary contusion, diaphragmatic rupture, anemia, neuromuscular, this is not meant to be an all-inclusive list. EKG interpreted by me (3pts min.). @ -Completed at 210 sinus rhythm with a ventricular of 79, IL interval 168, QRS 102, QT 360, QTc 395. X-rays interpreted by me (1pt min.). @ -None done CT interpreted by me (1pt min.). @ -None done U/S interpreted by me (1pt. min.). @ -None done What testing was considered but not performed or refused? (CT, X-rays, U/S, labs)? Why? @ -None What meds were considered but not given or refused? Why? @ -None Did you discuss the management of the patient with other professionals (professionals i.e. , PA, CAN TOP SETTER, lab, RT, psych nurse, social services counselor, bread wrapper operator, teacher, airline pilot/first officer, lining caser)? Give summary @ -Dr. Donnelly for admission Was smoking cessation discussed for >3mins.? @ -No Was critical care preformed (if so, how long)? @ -No Were there social determinants of health that impacted care today? How? (Homelessness, low income, unemployed, alcoholism, drug addiction, transportation, low edu. Level, literacy, decrease access to med. care, detention, rehab)? @ -No Was there de-escalation of care discussed even if they declined (Discuss DNR or withdrawal of care, Hospice)? DNR status @ -No What co-morbidities impacted this encounter? (DM, HTN, Smoking, COPD, CAD, Cancer, CVA, ARF, Chemo, Hep., AIDS, mental health diagnosis, sleep apnea, morbid obesity)? @ -None Was patient admitted / discharged? Hospital course, mention meds given and route, prescriptions, significant lab abnormalities, going to OR and other pertinent info. @ -Admitted. 79-year-old male presents emergency room with complaints of dyspnea and cough. Patient is febrile on arrival with a temperature of 100 and hypoxic with an O2 saturation 88% on room air. With the patient's known history of pneumonia and fever patient does meet sepsis criteria. At this time weight- based fluid resuscitation with lactated Ringer's is ordered 2500 mL. Additionally, blood cultures are obtained prior to broad-spectrum antibiotic administration of Rocephin. There is noted adventitious lung sounds over the right lung field primarily. However, overall patient is well-appearing on initial examination and no signs of respiratory distress. Patient is placed on supplemental oxygen. EKG is in sinus rhythm. CBC no evidence of leukocytosis. patient will be readmitted to Dr. Donnelly. case was discussed with my attending, Dr. Olsen Undiagnosed new problem with uncertain prognosis? @ -No Drug Therapy requiring intensive monitoring for toxicity (Heparin, Nitro, Insulin, Cardizem)? @ -No Were any procedures done? @ -No Diagnosis/symptom? @ -pneumonia Acute, or Chronic, or Acute on Chronic? @ -acute Uncomplicated (without systemic symptoms) or Complicated (systemic symptoms)? @ -complicated Side effects of treatment? @ -No Exacerbation, Progression, or Severe Exacerbation? @ -No Poses a threat to life or bodily function? How? (Chest pain, [place], [place], pneumonia, PE, COPD, DKA, ARF, appy, cholecystitis, CVA, Diverticulitis, Homicidal, Suicidal, threat to staff... and all critical care pts) @ -Yes, there is potential for lead to endorgan system dysfunction and potential . - Lab Data Result diagrams: 01/09/25 04:05 01/07/25 02:55 Lab Results 01/07/25 01/07/25 01/07/25 Range/Units 02:55 02:55 02:55 WBC 9.73 (4.50-10.00) 10*3/uL RBC 4.10 L (4.40-5.60) 10*6/uL Hgb 11.4 L (13.0-17.0) g/dL Hct 34.8 L (39.6-50.0) % MCV 84.9 (80.0-97.0) fL MCH 27.8 (27.0-32.0) pg MCHC 32.8 (32.0-37.0) g/dL Plt Count 272 (140-440) 10*3/uL MPV 9.3 L (9.5-12.2) fL Immature Gran % (Auto) 0.4 % Neutrophils % 74.7 % Lymphocytes % 9.1 % Monocytes % 11.3 % Eosinophils % 3.9 % Basophils % 0.6 % Immature Gran # 0.04 (0.00-0.04) 10*3/uL Neutrophils # 7.26 (1.80-7.70) 10*3/uL Lymphocytes # 0.89 L (0.90-5.00) 10*3/uL Monocytes # 1.10 H (0.20-1.00) 10*3/uL Eosinophils # 0.38 H (0.04-0.35) 10*3/uL Basophils # 0.06 (0.00-0.10) 10*3/uL PT 11.6 (10.0-12.5) sec INR 1.1 (<1.2) APTT 27.7 (22.0-30.0) sec Sodium 136 L (137-145) mmol/L Potassium 4.4 (3.5-5.1) mmol/L Chloride 96 L (98-107) mmol/L Carbon Dioxide 29 (22-30) mmol/L Anion Gap 11 mmol/L BUN 31 H (9-20) mg/dL Creatinine 0.81 (0.66-1.25) mg/dL Est GFR (CKD-EPI)AfAm >90 (>60 ml/min/1.73 sqM) Est GFR (CKD-EPI)NonAf 83 (>60 ml/min/1.73 sqM) Glucose 95 (74-99) mg/dL Plasma Lactic Acid Krishna (0.7-2.0) mmol/L Calcium 9.4 (8.4-10.2) mg/dL Magnesium 2.0 (1.6-2.3) mg/dL Total Bilirubin 0.5 (0.2-1.3) mg/dL AST 79 H (17-59) U/L ALT 154 H (4-49) U/L Alkaline Phosphatase 93 (38-126) U/L Troponin I (0.000-0.034) ng/mL NT-Pro-B Natriuret Pep 2190 pg/mL Total Protein 6.8 (6.3-8.2) g/dL Albumin 3.6 (3.5-5.0) g/dL 01/07/25 01/07/25 Range/Units 02:55 02:55 WBC (4.50-10.00) 10*3/uL RBC (4.40-5.60) 10*6/uL Hgb (13.0-17.0) g/dL Hct (39.6-50.0) % MCV (80.0-97.0) fL MCH (27.0-32.0) pg MCHC (32.0-37.0) g/dL Plt Count (140-440) 10*3/uL MPV (9.5-12.2) fL Immature Gran % (Auto) % Neutrophils % % Lymphocytes % % Monocytes % % Eosinophils % % Basophils % % Immature Gran # (0.00-0.04) 10*3/uL Neutrophils # (1.80-7.70) 10*3/uL Lymphocytes # (0.90-5.00) 10*3/uL Monocytes # (0.20-1.00) 10*3/uL Eosinophils # (0.04-0.35) 10*3/uL Basophils # (0.00-0.10) 10*3/uL PT (10.0-12.5) sec INR (<1.2) APTT (22.0-30.0) sec Sodium (137-145) mmol/L Potassium (3.5-5.1) mmol/L Chloride (98-107) mmol/L Carbon Dioxide (22-30) mmol/L Anion Gap mmol/L BUN (9-20) mg/dL Creatinine (0.66-1.25) mg/dL Est GFR (CKD-EPI)AfAm (>60 ml/min/1.73 sqM) Est GFR (CKD-EPI)NonAf (>60 ml/min/1.73 sqM) Glucose (74-99) mg/dL Plasma Lactic Acid Krishna 1.0 (0.7-2.0) mmol/L Calcium (8.4-10.2) mg/dL Magnesium (1.6-2.3) mg/dL Total Bilirubin (0.2-1.3) mg/dL AST (17-59) U/L ALT (4-49) U/L Alkaline Phosphatase (38-126) U/L Troponin I <0.012 (0.000-0.034) ng/mL NT-Pro-B Natriuret Pep pg/mL Total Protein (6.3-8.2) g/dL Albumin (3.5-5.0) g/dL Disposition Clinical Impression: Pneumonia, Sepsis Disposition: ADMITTED IP TO THIS [facility] Condition: Stable Decision to Admit Reason: Admit from EC Decision Date: 01/07/25 Decision Time: 03:22
[2025-01-07] MEDS ORDERED: LACTATED RINGERS 1,000 ML IV SCH (02:30)
[2025-01-07] MEDS ORDERED: IBUPROFEN 400 MG TAB PO PRN (03:22)
[2025-01-07] MEDS ORDERED: NALOXONE 0.4 MG/ML 1 ML VIAL IV PRN (03:22)
[2025-01-07] MEDS: LACTATED RINGERS 1,000 ML IV SCH (03:27)
[2025-01-07 03:29] LABS: Basophils # (A) 0.06 10*3/uL (0.00-0.10); Basophils % (A) 0.6 %; Eosinophils # (A) 0.38 10*3/uL (0.04-0.35); Eosinophils % (A) 3.9 %; HCT 34.8 % (39.6-50.0); HGB 11.4 g/dL (13.0-17.0); Lymphocytes # (A) 0.89 10*3/uL (0.90-5.00); Lymphocytes % (A) 9.1 %; MCH 27.8 pg (27.0-32.0); MCHC 32.8 g/dL (32.0-37.0); MCV 84.9 fL (80.0-97.0); Mean Platelet Volume 9.3 fL (9.5-12.2); Monocytes % (A) 11.3 %; Neutrophils # (A) 7.26 10*3/uL (1.80-7.70); Neutrophils % (A) 74.7 %; Platelet Count 272 10*3/uL (140-440); RDW 15.5 % (11.5-14.5); WBC 9.73 10*3/uL (4.50-10.00)
[2025-01-07] MEDS: IPRATROPIUM-ALBUTEROL 3 ML NEB INHALATION STA (03:32)
[2025-01-07 03:45] LABS: INR 1.1 (<1.2); Partial Thromboplastin Time 27.7 sec (22.0-30.0); Prothrombin Time 11.6 sec (10.0-12.5)
--- NOTE | 2025-01-07 03:59 | XR ---
EXAM: XR Chest, 2 Views CLINICAL HISTORY: ITS.REASON XR Reason: difficulty breathing TECHNIQUE: Frontal and lateral views of the chest. COMPARISON: No relevant prior studies available. IMPRESSION: Cardiomegaly. Mild vascular congestion
[2025-01-07 04:08] LABS: ALT 154 U/L (4-49); AST 79 U/L (17-59); African American GFR (CKD) >90 (>60 ml/min/1.73 sqM); Albumin 3.6 g/dL (3.5-5.0); Alkaline Phosphatase 93 U/L (38-126); Anion Gap 11 mmol/L; Blood Urea Nitrogen 31 mg/dL (9-20); Calcium 9.4 mg/dL (8.4-10.2); Carbon Dioxide 29 mmol/L (22-30); Chloride 96 mmol/L (98-107); Glucose 95 mg/dL (74-99); Non-African American GFR(CKD) 83 (>60 ml/min/1.73 sqM); Potassium 4.4 mmol/L (3.5-5.1); Sodium 136 mmol/L (137-145); Total Bilirubin 0.5 mg/dL (0.2-1.3); Total Protein 6.8 g/dL (6.3-8.2)
[2025-01-07 04:20] LABS: NT-Pro-B-Type Natriuretic Pept 2190 pg/mL
[2025-01-07] MEDS: IPRATROPIUM 0.5 MG/2.5 ML NEBU INHALATION STA (05:22)
[2025-01-07] MEDS: ALBUTEROL NEB (CONC) 2.5 MG/0.5 ML INHALATION STA (05:22)
[2025-01-07] MEDS: SODIUM CHLORIDE 0.9% 1,000 ML IV SCH (06:16)
[2025-01-07] MEDS: MAGNESIUM OXIDE 400 MG TAB PO SCH (10:09)
[2025-01-07] MEDS: HYDROcodone/APAP 10-325MG 1 EACH TAB PO PRN (10:09)
[2025-01-07] MEDS: MELOXICAM 7.5 MG TAB PO SCH (10:09)
[2025-01-07] MEDS: ATORVASTATIN 20 MG TAB PO SCH (10:09)
[2025-01-07] MEDS: FUROSEMIDE 20 MG TAB PO SCH ×2 (10:09→15:50)
[2025-01-07] MEDS: PANTOPRAZOLE 40 MG TABLET PO SCH (10:09)
[2025-01-07] MEDS: ASCORBIC ACID 500 MG TAB PO SCH (10:09)
[2025-01-07] MEDS: lisinopriL 20 MG TAB PO SCH (10:09)
[2025-01-07] MEDS: CHOLECALCIFEROL 25 MCG (1000 IU) TABLET PO SCH (10:09)
[2025-01-07] MEDS: EZETIMIBE 10 MG TAB PO SCH (10:09)
[2025-01-07] MEDS: METOPROLOL TARTRATE 25 MG TAB PO SCH (10:09)
[2025-01-07] MEDS: GABAPENTIN 400 MG CAP PO SCH (10:10)
[2025-01-07] MEDS: ASPIRIN 81 MG PO SCH (10:10)
[2025-01-07] MEDS: VITAMIN E (DL,TOCOPHERYL ACET) 400 UNIT (180 MG) CAP PO SCH (11:24)
[2025-01-07] MEDS: rOPINIRole HCL 4 MG TABLET PO SCH (11:24)
--- NOTE | 2025-01-07 14:01 | P.HPIM ---
History of Present Illness H&P Date: 01/07/25 Chief Complaint: Cough Very pleasant 79-year-old male , follows with Dr. Stewart Ramos. Launch Manager Dr. Oliveira and livestock caretaker Dr. Monson. Medical conditions include GERD, hypertension, hyperlipidemia, osteoarthritis, esophageal stricture constriction in the past, aortic valve stenosis, restless leg syndrome. Chronic back pain from a fall in his younger days. Ex-smoker. EGD with Dr. Spring on November 29. No stricture found Patient recently had about 4 bouts of pneumonia. There has been a question about aspiration also. 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 There was noted to fill completely with hard solid textures. Patient was recommended regular texture diet with thin liquids small bites and sips liquid alternation and upright positioning for 30 to 45 minutes after intake. Recent EGD by general surgery Dr. Spring was unremarkable Patient recently was admitted on January 01 and discharged on January 05, with pneumonia. Patient has a elevated procalcitonin of 14.2 did come down to 1.2 prior to discharge. Patient doing rather well upon discharge. Lungs were clear. Pulse ox on room air was 94% Patient yet again presents with feeling tired. Congested cough. Some sputum production. Some shortness of breath. It was discussed with Dr. Campos prior to discharge the patient may need a bronchoscopy if the symptoms recur. Patient also discharged on dose of Lasix. Review of systems: GEN.: Tired EYES: None HEENT: None NECK: None RESPIRATORY: As above CARDIOVASCULAR: None GASTROINTESTINAL: None GENITOURINARY: None MUSCULOSKELETAL: Chronic low back pain. Left shoulder pain LYMPHATICS: None HEMATOLOGICAL: None PSYCHIATRY: None NEUROLOGICAL: None Social history: Smoked less than a pack half a pack a day for 20 years stopped about 40 years ago. 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 . Physical examination: VITAL SIGNS: 100, 89, 18, 129 x 62, 88% room air GENERAL: BMI 28.2, sitting edge of bed EYES: Pupils equal. Conjunctiva hugh l. HEENT: External appearance of nose and ears normal, oral cavity grossly normal. NECK: JVD not raised; masses not palpable. HEART: First and second heart sounds are normal; no edema. LUNGS: Respiratory rate increased, some basal coarse sounds ABDOMEN: Soft, nontender, liver spleen not palpable, no masses palpable. PSYCH: AO x 3, mood affect normal MUSCULOSKELETAL:No Clubbing/cyanosis;muscles-grossly intact. OA. Limited range of motion left shoulder. Left arm in a sling NEUROLOGICAL: Cranial nerves grossly intact; no facial asymmetry, power and sensation grossly intact. LYMPHATICS: No lymph nodes palpable in the axilla and neck INVESTIGATIONS, reviewed in the clinical context: January 07: White count 9.7 hemoglobin 11.4 platelets 272 sodium 136 potassium 4.4 creatinine 0.81 troponin I less than 0.012 proBNP 2190 EKG tracing personally reviewed by me-normal sinus rhythm Chest x-ray film personally reviewed by me-some scattered infiltrates. Questionable venous prominence Recent T-cell process cells 108 total T cells 421 absolute CD4 helper cell 301 2D echo: EF 55 to 60%. Assessment plan: - Acute shortness breath with cough. Appears again to be combination of possible pneumonia which could be aspiration and/or fluid overload. Patient is on oral Ceftin. Also oral Lasix. Recent modified barium swallow was unremarkable. 2D echo showed preserved LV function. -Recent multilobar pneumonia suspect gram-negative organism, recurrent episode pneumonia: Patient doing much better when he left 2 days ago. Now with worsening respiratory symptoms Continue Ceftin - Low absolute CD4 helper, low total T cells, low T suppressor cells.: Suggest immunodeficiency Will check immunoglobulin G, A, M. Consult hematology - Zenker's diverticulum. This did fill up with food on barium swallow Patient to follow-up with ENT outpatient, Dr. Juan Luis Dwyer -History of dysphagia. Patient is at multiple esophageal dilatation in the past. Dr. Spring did EGD November 2024. No stricture identified -Given recurrent pneumonia, check immune deficiency panel -Restless leg syndrome Requip 4 mg twice daily -Chronic low back pain from prior injury Neurontin 400 mg 3 times daily as needed. Mobic. [place] 10. - Left shoulder dysfunction. Being followed by orthopedics outpatient Left arm in a sling -COPD in a previous smoker DuoNeb 3 times daily -GERD Lansoprazole 30 mg daily -Essential hypertension, Zestril Lopressor -Hyperlipidemia Zetia 10 mg a day -Full code Past Medical History Past Medical History: Heart Failure, GERD/Reflux, Hyperlipidemia, Hypertension, Musculoskeletal Disorder, Osteoarthritis (OA) Additional Past Medical History / Comment(s): esophageal constriction in the past, aortic valve stenosis, RLS, past hx. of compression fx. in back after a fall, chronic back pain, dry cough - has seen Dr. 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 ago, smoked for 20 yrs. <1/2ppd Past Drug Use History: None Reported - Past Family History Mother Family Medical History: No Reported History, Hypertension Father Family Medical History: No Reported History, Hypertension Medications and Allergies Home Medications Medication Instructions Recorded Confirmed Type Ezetimibe [Zetia] 10 mg PO DAILY 11/02/21 01/07/25 History Gabapentin [Neurontin] 400 mg PO QID 11/02/21 01/07/25 History HYDROcodone/APAP 10-325MG [[place] 1 tab PO Q6H PRN 11/02/21 01/07/25 History 10-325] Lansoprazole 30 mg PO DAILY 11/02/21 01/07/25 History Meloxicam [Mobic] 15 mg PO DAILY 11/02/21 01/07/25 History Metoprolol Tartrate [Lopressor] 25 mg PO BID 11/02/21 01/07/25 History lisinopriL [Zestril] 20 mg PO DAILY 11/02/21 01/07/25 History modafiniL [Provigil] 200 mg PO DAILY 11/02/21 01/07/25 History rOPINIRole HCL [Requip] 4 mg PO BID 11/02/21 01/07/25 History Rosuvastatin [Crestor] 10 mg PO DAILY 10/17/23 01/07/25 History Pramipexole [Mirapex] 0.5 mg PO HS 11/26/24 01/07/25 History Omeprazole 40 mg PO DAILY #30 cap 11/30/24 01/07/25 Rx Albuterol Sulfate [Albuterol 1 puff INHALATION RT-Q4H PRN 12/15/24 01/07/25 History Sulfate Hfa] Aspirin 81 mg PO BID 01/01/25 01/07/25 History Fluticasone/Umeclidin/Vilanter 1 puff INHALATION RT-DAILY 01/02/25 01/07/25 History [Trelegy Ellipta 100-62.5-25] Furosemide [Lasix] 20 mg PO DAILY #30 tab 01/05/25 01/07/25 Rx cefuroxime axetiL [Ceftin] 500 mg PO BID #6 tab 01/05/25 01/07/25 Rx Magnesium (Unknown Otc) 1 dose PO DAILY 01/07/25 01/07/25 History Vitamin C (Unknown Otc) 1 dose PO DAILY 01/07/25 01/07/25 History Vitamin D3 (Unknown Otc) 1 dose PO DAILY 01/07/25 01/07/25 History Vitamin E (Unknown Otc) 1 dose PO DAILY 01/07/25 01/07/25 History Allergies Allergy/AdvReac Type Severity Reaction Status Date / Time No Known Allergies Allergy Verified 01/07/25 06:17 Physical Exam Vitals: Vital Signs Temp Pulse Pulse Resp BP BP Pulse Ox 01/07/25 09:07 72 16 01/07/25 07:09 97.5 F L 72 16 105/62 94 L 01/07/25 06:40 98.0 F 75 18 120/70 91 L 01/07/25 05:43 18 01/07/25 05:39 78 18 144/71 97 01/07/25 05:37 80 01/07/25 05:24 78 01/07/25 04:34 98.8 F 74 16 121/72 97 01/07/25 03:41 75 01/07/25 03:32 73 01/07/25 01:52 100.0 F H 89 18 129/62 88 L Intake and Output 01/06/25 01/07/25 01/07/25 22:59 06:59 14:59 Other: # Voids 1 Weight 74.389 kg Results CBC & Chem 7: 01/07/25 02:55 01/07/25 02:55 Labs: Abnormal Lab Results - Last 24 Hours (Table) 01/07/25 01/07/25 Range/Units 02:55 02:55 RBC 4.10 L (4.40-5.60) 10*6/uL Hgb 11.4 L (13.0-17.0) g/dL Hct 34.8 L (39.6-50.0) % MPV 9.3 L (9.5-12.2) fL Lymphocytes # 0.89 L (0.90-5.00) 10*3/uL Monocytes # 1.10 H (0.20-1.00) 10*3/uL Eosinophils # 0.38 H (0.04-0.35) 10*3/uL Sodium 136 L (137-145) mmol/L Chloride 96 L (98-107) mmol/L BUN 31 H (9-20) mg/dL AST 79 H (17-59) U/L ALT 154 H (4-49) U/L Thrombosis Risk Factor Assmnt - Choose All That Apply Each Factor Represents 1 point: History of prior major surgery (<1month) Each Risk Factor Represents 3 Points: Age 75 years or older Thrombosis Risk Factor Assessment Total Risk Factor Score: 4 Thrombosis Risk Factor Assessment Level: Moderate Risk
--- NOTE | 2025-01-07 14:58 | P.CNPUL ---
History of Present Illness Consult date: 01/07/25 Requesting physician: Charles Donnelly Reason for consult: dyspnea, abnormal CXR/CT Chief complaint: Shortness of breath, cough, congestion History of present illness: This is a pleasant 79-year-old male with past medical history significant for dysphagia, esophageal strictures with previous balloon dilation, hiatal hernia, GERD, recurrent pneumonias, asbestosis, hypertension, hyperlipidemia, aortic valve stenosis status post TAVR, and recent left shoulder replacement. The patient has been treated on several occasions for recurrent pneumonias since June,. Chest CT from 07/15/2024 demonstrated patchy infiltrates throughout the right lung. Pleural-based calcifications along the right diaphragm. Patient does have ongoing issues with dysphagia, Schatzki ring, and previous balloon dilation. Most recent EGD done 11/29/2024 remarkable for mild acute on chronic esophagitis. No strictures, dysplasia. More recently, patient had a hospitalization November 2024 for recurrent right-sided pneumonia. Sputum was positive during a previous hospitalization for Serratia marcescens and Gretchen. He was admitted again on January 01 through January 05, 2025 for similar symptoms. Initial procalcitonin was 14.2 and improved to 1.2. His discharge chest x-ray showed mild diffuse pulmonary edema that showed improvement and patchy infiltrates suspected related to pulmonary edema. He was discharged home on Ceftin and diuretics. He returned again to the emergency room early this morning January 07, 2025 with recurrent shortness of breath. Today's chest x-ray shows cardiomegaly with mild pulmonary vascular congestion. Question of possible aspiration. White count 9.7. Hemoglobin 11.4. Platelets 272. Sodium 136. Potassium 4.4. Bicarb 29. BUN 31. Creatinine 0.81. Glucose 83. He is currently awake and alert resting flat in bed. He is maintaining O2 saturation in the mid 90s on 3 L/min per nasal cannula. He is afebrile. Hemodynamically stable. He has a dry nonproductive cough. He has been initiated on Symbicort, albuterol, Spiriva. Continued on oral diuretics. Review of Systems REVIEW OF SYSTEMS: CONSTITUTIONAL: Denies any recent significant weight loss or weight gain. EYES: Denies change in vision. EARS, NOSE, MOUTH, THROAT: Denies headaches, denies sore throat. CARDIOVASCULAR: Denies chest pain, palpitations or syncopal episodes. RESPIRATORY: Positive for shortness of breath, cough, congestion no hemoptysis. GASTROINTESTINAL: Denies change in appetite, denies abdominal pain GENITOURINARY: Denies hematuria, denies infections. MUSKULOSKELETAL: Denies pain, denies swelling. INTEGUMENTARY: Denies rash, denies eczema. NEUROLOGICAL: Denies recent memory loss, no recent seizure activity. PSYCHIATRIC: Denies anxiety, denies depression. HEMATOLOGIC/LYMPHATIC: Denies anemia, denies enlarged lymph nodes. Past Medical History Past Medical History: Heart Failure, GERD/Reflux, Hyperlipidemia, Hypertension, Musculoskeletal Disorder, Osteoarthritis (OA) Additional Past Medical History / Comment(s): esophageal constriction in the past, aortic valve stenosis, RLS, past hx. of compression fx. in back after a fall, chronic back pain, dry cough - has seen Dr. Monson recently History of Any Multi-Drug Resistant Organisms: None Reported Past Surgical History: Cardiac Valve Replacement, Heart Catheterization, Joint Replacement Additional Past Surgical History / Comment(s): colonoscopy, EGD, МАРНИА, transca theter aortic valve replacement completed 01/06/22, Left Shoulder reverse replacement Past Anesthesia/Blood Transfusion Reactions: No Reported Reaction Past Psychological History: No Psychological Hx Reported Smoking Status: Former smoker Past Alcohol Use History: Occasional Additional Past Alcohol Use History / Comment(s): quit smoking 40 yrs. ago, smoked for 20 yrs. <1/2ppd Past Drug Use History: None Reported - Past Family History Mother Family Medical History: No Reported History, Hypertension Father Family Medical History: No Reported History, Hypertension Medications and Allergies Home Medications Medication Instructions Recorded Confirmed Type Ezetimibe [Zetia] 10 mg PO DAILY 11/02/21 01/07/25 History Gabapentin [Neurontin] 400 mg PO QID 11/02/21 01/07/25 History HYDROcodone/APAP 10-325MG [[place] 1 tab PO Q6H PRN 11/02/21 01/07/25 History 10-325] Lansoprazole 30 mg PO DAILY 11/02/21 01/07/25 History Meloxicam [Mobic] 15 mg PO DAILY 11/02/21 01/07/25 History Metoprolol Tartrate [Lopressor] 25 mg PO BID 11/02/21 01/07/25 History lisinopriL [Zestril] 20 mg PO DAILY 11/02/21 01/07/25 History modafiniL [Provigil] 200 mg PO DAILY 11/02/21 01/07/25 History rOPINIRole HCL [Requip] 4 mg PO BID 11/02/21 01/07/25 History Rosuvastatin [Crestor] 10 mg PO DAILY 10/17/23 01/07/25 History Pramipexole [Mirapex] 0.5 mg PO HS 11/26/24 01/07/25 History Omeprazole 40 mg PO DAILY #30 cap 11/30/24 01/07/25 Rx Albuterol Sulfate [Albuterol 1 puff INHALATION RT-Q4H PRN 12/15/24 01/07/25 History Sulfate Hfa] Aspirin 81 mg PO BID 01/01/25 01/07/25 History Fluticasone/Umeclidin/Vilan[place] 1 puff INHALATION RT-DAILY 01/02/25 01/07/25 History [Trelegy Ellipta 100-62.5-25] Furosemide [Lasix] 20 mg PO DAILY #30 tab 01/05/25 01/07/25 Rx cefuroxime axetiL [Ceftin] 500 mg PO BID #6 tab 01/05/25 01/07/25 Rx Magnesium (Unknown Otc) 1 dose PO DAILY 01/07/25 01/07/25 History Vitamin C (Unknown Otc) 1 dose PO DAILY 01/07/25 01/07/25 History Vitamin D3 (Unknown Otc) 1 dose PO DAILY 01/07/25 01/07/25 History Vitamin E (Unknown Otc) 1 dose PO DAILY 01/07/25 01/07/25 History Allergies Allergy/AdvReac Type Severity Reaction Status Date / Time No Known Allergies Allergy Verified 01/07/25 06:17 Physical Exam Vitals: Vital Signs Temp Pulse Pulse Resp BP BP Pulse Ox 01/07/25 14:00 98.6 F 68 18 119/77 96 01/07/25 09:07 72 16 01/07/25 07:09 97.5 F L 72 16 105/62 94 L 01/07/25 06:40 98.0 F 75 18 120/70 91 L 01/07/25 05:43 18 01/07/25 05:39 78 18 144/71 97 01/07/25 05:37 80 01/07/25 05:24 78 01/07/25 04:34 98.8 F 74 16 121/72 97 01/07/25 03:41 75 01/07/25 03:32 73 01/07/25 01:52 100.0 F H 89 18 129/62 88 L Intake and Output 01/06/25 01/07/25 01/07/25 22:59 06:59 14:59 Other: # Voids 1 Weight 74.389 kg GENERAL EXAM: Alert, pleasant 81-year-old male, on 3 L nasal cannula, comfortable in no apparent distress. HEAD: Normocephalic. EYES: Normal reaction of pupils, equal size. NOSE: Clear with pink turbinates. THROAT: No erythema or exudates. NECK: No masses, no JVD. CHEST: No chest wall deformity. LUNGS: Equal air entry with few scattered rhonchi. CVS: S1 and S2 normal with no audible murmur, regular rhythm. ABDOMEN: No hepatosplenomegaly, normal bowel sounds, no guarding or rigidity. SPINE: No scoliosis or deformity SKIN: No rashes CENTRAL NERVOUS SYSTEM: No focal deficits, tone is normal in all 4 extremities. EXTREMITIES: There is no peripheral edema. No clubbing, no cyanosis. Peripheral pulses are intact. Results - Laboratory Findings CBC and BMP: 01/07/25 02:55 01/07/25 02:55 PT/INR, D-dimer PT 11.6 sec (10.0-12.5) 01/07/25 02:55 INR 1.1 (<1.2) 01/07/25 02:55 Abnormal lab findings: Abnormal Labs 01/07/25 01/07/25 02:55 02:55 RBC 4.10 L Hgb 11.4 L Hct 34.8 L MPV 9.3 L Lymphocytes # 0.89 L Monocytes # 1.10 H Eosinophils # 0.38 H Sodium 136 L Chloride 96 L BUN 31 H AST 79 H ALT 154 H - Diagnostic Findings Chest x-ray: image reviewed Assessment and Plan Assessment: Acute hypoxic respiratory failure secondary to suspected fluid volume overload versus aspiration pneumonia History of recurrent right-sided pneumonia, sputum culture previously positive for Gretchen and Serratia marcescens on 11/28/2024, patient has had multiple hospitalizations, most recently discharged again on January 05, 2025 on cefdinir Suspect acute CHF exacerbation, with unknown ejection fraction Recurrent dysphagia with a history of esophageal strictures and Schatzki ring, most recent undergoing balloon dilation May,. Repeat EGD done On 11/29/2024 remarkable findings for mild esophagitis. No noted esophageal strictures, hernias. 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 to twice daily Continue cefdinir for now Check a procalcitonin Continue albuterol, Symbicort, Spiriva Titrate down the FiO2 as tolerated May need to consider bronchoscopy if no improvement Plan discussed with patient and who is at the bedside We will continue to follow and make further recommendations based on his clinical status I have personally seen and examined the patient, performed the documentation and the assessment and plan as written. Number of minutes spent on the visit: 20 Dictation was produced using [employer] dictation software. Please excuse any grammatical, word or spelling errors. Time with Patient: Greater than 30
[2025-01-07] MEDS: PIPERACILLIN-TAZOBACTAM 3.375 GM in SODIUM CHLORIDE 0.9% 100 ML IVPB SCH (15:51)
[2025-01-07] MEDS: ALBUTEROL NEBULIZED 2.5 MG/3 ML INHALATION PRN (16:01)
[2025-01-07] MEDS ORDERED: CEFDINIR 300 MG CAP PO SCH (21:00)
[2025-01-07] MEDS: SYMBICORT 160-4.5 MCG INHALER INHALATION SCH (21:11)
[2025-01-07] MEDS: PRAMIPEXOLE 0.5 MG TAB PO SCH (21:44)
--- NOTE | 2025-01-07 22:57 | P.CONS ---
History of Present Illness - Reason for Consult Consult date: 01/07/25 Pneumonia Requesting physician: Evie Thompson - Chief Complaint Shortness of breath and cough worsening x 1 day - History of Present Illness Patient is a 79-year-old male with a past medical history significant for Heart Failure, GERD/Reflux, Hyperlipidemia, Hypertension, Musculoskeletal Disorder, Osteoarthritis (OA) who was recently admitted at this facility from January 01 to January 05 for shortness of breath and has been diagnosed and treated for possible pneumonia subsequent discharged home on oral Ceftin patient has been brought back to the hospital within 24-hour concerning for increasing shortness of breath patient will complain of shortness of breath with minimal exertion even at rest patient denies any chest pain he did have a cough and bringing up some sputum yellowish in color no hemoptysis no nausea no vomiting choking on food abdominal pain or diarrhea patient on presentation to the hospital did have a temperature of 100 degrees following night patient was nontachycardic hypotensive hypoxic is currently on 3 L nasal cannula oxygen he did have a white count 9.73 creatinine 0.81 liver isms mildly elevated patient did have a chest x-ray mild vascular congestion patient was started on Omnicef infectious disease was consulted concerning for pneumonia Review of Systems Positive point and negatives has been mentioned in the HPI, complete review of systems was performed and all other systems are negative Past Medical History Past Medical History: Heart Failure, GERD/Reflux, Hyperlipidemia, Hypertension, Musculoskeletal Disorder, Osteoarthritis (OA) Additional Past Medical History / Comment(s): esophageal constriction in the past, aortic valve stenosis, RLS, past hx. of compression fx. in back after a fall, chronic back pain, dry cough - has seen Dr. 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 ago, smoked for 20 yrs. <1/2ppd Past Drug Use History: None Reported - Past Family History Mother Family Medical History: No Reported History, Hypertension Father Family Medical History: No Reported History, Hypertension Medications and Allergies Home Medications Medication Instructions Recorded Confirmed Type Ezetimibe [Zetia] 10 mg PO DAILY 11/02/21 01/07/25 History Gabapentin [Neurontin] 400 mg PO QID 11/02/21 01/07/25 History HYDROcodone/APAP 10-325MG [Burton 1 tab PO Q6H PRN 11/02/21 01/07/25 History 10-325] Lansoprazole 30 mg PO DAILY 11/02/21 01/07/25 History Meloxicam [Mobic] 15 mg PO DAILY 11/02/21 01/07/25 History Metoprolol Tartrate [Lopressor] 25 mg PO BID 11/02/21 01/07/25 History lisinopriL [Zestril] 20 mg PO DAILY 11/02/21 01/07/25 History modafiniL [Provigil] 200 mg PO DAILY 11/02/21 01/07/25 History rOPINIRole HCL [Requip] 4 mg PO BID 11/02/21 01/07/25 History Rosuvastatin [Crestor] 10 mg PO DAILY 10/17/23 01/07/25 History Pramipexole [Mirapex] 0.5 mg PO HS 11/26/24 01/07/25 History Omeprazole 40 mg PO DAILY #30 cap 11/30/24 01/07/25 Rx Albuterol Sulfate [Albuterol 1 puff INHALATION RT-Q4H PRN 12/15/24 01/07/25 History Sulfate Hfa] Aspirin 81 mg PO BID 01/01/25 01/07/25 History Fluticasone/Umeclidin/Vilanter 1 puff INHALATION RT-DAILY 01/02/25 01/07/25 History [Trelegy Ellipta 100-62.5-25] Furosemide [Lasix] 20 mg PO DAILY #30 tab 01/05/25 01/07/25 Rx cefuroxime axetiL [Ceftin] 500 mg PO BID #6 tab 01/05/25 01/07/25 Rx Magnesium (Unknown Otc) 1 dose PO DAILY 01/07/25 01/07/25 History Vitamin C (Unknown Otc) 1 dose PO DAILY 01/07/25 01/07/25 History Vitamin D3 (Unknown Otc) 1 dose PO DAILY 01/07/25 01/07/25 History Vitamin E (Unknown Otc) 1 dose PO DAILY 01/07/25 01/07/25 History Allergies Allergy/AdvReac Type Severity Reaction Status Date / Time No Known Allergies Allergy Verified 01/07/25 06:17 Physical Exam Vitals: Vital Signs Temp Pulse Pulse Resp BP BP Pulse Ox 01/07/25 09:07 72 16 01/07/25 07:09 97.5 F L 72 16 105/62 94 L 01/07/25 06:40 98.0 F 75 18 120/70 91 L 01/07/25 05:43 18 01/07/25 05:39 78 18 144/71 97 01/07/25 05:37 80 01/07/25 05:24 78 01/07/25 04:34 98.8 F 74 16 121/72 97 01/07/25 03:41 75 01/07/25 03:32 73 01/07/25 01:52 100.0 F H 89 18 129/62 88 L Intake and Output 01/06/25 01/07/25 01/07/25 22:59 06:59 14:59 Other: # Voids 1 Weight 74.389 kg GENERAL DESCRIPTION: Elderly male up in bed, no distress. No tachypnea or accessory muscle of respiration use. HEENT: Shows Pallor , no scleral icterus. Oral mucous membrane is dry. No pharyngeal erythema or thrush NECK: Trachea central, no thyromegaly. LUNGS: Unlabored breathing. Decreased breath sound at the base HEART: S1, S2, regular rate and rhythm. No loud murmur ABDOMEN: Soft, no tenderness , guarding or rigidity, no organomegaly EXTREMITIES: No edema of feet. SKIN: No rash, no masses palpable. NEUROLOGICAL: The patient is awake, alert, oriented x3, mood and affect normal. Results CBC & Chem 7: 01/07/25 02:55 01/07/25 02:55 Labs: Abnormal Lab Results - Last 24 Hours (Table) 01/07/25 01/07/25 Range/Units 02:55 02:55 RBC 4.10 L (4.40-5.60) 10*6/uL Hgb 11.4 L (13.0-17.0) g/dL Hct 34.8 L (39.6-50.0) % MPV 9.3 L (9.5-12.2) fL Lymphocytes # 0.89 L (0.90-5.00) 10*3/uL Monocytes # 1.10 H (0.20-1.00) 10*3/uL Eosinophils # 0.38 H (0.04-0.35) 10*3/uL Sodium 136 L (137-145) mmol/L Chloride 96 L (98-107) mmol/L BUN 31 H (9-20) mg/dL AST 79 H (17-59) U/L ALT 154 H (4-49) U/L Assessment and Plan (1) Pneumonia Current Visit: Yes Status: Acute Code(s): J18.9 - PNEUMONIA, UNSPECIFIED ORGANISM SNOMED Code(s): 459768918 Plan: 1patient presented to hospital with increasing shortness of breath he did have a cough bringing some yellow sputum did have a low-grade fever concerning for possible recurrent aspiration pneumonitis as the patient did have history of dysphagia, Schatzki ring, and previous balloon dilation. 2-we will try to obtain sputum for Gram stain and culture 3-switching by therapy to Zosyn 3.375 g every 8 hours 4-aspiration precautions We will follow on clinical condition and cultures to further adjust medication if needed Thank you for this consultation we will follow the patient along with you Dictation was produced using [employer] dictation software. please excuse any grammatical, word or spelling errors. Time with Patient: Greater than 30
--- NOTE | 2025-01-08 07:20 | XR ---
EXAMINATION TYPE: XR chest 1V portable DATE OF EXAM: 01/08/2025 7:15 AM COMPARISON: 01/07/2025 CLINICAL INDICATION: Male, 79 years old with history of CHF, TECHNIQUE: XR chest 1V portable view(s) obtained. FINDINGS: The heart size is normal. The pulmonary vasculature is mildly prominent. Few scattered increased lung infiltrates are present bilaterally. Correlate for congestive heart [place] lure differential diagnosis should include atypical pneumonia Advanced degenerative changes in the right shoulder IMPRESSION: 1. Congestive heart failure versus atypical pneumonia. Continued follow-up is recommended [facility] Prema Wong, , 01/08/2025 7:18 AM
[2025-01-08] MEDS ORDERED: NON FORMULARY DRUG (Fluticasone/Umeclidin/Vilanter [Trelegy Ellipta 100-62.5-25] 1 EACH Bl INHALATION SCH (08:00)
[2025-01-08] MEDS: TIOTROPIUM 2.5 MCG INHALER INHALATION SCH (09:55)
--- NOTE | 2025-01-08 12:18 | P.PN ---
Subjective Progress Note Date: 01/08/25 This is a pleasant 79-year-old male with past medical history significant for dysphagia, esophageal strictures with previous balloon dilation, hiatal hernia, GERD, recurrent pneumonias, asbestosis, hypertension, hyperlipidemia, aortic valve stenosis status post TAVR, and recent left shoulder replacement. The patient has been treated on several occasions for recurrent pneumonias since June,. Chest CT from 07/15/2024 demonstrated patchy infiltrates throughout the right lung. Pleural-based calcifications along the right diaphragm. Patient does have ongoing issues with dysphagia, Schatzki ring, and previous balloon dilation. Most recent EGD done 11/29/2024 remarkable for mild acute on chronic esophagitis. No strictures, dysplasia. More recently, patient had a hospitalization November 2024 for recurrent right-sided pneumonia. Sputum was positive during a previous hospitalization for Serratia marcescens and Gretchen. He was admitted again on January 01 through January 05, 2025 for similar symptoms. Initial procalcitonin was 14.2 and improved to 1.2. His discharge chest x-ray showed mild diffuse pulmonary edema that showed improvement and patchy infiltrates suspected related to pulmonary edema. He was discharged home on Ceftin and diuretics. He returned again to the emergency room early this morning January 07, 2025 with recurrent shortness of breath. Today's chest x-ray shows cardiomegaly with mild pulmonary vascular congestion. Question of possible aspiration. White count 9.7. Hemoglobin 11.4. Platelets 272. Sodium 136. Potassium 4.4. Bicarb 29. BUN 31. Creatinine 0.81. Glucose 83. He is currently awake and alert resting flat in bed. He is maintaining O2 saturation in the mid 90s on 3 L/min per nasal cannula. He is afebrile. Hemodynamically stable. He has a dry n onproductive cough. He has been initiated on Symbicort, albuterol, Spiriva. Continued on oral diuretics. The patient is seen today January 08, 2025 in follow-up on the regular medical floor. He is currently sitting up in a chair at the bedside. Awake and alert in no acute distress. Continues with a loose nonproductive cough. Maintaining good O2 saturation in the high 90s on 3 L/min per nasal cannula. Has been afebrile. Hemodynamically stable. Follow-up chest x-ray reveals mildly prominent pulmonary vasculature. Few scattered infiltrates bilaterally. No new labs today. He remains on albuterol, Symbicort, Spiriva. Antibiotics in the form of Zosyn. Remains on oral diuretics. Objective - Vital Signs Vital signs: Vital Signs Temp 98.8 F 01/08/25 07:57 Pulse 59 L 01/08/25 07:57 Resp 18 01/08/25 07:57 BP 139/86 01/08/25 07:57 Pulse Ox 93 L 01/08/25 07:57 FiO2 Intake & Output 01/07/25 01/08/25 01/08/25 18:59 06:59 18:59 Intake Total 540 Balance 540 Intake: Oral 540 Other: Voiding Method Toilet Urinal # Voids 2 4 - Exam GENERAL EXAM: Alert, pleasant 81-year-old male, sitting up in a chair, on 3 L nasal cannula, comfortable in no apparent distress. HEAD: Normocephalic. EYES: Normal reaction of pupils, equal size. NOSE: Clear with pink turbinates. THROAT: No erythema or exudates. NECK: No masses, no JVD. CHEST: No chest wall deformity. LUNGS: Equal air entry with few scattered rhonchi. CVS: S1 and S2 normal with no audible murmur, regular rhythm. ABDOMEN: No hepatosplenomegaly, normal bowel sounds, no guarding or rigidity. SPINE: No scoliosis or deformity SKIN: No rashes CENTRAL NERVOUS SYSTEM: No focal deficits, tone is normal in all 4 extremities. EXTREMITIES: There is no peripheral edema. No clubbing, no cyanosis. Peripheral pulses are intact. - Labs CBC & Chem 7: 01/07/25 02:55 01/07/25 02:55 Labs: Abnormal Lab Results - Last 24 Hours (Table) 01/07/25 Range/Units 11:30 Procalcitonin 0.58 H (0.02-0.50) ng/mL Assessment and Plan Assessment: Acute hypoxic respiratory failure secondary to suspected fluid volume overload versus aspiration pneumonia History of recurrent right-sided pneumonia, sputum culture previously positive for Gretchen and Serratia marcescens on 11/28/2024, patient has had multiple hospitalizations, most recently discharged again on January 05, 2025 on cefdinir Suspect acute CHF exacerbation, with unknown ejection fraction Recurrent dysphagia with a history of esophageal strictures and Schatzki ring, most recent undergoing balloon dilation May,. Repeat EGD done On 11/29/2024 remarkable findings for mild esophagitis. No noted esophageal strictures, hernias. 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 to twice daily Continue cefdinir Procalcitonin 0.58 Continue albuterol, Symbicort, Spiriva Titrate down the FiO2 as tolerated Chest x-ray not showing much improvement We will plan for bronchoscopy with BAL tomorrow Plan discussed with patient and who is at the bedside We will continue to follow I have personally seen and examined the patient, performed the documentation and the assessment and plan as written. Number of minutes spent on the visit: 10 Dictation was produced using [employer] dictation software. Please excuse any grammatical, word or spelling errors.
--- NOTE | 2025-01-08 14:08 | P.PN ---
Progress Note - Text Progress Note Date: 01/08/25 Chief Complaint: Cough Very pleasant 79-year-old male , follows with Dr. Stewart Ramos. Network Support Engineer Dr. Oliveira and transportation maintenance worker Dr. Monson. Medical conditions include GERD, hypertension, hyperlipidemia, osteoarthritis, esophageal stricture constriction in the past, aortic valve stenosis, restless leg syndrome. Chronic back pain from a fall in his younger days. Ex-smoker. EGD with Dr. Spring on November 29. No stricture found Patient recently had about 4 bouts of pneumonia. There has been a question about aspiration also. 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 There was noted to fill completely with hard solid textures. Patient was recommended regular texture diet with thin liquids small bites and sips liquid alternation and upright positioning for 30 to 45 minutes after intake. Recent EGD by general surgery Dr. Spring was unremarkable Patient recently was admitted on January 01 and discharged on January 05, with pneumonia. Patient has a elevated procalcitonin of 14.2 did come down to 1.2 prior to discharge. Patient doing rather well upon discharge. Lungs were clear. Pulse ox on room air was 94% Patient yet again presents with feeling tired. Congested cough. Some sputum production. Some shortness of breath. It was discussed with Dr. Campos prior to discharge the patient may need a bronchoscopy if the symptoms recur. Patient also discharged on dose of Lasix. January 08: Some congested cough. Some sputum. On IV Zosyn. Pulmonary is planning for bronchoscopy tomorrow. I spoke to Genna the speech therapist. She did discuss about the modified barium swallow on recent admission. No need for further testing. Zenker's diverticulum will be seen outpatient. Remains on p.o. Lasix. Will fluid restriction. Procalcitonin 0.58 Active Medications Acetaminophen (Acetaminophen Tab 325 Mg Tab) 650 mg PO Q6HR PRN PRN Reason: Mild Pain or Fever > 100.5 Hydrocodone Bitart/Acetaminophen (Hydrocodone/Apap 10-325mg 1 Each Tab) 1 each PO Q6H PRN PRN Reason: Pain Last Admin: 01/08/25 10:18 Dose: 1 each Albuterol Sulfate (Albuterol Nebulized 2.5 Mg/3 Ml) 2.5 mg INHALATION RT-Q4H PRN PRN Reason: Shortness Of Breath Last Admin: 01/08/25 12:30 Dose: 2.5 mg Ascorbic Acid (Ascorbic Acid 500 Mg Tab) 500 mg PO DAILY [facility] Last Admin: 01/08/25 09:02 Dose: 500 mg Aspirin (Aspirin 81 Mg) 81 mg PO BID [facility] Last Admin: 01/08/25 09:03 Dose: 81 mg Atorvastatin Calcium (Atorvastatin 20 Mg Tab) 20 mg PO DAILY [facility] Last Admin: 01/08/25 09:02 Dose: 20 mg Budesonide/Formoterol Fumarate (Symbicort 160-4.5 Mcg Inhaler) 2 puff INHALATION RT-BID [facility] Last Admin: 01/08/25 09:55 Dose: Not Given Cholecalciferol (Cholecalciferol 25 Mcg (1000 Iu) Tablet) 25 mcg PO DAILY [facility] Last Admin: 01/08/25 09:02 Dose: 25 mcg Ezetimibe (Ezetimibe 10 Mg Tab) 10 mg PO DAILY [facility] Last Admin: 01/08/25 09:02 Dose: 10 mg Furosemide (Furosemide 20 Mg Tab) 20 mg PO BID@0900,1600 [facility] Last Admin: 01/08/25 09:02 Dose: 20 mg Gabapentin (Gabapentin 400 Mg Cap) 400 mg PO QID [facility] Last Admin: 01/08/25 12:14 Dose: 400 mg Sodium Chloride (Saline 0.9%) 1,000 mls @ 20 mls/hr IV .Q24H [facility] Last Admin: 01/08/25 06:06 Dose: Not Given Piperacillin Sod/Tazobactam (Sod 3.375 gm/ Sodium Chloride) 100 mls @ 25 mls/hr IVPB Q8HR [facility]; Protocol Last Admin: 01/08/25 09:01 Dose: 25 mls/hr Lisinopril (Lisinopril 20 Mg Tab) 20 mg PO DAILY [facility] Last Admin: 01/08/25 09:03 Dose: 20 mg Magnesium Oxide (Magnesium Oxide 400 Mg Tab) 400 mg PO DAILY [facility] Last Admin: 01/08/25 09:02 Dose: 400 mg Meloxicam (Meloxicam 7.5 Mg Tab) 15 mg PO DAILY [facility] Last Admin: 01/08/25 09:02 Dose: 15 mg Metoprolol Tartrate (Metoprolol Tartrate 25 Mg Tab) 25 mg PO BID [facility] Last Admin: 01/08/25 09:03 Dose: Not Given Modafinil (Modafinil 200 Mg Tab) 200 mg PO DAILY [facility] Last Admin: 01/08/25 09:02 Dose: 200 mg Naloxone HCl (Naloxone 0.4 Mg/Ml 1 Ml Vial) 0.2 mg IV Q2M PRN PRN Reason: Opioid Reversal Pantoprazole Sodium (Pantoprazole 40 Mg Tablet) 40 mg PO DAILY [facility] Last Admin: 01/08/25 09:03 Dose: 40 mg Pramipexole Dihydrochloride (Pramipexole 0.5 Mg Tab) 0.5 mg PO HS [facility] Last Admin: 01/07/25 21:44 Dose: 0.5 mg Ropinirole HCl (Ropinirole Hcl 4 Mg Tablet) 4 mg PO BID [facility] Last Admin: 01/08/25 09:04 Dose: 4 mg Tiotropium Ranger (Tiotropium 2.5 Mcg Inhaler) 2 puff INHALATION RT-DAILY [facility] Last Admin: 01/08/25 09:55 Dose: Not Given Vitamin E (Vitamin E (Dl,Tocopheryl Acet) 400 Unit (180 Mg) Cap) 400 unit PO DAILY [facility] Last Admin: 01/08/25 09:04 Dose: 400 unit Social history: Smoked less than a pack half a pack a day for 20 years stopped about 40 years ago. 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 . Physical examination: VITAL SIGNS: 98.8, 59, 18, 1 39-86, 93% room GENERAL: BMI 28.2, reclining in bed EYES: Pupils equal. Conjunctiva hugh l. HEENT: External appearance of nose and ears normal, oral cavity grossly normal. NECK: JVD not raised; masses not palpable. HEART: First and second heart sounds are normal; no edema. LUNGS: Respiratory rate increased, some basal coarse sounds ABDOMEN: Soft, nontender, liver spleen not palpable, no masses palpable. PSYCH: AO x 3, mood affect normal MUSCULOSKELETAL:No Clubbing/cyanosis;muscles-grossly intact. OA. Limited range of motion left shoulder. Left arm in a sling INVESTIGATIONS, reviewed in the clinical context: IgG 1184. IgA 340. IgM 126 January 07: White count 9.7 hemoglobin 11.4 platelets 272 sodium 136 potassium 4.4 creatinine 0.81 troponin I less than 0.012 proBNP 2190 EKG tracing personally reviewed by me-normal sinus rhythm Chest x-ray film personally reviewed by me-some scattered infiltrates. Questionable venous prominence Recent T-cell process cells 108 total T cells 421 absolute CD4 helper cell 301 2D echo: EF 55 to 60%. Assessment plan: - Acute shortness breath with cough. Appears again to be combination of possible pneumonia which could be aspiration and/or fluid overload. Patient is on oral Ceftin. Also oral Lasix. Recent modified barium swallow was unremarkable. 2D echo showed preserved LV function. -Recent multilobar pneumonia suspect gram-negative organism, recurrent episode pneumonia: Patient doing much better when he left 2 days ago. Now with worsening respiratory symptoms Continue Ceftin For bronchoscopy and lavage - Low absolute CD4 helper, low total T cells, low T suppressor cells.: Suggest immunodeficiency Immunology panel to include IgG, IgA, IgM: All within normal limits Hematology consult pending - Zenker's diverticulum. This did fill up with food on barium swallow Patient to follow-up with ENT outpatient, Dr. Juan Luis Dwyer -History of dysphagia. Patient is at multiple esophageal dilatation in the [facility] Dr. Spring did EGD November 2024. No stricture identified -Given recurrent pneumonia, check immune deficiency panel -Restless leg syndrome Requip 4 mg twice daily -Chronic low back pain from prior injury Neurontin 400 mg 3 times daily as needed. Mobic. Alta 10. - Left shoulder dysfunction. Being followed by orthopedics outpatient Left arm in a sling -COPD in a previous smoker DuoNeb 3 times daily -GERD Lansoprazole 30 mg daily -Essential hypertension, Zestril Lopressor -Hyperlipidemia Zetia 10 mg a day -Full code For bronchoscopy tomorrow. Pending hematology consult. Discussed with the patient . Continue current medications. Past Medical History Past Medical History: Heart Failure, GERD/Reflux, Hyperlipidemia, Hypertension, Musculoskeletal Disorder, Osteoarthritis (OA) Additional Past Medical History / Comment(s): esophageal constriction in the past, aortic valve stenosis, RLS, past hx. of compression fx. in back after a fall, chronic back pain, dry cough - has seen Dr. 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 ago, smoked for 20 yrs. <1/2ppd Past Drug Use History: None Reported
--- NOTE | 2025-01-08 14:43 | P.CONS ---
History of Present Illness - Reason for Consult Consult date: 01/08/25 Low T cells Requesting physician: Charles Donnelly - Chief Complaint pneumonia - History of Present Illness Mr. Sung is an 79-year-old male patient that we have been asked to see because of abnormal T-helper cells and CD4 counts with frequent, recurrent bouts of pneumonia. Patient and are reporting about 7-8 bouts of pneumonia in the last 6-8 months. Patient has treated with antibiotics, steroids, respiratory medications but, within a few days of completing therapies, he is symptomatic again. Patient was just recently DC'd, within few days he "could not breathe". He is also finding that the cough is persistent, he denies any significant expectoration. He denies any weight loss, night sweats, fevers, chills, lymph node swellings, chest pain, nausea or vomiting, appetite is fairly decent, no acute changes in bowel or bladder habits. Patient does not have any history of blood disorders. He does have a history of asbestos exposure, a remote history of smoking quitting 30+ years ago. Patient is becoming frustrated with the recurrent illness as the repeat hospitalizations are "financially killing us" per his . Laboratory investigations for coronavirus, influenza, RSV are all negative. T suppressor cells and total T cells were noted to be low 108/421 respectively. Absolute CD4 helper slightly low at 301.Patient has mild anemia with a hemoglobin of 11.4. Lymphocytes just below normal at 0.89. Monocytes just slightly elevated at 1.1, eosinophils are also slightly elevated at 0.38. Immunoglobulins ordered, normal IgG, IgA, IgM levels. Patient in general states he feels good, he is active. He had shoulder surgery earlier this year and has done well. No other c/o. Review of Systems 14 point review of systems is negative except as stated in HPI Past Medical History Past Medical History: Heart Failure, GERD/Reflux, Hyperlipidemia, Hypertension, Musculoskeletal Disorder, Osteoarthritis (OA) Additional Past Medical History / Comment(s): esophageal constriction in the past, aortic valve stenosis, RLS, past hx. of compression fx. in back after a fall, chronic back pain, dry cough - has seen Dr. oMnson recently History of Any Multi-Drug Resistant Organisms: None Reported Past Surgical History: Cardiac Valve Replacement, Heart Catheterization, Joint Replacement Additional Past Surgical History / Comment(s): colonoscopy, EGD, МАРИНА, transcathe ter aortic valve replacement completed 01/06/22, Left Shoulder reverse replacement Past Anesthesia/Blood Transfusion Reactions: No Reported Reaction Past Psychological History: No Psychological Hx Reported Smoking Status: Former smoker Past Alcohol Use History: Occasional Additional Past Alcohol Use History / Comment(s): quit smoking 40 yrs. ago, smoked for 20 yrs. <1/2ppd Past Drug Use History: None Reported - Past Family History Mother Family Medical History: No Reported History, Hypertension Father Family Medical History: No Reported History, Hypertension Medications and Allergies Home Medications Medication Instructions Recorded Confirmed Type Ezetimibe [Zetia] 10 mg PO DAILY 11/02/21 01/07/25 History Gabapentin [Neurontin] 400 mg PO QID 11/02/21 01/07/25 History HYDROcodone/APAP 10-325MG [[place] 1 tab PO Q6H PRN 11/02/21 01/07/25 History 10-325] Lansoprazole 30 mg PO DAILY 11/02/21 01/07/25 History Meloxicam [Mobic] 15 mg PO DAILY 11/02/21 01/07/25 History Metoprolol Tartrate [Lopressor] 25 mg PO BID 11/02/21 01/07/25 History lisinopriL [Zestril] 20 mg PO DAILY 11/02/21 01/07/25 History modafiniL [Provigil] 200 mg PO DAILY 11/02/21 01/07/25 History rOPINIRole HCL [Requip] 4 mg PO BID 11/02/21 01/07/25 History Rosuvastatin [Crestor] 10 mg PO DAILY 10/17/23 01/07/25 History Pramipexole [Mirapex] 0.5 mg PO HS 11/26/24 01/07/25 History Omeprazole 40 mg PO DAILY #30 cap 11/30/24 01/07/25 Rx Albuterol Sulfate [Albuterol 1 puff INHALATION RT-Q4H PRN 12/15/24 01/07/25 History Sulfate Hfa] Aspirin 81 mg PO BID 01/01/25 01/07/25 History Fluticasone/Umeclidin/Vilanter 1 puff INHALATION RT-DAILY 01/02/25 01/07/25 History [Trelegy Ellipta 100-62.5-25] Furosemide [Lasix] 20 mg PO DAILY #30 tab 01/05/25 01/07/25 Rx cefuroxime axetiL [Ceftin] 500 mg PO BID #6 tab 01/05/25 01/07/25 Rx Magnesium (Unknown Otc) 1 dose PO DAILY 01/07/25 01/07/25 History Vitamin C (Unknown Otc) 1 dose PO DAILY 01/07/25 01/07/25 History Vitamin D3 (Unknown Otc) 1 dose PO DAILY 01/07/25 01/07/25 History Vitamin E (Unknown Otc) 1 dose PO DAILY 01/07/25 01/07/25 History Allergies Allergy/AdvReac Type Severity Reaction Status Date / Time No Known Allergies Allergy Verified 01/07/25 06:17 Physical Exam Vitals: Vital Signs Temp Pulse Pulse Resp BP Pulse Ox 01/08/25 07:57 98.8 F 59 L 18 139/86 93 L 01/08/25 00:20 97.9 F 59 L 16 116/72 97 01/07/25 21:45 18 01/07/25 20:00 98.1 F 67 17 118/75 95 01/07/25 16:14 72 01/07/25 16:01 76 01/07/25 14:00 98.6 F 68 18 119/77 96 01/07/25 09:07 72 16 Intake and Output 01/07/25 01/08/25 01/08/25 22:59 06:59 14:59 Intake Total 540 Balance 540 Intake: Oral 540 Other: # Voids 2 4 Results CBC & Chem 7: 01/07/25 02:55 01/07/25 02:55 Labs: Abnormal Lab Results - Last 24 Hours (Table) 01/07/25 Range/Units 11:30 Procalcitonin 0.58 H (0.02-0.50) ng/mL Assessment and Plan Plan: Recurrent pneumonia, low T helper cells - As stated in HPI patient has had at least 7-8 bouts of pneumonia in the last 6 to 8 months. - On his most recent hospitalization, just over a week ago, IM had done some additional laboratory investigations to see if there was an underlying immune system reason for patient having recurrent infections. CD4, and T-helper cells were noted to be lower than normal. In the geriatric population these particular types of white blood cells can unfortunately be lower as a norm but, to ensure no missed underlying cause, additional workup will be ordered to assess these lower counts. Acutely though, nothing to be done other than treat the underlying infection. -Iron studies, nutritional workup, paraproteinemia workup also ordered. Immunoglobulins were checked and are all WNL -Patient is going to have a bronchoscopy, this is very reasonable to assess if there is any atypical infection. All patient and his 's questions were answered to their satisfaction. They verbalized understanding and agree with further workup. Doctor attests: I performed a history and physical examination of this patient, developed impression and plan of care. Discussed with dictator. I agree with dictators note, documented as a scribe.
--- NOTE | 2025-01-08 14:54 | P.PN ---
Subjective Progress Note Date: 01/08/25 Principal diagnosis: Reason for follow-up in the morning question of aspiration Patient is a 79-year-old male with a past medical history significant for Heart Failure, GERD/Reflux, Hyperlipidemia, Hypertension, Musculoskeletal Disorder, Osteoarthritis (OA) with recent recurrent admission to hospital for pneumonia concerning for possible aspiration. On today's evaluation that is 01/08/2025, Patient is afebrile this morning patient denies having any chest pain shortness of breath cough has been about the same have bring up some sputum, the patient is currently on room air, patient denies any abdominal pain no diarrhea no nausea no vomiting. No new lab has been obtained today blood cultures pending sputum not collected Objective - Vital Signs Vital signs: Vital Signs Temp 98.8 F 01/08/25 07:57 Pulse 59 L 01/08/25 07:57 Resp 18 01/08/25 07:57 BP 139/86 01/08/25 07:57 Pulse Ox 93 L 01/08/25 07:57 FiO2 Intake & Output 01/07/25 01/08/25 01/08/25 18:59 06:59 18:59 Intake Total 540 Balance 540 Intake: Oral 540 Other: Voiding Method Toilet Urinal # Voids 2 4 - Exam GENERAL DESCRIPTION: An elderly male lying in bed in no distress RESPIRATORY SYSTEM: Unlabored breathing , decreased breath sounds at bases HEART: S1 S2 regular rate and rhythm , ABDOMEN: Soft , no tenderness EXTREMITIES: No edema feet - Labs CBC & Chem 7: 01/07/25 02:55 01/07/25 02:55 Labs: Abnormal Lab Results - Last 24 Hours (Table) 01/07/25 Range/Units 11:30 Procalcitonin 0.58 H (0.02-0.50) ng/mL Assessment and Plan (1) Pneumonia Current Visit: Yes Status: Acute Code(s): J18.9 - PNEUMONIA, UNSPECIFIED ORGANISM SNOMED Code(s): 049888892 Plan: 1patient presented to hospital with increasing shortness of breath he did have a cough bringing some yellow sputum did have a low-grade fever concerning for possible recurrent aspiration pneumonitis as the patient did have history of dysphagia, Schatzki ring, and previous balloon dilation. 2-sputum culture have been requested again blood culture negative so far 3patient to be treated with Zosyn while waiting for the culture to finalize Dictation was produced using [employer] dictation software. please excuse any grammatical, word or spelling errors. Time with Patient: Less than 30
[2025-01-08 15:10] LABS: Reticulocyte % 1.39 % (0.10-1.80)
[2025-01-08 15:14] LABS: Protein, Total 7.1 g/dL (6.2-8.2)
[2025-01-08 16:20] LABS: HIV 2 AB Non-Reactive (Non-Reactive); HIV AB P24 Non-Reactive (Non-Reactive); HIV P24 AG Non-Reactive (Non-Reactive)
[2025-01-08 17:05] LABS: Vitamin B12 >3600.0 pg/mL (200.0-944.0)
[2025-01-09 04:19] LABS: Basophils # (A) 0.03 10*3/uL (0.00-0.10); Basophils % (A) 0.5 %; Eosinophils # (A) 0.32 10*3/uL (0.04-0.35); HCT 33.7 % (39.6-50.0); HGB 10.7 g/dL (13.0-17.0); Lymphocytes # (A) 1.27 10*3/uL (0.90-5.00); MCH 27.5 pg (27.0-32.0); MCHC 31.8 g/dL (32.0-37.0); MCV 86.6 fL (80.0-97.0); Mean Platelet Volume 9.1 fL (9.5-12.2); Monocytes # (A) 0.74 10*3/uL (0.20-1.00); Monocytes % (A) 11.6 %; Neutrophils # (A) 3.97 10*3/uL (1.80-7.70); Neutrophils % (A) 62.4 %; Platelet Count 243 10*3/uL (140-440); RBC 3.89 10*6/uL (4.40-5.60); RDW 15.6 % (11.5-14.5); WBC 6.36 10*3/uL (4.50-10.00)
[2025-01-09] MEDS: DICLOFENAC SODIUM GEL 100 GM TUBE TOPICAL SCH (10:48)
[2025-01-09] MEDS: LACTATED RINGERS 1,000 ML IV ONE (12:01)
[2025-01-09] MEDS ORDERED: LIDOCAINE 1% INJ 10MG/ML (20 ML MDV) ONE (12:04)
[2025-01-09] MEDS ORDERED: PROPOFOL 10 MG/ML 20 ML VIAL IV ONE (12:04)
--- NOTE | 2025-01-09 12:27 | P.PN ---
Subjective Progress Note Date: 01/09/25 Principal diagnosis: Reason for follow-up in the morning question of aspiration Patient is a 79-year-old male with a past medical history significant for Heart Failure, GERD/Reflux, Hyperlipidemia, Hypertension, Musculoskeletal Disorder, Osteoarthritis (OA) with recent recurrent admission to hospital for pneumonia concerning for possible aspiration. On today's evaluation that is 01/09/2025,the patient denies any fever or any chills, patient is breathing comfortably on room air, the patient denies chest pain shortness of breath and cough is decreased in intensity, patient denies abdominal pain, no nausea vomiting or diarrhea. Patient white count 6.36 HIV testing negative immunoglobin levels normal sputum cultures pending Objective - Vital Signs Vital signs: Vital Signs Temp 98 F 01/09/25 08:00 Pulse 64 01/09/25 08:00 Resp 16 01/09/25 08:00 BP 94/60 01/09/25 08:00 Pulse Ox 91 L 01/09/25 08:00 FiO2 Intake & Output 01/08/25 01/09/25 01/09/25 18:59 06:59 18:59 Intake Total 200 Balance 200 Intake: IV 200 Other: Voiding Method Toilet Toilet Urinal Urinal # Voids 2 3 - Exam GENERAL DESCRIPTION: An elderly male lying in bed in no distress RESPIRATORY SYSTEM: Unlabored breathing , decreased breath sounds at bases HEART: S1 S2 regular rate and rhythm , ABDOMEN: Soft , no tenderness EXTREMITIES: No edema feet - Labs CBC & Chem 7: 01/09/25 04:05 01/07/25 02:55 Labs: Abnormal Lab Results - Last 24 Hours (Table) 01/08/25 01/09/25 Range/Units 09:46 04:05 RBC 3.89 L (4.40-5.60) 10*6/uL Hgb 10.7 L (13.0-17.0) g/dL Hct 33.7 L (39.6-50.0) % MCHC 31.8 L (32.0-37.0) g/dL RDW 15.6 H (11.5-14.5) % MPV 9.1 L (9.5-12.2) fL Vitamin B12 >3600.0 H (200.0-944.0) pg/mL Microbiology - Last 24 Hours (Table) 01/08/25 12:16 Gram Stain - Preliminary Sputum Sputum Culture - Preliminary 01/07/25 02:55 Blood Culture - Preliminary Blood Assessment and Plan (1) Pneumonia Current Visit: Yes Status: Acute Code(s): J18.9 - PNEUMONIA, UNSPECIFIED ORGANISM SNOMED Code(s): 792737189 Plan: 1patient presented to hospital with increasing shortness of breath he did have a cough bringing some yellow sputum did have a low-grade fever concerning for possible recurrent aspiration pneumonitis as the patient did have history of dysphagia, Schatzki ring, and previous balloon dilation. 2-sputum culture currently pending and patient scheduled for bronchoscopy lavage this afternoon 3patient to be treated with Zosyn while waiting for the workup to be completed Dictation was produced using [employer] dictation software. please excuse any grammatical, word or spelling errors. Time with Patient: Less than 30
[2025-01-09] MEDS: LIDOCAINE 2% INJ 20 MG/ML INTRATRACH ONE (12:30)
--- NOTE | 2025-01-09 14:41 | P.PN ---
Subjective Progress Note Date: 01/09/25 This is a pleasant 79-year-old male with past medical history significant for dysphagia, esophageal strictures with previous balloon dilation, hiatal hernia, GERD, recurrent pneumonias, asbestosis, hypertension, hyperlipidemia, aortic valve stenosis status post TAVR, and recent left shoulder replacement. The patient has been treated on several occasions for recurrent pneumonias since June,. Chest CT from 07/15/2024 demonstrated patchy infiltrates throughout the right lung. Pleural-based calcifications along the right diaphragm. Patient does have ongoing issues with dysphagia, Schatzki ring, and previous balloon dilation. Most recent EGD done 11/29/2024 remarkable for mild acute on chronic esophagitis. No strictures, dysplasia. More recently, patient had a hospitalization November 2024 for recurrent right-sided pneumonia. Sputum was positive during a previous hospitalization for Serratia marcescens and Gretchen. He was admitted again on January 01 through January 05, 2025 for similar symptoms. Initial procalcitonin was 14.2 and improved to 1.2. His discharge chest x-ray showed mild diffuse pulmonary edema that showed improvement and patchy infiltrates suspected related to pulmonary edema. He was discharged home on Ceftin and diuretics. He returned again to the emergency room early this morning January 07, 2025 with recurrent shortness of breath. Today's chest x-ray shows cardiomegaly with mild pulmonary vascular congestion. Question of possible aspiration. White count 9.7. Hemoglobin 11.4. Platelets 272. Sodium 136. Potassium 4.4. Bicarb 29. BUN 31. Creatinine 0.81. Glucose 83. He is currently awake and alert resting flat in bed. He is maintaining O2 saturation in the mid 90s on 3 L/min per nasal cannula. He is afebrile. Hemodynamically stable. He has a dry n onproductive cough. He has been initiated on Symbicort, albuterol, Spiriva. Continued on oral diuretics. The patient is seen today January 08, 2025 in follow-up on the regular medical floor. He is currently sitting up in a chair at the bedside. Awake and alert in no acute distress. Continues with a loose nonproductive cough. Maintaining good O2 saturation in the high 90s on 3 L/min per nasal cannula. Has been afebrile. Hemodynamically stable. Follow-up chest x-ray reveals mildly prominent pulmonary vasculature. Few scattered infiltrates bilaterally. No new labs today. He remains on albuterol, Symbicort, Spiriva. Antibiotics in the form of Zosyn. Remains on oral diuretics. The patient is seen today January 09, 2025 in follow-up on the regular medical floor. He is awake and alert in no acute distress. Maintaining O2 saturations in the 90s on room air oxygen. Has been afebrile. Hemodynamically stable. Blood cultures showing no growth. Sputum culture pending. White count 6.3. Hemoglobin 10.7. Platelets 243. Procalcitonin negative at 0.36. HIV screening negative. He remains on albuterol, Symbicort, Spiriva. Antibiotics in the form of Zosyn. Remains on oral diuretics. Plan is for bronchoscopy with BAL today. Objective - Vital Signs Vital signs: Vital Signs Temp 98 F 01/09/25 13:57 Pulse 105 H 01/09/25 13:57 Resp 18 01/09/25 13:57 BP 131/86 01/09/25 13:57 Pulse Ox 93 L 01/09/25 13:57 FiO2 Intake & Output 01/08/25 01/09/25 01/09/25 18:59 06:59 18:59 Intake Total 200 Balance 200 Intake: IV 200 Other: Voiding Method Toilet Toilet Urinal Urinal # Voids 2 3 - Exam GENERAL EXAM: Alert, 81-year-old male, resting in bed, on 3 L nasal cannula, comfortable in no apparent distress. HEAD: Normocephalic. EYES: Normal reaction of pupils, equal size. NOSE: Clear with pink turbinates. THROAT: No erythema or exudates. NECK: No masses, no JVD. CHEST: No chest wall deformity. LUNGS: Equal air entry with few scattered rhonchi. CVS: S1 and S2 normal with no audible murmur, regular rhythm. ABDOMEN: No hepatosplenomegaly, normal bowel sounds, no guarding or rigidity. SPINE: No scoliosis or deformity SKIN: No rashes CENTRAL NERVOUS SYSTEM: No focal deficits, tone is normal in all 4 extremities. EXTREMITIES: Left upper extremity sling in place. There is no peripheral edema. No clubbing, no cyanosis. Peripheral pulses are intact. - Labs CBC & Chem 7: 01/09/25 04:05 01/07/25 02:55 Labs: Abnormal Lab Results - Last 24 Hours (Table) 01/08/25 01/09/25 Range/Units 09:46 04:05 RBC 3.89 L (4.40-5.60) 10*6/uL Hgb 10.7 L (13.0-17.0) g/dL Hct 33.7 L (39.6-50.0) % MCHC 31.8 L (32.0-37.0) g/dL RDW 15.6 H (11.5-14.5) % MPV 9.1 L (9.5-12.2) fL Vitamin B12 >3600.0 H (200.0-944.0) pg/mL Microbiology - Last 24 Hours (Table) 01/07/25 02:55 Blood Culture - Preliminary Blood 01/08/25 12:16 Gram Stain - Preliminary Sputum Sputum Culture - Preliminary Assessment and Plan Assessment: Acute hypoxic respiratory failure secondary to suspected fluid volume overload versus aspiration pneumonia. Plan is for bronchoscopy with BAL today History of recurrent right-sided pneumonia, sputum culture previously positive for Gretchen and Serratia marcescens on 11/28/2024, patient has had multiple hosp italizations, most recently discharged again on January 05, 2025 on cefdinir Suspect acute CHF exacerbation, with unknown ejection fraction Recurrent dysphagia with a history of esophageal strictures and Schatzki ring, most recent undergoing balloon dilation May,. Repeat EGD done On 11/29/2024 remarkable findings for mild esophagitis. No noted esophageal strictures, hernias. 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 to twice daily Continue Zosyn per ID service Continue albuterol, Symbicort, Spiriva Titrate down the FiO2 as tolerated Plan is for bronchoscopy with BAL today We will continue to follow I have personally seen and examined the patient, performed the documentation and the assessment and plan as written. Number of minutes spent on the visit: 10 Dictation was produced using [employer] dictation software. Please excuse any grammatical, word or spelling errors.
[2025-01-09 15:02] LABS: Free Kappa Lt Chain Qnt, Serum 4.07 mg/dL (0.33-1.94); Free Lambda Lt Chain Qnt, Seru 4.66 mg/dL (0.57-2.63)
--- NOTE | 2025-01-09 17:04 | P.PN ---
Progress Note - Text Progress Note Date: 01/09/25 Chief Complaint: Cough Very pleasant 79-year-old male , follows with Dr. Stewart Ramos. Toolroom Helper Dr. Oliveira and shirt trimmer Dr. Monson. Medical conditions include GERD, hypertension, hyperlipidemia, osteoarthritis, esophageal stricture constriction in the past, aortic valve stenosis, restless leg syndrome. Chronic back pain from a fall in his younger days. Ex-smoker. EGD with Dr. Spring on November 29. No stricture found Patient recently had about 4 bouts of pneumonia. There has been a question about aspiration also. 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 There was noted to fill completely with hard solid textures. Patient was recommended regular texture diet with thin liquids small bites and sips liquid alternation and upright positioning for 30 to 45 minutes after intake. Recent EGD by general surgery Dr. Spring was unremarkable Patient recently was admitted on January 01 and discharged on January 05, with pneumonia. Patient has a elevated procalcitonin of 14.2 did come down to 1.2 prior to discharge. Patient doing rather well upon discharge. Lungs were clear. Pulse ox on room air was 94% Patient yet again presents with feeling tired. Congested cough. Some sputum production. Some shortness of breath. It was discussed with Dr. Campos prior to discharge the patient may need a bronchoscopy if the symptoms recur. Patient also discharged on dose of Lasix. January 08: Some congested cough. Some sputum. On IV Zosyn. Pulmonary is planning for bronchoscopy tomorrow. I spoke to Genna the speech therapist. She did discuss about the modified barium swallow on recent admission. No need for further testing. Zenker's diverticulum will be seen outpatient. Remains on p.o. Lasix. Will fluid restriction. Procalcitonin 0.58 January 09: Patient underwent bronchoscopy by Dr. Monson. I spoke to Dr. Monson a lot of yellow secretions on the right lung. He is concerned about aspiration. Patient wants to get opinion from Dr. Edson Moe as patient's had dysphagia before. She will be consulted. Antibiotics to continue. Cultures pending. IV Zosyn . Active Medications Acetaminophen (Acetaminophen Tab 325 Mg Tab) 650 mg PO Q6HR PRN PRN Reason: Mild Pain or Fever > 100.5 Hydrocodone Bitart/Acetaminophen (Hydrocodone/Apap 10-325mg 1 Each Tab) 1 each PO Q6H PRN PRN Reason: Pain Last Admin: 01/09/25 14:28 Dose: 1 each Albuterol Sulfate (Albuterol Nebulized 2.5 Mg/3 Ml) 2.5 mg INHALATION RT-Q4H PRN PRN Reason: Shortness Of Breath Last Admin: 01/08/25 15:57 Dose: 2.5 mg Ascorbic Acid (Ascorbic Acid 500 Mg Tab) 500 mg PO DAILY [facility] Last Admin: 01/09/25 10:57 Dose: Not Given Aspirin (Aspirin 81 Mg) 81 mg PO BID [facility] Last Admin: 01/09/25 10:57 Dose: Not Given Atorvastatin Calcium (Atorvastatin 20 Mg Tab) 20 mg PO DAILY [facility] Last Admin: 01/09/25 10:58 Dose: Not Given Budesonide/Formoterol Fumarate (Symbicort 160-4.5 Mcg Inhaler) 2 puff INHALATION RT-BID [facility] Last Admin: 01/09/25 08:27 Dose: Not Given Cholecalciferol (Cholecalciferol 25 Mcg (1000 Iu) Tablet) 25 mcg PO DAILY [facility] Last Admin: 01/09/25 10:58 Dose: Not Given Diclofenac Sodium (Diclofenac Sodium Gel 100 Gm Tube) 2 gm TOPICAL TID [facility]; Protocol Last Admin: 01/09/25 16:59 Dose: 2 gm Ezetimibe (Ezetimibe 10 Mg Tab) 10 mg PO DAILY [facility] Last Admin: 01/09/25 10:58 Dose: Not Given Furosemide (Furosemide 20 Mg Tab) 20 mg PO BID@0900,1600 [facility] Last Admin: 01/09/25 16:59 Dose: 20 mg Gabapentin (Gabapentin 400 Mg Cap) 400 mg PO QID [facility] Last Admin: 01/09/25 14:27 Dose: 400 mg Sodium Chloride (Saline 0.9%) 1,000 mls @ 20 mls/hr IV .Q24H [facility] Last Admin: 01/09/25 06:13 Dose: 20 mls/hr Piperacillin Sod/Tazobactam (Sod 3.375 gm/ Sodium Chloride) 100 mls @ 25 mls/hr IVPB Q8HR [facility]; Protocol Last Admin: 01/09/25 10:48 Dose: 25 mls/hr Lisinopril (Lisinopril 20 Mg Tab) 20 mg PO DAILY [facility] Last Admin: 01/09/25 10:58 Dose: Not Given Magnesium Oxide (Magnesium Oxide 400 Mg Tab) 400 mg PO DAILY [facility] Last Admin: 01/09/25 10:58 Dose: Not Given Meloxicam (Meloxicam 7.5 Mg Tab) 15 mg PO DAILY [facility] Last Admin: 01/09/25 10:58 Dose: Not Given Metoprolol Tartrate (Metoprolol Tartrate 25 Mg Tab) 25 mg PO BID [facility] Last Admin: 01/09/25 10:59 Dose: Not Given Modafinil (Modafinil 200 Mg Tab) 200 mg PO DAILY [facility] Last Admin: 01/09/25 10:59 Dose: Not Given Naloxone HCl (Naloxone 0.4 Mg/Ml 1 Ml Vial) 0.2 mg IV Q2M PRN PRN Reason: Opioid Reversal Pantoprazole Sodium (Pantoprazole 40 Mg Tablet) 40 mg PO DAILY [facility] Last Admin: 01/09/25 10:59 Dose: Not Given Pramipexole Dihydrochloride (Pramipexole 0.5 Mg Tab) 0.5 mg PO HS [facility] Last Admin: 01/08/25 20:22 Dose: 0.5 mg Ropinirole HCl (Ropinirole Hcl 4 Mg Tablet) 4 mg PO BID [facility] Last Admin: 01/09/25 10:59 Dose: Not Given Tiotropium Marvin (Tiotropium 2.5 Mcg Inhaler) 2 puff INHALATION RT-DAILY [facility] Last Admin: 01/09/25 08:27 Dose: Not Given Vitamin E (Vitamin E (Dl,Tocopheryl Acet) 400 Unit (180 Mg) Cap) 400 unit PO DAILY [facility] Last Admin: 01/09/25 10:59 Dose: Not Given Social history: Smoked less than a pack half a pack a day for 20 years stopped about 40 years ago. 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 . Physical examination: VITAL SIGNS: 98, 105, 18, 08/31/1995, 93% room air GENERAL: BMI 28.2, sitting up, resting EYES: Pupils equal. Conjunctiva hugh l. HEENT: External appearance of nose and ears normal, oral cavity grossly normal. NECK: JVD not raised; masses not palpable. HEART: First and second heart sounds are normal; no edema. LUNGS: Respiratory rate increased, no crackles ABDOMEN: Soft, nontender, liver spleen not palpable, no masses palpable. PSYCH: AO x 3, mood affect normal MUSCULOSKELETAL:No Clubbing/cyanosis;muscles-grossly intact. OA. Limited range of motion left shoulder. Left arm in a sling INVESTIGATIONS, reviewed in the clinical context: January 09: White count 6.3 hemoglobin 10.7. Procalcitonin 0.36 Free kappa light chain 4.07. Free lambda light chain 4.66. HIV negative IgG 1184. IgA 340. IgM 126 January 07: White count 9.7 hemoglobin 11.4 platelets 272 sodium 136 potassium 4.4 creatinine 0.81 troponin I less than 0.012 proBNP 2190 EKG tracing personally reviewed by me-normal sinus rhythm Chest x-ray film personally reviewed by me-some scattered infiltrates. Questionable venous prominence Recent T-cell process cells 108 total T cells 421 absolute CD4 helper cell 301 2D echo: EF 55 to 60%. Assessment plan: - Acute shortness breath with cough. Appears again to be combination of possibl e pneumonia which could be aspiration and/or fluid overload. Patient is on oral Ceftin. Also oral Lasix. Recent modified barium swallow was unremarkable. 2D echo showed preserved LV function. -Recent multilobar pneumonia suspect gram-negative organism, recurrent episode pneumonia: Patient doing much better when he left 2 days ago. Now with worsening respiratory symptoms IV Zosyn started on January 07 Bronchoscopy with lavage on January 09: Charline of thick yellow secretions on the right lung. - Low absolute CD4 helper, low total T cells, low T suppressor cells.: Suggest immunodeficiency Immunology panel to include IgG, IgA, IgM: All within normal limits HIV: Negative Hematology following - Zenker's diverticulum. This did fill up with food on barium swallow Patient to follow-up with ENT outpatient, Dr. Carlos Alberto Dwyer -History of dysphagia. Patient is at multiple esophageal dilatation in the past. Dr. Spring did EGD November 2024. No stricture identified Consult Dr. Edson Moe -Given recurrent pneumonia, check immune deficiency panel -Restless leg syndrome Requip 4 mg twice daily -Chronic low back pain from prior injury Neurontin 400 mg 3 times daily as needed. Mobic. [place] 10. - Left shoulder dysfunction. Being followed by orthopedics outpatient Left arm in a sling -COPD in a previous smoker DuoNeb 3 times daily -GERD Lansoprazole 30 mg daily -Essential hypertension, Zestril Lopressor -Hyperlipidemia Zetia 10 mg a day -Full code IV Zosyn. Consult Dr. Edson Moe. Discussed with patient and . Await cultures. Past Medical History Past Medical History: Heart Failure, GERD/Reflux, Hyperlipidemia, Hypertension, Musculoskeletal Disorder, Osteoarthritis (OA) Additional Past Medical History / Comment(s): esophageal constriction in the past, aortic valve stenosis, RLS, past hx. of compression fx. in back after a fall, chronic back pain, dry cough - has seen Dr. 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 ago, smoked for 20 yrs. <1/2ppd Past Drug Use History: None Reported
--- NOTE | 2025-01-09 19:35 | PCN ---
PROCEDURE NOTE PROCEDURE: Bronchoscopy and bronchoalveolar lavage with random bronchial washing. PREOPERATIVE DIAGNOSIS: Bilateral pneumonia. POSTOPERATIVE DIAGNOSIS: Bilateral pneumonia. ANESTHESIA USED: IV conscious sedation. DESCRIPTION OF PROCEDURE: The patient was brought into the bronchoscopy suite, prepared according to the bronchoscopy protocol. O2 was applied via Ventimask, the patient was monitored by pulse oximetry, cardiac rhythm was continuously monitored, blood pressure was intermittently monitored. After adequate IV conscious sedation, the bronchoscope was inserted through the bite block down to the area of the vocal cords, which were patent. Lidocaine applied over the vocal cords and the bronchoscope was advanced further down to the trachea. Examination was done thoroughly, and there was evidence of purulent secretions involving the distal trachea, also involving the right middle lobe, right upper lobe and right lower lobe. Left side was noted to be relatively clear, though no significant secretions noted on that left side. Bronchial washings and bronchoalveolar lavage was done of the right upper lobe, right middle lobe and right lower until all purulent secretions were suctioned. The procedure was well tolerated, no complications, and there was no evidence of any endobronchial tumors. MMODL / IJN: [id number] /
[2025-01-10 02:29] LABS: Appearance,BF Clumped (Clear); RBC, Body Fluid 17000 /UL (0-2000)
[2025-01-10 04:20] LABS: Methylmalonic Acid 0.15 umol/L (<0.40)
[2025-01-10 09:29] LABS: Nucleated Cells, Body Fluid 12650 /UL
--- NOTE | 2025-01-10 13:40 | P.CONS ---
History of Present Illness - Reason for Consult Consult date: 01/10/25 Dysphagia Requesting physician: Charles Donnelly - Chief Complaint Pneumonia, shortness of breath - History of Present Illness This a pleasant 79-year-old male admitted to the hospital with shortness of breath and recurrent pneumonia. Past medical history includes GERD, hyp ertension, hyperlipidemia, osteoarthritis, Zenker's diverticulum, aortic valve stenosis, restless leg syndrome and chronic back pain. Patient presented to the hospital 3 days ago with complaints of shortness of breath and productive cough. Patient was just recently discharged on 01/05/2025 and has been and being multiple admissions for recurrent pneumonia. Yesterday he underwent bronchoscopy and lavage. Apparently pulmonology thinks possible etiology of pneumonia secondary to aspiration as patient has had a history in the past some dysphagia and has had workup for Zenker's diverticulum. Gastroenterology was asked to see patient should not regarding dysphagia and possible aspiration. He has been seen by Dr. Moe in the past and was referred to Dr. Corbin at [facility] for Zenker's diverticulum. Reports stated that Zenker's diverticulum and esophagus was patent, there had been a thickened area in the esophagus that was ultrasound and no concerns for mass. Patient underwent upper endoscopy with Dr. Viral Alba on 11/29/2024 regarding possible aspiration and evaluation for stricture and he reported no strictures, mild esophagitis. Patient also underwent modified barium swallow on 12/17/2024 for evaluation of aspiration with normal oropharyngeal, no aspiration noted, reported Zenker's noted on modified barium study. Patient states that he does have some difficulty with swallowing at times that food will feel that it does not go down all the way and he may cough or bring it back up. He denies any pain with swallowing. States he does better if he eat soft foods and chops his food up well. Speech therapy recommended sitting up for 45 minutes before and after eating. Review of Systems REVIEW OF SYSTEMS: CARDIOPULMONARY: No chest pain. Recurrent shortness of breath and productive cough, recurrent pneumonia. Gastrointestinal: No abdominal pain. No nausea or vomiting. No hematemesis, coffee-ground emesis. No rectal bleeding, or melena. GENITOURINARY: No dysuria or hematuria. MUSCULOSKELETAL: Reports normal range of motion. SKIN: No rashes. No jaundice. ENDOCRINE: No chills, fevers. No excessive weight gain or loss. No polydipsia or polyuria. PSYCHIATRIC: Unremarkable. NEUROLOGY: No change in mental status. Denies dizziness, headache. ENT: Vision unremarkable. CONSTITUTIONAL: No recent weight loss. No fever, chills, night sweats. Past Medical History Past Medical History: Heart Failure, GERD/Reflux, Hyperlipidemia, Hypertension, Musculoskeletal Disorder, Osteoarthritis (OA) Additional Past Medical History / Comment(s): esophageal constriction in the past, aortic valve stenosis, RLS, past hx. of compression fx. in back after a fall, chronic back pain, dry cough - has seen Dr. 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, Left Shoulder reverse replacement Past Anesthesia/Blood Transfusion Reactions: No Reported Reaction Past Psychological History: No Psychological Hx Reported Smoking Status: Former smoker - Past Family History Mother Family Medical History: No Reported History, Hypertension Father Family Medical History: No Reported History, Hypertension Medications and Allergies Home Medications Medication Instructions Recorded Confirmed Type Ezetimibe [Zetia] 10 mg PO DAILY 11/02/21 01/07/25 History Gabapentin [Neurontin] 400 mg PO QID 11/02/21 01/07/25 History HYDROcodone/APAP 10-325MG [[place] 1 tab PO Q6H PRN 11/02/21 01/07/25 History 10-325] Lansoprazole 30 mg PO DAILY 11/02/21 01/07/25 History Meloxicam [Mobic] 15 mg PO DAILY 11/02/21 01/07/25 History Metoprolol Tartrate [Lopressor] 25 mg PO BID 11/02/21 01/07/25 History lisinopriL [Zestril] 20 mg PO DAILY 11/02/21 01/07/25 History modafiniL [Provigil] 200 mg PO DAILY 11/02/21 01/07/25 History rOPINIRole HCL [Requip] 4 mg PO BID 11/02/21 01/07/25 History Rosuvastatin [Crestor] 10 mg PO DAILY 10/17/23 01/07/25 History Pramipexole [Mirapex] 0.5 mg PO HS 11/26/24 01/07/25 History Omeprazole 40 mg PO DAILY #30 cap 11/30/24 01/07/25 Rx Albuterol Sulfate [Albuterol 1 puff INHALATION RT-Q4H PRN 12/15/24 01/07/25 History Sulfate Hfa] Aspirin 81 mg PO BID 01/01/25 01/07/25 History Fluticasone/Umeclidin/Vilanter 1 puff INHALATION RT-DAILY 01/02/25 01/07/25 History [Trelegy Ellipta 100-62.5-25] Furosemide [Lasix] 20 mg PO DAILY #30 tab 01/05/25 01/07/25 Rx cefuroxime axetiL [Ceftin] 500 mg PO BID #6 tab 01/05/25 01/07/25 Rx Magnesium (Unknown Otc) 1 dose PO DAILY 01/07/25 01/07/25 History Vitamin C (Unknown Otc) 1 dose PO DAILY 01/07/25 01/07/25 History Vitamin D3 (Unknown Otc) 1 dose PO DAILY 01/07/25 01/07/25 History Vitamin E (Unknown Otc) 1 dose PO DAILY 01/07/25 01/07/25 History Allergies Allergy/AdvReac Type Severity Reaction Status Date / Time No Known Allergies Allergy Verified 01/07/25 06:17 Physical Exam Vitals: Vital Signs Temp Pulse Pulse Resp BP Pulse Ox 01/10/25 09:12 70 01/10/25 09:02 68 01/10/25 08:00 98.5 F 65 16 144/75 90 L 01/10/25 01:05 97.5 F L 63 17 130/74 93 L 01/09/25 19:12 98.4 F 62 17 140/78 94 L 01/09/25 13:57 98 F 105 H 18 131/86 93 L Intake and Output 01/09/25 01/10/25 01/10/25 22:59 06:59 14:59 Other: Voiding Method Toilet Urinal # Voids 3 General appearance: The patient is alert, oriented, appears in no acute distress. HET: Head is normocephalic and atraumatic. Conjunctiva pink. Sclera anicteric. Neck: Supple without lymphadenopathy. Trachea midline. Heart: Regular. Lungs: Equal expansion, normal respiratory effort. Abdomen: Soft, nontender, nondistended. Skin: No rashes. No jaundice. Extremities: Normal skin color and turgor. No pedal edema. Neurological: No focal deficits. Alert and oriented x3. Results CBC & Chem 7: 01/09/25 04:05 01/07/25 02:55 Labs: Abnormal Lab Results - Last 24 Hours (Table) 01/08/25 01/09/25 Range/Units 09:46 12:30 Albumin (PEP) 3.30 L (3.80-4.90) g/dL Cnxfw-[id number]-Pjdanidxa 0.50 H (0.10-0.40) g/dL Qbosa-9-Xnyykaigw 1.15 H (0.60-1.00) g/dL Fluid Appearance Clumped A (Clear) Fluid RBC 32268 H (0-2000) /uL Free [place] LC, Quant 4.07 H (0.33-1.94) mg/dL Free Lambda LC, Quant 4.66 H (0.57-2.63) mg/dL Microbiology - Last 24 Hours (Table) 01/09/25 12:30 Gram Stain - Preliminary Bronchoalviolar Lavage - Right 01/07/25 02:55 Blood Culture - Preliminary Blood 01/08/25 12:16 Gram Stain - Preliminary Sputum Sputum Culture - Preliminary Assessment and Plan (1) Zenkers diverticulum Narrative/Plan: 79-year-old admitted for multiple episodes of pneumonia, pulmonology's concern for aspiration pneumonia however patient has had recent modified barium swallow with no evidence of aspiration but noted Zenker's diverticulum. Patient also had recent upper endoscopy without any esophageal strictures reported only findings of mild esophagitis with biopsies for coming back as chronic and acute esophagitis. Workup in the past for dysphagia and Zenker's diverticulum which patient was referred to [facility] for advanced GI and management of Zenker's which had further evaluation and determined that there was no stricture and there was complete patency without no recommendations for any surgical intervention. Patient may have some dysmotility issues such as presbyesophagus however there is no evidence of aspiration on recent modified barium study and no evidence of a stricture on recent upper endoscopy. No plans on repeating upper endoscopy. Consider other possible etiologies of recurrent pneumonia. Recommend small soft meals, well chopped and chewed, avoid dry foods, sit upright for 1 to 2 hours post meals. Current Visit: Yes Status: Acute Code(s): K22.5 - DIVERTICULUM OF ESOPHAGUS, ACQUIRED SNOMED Code(s): 232107717 (2) Pneumonia Current Visit: Yes Status: Acute Code(s): J18.9 - PNEUMONIA, UNSPECIFIED ORGANISM SNOMED Code(s): 515946588 (3) GERD (gastroesophageal reflux disease) Current Visit: No Status: Acute Code(s): K21.9 - GASTRO-ESOPHAGEAL REFLUX DISEASE WITHOUT ESOPHAGITIS SNOMED Code(s): 381995708 Plan: 1. Continue symptomatic and supportive care 2. Recommend chopped diet which patient states he can do himself, small pieces of solids, soft foods, drink fluids after eating and sit upright for 1 to 2 hours 3. Continue Protonix 40 mg daily for GI prophylaxis 4. Recent modified barium swallow and upper endoscopy reviewed with no evidence of aspiration modified barium swallow and no evidence of esophageal strictures on upper endoscopy 5. No plans on endoscopic evaluation. 6. Continue with further recommendations from pulmonology and medical team Thank you for this consultation, we will continue to follow. Dr. Edson Moe I agree with the dictator's note, documented as a scribe by Angelita Pena.
--- NOTE | 2025-01-10 14:00 | P.PN ---
Subjective Progress Note Date: 01/10/25 This is a pleasant 79-year-old male with past medical history significant for dysphagia, esophageal strictures with previous balloon dilation, hiatal hernia, GERD, recurrent pneumonias, asbestosis, hypertension, hyperlipidemia, aortic valve stenosis status post TAVR, and recent left shoulder replacement. The patient has been treated on several occasions for recurrent pneumonias since June,. Chest CT from 07/15/2024 demonstrated patchy infiltrates throughout the right lung. Pleural-based calcifications along the right diaphragm. Patient does have ongoing issues with dysphagia, Schatzki ring, and previous balloon dilation. Most recent EGD done 11/29/2024 remarkable for mild acute on chronic esophagitis. No strictures, dysplasia. More recently, patient had a hospitalization November 2024 for recurrent right-sided pneumonia. Sputum was positive during a previous hospitalization for Serratia marcescens and Gretchen. He was admitted again on January 01 through January 05, 2025 for similar symptoms. Initial procalcitonin was 14.2 and improved to 1.2. His discharge chest x-ray showed mild diffuse pulmonary edema that showed improvement and patchy infiltrates suspected related to pulmonary edema. He was discharged home on Ceftin and diuretics. He returned again to the emergency room early this morning January 07, 2025 with recurrent shortness of breath. Today's chest x-ray shows cardiomegaly with mild pulmonary vascular congestion. Question of possible aspiration. White count 9.7. Hemoglobin 11.4. Platelets 272. Sodium 136. Potassium 4.4. Bicarb 29. BUN 31. Creatinine 0.81. Glucose 83. He is currently awake and alert resting flat in bed. He is maintaining O2 saturation in the mid 90s on 3 L/min per nasal cannula. He is afebrile. Hemodynamically stable. He has a dry n onproductive cough. He has been initiated on Symbicort, albuterol, Spiriva. Continued on oral diuretics. The patient is seen today January 08, 2025 in follow-up on the regular medical floor. He is currently sitting up in a chair at the bedside. Awake and alert in no acute distress. Continues with a loose nonproductive cough. Maintaining good O2 saturation in the high 90s on 3 L/min per nasal cannula. Has been afebrile. Hemodynamically stable. Follow-up chest x-ray reveals mildly prominent pulmonary vasculature. Few scattered infiltrates bilaterally. No new labs today. He remains on albuterol, Symbicort, Spiriva. Antibiotics in the form of Zosyn. Remains on oral diuretics. The patient is seen today January 09, 2025 in follow-up on the regular medical floor. He is awake and alert in no acute distress. Maintaining O2 saturations in the 90s on room air oxygen. Has been afebrile. Hemodynamically stable. Blood cultures showing no growth. Sputum culture pending. White count 6.3. Hemoglobin 10.7. Platelets 243. Procalcitonin negative at 0.36. HIV screening negative. He remains on albuterol, Symbicort, Spiriva. Antibiotics in the form of Zosyn. Remains on oral diuretics. Plan is for bronchoscopy with BAL today. The patient is seen today January 10, 2025 in follow-up on the regular medical floor. He is currently sitting up in a chair. Awake and alert in no acute distress. Maintaining good O2 saturations in the 90s on room air oxygen. He did undergo bronchoscopy with BAL yesterday. Cultures and cytology are pending. He remains on Zosyn. He is continued on albuterol, Symbicort, Spiriva. Sputum culture revealed no growth. Blood culture revealed no growth. No new labs today. Objective - Vital Signs Vital signs: Vital Signs Temp 98.3 F 01/10/25 13:06 Pulse 66 01/10/25 13:06 Resp 16 01/10/25 13:06 BP 128/66 01/10/25 13:06 Pulse Ox 90 L 01/10/25 13:06 FiO2 Intake & Output 01/09/25 01/10/25 01/10/25 18:59 06:59 18:59 Intake Total 200 Balance 200 Intake: IV 200 Other: Voiding Method Toilet Toilet Urinal Urinal # Voids 3 - Exam GENERAL EXAM: Alert, 81-year-old male, up in a chair, on room air oxygen, comfortable in no apparent distress. HEAD: Normocephalic. EYES: Normal reaction of pupils, equal size. NOSE: Clear with pink turbinates. THROAT: No erythema or exudates. NECK: No masses, no JVD. CHEST: No chest wall deformity. LUNGS: Equal air entry with few scattered rhonchi. CVS: S1 and S2 normal with no audible murmur, regular rhythm. ABDOMEN: No hepatosplenomegaly, normal bowel sounds, no guarding or rigidity. SPINE: No scoliosis or deformity SKIN: No rashes CENTRAL NERVOUS SYSTEM: No focal deficits, tone is normal in all 4 extremities. EXTREMITIES: Left upper extremity sling in place. There is no peripheral edema. No clubbing, no cyanosis. Peripheral pulses are intact. - Labs CBC & Chem 7: 01/09/25 04:05 01/07/25 02:55 Labs: Abnormal Lab Results - Last 24 Hours (Table) 01/08/25 01/09/25 Range/Units 09:46 12:30 Albumin (PEP) 3.30 L (3.80-4.90) g/dL Rqite-2-Mpusavadq 0.50 H (0.10-0.40) g/dL Covij-7-Dvwvxntcf 1.15 H (0.60-1.00) g/dL Fluid Appearance Clumped A (Clear) Fluid RBC 41966 H (0-2000) /uL Free [place] LC, Quant 4.07 H (0.33-1.94) mg/dL Free Lambda LC, Quant 4.66 H (0.57-2.63) mg/dL Microbiology - Last 24 Hours (Table) 01/07/25 02:55 Blood Culture - Preliminary Blood 01/09/25 12:30 Gram Stain - Preliminary Bronchoalviolar Lavage - Right 01/08/25 12:16 Gram Stain - Preliminary Sputum Sputum Culture - Preliminary Assessment and Plan Assessment: Acute hypoxic respiratory failure secondary to suspected fluid volume overload versus aspiration pneumonia. Bronchoscopy with BAL performed January 09, 2025. Cultures and cytology are pending History of recurrent right-sided pneumonia, sputum culture previously positive for Gretchen and Serratia marcescens on 11/28/2024, patient has had multiple hospitalizations, most recently discharged again on January 05, 2025 on cefdinir Suspect acute CHF exacerbation, with unknown ejection fraction Recurrent dysphagia with a history of esophageal strictures and Schatzki ring, most recent undergoing balloon dilation May,. Repeat EGD done On 11/29/2024 remarkable findings for mild esophagitis. No noted esophageal strictures, hernias. 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 History of hiatal hernia History of gastroesophageal reflux disease Hypertension History of hyperlipidemia History of aortic valve stenosis status post transcatheter aortic valve replacement History of left shoulder replacement Former tobacco smoker Plan: The patient was seen and evaluated Labs and medications reviewed Bronchoscopy wash cultures pending Still concerns for aspiration Continue Zosyn per ID service Continue albuterol, Symbicort, Spiriva Currently stable on room air oxygen Increases activity as tolerated We will continue to follow I have personally seen and examined the patient, performed the documentation and the assessment and plan as written. Number of minutes spent on the visit: 10 Dictation was produced using Payment plugin dictation software. Please excuse any grammatical, word or spelling errors.
--- NOTE | 2025-01-10 16:50 | P.PN ---
Subjective Progress Note Date: 01/10/25 Principal diagnosis: Reason for follow-up pneumonia with question of aspiration Patient is a 79-year-old male with a past medical history significant for Heart Failure, GERD/Reflux, Hyperlipidemia, Hypertension, Musculoskeletal Disorder, Osteoarthritis (OA) with recent recurrent admission to hospital for pneumonia concerning for possible aspiration. On today's evaluation that is 01/10/2025,the patient remains to be afebrile, patient is on room air not requiring supplemental oxygen and breathing more comfortably denies any chest pain or worsening cough no abdominal pain or diarrhea. The patient white count 6.36 BAL cultures currently pending Objective - Vital Signs Vital signs: Vital Signs Temp 98.3 F 01/10/25 13:06 Pulse 64 01/10/25 16:24 Resp 16 01/10/25 13:06 BP 128/66 01/10/25 13:06 Pulse Ox 90 L 01/10/25 13:06 FiO2 Intake & Output 01/09/25 01/10/25 01/10/25 18:59 06:59 18:59 Intake Total 200 Balance 200 Intake: IV 200 Other: Voiding Method Toilet Toilet Urinal Urinal # Voids 3 - Exam GENERAL DESCRIPTION: An elderly male lying in bed in no distress RESPIRATORY SYSTEM: Unlabored breathing , decreased breath sounds at bases HEART: S1 S2 regular rate and rhythm , ABDOMEN: Soft , no tenderness EXTREMITIES: No edema feet - Labs CBC & Chem 7: 01/09/25 04:05 01/07/25 02:55 Labs: Abnormal Lab Results - Last 24 Hours (Table) 01/08/25 01/09/25 Range/Units 09:46 12:30 Albumin (PEP) 3.30 L (3.80-4.90) g/dL Vewfm-6-Swuwazfnb 0.50 H (0.10-0.40) g/dL Djqea-5-Igeehhpvk 1.15 H (0.60-1.00) g/dL Fluid Appearance Clumped A (Clear) Fluid RBC 09944 H (0-2000) /uL Microbiology - Last 24 Hours (Table) 01/08/25 12:16 Gram Stain - Final Sputum Sputum Culture - Final 01/07/25 02:55 Blood Culture - Preliminary Blood 01/09/25 12:30 Gram Stain - Preliminary Bronchoalviolar Lavage - Right Assessment and Plan (1) Pneumonia Current Visit: Yes Status: Acute Code(s): J18.9 - PNEUMONIA, UNSPECIFIED ORGANISM SNOMED Code(s): 980050710 Plan: 1patient presented to hospital with increasing shortness of breath he did have a cough bringing some yellow sputum did have a low-grade fever concerning for possible recurrent aspiration pneumonitis as the patient did have history of dysphagia, Schatzki ring, and previous balloon dilation. 2-sputum culture has been negative patient is status post bronchoscopy and lavage those cultures currently pending 3patient will be treated with Zosyn while waiting for BAL culture to be finalized Dictation was produced using [employer] dictation software. please excuse any grammatical, word or spelling errors. Time with Patient: Less than 30
--- NOTE | 2025-01-10 17:37 | P.PN ---
Progress Note - Text Progress Note Date: 01/10/25 Chief Complaint: Cough Very pleasant 79-year-old male , follows with Dr. Stewart Ramos. 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 Medical conditions include GERD, hypertension, hyperlipidemia, osteoarthritis, esophageal stricture constriction in the past, aortic valve stenosis, restless leg syndrome. Chronic back pain from a fall in his younger days. Ex-smoker. EGD with Dr. Spring on November 29. No stricture found Patient recently had about 4 bouts of pneumonia. There has been a question about aspiration also. 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 There was noted to fill completely with hard solid textures. Patient was recommended regular texture diet with thin liquids small bites and sips liquid alternation and upright positioning for 30 to 45 minutes after intake. Recent EGD by general surgery Dr. Spring was unremarkable Patient recently was admitted on January 01 and discharged on January 05, with pneumonia. Patient has a elevated procalcitonin of 14.2 did come down to 1.2 prior to discharge. Patient doing rather well upon discharge. Lungs were clear. Pulse ox on room air was 94% Patient yet again presents with feeling tired. Congested cough. Some sputum production. Some shortness of breath. It was discussed with Dr. Campos prior to discharge the patient may need a bronchoscopy if the symptoms recur. Patient also discharged on dose of Lasix. January 08: Some congested cough. Some sputum. On IV Zosyn. Pulmonary is planning for bronchoscopy tomorrow. I spoke to Genna the speech therapist. She did discuss about the modified barium swallow on recent admission. No need for further testing. Zenker's diverticulum will be seen outpatient. Remains on p.o. Lasix. Will fluid restriction. Procalcitonin 0.58 January 09: Patient underwent bronchoscopy by Dr. Monson. I spoke to Dr. Monson a lot of yellow secretions on the right lung. He is concerned about aspiration. Patient wants to get opinion from Dr. Edson Moe as patient's had dysphagia before. She will be consulted. Antibiotics to continue. Cultures pending. IV Zosyn . January 10: Up in a chair. Slight cough. Remains on IV Zosyn. Sputum cultures pending. I spoke to NASH Goldstein from GI. She discussed the case with Dr. Edson Moe. No further intervention for now. Patient had followed up at [facility] for Zenker's diverticulum. And it was recommended not for any surgical intervention.. Active Medications Acetaminophen (Acetaminophen Tab 325 Mg Tab) 650 mg PO Q6HR PRN PRN Reason: Mild Pain or Fever > 100.5 Hydrocodone Bitart/Acetaminophen (Hydrocodone/Apap 10-325mg 1 Each Tab) 1 each PO Q6H PRN PRN Reason: Pain Last Admin: 01/10/25 14:24 Dose: 1 each Albuterol Sulfate (Albuterol Nebulized 2.5 Mg/3 Ml) 2.5 mg INHALATION RT-Q4H PRN PRN Reason: Shortness Of Breath Last Admin: 01/10/25 16:15 Dose: 2.5 mg Ascorbic Acid (Ascorbic Acid 500 Mg Tab) 500 mg PO DAILY [facility] Last Admin: 01/10/25 08:42 Dose: 500 mg Aspirin (Aspirin 81 Mg) 81 mg PO BID [facility] Last Admin: 01/10/25 08:43 Dose: 81 mg Atorvastatin Calcium (Atorvastatin 20 Mg Tab) 20 mg PO DAILY [facility] Last Admin: 01/10/25 08:42 Dose: 20 mg Budesonide/Formoterol Fumarate (Symbicort 160-4.5 Mcg Inhaler) 2 puff INHALATION RT-BID [facility] Last Admin: 01/10/25 09:01 Dose: Not Given Cholecalciferol (Cholecalciferol 25 Mcg (1000 Iu) Tablet) 25 mcg PO DAILY [facility] Last Admin: 01/10/25 08:42 Dose: 25 mcg Diclofenac Sodium (Diclofenac Sodium Gel 100 Gm Tube) 2 gm TOPICAL TID [facility]; Protocol Last Admin: 01/10/25 17:11 Dose: 2 gm Ezetimibe (Ezetimibe 10 Mg Tab) 10 mg PO DAILY [facility] Last Admin: 01/10/25 08:42 Dose: 10 mg Furosemide (Furosemide 20 Mg Tab) 20 mg PO BID@0900,1600 [facility] Last Admin: 01/10/25 17:10 Dose: 20 mg Gabapentin (Gabapentin 400 Mg Cap) 400 mg PO QID [facility] Last Admin: 01/10/25 17:10 Dose: 400 mg Sodium Chloride (Saline 0.9%) 1,000 mls @ 20 mls/hr IV .Q24H [facility] Last Admin: 01/10/25 01:39 Dose: Not Given Piperacillin Sod/Tazobactam (Sod 3.375 gm/ Sodium Chloride) 100 mls @ 25 mls/hr IVPB Q8HR [facility]; Protocol Last Admin: 01/10/25 17:10 Dose: 25 mls/hr Lisinopril (Lisinopril 20 Mg Tab) 20 mg PO DAILY [facility] Last Admin: 01/10/25 08:42 Dose: 20 mg Magnesium Oxide (Magnesium Oxide 400 Mg Tab) 400 mg PO DAILY [facility] Last Admin: 01/10/25 08:42 Dose: 400 mg Meloxicam (Meloxicam 7.5 Mg Tab) 15 mg PO DAILY [facility] Last Admin: 01/10/25 08:42 Dose: 15 mg Metoprolol Tartrate (Metoprolol Tartrate 25 Mg Tab) 25 mg PO BID [facility] Last Admin: 01/10/25 08:43 Dose: 25 mg Modafinil (Modafinil 200 Mg Tab) 200 mg PO DAILY [facility] Last Admin: 01/10/25 08:42 Dose: 200 mg Naloxone HCl (Naloxone 0.4 Mg/Ml 1 Ml Vial) 0.2 mg IV Q2M PRN PRN Reason: Opioid Reversal Pantoprazole Sodium (Pantoprazole 40 Mg Tablet) 40 mg PO DAILY [facility] Last Admin: 01/10/25 08:42 Dose: 40 mg Pramipexole Dihydrochloride (Pramipexole 0.5 Mg Tab) 0.5 mg PO HS [facility] Last Admin: 01/09/25 20:06 Dose: 0.5 mg Ropinirole HCl (Ropinirole Hcl 4 Mg Tablet) 4 mg PO BID [facility] Last Admin: 01/10/25 08:43 Dose: 4 mg Tiotropium [place] (Tiotropium 2.5 Mcg Inhaler) 2 puff INHALATION RT-DAILY [facility] Last Admin: 01/10/25 09:02 Dose: Not Given Vitamin E (Vitamin E (Dl,Tocopheryl Acet) 400 Unit (180 Mg) Cap) 400 unit PO DAILY [facility] Last Admin: 01/10/25 08:43 Dose: 400 unit Social history: Smoked less than a pack half a pack a day for 20 years stopped about 40 years ago. 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 . Physical examination: VITAL SIGNS: 98.3, 66, 16, 128 x 76, 90% room GENERAL: BMI 28.2, sitting up, in a chair EYES: Pupils equal. Conjunctiva hugh l. HEENT: External appearance of nose and ears normal, oral cavity grossly normal. NECK: JVD not raised; masses not palpable. HEART: First and second heart sounds are normal; no edema. LUNGS: Respiratory rate normal, some right basilar crackles ABDOMEN: Soft, nontender, liver spleen not palpable, no masses palpable. PSYCH: AO x 3, mood affect normal MUSCULOSKELETAL:No Clubbing/cyanosis;muscles-grossly intact. OA. Limited range of motion left shoulder. Left arm in a sling INVESTIGATIONS, reviewed in the clinical context: January 09: White count 6.3 hemoglobin 10.7. Procalcitonin 0.36 Free kappa light chain 4.07. Free lambda light chain 4.66. HIV negative IgG 1184. IgA 340. IgM 126 January 07: White count 9.7 hemoglobin 11.4 platelets 272 sodium 136 potassium 4.4 creatinine 0.81 troponin I less than 0.012 proBNP 2190 EKG tracing personally reviewed by me-normal sinus rhythm Chest x-ray film personally reviewed by me-some scattered infiltrates. Questionable venous prominence Recent T-cell process cells 108 total T cells 421 absolute CD4 helper cell 301 2D echo: EF 55 to 60%. Assessment plan: - Acute shortness breath with cough. Pneumonia Patient is on oral Ceftin. Also oral Lasix. Recent modified barium swallow was unremarkable. 2D echo showed preserved LV function. -Recent multilobar pneumonia suspect gram-negative organism, recurrent episode pneumonia: Patient doing much better when he left 2 days ago. Now with worsening respiratory symptoms Patient seen by Dr. Edson Moe. Do not feel it is aspiration. That included GERD recent negative EGD. And a negative modified barium swallow IV Zosyn started on January 07 Bronchoscopy with lavage on January 09: Charline of thick yellow secretions on the right lung. - Low absolute CD4 helper, low total T cells, low T suppressor cells.: Suggest immunodeficiency Immunology panel to include IgG, IgA, IgM: All within normal limits HIV: Negative Hematology following - Zenker's diverticulum. This did fill up with food on barium swallow Per Dr. Edson Moe patient had follow-up at [facility] for the same. He did not need any surgical intervention. -History of dysphagia. Patient is at multiple esophageal dilatation in the past. Dr. Spring did EGD November 2024. No stricture identified Seen by Dr. Edson Moe. Not for any further intervention -Restless leg syndrome Requip 4 mg twice daily -Chronic low back pain from prior injury Neurontin 400 mg 3 times daily as needed. Mobic. [place] 10. - Left shoulder dysfunction. Being followed by orthopedics outpatient Left arm in a sling -COPD in a previous smoker DuoNeb 3 times daily -GERD Lansoprazole 30 mg daily -Essential hypertension, Zestril Lopressor -Hyperlipidemia Zetia 10 mg a day -Full code Discussed with patient . Also Pollo from GI. Not felt to be aspiration. Past Medical History Past Medical History: Heart Failure, GERD/Reflux, Hyperlipidemia, Hypertension, Musculoskeletal Disorder, Osteoarthritis (OA) Additional Past Medical History / Comment(s): esophageal constriction in the past, aortic valve stenosis, RLS, past hx. of compression fx. in back after a fall, chronic back pain, dry cough - has seen Dr. 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 ago, smoked for 20 yrs. <1/2ppd Past Drug Use History: None Reported
--- NOTE | 2025-01-10 18:22 | CDI ---
Documentation Clarification Form Date: 01/10/2025 05:29:50 PM From: Mitzi Jensen RN, CCDS Phone: [phone] Admit Date: 01/07/2025 05:00:00 AM Patient Name: Armando Sung Visit Number: [id number] Discharge Date: ATTENTION: The Clinical Documentation Specialists (CDI) and [facility] Coding Staff appreciate your assistance in clarifying documentation. Please respond to the clarification below the line at the bottom and electronically sign. The CDI & [facility] Coding staff will review the response and follow-up if needed. Please note: Queries are made part of the Legal Health Record. If you have any questions, please contact the author of this message via ITS. DoctorChetan Donnelly Your patient has the documented diagnosis of fluid overload in the H/P and subsequent progress notes. On 01/07/25 Pulmonary Consult and subsequent progress notes has suspect acute CHF exacerbation with unknown ejection fraction Additional information regarding the [type, acuity] of CHF is requested. History/Risk Factors: Heart Failure, Hypertension, Hyperlipidemia, Clinical Indicators: 79-year-old male present with shortness of Breath difficulty in breathing and productive cough. Endorses chills and peripheral edema. Extremities exam. (Bilateral LE edema, 1+) Respiratory exam Present: Wheezes, decreased breath sounds. Absent: normal lung sounds bilaterally, respiratory distress 01/07 VS/Pulse OX: 129/62 89 18 100.0 88% RA 01/07 BNP: 2190 Echocardiogram Results: (01/02/25) LVEF estimated at 55-60% with regional wall motion abnormality. Normal RV size and systolic function mild left atrial dilation, mild mitral regurgitation Bioprosthetic aortic valve with mean gradient of 18 mmHG, central regurgitation. Mild paravalvular leak. Mild tricuspid regurgitation 01/07 CXR: reveals cardiomegaly with mild vascular congestion 01/08 CXR: Congestive heart failure versus atypical pneumonia Treatment: Lasix 20 MG PO Daily 01/07> 20 MB PO BID 01/07-01/10 Lipitor 20MG PO Daily 01/07-01/10 Lopressor 25 MG PO BID 01/07-01/10 Zestril 20 MG PO Daily 01/07-01/10 In your professional opinion, can you please clarify the [acuity and type] of CHF if known? [ ] Acute Diastolic Heart Failure (preserved EF) [ + ] Chronic Diastolic Heart Failure (preserved EF) [ ] Acute on Chronic Diastolic Heart Failure (preserved EF [ ] Other, please specify [ ] Unable to determine (Template Last Revised: September 2020) MTDD
[2025-01-10 23:08] VITALS: RESP 18
[2025-01-10] MEDS: MAGNESIUM OXIDE 400 MG TAB PO SCH (23:14)
[2025-01-10 23:20] LABS: African American GFR (CKD) 80 (>60 ml/min/1.73 sqM); Anion Gap 8 mmol/L; Blood Urea Nitrogen 30 mg/dL (9-20); Calcium 8.7 mg/dL (8.4-10.2); Carbon Dioxide 29 mmol/L (22-30); Chloride 99 mmol/L (98-107); Glucose 120 mg/dL (74-99); Magnesium 2.2 mg/dL (1.6-2.3); Non-African American GFR(CKD) 69 (>60 ml/min/1.73 sqM); Potassium 4.2 mmol/L (3.5-5.1); Sodium 136 mmol/L (137-145)
[2025-01-10] MEDS: ACETAMINOPHEN TAB 325 MG TAB PO PRN (23:48)
[2025-01-11 08:37] VITALS: BP 154/76; TEMP 98.4
[2025-01-11 09:45] VITALS: PULSE 68
--- NOTE | 2025-01-11 11:34 | P.PN ---
Subjective Progress Note Date: 01/11/25 Principal diagnosis: Pneumonia, dysphagia This a pleasant 79-year-old male admitted to the hospital with shortness of breath and recurrent pneumonia. Past medical history includes GERD, hypertension, hyperlipidemia, osteoarthritis, Zenker's diverticulum, aortic valve stenosis, restless leg syndrome and chronic back pain. Patient presented to the hospital 3 days ago with complaints of shortness of breath and productive cough. Patient was just recently discharged on 01/05/2025 and has been and being multiple admissions for recurrent pneumonia. Yesterday he underwent bronch oscopy and lavage. Apparently pulmonology thinks possible etiology of pneumonia secondary to aspiration as patient has had a history in the past some dysphagia and has had workup for Zenker's diverticulum. Gastroenterology was asked to see patient should not regarding dysphagia and possible aspiration. He has been seen by Dr. Moe in the past and was referred to Dr. Corbin at [facility] for Zenker's diverticulum. Reports stated that Zenker's diverticulum and esophagus was patent, there had been a thickened area in the esophagus that was ultrasound and no concerns for mass. Patient underwent upper endoscopy with Dr. Spring on 11/29/2024 regarding possible aspiration and evaluation for stricture and he reported no strictures, mild esophagitis. Patient also underwent modified barium swallow on 12/17/2024 for evaluation of aspiration with normal oropharyngeal, no aspiration noted, reported Zenker's noted on modified barium study. Patient states that he does have some difficulty with swallowing at times that food will feel that it does not go down all the way and he may cough or bring it back up. He denies any pain with swallowing. States he does better if he eat soft foods and chops his food up well. Speech therapy recommended sitting up for 45 minutes before and after eating. 01/11/2025 Patient seen and examined today as a follow-up. States he is feeling better. He is afebrile. Currently does not have oxygen on. He is up eating his breakfast. Discussed findings of previous modified barium swallow with speech pathologist and there was no evidence of aspiration during the study. There was Zenker's diverticulum that was noted. Patient denies any nausea or vomiting. Objective - Vital Signs Vital signs: Vital Signs Temp 97.2 F L 01/11/25 02:08 Pulse 57 L 01/11/25 02:08 Resp 18 01/11/25 02:08 BP 119/74 01/11/25 02:08 Pulse Ox 94 L 01/11/25 02:08 FiO2 Intake & Output 01/10/25 01/11/25 01/11/25 18:59 06:59 18:59 Other: # Voids 2 3 - Exam General appearance: The patient is alert, oriented, appears in no acute distress. HET: Head is normocephalic and atraumatic. Conjunctiva pink. Sclera anicteric. Neck: Supple without lymphadenopathy. Abdomen: Soft, nontender, nondistended. Extremities: Normal skin color and turgor. No pedal edema Skin: No rashes, no jaundice Neurological: No focal deficits. Alert and oriented. - Labs CBC & Chem 7: 01/09/25 04:05 01/10/25 22:44 Labs: Abnormal Lab Results - Last 24 Hours (Table) 01/09/25 01/10/25 Range/Units 12:30 22:44 Sodium 136 L (137-145) mmol/L BUN 30 H (9-20) mg/dL Glucose 120 H (74-99) mg/dL Fluid RBC 56777 H (0-2000) /uL Microbiology - Last 24 Hours (Table) 01/09/25 12:30 Acid Fast Bacilli Smear - Preliminary Bronchoalviolar Lavage - Right 01/08/25 12:16 Gram Stain - Final Sputum Sputum Culture - Final 01/07/25 02:55 Blood Culture - Preliminary Blood 01/09/25 12:30 Gram Stain - Preliminary Bronchoalviolar Lavage - Right Assessment and Plan (1) Zenkers diverticulum Narrative/Plan: 79-year-old admitted for multiple episodes of pneumonia, pulmonology's concern for aspiration pneumonia however patient has had recent modified barium swallow with no evidence of aspiration but noted Zenker's diverticulum. Patient also had recent upper endoscopy without any esophageal strictures reported only findings of mild esophagitis with biopsies for coming back as chronic and acute esophagitis. Workup in the past for dysphagia and Zenker's diverticulum which patient was referred to [facility] for advanced GI and management of Zenker's which had further evaluation and determined that there was no stricture and there was complete patency without no recommendations for any surgical intervention. Patient may have some dysmotility issues such as presbyesophagus however there is no evidence of aspiration on recent modified barium study and no evidence of a stricture on recent upper endoscopy. No plans on repeating upper endoscopy. Consider other possible etiologies of recurrent pneumonia. Recommend small soft meals, well chopped and chewed, avoid dry foods, sit upright for 1 to 2 hours post meals. Current Visit: Yes Status: Acute Code(s): K22.5 - DIVERTICULUM OF ESOPHAGUS, ACQUIRED SNOMED Code(s): 225445565 (2) Pneumonia Current Visit: Yes Status: Acute Code(s): J18.9 - PNEUMONIA, UNSPECIFIED ORGANISM SNOMED Code(s): 433357608 (3) GERD (gastroesophageal reflux disease) Current Visit: No Status: Acute Code(s): K21.9 - GASTRO-ESOPHAGEAL REFLUX DISEASE WITHOUT ESOPHAGITIS SNOMED Code(s): 584358069 Plan: 1. Continue symptomatic and supportive care 2. Recommend chopped diet which patient states he can do himself, small pieces of solids, soft foods, drink fluids after eating and sit upright for 1 to 2 hours 3. Continue Protonix 40 mg daily for GI prophylaxis 4. Recent modified barium swallow and upper endoscopy reviewed with no evidence of aspiration modified barium swallow and no evidence of esophageal strictures on upper endoscopy 5. No plans on endoscopic evaluation. 6. Continue with further recommendations from pulmonology and medical team Thank you for this consultation, patient is cleared from gastroenterology for discharge. We will sign off at this time. Dr. Edson Moe I agree with the dictator's note, documented as a scribe by Angelita Pena.
--- NOTE | 2025-01-11 15:43 | P.PN ---
Subjective Progress Note Date: 01/11/25 This is a pleasant 79-year-old male with past medical history significant for dysphagia, esophageal strictures with previous balloon dilation, hiatal hernia, GERD, recurrent pneumonias, asbestosis, hypertension, hyperlipidemia, aortic valve stenosis status post TAVR, and recent left shoulder replacement. The patient has been treated on several occasions for recurrent pneumonias since June,. Chest CT from 07/15/2024 demonstrated patchy infiltrates throughout the right lung. Pleural-based calcifications along the right diaphragm. Patient does have ongoing issues with dysphagia, Schatzki ring, and previous balloon dilation. Most recent EGD done 11/29/2024 remarkable for mild acute on chronic esophagitis. No strictures, dysplasia. More recently, patient had a hospitalization November 2024 for recurrent right-sided pneumonia. Sputum was positive during a previous hospitalization for Serratia marcescens and Gretchen. He was admitted again on January 01 through January 05, 2025 for similar symptoms. Initial procalcitonin was 14.2 and improved to 1.2. His discharge chest x-ray showed mild diffuse pulmonary edema that showed improvement and patchy infiltrates suspected related to pulmonary edema. He was discharged home on Ceftin and diuretics. He returned again to the emergency room early this morning January 07, 2025 with recurrent shortness of breath. Today's chest x-ray shows cardiomegaly with mild pulmonary vascular congestion. Question of possible aspiration. White count 9.7. Hemoglobin 11.4. Platelets 272. Sodium 136. Potassium 4.4. Bicarb 29. BUN 31. Creatinine 0.81. Glucose 83. He is currently awake and alert resting flat in bed. He is maintaining O2 saturation in the mid 90s on 3 L/min per nasal cannula. He is afebrile. Hemodynamically stable. He has a dry n onproductive cough. He has been initiated on Symbicort, albuterol, Spiriva. Continued on oral diuretics. The patient is seen today January 08, 2025 in follow-up on the regular medical floor. He is currently sitting up in a chair at the bedside. Awake and alert in no acute distress. Continues with a loose nonproductive cough. Maintaining good O2 saturation in the high 90s on 3 L/min per nasal cannula. Has been afebrile. Hemodynamically stable. Follow-up chest x-ray reveals mildly prominent pulmonary vasculature. Few scattered infiltrates bilaterally. No new labs today. He remains on albuterol, Symbicort, Spiriva. Antibiotics in the form of Zosyn. Remains on oral diuretics. The patient is seen today January 09, 2025 in follow-up on the regular medical floor. He is awake and alert in no acute distress. Maintaining O2 saturations in the 90s on room air oxygen. Has been afebrile. Hemodynamically stable. Blood cultures showing no growth. Sputum culture pending. White count 6.3. Hemoglobin 10.7. Platelets 243. Procalcitonin negative at 0.36. HIV screening negative. He remains on albuterol, Symbicort, Spiriva. Antibiotics in the form of Zosyn. Remains on oral diuretics. Plan is for bronchoscopy with BAL today. The patient is seen today January 10, 2025 in follow-up on the regular medical floor. He is currently sitting up in a chair. Awake and alert in no acute distress. Maintaining good O2 saturations in the 90s on room air oxygen. He did undergo bronchoscopy with BAL yesterday. Cultures and cytology are pending. He remains on Zosyn. He is continued on albuterol, Symbicort, Spiriva. Sputum culture revealed no growth. Blood culture revealed no growth. No new labs today. The patient is seen today January 11, 2025 in follow-up on the regular medical floor. He is awake and alert in no acute distress. Sitting up in bed. Denies any worsening shortness of breath, cough or congestion. Maintaining good O2 saturations in the 90s on room air oxygen. Bronchial wash cultures revealed no growth. Sputum culture revealed no growth. Blood culture revealed no growth. No new labs today. He remains on albuterol, Symbicort and Spiriva. Antibiotics in the form of Zosyn. Objective - Vital Signs Vital signs: Vital Signs Temp 98.4 F 01/11/25 07:27 Pulse 68 01/11/25 09:45 Resp 18 01/11/25 07:27 BP 154/76 01/11/25 07:27 Pulse Ox 94 L 01/11/25 07:27 FiO2 Intake & Output 01/10/25 01/11/25 01/11/25 18:59 06:59 18:59 Intake Total 180 Balance 180 Intake: Oral 180 Other: # Voids 2 3 - Exam GENERAL EXAM: Alert, pleasant 81-year-old male, sitting up in bed, on room air oxygen, comfortable in no apparent distress. HEAD: Normocephalic. EYES: Normal reaction of pupils, equal size. NOSE: Clear with pink turbinates. THROAT: No erythema or exudates. NECK: No masses, no JVD. CHEST: No chest wall deformity. LUNGS: Equal air entry with few scattered rhonchi. CVS: S1 and S2 normal with no audible murmur, regular rhythm. ABDOMEN: No hepatosplenomegaly, normal bowel sounds, no guarding or rigidity. SPINE: No scoliosis or deformity SKIN: No rashes CENTRAL NERVOUS SYSTEM: No focal deficits, tone is normal in all 4 extremities. EXTREMITIES: Left upper extremity sling in place. There is no peripheral edema. No clubbing, no cyanosis. Peripheral pulses are intact. - Labs CBC & Chem 7: 01/09/25 04:05 01/10/25 22:44 Labs: Abnormal Lab Results - Last 24 Hours (Table) 01/10/25 Range/Units 22:44 Sodium 136 L (137-145) mmol/L BUN 30 H (9-20) mg/dL Glucose 120 H (74-99) mg/dL Microbiology - Last 24 Hours (Table) 01/09/25 12:30 Gram Stain - Preliminary Bronchoalviolar Lavage - Right Bronchial Washings Culture - Preliminary 01/09/25 12:30 Acid Fast Bacilli Smear - Preliminary Bronchoalviolar Lavage - Right 01/08/25 12:16 Gram Stain - Final Sputum Sputum Culture - Final 01/07/25 02:55 Blood Culture - Preliminary Blood Assessment and Plan Assessment: Acute hypoxic respiratory failure secondary to suspected aspiration pneumonia. Bronchoscopy with BAL performed January 09, 2025. Cultures revealed no growth and cytology was negative for malignancy History of recurrent right-sided pneumonia, sputum culture previously positive for Gretchen and Serratia marcescens on 11/28/2024, patient has had multiple hospitalizations, most recently discharged again on January 05, 2025 on cefdinir Suspect acute CHF exacerbation, with unknown ejection fraction Recurrent dysphagia with a history of esophageal strictures and Schatzki ring, most recent undergoing balloon dilation May,. Repeat EGD done On 11/29/2024 remarkable findings for mild esophagitis. No noted esophageal strictures, hernias. 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 History of hiatal hernia History of gastroesophageal reflux disease Hypertension History of hyperlipidemia History of aortic valve stenosis status post transcatheter aortic valve replacement History of left shoulder replacement Former tobacco smoker Plan: The patient was seen and evaluated Medications reviewed Bronchoscopy wash cultures revealed no growth Cytology revealed no malignancy Currently stable on room air oxygen Cleared for discharge Educated regarding aspiration precautions Continue his home pulmonary medications Follow-up in the office in 1 week I have personally seen and examined the patient, performed the documentation and the assessment and plan as written. Number of minutes spent on the visit: 10 Dictation was produced using [employer] dictation software. Please excuse any grammatical, word or spelling errors.
--- NOTE | 2025-01-11 19:24 | P.DS ---
Providers Date of admission: 01/07/25 05:00 Expected date of discharge: 01/11/25 Attending physician: Charles Donnelly Consults: 01/07/25 03:22 Consult Physician Routine Consulting Provider: Tiny Campos Consult Reason/Comments: pnuemonia Do you want consulting provider notified?: Yes, Notify in am Consult Physician Routine Consulting Provider: Jeanne Mix Consult Reason/Comments: pneumonia Do you want consulting provider notified?: Yes, Notify in am 01/07/25 13:54 Consult Physician Routine Consulting Provider: Mirna Padilla Consult Reason/Comments: Low T-cell Do you want consulting provider notified?: Yes 01/09/25 16:59 Consult Physician Routine Consulting Provider: Adela Moe Consult Reason/Comments: Dysphagia Do you want consulting provider notified?: Yes Primary care physician: [facility] Course: Chief Complaint: Cough Very pleasant 79-year-old male , follows with Dr. Stewart Ramos. Food And Beverage Associate Dr. Oliveira and circus roustabout Dr. Monson. Medical conditions include GERD, hypertension, hyperlipidemia, osteoarthritis, esophageal stricture constriction in the past, aortic valve stenosis, restless leg syndrome. Chronic back pain from a fall in his younger days. Ex-smoker. EGD with Dr. Spring on November 29. No stricture found Patient recently had about 4 bouts of pneumonia. There has been a question about aspiration also. 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 There was noted to fill completely with hard solid textures. Patient was recommended regular texture diet with thin liquids small bites and sips liquid alternation and upright positioning for 30 to 45 minutes after intake. Recent EGD by general surgery Dr. Spring was unremarkable Patient recently was admitted on January 01 and discharged on January 05, with pneumonia. Patient has a elevated procalcitonin of 14.2 did come down to 1.2 prior to discharge. Patient doing rather well upon discharge. Lungs were clear. Pulse ox on room air was 94% Patient yet again presents with feeling tired. Congested cough. Some sputum production. Some shortness of breath. It was discussed with Dr. Campos prior to discharge the patient may need a bronchoscopy if the symptoms recur. Patient also discharged on dose of Lasix. Ynes 10: Some congested cough. Some sputum. On IV Zosyn. Pulmonary is planning for bronchoscopy tomorrow. I spoke to Genna the speech therapist. She did discuss about the modified barium swallow on recent admission. No need for further testing. Zenker's diverticulum will be seen outpatient. Remains on p.o. Lasix. Will fluid restriction. Procalcitonin 0.58 January 09: Patient underwent bronchoscopy by Dr. Monson. I spoke to Dr. Monson a lot of yellow secretions on the right lung. He is concerned about aspiration. Patient wants to get opinion from Dr. Edson Moe as patient's had dysphagia before. She will be consulted. Antibiotics to continue. Cultures pending. IV Zosyn . January 10: Up in a chair. Slight cough. Remains on IV Zosyn. Sputum cultures pending. I spoke to NASH Goldstein from GI. She discussed the case with Dr. Edson Moe. No further intervention for now. Patient had followed up at [facility] for Zenker's diverticulum. And it was recommended not for any surgical intervention.. January 11: Patient was cleared by pulmonary Dr. Monson. Follow-up outpatient. Patient did not see ENT. Spoke to Dr. Mix from ID. Patient will complete 7 more days of Avelox. Discharged on bronchodilators. Questions answered.. Lavage cultures coming back negative till now Discussion and discharge planning more than 35 minutes Social history: Smoked less than a pack half a pack a day for 20 years stopped about 40 years ago. 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 . Physical examination: VITAL SIGNS: 98.4, 68, 18, 154/76, 94% 2 L GENERAL: Comfortable EYES: Pupils equal. Conjunctiva hugh l. HEENT: External appearance of nose and ears normal, oral cavity grossly normal. NECK: JVD not raised; masses not palpable. HEART: First and second heart sounds are normal; no edema. LUNGS: Respiratory rate normal, some right basilar crackles ABDOMEN: Soft, nontender, liver spleen not palpable, no masses palpable. PSYCH: AO x 3, mood affect normal MUSCULOSKELETAL:No Clubbing/cyanosis;muscles-grossly intact. OA. Limited range of motion left shoulder. Left arm in a sling INVESTIGATIONS, reviewed in the clinical context: January 09: White count 6.3 hemoglobin 10.7. Procalcitonin 0.36 Free kappa light chain 4.07. Free lambda light chain 4.66. HIV negative IgG 1184. IgA 340. IgM 126 January 07: White count 9.7 hemoglobin 11.4 platelets 272 sodium 136 potassium 4.4 creatinine 0.81 troponin I less than 0.012 proBNP 2190 EKG tracing personally reviewed by me-normal sinus rhythm Chest x-ray film personally reviewed by me-some scattered infiltrates. Questionable venous prominence Recent T-cell process cells 108 total T cells 421 absolute CD4 helper cell 301 2D echo: EF 55 to 60%. Assessment plan: - Acute shortness breath with cough. Pneumonia Patient is on oral Ceftin. Also oral Lasix. Recent modified barium swallow was unremarkable. 2D echo showed preserved LV function. -Recent multilobar pneumonia suspect gram-negative organism, recurrent episode pneumonia: Patient doing much better when he left 2 days ago. Now with worsening respiratory symptoms Patient seen by Dr. Edson Moe. Do not feel it is aspiration. That included GERD recent negative EGD. And a negative modified barium swallow IV Zosyn started on January 07 Bronchoscopy with lavage on January 09: Charline of thick yellow secretions on the right lung. Lavage cultures coming back negative till now Avelox for 7 days - Low absolute CD4 helper, low total T cells, low T suppressor cells.: Suggest immunodeficiency Immunology panel to include IgG, IgA, IgM: All within normal limits HIV: Negative Patient to follow-up outpatient with Dr. Padilla - Ketty's diverticulum. This did fill up with food on barium swallow Per Dr. Edson Moe patient had follow-up at [facility] for the same. He did not need any surgical intervention. -History of dysphagia. Patient is at multiple esophageal dilatation in the past. Dr. Spring did EGD November 2024. No stricture identified Seen by Dr. Edson Moe. Not for any further intervention -Restless leg syndrome Requip 4 mg twice daily -Chronic low back pain from prior injury Neurontin 400 mg 3 times daily as needed. Mobic. [place] 10. - Left shoulder dysfunction. Being followed by orthopedics outpatient Left arm in a sling -COPD in a previous smoker DuoNeb 3 times daily -GERD Lansoprazole 30 mg daily -Essential hypertension, Zestril Lopressor -Hyperlipidemia Zetia 10 mg a day -Full code Disposition: Home Past Medical History Past Medical History: Heart Failure, GERD/Reflux, Hyperlipidemia, Hypertension, Musculoskeletal Disorder, Osteoarthritis (OA) Additional Past Medical History / Comment(s): esophageal constriction in the past, aortic valve stenosis, RLS, past hx. of compression fx. in back after a fall, chronic back pain, dry cough - has seen Dr. 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 ago, smoked for 20 yrs. <1/2ppd Past Drug Use History: None Reported Plan - Discharge Summary Discharge Rx Participant: No New Discharge Prescriptions: New Diclofenac Sodium Gel [Voltaren 1% Gel] 2 gm TOPICAL TID #1 gm Tiotropium 2.5 Mcg/Puff [Spiriva Respimat 2.5 Mcg] 2 puff INHALATION RT-DAILY #1 each Moxifloxacin HCl [Avelox] 400 mg PO DAILY #7 tab Ipratropium-Albuterol Nebulize [Duoneb 0.5 mg-3 mg/3 ml Soln] 3 ml INHALATION TID #90 ml Continue rOPINIRole HCL [Requip] 4 mg PO BID modafiniL [Provigil] 200 mg PO DAILY lisinopriL [Zestril] 20 mg PO DAILY Metoprolol Tartrate [Lopressor] 25 mg PO BID Meloxicam [Mobic] 15 mg PO DAILY Lansoprazole 30 mg PO DAILY HYDROcodone/APAP 10-325MG [[place] 10-325] 1 tab PO Q6H PRN PRN Reason: Pain Gabapentin [Neurontin] 400 mg PO QID Rosuvastatin [Crestor] 10 mg PO DAILY Pramipexole [Mirapex] 0.5 mg PO HS Albuterol Sulfate [Albuterol Sulfate Hfa] 1 puff INHALATION RT-Q4H PRN PRN Reason: Shortness Of Breath Aspirin 81 mg PO BID Fluticasone/Umeclidin/Vilanter [Trelegy Ellipta 100-62.5-25] 1 puff INHALATION RT-DAILY Furosemide [Lasix] 20 mg PO DAILY #30 tab Ezetimibe [Zetia] 10 mg PO DAILY Magnesium (Unknown Otc) 1 dose PO DAILY Vitamin C (Unknown Otc) 1 dose PO DAILY Vitamin D3 (Unknown Otc) 1 dose PO DAILY Vitamin E (Unknown Otc) 1 dose PO DAILY Discontinued Omeprazole 40 mg PO DAILY #30 cap cefuroxime axetiL [Ceftin] 500 mg PO BID #6 tab Discharge Medication List Ezetimibe [Zetia] 10 mg PO DAILY 11/02/21 [History] Gabapentin [Neurontin] 400 mg PO QID 11/02/21 [History] HYDROcodone/APAP 10-325MG [[place] 10-325] 1 tab PO Q6H PRN 11/02/21 [History] Lansoprazole 30 mg PO DAILY 11/02/21 [History] Meloxicam [Mobic] 15 mg PO DAILY 11/02/21 [History] Metoprolol Tartrate [Lopressor] 25 mg PO BID 11/02/21 [History] lisinopriL [Zestril] 20 mg PO DAILY 11/02/21 [History] modafiniL [Provigil] 200 mg PO DAILY 11/02/21 [History] rOPINIRole HCL [Requip] 4 mg PO BID 11/02/21 [History] Rosuvastatin [Crestor] 10 mg PO DAILY 10/17/23 [History] Pramipexole [Mirapex] 0.5 mg PO HS 11/26/24 [History] Albuterol Sulfate [Albuterol Sulfate Hfa] 1 puff INHALATION RT-Q4H PRN 12/15/24 [History] Aspirin 81 mg PO BID 01/01/25 [History] Fluticasone/Umeclidin/Vilanter [Trelegy Ellipta 100-62.5-25] 1 puff INHALATION RT-DAILY 01/02/25 [History] Furosemide [Lasix] 20 mg PO DAILY #30 tab 01/05/25 [Rx] Magnesium (Unknown Otc) 1 dose PO DAILY 01/07/25 [History] Vitamin C (Unknown Otc) 1 dose PO DAILY 01/07/25 [History] Vitamin D3 (Unknown Otc) 1 dose PO DAILY 01/07/25 [History] Vitamin E (Unknown Otc) 1 dose PO DAILY 01/07/25 [History] Diclofenac Sodium Gel [Voltaren 1% Gel] 2 gm TOPICAL TID #1 gm 01/11/25 [Rx] Ipratropium-Albuterol Nebulize [Duoneb 0.5 mg-3 mg/3 ml Soln] 3 ml INHALATION TID #90 ml 01/11/25 [Rx] Moxifloxacin HCl [Avelox] 400 mg PO DAILY #7 tab 01/11/25 [Rx] Tiotropium 2.5 Mcg/Puff [Spiriva Respimat 2.5 Mcg] 2 puff INHALATION RT-DAILY #1 each 01/11/25 [Rx] Follow up Appointment(s)/Referral(s): Juan Diego Monson MD [STAFF PHYSICIAN] - 02/08/25 1:30 pm Stewart Ramos MD [Primary Care Provider] - 1-2 days (office closed at time of dishcharge) Mirna Padilla MD [STAFF PHYSICIAN] - 2 Weeks (Low T cells. Patient to make appo intment.) Adela Moe MD [STAFF PHYSICIAN] - 2 Weeks (office not answering Please call to schedule appointment ) Activity/Diet/Wound Care/Special Instructions: dc abx per dr mix Discharge Disposition: HOME SELF-CARE
--- NOTE | 2025-01-12 18:26 | P.PN ---
Subjective Progress Note Date: 01/11/25 Principal diagnosis: Reason for follow-up pneumonia with question of aspiration Patient is a 79-year-old male with a past medical history significant for Heart Failure, GERD/Reflux, Hyperlipidemia, Hypertension, Musculoskeletal Disorder, Osteoarthritis (OA) with recent recurrent admission to hospital for pneumonia concerning for possible aspiration. On today's evaluation that is 01/11/2025, the patient continues to be afebrile, the patient is on 2 L nasal cannula oxygen and breathing comfortably, the Pt denies having any chest pain and his cough is decreased intensity the patient denies having any abdominal pain no vomiting or any diarrhea. No new lab has been obtained today culture remains to be negative Objective - Vital Signs Vital signs: Vital Signs Temp 98.4 F 01/11/25 07:27 Pulse 68 01/11/25 09:45 Resp 18 01/11/25 07:27 BP 154/76 01/11/25 07:27 Pulse Ox 94 L 01/11/25 07:27 FiO2 Intake & Output 01/10/25 01/11/25 01/11/25 18:59 06:59 18:59 Intake Total 180 Balance 180 Intake: Oral 180 Other: # Voids 2 3 - Exam GENERAL DESCRIPTION: An elderly male lying in bed in no distress RESPIRATORY SYSTEM: Unlabored breathing , decreased breath sounds at bases HEART: S1 S2 regular rate and rhythm , ABDOMEN: Soft , no tenderness EXTREMITIES: No edema feet - Labs CBC & Chem 7: 01/09/25 04:05 01/10/25 22:44 Labs: Abnormal Lab Results - Last 24 Hours (Table) 01/10/25 Range/Units 22:44 Sodium 136 L (137-145) mmol/L BUN 30 H (9-20) mg/dL Glucose 120 H (74-99) mg/dL Microbiology - Last 24 Hours (Table) 01/09/25 12:30 Gram Stain - Preliminary Bronchoalviolar Lavage - Right Bronchial Washings Culture - Preliminary 01/09/25 12:30 Acid Fast Bacilli Smear - Preliminary Bronchoalviolar Lavage - Right 01/08/25 12:16 Gram Stain - Final Sputum Sputum Culture - Final 01/07/25 02:55 Blood Culture - Preliminary Blood Assessment and Plan (1) Pneumonia Status: Acute Code(s): J18.9 - PNEUMONIA, UNSPECIFIED ORGANISM SNOMED Code(s): 126486051 Plan: 1patient presented to hospital with increasing shortness of breath he did have a cough bringing some yellow sputum did have a low-grade fever concerning for p ossible recurrent aspiration pneumonitis as the patient did have history of dysphagia, Schatzki ring, and previous balloon dilation. 2-sputum culture has been negative patient is status post bronchoscopy and lavage those cultures so far negative 3patient has shown improvement with Zosyn will finish therapy with oral Avelox prescription sent to the pharmacy Dictation was produced using [id number] dictation software. please excuse any grammatical, word or spelling errors. Time with Patient: Less than 30
== END 2025-01-11 14:28 | disposition home or self-care (01) | DRG 193 ==
LOC: EC 01:46 → 4SSUR 04:59 → OBSVTOIN 05:00 → 4SSUR 05:27
PROVIDERS: ADMIT Hospitalist; ATTEND Hospitalist
PROC: 0B9C8ZX Drainage of Right Upper Lung Lobe, Via Natural or Artificial Opening Endoscopic, Diagnostic (ICD-10-PCS; 2025-01-09)
PROC: 0B9D8ZX Drainage of Right Middle Lung Lobe, Via Natural or Artificial Opening Endoscopic, Diagnostic (ICD-10-PCS; 2025-01-09)
PROC: 0B9F8ZX Drainage of Right Lower Lung Lobe, Via Natural or Artificial Opening Endoscopic, Diagnostic (ICD-10-PCS; principal; 2025-01-09 12:00)
DX: J18.9 Pneumonia, unspecified organism (principal); J96.01 Acute respiratory failure with hypoxia; I50.32 Chronic diastolic (congestive) heart failure; I11.0 Hypertensive heart disease with heart failure; J44.0 Chronic obstructive pulmonary disease with (acute) lower respiratory infection; Z95.2 Presence of prosthetic heart valve; G25.81 Restless legs syndrome; J61 Pneumoconiosis due to asbestos and other mineral fibers; J69.0 Pneumonitis due to inhalation of food and vomit; K22.2 Esophageal obstruction; G89.29 Other chronic pain; I35.0 Nonrheumatic aortic (valve) stenosis; M19.90 Unspecified osteoarthritis, unspecified site; K22.5 Diverticulum of esophagus, acquired; M54.50 Low back pain, unspecified; K21.00 Gastro-esophageal reflux disease with esophagitis, without bleeding; E78.5 Hyperlipidemia, unspecified; Z79.1 Long term (current) use of non-steroidal anti-inflammatories (NSAID); Z79.51 Long term (current) use of inhaled steroids; Z79.82 Long term (current) use of aspirin; Z79.899 Other long term (current) drug therapy; Z87.01 Personal history of pneumonia (recurrent); Z87.891 Personal history of nicotine dependence; Z96.612 Presence of left artificial shoulder joint; W19.XXXA Unspecified fall, initial encounter
CPT/HCPCS: 31624; 36415; 71045; 71046; 80048; 80053; 82607; 82728; 82747; 82784; 83605; 83735; 83880; 83883; 83921; 84145; 84165; 84484; 85025; 85045; 85610; 85730; 86334; 87040; 87070; 87102; 87116; 87205; 87206; 87390; 88108; 88305; 89050; 93005; 94640; 94760; 96361; 96365; 99285

== ENCOUNTER 2025-02-20 10:32 | Inpatient (IN) | payer MEDICARE ==
--- NOTE | 2025-02-20 11:22 | ED ---
SOB HPI - General Chief Complaint: Shortness of Breath Stated Complaint: Fever Time Seen by Provider: 02/20/25 10:59 Source: patient, RN notes reviewed Mode of arrival: ambulatory Limitations: no limitations - History of Present Illness Initial Comments: This is an 79-year-old male who presents to the emergency department for fevers, coughing, and shortness of breath. States that it started this morning. He was discharged from this facility last month for pneumonia and sepsis and is concerned that he may be getting pneumonia again. States that he did feel much better when he was discharged from the hospital and believes that he recovered completely before getting sick again this morning. Denies any chest pain. His states that he tends to eat laying down in bed even when she tells him not to and is concerned that he may have aspiration pneumonia. Denies any abdominal pain, nausea, or vomiting. MD Complaint: shortness of breath, cough - Related Data Home Medications Medication Instructions Recorded Confirmed Ezetimibe [Zetia] 10 mg PO DAILY 11/02/21 02/20/25 Gabapentin [Neurontin] 400 mg PO QID 11/02/21 02/20/25 HYDROcodone/APAP 10-325MG [[place] 1 tab PO Q6H PRN 11/02/21 02/20/25 10-325] Meloxicam [Mobic] 15 mg PO DAILY 11/02/21 02/20/25 Metoprolol Tartrate [Lopressor] 25 mg PO BID 11/02/21 02/20/25 lisinopriL [Zestril] 20 mg PO DAILY 11/02/21 02/20/25 modafiniL [Provigil] 200 mg PO DAILY 11/02/21 02/20/25 rOPINIRole HCL [Requip] 8 mg PO HS 11/02/21 02/20/25 Rosuvastatin [Crestor] 10 mg PO DAILY 10/17/23 02/20/25 Pramipexole [Mirapex] 0.5 mg PO HS 11/26/24 02/20/25 Albuterol Sulfate [Albuterol 1 puff INHALATION RT-Q4H PRN 12/15/24 02/20/25 Sulfate Hfa] Aspirin 81 mg PO BID 01/01/25 02/20/25 Fluticasone/Umeclidin/Vilanter 1 puff INHALATION RT-DAILY 01/02/25 02/20/25 [Trelecrystal Ellipta 100-62.5-25] Magnesium (Unknown Otc) 1 dose PO DAILY 01/07/25 02/20/25 Vitamin C (Unknown Otc) 1 dose PO DAILY 01/07/25 02/20/25 Vitamin D3 (Unknown Otc) 1 dose PO DAILY 01/07/25 02/20/25 Vitamin E (Unknown Otc) 1 dose PO DAILY 01/07/25 02/20/25 Furosemide [Lasix] 40 mg PO DAILY 02/20/25 02/20/25 Omeprazole 40 mg PO DAILY 02/20/25 02/20/25 Previous Rx's Medication Instructions Recorded Diclofenac Sodium Gel [Voltaren 1% 2 gm TOPICAL TID #1 gm 01/11/25 Gel] Ipratropium-Albuterol Nebulize 3 ml INHALATION TID #90 ml 01/11/25 [Duoneb 0.5 mg-3 mg/3 ml Soln] Tiotropium 2.5 Mcg/Puff [Spiriva 2 puff INHALATION RT-DAILY #1 each 01/11/25 Respimat 2.5 Mcg] Allergies Allergy/AdvReac Type Severity Reaction Status Date / Time No Known Allergies Allergy Verified 02/20/25 14:56 Review of Systems ROS Statement: Those systems with pertinent positive or pertinent negative responses have been documented in the HPI. ROS Other: All systems not noted in ROS Statement are negative. Past Medical History Past Medical History: Heart Failure, GERD/Reflux, Hyperlipidemia, Hypertension, Musculoskeletal Disorder, Osteoarthritis (OA) Additional Past Medical History / Comment(s): esophageal constriction in the past, aortic valve stenosis, RLS, past hx. of compression fx. in back after a fall, chronic back pain, dry cough - has seen Dr. 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, Left Shoulder reverse replacement Past Anesthesia/Blood Transfusion Reactions: No Reported Reaction Past Psychological History: No Psychological Hx Reported Smoking Status: Former smoker Past Alcohol Use History: Occasional Past Drug Use History: None Reported - Past Family History Mother Family Medical History: No Reported History, Hypertension Father Family Medical History: No Reported History, Hypertension General Exam Limitations: no limitations General appearance: alert, in no apparent distress Head exam: Present: atraumatic, normocephalic, normal inspection Respiratory exam: Present: rales, decreased breath sounds, prolonged expiratory Cardiovascular Exam: Present: regular rate, normal rhythm GI/Abdominal exam: Present: soft. Absent: distended, tenderness Neurological exam: Present: alert, oriented X3, CN II-XII intact Psychiatric exam: Present: normal affect, normal mood Skin exam: Present: warm, dry, intact, normal color. Absent: rash Course Vital Signs 02/20/25 02/20/25 02/20/25 10:48 11:41 11:42 Temperature 100.7 F H Pulse Rate 87 73 Respiratory 18 18 Rate Blood Pressure 93/60 87/46 O2 Sat by Pulse 90 L 89 L 93 L Oximetry 02/20/25 02/20/25 02/20/25 12:00 12:30 12:45 Temperature Pulse Rate 70 67 64 Respiratory 18 18 18 Rate Blood Pressure 78/47 85/66 74/50 O2 Sat by Pulse 93 L 95 95 Oximetry 02/20/25 02/20/25 02/20/25 13:15 13:45 15:07 Temperature Pulse Rate 65 64 59 L Respiratory 18 18 16 Rate Blood Pressure 83/53 98/62 105/66 O2 Sat by Pulse 94 L 97 94 L Oximetry 02/20/25 02/20/25 02/20/25 15:12 15:24 15:48 Temperature 98.0 F Pulse Rate 55 L 56 L 64 Respiratory 18 Rate Blood Pressure 100/55 O2 Sat by Pulse 94 L Oximetry Medical Decision Making - Medical Decision Making This is an 79 year old male who presents to the emergency department for shortness of breath. Was pt. sent in by a medical professional or institution? @ -No Did you speak to anyone other than the patient for history? @ -No Did you review nursing and triage notes? @ -Yes, and I agree, it is accurate with regards to the patient's symptoms. Were old charts reviewed? @ -No Differential Diagnosis? @ -Differential Dyspnea: Coronary syndrome, arrhythmia, tamponade, asthma, COPD, pulmonary embolism, pneumonia, pneumothorax, pulmonary effusion, anaphylaxis, diabetic ketoacidosis, flailed chest, pulmonary contusion, diaphragmatic rupture, anemia, neuromuscular, this is not meant to be an all-inclusive list. EKG interpreted by me (3pts min.)? @ -EKG interpreted by me demonstrating the following: Sinus rhythm. Ventricular rate 72 bpm, [place] interval 179 ms, QRS duration 105 ms, QTc 396 ms. X-rays interpreted by me (1pt min.)? @ -Chest x-ray obtained. My interpretation identifies right sided opacities. CT interpreted by me (1pt min.)? @ -Not obtained U/S interpreted by me (1pt. min.)? @ -Not obtained What testing was considered but not performed? (CT, X-rays, U/S, labs)? Why? @ -None What meds were considered but not given? Why? @ -None Did you discuss the management of the patient with other professionals? @ -Yes, Carla Shipley with [facility], who accepts the patient for admission. Did you reconcile home meds? @ -Yes Was smoking cessation discussed for >3mins.? @ -No Was critical care preformed (if so, how long)? @ -No Were there social determinants of health that impacted care today? How? (Homelessness, low income, unemployed, alcoholism, drug addiction, transportation, low edu. Level, literacy, decrease access to med. care, retirement, rehab)? @ -No Was there de-escalation of care discussed even if they declined? (Discuss DNR or withdrawal of care, Hospice)? @ -No What co-morbidities impacted this encounter? (DM, HTN, Smoking, COPD, CAD, Cancer, CVA, Hep., AIDS, mental health diagnosis, sleep apnea, morbid obesity)? @ -HTN, HLD, CHF Was patient admitted / discharged? @ -Admitted. Lab work demonstrates leukocytosis with a white blood cell count of 17.69. He was also febrile on arrival with a temperature of 100.7. Chest x- ray demonstrates COPD with ongoing interstitial densities and now worsening pat safia and confluent airspace disease on the right. They advised consideration of inflammatory pneumonitis or infection. Early atypical pulmonary edema is not excluded. BNP only 1010 which is considered normal for his age. Given that he is febrile with leukocytosis, infectious process is most likely. He did meet sepsis criteria at approximately 1230 with SIRS criteria of the fever and leukocytosis and pneumonia being the source of infection. Blood culture had been obtained. He was given 2.5 L of lactated Ringer's per the 30 to 40 mL/kg fluid requirements and started on ceftriaxone and azithromycin. Patient admitted to medicine for pneumonia and sepsis with consult placed to infectious disease. Case discussed with ED attending Dr. Santos. Undiagnosed new problem with uncertain prognosis? @ -None Drug Therapy requiring intensive monitoring for toxicity (Heparin, Nitro, Insulin, Cardizem)? @ -None Were any procedures done? @ -None Diagnosis/symptom? @ -Pneumonia, sepsis Acute, or Chronic, or Acute on Chronic? @ -Acute Uncomplicated (without systemic symptoms) or Complicated (systemic symptoms)? @ -Complicated Side effects of treatment? @ -None Exacerbation, Progression, or Severe Exacerbation] @ -Not applicable Poses a threat to life or bodily function? @ -Yes, can lead to septic shock and - Lab Data Result diagrams: 02/20/25 11:21 02/20/25 11:21 Lab Results 02/20/25 02/20/25 02/20/25 Range/Units 11:21 11:21 11:21 WBC 17.69 H (4.50-10.00) 10*3/uL RBC 4.26 L (4.40-5.60) 10*6/uL Hgb 11.9 L (13.0-17.0) g/dL Hct 36.4 L (39.6-50.0) % MCV 85.4 (80.0-97.0) fL MCH 27.9 (27.0-32.0) pg MCHC 32.7 (32.0-37.0) g/dL Plt Count 246 (140-440) 10*3/uL MPV 9.5 (9.5-12.2) fL Immature Gran % (Auto) 0.5 % Neutrophils % 91.5 % Lymphocytes % 3.3 % Monocytes % 4.0 % Eosinophils % 0.5 % Basophils % 0.2 % Immature Gran # 0.08 H (0.00-0.04) 10*3/uL Neutrophils # 16.19 H (1.80-7.70) 10*3/uL Lymphocytes # 0.59 L (0.90-5.00) 10*3/uL Monocytes # 0.70 (0.20-1.00) 10*3/uL Eosinophils # 0.09 (0.04-0.35) 10*3/uL Basophils # 0.04 (0.00-0.10) 10*3/uL PT 11.7 (10.0-12.5) sec INR 1.1 (<1.2) APTT 28.5 (22.0-30.0) sec Sodium 136 L (137-145) mmol/L Potassium 5.3 H (3.5-5.1) mmol/L Chloride 99 (98-107) mmol/L Carbon Dioxide 26 (22-30) mmol/L Anion Gap 11 mmol/L BUN 49 H (9-20) mg/dL Creatinine 1.15 (0.66-1.25) mg/dL Est GFR (CKD-EPI)AfAm 69 (>60 ml/min/1.73 sqM) Est GFR (CKD-EPI)NonAf 60 (>60 ml/min/1.73 sqM) Glucose 108 H (74-99) mg/dL Plasma Lactic Acid Krishna (0.7-2.0) mmol/L Calcium 9.2 (8.4-10.2) mg/dL Magnesium 2.3 (1.6-2.3) mg/dL Total Bilirubin 0.5 (0.2-1.3) mg/dL AST 31 (17-59) U/L ALT 24 (4-49) U/L Alkaline Phosphatase 98 (38-126) U/L NT-Pro-B Natriuret Pep 1010 pg/mL Total Protein 7.3 (6.3-8.2) g/dL Albumin 3.8 (3.5-5.0) g/dL Urine Color Urine Appearance (Clear) Urine pH (5.0-8.0) Ur Specific Ider (1.001-1.035) Urine Protein (Negative) Urine Glucose (UA) (Negative) Urine Ketones (Negative) Urine Blood (Negative) Urine Nitrite (Negative) Urine Bilirubin (Negative) Urine Urobilinogen (<2.0) mg/dL Ur Leukocyte Esterase (Negative) Influenza Type A (PCR) (Not Detectd) Influenza Type B (PCR) (Not Detectd) RSV (PCR) (Not Detectd) SARS-CoV-2 (PCR) (Not Detectd) 02/20/25 02/20/25 02/20/25 Range/Units 11:21 11:35 14:56 WBC (4.50-10.00) 10*3/uL RBC (4.40-5.60) 10*6/uL Hgb (13.0-17.0) g/dL Hct (39.6-50.0) % MCV (80.0-97.0) fL MCH (27.0-32.0) pg MCHC (32.0-37.0) g/dL Plt Count (140-440) 10*3/uL MPV (9.5-12.2) fL Immature Gran % (Auto) % Neutrophils % % Lymphocytes % % Monocytes % % Eosinophils % % Basophils % % Immature Gran # (0.00-0.04) 10*3/uL Neutrophils # (1.80-7.70) 10*3/uL Lymphocytes # (0.90-5.00) 10*3/uL Monocytes # (0.20-1.00) 10*3/uL Eosinophils # (0.04-0.35) 10*3/uL Basophils # (0.00-0.10) 10*3/uL PT (10.0-12.5) sec INR (<1.2) APTT (22.0-30.0) sec Sodium (137-145) mmol/L Potassium (3.5-5.1) mmol/L Chloride (98-107) mmol/L Carbon Dioxide (22-30) mmol/L Anion Gap mmol/L BUN (9-20) mg/dL Creatinine (0.66-1.25) mg/dL Est GFR (CKD-EPI)AfAm (>60 ml/min/1.73 sqM) Est GFR (CKD-EPI)NonAf (>60 ml/min/1.73 sqM) Glucose (74-99) mg/dL Plasma Lactic Acid Krishna 1.4 (0.7-2.0) mmol/L Calcium (8.4-10.2) mg/dL Magnesium (1.6-2.3) mg/dL Total Bilirubin (0.2-1.3) mg/dL AST (17-59) U/L ALT (4-49) U/L Alkaline Phosphatase (38-126) U/L NT-Pro-B Natriuret Pep pg/mL Total Protein (6.3-8.2) g/dL Albumin (3.5-5.0) g/dL Urine Color Colorless Urine Appearance Clear (Clear) Urine pH 6.5 (5.0-8.0) Ur Specific Ider 1.012 (1.001-1.035) Urine Protein Negative (Negative) Urine Glucose (UA) Negative (Negative) Urine Ketones Negative (Negative) Urine Blood Negative (Negative) Urine Nitrite Negative (Negative) Urine Bilirubin Negative (Negative) Urine Urobilinogen <2.0 (<2.0) mg/dL Ur Leukocyte Esterase Negative (Negative) Influenza Type A (PCR) Not Detected (Not Detectd) Influenza Type B (PCR) Not Detected (Not Detectd) RSV (PCR) Not Detected (Not Detectd) SARS-CoV-2 (PCR) Not Detected (Not Detectd) - Radiology Data Radiology results: report reviewed, image reviewed Disposition Clinical Impression: Pneumonia, Sepsis Disposition: ADMITTED IP TO THIS HOSP
[2025-02-20] MEDS: ACETAMINOPHEN TAB 500 MG TAB PO STA (11:36)
[2025-02-20] MEDS: LACTATED RINGERS 1,000 ML IV SCH ×3 (11:37→21:30)
[2025-02-20 11:43] LABS: Basophils # (A) 0.04 10*3/uL (0.00-0.10); Basophils % (A) 0.2 %; Eosinophils # (A) 0.09 10*3/uL (0.04-0.35); Eosinophils % (A) 0.5 %; HCT 36.4 % (39.6-50.0); HGB 11.9 g/dL (13.0-17.0); Lymphocytes # (A) 0.59 10*3/uL (0.90-5.00); Lymphocytes % (A) 3.3 %; MCH 27.9 pg (27.0-32.0); MCHC 32.7 g/dL (32.0-37.0); MCV 85.4 fL (80.0-97.0); Monocytes # (A) 0.70 10*3/uL (0.20-1.00); Monocytes % (A) 4.0 %; Neutrophils # (A) 16.19 10*3/uL (1.80-7.70); Neutrophils % (A) 91.5 %; Platelet Count 246 10*3/uL (140-440); RBC 4.26 10*6/uL (4.40-5.60); RDW 17.0 % (11.5-14.5); WBC 17.69 10*3/uL (4.50-10.00)
[2025-02-20 12:01] LABS: INR 1.1 (<1.2); Partial Thromboplastin Time 28.5 sec (22.0-30.0); Prothrombin Time 11.7 sec (10.0-12.5)
[2025-02-20 12:07] LABS: ALT 24 U/L (4-49); AST 31 U/L (17-59); African American GFR (CKD) 69 (>60 ml/min/1.73 sqM); Albumin 3.8 g/dL (3.5-5.0); Alkaline Phosphatase 98 U/L (38-126); Anion Gap 11 mmol/L; Blood Urea Nitrogen 49 mg/dL (9-20); Calcium 9.2 mg/dL (8.4-10.2); Carbon Dioxide 26 mmol/L (22-30); Chloride 99 mmol/L (98-107); Glucose 108 mg/dL (74-99); Magnesium 2.3 mg/dL (1.6-2.3); Non-African American GFR(CKD) 60 (>60 ml/min/1.73 sqM); Potassium 5.3 mmol/L (3.5-5.1); Sodium 136 mmol/L (137-145); Total Protein 7.3 g/dL (6.3-8.2)
[2025-02-20 12:16] LABS: NT-Pro-B-Type Natriuretic Pept 1010 pg/mL
[2025-02-20 12:20] LABS: RSV Not Detected (Not Detectd)
[2025-02-20] MEDS ORDERED: IPRATROPIUM-ALBUTEROL 3 ML NEB INHALATION PRN (12:39)
[2025-02-20] MEDS ORDERED: PNEUMONIA PROTOCOL UTILIZED 1 EACH MISC PO PRN (12:39)
[2025-02-20] MEDS: AZITHROMYCIN 500 MG in SODIUM CHLORIDE 0.9% 250 ML IVPB STA (13:28)
--- NOTE | 2025-02-20 13:36 | XR ---
EXAMINATION TYPE: XR chest 2V DATE OF EXAM: 02/20/2025 12:00 PM COMPARISON: 02/08/2025 CLINICAL INDICATION: Male, 79 years old with history of difficulty breathing, shortness of breath TECHNIQUE: AP and lateral views FINDINGS: The heart is mildly enlarged. Hyperinflation. Either pleural plaques are calcified granulomas lateral left upper lobe. Ongoing interstitial opacities with worsening patchy and confluent airspace opacity on the right. End-stage degenerative change right shoulder. Reverse left shoulder arthroplasty parti ally visualized. IMPRESSION: COPD with ongoing interstitial densities and now worsening patchy and confluent airspace disease on t he right. Consider inflammatory pneumonitis or infection. Early atypical pulmonary edema not entirely excluded. [facility], , 02/20/2025 1:34 PM
[2025-02-20] MEDS: LACTATED RINGERS 500 ML IV ONE (14:08)
[2025-02-20] MEDS ORDERED: NALOXONE 0.4 MG/ML 1 ML VIAL IV PRN (14:52)
[2025-02-20] MEDS ORDERED: ACETAMINOPHEN TAB 325 MG TAB PO PRN (14:52)
[2025-02-20] MEDS ORDERED: MORPHINE SULFATE 4 MG/ML SYRINGE IV PRN (14:52)
[2025-02-20] MEDS ORDERED: ONDANSETRON 4 MG/2 ML VIAL IVP PRN (14:52)
[2025-02-20] MEDS ORDERED: ALBUTEROL NEBULIZED 2.5 MG/3 ML INHALATION PRN (15:08)
[2025-02-20] MEDS: IPRATROPIUM-ALBUTEROL 3 ML NEB INHALATION SCH (15:12)
[2025-02-20 16:00] LABS: Bilirubin,Urine Negative (Negative); Blood,Urine Negative (Negative); Color,Urine Colorless; Glucose,Urine (UA) Negative (Negative); Ketones,Urine Negative (Negative); Leukocyte Esterase,Urine Negative (Negative); Nitrite,Urine Negative (Negative); PH, Urine 6.5 (5.0-8.0); Protein,Urine Negative (Negative); Specific Gravity,Urine 1.012 (1.001-1.035); Urobilinogen,Urine <2.0 mg/dL (<2.0)
[2025-02-20] MEDS: DICLOFENAC SODIUM GEL 100 GM TUBE TOPICAL SCH (16:21)
[2025-02-20] MEDS: GABAPENTIN 400 MG CAP PO SCH (18:26)
[2025-02-20] MEDS: SYMBICORT 160-4.5 MCG INHALER INHALATION SCH (19:57)
[2025-02-20] MEDS: METOPROLOL TARTRATE 25 MG TAB PO SCH (20:57)
[2025-02-20] MEDS ORDERED: SYMBICORT 160-4.5 MCG INHALER INHALATION SCH (21:00)
[2025-02-20] MEDS: ASPIRIN 81 MG PO SCH (21:28)
[2025-02-20] MEDS: PRAMIPEXOLE 0.5 MG TAB PO SCH (21:29)
[2025-02-20] MEDS: rOPINIRole HCL 4 MG TABLET PO SCH (21:29)
[2025-02-20] MEDS: PIPERACILLIN-TAZOBACTAM 3.375 GM in SODIUM CHLORIDE 0.9% 100 ML IVPB SCH (21:46)
--- NOTE | 2025-02-20 22:08 | HP ---
HISTORY AND PHYSICAL CHIEF COMPLAINT: Cough and sputum. HISTORY OF PRESENT ILLNESS: This 79-year-old gentleman with a past medical history of apparent Zenker diverticulum, being followed at [facility], was complaining of cough and sputum. The patient was found to have right lower lobe pneumonia. The patient admitted for further evaluation and treatment. There is no history of fever, rigors, or chills at this time. PAST MEDICAL HISTORY: History of Zenker diverticulum, CHF, hypertension, hyperlipidemia. Rest of history and chart is also reviewed. HOME MEDICATIONS: Reviewed. Include gabapentin. Dose and rest of medications reviewed. ALLERGIES: None. FAMILY HISTORY: History of hypertension. SOCIAL HISTORY: Previous smoker. REVIEW OF SYSTEMS: A 14-point review of systems is negative except as mentioned earlier. PHYSICAL EXAMINATION: VITAL SIGNS: Pulse 61, blood pressure 103/40, and respirations 16. HEENT: Conjunctivae normal. NECK: No jugular venous distention. CARDIOVASCULAR: S1, S2. RESPIRATIONS: Few scattered rhonchi and crackles. ABDOMEN: Soft, nontender. NERVOUS SYSTEM: No focal deficit. LABORATORY DATA: Reviewed. ASSESSMENT: 1. Acute right lower pneumonia, possibly aspiration. 2. 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 3. Gastroesophageal reflux disease. 4. Hypertension. 5. Hyperlipidemia. 6. Multiple complex medical issues. RECOMMENDATIONS AND DISCUSSION: This 79-year-old gentleman presented with multiple complex medical issues. We will monitor the patient closely. Continue the current medication. I would recommend broad- spectrum IV antibiotics, bronchodilators, Pulmonary as well as Infectious Disease evaluations. Guarded prognosis because of multiple complex medical issues and further recommendations, see orders for the details. Home medications will be continued. MMODL / IJN: [id number] /
--- NOTE | 2025-02-20 22:37 | P.CONS ---
History of Present Illness - Reason for Consult Consult date: 02/20/25 Pneumonia, sepsis Requesting physician: Jennifer Galvan - Chief Complaint Fever shortness of breath and cough x 1 day. - History of Present Illness Patient is a 79-year-old male with a past medical history significant for Heart Failure, GERD/Reflux, Hyperlipidemia, Hypertension, Musculoskeletal Disorder, Osteoarthritis (OA), patient has been brought into the hospital for evaluation of fever coughing and increasing shortness of breath apparently patient symptoms started this morning per the at the bedside mention patient was doing well yesterday however he did eat his dinner very late and subsequently went to bed and woke up this morning with increasing shortness of breath cough and was running a fever, on presentation to the hospital patient did have temperature 100.7 F patient was not tachycardic or hypotensive mildly hypoxic currently on 2 L nasal oxygen patient did have a white count of 17.69 with a left shift creatinine is 1.15 potassium is 5.3 liver enzymes are normal urine has been negative influenza RSV COVID testing has been negative patient did have a chest x-ray COPD with ongoing interstitial density worsening patchy and confluent airspace disease on the right concerning for inflammatory pneumonitis or infection patient was started on Zosyn received a dose of Zithromax admitted to the hospital infectious he was consulted regarding pneumonia and sepsis Review of Systems Positive points has been mentioned in HPI complete review could not be obtained because of his underlying mental status Past Medical History Past Medical History: Heart Failure, GERD/Reflux, Hyperlipidemia, Hypertension, Musculoskeletal Disorder, Osteoarthritis (OA) Additional Past Medical History / Comment(s): esophageal constriction in the past, aortic valve stenosis, RLS, past hx. of compression fx. in back after a fall, chronic back pain, dry cough - has seen Dr. 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, Left Shoulder reverse replacement Past Anesthesia/Blood Transfusion Reactions: No Reported Reaction Past Psychological History: No Psychological Hx Reported Smoking Status: Former smoker Past Alcohol Use History: Occasional Past Drug Use History: None Reported - Past Family History Mother Family Medical History: No Reported History, Hypertension Father Family Medical History: No Reported History, Hypertension Medications and Allergies Home Medications Medication Instructions Recorded Confirmed Type Ezetimibe [Zetia] 10 mg PO DAILY 11/02/21 02/20/25 History Gabapentin [Neurontin] 400 mg PO QID 11/02/21 02/20/25 History HYDROcodone/APAP 10-325MG [[place] 1 tab PO Q6H PRN 11/02/21 02/20/25 History 10-325] Meloxicam [Mobic] 15 mg PO DAILY 11/02/21 02/20/25 History Metoprolol Tartrate [Lopressor] 25 mg PO BID 11/02/21 02/20/25 History lisinopriL [Zestril] 20 mg PO DAILY 11/02/21 02/20/25 History modafiniL [Provigil] 200 mg PO DAILY 11/02/21 02/20/25 History rOPINIRole HCL [Requip] 8 mg PO HS 11/02/21 02/20/25 History Rosuvastatin [Crestor] 10 mg PO DAILY 10/17/23 02/20/25 History Pramipexole [Mirapex] 0.5 mg PO HS 11/26/24 02/20/25 History Albuterol Sulfate [Albuterol 1 puff INHALATION RT-Q4H PRN 12/15/24 02/20/25 History Sulfate Hfa] Aspirin 81 mg PO BID 01/01/25 02/20/25 History Fluticasone/Umeclidin/Vilanter 1 puff INHALATION RT-DAILY 01/02/25 02/20/25 History [Trelegy Ellipta 100-62.5-25] Magnesium (Unknown Otc) 1 dose PO DAILY 01/07/25 02/20/25 History Vitamin C (Unknown Otc) 1 dose PO DAILY 01/07/25 02/20/25 History Vitamin D3 (Unknown Otc) 1 dose PO DAILY 01/07/25 02/20/25 History Vitamin E (Unknown Otc) 1 dose PO DAILY 01/07/25 02/20/25 History Diclofenac Sodium Gel [Voltaren 1% 2 gm TOPICAL TID #1 gm 01/11/25 02/20/25 Rx Gel] Ipratropium-Albuterol Nebulize 3 ml INHALATION TID #90 ml 01/11/25 02/20/25 Rx [Duoneb 0.5 mg-3 mg/3 ml Soln] Tiotropium 2.5 Mcg/Puff [Spiriva 2 puff INHALATION RT-DAILY #1 each 01/11/25 02/20/25 Rx Respimat 2.5 Mcg] Furosemide [Lasix] 40 mg PO DAILY 02/20/25 02/20/25 History Omeprazole 40 mg PO DAILY 02/20/25 02/20/25 History Allergies Allergy/AdvReac Type Severity Reaction Status Date / Time No Known Allergies Allergy Verified 02/20/25 14:56 Physical Exam Vitals: Vital Signs Temp Pulse Resp BP Pulse Ox 02/20/25 15:48 98.0 F 64 18 100/55 94 L 02/20/25 15:24 56 L 02/20/25 15:12 55 L 02/20/25 15:07 59 L 16 105/66 94 L 02/20/25 13:45 64 18 98/62 97 02/20/25 13:15 65 18 83/53 94 L 02/20/25 12:45 64 18 74/50 95 02/20/25 12:30 67 18 85/66 95 02/20/25 12:00 70 18 78/47 93 L 02/20/25 11:42 93 L 02/20/25 11:41 73 18 87/46 89 L 02/20/25 10:48 100.7 F H 87 18 93/60 90 L Intake and Output 02/20/25 02/20/25 02/20/25 06:59 14:59 22:59 Other: Weight 68.492 kg GENERAL DESCRIPTION: Elderly male lying in bed, no distress. No tachypnea or accessory muscle of respiration use. HEENT: Shows Pallor , no scleral icterus. Oral mucous membrane is dry. No pharyngeal erythema or thrush NECK: Trachea central, no thyromegaly. LUNGS: Unlabored breathing. Decreased internal breath sound HEART: S1, S2, regular rate and rhythm. No loud murmur ABDOMEN: Soft, no tenderness , guarding or rigidity, no organomegaly EXTREMITIES: No edema of feet. SKIN: No rash, no masses palpable. NEUROLOGICAL: The patient is sleepy lethargic orientation cannot be determined Results CBC & Chem 7: 02/20/25 11:21 02/20/25 11:21 Labs: Abnormal Lab Results - Last 24 Hours (Table) 02/20/25 02/20/25 Range/Units 11:21 11:21 WBC 17.69 H (4.50-10.00) 10*3/uL RBC 4.26 L (4.40-5.60) 10*6/uL Hgb 11.9 L (13.0-17.0) g/dL Hct 36.4 L (39.6-50.0) % Immature Gran # 0.08 H (0.00-0.04) 10*3/uL Neutrophils # 16.19 H (1.80-7.70) 10*3/uL Lymphocytes # 0.59 L (0.90-5.00) 10*3/uL Sodium 136 L (137-145) mmol/L Potassium 5.3 H (3.5-5.1) mmol/L BUN 49 H (9-20) mg/dL Glucose 108 H (74-99) mg/dL Assessment and Plan (1) Pneumonia Current Visit: Yes Status: Acute Code(s): J18.9 - PNEUMONIA, UNSPECIFIED ORGANISM SNOMED Code(s): 752844893 (2) Sepsis Current Visit: Yes Status: Acute Code(s): A41.9 - SEPSIS, UNSPECIFIED ORGANISM SNOMED Code(s): 09322873 Plan: 1patient presented hospital with sepsis in this patient who did have fever elevated white count meeting currently for SIRS source is right-sided pneumonia likely of aspiration etiology in this patient who did have a history of Schatzki ring nd previous balloon dilatation had also had a recent admission to hospital about a month ago with similar presentation with an aspiration pneumonia 2-we will try to obtain a sputum for Gram stain and culture check a CRP and a procalcitonin 3-patient empirically treated with Zosyn 3.375 grams every 8 hours along with aspiration precaution at the bedside question answered We will follow on clinical condition and cultures to further adjust medication if needed Thank you for this consultation we will follow the patient along with you Dictation was produced using [employer] software. please excuse any grammatical, word or spelling errors. Time with Patient: Greater than 30
--- NOTE | 2025-02-21 04:01 | P.CNPUL ---
History of Present Illness Consult date: 02/21/25 Requesting physician: Yanelis Fields Reason for consult: pneumonia Chief complaint: Fevers History of present illness: Patient is a 79-year-old male with past medical history significant for dysphag ia, esophageal strictures with previous balloon dilation, hiatal hernia, GERD, recurrent pneumonias, hypertension, hyperlipidemia, aortic valve stenosis status post TAVR, and recent left shoulder replacement. The patient has been treated on several occasions for recurrent pneumonias. In fact, he was just hospitalized last month for the same. Did undergo bronchoscopy with BAL on 01/09/2025, bacterial cultures were nondiagnostic. Fungal cultures showing Gretchen albicans and Krusei. Patient return to the emergency department yesterday morning complaining of fevers, coughing, and shortness of breath. Starting over the last 24 hours. Did have a fever of 100.7 F on arrival. CBC showing leukocytosis with WBC count of 17.69. Chest x-ray showing chronic interstitial changes and worsening patchy and confluent airspace opacity on the right. Pleural-based calcifications at the right diaphragm. Started on IV Zosyn in the ED. Remaining labs including a CBC with a WBC count of 17.69, hemo globin 11.9, platelets 246. CMP: Sodium 136, potassium 5.3, chloride 99, serum bicarb 26, BUN 49, creatinine 1.15, glucose 1.4. LFTs not elevated. NT proBNP 1100 send. Procalcitonin level 0.46. Urinalysis unremarkable for infection. Negative for influenza A/B, RSV, COVID. Urine Legionella antigen negative. Patient currently being seen on the cardiac stepdown unit. He is resting comfortably on 2 L/min nasal cannula. No acute distress. Symptoms started rather abruptly over the last 24 hours. Endorsing increased work of breathing, persistent congested cough, and intermittent fevers. Denies hemoptysis. Denies pleurisy. Denies sick contacts. Denies recent travel. He has ongoing issues with dysphagia. Follows with chief concierge on an outpatient basis. Most recent EGD done 11/29/2024 remarkable for mild acute on chronic esophagitis. No strictures, dysplasia. Vital signs are stable. Review of Systems Constitutional: Reports fatigue, Reports fever, Denies night sweats, Denies poor appetite, Denies weight gain, Denies weight loss Ears, nose, mouth and throat: Denies headache, Denies nasal congestion, Denies nasal discharge, Denies post-nasal drip, Denies sinus pain, Denies sinus pressure, Denies sore throat Cardiovascular: Denies chest pain, Denies leg edema, Denies lightheadedness, Denies orthopnea, Denies palpitations, Denies paroxysmal nocturnal dyspnea, Den ies syncope Respiratory: Reports dyspnea, Denies cough with sputum, Denies excessive sputum, Denies home oxygen, Denies pain on inspiration, Denies wheezing Gastrointestinal: Denies abdominal pain, Denies change in bowel habits, Denies diarrhea, Denies nausea, Denies vomiting Genitourinary: Denies dysuria Musculoskeletal: Denies any limited range of motion, pain or injury Integumentary: Denies rash Neurological: Denies head injury, Denies headaches, Denies seizures, Denies syncope Psychiatric: Denies anxiety, Denies depression Hematologic/Lymphatic: Denies lymphadenopathy Past Medical History Past Medical History: Heart Failure, GERD/Reflux, Hyperlipidemia, Hypertension, Musculoskeletal Disorder, Osteoarthritis (OA) Additional Past Medical History / Comment(s): esophageal constriction in the past, aortic valve stenosis, RLS, past hx. of compression fx. in back after a fall, chronic back pain, dry cough - has seen Dr. 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, Left Shoulder reverse replacement Past Anesthesia/Blood Transfusion Reactions: No Reported Reaction Past Psychological History: No Psychological Hx Reported Smoking Status: Former smoker Past Alcohol Use History: Occasional Past Drug Use History: None Reported - Past Family History Mother Family Medical History: No Reported History, Hypertension Father Family Medical History: No Reported History, Hypertension Medications and Allergies Home Medications Medication Instructions Recorded Confirmed Type Ezetimibe [Zetia] 10 mg PO DAILY 11/02/21 02/20/25 History Gabapentin [Neurontin] 400 mg PO QID 11/02/21 02/20/25 History HYDROcodone/APAP 10-325MG [Lentner 1 tab PO Q6H PRN 11/02/21 02/20/25 History 10-325] Meloxicam [Mobic] 15 mg PO DAILY 11/02/21 02/20/25 History Metoprolol Tartrate [Lopressor] 25 mg PO BID 11/02/21 02/20/25 History lisinopriL [Zestril] 20 mg PO DAILY 11/02/21 02/20/25 History modafiniL [Provigil] 200 mg PO DAILY 11/02/21 02/20/25 History rOPINIRole HCL [Requip] 8 mg PO HS 11/02/21 02/20/25 History Rosuvastatin [Crestor] 10 mg PO DAILY 10/17/23 02/20/25 History Pramipexole [Mirapex] 0.5 mg PO HS 11/26/24 02/20/25 History Albuterol Sulfate [Albuterol 1 puff INHALATION RT-Q4H PRN 12/15/24 02/20/25 History Sulfate Hfa] Aspirin 81 mg PO BID 01/01/25 02/20/25 History Fluticasone/Umeclidin/Vilanter 1 puff INHALATION RT-DAILY 01/02/25 02/20/25 History [Trelegy Ellipta 100-62.5-25] Magnesium (Unknown Otc) 1 dose PO DAILY 01/07/25 02/20/25 History Vitamin C (Unknown Otc) 1 dose PO DAILY 01/07/25 02/20/25 History Vitamin D3 (Unknown Otc) 1 dose PO DAILY 01/07/25 02/20/25 History Vitamin E (Unknown Otc) 1 dose PO DAILY 01/07/25 02/20/25 History Diclofenac Sodium Gel [Voltaren 1% 2 gm TOPICAL TID #1 gm 01/11/25 02/20/25 Rx Gel] Ipratropium-Albuterol Nebulize 3 ml INHALATION TID #90 ml 01/11/25 02/20/25 Rx [Duoneb 0.5 mg-3 mg/3 ml Soln] Tiotropium 2.5 Mcg/Puff [Spiriva 2 puff INHALATION RT-DAILY #1 each 01/11/25 02/20/25 Rx Respimat 2.5 Mcg] Furosemide [Lasix] 40 mg PO DAILY 02/20/25 02/20/25 History Omeprazole 40 mg PO DAILY 02/20/25 02/20/25 History Allergies Allergy/AdvReac Type Severity Reaction Status Date / Time No Known Allergies Allergy Verified 02/20/25 14:56 Physical Exam Vitals: Vital Signs Temp Pulse Pulse Resp BP BP BP 02/20/25 23:26 98.2 F 16 89/48 102/61 02/20/25 20:09 64 02/20/25 19:58 62 02/20/25 19:49 99.0 F 61 16 103/40 02/20/25 18:27 98.4 F 62 18 107/47 02/20/25 17:46 98.1 F 58 L 18 89/53 02/20/25 15:48 98.0 F 64 18 100/55 02/20/25 15:24 56 L 02/20/25 15:12 55 L 02/20/25 15:07 59 L 16 105/66 02/20/25 13:45 64 18 98/62 02/20/25 13:15 65 18 83/53 02/20/25 12:45 64 18 74/50 02/20/25 12:30 67 18 85/66 02/20/25 12:00 70 18 78/47 02/20/25 11:42 02/20/25 11:41 73 18 87/46 02/20/25 10:48 100.7 F H 87 18 93/60 Pulse Ox 02/20/25 23:26 95 02/20/25 20:09 02/20/25 19:58 02/20/25 19:49 91 L 02/20/25 18:27 96 02/20/25 17:46 95 02/20/25 15:48 94 L 02/20/25 15:24 02/20/25 15:12 02/20/25 15:07 94 L 02/20/25 13:45 97 02/20/25 13:15 94 L 02/20/25 12:45 95 02/20/25 12:30 95 02/20/25 12:00 93 L 02/20/25 11:42 93 L 02/20/25 11:41 89 L 02/20/25 10:48 90 L Intake and Output 02/20/25 02/20/25 02/21/25 14:59 22:59 06:59 Intake Total 138 Output Total 600 Balance -462 Intake: IV 20 Invasive Line 1 10 Invasive Line 2 10 Oral 118 Output: Urine 600 Other: Voiding Method Toilet Toilet Weight 68.492 kg 68.492 kg GENERAL EXAM: Alert, 79-year-old male, sitting up in bed, comfortable in no apparent distress. HEAD: Normocephalic and atraumatic EYES: Normal reaction of pupils, equal size. NOSE: Clear with pink turbinates. THROAT: No erythema or exudates. NECK: No masses, no JVD. CHEST: No chest wall deformity. LUNGS: Equal air entry with right basilar crackles. Left lung mostly clear on auscultation. On 2 L/min nasal cannula. No conversational dyspnea or accessory muscle use while at rest CVS: S1 and S2 normal with grade soft systolic murmur, regular rhythm. No other extra heart sounds ABDOMEN: No hepatosplenomegaly, active bowel sounds, no guarding or rigidity. SPINE: No scoliosis or deformity SKIN: No rashes CENTRAL NERVOUS SYSTEM: No focal deficits, tone is normal in all 4 extremities. EXTREMITIES: No clubbing, cyanosis. No edema. Peripheral pulses are intact Results - Laboratory Findings CBC and BMP: 02/20/25 11:21 02/20/25 11:21 PT/INR, D-dimer PT 11.7 sec (10.0-12.5) 02/20/25 11:21 INR 1.1 (<1.2) 02/20/25 11:21 Abnormal lab findings: Abnormal Labs 02/20/25 02/20/25 11:21 11:21 WBC 17.69 H RBC 4.26 L Hgb 11.9 L Hct 36.4 L Immature Gran # 0.08 H Neutrophils # 16.19 H Lymphocytes # 0.59 L Sodium 136 L Potassium 5.3 H BUN 49 H Glucose 108 H - Diagnostic Findings Chest x-ray: image reviewed Assessment and Plan Assessment: Acute hypoxic respiratory failure, on 2 L/min nasal cannula, secondary to suspected aspiration pneumonia Acute leukocytosis History of recurrent right-sided pneumonia, Bronchoscopy with BAL performed January 09, 2025. Cultures revealed no growth and cytology was nondiagnostic for malignancy Chronic dysphagia, with a history of esophageal strictures and Schatzki ring, most recent undergoing balloon dilation May,. Repeat EGD done On 11/29/2024 remarkable for mild esophagitis. No noted esophageal strictures, hernias. 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 History of hiatal hernia History of gastroesophageal reflux disease Hypertension History of hyperlipidemia History of aortic valve stenosis status post transcatheter aortic valve replacement History of left shoulder replacement Former tobacco smoker Plan: Patient's medications, labs, chest x-ray reviewed Worsening confluent airspace opacity on the right Started on IV Zosyn in the ED Procalcitonin 0.46 Continue DuoNebs as needed Continue Symbicort and Spiriva inhalers We will continue to follow I have personally seen and examined the patient, performed the documentation and the assessment and plan as written. Number of minutes spent on the visit:20 Time with Patient: Greater than 30
[2025-02-21 06:06] LABS: Basophils # (A) 0.03 10*3/uL (0.00-0.10); Basophils % (A) 0.2 %; Eosinophils # (A) 0.25 10*3/uL (0.04-0.35); Eosinophils % (A) 1.9 %; HCT 30.1 % (39.6-50.0); Lymphocytes # (A) 1.10 10*3/uL (0.90-5.00); Lymphocytes % (A) 8.4 %; MCH 28.3 pg (27.0-32.0); MCHC 32.2 g/dL (32.0-37.0); MCV 87.8 fL (80.0-97.0); Monocytes # (A) 0.64 10*3/uL (0.20-1.00); Monocytes % (A) 4.9 %; Neutrophils # (A) 11.06 10*3/uL (1.80-7.70); Neutrophils % (A) 84.2 %; Platelet Count 186 10*3/uL (140-440); RBC 3.43 10*6/uL (4.40-5.60); RDW 17.4 % (11.5-14.5); WBC 13.13 10*3/uL (4.50-10.00)
[2025-02-21 06:40] LABS: ALT 18 U/L (4-49); AST 24 U/L (17-59); African American GFR (CKD) 88 (>60 ml/min/1.73 sqM); Albumin 3.0 g/dL (3.5-5.0); Alkaline Phosphatase 72 U/L (38-126); Anion Gap 5 mmol/L; Blood Urea Nitrogen 31 mg/dL (9-20); Calcium 8.5 mg/dL (8.4-10.2); Carbon Dioxide 27 mmol/L (22-30); Chloride 107 mmol/L (98-107); Glucose 84 mg/dL (74-99); Non-African American GFR(CKD) 76 (>60 ml/min/1.73 sqM); Potassium 4.6 mmol/L (3.5-5.1); Sodium 139 mmol/L (137-145); Total Protein 5.9 g/dL (6.3-8.2)
[2025-02-21 06:45] LABS: HGB 9.7 g/dL (13.0-17.0)
[2025-02-21] MEDS ORDERED: TIOTROPIUM 2.5 MCG INHALER INHALATION SCH (08:00)
[2025-02-21] MEDS: TIOTROPIUM 2.5 MCG INHALER INHALATION SCH (08:18)
[2025-02-21] MEDS: MELOXICAM 7.5 MG TAB PO SCH (09:06)
[2025-02-21] MEDS: EZETIMIBE 10 MG TAB PO SCH (09:07)
[2025-02-21] MEDS: FUROSEMIDE 20 MG TAB PO SCH (09:07)
[2025-02-21] MEDS: PANTOPRAZOLE 40 MG TABLET PO SCH (09:07)
[2025-02-21] MEDS: ATORVASTATIN 20 MG TAB PO SCH (09:07)
[2025-02-21] MEDS: PANTOPRAZOLE 40 MG/10 ML VIAL IV SCH (09:07)
[2025-02-21 11:05] VITALS: BMI 28.6
[2025-02-21] MEDS: HYDROcodone/APAP 5-325MG 1 EACH TAB PO PRN (13:17)
[2025-02-21] MEDS: AZITHROMYCIN 500 MG TAB PO SCH (13:17)
[2025-02-21] MEDS ORDERED: ALPRAZolam 0.25 MG TAB PO PRN (15:09)
--- NOTE | 2025-02-21 15:43 | P.PN ---
Subjective Progress Note Date: 02/21/25 Principal diagnosis: Reason for follow-up is sepsis/pneumonia Patient is a 79-year-old male with a past medical history significant for Heart Failure, GERD/Reflux, Hyperlipidemia, Hypertension, Musculoskeletal Disorder, Osteoarthritis (OA), patient has been brought into the hospital for evaluation of fever coughing and increasing shortness of breath patient be diagnosed subsequently pneumonia prompted this consultation. On today's evaluation that is 02/21/2025,the patient did have solution of his fever and is afebrile today, patient is on 2 L nasal cannula supplemental oxygen and mentioned breathing comfortably with no chest pain or any worsening cough.Patient denies having any nausea or vomiting, no abdominal pain and no diarrhea has been reported. Patient white count is down to 13.13, creatinine 0.94 urine for Legionella antigen is negative Objective - Vital Signs Vital signs: Vital Signs Temp 97.7 F 02/21/25 15:36 Pulse 62 02/21/25 15:36 Resp 18 02/21/25 15:36 BP 105/49 02/21/25 15:36 Pulse Ox 97 02/21/25 15:36 FiO2 Intake & Output 02/20/25 02/21/25 02/21/25 18:59 06:59 18:59 Intake Total 118 20 128 Output Total 600 Balance 118 -580 128 Weight 68.492 kg 73.4 kg 73.4 kg Intake: IV 20 10 Invasive Line 1 10 10 Invasive Line 2 10 Oral 118 118 Output: Urine 600 Other: Voiding Method Toilet Toilet # Voids 1 1 # Bowel Movements 1 - Exam GENERAL DESCRIPTION: An elderly male up in bed in no distress RESPIRATORY SYSTEM: Unlabored breathing , decreased breath sounds at bases HEART: S1 S2 regular rate and rhythm , ABDOMEN: Soft , no tenderness EXTREMITIES: No edema feet - Labs CBC & Chem 7: 02/21/25 05:38 02/21/25 05:38 Labs: Abnormal Lab Results - Last 24 Hours (Table) 02/21/25 02/21/25 Range/Units 05:38 05:38 WBC 13.13 H (4.50-10.00) 10*3/uL RBC 3.43 L (4.40-5.60) 10*6/uL Hgb 9.7 L D (13.0-17.0) g/dL Hct 30.1 L (39.6-50.0) % Immature Gran # 0.05 H (0.00-0.04) 10*3/uL Neutrophils # 11.06 H (1.80-7.70) 10*3/uL BUN 31 H (9-20) mg/dL Total Protein 5.9 L (6.3-8.2) g/dL Albumin 3.0 L (3.5-5.0) g/dL Assessment and Plan (1) Pneumonia Current Visit: Yes Status: Acute Code(s): J18.9 - PNEUMONIA, UNSPECIFIED ORGANISM SNOMED Code(s): 719069247 (2) Sepsis Current Visit: Yes Status: Acute Code(s): A41.9 - SEPSIS, UNSPECIFIED ORGANISM SNOMED Code(s): 71181671 Plan: 1patient presented hospital with sepsis in this patient who did have fever elevated white count meeting currently for SIRS source is right-sided pneumonia likely of aspiration etiology in this patient who did have a history of Schatzki ring nd previous balloon dilatation had also had a recent admission to hospital about a month ago with similar presentation with an aspiration pneumonia 2-we will try to obtain a sputum for Gram stain and urine for Legionella which it has been negative 3-patient to continue with Zosyn 3.375 grams every 8 hours and discontinue Zithromax Dictation was produced using [employer] dictation software. please excuse any grammatical, word or spelling errors. Time with Patient: Less than 30
--- NOTE | 2025-02-22 02:19 | PN ---
PROGRESS NOTE DATE OF SERVICE: 02/21/2025 SUBJECTIVE: This 79-year-old gentleman who was admitted with cough and sputum. Has probably esophageal diverticulum versus esophageal stricture. PAST MEDICAL HISTORY: Reviewed. OBJECTIVE: VITAL SIGNS: Pulse is 60, blood pressure 112/80, respiration 18. HEENT: Conjunctivae normal. NECK: No jugular venous distention. CARDIOVASCULAR: S1 and S2. RESPIRATIONS: Bases few scattered rhonchi. ABDOMEN: Soft, nondistended. NERVOUS SYSTEM: Nonfocal. LABORATORY DATA: WBC 13.3. ASSESSMENT: 1. Acute right lower lobe pneumonia, possibly aspiration, recurrent. 2. Possible esophageal diverticulum versus esophageal stenosis and Schatzki ring. 3. Gastroesophageal reflux disease. 4. Hypertension. 5. Hyperlipidemia. 6. Multiple complex medical issues. RECOMMENDATIONS: Continue symptomatic treatment. Continue the broad-spectrum IV antibiotics. Repeat labs. Recommend close followup with [facility] regarding further workup and evaluation. Further recommendations to follow. MMODL / IJN: [id number] / MADELYN
[2025-02-22 07:20] LABS: Basophils # (A) 0.03 10*3/uL (0.00-0.10); Basophils % (A) 0.3 %; Eosinophils # (A) 0.28 10*3/uL (0.04-0.35); Eosinophils % (A) 2.9 %; HCT 31.9 % (39.6-50.0); HGB 9.9 g/dL (13.0-17.0); Lymphocytes # (A) 0.86 10*3/uL (0.90-5.00); Lymphocytes % (A) 8.9 %; MCH 27.2 pg (27.0-32.0); MCHC 31.0 g/dL (32.0-37.0); MCV 87.6 fL (80.0-97.0); Monocytes # (A) 0.89 10*3/uL (0.20-1.00); Monocytes % (A) 9.2 %; Neutrophils # (A) 7.54 10*3/uL (1.80-7.70); Neutrophils % (A) 78.3 %; Platelet Count 204 10*3/uL (140-440); RBC 3.64 10*6/uL (4.40-5.60); RDW 17.2 % (11.5-14.5); WBC 9.64 10*3/uL (4.50-10.00)
[2025-02-22 07:41] LABS: ALT 19 U/L (4-49); AST 24 U/L (17-59); African American GFR (CKD) >90 (>60 ml/min/1.73 sqM); Albumin 3.4 g/dL (3.5-5.0); Alkaline Phosphatase 74 U/L (38-126); Anion Gap 5 mmol/L; Blood Urea Nitrogen 23 mg/dL (9-20); Calcium 8.8 mg/dL (8.4-10.2); Carbon Dioxide 29 mmol/L (22-30); Chloride 104 mmol/L (98-107); Glucose 95 mg/dL (74-99); Non-African American GFR(CKD) 81 (>60 ml/min/1.73 sqM); Potassium 4.5 mmol/L (3.5-5.1); Sodium 138 mmol/L (137-145); Total Protein 6.5 g/dL (6.3-8.2)
--- NOTE | 2025-02-22 08:49 | XR ---
EXAMINATION TYPE: XR chest 1V portable DATE OF EXAM: 02/22/2025 5:33 AM COMPARISON: 02/20/2025 CLINICAL INDICATION: Male, 79 years old with history of sob, , FINDINGS: Heart mildly enlarged. Diffuse interstitial and bilateral patchy opacities persist. Hyperinflation. C alcified granulomas or pleural plaques along the periphery of the left upper lobe redemonstrated. Ove rall similar appearance. End-stage degenerative change right shoulder and a reverse left shoulder art hroplasty. IMPRESSION: COPD with ongoing diffuse interstitial and patchy infiltrates versus pulmonary edema. [facility], Workstation: [facility], 02/22/2025 8:47 AM
[2025-02-22] MEDS: PANTOPRAZOLE 40 MG TABLET PO SCH (10:00)
--- NOTE | 2025-02-22 12:33 | CDI ---
Documentation Clarification Form Date: 02/22/2025 11:44:36 AM From: Mitzi Jensen RN, CCDS Phone: [phone] Admit Date: 02/20/2025 03:39:00 PM Patient Name: Armando Sung Visit Number: [id number] Discharge Date: ATTENTION: The Clinical Documentation Specialists (CDI) and [facility] Coding Staff appreciate your assistance in clarifying documentation. Please respond to the clarification below the line at the bottom and electronically sign. The CDI & [facility] Coding staff will review the response and follow-up if needed. Please note: Queries are made part of the Legal Health Record. If you have any questions, please contact the author of this message via ITS. Doctor. Yanelis Fields The patient has sepsis documented in the ID Consult and subsequent progress notes. Based on this information and the findings below, is there an additional diagnosis that is clinically appropriate for this patient? History/Risk Factors: Heart Failure, GERD/Reflux, Hyperlipidemia, Hypertension, Clinical Indicators: 79-year-old male present for evaluation of fever coughing and increasing shortness of breath. He eats laying down per . 02/20 WBC 17.69, NA 136, BUN 49, K+ 5.3, BNP 1010, UA; NEG 02/20 Lactic acid: 1.4 02/20 Blood cultures: (pending) no growth after 24 hours 02/20 Vital signs: (10:48) 93/60 87 18 100.7 90% RA 93% 2/L, (ll41) 87/46 73 18 89% RA, (15:48) 100/55 64 18 98.0 94% 2/L NC 02/20 ID Consult: patient presented hospital with sepsis in this patient who did have fever elevated white count meeting currently for SIRS source is right-sided pneumonia likely of aspiration etiology in this patient who did have a history of Schatzki ring and previous balloon dilatation. Treatment: Rocephin 2 GM IVPB Once 02/20>2 GM IVPB Q 23 HRS 02/21-02/21 Zosyn 3.375 GM IVPB Q 8 HRS 02/20-02/22 Ventolin Nebulized 2.5 MG Inhalation RT Q4 PRN 02/20 LR 1,000 Bolus 02/20 X 2 Is there an additional diagnosis that is clinically appropriate for this patient? [ ] Sepsis, due to Aspiration Pneumonia ruled in [ ] Sepsis Ruled out [ ] Other, please specify [ ] Unable to determine SIRS Criteria: 2 or more of the following may indicate SIRS Temperature < 96.8F (36C) or > 101.0F (38.3C) Heart Rate > 90 bpm Respiratory Rate > 20 breaths/min or PaCO2 < 32 mmHg White Blood Cell Count > 12,000 or < 4,000 cells/mm3 or > 10% bands (Template Last Reviewed: August 2022) Sepsis Ruled out MTDD
--- NOTE | 2025-02-22 15:08 | P.PN ---
Subjective Progress Note Date: 02/22/25 Principal diagnosis: Acute hypoxic respiratory failure secondary to recurrent aspiration pneumonia Patient is a 79-year-old male with past medical history significant for dysphag ia, esophageal strictures with previous balloon dilation, hiatal hernia, GERD, recurrent pneumonias, hypertension, hyperlipidemia, aortic valve stenosis status post TAVR, and recent left shoulder replacement. The patient has been treated on several occasions for recurrent pneumonias. In fact, he was just hospitalized last month for the same. Did undergo bronchoscopy with BAL on 01/09/2025, bacterial cultures were nondiagnostic. Fungal cultures showing Gretchen albicans and Krusei. Patient return to the emergency department yesterday morning complaining of fevers, coughing, and shortness of breath. Starting over the last 24 hours. Did have a fever of 100.7 F on arrival. CBC showing leukocytosis with WBC count of 17.69. Chest x-ray showing chronic interstitial changes and worsening patchy and confluent airspace opacity on the right. Pleural-based calcifications at the right diaphragm. Started on IV Zosyn in the ED. Remaining labs including a CBC with a WBC count of 17.69, hemo globin 11.9, platelets 246. CMP: Sodium 136, potassium 5.3, chloride 99, serum bicarb 26, BUN 49, creatinine 1.15, glucose 1.4. LFTs not elevated. NT proBNP 1100 send. Procalcitonin level 0.46. Urinalysis unremarkable for infection. Negative for influenza A/B, RSV, COVID. Urine Legionella antigen negative. Patient currently being seen on the cardiac stepdown unit. He is resting comfortably on 2 L/min nasal cannula. No acute distress. Symptoms started rather abruptly over the last 24 hours. Endorsing increased work of breathing, persistent congested cough, and intermittent fevers. Denies hemoptysis. Denies pleurisy. Denies sick contacts. Denies recent travel. He has ongoing issues with dysphagia. Follows with pediatric clinical nurse specialist on an outpatient basis. Most recent EGD done 11/29/2024 remarkable for mild acute on chronic esophagitis. No strictures, dysplasia. Vital signs are stable. Patient was seen today on 02/22/2025, patient remains on oxygen at 1 L nasal cannula with O2 saturation of 98%, seems to be quite comfortable, not in any distress, is at bedside, chest x-ray continues to show evidence of significant airspace disease in the right lung, especially the right lower lobe consistent with aspiration, but clinically the patient is feeling better breathing easier. He is on antibiotics in the form of Zosyn. WBC count is down to 9.6 from 17.6 on admission electrolytes are normal BUN is normal creatinine is normal blood cultures are negative so far. Sputum cultures, not done Objective - Vital Signs Vital signs: Vital Signs Temp 97.9 F 02/22/25 10:00 Pulse 68 02/22/25 11:55 Resp 18 02/22/25 11:15 BP 121/73 02/22/25 11:15 Pulse Ox 98 02/22/25 11:15 FiO2 Intake & Output 02/21/25 02/22/25 02/22/25 18:59 06:59 18:59 Intake Total 848 30 110 Output Total 200 Balance 848 30 -90 Weight 73.4 kg 70.9 kg Intake: IV 10 30 Invasive Line 1 10 20 Invasive Line 3 10 Oral 838 110 Output: Urine 200 Other: Voiding Method Toilet Toilet Toilet # Voids 1 1 # Bowel Movements 1 1 - Exam Physical exam revealed an 79-year-old, in no distress, on 1 L nasal cannula Head: Atraumatic, normocephalic EENT: PERRLA, EOMI, nonicteric, no neck masses, no JVD, no stridor, moist mucous membranes Chest: Symmetrical chest expansion Lungs: Good breath sound bilaterally minimal crackles right base Cardiac: Normal S1-S2, no S3 gallop, no murmur, no bruit Abdomen: Soft nontender no megaly no rebound no guarding good bowel sounds Extremities: No clubbing edema or cyanosis, good pulses bilaterally Musculoskeletal: No deformities and no limitation range of motion Neurologic: Alert oriented x 3 no gross focal neurologic deficit Psychiatric: Normal mood and affect and no mental status examination Skin: No rashes. - Labs CBC & Chem 7: 02/22/25 06:47 02/22/25 06:47 Labs: Abnormal Lab Results - Last 24 Hours (Table) 02/22/25 02/22/25 Range/Units 06:47 06:47 RBC 3.64 L (4.40-5.60) 10*6/uL Hgb 9.9 L (13.0-17.0) g/dL Hct 31.9 L (39.6-50.0) % MCHC 31.0 L (32.0-37.0) g/dL MPV 9.3 L (9.5-12.2) fL Lymphocytes # 0.86 L (0.90-5.00) 10*3/uL BUN 23 H (9-20) mg/dL Albumin 3.4 L (3.5-5.0) g/dL Microbiology - Last 24 Hours (Table) 02/20/25 11:21 Blood Culture - Preliminary Blood Assessment and Plan Assessment: Impression: Acute hypoxic respiratory failure, on 2 L/min nasal cannula, secondary to suspected aspiration pneumonia Acute leukocytosis History of recurrent right-sided pneumonia, Bronchoscopy with BAL performed January 09, 2025. Cultures revealed no growth and cytology was nondiagnostic for malignancy Chronic dysphagia, with a history of esophageal strictures and Schatzki ring, most recent undergoing balloon dilation May,. Repeat EGD done On 11/29/2024 remarkable for mild esophagitis. No noted esophageal strictures, hernias. 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 Chest x-ray remains a bit concerning We will continue to follow Time with Patient: Less than 30
--- NOTE | 2025-02-22 15:23 | P.PN ---
Subjective Progress Note Date: 02/22/25 Principal diagnosis: Reason for follow-up is sepsis/pneumonia Patient is a 79-year-old male with a past medical history significant for Heart Failure, GERD/Reflux, Hyperlipidemia, Hypertension, Musculoskeletal Disorder, Osteoarthritis (OA), patient has been brought into the hospital for evaluation of fever coughing and increasing shortness of breath patient be diagnosed subsequently pneumonia prompted this consultation. On today's evaluation that is 02/22/2025, the patient continues to be afebrile, the patient is on 1 L nasal oxygen "and breathing comfortably, the Pt denies having any chest pain and cough has decreased in intensity, the patient denies having any abdominal pain no vomiting or any diarrhea. Patient white normalized to 9.64, creatinine 0.87 blood culture negative no sputum collected Objective - Vital Signs Vital signs: Vital Signs Temp 97.9 F 02/22/25 10:00 Pulse 68 02/22/25 11:55 Resp 18 02/22/25 11:15 BP 121/73 02/22/25 11:15 Pulse Ox 98 02/22/25 11:15 FiO2 Intake & Output 02/21/25 02/22/25 02/22/25 18:59 06:59 18:59 Intake Total 848 30 110 Output Total 200 Balance 848 30 -90 Weight 73.4 kg 70.9 kg Intake: IV 10 30 Invasive Line 1 10 20 Invasive Line 3 10 Oral 838 110 Output: Urine 200 Other: Voiding Method Toilet Toilet Toilet # Voids 1 1 # Bowel Movements 1 1 - Exam GENERAL DESCRIPTION: An elderly male up in bed in no distress RESPIRATORY SYSTEM: Unlabored breathing , decreased breath sounds at bases HEART: S1 S2 regular rate and rhythm , ABDOMEN: Soft , no tenderness EXTREMITIES: No edema feet - Labs CBC & Chem 7: 02/22/25 06:47 02/22/25 06:47 Labs: Abnormal Lab Results - Last 24 Hours (Table) 02/22/25 02/22/25 Range/Units 06:47 06:47 RBC 3.64 L (4.40-5.60) 10*6/uL Hgb 9.9 L (13.0-17.0) g/dL Hct 31.9 L (39.6-50.0) % MCHC 31.0 L (32.0-37.0) g/dL MPV 9.3 L (9.5-12.2) fL Lymphocytes # 0.86 L (0.90-5.00) 10*3/uL BUN 23 H (9-20) mg/dL Albumin 3.4 L (3.5-5.0) g/dL Microbiology - Last 24 Hours (Table) 02/20/25 11:21 Blood Culture - Preliminary Blood Assessment and Plan (1) Pneumonia Current Visit: Yes Status: Acute Code(s): J18.9 - PNEUMONIA, UNSPECIFIED ORGANISM SNOMED Code(s): 939922943 (2) Sepsis Current Visit: Yes Status: Acute Code(s): A41.9 - SEPSIS, UNSPECIFIED ORGANISM SNOMED Code(s): 83952189 Plan: 1patient presented hospital with sepsis in this patient who did have fever elevated white count meeting currently for SIRS source is right-sided pneumonia likely of aspiration etiology in this patient who did have a history of Schatzki ring nd previous balloon dilatation had also had a recent admission to hospital about a month ago with similar presentation with an aspiration pneumonia 2-blood culture pending sputum not collected, urine for Legionella which it has been negative 3-patient to continue with Zosyn 3.375 grams every 8 hours and hopefully transition to oral antibiotic on discharge Dictation was produced using [employer] dictation software. please excuse any grammatical, word or spelling errors. Time with Patient: Less than 30
[2025-02-22 23:22] VITALS: RESP 18
--- NOTE | 2025-02-23 01:16 | PN ---
PROGRESS NOTE DATE OF SERVICE: 02/22/2025 SUBJECTIVE: This is an 79-year-old gentleman who was admitted after right lower lobe pneumonia with possibly aspiration is being closely monitored. No chest pain. No palpitations. IV antibiotic. OBJECTIVE: VITAL SIGNS: Pulse is 71, blood pressure 120/74, and respirations 18. CHEST: A few scattered rhonchi. ABDOMEN: Soft. NERVOUS SYSTEM: No focal deficits. LABORATORY DATA: WBC 9.64. Rest of the labs are noted. ASSESSMENT: 1. Acute right lower lobe pneumonia, possibly aspiration, recurrent. 2. Possible esophageal diverticulum versus esophageal stenosis and Schatzki ring and possible aspiration. 3. Gastroesophageal reflux disease. 4. Hypertension. 5. Hyperlipidemia. 6. Multiple complex medical issues. RECOMMENDATIONS: Recommend to continue current management. I recommend repeat labs tomorrow. Continue the antibiotics, bronchodilators. Closely follow with Infectious Disease as well as Pulmonary. Prognosis guarded. Further recommendations to follow. MMODL / IJN: [id number] /
[2025-02-23] MEDS: HYDROcodone/APAP 10-325MG 1 EACH TAB PO PRN (06:33)
[2025-02-23 07:29] LABS: Basophils # (A) 0.04 10*3/uL (0.00-0.10); Basophils % (A) 0.5 %; Eosinophils # (A) 0.50 10*3/uL (0.04-0.35); Eosinophils % (A) 6.1 %; HCT 32.9 % (39.6-50.0); HGB 11.0 g/dL (13.0-17.0); Lymphocytes # (A) 1.23 10*3/uL (0.90-5.00); Lymphocytes % (A) 15.1 %; MCH 29.1 pg (27.0-32.0); MCHC 33.4 g/dL (32.0-37.0); MCV 87.0 fL (80.0-97.0); Monocytes # (A) 0.76 10*3/uL (0.20-1.00); Monocytes % (A) 9.3 %; Neutrophils # (A) 5.61 10*3/uL (1.80-7.70); Neutrophils % (A) 68.9 %; Platelet Count 225 10*3/uL (140-440); RBC 3.78 10*6/uL (4.40-5.60); RDW 17.2 % (11.5-14.5); WBC 8.15 10*3/uL (4.50-10.00)
[2025-02-23 07:35] LABS: African American GFR (CKD) >90 (>60 ml/min/1.73 sqM); Anion Gap 8 mmol/L; Blood Urea Nitrogen 27 mg/dL (9-20); Calcium 8.9 mg/dL (8.4-10.2); Carbon Dioxide 26 mmol/L (22-30); Chloride 104 mmol/L (98-107); Glucose 91 mg/dL (74-99); Non-African American GFR(CKD) 85 (>60 ml/min/1.73 sqM); Potassium 4.7 mmol/L (3.5-5.1); Sodium 138 mmol/L (137-145)
--- NOTE | 2025-02-23 11:59 | P.PN ---
Subjective Progress Note Date: 02/23/25 Principal diagnosis: Acute hypoxic respiratory failure secondary to recurrent aspiration pneumonia Patient is a 79-year-old male with past medical history significant for dysphag ia, esophageal strictures with previous balloon dilation, hiatal hernia, GERD, recurrent pneumonias, hypertension, hyperlipidemia, aortic valve stenosis status post TAVR, and recent left shoulder replacement. The patient has been treated on several occasions for recurrent pneumonias. In fact, he was just hospitalized last month for the same. Did undergo bronchoscopy with BAL on 01/09/2025, bacterial cultures were nondiagnostic. Fungal cultures showing Gretchen albicans and Krusei. Patient return to the emergency department yesterday morning complaining of fevers, coughing, and shortness of breath. Starting over the last 24 hours. Did have a fever of 100.7 F on arrival. CBC showing leukocytosis with WBC count of 17.69. Chest x-ray showing chronic interstitial changes and worsening patchy and confluent airspace opacity on the right. Pleural-based calcifications at the right diaphragm. Started on IV Zosyn in the ED. Remaining labs including a CBC with a WBC count of 17.69, hemo globin 11.9, platelets 246. CMP: Sodium 136, potassium 5.3, chloride 99, serum bicarb 26, BUN 49, creatinine 1.15, glucose 1.4. LFTs not elevated. NT proBNP 1100 send. Procalcitonin level 0.46. Urinalysis unremarkable for infection. Negative for influenza A/B, RSV, COVID. Urine Legionella antigen negative. Patient currently being seen on the cardiac stepdown unit. He is resting comfortably on 2 L/min nasal cannula. No acute distress. Symptoms started rather abruptly over the last 24 hours. Endorsing increased work of breathing, persistent congested cough, and intermittent fevers. Denies hemoptysis. Denies pleurisy. Denies sick contacts. Denies recent travel. He has ongoing issues with dysphagia. 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 Most recent EGD done 11/29/2024 remarkable for mild acute on chronic esophagitis. No strictures, dysplasia. Vital signs are stable. Patient was seen today on 02/22/2025, patient remains on oxygen at 1 L nasal cannula with O2 saturation of 98%, seems to be quite comfortable, not in any distress, is at bedside, chest x-ray continues to show evidence of significant airspace disease in the right lung, especially the right lower lobe consistent with aspiration, but clinically the patient is feeling better breathing easier. He is on antibiotics in the form of Zosyn. WBC count is down to 9.6 from 17.6 on admission electrolytes are normal BUN is normal creatinine is normal blood cultures are negative so far. Sputum cultures, not done Patient was seen today on 02/23/2025, patient is doing well today, relatively asymptomatic, O2 sat is 94% on room air. Patient remains on Zosyn patient can be transitioned to oral antibiotics/Augmentin and consider discharging the patient home today with outpatient follow-up. Patient to be cleared by infectious disease. Objective - Vital Signs Vital signs: Vital Signs Temp 97.8 F 02/23/25 09:09 Pulse 76 02/23/25 09:09 Resp 18 02/23/25 09:09 BP 160/82 02/23/25 09:09 Pulse Ox 94 L 02/23/25 09:09 FiO2 Intake & Output 02/22/25 02/23/25 02/23/25 18:59 06:59 18:59 Intake Total 330 10 240 Output Total 200 300 Balance 130 -290 240 Weight 70 kg Intake: IV 10 Invasive Line 3 10 Oral 330 240 Output: Urine 200 300 Other: Voiding Method Toilet Toilet Toilet # Voids 1 - Exam Physical exam revealed an 79-year-old, in no distress, on 1 L nasal cannula Head: Atraumatic, normocephalic EENT: PERRLA, EOMI, nonicteric, no neck masses, no JVD, no stridor, moist mucous membranes Chest: Symmetrical chest expansion Lungs: Good breath sound bilaterally no crackles, rhonchi or wheezes Cardiac: Normal S1-S2, no S3 gallop, no murmur, no bruit Abdomen: Soft nontender no megaly no rebound no guarding good bowel sounds Extremities: No clubbing edema or cyanosis, good pulses bilaterally Musculoskeletal: No deformities and no limitation range of motion Neurologic: Alert oriented x 3 no gross focal neurologic deficit Psychiatric: Normal mood and affect and no mental status examination Skin: No rashes. - Labs CBC & Chem 7: 02/23/25 06:27 02/23/25 06:27 Labs: Abnormal Lab Results - Last 24 Hours (Table) 02/23/25 02/23/25 Range/Units 06:27 06:27 RBC 3.78 L (4.40-5.60) 10*6/uL Hgb 11.0 L (13.0-17.0) g/dL Hct 32.9 L (39.6-50.0) % Eosinophils # 0.50 H (0.04-0.35) 10*3/uL BUN 27 H (9-20) mg/dL Microbiology - Last 24 Hours (Table) 02/20/25 11:21 Blood Culture - Preliminary Blood Assessment and Plan Assessment: Impression: Acute hypoxic respiratory failure, on 2 L/min nasal cannula, secondary to suspected aspiration pneumonia Acute leukocytosis History of recurrent right-sided pneumonia, Bronchoscopy with BAL performed January 09, 2025. Cultures revealed no growth and cytology was nondiagnostic for malignancy Chronic dysphagia, with a history of esophageal strictures and Schatzki ring, mo st recent undergoing balloon dilation May,. Repeat EGD done On 11/29/2024 remarkable for mild esophagitis. No noted esophageal strictures, hernias. 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
[2025-02-23 12:24] VITALS: BP 153/77; TEMP 98.5
[2025-02-23 13:07] VITALS: PULSE 70
== END 2025-02-23 13:27 | disposition home or self-care (01) | DRG 177 ==
LOC: EC 10:32 → 3SCARD 15:39
PROVIDERS: ADMIT Internal Medicine; ATTEND Internal Medicine
DX: J69.0 Pneumonitis due to inhalation of food and vomit (principal); J96.01 Acute respiratory failure with hypoxia; I11.0 Hypertensive heart disease with heart failure; I50.9 Heart failure, unspecified; J44.0 Chronic obstructive pulmonary disease with (acute) lower respiratory infection; Z95.2 Presence of prosthetic heart valve; J61 Pneumoconiosis due to asbestos and other mineral fibers; R13.19 Other dysphagia; K22.5 Diverticulum of esophagus, acquired; K21.00 Gastro-esophageal reflux disease with esophagitis, without bleeding; E78.5 Hyperlipidemia, unspecified; Z96.612 Presence of left artificial shoulder joint; Z79.1 Long term (current) use of non-steroidal anti-inflammatories (NSAID); Z79.82 Long term (current) use of aspirin; Z87.891 Personal history of nicotine dependence; Z79.899 Other long term (current) drug therapy
CPT/HCPCS: 36415; 71045; 71046; 80048; 80053; 81003; 83605; 83735; 83880; 84145; 85025; 85610; 85730; 87040; 87449; 87636; 93005; 94640; 94760; 96361; 96365; 96366; 96368; 99285